=== PATIENT | male | born 1955 | race Caucasian/White ===

== ENCOUNTER 2016-08-06 17:20 | Inpatient (IN) ==
--- NOTE | 2016-08-06 18:24 | CT Report ---
CT head/brain wo con Indication: Mental status changes. CT BRAIN WITHOUT CONTRAST DLP: 1109 mGy*cm. One or more of the following dose reduction techniques was used: Automated exposure control, adjustment of the mA and/or kV according the patient size, or use of iterative reconstruction techniques. Comparison: None. Date of admission: 08/06/2016. Technique: Axial noncontrast CT images of the brain were obtained. Findings: Extensive chronic ischemic changes present throughout both hemispheres and throughout cerebellum. This consists of a broad band of infarct involving the left frontal, parietal and occipital lobe, scattered small cortical infarcts of the right frontoparietal lobe, large infarct of the right occipital lobe, too numerous to count bilateral lacunar infarcts basal ganglia, right temporal lobe infarct, and multiple bilateral cerebellar hemispheric infarcts. This appears superimposed on severe chronic small vessel ischemic change of the deep white matter, none of which appears normal. Delineating acute on chronic pathology is virtually impossible in this setting. Severe volume loss is present, accentuated by encephalomalacia and ex vacuo dilatation of the ventricles. No acute hemorrhage. I see no mass. Severe mucosal thickening of the left frontal, left maxillary and ethmoid air cells noted. Mild sphenoid sinus disease is present as well. Left mastoid air cells are completely opacified. The right are clear. Impression: 1. Extensive chronic ischemic changes as detailed above including too numerous to count cortical infarcts of both cerebellar and cerebral hemispheres, multiple lacunar infarcts of the basal ganglia and severe small vessel ischemic change of the deep white matter. It is virtually impossible to delineate acute ischemic pathology given the degree of underlying chronic disease present. 2. No acute hemorrhage. No evidence of mass. 3. Severe generalized atrophy accentuated by multiple infarcts. 4. Significant pansinusitis. Opacification of the left mastoid air cells. PROCEDURE INTERPRETED AT [facility] DEPARTMENT OF RADIOLOGY Final Report Signed by: Tino Solorzano M.D.
--- NOTE | 2016-08-06 18:27 | XRay Report ---
XR chest 1V portable Indication: Altered mental status. Chest one view: No comparison. Heart is minimally enlarged. Mediastinal contours unremarkable. Lungs are hypoinflated with bibasilar atelectasis. There is mild stranding of the infrahilar lungs, worse on the left, suspicious for aspiration pneumonitis. Impression: Pulmonary hypoinflation with atelectasis. Bilateral infrahilar interstitial scarring or pneumonitis. PROCEDURE INTERPRETED AT [facility] DEPARTMENT OF RADIOLOGY Final Report Signed by: Tino Solorzano M.D.
[2016-08-06 18:39] LABS: Apearance,Urine CLEAR (Clear); Bacteria,Urine Occasional /HPF (Few); Bilirubin,Urine Negative (Negative); Blood, Urine Negative (Negative); Glucose,Urine (UA) Negative (Negative); Ketones,Urine Negative (Negative); Nitrite,Urine Negative (Negative); Protein,Urine 100 MG/DL; Urine Color Straw (Yellow); Urine Specific Gravity 1.005 (1.001-1.035); Urine Urobilinogen < 2.0 EU/DL (0.2-1.0); WBC,Urine 1 /HPF (0-6)
[2016-08-06 18:43] LABS: Alanine Aminotransferase 11 U/L (16-61); Alkaline Phosphatase 82 U/L (45-117); Aspartate Amino Transferase 15 U/L (0-37); Blood Urea Nitrogen 83 MG/DL (7-18); Calcium 8.2 MG/DL (8.5-10.1); Glucose 111 MG/DL (74-106); Magnesium 2.3 MG/DL (1.8-2.4); Osmolality,Calculated 289.5 MOS/KG (273-304); Potassium 5.4 MMOL/L (3.5-5.1); Sodium 132 MMOL/L (136-145); Total Protein 6.5 G/DL (6.4-8.3); Troponin I Only < 0.015 NG/ML (0.00-0.045)
--- NOTE | 2016-08-06 18:53 | Emergency Department Note ---
Shukri Trinh Brittany, am scribing for, and in the presence of, Zohaib Newberry MD 17:48. Rohith Trinh Phillip K, MD, personally performed the services described in this documentation, ascribed by Layne Watt in my presence, and it is both accurate and complete [id number] . Arrival - Arrival Mode of Arrival: Stretcher Limitations: No Limitations Source: Family, EMS - History of Present Illness Onset (ago): day(s) (Started 2-3 days) Consistency: constant Severity: moderate, severe <Zohaib Newberry - Last Filed: 08/06/16 18:53> <Tsering Grullon - Last Filed: 08/06/16 20:03> - Arrival Chief Complaint: Altered Mental Status Stated Complaint: AMS - History of Present Illness HPI Narrative: This is a 61 y/o chronically ill appearing white male,who presents to the ED by EMS for further evaluation of a distended abdomen. 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 His family states pt gets a distended abdomen when he has a UTI and kidney infections, but these past 3-4 days the distention has progressed worse. He has had a cough with greenish/ yellowish sputum and fever as well. His family also reports a nose bleed on and off for the past week. His family reports pt does not have a cath. He normally sees Dr. Driscoll at the [facility] in [place]. Pt has no had vomiting. He has a feeding tube which was placed 7 years ago. Pt's family reports he takes a Baby Aspirin daily q.h.s. Pt has no other complaints/pain in the ED at this time. Pt has a PMHx CVA and paralysis. (Layne Watt) This is a 61 y/o chronically ill appearing white male,who presents to the ED by EMS for further evaluation of a distended abdomen. 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 His family states pt gets a distended abdomen when he has a UTI and kidney infections, but these past 3-4 days the distention has progressed worse. He has had a cough with greenish/ yellowish sputum and fever as well. His family also reports a nose bleed on and off for the past week. His family reports pt does not have a cath. He normally sees Dr. Driscoll at the [facility] in [place]. Pt has no had vomiting. He has a feeding tube which was placed 7 years ago. Pt's family reports he takes a Baby Aspirin daily q.h.s. Pt has no other complaints/pain in the ED at this time. Pt has a PMHx CVA and paralysis. (Zohaib Nebwerry) Allergies/Adverse Reactions: Allergies Allergy/AdvReac Type Severity Reaction Status Date / Time No Known Allergies Allergy Verified 08/06/16 17:29 Home Medications: Home Medications Medication Instructions Recorded Confirmed Type Aspirin EC Tab 81 mg PO QPM 08/06/16 08/06/16 History Ferrous Sulfate 325 mg PO BID 08/06/16 08/06/16 History Finasteride 5 mg PO DAILY 08/06/16 08/06/16 History Isosorbide Mononitrate [Imdur] 30 mg PO DAILY 08/06/16 08/06/16 History Methocarbamol 1,000 mg PO BID PRN 08/06/16 08/06/16 History Metoprolol Tartrate 50 mg PO 1000,1600,2200 08/06/16 08/06/16 History Omeprazole 40 mg PO DAILY 08/06/16 08/06/16 History Pregabalin [Lyrica] 225 mg PO 1000,2200 08/06/16 08/06/16 History Sertraline [Zoloft] 25 mg PO DAILY 08/06/16 08/06/16 History Simvastatin 20 mg PO BEDTIME 08/06/16 08/06/16 History Tamsulosin [Flomax] 0.4 mg PO DAILY 08/06/16 08/06/16 History Valsartan 80 mg PO 0600,1000,1600,2200 08/06/16 08/06/16 History cloNIDine TAB [Catapres Tab] 0.1 mg PO Q4H 08/06/16 08/06/16 History hydrALAZINE TAB [Apresoline Tab] 25 mg PO 1300 08/06/16 08/06/16 History hydrALAZINE TAB [Apresoline Tab] 50 mg PO 0600 08/06/16 08/06/16 History hydrALAZINE TAB [Apresoline Tab] 75 mg PO 1000,1600 08/06/16 08/06/16 History metFORMIN [Glucophage] 500 mg PO BID W/MEALS 08/06/16 08/06/16 History Review of System - Review of System 12 point system: reviewed and no additional remarkable complaints except as stated - Review of System Constitutional: Present: fever Respiratory: Present: cough (Productive of greenish/yellowish sputum) Gastrointestinal: Present: abdominal pain (Abdomen distended). Absent: vomiting <Candelario Newberryip Margarita - Last Filed: 08/06/16 18:53> Medical,Surgical,& Family Hx - Social History Functional capacity: bed bound <Zohaib Newberry Margarita - Last Filed: 08/06/16 18:53> Exam - General General appearance: alert, in no apparent distress, other (Chronically ill appearing) - Head Head exam: Present: atraumatic, normocephalic, normal inspection - Eye Eye exam: Present: normal appearance, PERRL, EOMI. Absent: nystagmus, miosis, mydriasis - ENT ENT exam: Present: mucous membranes moist, other (Dried blood to the left nares) - Neck Neck exam: Present: normal inspection, full ROM, trachea midline. Absent: tenderness, meningismus, lymphadenopathy, thyromegaly - Chest Chest inspection: Present: normal inspection, symmetric chest wall rise. Absent : tenderness, rash, abscess - Respiratory Respiratory exam: Present: normal lung sounds bilaterally. Absent: rales, respiratory distress, rhonchi, stridor, wheezes - Cardiovascular Cardiovascular exam: Present: regular rate, irregular rhythm, normal heart sounds. Absent: murmur, rubs, gallop, clicks, JVD - Abdominal Exam Abdominal exam: Present: distention, other (High pitched tinkling BS, Feeding tube in place). Absent: tenderness, guarding, rebound, rigidity - Rectal Exam Rectal exam: Present: deferred - Extremities Exam Extremities exam: Present: normal capillary refill, other (BIlateral swelling to the upper extremities). Absent: calf tenderness - Back Exam Back exam: Present: normal inspection, full ROM. Absent: tenderness, muscle spasm, rashes - Neurological Exam Neurological exam: Present: alert, oriented X3, CN II-XII intact, other ( Weakness to the right side of the body, paralysis to the right side of the body) . Absent: motor sensory deficit - Psychiatric Psychiatric exam: Present: normal affect, normal mood. Absent: agitated, anxious, flat affect, manic - Skin Skin exam: Present: warm, dry, intact, normal color. Absent: rash, cyanosis, diaphoresis, erythema, pallor, mottled <Zohaib Newberry - Last Filed: 08/06/16 18:53> Vital Signs: Vital Signs Temperature 97.9 F 08/06/16 17:30 Pulse Rate 87 08/06/16 18:30 Respiratory Rate 17 08/06/16 18:30 Blood Pressure 133/66 08/06/16 18:30 O2 Sat by Pulse Oximetry 98 08/06/16 18:30 Course <Zohaib Newberry - Last Filed: 08/06/16 18:53> <Tsering Grullon - Last Filed: 08/06/16 20:03> Course Narrative: spoke with Dr Estrada who will see pt and agrees to admission. (Tsering Grullon) Results - Labs CBC & BMP: 08/06/16 18:07 Lab Results: I have reviewed the patients labs (urinalysis is negative) - Diagnostic Findings Procedure: Chest x-ray: report reviewed by me (Pulmonary hypoinflation with atelectasis. Bilateral infrahilar interstitial scarring or pneumonitis. ), CT: report reviewed by me (Head CT: 1. Extensive chronic ischemic changes as detailed above including too numerous to count cortical infarcts of both cerebellar and cerebral hemispheres, multiple infarcts of the basal ganglia and severe small vessel ischemic change of the deep white matter. It is veriually impossible to delineate acute ischemic pathology [facility] degree of underlying chronic disease presetn. 2. No acute hemorrhage. No evidence of mass. 3. Severe generalized atrophy accentuated by mulitple infarcts. 4. Significant pansinusitis. Opacification of ino left mastoid air cells. ) <Zohaib Newberry - Last Filed: 08/06/16 18:53> - Labs CBC & BMP: 08/06/16 19:04 08/06/16 18:07 Lab Results: I have reviewed the patients labs <Tsering Grullon - Last Filed: 08/06/16 20:03> Disposition <Zohaib Newberry - Last Filed: 08/06/16 18:53> Case discussed with: patient, patient's family Time of Disposition: 20:03 <Tsering Grullon - Last Filed: 08/06/16 20:03> Clinical Impression: Anemia, Pneumonia Disposition: Still a Patient Condition: Stable
[2016-08-06] MEDS ORDERED: cefTRIAXone 1,000 MG in SODIUM CHLORIDE 0.9% 100 ML IV STA (19:13)
[2016-08-06] MEDS ORDERED: cefTRIAXone 1,000 MG VIAL ONE (19:16)
[2016-08-06] MEDS ORDERED: SODIUM CHLORIDE 0.9% 100 ML IV ONE (19:16)
[2016-08-06 19:40] LABS: Basophils % 0.2 % (0.0-0.8); Eosinophils # 1.1 10*3/uL (0.0-0.87); Hematocrit 21.3 VOL% (42.0-52.0); Hemoglobin 6.6 GM/DL (14.0-18.0); Immature Granulocytes % 0.5 %; Immature Granulocytes Absolute 0.05 #; Lymphocytes # 0.7 10*3/uL (1.4-4.0); Lymphocytes % 7.8 % (21.2-54.2); Mean Corpuscular Hemoglobin 27 PG (27-34); Mean Corpuscular Volume 87.3 FL (87-102); Mean Platelet Volume 12.3 FL (9.6-12.0); Monocytes # 0.9 10*3/uL (0.11-0.8); Monocytes % 9.7 % (1.7-12.7); Neutrophils # 6.4 10*3/uL (1.4-7.4); Neutrophils % 69.8 % (38.7-73.9); Platelet Count 141 T/CUMM (130-400); Red Blood Count 2.44 MC/CUMM (3.8-5.5); Red Cell Distribution Width 17.8 % (9.3-17.3); White Blood Count 9.2 T/CUMM (4-12)
[2016-08-06 20:00] LABS: Anisocytosis 1+; Eosinophils 14 % (0-10); Hypochromasia 1+; Lymphocytes 4 % (20-55); Platelet Estimate Adequate; Segmented Neutrophils 77 % (50-85); Total Cells Counted 100
[2016-08-06 20:01] LABS: Microcytosis Slight
[2016-08-06] MEDS ORDERED: ALBUTEROL 2.5 MG/3 ML NEB RESP TX PRN (21:32)
[2016-08-06] MEDS ORDERED: DEXTROSE 50% 25 GM/50 ML VIAL IV PRN (21:40)
[2016-08-06] MEDS ORDERED: GLUCAGON 1 MG VIAL IM PRN (21:40)
--- NOTE | 2016-08-06 21:53 | Hospitalist History & Physical ---
Assessment and Plan (1) Bedbound patient Status: Acute Current Visit: Yes (2) History of multiple strokes Status: Acute Current Visit: Yes (3) Hypertension Status: Acute Current Visit: Yes (4) Neuropathy Status: Acute Current Visit: Yes (5) Anemia Status: Acute Current Visit: Yes (6) Pneumonia Status: Acute Assessment and plan: Our plan for this patient will be admitting him to our service. We will check glucose before meals and at bedtime. We will start him on IV antibiotics. We will have him on schedule breathing treatments and as needed breathing treatments. We will continue his home meds as appropriate. The home holding back some of his home blood pressure medicines we might have to add additional ones later. Current Visit: Yes History of Present Illness Chief complaint: Cough and fever History of present illness: Mr. Kim is a 61 year old male with past medical history significant for multiple strokes, right-sided paralysis, bedbound patient since , hypertension , diabetes and neuropathy he was seen by his home health nurse today. Patient' s home health nurse felt that he was breathing funny and needed to be evaluated at the emergency room. Family also reports some blood clots coming out of his nose at times. His sister who is his caregiver thought his breathing was different. She did confirm that he had a cough and fever. They normally go to [facility] but decided to try our institution instead. I was consulted for admission to the emergency room Home Medications Medication Instructions Recorded Confirmed Type Aspirin EC Tab 81 mg PO QPM 08/06/16 08/06/16 History Ferrous Sulfate 325 mg PO BID 08/06/16 08/06/16 History Finasteride 5 mg PO DAILY 08/06/16 08/06/16 History Isosorbide Mononitrate [Imdur] 30 mg PO DAILY 08/06/16 08/06/16 History Methocarbamol 1,000 mg PO BID PRN 08/06/16 08/06/16 History Metoprolol Tartrate 50 mg PO 1000,1600,2200 08/06/16 08/06/16 History Omeprazole 40 mg PO DAILY 08/06/16 08/06/16 History Pregabalin [Lyrica] 225 mg PO 1000,2200 08/06/16 08/06/16 History Sertraline [Zoloft] 25 mg PO DAILY 08/06/16 08/06/16 History Simvastatin 20 mg PO BEDTIME 08/06/16 08/06/16 History Tamsulosin [Flomax] 0.4 mg PO DAILY 08/06/16 08/06/16 History Valsartan 80 mg PO 0600,1000,1600,2200 08/06/16 08/06/16 History cloNIDine TAB [Catapres Tab] 0.1 mg PO Q4H 08/06/16 08/06/16 History hydrALAZINE TAB [Apresoline Tab] 25 mg PO 1300 08/06/16 08/06/16 History hydrALAZINE TAB [Apresoline Tab] 50 mg PO 0600 08/06/16 08/06/16 History hydrALAZINE TAB [Apresoline Tab] 75 mg PO 1000,1600 08/06/16 08/06/16 History metFORMIN [Glucophage] 500 mg PO BID W/MEALS 08/06/16 08/06/16 History Allergies Allergy/AdvReac Type Severity Reaction Status Date / Time No Known Allergies Allergy Verified 08/06/16 17:29 Medical,Surgical,& Family Hx - Medical History Cardio: History of: Aneurysm, Hypertension Psychological: History of: Anxiety Disorders, Depression Neurology: History of: Cerebral Hemorrhage, Cerebrovascular Accident Endocrine: History of: Diabetes Mellitus (NIDDM) Rheumatology: History of;: Rheumatoid Arthritis Genitourinary: History of: Prostate Problems - Surgical History Neurologic Surgeries: Surgical HX of: Cerebral Hemorrhage - Family History Family History: Reports;: Family Diabetes, Family Heart Disease, Family Hypertension - Social History Smoking Status: Never smoker Frequency of Alcohol Use: None Type of Drug Use: None ROS unobtainable: due to mental status Exam - Constitutional Vitals: Period Temp Pulse Resp BP Sys/Crespo Pulse Ox Last 24 Hr 97.9 F-97.9 F 87-90 15-17 123-138/63-75 93-98 - General General appearance: Chronically ill-appearing alert, in no apparent distress, - Head Head exam: Present: atraumatic, normocephalic, normal inspection - Eye Eye exam: Present: normal appearance, PERRL, EOMI. Absent: nystagmus, miosis, mydriasis - ENT ENT exam: Present: mucous membranes moist, other (Dried blood to the left nares) - Neck Neck exam: Present: normal inspection, full ROM, trachea midline. - Chest Chest inspection: Present: normal inspection, symmetric chest wall rise. - Respiratory Respiratory exam: Present: normal lung sounds bilaterally. - Cardiovascular Cardiovascular exam: Present: regular rate, irregular rhythm, normal heart sounds. - Abdominal Exam Abdominal exam: Present: distention, other (High pitched tinkling BS, Feeding tube in place). - Rectal Exam Rectal exam: Present: deferred - Extremities Exam Extremities exam: Present: normal capillary refill, other (BIlateral swelling to the upper extremities). Absent: calf tenderness - Back Exam Back exam: Present: normal inspection, full ROM. Absent: tenderness, muscle spasm, rashes - Neurological Exam Neurological exam: Present: alert, oriented X3, CN II-XII intact, other ( Weakness to the right side of the body, paralysis to the right side of the body) . Absent: motor sensory deficit - Psychiatric Psychiatric exam: Present: normal affect, normal mood. Absent: agitated, anxious, flat affect, manic - Skin Skin exam: Present: warm, dry, intact, normal color. Absent: rash, cyanosis, diaphoresis, erythema, pallor, mottled Results - Labs CBC & BMP: 08/06/16 19:04 08/06/16 18:07 Quality Measures - Stroke Onset of Symptoms Date: 08/03/16
--- NOTE | 2016-08-06 22:34 | EKG Report ---
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
[2016-08-07] MEDS: ALBUTEROL/IPRATROPIUM 3 ML NEB RESP TX SCH ×5 (01:22→19:40)
[2016-08-07] MEDS: VALSARTAN 80 MG TABLET PO SCH ×3 (02:08→10:19)
[2016-08-07] MEDS: AZITHROMYCIN INJ 500 MG in SODIUM CHLORIDE 0.9% 250 ML IV SCH ×2 (02:08→22:59)
[2016-08-07] MEDS: SODIUM CHLORIDE 0.9% 1,000 ML IV SCH ×3 (02:08→17:44)
[2016-08-07] MEDS: PREGABALIN 75 MG CAPSULE PO SCH ×3 (02:09→22:57)
[2016-08-07] MEDS: METOPROLOL TARTRATE 50 MG TABLET PO SCH ×4 (02:09→23:00)
[2016-08-07 04:28] LABS: Basophils % 0.1 % (0.0-0.8); Eosinophils # 0.5 10*3/uL (0.0-0.87); Eosinophils % 7.5 % (0.00-10.9); Hematocrit 21.5 VOL% (42.0-52.0); Hemoglobin 6.7 GM/DL (14.0-18.0); Immature Granulocytes % 1.2 %; Immature Granulocytes Absolute 0.08 #; Lymphocytes # 0.5 10*3/uL (1.4-4.0); Lymphocytes % 7.5 % (21.2-54.2); Mean Corpuscular HGB Conc 31.2 GM/DL (32-36); Mean Corpuscular Hemoglobin 27 PG (27-34); Mean Corpuscular Volume 85.3 FL (87-102); Mean Platelet Volume 13.4 FL (9.6-12.0); Monocytes # 0.6 10*3/uL (0.11-0.8); NRBC # 0.02 10*3/uL; Neutrophils % 74.7 % (38.7-73.9); Platelet Count 144 T/CUMM (130-400); Red Blood Count 2.52 MC/CUMM (3.8-5.5); Red Cell Distribution Width 17.9 % (9.3-17.3); White Blood Count 6.8 T/CUMM (4-12)
[2016-08-07 04:55] LABS: Calcium 8.4 MG/DL (8.5-10.1); Osmolality,Calculated 292.1 MOS/KG (273-304); Potassium 5.3 MMOL/L (3.5-5.1)
--- NOTE | 2016-08-07 07:46 | XRay Report ---
Portable chest Date: 08/07/2016 Clinical history: Shortness of breath Comparison: 08/06/2016 Technique: Portable AP sitting chest Findings: The heart is minimally enlarged. Progressive shift of the mediastinum to the left with increased parenchymal findings in the left mid to lower lung zone and at the right lung base. Degenerative changes are noted. Impression: Stable cardiomegaly. Progressive probable pneumonia especially in the left mid to lower lung zone with small left pleural effusion. Additional increased atelectasis/infiltrate at the right lung base. Shift of the mediastinum to the left. Follow-up chest x-ray is recommended. PROCEDURE INTERPRETED AT [facility] DEPARTMENT OF RADIOLOGY Final Report Signed by: Dr. Danielle yDer
[2016-08-07] MEDS: SERTRALINE 25 MG TABLET PO SCH (10:20)
[2016-08-07] MEDS: FERROUS SULFATE 325 MG TABLET PO SCH ×2 (10:20→22:57)
[2016-08-07] MEDS: PANTOPRAZOLE 40 MG TABLET PO SCH (10:20)
[2016-08-07] MEDS: ISOSORBIDE MONONITRATE 30 MG TABLET PO SCH (10:21)
[2016-08-07] MEDS: INSULIN REGULAR 100 UNIT/ML SUBCUT SCH ×4 (10:21→22:59)
[2016-08-07] MEDS: TAMSULOSIN 0.4 MG CAPSULE PO SCH (10:21)
[2016-08-07] MEDS: FINASTERIDE 5 MG TABLET PO SCH (10:21)
[2016-08-07] MEDS: ACETAMINOPHEN 325 MG TABLET PO PRN ×2 (10:48→13:30)
--- NOTE | 2016-08-07 12:44 | EKG Report ---
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
--- NOTE | 2016-08-07 13:26 | Hospitalist Progress Note ---
Hospitalist: Subjective Interval history: reports pt has had a bloody nose for 1 week and it persists here. Low grade temp overnight and has been started tylenol. Pt is a Jehovah Witness and has declined blood transfusion. Awaiting tubefeeds. Exam - Constitutional Vitals: Period Temp Pulse Resp BP Sys/Crespo Pulse Ox Last 24 Hr 98.8 F-100.9 F 62-115 16-24 139-161/64-86 91-100 Exam: GEN: Awake, alert, nonverbal, chronically ill appearing HEENT: bloody nose, MMM, drooling NECK: Supple, no JVD, no LAD CV: RRR no M LUNGS: Coarse bilaterally, fair aeration, nonlabored breathing noted ABDOMEN: Soft, NT, ND, hypoactive bowel sounds. EXTREMITIES: Warm, trace bilateral upper extremity edema, +atrophy limbs NEURO: unable to fully complete as pt did not cooperate with the exam Results - Labs CBC & BMP: 08/07/16 02:57 08/07/16 02:57 Labs: Blood cultures reportedly pending - Impressions (1) Suspected acute aspiration pneumonia Status: Acute Current Visit: Yes - Change Rocephin to Merrem for more anaerobic and gram negative coverage. Cont Azithromycin for atypical organisms - Sputum culture if available. F/U Blood cultures. - Aspiration precautions - Bronchodilators, oxygen as needed, pulmonary toileting (2) Acute pansinusitis with epistaxis Status: Acute Current Visit: Yes - Noted on head CT. - IV antibiotics. Would likely to do decongestants (nasal saline) but I do not think pt would be able to cooperate to do it. - Hold ASA (3) History of multiple strokes with aphasia and dysphagia s/p PEG Status: Acute Current Visit: Yes - Hold ASA due to nose bleeds. Cont statin - Nutrition to resume tubefeeds and free water replacement (4) Essential Hypertension Status: Acute Current Visit: Yes - Controlled. Hold Diovan due to elevated K and Creatinine for now. Cont other meds and monitor vitals. 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 Pt has been started on iron supplementation. - Check anemia panel - Hold blood thinners. (7) History of DM2 - holding metformin due to elevated creatinine. Accuchecks q6h. I.S.S. (8) Bedbound patient Status: chronic (9) Elevated creatinine- I wonder if pt has CKD vs. Acute renal failure on CKD - Gentle hydration. Avoid nephrotoxic agents. Renally dose meds. Hold Diovan for now (10) Upper extremity edema - reports edema is new. Will check UE dopplers. SCDs for DVT prophylaxis D/W nurse and and all questions answered. Quality Measures - Stroke Onset of Symptoms Date: 08/03/16
[2016-08-07] MEDS: METHOCARBAMOL 500 MG TABLET PO PRN (13:30)
[2016-08-07] MEDS: MEROPENEM 1,000 MG in SODIUM CHLORIDE 0.9% 100 ML IV SCH (15:17)
--- NOTE | 2016-08-07 15:24 | Ultrasound Report ---
Exam: Bilateral upper extremity venous Doppler/duplex ultrasound Comparison: None Clinical history: Arm swelling Technique: Duplex scan of the both upper extremity veins using th B- mode/grayscale imaging and Dopplers spectral analysis and color flow. Findings: There is normal flow in the both internal jugular, subclavian, axillary, brachial, basilic, and cephalic veins. No filling defects are identified. Major venous structures of the both upper extremity demonstrating normal course and caliber with normal color-flow study and spectral analysis. Impression: No evidence to suggest venous thrombosis within both upper extremity. Ultrasound images were captured and stored. PROCEDURE INTERPRETED AT [facility] DEPARTMENT OF RADIOLOGY Final Report Signed by: Dr. Danielle Dyer
--- NOTE | 2016-08-07 16:15 | Nephrology Consult Note ---
History of Present Illness Chief complaint: Increased BUN and creatinine History of present illness: Mr. Kim is a 61 year old male who was admitted for persistent nosebleeds swelling in his upper extremities and abdominal distention. We were asked to see the patient for increased creatinine as well as associated anemia. Patient has a history of multiple strokes and has been bedbound for the past 6-8 years. The history is taken from the chart and healthcare personnel and from the patient's sister. The patient's sister states that she manually removes the patient's mucus buildup in his nasal cavity and did so a week or 2 ago and since that time the patient has been bleeding from his nose intermittently. The patient has also developed upper extremity swelling the past week or so. The patient is also developed some problems with abdominal distention and in the past the patient's sister states this is usually related to a urinary tract infection. The patient recently switched doctors a couple weeks ago and per the sister she was told that the patient had weak kidneys at that time. The patient has about a 20 year history of diabetes and hypertension. The patient' s creatinine on admission was around 2 mg/dL and this is unchanged today. Review of systems unable be obtained due to patient's medical condition PE: General: Chronically ill-appearing Eyes: Pupils are round and reactive, conjunctivae are clear ENT: Nose is clear, O/P is benign Neck: Supple, no thyromegaly Lymphatics: No cervical, supraclavicular or axillary adenopathy Heart: Regular rate and rhythm, no pitting edema Lungs: Clear to auscultation anteriorly, chest expansion symmetric Abdomen: Soft, normoactive bowel sounds, no hepatomegaly Musculoskeletal: No joint erythema or effusions or joint asymmetry Skin: Normal turgor, normal hydration, no rash Neuro/Psych: Patient opens his eyes and looks about he does not follow any commands, he has no insight into his illness that I can tell. Home Medications Medication Instructions Recorded Confirmed Type Aspirin EC Tab 81 mg PO QPM 08/06/16 08/06/16 History Ferrous Sulfate 325 mg PO BID 08/06/16 08/06/16 History Finasteride 5 mg PO DAILY 08/06/16 08/06/16 History Isosorbide Mononitrate [Imdur] 30 mg PO DAILY 08/06/16 08/06/16 History Methocarbamol 1,000 mg PO BID PRN 08/06/16 08/06/16 History Metoprolol Tartrate 50 mg PO 1000,1600,2200 08/06/16 08/06/16 History Omeprazole 40 mg PO DAILY 08/06/16 08/06/16 History Pregabalin [Lyrica] 225 mg PO 1000,2200 08/06/16 08/06/16 History Sertraline [Zoloft] 25 mg PO DAILY 08/06/16 08/06/16 History Simvastatin 20 mg PO BEDTIME 08/06/16 08/06/16 History Tamsulosin [Flomax] 0.4 mg PO DAILY 08/06/16 08/06/16 History Valsartan 80 mg PO 0600,1000,1600,2200 08/06/16 08/06/16 History cloNIDine TAB [Catapres Tab] 0.1 mg PO Q4H 08/06/16 08/06/16 History hydrALAZINE TAB [Apresoline Tab] 25 mg PO 1300 08/06/16 08/06/16 History hydrALAZINE TAB [Apresoline Tab] 50 mg PO 0600 08/06/16 08/06/16 History hydrALAZINE TAB [Apresoline Tab] 75 mg PO 1000,1600 08/06/16 08/06/16 History metFORMIN [Glucophage] 500 mg PO BID W/MEALS 08/06/16 08/06/16 History Allergies Allergy/AdvReac Type Severity Reaction Status Date / Time No Known Allergies Allergy Verified 08/06/16 17:29 Medical,Surgical,& Family Hx - Medical History Cardio: History of: Aneurysm, Hypertension Psychological: History of: Anxiety Disorders, Depression Neurology: History of: Cerebral Hemorrhage, Cerebrovascular Accident Endocrine: History of: Diabetes Mellitus (NIDDM) Rheumatology: History of;: Rheumatoid Arthritis Genitourinary: History of: Prostate Problems - Surgical History Neurologic Surgeries: Surgical HX of: Cerebral Hemorrhage - Family History Family History: Reports;: Family Diabetes, Family Heart Disease, Family Hypertension - Social History Smoking Status: Never smoker Frequency of Alcohol Use: None Type of Drug Use: None Exam - Vital Signs Vital signs: Period Temp Pulse Resp BP Sys/Crespo Pulse Ox Last 24 Hr 98.8 F-100.9 F 62-115 16-24 139-161/64-86 91-100 Results - Labs CBC & BMP: 08/07/16 02:57 08/07/16 02:57 Assessment and Plan (1) Chronic kidney disease, stage III (moderate) Status: Acute Assessment and plan: I suspect this patient has chronic kidney disease related to long-standing diabetes and hypertension. Will check a renal ultrasound. I will also check a spot urine microalbumin to creatinine ratio. Current Visit: Yes (2) Dementia Status: Acute Current Visit: Yes (3) Diabetes mellitus Status: Acute Current Visit: Yes (4) Anemia Status: Acute Assessment and plan: Patient has a hematocrit of 21%, he is a Baptism, he is having epistaxis. In light of his continued bleed we can give him Aranesp to try and stimulate his bowels to make red blood cells this will take about a week or 2 before to have any major effect. I will first check iron stores as if he is iron deficient Aranesp may not do much to increase his red blood cell count. Current Visit: Yes (5) Bedbound patient Status: Acute Current Visit: Yes (6) History of multiple strokes Status: Acute Current Visit: Yes (7) Hypertension Status: Acute Current Visit: Yes
[2016-08-07] MEDS ORDERED: cefTRIAXone 1,000 MG in SODIUM CHLORIDE 0.9% 100 ML IV SCH (20:00)
--- NOTE | 2016-08-07 20:14 | Ultrasound Report ---
US renal Bilateral Indication: Elevated creatinine. Ultrasound kidneys: Right kidney 103 x 41 x 46 mm. There is a solid 16 x 18 x 16 mm mass at the upper pole, exophytic. There is a hypoechoic collection within the upper pole cortex measuring 13 x 15 x 17 mm. There is a 3 x 5 x 4 mm cyst at the lower pole. No calcification or obstruction. Normal color Doppler flow. Left kidney is 111 x 53 x 56 mm. There is a 13 x 14 x 12 mm anechoic cyst at the lower pole. No solid mass, calcification or obstruction. Normal color Doppler flow. Impression: 1. No acute obstructive pathology shown. 2. Right renal mass, upper pole. Neoplasm is primary concern. Probable additional cysts as described. Consider dedicated CT of the kidneys. PROCEDURE INTERPRETED AT [facility] DEPARTMENT OF RADIOLOGY Final Report Signed by: Tino Solorzano M.D.
[2016-08-07] MEDS: ASPIRIN EC 81 MG TABLET PO SCH (22:57)
[2016-08-07] MEDS: SIMVASTATIN 20 MG TABLET PO SCH (22:58)
[2016-08-08] MEDS: MEROPENEM 1,000 MG in SODIUM CHLORIDE 0.9% 100 ML IV SCH ×2 (02:53→14:08)
[2016-08-08 05:09] LABS: Basophils % 0.2 % (0.0-0.8); Eosinophils # 0.9 10*3/uL (0.0-0.87); Eosinophils % 15.4 % (0.00-10.9); Hematocrit 23.2 VOL% (42.0-52.0); Hemoglobin 6.9 GM/DL (14.0-18.0); Immature Granulocytes % 0.5 %; Immature Granulocytes Absolute 0.03 #; Lymphocytes # 0.6 10*3/uL (1.4-4.0); Mean Corpuscular HGB Conc 29.7 GM/DL (32-36); Mean Corpuscular Hemoglobin 26 PG (27-34); Mean Corpuscular Volume 88.2 FL (87-102); Mean Platelet Volume 12.8 FL (9.6-12.0); Monocytes # 0.7 10*3/uL (0.11-0.8); Monocytes % 10.8 % (1.7-12.7); Neutrophils # 3.9 10*3/uL (1.4-7.4); Neutrophils % 64.1 % (38.7-73.9); Platelet Count 156 T/CUMM (130-400); Red Blood Count 2.63 MC/CUMM (3.8-5.5); Red Cell Distribution Width 17.9 % (9.3-17.3); White Blood Count 6.1 T/CUMM (4-12)
[2016-08-08] MEDS: LABETALOL 100 MG/20 ML VIAL IV PRN ×2 (05:21→07:23)
[2016-08-08 05:39] LABS: Calcium 8.1 MG/DL (8.5-10.1)
[2016-08-08 05:40] LABS: Osmolality,Calculated 311.7 MOS/KG (273-304); Potassium 4.6 MMOL/L (3.5-5.1)
[2016-08-08 05:41] LABS: Eosinophils 15 % (0-10); Ferritin 43.6 ng/ml (26-388); Hypochromasia 1+; Lymphocytes 8 % (20-55); Microcytosis 1+; Platelet Estimate Adequate; Polychromasia Slight; Segmented Neutrophils 67 % (50-85); Total Cells Counted 100
[2016-08-08 05:42] LABS: Magnesium 2.6 MG/DL (1.8-2.4); Prealbumin 20.1 MG/DL (20-40)
[2016-08-08] MEDS: ALBUTEROL/IPRATROPIUM 3 ML NEB RESP TX SCH ×4 (06:46→19:50)
[2016-08-08] MEDS: SODIUM CHLORIDE 0.9% 1,000 ML IV SCH ×2 (06:57→18:14)
[2016-08-08] MEDS: SERTRALINE 25 MG TABLET PO SCH (09:46)
[2016-08-08] MEDS: METOPROLOL TARTRATE 50 MG TABLET PO SCH ×3 (09:46→21:57)
[2016-08-08] MEDS: ISOSORBIDE MONONITRATE 30 MG TABLET PO SCH (09:46)
[2016-08-08] MEDS: TAMSULOSIN 0.4 MG CAPSULE PO SCH (09:46)
[2016-08-08] MEDS: PREGABALIN 75 MG CAPSULE PO SCH ×2 (09:46→21:56)
[2016-08-08] MEDS: FERROUS SULFATE 325 MG TABLET PO SCH ×2 (09:46→21:57)
[2016-08-08] MEDS: PANTOPRAZOLE 40 MG TABLET PO SCH (09:46)
[2016-08-08] MEDS: FINASTERIDE 5 MG TABLET PO SCH (09:46)
--- NOTE | 2016-08-08 11:32 | Hospitalist Progress Note ---
Hospitalist: Subjective Interval history: Patient is mobilizing secretions better now. Blood pressure was elevated overnight and received labetalol IV. He seems to be more awake today. Patient is nonverbal. Tolerating tube feeds. No fever. Exam - Constitutional Vitals: Period Temp Pulse Resp BP Sys/Crespo Pulse Ox Last 24 Hr 98.2 F-101.1 F 89-112 18-20 146-218/65-92 90-100 Exam: GEN: Awake, alert, nonverbal, chronically ill appearing HEENT: No epistaxis noted, MMM, NECK: Supple, no JVD, no LAD CV: RRR no M LUNGS: Coarse bilaterally, better aeration, nonlabored breathing noted ABDOMEN: Soft, NT, ND, hypoactive bowel sounds. EXTREMITIES: Warm, trace bilateral upper extremity edema, +atrophy limbs NEURO: unable to fully complete as pt did not cooperate with the exam Results - Labs CBC & BMP: 08/08/16 04:39 08/08/16 04:39 Labs: Blood cultures reveal no growth to date at this point. - Impressions (1) Suspected acute aspiration pneumonia Status: Acute Current Visit: Yes - Cont Merrem for more anaerobic and gram negative coverage. Cont Azithromycin for atypical organisms - Sputum culture if available. F/U Blood cultures. - Aspiration precautions -Continue bronchodilators, oxygen as needed, pulmonary toileting (2) Acute pansinusitis with epistaxis Status: Acute Current Visit: Yes - Noted on head CT. - IV antibiotics. Would likely to do decongestants (nasal saline) but I do not think pt would be able to cooperate to do it. - Hold ASA (3) History of multiple strokes with aphasia and dysphagia s/p PEG Status: Acute Current Visit: Yes - Hold ASA due to nose bleeds. Cont statin - Nutrition to resume tubefeeds and free water replacement (4) Essential Hypertension Status: Acute Current Visit: Yes - uncontrolled. Hold Diovan due to elevated K and Creatinine for now. Cont other meds and add clonidine and monitor vitals. 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 Pt has been started on iron supplementation. - Check anemia panel - Hold blood thinners. (7) History of DM2 - holding metformin due to elevated creatinine. Accuchecks q6h. I.S.S. (8) Bedbound patient Status: chronic (9) Elevated creatinine- improving. I wonder if pt has CKD vs. Acute renal failure on CKD - Gentle hydration. Avoid nephrotoxic agents. Renally dose meds. Hold Diovan for now (10) Upper extremity edema - UE dopplers are negative (11) AAA - BP control. Family has declined surgery for this in the past (12) renal mass suggestive of cancer - consult urology SCDs for DVT prophylaxis D/W nurse and family and all questions answered. Quality Measures - Stroke Onset of Symptoms Date: 08/03/16
[2016-08-08] MEDS ORDERED: cloNIDine 0.1 MG/24 HR PATCH TRANSDERM SCH (12:00)
[2016-08-08] MEDS: INSULIN REGULAR 100 UNIT/ML SUBCUT SCH ×4 (12:19→21:56)
[2016-08-08] MEDS: ACETAMINOPHEN 325 MG TABLET PO PRN ×2 (12:21→16:25)
--- NOTE | 2016-08-08 14:30 | Urology Consultation ---
History of Present Illness - Data of Consult Consult date: 08/08/16 - Consult Narrative History of present illness: Mr. Kim is a 61 year old male This 61-year-old white male is seen in consultation because of the finding of a upper pole with solid right renal mass on ultrasound. The patient has had a stroke is bed ridden and is unable to give a history. He has a history of chronic renal disease and dementia. There is no history of gross hematuria and there is no hematuria documented on his urinalysis. His initial creatinine was 2.1 this is decreased to 1.7. The renal mass is exophytic in the upper pole of the right kidney and measures 1-2 cm. On the recommended we continue to monitor the renal function and if it improves enough we will get a CT of the kidney with dye or CT without dye or an MRI CC: Judy Phipps MD - Home Medications and Allergies Home Medications: Home Medications Medication Instructions Recorded Confirmed Type Aspirin EC Tab 81 mg PO QPM 08/06/16 08/06/16 History Ferrous Sulfate 325 mg PO BID 08/06/16 08/06/16 History Finasteride 5 mg PO DAILY 08/06/16 08/06/16 History Isosorbide Mononitrate [Imdur] 30 mg PO DAILY 08/06/16 08/06/16 History Methocarbamol 1,000 mg PO BID PRN 08/06/16 08/06/16 History Metoprolol Tartrate 50 mg PO 1000,1600,2200 08/06/16 08/06/16 History Omeprazole 40 mg PO DAILY 08/06/16 08/06/16 History Pregabalin [Lyrica] 225 mg PO 1000,2200 08/06/16 08/06/16 History Sertraline [Zoloft] 25 mg PO DAILY 08/06/16 08/06/16 History Simvastatin 20 mg PO BEDTIME 08/06/16 08/06/16 History Tamsulosin [Flomax] 0.4 mg PO DAILY 08/06/16 08/06/16 History Valsartan 80 mg PO 0600,1000,1600,2200 08/06/16 08/06/16 History cloNIDine TAB [Catapres Tab] 0.1 mg PO Q4H 08/06/16 08/06/16 History hydrALAZINE TAB [Apresoline Tab] 25 mg PO 1300 08/06/16 08/06/16 History hydrALAZINE TAB [Apresoline Tab] 50 mg PO 0600 08/06/16 08/06/16 History hydrALAZINE TAB [Apresoline Tab] 75 mg PO 1000,1600 08/06/16 08/06/16 History metFORMIN [Glucophage] 500 mg PO BID W/MEALS 08/06/16 08/06/16 History Allergies/Adverse Reactions: Allergies Allergy/AdvReac Type Severity Reaction Status Date / Time No Known Allergies Allergy Verified 08/06/16 17:29 Exam - Constitutional Vitals: Period Temp Pulse Resp BP Sys/Crespo Pulse Ox Last 24 Hr 98.2 F-101.3 F 89-112 18-20 147-218/70-92 90-100 Results - Labs CBC & BMP: 08/08/16 04:39 08/08/16 04:39
--- NOTE | 2016-08-08 16:07 | Nephrology Progress Note ---
Nephrology - PN: Subj Interval history: Patient remains nonresponsive. Physical exam general patient is chronically ill-appearing, heart is regular rate and rhythm, he has no pitting edema, lungs are clear to auscultation anteriorly, abdomen is soft with positive bowel sounds Assessment/plan 1. Renal failure-I suspect this patient has long-standing diabetic nephropathy although I do not have any previous lab than this hospitalization to go by. He was told by his local physician a couple weeks ago that he had some chronic kidney disease. The patient's creatinine is improved today at 1.7 mg/dL down from around 2 mg/dL. the patient does leak about 5.7 g of protein leakage per day on spot urine microalbumin to creatinine analysis. 2. Renal mass-this patient was found to have a renal mass by ultrasound done yesterday, he has been seen by Dr. Tate will follow up his recommendations. 3. Anemia-patient's hematocrit is 23%, he appears to be iron deficient, I am going to Hemoccult his stools and start him on iron sulfate I am inclined to hold off on starting him on Aranesp at this time. 4. Cerebrovascular disease-this patient has had recurrent strokes in the past he has been bedbound for 8 years Exam (PN)-Nephrology - Vital Signs Vital signs: Period Temp Pulse Resp BP Sys/Crespo Pulse Ox Last 24 Hr 98.2 F-101.3 F 89-115 18-22 149-218/70-92 90-100 - Lab 08/08/16 04:39 08/08/16 04:39 Most recent lab results Calcium 8.1 MG/DL (8.5-10.1) L 08/08/16 04:39 Phosphorus 4.0 MG/DL (2.5-4.9) 08/08/16 04:39 Magnesium 2.6 MG/DL (1.8-2.4) H 08/08/16 04:39 Assessment and Plan (1) Chronic kidney disease, stage III (moderate) Status: Acute Assessment and plan: I suspect this patient has chronic kidney disease related to long-standing diabetes and hypertension. Will check a renal ultrasound. I will also check a spot urine microalbumin to creatinine ratio. Current Visit: Yes (2) Dementia Status: Acute Current Visit: Yes (3) Diabetes mellitus Status: Acute Current Visit: Yes (4) Anemia Status: Acute Assessment and plan: Patient has a hematocrit of 21%, he is a Spiritism, he is having epistaxis. In light of his continued bleed we can give him Aranesp to try and stimulate his bowels to make red blood cells this will take about a week or 2 before to have any major effect. I will first check iron stores as if he is iron deficient Aranesp may not do much to increase his red blood cell count. Current Visit: Yes (5) Bedbound patient Status: Acute Current Visit: Yes (6) History of multiple strokes Status: Acute Current Visit: Yes (7) Hypertension Status: Acute Current Visit: Yes
[2016-08-08] MEDS: ASPIRIN EC 81 MG TABLET PO SCH (21:56)
[2016-08-08] MEDS: SIMVASTATIN 20 MG TABLET PO SCH (21:57)
[2016-08-08] MEDS: AZITHROMYCIN 250 MG TABLET PO SCH (21:57)
[2016-08-09] MEDS: LABETALOL 100 MG/20 ML VIAL IV PRN (00:35)
[2016-08-09] MEDS: MEROPENEM 1,000 MG in SODIUM CHLORIDE 0.9% 100 ML IV SCH ×2 (02:21→14:16)
[2016-08-09] MEDS: SODIUM CHLORIDE 0.9% 1,000 ML IV SCH ×2 (05:19→18:38)
[2016-08-09] MEDS: ALBUTEROL/IPRATROPIUM 3 ML NEB RESP TX SCH ×4 (07:21→19:36)
--- NOTE | 2016-08-09 08:55 | Urology Progress Note ---
Urology - PN: Subj Interval history: Creatinine is slightly better today. Possible CT or MRI next week Exam - Constitutional Vitals: Period Temp Pulse Resp BP Sys/Crespo Pulse Ox Last 24 Hr 99 F-101.3 F 100-115 16-25 149-195/68-88 92-99 Results - Labs CBC & BMP: 08/08/16 04:39 08/09/16 04:01
[2016-08-09] MEDS: TAMSULOSIN 0.4 MG CAPSULE PO SCH (09:49)
[2016-08-09] MEDS: ACETAMINOPHEN 325 MG TABLET PO PRN ×2 (09:49→21:51)
[2016-08-09] MEDS: INSULIN REGULAR 100 UNIT/ML SUBCUT SCH ×4 (09:49→21:52)
[2016-08-09] MEDS: FERROUS SULFATE 325 MG TABLET PO SCH ×2 (09:50→21:51)
[2016-08-09] MEDS: SERTRALINE 25 MG TABLET PO SCH (09:50)
[2016-08-09] MEDS: PANTOPRAZOLE 40 MG TABLET PO SCH (09:50)
[2016-08-09] MEDS: PREGABALIN 75 MG CAPSULE PO SCH ×2 (09:50→21:51)
[2016-08-09] MEDS: METOPROLOL TARTRATE 50 MG TABLET PO SCH ×3 (09:50→21:51)
[2016-08-09] MEDS: FINASTERIDE 5 MG TABLET PO SCH (09:50)
[2016-08-09] MEDS: ISOSORBIDE MONONITRATE 30 MG TABLET PO SCH (09:50)
[2016-08-09] MEDS: DESITIN 4OZ/NYSTATIN 15 GRAM MIXTURE PASTE TOP SCH ×2 (10:15→21:52)
--- NOTE | 2016-08-09 14:28 | Nephrology Progress Note ---
Nephrology - PN: Subj Interval history: He is awake. He does not answer questions. Exam (PN)-Nephrology - Vital Signs Vital signs: Period Temp Pulse Resp BP Sys/Crespo Pulse Ox Last 24 Hr 98.6 F-100.6 F 80-115 16-25 116-195/53-88 92-99 Exam: Gen.: Awake but does not answer questions ENT: Pupils equal round reactive to light. Neck: Supple. No JVD or bruit. Cardiovascular: Regular rate and rhythm. No murmur rub or gallop Lungs: Clear Abdomen: Soft. Nontender. Positive bowel sounds. No organomegaly Extremities: No edema - Lab 08/08/16 04:39 08/09/16 04:01 Most recent lab results Calcium 8.1 MG/DL (8.5-10.1) L 08/08/16 04:39 Phosphorus 4.0 MG/DL (2.5-4.9) 08/08/16 04:39 Magnesium 2.6 MG/DL (1.8-2.4) H 08/08/16 04:39 Assessment and Plan (1) Chronic kidney disease, stage III (moderate) Status: Acute Assessment and plan: 61-year-old man with: * CRF stage III. Renal function slightly improved * Renal mass. Followed by urology * Anemia * Cerebrovascular disease * Diabetes mellitus Current Visit: Yes (2) Anemia Status: Acute Current Visit: Yes (3) Diabetes mellitus Status: Acute Current Visit: Yes (4) History of multiple strokes Status: Acute Current Visit: Yes (5) Hypertension Status: Acute Current Visit: Yes
--- NOTE | 2016-08-09 17:09 | Hospitalist Progress Note ---
Hospitalist: Subjective Interval history: No fever. Blood pressure is better controlled. Patient is talking more today. Tolerating tube feeds. No bowel movement since admission. Exam - Constitutional Vitals: Period Temp Pulse Resp BP Sys/Crespo Pulse Ox Last 24 Hr 98.6 F-100.6 F 80-114 16-25 116-195/53-88 91-99 Exam: GEN: Awake, alert, saying a few words, chronically ill appearing HEENT: No epistaxis noted, slightly dry mucous membranes NECK: Supple, no JVD, no LAD CV: RRR no M LUNGS: Mostly clear to auscultation bilaterally, better aeration, nonlabored breathing noted ABDOMEN: Soft, NT, ND, hypoactive bowel sounds. + PEG in place EXTREMITIES: Warm, trace bilateral upper extremity edema, +atrophy limbs NEURO: Atrophy of the left arm/contracture. Hemiplegia Results - Labs CBC & BMP: 08/08/16 04:39 08/09/16 04:01 - Impressions (1) Suspected acute aspiration pneumonia Status: Acute Current Visit: Yes - Cont Merrem for more anaerobic and gram negative coverage. Cont Azithromycin for atypical organisms, but may be able to dc this soon. - Sputum culture if available. F/U Blood cultures. - Aspiration precautions -Continue bronchodilators, oxygen as needed, pulmonary toileting (2) Acute pansinusitis with epistaxis Status: Acute Current Visit: Yes - Noted on head CT. - IV antibiotics. Would likely to do decongestants (nasal saline) but I do not think pt would be able to cooperate to do it. - Hold ASA (3) History of multiple strokes with aphasia and dysphagia s/p PEG Status: Acute Current Visit: Yes - Hold ASA due to nose bleeds. Cont statin - Nutrition to resume tubefeeds and free water replacement (4) Essential Hypertension Status: Acute Current Visit: Yes - controlled. Hold Diovan due to elevated K and Creatinine for now. Cont other meds and monitor vitals. 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 Pt has been started on iron supplementation. - Anemia panel reviewed - Hold blood thinners. (7) History of DM2 - holding metformin due to elevated creatinine. Accuchecks q6h. I.S.S. (8) Bedbound patient Status: chronic (9) Acute renal failure on chronic kidney disease suspect stage 3- improving. - Gentle hydration. Avoid nephrotoxic agents. Renally dose meds. Hold Diovan for now (10) Upper extremity edema - UE dopplers are negative (11) AAA - BP control. Family has declined surgery for this in the past (12) renal mass suggestive of cancer - Urology consulted and recs reviewed. SCDs for DVT prophylaxis D/W nurse and family and all questions answered. I will be away several days. One of my associates will follow in my absence. Quality Measures - Stroke Onset of Symptoms Date: 08/03/16
[2016-08-09] MEDS: ASPIRIN EC 81 MG TABLET PO SCH (21:51)
[2016-08-09] MEDS: SIMVASTATIN 20 MG TABLET PO SCH (21:51)
[2016-08-09] MEDS: AZITHROMYCIN 250 MG TABLET PO SCH (21:53)
[2016-08-10] MEDS: MEROPENEM 1,000 MG in SODIUM CHLORIDE 0.9% 100 ML IV SCH ×2 (02:47→14:03)
[2016-08-10] MEDS: ALBUTEROL/IPRATROPIUM 3 ML NEB RESP TX SCH ×4 (07:14→20:08)
[2016-08-10] MEDS: FINASTERIDE 5 MG TABLET PO SCH (09:56)
[2016-08-10] MEDS: PREGABALIN 75 MG CAPSULE PO SCH ×2 (09:56→21:26)
[2016-08-10] MEDS: FERROUS SULFATE 325 MG TABLET PO SCH ×2 (09:56→21:25)
[2016-08-10] MEDS: METOPROLOL TARTRATE 50 MG TABLET PO SCH ×3 (09:56→21:27)
[2016-08-10] MEDS: TAMSULOSIN 0.4 MG CAPSULE PO SCH (09:56)
[2016-08-10] MEDS: ISOSORBIDE MONONITRATE 30 MG TABLET PO SCH (09:56)
[2016-08-10] MEDS: PANTOPRAZOLE 40 MG TABLET PO SCH (09:56)
[2016-08-10] MEDS: SERTRALINE 25 MG TABLET PO SCH (09:56)
[2016-08-10] MEDS: INSULIN REGULAR 100 UNIT/ML SUBCUT SCH ×4 (09:57→21:25)
[2016-08-10] MEDS: DESITIN 4OZ/NYSTATIN 15 GRAM MIXTURE PASTE TOP SCH ×2 (09:57→21:27)
--- NOTE | 2016-08-10 10:39 | Urology Progress Note ---
Urology - PN: Subj Interval history: I had a long talk with the patient's sister who has healthcare power of contracts attorney. I told her the patient has an 80% chance that a solid mass in the kidney is malignant and we discussed treatment options including radical nephrectomy partial nephrectomy and cryoablation. She is adamant that because of his condition she does not want any therapy and I agree with that decision. I am going recommend that we do a CT scan of the abdomen and pelvis without contrast to get an idea of the size and location of the mass if there is any evidence of metastatic disease and this will be a baseline study in case the patient later has hematuria. Exam - Constitutional Vitals: Period Temp Pulse Resp BP Sys/Crespo Pulse Ox Last 24 Hr 97.7 F-101.1 F 80-116 15-20 116-191/53-90 91-100 Results - Labs CBC & BMP: 08/08/16 04:39 08/09/16 04:01
[2016-08-10] MEDS: POLYETHYLENE GLYCOL POWDER 17 GM PACK PO SCH (12:38)
--- NOTE | 2016-08-10 13:27 | Hospitalist Progress Note ---
Assessment and Plan - Time spent with patient Time spent with patient: Less than 30 minutes (1) Anemia Status: Acute Assessment and plan: (1) Suspected acute aspiration pneumonia Status: Acute Current Visit: Yes - Cont Merrem for more anaerobic and gram negative coverage. Cont Azithromycin for atypical organisms, but may be able to dc this soon. - Sputum culture if available. F/U Blood cultures. - Aspiration precautions -Continue bronchodilators, oxygen as needed, pulmonary toileting (2) Acute pansinusitis with epistaxis Status: Acute Current Visit: Yes - Noted on head CT. - IV antibiotics. Would likely to do decongestants (nasal saline) but I do not think pt would be able to cooperate to do it. - Hold ASA (3) History of multiple strokes with aphasia and dysphagia s/p PEG Status: Acute Current Visit: Yes - Hold ASA due to nose bleeds. Cont statin - Nutrition to resume tubefeeds and free water replacement (4) Essential Hypertension Status: Acute Current Visit: Yes - controlled. Hold Diovan due to elevated K and Creatinine for now. Cont other meds and monitor vitals. 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 Pt has been started on iron supplementation. - Anemia panel reviewed - Hold blood thinners. (7) History of DM2 - holding metformin due to elevated creatinine. Accuchecks q6h. I.S.S. (8) Bedbound patient Status: chronic (9) Acute renal failure on chronic kidney disease suspect stage 3- improving. - Gentle hydration. Avoid nephrotoxic agents. Renally dose meds. Hold Diovan for now (10) Upper extremity edema - UE dopplers are negative (11) AAA - BP control. Family has declined surgery for this in the past (12) renal mass suggestive of cancer - Urology consulted and recs reviewed. SCDs for DVT prophylaxis Current Visit: Yes (2) Pneumonia Status: Acute Current Visit: Yes (3) Bedbound patient Status: Acute Current Visit: Yes (4) Chronic kidney disease, stage III (moderate) Status: Acute Current Visit: Yes Hospitalist: Subjective Interval history: pt noted to have some temps again also BP creeping up higher mental status unchanged discussed with sister and she wishes for pt to remain full code Exam - Constitutional Vitals: Period Temp Pulse Resp BP Sys/Crespo Pulse Ox Last 24 Hr 97.7 F-101.1 F 94-116 15-20 129-191/62-90 91-100 General appearance: mild distress, over weight - Head Head exam: Present: normal inspection, normocephalic, atraumatic - Eye Eye exam: Absent: conjunctival injection, nystagmus Pupils: Present: JOVANY. Absent: normal accommodation, constricted - ENT ENT exam: Present: normal exam - Neck Neck exam: Present: normal inspection - Respiratory Respiratory exam: Present: decreased breath sounds, rhonchi - Cardiovascular Cardiovascular exam: Present: regular rate and rhythm, systolic murmur. Absent : bradycardia, carotid bruit, irregular rhythm, JVD - GI/Abdominal GI/Abdominal exam: Present: normal bowel sounds, soft. Absent: ascites, distended, firm, tenderness, rebound - Extremities Exam Extremities exam: Present: edema - Back Exam Back exam: Present: normal inspection - Neurological Exam Neurological exam: Present: altered - Psychiatric Psychiatric exam: Present: flat affect - Skin Skin exam: Present: normal color, dry Results - Labs CBC & BMP: 08/08/16 04:39 08/09/16 04:01 Lab Results: I have reviewed the past 24 hour labs Quality Measures - Stroke Onset of Symptoms Date: 08/03/16
[2016-08-10] MEDS: SODIUM CHLORIDE 0.9% 1,000 ML IV SCH (14:04)
[2016-08-10] MEDS: hydrALAZINE 25 MG TABLET PO SCH ×2 (14:04→21:27)
[2016-08-10] MEDS: ACETAMINOPHEN 325 MG TABLET PO PRN ×2 (14:04→21:26)
--- NOTE | 2016-08-10 14:18 | Nephrology Progress Note ---
Nephrology - PN: Subj Interval history: Mental status unchanged. He does not answer questions Exam (PN)-Nephrology - Vital Signs Vital signs: Period Temp Pulse Resp BP Sys/Crespo Pulse Ox Last 24 Hr 97.7 F-101.1 F 72-116 15-20 129-191/62-90 91-100 Exam: en.: Awake but does not answer questions ENT: Pupils equal round reactive to light. Neck: Supple. No JVD or bruit. Cardiovascular: Regular rate and rhythm. No murmur rub or gallop Lungs: Clear Abdomen: Soft. Nontender. Positive bowel sounds. No organomegaly Extremities: No edema - Lab 08/08/16 04:39 08/09/16 04:01 Most recent lab results Calcium 8.1 MG/DL (8.5-10.1) L 08/08/16 04:39 Phosphorus 4.0 MG/DL (2.5-4.9) 08/08/16 04:39 Magnesium 2.6 MG/DL (1.8-2.4) H 08/08/16 04:39 Assessment and Plan (1) Chronic kidney disease, stage III (moderate) Status: Acute Assessment and plan: 61-year-old man with: * CRF stage III. No lab today * Renal mass. Followed by urology * Anemia * Cerebrovascular disease * Diabetes mellitus Current Visit: Yes (2) Anemia Status: Acute Current Visit: Yes (3) Diabetes mellitus Status: Acute Current Visit: Yes (4) History of multiple strokes Status: Acute Current Visit: Yes (5) Hypertension Status: Acute Current Visit: Yes
--- NOTE | 2016-08-10 16:02 | XRay Report ---
Portable chest Date: 08/10/2016 Clinical history: Pneumonia Comparison: 08/07/2016 Technique: Portable AP sitting chest Findings: The heart is minimally enlarged. Reduced parenchymal findings in the left mid to lower lung zone and right lung base. Smaller left pleural effusion. Stable mediastinum with degenerative changes. Impression: Improved bilateral pneumonia with smaller left pleural effusion. PROCEDURE INTERPRETED AT [facility] DEPARTMENT OF RADIOLOGY Final Report Signed by: Dr. Danielle Dyer
[2016-08-10] MEDS: METHOCARBAMOL 500 MG TABLET PO PRN (16:35)
[2016-08-10] MEDS: ASPIRIN EC 81 MG TABLET PO SCH (21:25)
[2016-08-10] MEDS: SIMVASTATIN 20 MG TABLET PO SCH (21:25)
[2016-08-10] MEDS: AZITHROMYCIN 250 MG TABLET PO SCH (21:26)
[2016-08-11] MEDS: MEROPENEM 1,000 MG in SODIUM CHLORIDE 0.9% 100 ML IV SCH ×2 (02:18→14:15)
[2016-08-11] MEDS: LABETALOL 100 MG/20 ML VIAL IV PRN (04:18)
[2016-08-11 04:23] LABS: Eosinophils # 1.1 10*3/uL (0.0-0.87); Eosinophils % 16.5 % (0.00-10.9); Hematocrit 20.8 VOL% (42.0-52.0); Immature Granulocytes % 1.4 %; Immature Granulocytes Absolute 0.09 #; Lymphocytes # 0.5 10*3/uL (1.4-4.0); Lymphocytes % 7.5 % (21.2-54.2); Mean Corpuscular HGB Conc 29.8 GM/DL (32-36); Mean Corpuscular Hemoglobin 27 PG (27-34); Mean Corpuscular Volume 89.7 FL (87-102); Mean Platelet Volume 13.1 FL (9.6-12.0); Monocytes # 0.6 10*3/uL (0.11-0.8); Monocytes % 9.1 % (1.7-12.7); NRBC # 0.04 10*3/uL; Neutrophils # 4.2 10*3/uL (1.4-7.4); Neutrophils % 65.5 % (38.7-73.9); Platelet Count 169 T/CUMM (130-400); Red Blood Count 2.32 MC/CUMM (3.8-5.5); Red Cell Distribution Width 18.9 % (9.3-17.3); White Blood Count 6.4 T/CUMM (4-12)
[2016-08-11 04:26] LABS: Hemoglobin 6.2 GM/DL (14.0-18.0)
[2016-08-11 04:48] LABS: Calcium 7.9 MG/DL (8.5-10.1); Magnesium 2.8 MG/DL (1.8-2.4); Osmolality,Calculated 315.4 MOS/KG (273-304); Potassium 4.9 MMOL/L (3.5-5.1)
[2016-08-11 04:57] LABS: Giant Platelets Few; Hypochromasia Slight; Platelet Estimate Normal
[2016-08-11 04:58] LABS: Calcium 8.2 MG/DL (8.5-10.1); Microcytosis 1+; Osmolality,Calculated 315.4 MOS/KG (273-304); Phosphorous 2.8 MG/DL (2.5-4.9); Potassium 4.9 MMOL/L (3.5-5.1)
[2016-08-11 04:59] LABS: Prealbumin 16.4 MG/DL (20-40)
[2016-08-11] MEDS ORDERED: HYDROmorphone 2 MG/1 ML VIAL IV ONE (05:13)
--- NOTE | 2016-08-11 07:44 | Urology Progress Note ---
Urology - PN: Subj Interval history: CT of the abdomen and pelvis scheduled today to evaluate renal mass. This will be done without contrast since I do not anticipate any therapy of the renal tumor Exam - Constitutional Vitals: Period Temp Pulse Resp BP Sys/Crespo Pulse Ox Last 24 Hr 96.6 F-98.6 F 72-121 15-24 133-181/60-74 91-99 Results - Labs CBC & BMP: 08/11/16 03:48 08/11/16 03:48
--- NOTE | 2016-08-11 08:08 | CT Report ---
CT abdomen pelvis Indication: Renal mass Comparison: 07 August 2016 ultrasound Technique: Axial CT imaging of the abdomen and pelvis is performed without contrast. Findings: Small amount of left lower lung airspace disease is present. CT abdomen: The liver spleen pancreas and adrenal glands are normal in size and density. No evidence of focal lesion is demonstrated in these solid organs. Kidneys are normal in size. Poorly defined cystic area is seen on the left kidney upper pole estimated at 1.2 cm. No evidence of hydronephrosis or nephrolithiasis is seen. The bowel caliber is normal and no wall thickening or adjacent inflammatory change is seen. No evidence of free fluid or free air is present. Moderate amount of aorta calcification is present without evidence of aneurysm. CT pelvis: The bowel and bladder appear within normal limits. The pelvic organs show no evidence of abnormality Impression: No definite renal mass seen on noncontrasted CT. Cystic area left kidney 1 cm in size on superior pole. This CT exam was performed using one or more the following dose reduction techniques: Automated exposure control, adjustment of the MA and/or KV according to patient size, or use of iterative reconstruction technique. PROCEDURE INTERPRETED AT [facility] DEPARTMENT OF RADIOLOGY Final Report Signed by: Dr. Calixto Cedeno
[2016-08-11] MEDS: SODIUM CHLORIDE 0.9% 1,000 ML IV SCH ×2 (08:13→09:04)
[2016-08-11] MEDS: ACETAMINOPHEN 325 MG TABLET PO PRN (08:57)
[2016-08-11] MEDS: DESITIN 4OZ/NYSTATIN 15 GRAM MIXTURE PASTE TOP SCH ×2 (08:58→22:11)
[2016-08-11] MEDS: POLYETHYLENE GLYCOL POWDER 17 GM PACK PO SCH (08:58)
[2016-08-11] MEDS: PANTOPRAZOLE 40 MG TABLET PO SCH (08:58)
[2016-08-11] MEDS: SERTRALINE 25 MG TABLET PO SCH (08:58)
[2016-08-11] MEDS: FINASTERIDE 5 MG TABLET PO SCH (08:58)
[2016-08-11] MEDS: FERROUS SULFATE 325 MG TABLET PO SCH ×2 (08:58→22:10)
[2016-08-11] MEDS: TAMSULOSIN 0.4 MG CAPSULE PO SCH (08:58)
[2016-08-11] MEDS: hydrALAZINE 25 MG TABLET PO SCH ×3 (08:58→22:06)
[2016-08-11] MEDS: ALBUTEROL/IPRATROPIUM 3 ML NEB RESP TX SCH ×4 (09:02→21:46)
[2016-08-11] MEDS: INSULIN REGULAR 100 UNIT/ML SUBCUT SCH ×4 (09:04→22:05)
[2016-08-11] MEDS: PREGABALIN 75 MG CAPSULE PO SCH ×2 (09:04→22:06)
[2016-08-11] MEDS: METOPROLOL TARTRATE 50 MG TABLET PO SCH ×3 (09:04→22:07)
[2016-08-11] MEDS: ISOSORBIDE MONONITRATE 30 MG TABLET PO SCH (09:05)
--- NOTE | 2016-08-11 11:13 | Hospitalist Progress Note ---
Assessment and Plan (1) Pneumonia Status: Acute Assessment and plan: Impression: 1. Aspiration pneumonia 2. Multiple strokes 3. Possible mass, left kidney Plan: Await urology opinion regarding the renal mass. Continue current care otherwise. He may be about ready for discharge if no further urologic workup is necessary. This note was completed using [employer] voice recognition software. There may be miller head assistant wet process errors as a result. Current Visit: Yes Qualifiers: Pneumonia type: aspiration pneumonia Aspiration pneumonia type: due to gastric secretions Laterality: unspecified laterality Lung location: unspecified part of lung Qualified Code(s): J69.0 - Pneumonitis due to inhalation of food and vomit Hospitalist: Subjective Interval history: Follow-up aspiration pneumonia, multiple cerebral infarctions, and possible renal mass. The patient appears to be unchanged clinically. The is concerned about the mass in the left kidney. CT scan is more consistent with a cystic structure than a solid structure. She understands that he is not a surgical candidate. She reports no other complaints at this time, except for some pain. Exam - Constitutional Vitals: Period Temp Pulse Resp BP Sys/Crespo Pulse Ox Last 24 Hr 96.6 F-100.5 F 72-121 16-24 133-181/60-74 90-98 Heart is regular with distant tones and no murmur or gallop. Lungs are clear with no rales or wheezes. PEG site looks clean. Abdomen is protuberant. Results - Labs CBC & BMP: 08/11/16 03:48 08/11/16 03:48 Lab Results: I have reviewed the past 24 hour labs (Hemoglobin is stable. He is a [employer], and has declined transfusion.) Quality Measures - Stroke Onset of Symptoms Date: 08/03/16
--- NOTE | 2016-08-11 14:12 | Nephrology Progress Note ---
Nephrology - PN: Subj Interval history: The patient is resting. Had a CT of the abdomen and pelvis that did not show a definite renal mass did show a cystic area in the left kidney 1 cm in size. Patient's hematocrit has been 20.8 at this particular time. Low-grade temperature reported at 100.4 today. Family members at the bedside. Exam (PN)-Nephrology - Vital Signs Vital signs: Period Temp Pulse Resp BP Sys/Crespo Pulse Ox Last 24 Hr 96.6 F-100.5 F 78-121 16-24 130-181/58-74 90-98 - General Appearance General appearance: fatigue, frail EENT: ATNC Neck: supple Respiratory: clear Cardiology: no edema, regular rate, regular rhythm Gastrointestinal: normoactive bowel sounds, no tenderness Integumentary: no rash Musculoskeletal: no clubbing - Lab 08/11/16 03:48 08/11/16 03:48 Most recent lab results Calcium 8.2 MG/DL (8.5-10.1) L 08/11/16 03:48 Phosphorus 2.8 MG/DL (2.5-4.9) 08/11/16 03:48 Magnesium 3.0 MG/DL (1.8-2.4) H 08/11/16 03:48 Assessment and Plan (1) Renal cyst Status: Chronic Assessment and plan: CT scan done today which shows evidence of a renal cyst. More likely this situation is more chronic in nature. Current Visit: Yes (2) Anemia Status: Chronic Assessment and plan: Patient does not receive blood products due to jain beliefs. Will do Epogen products 10,000 units subcu Thursday. Current Visit: Yes (3) Pneumonia Status: Acute Current Visit: Yes Qualifiers: Pneumonia type: aspiration pneumonia Aspiration pneumonia type: due to gastric secretions Laterality: unspecified laterality Lung location: unspecified part of lung Qualified Code(s): J69.0 - Pneumonitis due to inhalation of food and vomit (4) Bedbound patient Status: Chronic Current Visit: Yes (5) History of multiple strokes Status: Chronic Current Visit: Yes (6) Hypertension Status: Chronic Current Visit: Yes Qualifiers: Hypertension type: essential hypertension Qualified Code(s): I10 - Essential (primary) hypertension (7) Neuropathy Status: Acute Current Visit: Yes (8) Dementia Status: Acute Current Visit: Yes (9) Diabetes mellitus Status: Chronic Current Visit: Yes Qualifiers: Diabetes mellitus type: type 2 Diabetes mellitus complication detail: with other kidney complication (10) Chronic kidney disease, stage III (moderate) Status: Chronic Current Visit: Yes
[2016-08-11] MEDS: METHOCARBAMOL 500 MG TABLET PO PRN (15:41)
[2016-08-11] MEDS ORDERED: LACTULOSE 20 GM/30 ML UDCUP PER TUBE PRN (17:48)
[2016-08-11] MEDS ORDERED: EPOETIN ALFA 10,000 UNIT/1 ML VIAL SUBCUT SCH (21:00)
[2016-08-11] MEDS: AZITHROMYCIN 250 MG TABLET PO SCH (22:07)
[2016-08-11] MEDS: SIMVASTATIN 20 MG TABLET PO SCH (22:07)
[2016-08-11] MEDS: ASPIRIN EC 81 MG TABLET PO SCH (22:07)
[2016-08-12] MEDS: MEROPENEM 1,000 MG in SODIUM CHLORIDE 0.9% 100 ML IV SCH ×2 (03:13→14:04)
[2016-08-12 05:17] LABS: Calcium 7.8 MG/DL (8.5-10.1); Osmolality,Calculated 312.4 MOS/KG (273-304)
[2016-08-12] MEDS: ALBUTEROL/IPRATROPIUM 3 ML NEB RESP TX SCH ×2 (07:11→10:46)
[2016-08-12] MEDS: SODIUM CHLORIDE 0.9% 1,000 ML IV SCH (07:37)
--- NOTE | 2016-08-12 07:44 | Urology Progress Note ---
Urology - PN: Subj Interval history: No renal mass seen on CT scan. I will see the patient again as needed Exam - Constitutional Vitals: Period Temp Pulse Resp BP Sys/Crespo Pulse Ox Last 24 Hr 96.6 F-100.5 F 84-118 17-22 127-167/57-77 90-100 Results - Labs CBC & BMP: 08/11/16 03:48 08/12/16 04:16
--- NOTE | 2016-08-12 08:12 | Discharge Summary ---
Hospital Course - Hospital Course Hospital Course: Discharge diagnosis Aspiration pneumonia Multiple cerebral infarctions with paraplegia Chronic kidney disease Chronic anemia Renal cyst The patient presented with fever and cough. He was felt to have aspirated. He is fed through a PEG tube, and has some difficulty handling oral secretions. He was treated appropriately with IV antibiotics. He was found to have a possible mass or cyst on the left kidney. CT scan was consistent with a renal cyst. He defervesced. He tolerated PEG feedings and medications. At this time , the is ready to take him back home. We will resume home health. She wondered about home oxygen. We will check oxygen saturation prior to discharge , and order if appropriate. This note was completed using [employer] voice recognition software. There may be hand collator errors as a result. - Time spent with patient Time with patient DS: Less than 30 minutes Diagnosis - Discharge Diagnosis (1) Pneumonia Status: Acute Discharge Plan - Discharge Data Disposition: Home Health Service Condition at Discharge: Stable Discharge Diet: other (resume tube feedings) Activity: resume usual activities as tolerated Hygiene: no restrictions Weight Bearing at Discharge: weight bear as tolerated - Discharge Medications New Hydrocodone/Acetaminophen [Hydrocodon-Acetamin 7.5-325/15] 0 ml PO Q8HR #120 mls Continue Sertraline [Zoloft] 25 mg PO DAILY Pregabalin [Lyrica] 225 mg PO 1000,2200 Metoprolol Tartrate 50 mg PO 1000,1600,2200 Methocarbamol 1,000 mg PO BID PRN PRN Reason: Pain Tamsulosin [Flomax] 0.4 mg PO DAILY Finasteride 5 mg PO DAILY cloNIDine TAB [Catapres Tab] 0.1 mg PO Q4H Aspirin EC Tab 81 mg PO QPM Valsartan 80 mg PO 0600,1000,1600,2200 Simvastatin 20 mg PO BEDTIME Omeprazole 40 mg PO DAILY Isosorbide Mononitrate [Imdur] 30 mg PO DAILY Ferrous Sulfate 325 mg PO BID Discontinued metFORMIN [Glucophage] 500 mg PO BID W/MEALS hydrALAZINE TAB [Apresoline Tab] 75 mg PO 1000,1600 hydrALAZINE TAB [Apresoline Tab] 25 mg PO 1300 hydrALAZINE TAB [Apresoline Tab] 50 mg PO 0600 - Follow Up or Referral - Forms/Instructions Exam - Constitutional Vitals: Period Temp Pulse Resp BP Sys/Crespo Pulse Ox Last 24 Hr 96.6 F-100.5 F 84-118 17-22 127-166/57-77 90-100 Heart is regular with no murmur. He has a few rhonchi in the chest, but the lungs are fairly clear. Discharge Results Procedures and tests throughout hospitalization: Pending Orders 08/10/16 14:00 Sputum Culture and Gram Stain Stat 08/10/16 14:39 Blood Culture Routine 08/14/16 04:00 Basic Metabolic Panel MOTH Magnesium MOTH Phosphorous MOTH Prealbumin MOTH Labs on day of discharge: Labs from last 24 hours 08/12/16 08/12/16 08/12/16 07:44 04:16 03:26 Sodium 147 H Potassium 5.0 Chloride 112 H Carbon Dioxide 28 Anion Gap 12.0 BUN 59 H Creatinine 1.50 H GFR Calculation 55 BUN/Creatinine Ratio 39.00 H Glucose 167 H POC Glucose 194 H 190 H Calculated Osmolality 312.4 H Calcium 7.8 L 08/11/16 08/11/16 08/11/16 19:49 15:38 11:39 Sodium Potassium Chloride Carbon Dioxide Anion Gap BUN Creatinine GFR Calculation BUN/Creatinine Ratio Glucose POC Glucose 236 H 134 H 168 H Calculated Osmolality Calcium Preliminary micro results at discharge 08/10/16 14:39 Blood Culture - Preliminary Blood No growth at 1 day 08/10/16 14:39 Blood Culture - Preliminary Blood No growth at 1 day DS: Provider Date of admission: 08/06/16 20:02 Primary care physician: . No PCP Attending physician on admission: Judy Phipps MD Consults: 08/06/16 21:39 Consult to Dietitian [CONS] Routine Reason for Dietitian: TF-Initiate/Manage 08/07/16 00:00 Consult to Pharmacy [CONS] Routine Reason for Pharmacy Consult: Adjust Meds Renal Funct 08/07/16 13:24 Consult to Pharmacy [CONS] Routine Reason for Pharmacy Consult: Adjust Meds Renal Funct 08/07/16 13:45 Consult to Dietitian [CONS] Routine Reason for Dietitian: TF-Initiate/Manage 08/07/16 14:59 Consult to Physician [CONS] Routine Comment: elevated creatinine and anemia. Please eval and tx Consulting Provider: Consult to Specialist Group: Nephrology When should Consulting Provider be notified: Now 04/14/17 11:37 Consult to Physician [CONS] Routine Comment: renal mass Consulting Provider: Mike Gamboa Consulting Provider Notified: No When should Consulting Provider be notified: Now Consult to Specialist Group: Urology Consult Notification Comment: CP SPOKE WITH DR. GAMBOA ABOUT CONSULT AT 1400 ON 08/08/16 Discharging clinician: Aric Sarah MD Expected date of discharge: 08/12/16
[2016-08-12 08:16] VITALS: BP 141/81
[2016-08-12] MEDS: INSULIN REGULAR 100 UNIT/ML SUBCUT SCH ×2 (09:27→12:28)
[2016-08-12] MEDS: ISOSORBIDE MONONITRATE 30 MG TABLET PO SCH (09:31)
[2016-08-12] MEDS: POLYETHYLENE GLYCOL POWDER 17 GM PACK PO SCH (09:31)
[2016-08-12] MEDS: hydrALAZINE 25 MG TABLET PO SCH (09:31)
[2016-08-12] MEDS: PANTOPRAZOLE 40 MG TABLET PO SCH (09:31)
[2016-08-12] MEDS: METOPROLOL TARTRATE 50 MG TABLET PO SCH (09:31)
[2016-08-12] MEDS: SERTRALINE 25 MG TABLET PO SCH (09:31)
[2016-08-12] MEDS: FERROUS SULFATE 325 MG TABLET PO SCH (09:31)
[2016-08-12] MEDS: TAMSULOSIN 0.4 MG CAPSULE PO SCH (09:31)
[2016-08-12] MEDS: PREGABALIN 75 MG CAPSULE PO SCH (09:31)
[2016-08-12] MEDS: FINASTERIDE 5 MG TABLET PO SCH (09:31)
[2016-08-12] MEDS: DESITIN 4OZ/NYSTATIN 15 GRAM MIXTURE PASTE TOP SCH (09:32)
[2016-08-12] MEDS: ACETAMINOPHEN 325 MG TABLET PO PRN (12:55)
== END 2016-08-12 15:35 | disposition home health service (06) | DRG 137 ==
LOC: N.ED 17:20 → N.EDINP 20:02 → SUATTDRO 20:02 → N.EDINP 22:41 → N.TELES 22:46
PROVIDERS: ADMIT Pediatrics; ATTEND Internal Medicine Geriatric Medicine

== ENCOUNTER 2016-09-05 15:24 | Inpatient (IN) ==
--- NOTE | 2016-09-05 17:10 | Emergency Department Note ---
IManan Brooke, am scribing for, and in the presence of, Tsering Grullon DO 16:56 . IMitchel Debra, DO, personally performed the services described in this documentation, ascribed by Becky Hinkle in my presence, and it is both accurate and complete . Arrival - Arrival ED Nursing Triage Note: pt sent in per home health for worsening lab values. BUN 89, CREAT 2.5, K+ 5.7, NA 134. Pt had low H&H on last visit but declined blood transfusions d/t [employer]. pt did receive epogen. pt is extremely lethargic at triage. Mode of Arrival: Wheelchair Limitations: Altered Mental Status Source: Patient, Family (Sister), RN Notes Reviewed <Tsering Grullon - Last Filed: 09/05/16 18:04> <Frank Keane - Last Filed: 09/05/16 19:44> - Arrival Chief Complaint: Weakness Stated Complaint: low blood count/low kidney function per h/health Time Seen by Provider: 09/05/16 16:27 - History of Present Illness HPI Narrative: Patient is a 61 year old male who was told to come to the ED, by the home health nurse, due to worsening lab values. Patient is a poor historian and his Sister is in the room giving history. The home health nurse obtained some blood samples, yesterday, and called Sister this morning with the Values; BUN- 89, Creatinine- 2.5, Potassium- 5.7, and Sodium 134. Sister says that Patient has had a low H&H but he refuses blood transfusion due to being a [employer]. Sister says Patient will accept blood expanders. Sister says Patient was running a low fever this morning. His temperature during triage was 98.0. Sister says she has not noticed any melena or blood in his stool. Patient was discharged from the hospital on August 12 and Sister says he was given Epogen. Patient has PMHx of aneurysm, HTN, anxiety, depression, cerebral hemorrhage, several CVAs, NIDDM, RA, and prostate problems. (Becky Hinkle) Patient is a 61 year old male who was told to come to the ED, by the home health nurse, due to worsening lab values. Patient is a poor historian and his Sister is in the room giving history. The home health nurse obtained some blood samples, yesterday, and called Sister this morning with the Values; BUN- 89, Creatinine- 2.5, Potassium- 5.7, and Sodium 134. Sister says that Patient has had a low H&H but he refuses blood transfusion due to being a [employer]. Sister says Patient will accept blood expanders. Sister says Patient was running a low fever this morning. His temperature during triage was 98.0. Sister says she has not noticed any melena or blood in his stool. Patient was discharged from the hospital on August 12 and Sister says he was given Epogen. Patient has PMHx of aneurysm, HTN, anxiety, depression, cerebral hemorrhage, several CVAs, NIDDM, RA, and prostate problems. (Tsering Grullon) Allergies/Adverse Reactions: Allergies Allergy/AdvReac Type Severity Reaction Status Date / Time No Known Allergies Allergy Verified 09/05/16 15:45 Home Medications: Home Medications Medication Instructions Recorded Confirmed Type Aspirin EC Tab 81 mg PO QPM 08/06/16 09/05/16 History Ferrous Sulfate 325 mg PO BID 08/06/16 09/05/16 History Finasteride 5 mg PO DAILY 08/06/16 09/05/16 History Isosorbide Mononitrate [Imdur] 30 mg PO DAILY 08/06/16 09/05/16 History Methocarbamol 500 mg PO BID PRN 08/06/16 09/05/16 History Metoprolol Tartrate 50 mg PO TID 08/06/16 09/05/16 History Pregabalin [Lyrica] 225 mg PO BID 08/06/16 09/05/16 History Sertraline [Zoloft] 25 mg PO DAILY 08/06/16 09/05/16 History Tamsulosin [Flomax] 0.4 mg PO DAILY 08/06/16 09/05/16 History Valsartan 80 mg PO QID 08/06/16 09/05/16 History cloNIDine TAB [Catapres Tab] 0.1 mg PO Q4H 08/06/16 09/05/16 History Hydralazine HCl 75 mg PO 5X DAILY 09/05/16 09/05/16 History Pantoprazole Tab [Protonix Tab] 40 mg PO DAILY 09/05/16 09/05/16 History metFORMIN [Glucophage] 500 mg PO TID W/MEALS 09/05/16 09/05/16 History Review of System - Review of System ROS unobtainable: due to mental status - Review of System Constitutional: Present: fever Respiratory: Absent: respiratory distress Skin: Absent: rash <Tsering Grullon - Last Filed: 09/05/16 18:04> <Frank Keane - Last Filed: 09/05/16 19:44> - Review of System Review of Systems: worsening lab values (Becky Hinkle) worsening lab values (Tsering Grullon) Medical,Surgical,& Family Hx - Medical History Cardio: History of: Aneurysm, Hypertension Psychological: History of: Anxiety Disorders, Depression Neurology: History of: Cerebral Hemorrhage, Cerebrovascular Accident Endocrine: History of: Diabetes Mellitus (NIDDM) Rheumatology: History of;: Rheumatoid Arthritis Genitourinary: History of: Prostate Problems - Surgical History Neurologic Surgeries: Surgical HX of: Cerebral Hemorrhage - Family History Family History: Reports;: Family Diabetes, Family Heart Disease, Family Hypertension - Social History Smoking Status: Never smoker Frequency of Alcohol Use: None Type of Drug Use: None <Tsering Grullon - Last Filed: 09/05/16 18:04> Exam - General General appearance: in no apparent distress, lethargic - Head Head exam: Present: atraumatic, normocephalic - Eye Eye exam: Present: PERRL, EOMI, other (scleral pale) - ENT ENT exam: Present: mucous membranes dry, other (Pale mucous membranes) - Neck Neck exam: Present: normal inspection - Chest Chest inspection: Present: normal inspection - Respiratory Respiratory exam: Present: normal lung sounds bilaterally, accessory muscle use - Cardiovascular Cardiovascular exam: Present: regular rate, normal rhythm, normal heart sounds - Abdominal Exam Abdominal exam: Present: distention, other (PEG Tube). Absent: soft, tenderness - Extremities Exam Extremities exam: Present: other (four toes missing on left foot and three toes missing on right foot. ) - Back Exam Back exam: Present: normal inspection - Skin Skin exam: Present: warm, dry, intact, pallor, other (Several lesions on right forearm and bilateral feet. Homemade bandages on the toes.) <Tsering Grullon - Last Filed: 09/05/16 18:04> Vital Signs: Vital Signs Temperature 98.0 F 09/05/16 15:36 Pulse Rate 76 09/05/16 15:36 Respiratory Rate 16 09/05/16 15:36 Blood Pressure 165/67 09/05/16 15:36 O2 Sat by Pulse Oximetry 100 09/05/16 15:36 Course <Tsering Grullon - Last Filed: 09/05/16 18:04> <Frank Keane - Last Filed: 09/05/16 19:44> Course Narrative: Pt signed out to me at shift change and with lab abnormalities consistent with Dr. Grullon's report. Admit to Hospitalist service. (Frank Keane) Results - Diagnostic Findings Procedure: Chest x-ray: report reviewed by me (Bilateral pulmonary densities, may represent pneumonia.) <Tsering Grullon - Last Filed: 09/05/16 18:04> - Labs CBC & BMP: 09/05/16 18:12 09/05/16 18:12 Lab Results: I have reviewed the patients labs <Frank Keane - Last Filed: 09/05/16 19:44> Disposition <Tsering Grullon - Last Filed: 09/05/16 18:04> Case discussed with: patient, patient's family <Frank Keane - Last Filed: 09/05/16 19:44> Clinical Impression: Anemia, Hyperkalemia Disposition: Still a Patient
--- NOTE | 2016-09-05 17:16 | XRay Report ---
XR chest 1V portable Indication: Shortness of breath Comparison: 10 August 2016 Findings: The heart and mediastinum are normal in size and configuration. The pulmonary vascularity is normal in caliber. There is patchy right lung and left lower lung increased density. No other pulmonary infiltrates, effusions, pneumothorax or other abnormality is demonstrated. Impression: Bilateral pulmonary densities, may represent pneumonia. PROCEDURE INTERPRETED AT [facility] DEPARTMENT OF RADIOLOGY Final Report Signed by: Dr. Calixto Cedeno
[2016-09-05 18:22] LABS: Basophils % 0.1 % (0.0-0.8); Eosinophils # 1.8 10*3/uL (0.0-0.87); Eosinophils % 19.4 % (0.00-10.9); Hematocrit 20.7 VOL% (42.0-52.0); Immature Granulocytes % 0.4 %; Immature Granulocytes Absolute 0.04 #; Lymphocytes # 0.7 10*3/uL (1.4-4.0); Lymphocytes % 7.6 % (21.2-54.2); Mean Corpuscular HGB Conc 30.9 GM/DL (32-36); Mean Corpuscular Hemoglobin 27 PG (27-34); Mean Corpuscular Volume 86.3 FL (87-102); Mean Platelet Volume 14.4 FL (9.6-12.0); Monocytes # 0.8 10*3/uL (0.11-0.8); Neutrophils % 64.5 % (38.7-73.9); Platelet Count 136 T/CUMM (130-400); Red Cell Distribution Width 19.1 % (9.3-17.3); White Blood Count 9.3 T/CUMM (4-12)
[2016-09-05 18:25] LABS: Hemoglobin 6.4 GM/DL (14.0-18.0)
[2016-09-05 18:32] LABS: PT Patient Result 10.3 SECS; Partial Thromboplastin Time 32.7 SECS (0-40)
[2016-09-05 18:40] LABS: Albumin 3.2 G/DL (3.4-5.0); Bilirubin,Total 0.7 MG/DL (0.2-1.0); Potassium 5.6 MMOL/L (3.5-5.1); Total Protein 7.2 G/DL (6.4-8.3)
[2016-09-05 18:42] LABS: Troponin I Only < 0.015 NG/ML (0.00-0.045)
--- NOTE | 2016-09-05 19:10 | Hospitalist History & Physical ---
Assessment and Plan (1) Acute on chronic renal failure Status: Acute Assessment and plan: Patient has a history of renal cyst. will start IVF, avoid nephrotoxics BMP in am renal USS Current Visit: Yes (2) Hyperkalemia Status: Acute Assessment and plan: of 5.6, most likely due to RF -will give kayexalate, repeat level Current Visit: Yes (3) Anemia Status: Chronic Assessment and plan: of chronic disease.Patient is a [employer]. Will not allow blood transfusion, open to expanders. Will get Fe studies start Fe replacement -will require Epogen -will consult Hem/Onc for assistance -will use SCDs for DVT prophylaxis Current Visit: No (4) Hypertension Status: Chronic Assessment and plan: will resume home meds Current Visit: No Qualifiers: Hypertension type: essential hypertension Qualified Code(s): I10 - Essential (primary) hypertension (5) Diabetes mellitus Status: Chronic Assessment and plan: will place on SSC insulin, hold metformin due to RF. Get HbA1c level Current Visit: No Qualifiers: Diabetes mellitus type: type 2 Diabetes mellitus complication detail: with other kidney complication (6) History of multiple strokes Status: Chronic Assessment and plan: resulting in right hemiplegia and dysarthria, bed bound -Good Nursing care Current Visit: No (7) Dementia Status: Acute Assessment and plan: most likely resulting from multiple strokes Current Visit: No (8) BPH (benign prostatic hyperplasia) Status: Acute Assessment and plan: resume meds Current Visit: Yes (9) Leg ulcer Status: Acute Assessment and plan: will consult wound care Current Visit: Yes (10) History of abdominal aortic aneurysm Status: Acute Assessment and plan: stable Current Visit: Yes History of Present Illness Chief complaint: abnormal labs History of present illness: Mr. Kim is a 61 year old male with a history of multiple strokes s/p right hemiplegia, dysarthria, anuerysm,chronic anemia, multiple leg ulcers, who is currently bed bound. He was admitted to hospital last month with Aspiration pneumonia, anemia and was dcd on Epogen for an Hb of 6.2 because patient refused blood transfusion being a Islam. Home health took some blood for lab work a couple of days ago.Today, his sister was asked to bring him to the hospital for abnormal labs. Upon arrival his BUN/Cr were 89/2.9 respectively from previous 59/1.5. H/H were 6.4/20.7. Potassium was 5.6. Patient was a poor historian, so his sister gave the history. There was no associated nausea, vomiting, hematemesis and melena stools. No bleeding from any orifices. Apart from patient having a low grade Fever this am and weakness, there was no rigor, chills.No dysuria, cough, chest pain or chest tightness. Patient still insist on no blood transfusion but will accept blood expanders. Home Medications Medication Instructions Recorded Confirmed Type Aspirin EC Tab 81 mg PO QPM 08/06/16 09/05/16 History Ferrous Sulfate 325 mg PO BID 08/06/16 09/05/16 History Finasteride 5 mg PO DAILY 08/06/16 09/05/16 History Isosorbide Mononitrate [Imdur] 30 mg PO DAILY 08/06/16 09/05/16 History Methocarbamol 500 mg PO BID PRN 08/06/16 09/05/16 History Metoprolol Tartrate 50 mg PO TID 08/06/16 09/05/16 History Pregabalin [Lyrica] 225 mg PO BID 08/06/16 09/05/16 History Sertraline [Zoloft] 25 mg PO DAILY 08/06/16 09/05/16 History Tamsulosin [Flomax] 0.4 mg PO DAILY 08/06/16 09/05/16 History Valsartan 80 mg PO QID 08/06/16 09/05/16 History cloNIDine TAB [Catapres Tab] 0.1 mg PO Q4H 08/06/16 09/05/16 History Hydralazine HCl 75 mg PO 5X DAILY 09/05/16 09/05/16 History Pantoprazole Tab [Protonix Tab] 40 mg PO DAILY 09/05/16 09/05/16 History metFORMIN [Glucophage] 500 mg PO TID W/MEALS 09/05/16 09/05/16 History Allergies Allergy/AdvReac Type Severity Reaction Status Date / Time No Known Allergies Allergy Verified 09/05/16 15:45 Medical,Surgical,& Family Hx - Medical History Cardio: History of: Aneurysm, Hypertension Psychological: History of: Anxiety Disorders, Depression Neurology: History of: Cerebral Hemorrhage, Cerebrovascular Accident Endocrine: History of: Diabetes Mellitus (NIDDM) Rheumatology: History of;: Rheumatoid Arthritis Genitourinary: History of: Prostate Problems - Surgical History Neurologic Surgeries: Surgical HX of: Cerebral Hemorrhage - Family History Family History: Reports;: Family Diabetes, Family Heart Disease, Family Hypertension - Social History Smoking Status: Never smoker Frequency of Alcohol Use: None Type of Drug Use: None Exam - Constitutional Vitals: Period Temp Pulse Resp BP Sys/Crespo Pulse Ox Last 24 Hr 98.0 F 76 16 165/67 100 General appearance: no acute distress, other (chronically ill-looking) - Respiratory Respiratory exam: Present: clear to auscultation bilaterally - Cardiovascular Cardiovascular exam: Present: regular rate and rhythm - GI/Abdominal GI/Abdominal exam: Present: normal bowel sounds - Extremities Exam Extremities exam: Present: other (multiple toe amputations and ulcers bandaged) - Neurological Exam Neurological exam: Present: alert Results - Labs CBC & BMP: 09/05/16 18:12 09/05/16 18:12 Lab Results: I have reviewed the past 24 hour labs
[2016-09-05 19:35] LABS: Band Neutrophils 2 % (0-10); Eosinophils 18 % (0-10); Lymphocytes 11 % (20-55); Segmented Neutrophils 64 % (50-85); Total Cells Counted 100
[2016-09-05 19:36] LABS: Anisocytosis 1+; Hypochromasia Slight; Platelet Estimate Normal; Poikilocytosis 1+; Tear Drop Cells Few
[2016-09-05] MEDS ORDERED: GLUCAGON 1 MG VIAL IM PRN ×2 (20:55)
[2016-09-05] MEDS ORDERED: DEXTROSE 50% 25 GM/50 ML VIAL IV PRN ×2 (20:55)
[2016-09-05] MEDS ORDERED: SODIUM POLYSTYRENE SULFATE 15 GM/60 ML BOTTLE PO STA (20:55)
[2016-09-05] MEDS ORDERED: METHOCARBAMOL 500 MG TABLET PO PRN (20:55)
[2016-09-05] MEDS: SODIUM CHLORIDE 0.45% 1,000 ML IV SCH (21:46)
[2016-09-05] MEDS: INSULIN REGULAR 100 UNIT/ML SUBCUT SCH (21:51)
[2016-09-05] MEDS: METOPROLOL TARTRATE 50 MG TABLET PO SCH (22:04)
[2016-09-05] MEDS: FERROUS SULFATE 325 MG TABLET PO SCH (22:04)
[2016-09-05] MEDS: PREGABALIN 75 MG CAPSULE PO SCH (22:04)
[2016-09-05] MEDS: cloNIDine 0.1 MG TABLET PO SCH (22:05)
[2016-09-06] MEDS: hydrALAZINE 20 MG/1 ML VIAL IV PRN ×2 (01:00→12:18)
[2016-09-06] MEDS ORDERED: LEVOFLOXACIN INJ 500 MG in PREMIX 1 EACH IV ONE (01:00)
[2016-09-06 01:45] LABS: Troponin I Only < 0.015 NG/ML (0.00-0.045)
--- NOTE | 2016-09-06 02:43 | Event Note ---
Patient complaint of chest pain overnight. Patient repeat cardiac enzyme that was unremarkable. Vital signs reviewed and patient elevated blood pressure so as needed antihypertensives started. Levaquin was also added due to patient having possible pneumonia on chest x-ray.
[2016-09-06] MEDS: cloNIDine 0.1 MG TABLET PO SCH ×5 (06:32→21:01)
[2016-09-06 07:43] LABS: Bilirubin,Total 0.9 MG/DL (0.2-1.0); Calcium 8.6 MG/DL (8.5-10.1); Osmolality,Calculated 298.7 MOS/KG (273-304); Potassium 4.9 MMOL/L (3.5-5.1)
[2016-09-06 07:45] LABS: Troponin I Only < 0.015 NG/ML (0.00-0.045)
[2016-09-06] MEDS: FERROUS SULFATE 325 MG TABLET PO SCH ×2 (08:36→21:01)
[2016-09-06] MEDS: METOPROLOL TARTRATE 50 MG TABLET PO SCH ×3 (08:36→21:01)
[2016-09-06] MEDS: FINASTERIDE 5 MG TABLET PO SCH (08:36)
[2016-09-06] MEDS: SERTRALINE 25 MG TABLET PO SCH (08:36)
[2016-09-06] MEDS: TAMSULOSIN 0.4 MG CAPSULE PO SCH ×2 (08:36→08:46)
[2016-09-06] MEDS: PREGABALIN 75 MG CAPSULE PO SCH (08:36)
[2016-09-06 08:37] LABS: Basophils % 0.1 % (0.0-0.8); Eosinophils # 0.7 10*3/uL (0.0-0.87); Eosinophils % 8.5 % (0.00-10.9); Hematocrit 20.2 VOL% (42.0-52.0); Immature Granulocytes % 0.6 %; Immature Granulocytes Absolute 0.05 #; Lymphocytes # 0.6 10*3/uL (1.4-4.0); Lymphocytes % 7.2 % (21.2-54.2); Mean Corpuscular HGB Conc 30.7 GM/DL (32-36); Mean Corpuscular Hemoglobin 27 PG (27-34); Mean Corpuscular Volume 86.3 FL (87-102); Mean Platelet Volume 13.8 FL (9.6-12.0); Monocytes # 0.6 10*3/uL (0.11-0.8); Neutrophils # 6.3 10*3/uL (1.4-7.4); Neutrophils % 76.6 % (38.7-73.9); Platelet Count 144 T/CUMM (130-400); Red Blood Count 2.34 MC/CUMM (3.8-5.5); Red Cell Distribution Width 19.1 % (9.3-17.3); White Blood Count 8.3 T/CUMM (4-12)
[2016-09-06] MEDS: PANTOPRAZOLE 40 MG TABLET PO SCH (08:37)
[2016-09-06 08:39] LABS: Hemoglobin 6.2 GM/DL (14.0-18.0)
[2016-09-06] MEDS: INSULIN REGULAR 100 UNIT/ML SUBCUT SCH ×4 (08:49→21:37)
[2016-09-06] MEDS ORDERED: ISOSORBIDE MONONITRATE 30 MG TABLET PO SCH (09:00)
--- NOTE | 2016-09-06 09:43 | Ultrasound Report ---
Renal ultrasound Indication: Renal failure Comparison: None available Findings: Kidneys are normal in size. There is a cyst in the lower pole left kidney 1.5 x 1.4 x 1.4 cm. Remaining echogenicity appears within normal limits. No hydronephrosis or nephrolithiasis is seen. The right renal length is 9.8 cm. The left renal length is 11.5 cm. No free fluid or other abnormality is seen. Impression: Simple appearing cyst lower pole left kidney. No other evidence of abnormality demonstrated. Ultrasound images stored and captured. PROCEDURE INTERPRETED AT [facility] DEPARTMENT OF RADIOLOGY Final Report Signed by: Dr. Calixto Cedeno
[2016-09-06] MEDS ORDERED: PIPERACILLIN/TAZOBACTAM 3,375 MG in SODIUM CHLORIDE 0.9% 100 ML IV SCH (11:00)
[2016-09-06 11:24] LABS: ABG Base Excess 0.9 MMOL/L (-2.5-2.5); ABG HCO3 25.1 MMOL/L (20-26); ABG Oxygen Saturation 86.3 % (95-100); ABG PH 7.365 (7.35-7.45); ABG PO2 55.2 MM HG (80-95); ABG TCO2 25.4 MMOL/L (23-27)
--- NOTE | 2016-09-06 11:40 | CT Report ---
CT brain Indication: Decreased level of consciousness Comparison: 06 August 2016 Technique: Axial CT imaging of the brain is performed without contrast with 3 mm increments. Findings: No evidence of hemorrhage, mass mass effect midline shift or acute infarct seen. There is severe diffuse cerebral and cerebellar atrophy. There are extensive areas of decreased density seen within the white and gracia matter similar to previous exam. Otherwise the brain parenchyma attenuation and differentiation appears within normal limits. The ventricles and cisterns are appropriate in caliber. No cranial or skull base abnormality is identified. Impression: No evidence of acute process or interval change. This CT exam was performed using one or more the following dose reduction techniques: Automated exposure control, adjustment of the MA and/or KV according to patient size, or use of iterative reconstruction technique. PROCEDURE INTERPRETED AT [facility] DEPARTMENT OF RADIOLOGY Final Report Signed by: Dr. Calixto Cedeno
--- NOTE | 2016-09-06 12:02 | Oncology Consult Note ---
Assessment and Plan (1) Anemia Status: Acute Assessment and plan: normocytic - prior documented levels in system Hbs of ~6-7 - likely multi-factorial from anemia of chronic disease, CKD, medications - no known bleeding and level stable over last month - patient is [employer] and strongly disagrees with transfusion per whom is primary critical care unit manager - advised on discharge epogen 10,000 u M/W/F but did not know to administer per her - will restart epogein at 10,000 u M/W/F - agree with iron supplementation given iron sat least month 9%. goal iron sat with epogen is > 30% - will further work up anemia with vitamin b12, folate, retic, LDH, hapto, repeat iron studies, SPEP, hep panel thank you for consult. please call with any questions Current Visit: Yes (2) Pneumonia Status: Acute Current Visit: No Qualifiers: Pneumonia type: aspiration pneumonia Aspiration pneumonia type: due to gastric secretions Laterality: unspecified laterality Lung location: unspecified part of lung Qualified Code(s): J69.0 - Pneumonitis due to inhalation of food and vomit (3) Bedbound patient Status: Chronic Current Visit: No (4) History of multiple strokes Status: Chronic Current Visit: No (5) Dementia Status: Acute Current Visit: No (6) Chronic kidney disease, stage III (moderate) Status: Chronic Current Visit: No History of Present Illness Chief complaint: anemia evaluation History of present illness: Mr. Kim is a 61 year old male with PMHx of HTN, DM, CVA, dementia, BPH, AAA , CKD stage 3, bedbound, poorly verbal, and PEG admitted for concerns of increased work of breathing, increased confusion, worsening renal function, and worsening anemia. Patient was admitted last month for aspiration pneumonia and found to have a significant anemia thought secondary to AOCD and CKD. Patient is Jehovahs witness and do not wish for a transfusion. Patient was initiated on epogen in the hospital and on discharge though per she did not give him the injections. Patient had significant degree of epistaxis last month since resolved and no other noted bleeding per whom is patients primary critical care unit manager. Patient takes nutrition and fluids through PEG. No fevers per . Home Medications Medication Instructions Recorded Confirmed Type Aspirin EC Tab 81 mg PO QPM 08/06/16 09/05/16 History Ferrous Sulfate 325 mg PO BID 08/06/16 09/05/16 History Finasteride 5 mg PO DAILY 08/06/16 09/05/16 History Isosorbide Mononitrate [Imdur] 30 mg PO DAILY 08/06/16 09/05/16 History Methocarbamol 500 mg PO BID PRN 08/06/16 09/05/16 History Metoprolol Tartrate 50 mg PO TID 08/06/16 09/05/16 History Pregabalin [Lyrica] 225 mg PO BID 08/06/16 09/05/16 History Sertraline [Zoloft] 25 mg PO DAILY 08/06/16 09/05/16 History Tamsulosin [Flomax] 0.4 mg PO DAILY 08/06/16 09/05/16 History Valsartan 80 mg PO QID 08/06/16 09/05/16 History cloNIDine TAB [Catapres Tab] 0.1 mg PO Q4H 08/06/16 09/05/16 History Pantoprazole Tab [Protonix Tab] 40 mg PO DAILY 09/05/16 09/05/16 History Simvastatin 20 mg PO BEDTIME 09/05/16 09/05/16 History Allergies Allergy/AdvReac Type Severity Reaction Status Date / Time No Known Allergies Allergy Verified 09/05/16 15:45 Medical,Surgical,& Family Hx - Medical History Cardio: History of: Aneurysm, Hypertension Psychological: History of: Anxiety Disorders, Depression Neurology: History of: Cerebral Hemorrhage, Cerebrovascular Accident Endocrine: History of: Diabetes Mellitus (NIDDM) Rheumatology: History of;: Rheumatoid Arthritis Genitourinary: History of: Prostate Problems Gastrointestinal: History of: GERD Hematology: History of: Anemia - Surgical History Neurologic Surgeries: Surgical HX of: Cerebral Hemorrhage - Family History Family History: Reports;: Family Diabetes, Family Heart Disease, Family Hypertension - Social History Smoking Status: Never smoker Frequency of Alcohol Use: None Type of Drug Use: None ROS unobtainable: due to mental status, due to dementia, other (history per patients primary critical care unit manager) - Constitutional Constitutional: Absent: fever(s), night sweats - Respiratory Respiratory: Present: dyspnea. Absent: cough, hemoptysis - Gastrointestinal Gastrointestinal: Present: constipation. Absent: diarrhea, hematochezia, melena , vomiting - Genitourinary Genitourinary ROS male: Absent: hematuria - Hematologic/Lymphatic Hematologic/Lymphatic: Absent: easy bleeding Exam - Constitutional Vitals: Period Temp Pulse Resp BP Sys/Crespo Pulse Ox Last 24 Hr 98.2 F-99.5 F 78-107 14-24 156-197/70-92 88-100 General appearance: mild distress (secondary to increased respiratory effort) - Eye Eye Exam: Present: EOMI, other (opens eyes to command ) - Respiratory Respiratory exam: Present: accessory muscle use, other (bilateral course rhonchi ) - Cardiovascular Cardiovascular exam: Present: tachycardia - GI/Abdominal GI/Abdominal exam: Present: distended, firm. Absent: ascites, guarding, mass - Extremities Exam Extremities exam: Present: other (bilateral atrophy LE). Absent: edema - Neurological Exam Neurological exam: Present: other (bedbound with atrophy, opens eyes to command and squeezes with LUE to command). Absent: alert, oriented X3 - Skin Skin exam: Present: warm Results - Labs CBC & BMP: 09/06/16 08:14 09/06/16 06:25 Quality Measures - VTE Contraindication to Pharmacological VTE Prophylaxis: High Risk of Bleeding
[2016-09-06] MEDS: SODIUM CHLORIDE 0.45% 1,000 ML IV SCH (12:09)
[2016-09-06 12:34] LABS: Troponin I Only 0.022 NG/ML (0.00-0.045)
[2016-09-06 13:28] LABS: ABG Base Excess 0.7 MMOL/L (-2.5-2.5); ABG HCO3 25.7 MMOL/L (20-26); ABG Oxygen Saturation 91.5 % (95-100); ABG PCO2 43.2 MM HG (35-48); ABG PH 7.392 (7.35-7.45); ABG PO2 64.7 MM HG (80-95)
--- NOTE | 2016-09-06 15:21 | Hospitalist Progress Note ---
Assessment and Plan (1) Acute on chronic renal failure Status: Acute Assessment and plan: Creatinine is slowly improving.USS-simple cyst on the left pole. continue IVF, avoid nephrotoxics BMP in am Current Visit: Yes (2) Hyperkalemia Status: Acute Assessment and plan: of 5.6, most likely due to RF Improved Current Visit: Yes (3) Anemia Status: Chronic Assessment and plan: of chronic disease.Patient is a [employer]. Will not allow blood transfusion, open to expanders.Hem/Onc has seen and they have recommended to continue with Epogen and Fe supplements. -will use SCDs for DVT prophylaxis Current Visit: No (4) Hypertension Status: Chronic Assessment and plan: will increase Isosorbide Mononitrate to 30mg bid, follow response Current Visit: No Qualifiers: Hypertension type: essential hypertension Qualified Code(s): I10 - Essential (primary) hypertension (5) Diabetes mellitus Status: Chronic Assessment and plan: continue with SSC insulin, hold metformin due to RF. Get HbA1c level Current Visit: No Qualifiers: Diabetes mellitus type: type 2 Diabetes mellitus complication detail: with other kidney complication (6) History of multiple strokes Status: Chronic Assessment and plan: resulting in right hemiplegia and dysarthria, bed bound -Good Nursing care Current Visit: No (7) Dementia Status: Acute Assessment and plan: most likely resulting from multiple strokes Current Visit: No (8) BPH (benign prostatic hyperplasia) Status: Acute Assessment and plan: continue with meds Current Visit: Yes (9) Leg ulcer Status: Acute Assessment and plan: continue wound care Current Visit: Yes (10) History of abdominal aortic aneurysm Status: Acute Assessment and plan: stable Current Visit: Yes (11) Acute respiratory failure Status: Acute Assessment and plan: most likely due to pneumonia, will treat as HAP. Plan -add Zosyn to Levaquin -nebs treatment -will get a VQ scan and doppler USS of LE -follow cultures Current Visit: Yes (12) Altered mental status Status: Acute Assessment and plan: CT head was negative.Ammonia is normal. Cardiac enzymes are negative. Plan -Hold all sedatives- Robaxin and lyrica Current Visit: Yes Hospitalist: Subjective Interval history: Patient had an episode of chest pain overnight, CXR was suggestive of pneumonia. He was placed on IV antibiotics.This am, he was drowsy, a little dyspneic. CT head was negative, ABG showed PO2-64.7, PCO2-43.2, sating 91.5% on 2L. Exam - Constitutional Vitals: Period Temp Pulse Resp BP Sys/Crespo Pulse Ox Last 24 Hr 98.2 F-99.5 F 78-107 14-24 156-197/70-92 84-100 General appearance: mild distress - Respiratory Respiratory exam: Present: decreased breath sounds - Cardiovascular Cardiovascular exam: Present: regular rate and rhythm - GI/Abdominal GI/Abdominal exam: Present: normal bowel sounds, other (peg tube placement) - Extremities Exam Extremities exam: Present: edema (multiple ulcers), other Results - Labs CBC & BMP: 09/06/16 08:14 09/06/16 06:25 Lab Results: I have reviewed the past 24 hour labs Quality Measures - VTE Contraindication to Pharmacological VTE Prophylaxis: High Risk of Bleeding
[2016-09-06] MEDS: ALBUTEROL/IPRATROPIUM 3 ML NEB RESP TX SCH ×2 (16:49→20:07)
[2016-09-06] MEDS: ASPIRIN EC 81 MG TABLET PO SCH (18:17)
--- NOTE | 2016-09-06 19:43 | Nuclear Medicine Report ---
Nuclear medicine ventilation/perfusion scan Indication: Shortness of breath Findings: Ventilation scan: The patient received 40.0 mCi of 90 9M technetium DTPA aerosolized. There is decreased activity in the left lower lung. Remaining ventilation appears within normal limits. Perfusion scan: Patient received 5.0 mCi of 90 9M technetium MAA intravenously. There is decreased activity in the left lower lung. Otherwise remaining perfusion appears within normal limits. Impression: Matched ventilation/perfusion defect in the left lower lung, intermediate probability for pulmonary embolism. PROCEDURE INTERPRETED AT [facility] DEPARTMENT OF RADIOLOGY Final Report Signed by: Dr. Calixto Cedeno
[2016-09-06] MEDS ORDERED: PIPERACILLIN IV SCH (20:00)
[2016-09-06] MEDS ORDERED: SODIUM CHLORIDE 0.9% IV SCH (20:00)
[2016-09-06] MEDS ORDERED: TAZOBACTAM IV SCH (20:00)
[2016-09-06] MEDS: ISOSORBIDE MONONITRATE 30 MG TABLET PO SCH (21:01)
[2016-09-06] MEDS: SIMVASTATIN 20 MG TABLET PO SCH (21:01)
[2016-09-06] MEDS: PIPERACILLIN/TAZOBACTAM 2,250 MG in SODIUM CHLORIDE 0.9% 100 ML IV SCH (21:42)
[2016-09-07] MEDS: LEVOFLOXACIN INJ 250 MG in PREMIX 1 EACH IV SCH (00:14)
[2016-09-07] MEDS: ALBUTEROL/IPRATROPIUM 3 ML NEB RESP TX SCH ×6 (00:54→19:12)
[2016-09-07] MEDS: cloNIDine 0.1 MG TABLET PO SCH ×5 (05:35→22:27)
[2016-09-07] MEDS: PIPERACILLIN/TAZOBACTAM 2,250 MG in SODIUM CHLORIDE 0.9% 100 ML IV SCH ×3 (05:35→22:27)
[2016-09-07 06:02] LABS: Basophils % 0.1 % (0.0-0.8); Eosinophils # 0.8 10*3/uL (0.0-0.87); Eosinophils % 11.4 % (0.00-10.9); Immature Granulocytes % 0.7 %; Immature Granulocytes Absolute 0.05 #; Lymphocytes # 0.6 10*3/uL (1.4-4.0); Lymphocytes % 8.8 % (21.2-54.2); Mean Corpuscular HGB Conc 31.1 GM/DL (32-36); Mean Corpuscular Hemoglobin 27 PG (27-34); Mean Corpuscular Volume 87.4 FL (87-102); Mean Platelet Volume 13.2 FL (9.6-12.0); Monocytes # 0.6 10*3/uL (0.11-0.8); Monocytes % 8.7 % (1.7-12.7); Neutrophils # 4.9 10*3/uL (1.4-7.4); Neutrophils % 70.3 % (38.7-73.9); Platelet Count 126 T/CUMM (130-400); Red Blood Count 2.06 MC/CUMM (3.8-5.5); Red Cell Distribution Width 19.4 % (9.3-17.3)
[2016-09-07 06:11] LABS: Hemoglobin 5.6 GM/DL (14.0-18.0)
[2016-09-07 06:30] LABS: Calcium 8.1 MG/DL (8.5-10.1); Osmolality,Calculated 303.4 MOS/KG (273-304); Potassium 4.4 MMOL/L (3.5-5.1)
[2016-09-07 06:35] LABS: % Iron Saturation 6.5 % (18-50); Ferritin 123.2 ng/ml (26-388); Total Protein 6.4 G/DL (6.4-8.3)
[2016-09-07 07:34] LABS: Band Neutrophils 11 % (0-10); Eosinophils 1 % (0-10); Hypochromasia 2+; Lymphocytes 6 % (20-55); Microcytosis 1+; Platelet Estimate Decreased; Segmented Neutrophils 74 % (50-85); Total Cells Counted 100
[2016-09-07] MEDS: INSULIN REGULAR 100 UNIT/ML SUBCUT SCH ×4 (08:02→20:30)
[2016-09-07] MEDS ORDERED: EPOETIN ALFA 10,000 UNIT/1 ML VIAL SUBCUT ONE (08:26)
--- NOTE | 2016-09-07 09:31 | Oncology Progress Note ---
Assessment and Plan (1) Anemia Status: Acute Assessment and plan: normocytic - baseline levels Hbs of ~6-7 - likely multi-factorial from anemia of chronic disease, CKD, medications - no known bleeding and level stable over last month - decrease today likely dilutional with a decrease in platelets as well - patient is [employer]ism and strongly disagrees with transfusion per whom is primary senior care manager - continue epogen 10,000 u //. agreeable to this therapy - additional dose today epogein at 10,000 u x 1 to jump start prior to starting /W/ - agree with iron supplementation given iron sat least month 9%. goal iron sat with epogen is > 30% - anemia work up thus far - vitamin b12 and folate normal - corrected retic low - LDH, hapto normal ruling out hemolysis - repeat iron studies consistent with AOCD - pending SPEP, hep panel - add erythropoietin level - agree with continued management of likely aspiration pneumonia and rule out PE thank you for consult. please call with any questions Current Visit: Yes (2) Pneumonia Status: Acute Current Visit: No Qualifiers: Pneumonia type: aspiration pneumonia Aspiration pneumonia type: due to gastric secretions Laterality: unspecified laterality Lung location: unspecified part of lung Qualified Code(s): J69.0 - Pneumonitis due to inhalation of food and vomit (3) Bedbound patient Status: Chronic Current Visit: No (4) History of multiple strokes Status: Chronic Current Visit: No (5) Dementia Status: Acute Current Visit: No (6) Chronic kidney disease, stage III (moderate) Status: Chronic Current Visit: No Oncology Subjective PN Interval history: 61 year old male with extensive PMHx of DM, HTN, CVA, dementia, CKD, bedbound, PEG admitted for worsening shortness of breath, renal function, and anemia. Clinically managed as recurrent aspiration pneumonia. Patient is Mormonism and refuses transfusions. Hb on admit 6.2 decreased to 5.6 today. Overnight patient requiring high oxygen need currently on 50% facemask. Patient is nonverbal. Per breathing more comfortably and more alert and mental status back to baseline today. No bleeding. No fevers. Exam - Constitutional Vitals: Period Temp Pulse Resp BP Sys/Crespo Pulse Ox Last 24 Hr 97.8 F-99.2 F 74-108 14-30 133-194/59-85 84-99 General appearance: mild distress (increased respiratory rate), other (chronic ill appearance) - Eye Eye Exam: Present: other (opens eyes to command and tracks well) - Respiratory Respiratory exam: Present: other (bilateral rhonchi improved today) - Cardiovascular Cardiovascular exam: Present: tachycardia - GI/Abdominal GI/Abdominal exam: Present: distended, soft, other (PEG tube). Absent: ascites , mass - Extremities Exam Extremities exam: Present: other (chronic atrophy with pressure ulcers) - Neurological Exam Neurological exam: Present: other (chronic CVAs at baseline opens eyes, tracks, and squeezes LUE) - Skin Skin exam: Present: warm Results - Labs CBC & BMP: 09/07/16 05:44 09/07/16 05:44 Quality Measures - VTE Contraindication to Pharmacological VTE Prophylaxis: High Risk of Bleeding
[2016-09-07] MEDS: FERROUS SULFATE 325 MG TABLET PO SCH ×2 (09:42→20:26)
[2016-09-07] MEDS: FINASTERIDE 5 MG TABLET PO SCH (09:43)
[2016-09-07] MEDS: PANTOPRAZOLE 40 MG TABLET PO SCH (09:43)
[2016-09-07] MEDS: ISOSORBIDE MONONITRATE 30 MG TABLET PO SCH ×2 (09:43→20:27)
[2016-09-07] MEDS: SERTRALINE 25 MG TABLET PO SCH (09:43)
[2016-09-07] MEDS: TAMSULOSIN 0.4 MG CAPSULE PO SCH (09:43)
[2016-09-07] MEDS: METOPROLOL TARTRATE 50 MG TABLET PO SCH ×3 (09:43→20:27)
--- NOTE | 2016-09-07 10:45 | Ultrasound Report ---
Venous Doppler ultrasound bilateral lower extremities Indication: Shortness of breath and pain Comparison: None available Findings: No evidence of echogenic, noncompressible thrombus seen in the visualized veins of the extremities. Color Doppler venous waveform pattern is within normal limits. Impression: No evidence of deep venous thrombosis. Ultrasound images stored and captured. PROCEDURE INTERPRETED AT [facility] DEPARTMENT OF RADIOLOGY Final Report Signed by: Dr. Calixto Cedeno
[2016-09-07] MEDS: ACETAMINOPHEN 325 MG TABLET PO PRN (13:37)
--- NOTE | 2016-09-07 14:31 | Hospitalist Progress Note ---
Assessment and Plan (1) Acute on chronic renal failure Status: Acute Assessment and plan: Creatinine is stable.USS-simple cyst on the left pole. continue IVF, avoid nephrotoxics BMP in am Current Visit: Yes (2) Hyperkalemia Status: Acute Assessment and plan: of 5.6, most likely due to RF Improved Current Visit: Yes (3) Anemia Status: Chronic Assessment and plan: of chronic disease.Patient is a [employer]. Will not allow blood transfusion, open to expanders.Hem/Onc has seen and they have recommended to continue with Epogen and Fe supplements. -will use SCDs for DVT prophylaxis Current Visit: No (4) Hypertension Status: Chronic Assessment and plan: stable. Current Visit: No Qualifiers: Hypertension type: essential hypertension Qualified Code(s): I10 - Essential (primary) hypertension (5) Diabetes mellitus Status: Chronic Assessment and plan: continue with SSC insulin, hold metformin due to RF. HbA1c level-4.2 Current Visit: No Qualifiers: Diabetes mellitus type: type 2 Diabetes mellitus complication detail: with other kidney complication (6) History of multiple strokes Status: Chronic Assessment and plan: resulting in right hemiplegia and dysarthria, bed bound -Good Nursing care Current Visit: No (7) Dementia Status: Acute Assessment and plan: most likely resulting from multiple strokes Current Visit: No (8) BPH (benign prostatic hyperplasia) Status: Acute Assessment and plan: continue with meds Current Visit: Yes (9) Leg ulcer Status: Acute Assessment and plan: continue wound care Current Visit: Yes (10) History of abdominal aortic aneurysm Status: Acute Assessment and plan: stable Current Visit: Yes (11) Acute respiratory failure Status: Acute Assessment and plan: most likely due to pneumonia, will treat as HAP. We suspect PE- high Ddimers, intermediate probability on VQ, patient has severe anemia and being a Jehovah's withness, transfusion is not an option, it is difficult to start anticoagulation. Dopplers were negative for DVT. Sputum grew gram negative rods. Plan -continue Zosyn and Levaquin -continue nebs treatment -Pulm consult Current Visit: Yes (12) Altered mental status Status: Acute Assessment and plan: CT head was negative.Ammonia is normal. Cardiac enzymes are negative. Plan -Continue to Hold all sedatives- Robaxin and lyrica Current Visit: Yes (13) Pneumonia Status: Acute Assessment and plan: HAP vs Aspiration pneumonia. Sputum grew gram negative Rods Plan continue with Levfrank and Dawit Pulm to see Current Visit: No Qualifiers: Pneumonia type: aspiration pneumonia Aspiration pneumonia type: due to gastric secretions Laterality: unspecified laterality Lung location: unspecified part of lung Qualified Code(s): J69.0 - Pneumonitis due to inhalation of food and vomit Hospitalist: Subjective Interval history: Patient had an unevetful night. VQ scan showed intermediate possibility for PE, doppler USS was negative for DVT but D-Dimer is elevated.His H/H are dropping- 5.6/18.0 today, Hem/Onc is following Exam - Constitutional Vitals: Period Temp Pulse Resp BP Sys/Crespo Pulse Ox Last 24 Hr 97.8 F-98.9 F 74-108 16-30 133-194/59-85 93-99 General appearance: no acute distress - Respiratory Respiratory exam: Present: rales - Cardiovascular Cardiovascular exam: Present: regular rate and rhythm - GI/Abdominal GI/Abdominal exam: Present: normal bowel sounds - Extremities Exam Extremities exam: Present: other (ulcers) Results - Labs CBC & BMP: 09/07/16 05:44 09/07/16 05:44 Lab Results: I have reviewed the past 24 hour labs Quality Measures - VTE Contraindication to Pharmacological VTE Prophylaxis: High Risk of Bleeding
[2016-09-07] MEDS: SODIUM CHLORIDE 0.45% 1,000 ML IV SCH ×2 (15:04→21:35)
--- NOTE | 2016-09-07 16:37 | Pulmonology Consult Note ---
Assessment and Plan (1) Pneumonia Status: Acute Assessment and plan: Chest x-ray is significantly abnormal for bilateral multifocal infiltrates that were not present on chest x-ray in July. This is concerning for development of multifocal pneumonia with aspiration being the most likely cause given his comorbidities and recent depressed mental status. Other considerations include DAH given his ongoing anemia. Recommend further evaluation with CT chest, noncontrast due to his renal function. Continue current antibiotics while awaiting results from sputum culture. Current Visit: No Qualifiers: Pneumonia type: aspiration pneumonia Aspiration pneumonia type: due to gastric secretions Laterality: unspecified laterality Lung location: unspecified part of lung Qualified Code(s): J69.0 - Pneumonitis due to inhalation of food and vomit (2) Anemia Status: Chronic Assessment and plan: Hematology following Current Visit: No History of Present Illness Chief complaint: Dyspnea History of present illness: Mr. 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 In his evaluation he has also been found to have a significant cough with purulent sputum production and a chest x-ray showed multifocal infiltrates, so pulmonary is now consulted for further evaluation. History is obtained from patient's sister who is his primary caregiver. Patient was minimally interactive during our exam. Patient' s sister states that he was recently admitted to [facility] for aspiration pneumonia in early July and was discharged around 12 August in stable condition. At the time of discharge she feels his breathing status had significantly improved. Since discharge, over the last few days, she has noted a decline in his mental status and an increased cough with sputum production. She also noted a slight increase in his temperature the day prior to admission. She thinks that his sputum is mostly clear but has had some evidence of dried blood. She does admit to him having epistaxis as well.. Home Medications Medication Instructions Recorded Confirmed Type Aspirin EC Tab 81 mg PO QPM 08/06/16 09/05/16 History Ferrous Sulfate 325 mg PO BID 08/06/16 09/05/16 History Finasteride 5 mg PO DAILY 08/06/16 09/05/16 History Isosorbide Mononitrate [Imdur] 30 mg PO DAILY 08/06/16 09/05/16 History Methocarbamol 500 mg PO BID PRN 08/06/16 09/05/16 History Metoprolol Tartrate 50 mg PO TID 08/06/16 09/05/16 History Pregabalin [Lyrica] 225 mg PO BID 08/06/16 09/05/16 History Sertraline [Zoloft] 25 mg PO DAILY 08/06/16 09/05/16 History Tamsulosin [Flomax] 0.4 mg PO DAILY 08/06/16 09/05/16 History Valsartan 80 mg PO QID 08/06/16 09/05/16 History cloNIDine TAB [Catapres Tab] 0.1 mg PO Q4H 08/06/16 09/05/16 History Pantoprazole Tab [Protonix Tab] 40 mg PO DAILY 09/05/16 09/05/16 History Simvastatin 20 mg PO BEDTIME 09/05/16 09/05/16 History Allergies Allergy/AdvReac Type Severity Reaction Status Date / Time No Known Allergies Allergy Verified 09/05/16 15:45 ROS unobtainable: due to mental status Exam (Pulmonay) H&P - Constitutional Vitals: Period Temp Pulse Resp BP Sys/Crespo Pulse Ox Last 24 Hr 97.8 F-98.7 F 74-108 16-30 133-194/59-85 95-99 General appearance: over weight - Head Head exam: Present: normal inspection - Neck Neck exam: Present: normal inspection - Respiratory Respiratory exam: Present: clear to auscultation bilaterally. Absent: accessory muscle use, wheezes - Cardiovascular Cardiovascular exam: Present: regular rate and rhythm - GI/Abdominal GI/Abdominal exam: Present: normal bowel sounds, soft. Absent: tenderness - Extremities Exam Extremities exam: Present: other (Multiple toe amputations) - Neurological Exam Neurological exam: Present: altered (Sister states he recently received narcotics for complaint of arthritic pain. At the time of my exam he is minimally interactive.) - Skin Skin exam: Present: warm, dry Medical,Surgical,& Family Hx - Medical History Cardio: History of: Aneurysm, Hypertension Psychological: History of: Anxiety Disorders, Depression Neurology: History of: Cerebral Hemorrhage, Cerebrovascular Accident Endocrine: History of: Diabetes Mellitus (NIDDM) Rheumatology: History of;: Rheumatoid Arthritis Genitourinary: History of: Prostate Problems Gastrointestinal: History of: GERD Hematology: History of: Anemia - Surgical History Neurologic Surgeries: Surgical HX of: Cerebral Hemorrhage - Family History Family History: Reports;: Family Diabetes, Family Heart Disease, Family Hypertension - Social History Smoking Status: Never smoker Frequency of Alcohol Use: None Type of Drug Use: None Results - Labs CBC & BMP: 09/07/16 05:44 09/07/16 05:44 - Diagnostic Findings Procedure: Chest x-ray: image reviewed by me, report reviewed by me (Multifocal bilateral patchy infiltrates), Ultrasound: report reviewed by me (No DVT) Quality Measures - VTE Contraindication to Pharmacological VTE Prophylaxis: High Risk of Bleeding
[2016-09-07] MEDS ORDERED: MAGNESIUM HYDROXIDE SUSP 30 ML UDCUP PO PRN (17:06)
[2016-09-07] MEDS: ASPIRIN EC 81 MG TABLET PO SCH (18:01)
[2016-09-07] MEDS: SIMVASTATIN 20 MG TABLET PO SCH (20:27)
[2016-09-08] MEDS: ALBUTEROL/IPRATROPIUM 3 ML NEB RESP TX SCH ×3 (00:11→07:24)
[2016-09-08] MEDS: LEVOFLOXACIN INJ 250 MG in PREMIX 1 EACH IV SCH (00:15)
[2016-09-08] MEDS: cloNIDine 0.1 MG TABLET PO SCH ×6 (05:14→22:03)
[2016-09-08] MEDS: PIPERACILLIN/TAZOBACTAM 2,250 MG in SODIUM CHLORIDE 0.9% 100 ML IV SCH ×3 (05:14→22:10)
[2016-09-08 06:30] LABS: Magnesium 2.9 MG/DL (1.8-2.4); Phosphorous 4.8 MG/DL (2.5-4.9)
[2016-09-08 07:18] LABS: Hepatitis A Ab IgM Quant < 0.02 Index; Hepatitis A Ab IgM Result Negative (Negative); Hepatitis B Core IgM Quant 0.18 Index; Hepatitis B Core IgM Result Negative (Negative); Hepatitis B Surface Ag Quant 0.11 Index; Hepatitis B Surface Ag Result Negative (Negative); Hepatitis C Virus Ab Quant 0.15 Index; Hepatitis C Virus Ab Result Negative (Negative)
[2016-09-08] MEDS: INSULIN REGULAR 100 UNIT/ML SUBCUT SCH ×4 (08:29→22:06)
[2016-09-08] MEDS: SERTRALINE 25 MG TABLET PO SCH (08:29)
[2016-09-08] MEDS: ISOSORBIDE MONONITRATE 30 MG TABLET PO SCH ×2 (08:29→22:03)
[2016-09-08] MEDS: FERROUS SULFATE 325 MG TABLET PO SCH ×2 (08:31→22:03)
[2016-09-08] MEDS: FINASTERIDE 5 MG TABLET PO SCH (08:31)
[2016-09-08] MEDS: METOPROLOL TARTRATE 50 MG TABLET PO SCH ×3 (08:31→22:03)
[2016-09-08] MEDS: TAMSULOSIN 0.4 MG CAPSULE PO SCH (08:31)
[2016-09-08] MEDS: PANTOPRAZOLE 40 MG TABLET PO SCH (08:31)
[2016-09-08] MEDS ORDERED: FUROSEMIDE 40 MG/4 ML VIAL IV ONE (10:04)
--- NOTE | 2016-09-08 10:11 | Pulmonology Progress Note ---
Pulmonary - PN: Subj Interval history: The patient is a 61-year-old white man that is a Oriental orthodox and is in very poor condition. He apparently has been bedridden since 2008 when he had CVAs. He came in with low-grade fever and significant weight and some congestion. He has felt to have some pneumonia. He does have bilateral infiltrates. He can give any history. He is requiring oxygen and gets hypoxemic at times. He has not been able to cough much. His hemoglobin is 4.7 family does not want him to get blood. He does have bilateral infiltrates on his chest x-ray. His VQ scan shows ventilation and perfusion matches and is intermediate and does not show definite emboli. His Dopplers of his legs are negative. Certainly would not treat him with anticoagulation. His chest x-ray actually looks a little wet. His beta natriuretic peptide is a little elevated. At present he is relatively comfortable on oxygen. Exam (Progress Note) - Constitutional Vitals: Period Temp Pulse Resp BP Sys/Crespo Pulse Ox Last 24 Hr 97.5 F-99.2 F 88-124 16-21 118-179/50-79 91-100 General appearance: mild distress (He looks comfortable on facemask O2.), over weight - Head Head exam: Present: normal inspection, normocephalic - Eye Eye exam: Present: EOMI. Absent: scleral icterus Pupils: Present: JOVANY - ENT ENT exam: Present: other (He has very pale) - Neck Neck exam: Present: normal inspection. Absent: lymphadenopathy, thyromegaly - Respiratory Respiratory exam: Present: rales, rhonchi, other (He has fairly good breath sounds bilaterally with some bilateral crackles.). Absent: accessory muscle use - Cardiovascular Cardiovascular exam: Present: regular rate and rhythm, systolic murmur (He does have a soft murmur). Absent: gallop - GI/Abdominal GI/Abdominal exam: Present: hypoactive bowel sounds, soft. Absent: organomegaly , tenderness - Extremities Exam Extremities exam: Present: other (Multiple toe amputations). Absent: calf tenderness, edema - Neurological Exam Neurological exam: Present: other (He does not really respond very well) - Psychiatric Psychiatric exam: Absent: anxious - Skin Skin exam: Present: warm, pallor Results - Labs CBC & BMP: 09/08/16 10:10 09/08/16 10:10 - Diagnostic Findings Procedure: Chest x-ray: image reviewed by me, report reviewed by me (Chest x- ray showed bilateral infiltrates and this could be mild CHF.), Ultrasound: report reviewed by me ( of the legs were negative for clots.) Assessment and Plan (1) Anemia Status: Chronic Assessment and plan: The patient has severe anemia and refuses transfusions. Hematology is following. Current Visit: No (2) Pneumonia Status: Acute Assessment and plan: Patient has been treated for aspiration pneumonia. He does have bilateral infiltrates. He does have E. coli on culture. Current Visit: No Qualifiers: Pneumonia type: aspiration pneumonia Aspiration pneumonia type: due to gastric secretions Laterality: unspecified laterality Lung location: unspecified part of lung Qualified Code(s): J69.0 - Pneumonitis due to inhalation of food and vomit (3) Bedbound patient Status: Chronic Assessment and plan: The patient has had previous CVAs and is bedbound. He is quite debilitated. Current Visit: No (4) History of multiple strokes Status: Chronic Assessment and plan: Patient has had multiple CVAs and is certainly chronically ill. Current Visit: No (5) Diabetes mellitus Status: Chronic Assessment and plan: Glucose is 207 earlier Current Visit: No Qualifiers: Diabetes mellitus type: type 2 Diabetes mellitus complication detail: with other kidney complication (6) Acute on chronic renal failure Status: Acute Assessment and plan: Creatinine is 2.6 today. Current Visit: Yes (7) Acute respiratory failure Status: Acute Assessment and plan: The patient does have hypoxemia but is responding to oxygen therapy. We will try to diurese a little. Current Visit: Yes (8) Altered mental status Status: Acute Assessment and plan: The patient has dementia and gets confused easily. He also has been sedated a little. His outlook is very poor and he should be a DNR. Current Visit: Yes
[2016-09-08 10:40] LABS: Total Protein (Chem) 6.4 G/DL (6.4-8.2)
[2016-09-08 10:48] LABS: Albumin (SPE) 3.3 G/DL (3.2-5.3); Albumin (SPE) Rel % 50.9 %; Alpha 1 (SPE) 0.3 G/DL (0.1-0.4); Alpha 1 (SPE) Rel % 5.5 %; Alpha 2 (SPE) 0.9 G/DL (0.4-1.0); Alpha 2 (SPE) Rel % 13.5 %; Beta (SPE) 0.7 G/DL (0.5-1.1); Beta (SPE) Rel % 11.3 %; Gamma (SPE) 1.2 G/DL (0.7-1.7); Gamma (SPE) Rel % 18.8 %
[2016-09-08 10:58] LABS: Eosinophils # 0.9 10*3/uL (0.0-0.87); Eosinophils % 13.2 % (0.00-10.9); Hematocrit 15.9 VOL% (42.0-52.0); Immature Granulocytes % 0.6 %; Immature Granulocytes Absolute 0.04 #; Lymphocytes # 0.4 10*3/uL (1.4-4.0); Lymphocytes % 5.5 % (21.2-54.2); Mean Corpuscular HGB Conc 29.6 GM/DL (32-36); Mean Corpuscular Hemoglobin 26 PG (27-34); Mean Corpuscular Volume 88.8 FL (87-102); Mean Platelet Volume 13.3 FL (9.6-12.0); Monocytes # 0.7 10*3/uL (0.11-0.8); Monocytes % 9.4 % (1.7-12.7); Neutrophils # 4.9 10*3/uL (1.4-7.4); Neutrophils % 71.3 % (38.7-73.9); Platelet Count 128 T/CUMM (130-400); Red Blood Count 1.79 MC/CUMM (3.8-5.5); Red Cell Distribution Width 19.6 % (9.3-17.3); White Blood Count 6.9 T/CUMM (4-12)
[2016-09-08 11:00] LABS: Hemoglobin 4.7 GM/DL (14.0-18.0)
[2016-09-08 11:15] LABS: Hypochromasia 1+; Microcytosis 1+; Polychromasia Slight; Tear Drop Cells Slight
[2016-09-08 11:16] LABS: Platelet Estimate Adequate
[2016-09-08] MEDS: EPOETIN ALFA 10,000 UNIT/1 ML VIAL SUBCUT SCH (11:19)
[2016-09-08 11:31] LABS: Alanine Aminotransferase < 9 U/L (16-61); Albumin 2.6 G/DL (3.4-5.0); Alkaline Phosphatase 73 U/L (45-117); Aspartate Amino Transferase 14 U/L (0-37); Blood Urea Nitrogen 72 MG/DL (7-18); Glucose 184 MG/DL (74-106); Osmolality,Calculated 308.1 MOS/KG (273-304); Potassium 4.4 MMOL/L (3.5-5.1); Sodium 142 MMOL/L (136-145); Total Protein 6.1 G/DL (6.4-8.3)
--- NOTE | 2016-09-08 12:04 | Hospitalist Progress Note ---
Assessment and Plan (1) Acute on chronic renal failure Status: Acute Assessment and plan: Creatinine is stable.USS-simple cyst on the left pole. continue IVF, avoid nephrotoxics BMP in am Current Visit: Yes (2) Hyperkalemia Status: Acute Assessment and plan: of 5.6, most likely due to RF Improved Current Visit: Yes (3) Anemia Status: Chronic Assessment and plan: of chronic disease.Patient is a Confucianism.H/H is dropping, no clinical evidence of bleed. Patient will not allow blood transfusion, open to expanders.Hem/Onc has seen and they have recommended to continue with Epogen and Fe supplements. -will use SCDs for DVT prophylaxis -will avoid freq blood drawns. Current Visit: No (4) Hypertension Status: Chronic Assessment and plan: will add Norvasc 5mg daily, follow response Current Visit: No Qualifiers: Hypertension type: essential hypertension Qualified Code(s): I10 - Essential (primary) hypertension (5) Diabetes mellitus Status: Chronic Assessment and plan: continue with SSC insulin,continue to hold metformin due to RF.Will start Lantus 10units qhs,follow response. HbA1c level-4.2 Current Visit: No Qualifiers: Diabetes mellitus type: type 2 Diabetes mellitus complication detail: with other kidney complication (6) History of multiple strokes Status: Chronic Assessment and plan: resulting in right hemiplegia and dysarthria, bed bound -Good Nursing care Current Visit: No (7) Dementia Status: Acute Assessment and plan: most likely resulting from multiple strokes Current Visit: No (8) BPH (benign prostatic hyperplasia) Status: Acute Assessment and plan: continue with meds Current Visit: Yes (9) Leg ulcer Status: Acute Assessment and plan: continue wound care Current Visit: Yes (10) History of abdominal aortic aneurysm Status: Acute Assessment and plan: stable Current Visit: Yes (11) Acute respiratory failure Status: Acute Assessment and plan: most likely due to pneumonia, will treat as HAP vs Aspiration.. We suspect PE- high Ddimers, intermediate probability on VQ, patient has severe anemia and being a Jehovah's withness, transfusion is not an option, it is difficult to start anticoagulation. Dopplers were negative for DVT. Sputum grew gram negative rods.Appreciates Pulm's consult. Plan -continue Zosyn and Levaquin -continue nebs treatment Current Visit: Yes (12) Altered mental status Status: Acute Assessment and plan: CT head was negative.Ammonia is normal. Cardiac enzymes are negative. Plan -Continue to Hold all sedatives- Robaxin and lyrica Current Visit: Yes (13) Pneumonia Status: Acute Assessment and plan: HAP vs Aspiration pneumonia. Sputum grew E.[id number] to Levaquin Plan continue with Zosyn, dc Levaquin Current Visit: No Qualifiers: Pneumonia type: aspiration pneumonia Aspiration pneumonia type: due to gastric secretions Laterality: unspecified laterality Lung location: unspecified part of lung Qualified Code(s): J69.0 - Pneumonitis due to inhalation of food and vomit Hospitalist: Subjective Interval history: Patient is tachycardic. His H/H dropped to 4.7/15.9. There is no clinical evidence of bleed. Exam - Constitutional Vitals: Period Temp Pulse Resp BP Sys/Crespo Pulse Ox Last 24 Hr 97.5 F-99.2 F 88-124 16-21 118-179/50-79 91-100 General appearance: no acute distress - Head Head exam: Present: normal inspection - Respiratory Respiratory exam: Present: clear to auscultation bilaterally - Cardiovascular Cardiovascular exam: Present: regular rate and rhythm - GI/Abdominal GI/Abdominal exam: Present: normal bowel sounds - Extremities Exam Extremities exam: Present: other (multiple ulcers) Results - Labs CBC & BMP: 09/08/16 10:10 09/08/16 10:10 Lab Results: I have reviewed the past 24 hour labs Quality Measures - VTE Contraindication to Pharmacological VTE Prophylaxis: High Risk of Bleeding
[2016-09-08] MEDS: amLODIPine 5 MG TABLET PO SCH ×2 (12:43→14:08)
[2016-09-08] MEDS: LEVALBUTEROL 1.25 MG/3 ML NEB RESP TX SCH (14:09)
[2016-09-08] MEDS: BACITRACIN OINT 0.9 GM PACK TOP SCH (15:47)
[2016-09-08] MEDS: ACETAMINOPHEN 325 MG TABLET PO PRN (16:03)
--- NOTE | 2016-09-08 17:19 | Hematology Progress Note ---
Hematology Subjective PN Interval history: This is a 61-year-old white male with a history of chronic kidney disease and severe anemia that is felt to be related to his kidney disease along with anemia of chronic disease. Hematology saw him over the weekend who recommended Epogen 3 times per week. The family is Jehovah witness and refuses any blood transfusion. His hemoglobin is just under 5 today. Upon admission his hemoglobin was just above 6. This is not really a significant change and could be easily accounted for by normal lab variation. The family is adamant that they do not want any type of transfusion but would like anything else available. Unfortunately at this time, beyond doing Epogen, there is nothing else to offer. I see no benefit in transferring patient to another hospital as they do not have artificial blood products either. He does not appear to have any overt GI bleeding. He does not show any evidence of hemolysis. He continues to have mild epistaxis so it may be worthwhile getting ENT involved to see if there is any bleeding vessels to cauterize. I do not think his epistaxis is enough to cause his severe anemia by any means. Exam - Constitutional Vitals: Period Temp Pulse Resp BP Sys/Crespo Pulse Ox Last 24 Hr 97.5 F-101.5 F 88-124 16-21 130-179/64-79 91-100 Results - Labs CBC & BMP: 09/08/16 10:10 09/08/16 10:10 Quality Measures - VTE Contraindication to Pharmacological VTE Prophylaxis: High Risk of Bleeding
[2016-09-08] MEDS: ASPIRIN EC 81 MG TABLET PO SCH (18:43)
[2016-09-08] MEDS ORDERED: INSULIN GLARGINE 100 UNIT/ML SUBCUT SCH ×2 (21:00)
[2016-09-08] MEDS: SIMVASTATIN 20 MG TABLET PO SCH (22:03)
[2016-09-08] MEDS: CYANOCOBALAMIN 500 MCG TABLET PO SCH (22:03)
[2016-09-08] MEDS: FOLIC ACID 0.4 MG TABLET PO SCH (22:03)
[2016-09-08] MEDS: DESITIN 4OZ/NYSTATIN 15 GRAM MIXTURE PASTE TOP SCH (22:16)
[2016-09-09] MEDS: LEVALBUTEROL 1.25 MG/3 ML NEB RESP TX SCH ×4 (01:09→23:58)
[2016-09-09] MEDS: PIPERACILLIN/TAZOBACTAM 2,250 MG in SODIUM CHLORIDE 0.9% 100 ML IV SCH ×3 (06:14→21:46)
[2016-09-09] MEDS: cloNIDine 0.1 MG TABLET PO SCH ×6 (06:17→22:16)
--- NOTE | 2016-09-09 07:04 | XRay Report ---
Exam: XR chest 1V portable Date: 09/09/2016 4:00 AM Indication: Pneumonia Comparison: 09/05/2016 Technical: AP portable Findings: Patchy alveolar infiltrates present in the right upper and lower lobe region and left base. Cardiomegaly is present. ASVD is present. No pneumothorax. Mediastinum is intact. Oxygen tubing is present. Impression: 1. Cardiomegaly 2. Persistent bilateral pneumonic infiltrates and low volume effusions PROCEDURE INTERPRETED AT [facility] DEPARTMENT OF RADIOLOGY Final Report Signed by: Dr. Cayetano Hayden
[2016-09-09 07:21] LABS: Calcium 7.9 MG/DL (8.5-10.1); Osmolality,Calculated 306.3 MOS/KG (273-304); Potassium 4.5 MMOL/L (3.5-5.1)
[2016-09-09] MEDS: METOPROLOL TARTRATE 50 MG TABLET PO SCH ×3 (09:18→20:12)
[2016-09-09] MEDS: FOLIC ACID 0.4 MG TABLET PO SCH ×2 (09:18→20:15)
[2016-09-09] MEDS: FERROUS SULFATE 325 MG TABLET PO SCH (09:18)
[2016-09-09] MEDS: SERTRALINE 25 MG TABLET PO SCH (09:18)
[2016-09-09] MEDS: FINASTERIDE 5 MG TABLET PO SCH (09:18)
[2016-09-09] MEDS: TAMSULOSIN 0.4 MG CAPSULE PO SCH (09:18)
[2016-09-09] MEDS: ISOSORBIDE MONONITRATE 30 MG TABLET PO SCH ×2 (09:18→20:12)
[2016-09-09] MEDS: BACITRACIN OINT 0.9 GM PACK TOP SCH (09:18)
[2016-09-09] MEDS: INSULIN REGULAR 100 UNIT/ML SUBCUT SCH ×4 (09:18→22:18)
[2016-09-09] MEDS: amLODIPine 5 MG TABLET PO SCH (09:18)
[2016-09-09] MEDS: CYANOCOBALAMIN 500 MCG TABLET PO SCH ×2 (09:19→22:16)
[2016-09-09] MEDS: PANTOPRAZOLE 40 MG TABLET PO SCH (09:19)
[2016-09-09] MEDS: DESITIN 4OZ/NYSTATIN 15 GRAM MIXTURE PASTE TOP SCH ×2 (09:20→20:24)
--- NOTE | 2016-09-09 09:22 | Pulmonology Progress Note ---
Pulmonary - PN: Subj Interval history: The patient is a 61-year-old white man that is a Sabianist and is in very poor condition. He apparently has been bedridden since 2008 when he had CVAs. He came in with low-grade fever and significant weight and some congestion. He has felt to have some pneumonia. He does have bilateral infiltrates. He can not give any history. He is requiring oxygen and gets hypoxemic at times. He has not been able to cough much. His hemoglobin is 4.7 family does not want him to get blood. He does have bilateral infiltrates on his chest x-ray. His VQ scan shows ventilation and perfusion matches and is intermediate and does not show definite emboli. His Dopplers of his legs are negative. Certainly would not treat him with anticoagulation. At present he seems to be breathing comfortably on facemask O2. He has quite lethargic. He does not appear to be having any respiratory distress. His blood pressure has been stable. He apparently is voiding okay. It is hard to know if he diuresed any yesterday. Overall he looks about the same. Exam (Progress Note) - Constitutional Vitals: Period Temp Pulse Resp BP Sys/Crespo Pulse Ox Last 24 Hr 98.6 F-101.5 F 87-111 16-20 102-163/50-79 94-100 Exam: General appearance: mild distress (He looks comfortable on facemask O2. He has chronically ill-appearing but is comfortable in bed.), over weight - Head Head exam: Present: normal inspection, normocephalic - Eye Eye exam: Present: EOMI. Absent: scleral icterus Pupils: Present: JOVANY - ENT ENT exam: Present: other (He has very pale) - Neck Neck exam: Present: normal inspection. Absent: lymphadenopathy, thyromegaly - Respiratory Respiratory exam: Present: He does have fair breath sounds bilaterally with some mild rhonchi present. He does seem to be breathing comfortably. - Cardiovascular Cardiovascular exam: Present: regular rate and rhythm, systolic murmur (He does have a soft murmur). Absent: gallop - GI/Abdominal GI/Abdominal exam: Present: hypoactive bowel sounds, soft. Absent: organomegaly , tenderness - Extremities Exam Extremities exam: Present: other (Multiple toe amputations). Absent: calf tenderness, edema - Neurological Exam Neurological exam: Present: other (He does not really respond very well) - Psychiatric Psychiatric exam: Absent: anxious - Skin Skin exam: Present: warm, pallor Results - Labs CBC & BMP: 09/08/16 10:10 09/09/16 05:29 Assessment and Plan (1) Anemia Status: Chronic Assessment and plan: The patient has severe anemia and refuses transfusions. Hematology is following. Current Visit: No (2) Pneumonia Status: Acute Assessment and plan: Patient has been treated for aspiration pneumonia. He does have bilateral infiltrates. He does have E. coli ESBL on culture. He is on Zosyn at the present time. He is breathing comfortably and has an adequate O2 saturation. Current Visit: No Qualifiers: Pneumonia type: aspiration pneumonia Aspiration pneumonia type: due to gastric secretions Laterality: unspecified laterality Lung location: unspecified part of lung Qualified Code(s): J69.0 - Pneumonitis due to inhalation of food and vomit (3) Bedbound patient Status: Chronic Assessment and plan: The patient has had previous CVAs and is bedbound. He is quite debilitated. Current Visit: No (4) History of multiple strokes Status: Chronic Assessment and plan: Patient has had multiple CVAs and is certainly chronically ill. He is bedridden and poorly responsive. Current Visit: No (5) Diabetes mellitus Status: Chronic Assessment and plan: Glucose is 163 this morning. Current Visit: No Qualifiers: Diabetes mellitus type: type 2 Diabetes mellitus complication detail: with other kidney complication (6) Acute on chronic renal failure Status: Acute Assessment and plan: Creatinine is 2.7 today. Current Visit: Yes (7) Acute respiratory failure Status: Acute Assessment and plan: The patient does have hypoxemia but is responding to oxygen therapy. He seems to be breathing comfortably with facemask O2. Current Visit: Yes (8) Altered mental status Status: Acute Assessment and plan: The patient has multi-infarct dementia and is severely debilitated. He has severe anemia along with some pneumonia. He has chronic renal failure. His overall outlook is very very poor. He should not be put on the ventilator. Current Visit: Yes
--- NOTE | 2016-09-09 12:23 | Hospitalist Progress Note ---
Assessment and Plan (1) Acute on chronic renal failure Status: Acute Assessment and plan: USS-simple cyst on the left pole.This is not really improving. continue IVF, avoid nephrotoxics Consult nephrology Current Visit: Yes (2) Hyperkalemia Status: Acute Assessment and plan: of 5.6, most likely due to RF Improved Current Visit: Yes (3) Anemia Status: Chronic Assessment and plan: of chronic disease.Patient is a Confucianism.H/H is dropping, no clinical evidence of an acute bleed. Patient will not allow blood transfusion, open to expanders.Hem/Onc has seen and they have recommended to continue with Epogen and Fe supplements.Sister states patient had an episode of epistaxis -will use SCDs for DVT prophylaxis -will avoid freq blood drawns. ENT to see Current Visit: No (4) Hypertension Status: Chronic Assessment and plan: stable Current Visit: No Qualifiers: Hypertension type: essential hypertension Qualified Code(s): I10 - Essential (primary) hypertension (5) Diabetes mellitus Status: Chronic Assessment and plan: continue with SSC insulin,continue to hold metformin due to RF.Increase Lantus to 20units qhs,follow response. HbA1c level-4.2 Current Visit: No Qualifiers: Diabetes mellitus type: type 2 Diabetes mellitus complication detail: with other kidney complication (6) History of multiple strokes Status: Chronic Assessment and plan: resulting in right hemiplegia and dysarthria, bed bound -Good Nursing care Current Visit: No (7) Dementia Status: Acute Assessment and plan: most likely resulting from multiple strokes Current Visit: No (8) BPH (benign prostatic hyperplasia) Status: Acute Assessment and plan: continue with meds Current Visit: Yes (9) Leg ulcer Status: Acute Assessment and plan: continue wound care Current Visit: Yes (10) History of abdominal aortic aneurysm Status: Acute Assessment and plan: stable Current Visit: Yes (11) Acute respiratory failure Status: Acute Assessment and plan: most likely due to pneumonia, will treat as HAP vs Aspiration.. We suspect PE- high Ddimers, intermediate probability on VQ, patient has severe anemia and being a Jehovah's withness, transfusion is not an option, it is difficult to start anticoagulation. Dopplers were negative for DVT. Sputum grew gram negative rods.Appreciates Pulm's consult. Plan -continue Zosyn and Levaquin -continue nebs treatment Current Visit: Yes (12) Altered mental status Status: Acute Assessment and plan: CT head was negative.Ammonia is normal. Cardiac enzymes are negative. Plan -Continue to Hold all sedatives- Robaxin and lyrica Current Visit: Yes (13) Pneumonia Status: Acute Assessment and plan: HAP vs Aspiration pneumonia. Sputum grew E.[id number] to Levaquin Plan continue with Zosyn, dc Levaquin Current Visit: No Qualifiers: Pneumonia type: aspiration pneumonia Aspiration pneumonia type: due to gastric secretions Laterality: unspecified laterality Lung location: unspecified part of lung Qualified Code(s): J69.0 - Pneumonitis due to inhalation of food and vomit Hospitalist: Subjective Interval history: Patient seen. He was sleepy and a bit difficult to arouse. Sister said her didnt sleep all night and was just catching up on his sleep. His H/H keeps dropping despite no clinical evidence of acut bleed although sister said he had an episode of epistaxis. Exam - Constitutional Vitals: Period Temp Pulse Resp BP Sys/Crespo Pulse Ox Last 24 Hr 98.2 F-101.5 F 87-111 16-20 102-163/50-79 94-100 General appearance: no acute distress - Head Head exam: Present: other (petechiae on the head) - Respiratory Respiratory exam: Present: clear to auscultation bilaterally - Cardiovascular Cardiovascular exam: Present: regular rate and rhythm - GI/Abdominal GI/Abdominal exam: Present: normal bowel sounds - Extremities Exam Extremities exam: Present: normal inspection Results - Labs CBC & BMP: 09/08/16 10:10 09/09/16 05:29 Lab Results: I have reviewed the past 24 hour labs Quality Measures - VTE Contraindication to Pharmacological VTE Prophylaxis: High Risk of Bleeding
--- NOTE | 2016-09-09 14:59 | Nephrology Consult Note ---
History of Present Illness Chief complaint: CKD, "renal cyst" History of present illness: Mr. Kim is a 61 year old male admitted with profound anemia, iron deficiency (FeSat 6.5%) and chronic kidney disease stage 3. Anemia out of proportion to degree of renal insufficiency. Hgb 4.7, WBC 6.9, plt 128. FeSAt 6, 5%m Renal u/s: R 9.8cm, L 11.5cm, 1.5cm simple renal cyst left lower pole. Pt does not awaken to verbal stimuli, s/p multiple strokes, bedbound x 9 yrs. at bedside gives the medical history. DM2 with neuropathy, CKD in past, HTN, AAA over 4cm at last check told he was not a surgical candidate, has feeding tube. Advent, no blood products. Home Medications Medication Instructions Recorded Confirmed Type Aspirin EC Tab 81 mg PO QPM 08/06/16 09/05/16 History Ferrous Sulfate 325 mg PO BID 08/06/16 09/05/16 History Finasteride 5 mg PO DAILY 08/06/16 09/05/16 History Isosorbide Mononitrate [Imdur] 30 mg PO DAILY 08/06/16 09/05/16 History Methocarbamol 500 mg PO BID PRN 08/06/16 09/05/16 History Metoprolol Tartrate 50 mg PO TID 08/06/16 09/05/16 History Pregabalin [Lyrica] 225 mg PO BID 08/06/16 09/05/16 History Sertraline [Zoloft] 25 mg PO DAILY 08/06/16 09/05/16 History Tamsulosin [Flomax] 0.4 mg PO DAILY 08/06/16 09/05/16 History Valsartan 80 mg PO QID 08/06/16 09/05/16 History cloNIDine TAB [Catapres Tab] 0.1 mg PO Q4H 08/06/16 09/05/16 History Pantoprazole Tab [Protonix Tab] 40 mg PO DAILY 09/05/16 09/05/16 History Simvastatin 20 mg PO BEDTIME 09/05/16 09/05/16 History Allergies Allergy/AdvReac Type Severity Reaction Status Date / Time No Known Allergies Allergy Verified 09/05/16 15:45 Medical,Surgical,& Family Hx - Medical History Cardio: History of: Aneurysm, Hypertension Psychological: History of: Anxiety Disorders, Depression Neurology: History of: Cerebral Hemorrhage, Cerebrovascular Accident Endocrine: History of: Diabetes Mellitus (NIDDM) Rheumatology: History of;: Rheumatoid Arthritis Genitourinary: History of: Prostate Problems Gastrointestinal: History of: GERD Hematology: History of: Anemia - Surgical History Neurologic Surgeries: Surgical HX of: Cerebral Hemorrhage - Family History Family History: Reports;: Family Diabetes, Family Heart Disease, Family Hypertension - Social History Smoking Status: Never smoker Frequency of Alcohol Use: None Type of Drug Use: None Exam - Vital Signs Vital signs: Period Temp Pulse Resp BP Sys/Crespo Pulse Ox Last 24 Hr 97.6 F-101.5 F 81-111 16-20 102-163/50-79 94-100 - General Appearance General appearance: chronically ill, frail EENT: ATNC, PERRL, mucous membranes dry Neck: no JVD, no thyromegaly Respiratory: no kyphosis, clear Cardiology: no murmurs, no rub Gastrointestinal: normoactive bowel sounds, no tenderness Integumentary: no rash, warm and dry Neurologic: no focal deficit, no asterixis Musculoskeletal: no deformities, no erythema Results - Labs CBC & BMP: 09/08/16 10:10 09/09/16 05:29 Assessment and Plan (1) Renal cyst Problem details: Benign appearing. No further workup indicated at this time. Status: Chronic Current Visit: No (2) Iron deficiency anemia Problem details: Epogen is not effective with FeSat <20%. Anemia is out of proportion to that simply due to eGFR 26cc/min, CKD stage 4. Status: Acute Assessment and plan: Stop oral iron. Poorly absorbed. Start iron sucrose 200mg slow IVP daily x 5 days. Continue Epogen. Current Visit: Yes (3) CKD stage 4 due to type 2 diabetes mellitus Status: Acute Current Visit: Yes (4) Bedbound patient Status: Chronic Current Visit: No (5) Dementia Status: Acute Current Visit: No (6) Diabetes mellitus Status: Chronic Current Visit: No Qualifiers: Diabetes mellitus type: type 2 Diabetes mellitus complication detail: with other kidney complication (7) BPH (benign prostatic hyperplasia) Status: Acute Current Visit: Yes
[2016-09-09] MEDS: IRON SUCROSE 200 MG in SODIUM CHLORIDE 0.9% 100 ML IV SCH (16:09)
--- NOTE | 2016-09-09 17:30 | Consultation ---
Assessment and Plan - Time spent with patient Time spent with patient: Less than 30 minutes (1) Epistaxis Status: Acute Assessment and plan: Bilateral sinus foam packing to promote continued nasal moisturization and prevent excoriation of mucosa and epistaxis in light of his marked anemia. Additionally I asked respiratory to change his oxygen per mask to anything that would allow for humidification to help keep his upper respiratory system moist. If his epistaxis returns or worsens please notify me immediately and I can be more aggressive with packing though in trying to create more nasal damage desired a more prophylactic pack which is what the sinus foam is if we need something more acute please notify me. Thank you very much for this consult I will sign off on this patient by remain available if there is any additional questions or concerns Current Visit: Yes (2) Chronic rhinitis Status: Acute Current Visit: Yes (3) Rhinitis sicca Status: Acute Current Visit: Yes (4) Anemia Status: Chronic Current Visit: No History of Present Illness - Data of Consult Patient: new to practice Consult date: 09/09/16 - Consult Narrative Reason for consult: Epistaxis, anemia History of present illness: Mr. Kim is a 61 year old male with UTI and sepsis and marked anemia with adventist believes precluding transfusion with epistaxis currently controlled and a history of chronic rhinitis Hector and epistaxis ENT is consulted for evaluation and treatment CC: Carrie Longoria MD - Home Medications and Allergies Home Medications: Home Medications Medication Instructions Recorded Confirmed Type Aspirin EC Tab 81 mg PO QPM 08/06/16 09/05/16 History Ferrous Sulfate 325 mg PO BID 08/06/16 09/05/16 History Finasteride 5 mg PO DAILY 08/06/16 09/05/16 History Isosorbide Mononitrate [Imdur] 30 mg PO DAILY 08/06/16 09/05/16 History Methocarbamol 500 mg PO BID PRN 08/06/16 09/05/16 History Metoprolol Tartrate 50 mg PO TID 08/06/16 09/05/16 History Pregabalin [Lyrica] 225 mg PO BID 08/06/16 09/05/16 History Sertraline [Zoloft] 25 mg PO DAILY 08/06/16 09/05/16 History Tamsulosin [Flomax] 0.4 mg PO DAILY 04/12/17 05/12/17 History Valsartan 80 mg PO QID 08/06/16 09/05/16 History cloNIDine TAB [Catapres Tab] 0.1 mg PO Q4H 08/06/16 09/05/16 History Pantoprazole Tab [Protonix Tab] 40 mg PO DAILY 09/05/16 09/05/16 History Simvastatin 20 mg PO BEDTIME 09/05/16 09/05/16 History Allergies/Adverse Reactions: Allergies Allergy/AdvReac Type Severity Reaction Status Date / Time No Known Allergies Allergy Verified 09/05/16 15:45 12 point system: reviewed and no additional remarkable complaints except as stated Medical,Surgical,& Family Hx - Medical History Cardio: History of: Aneurysm, Hypertension Psychological: History of: Anxiety Disorders, Depression Neurology: History of: Cerebral Hemorrhage, Cerebrovascular Accident Endocrine: History of: Diabetes Mellitus (NIDDM) Rheumatology: History of;: Rheumatoid Arthritis Genitourinary: History of: Prostate Problems Gastrointestinal: History of: GERD Hematology: History of: Anemia - Surgical History Neurologic Surgeries: Surgical HX of: Cerebral Hemorrhage - Family History Family History: Reports;: Family Diabetes, Family Heart Disease, Family Hypertension - Social History Smoking Status: Never smoker Frequency of Alcohol Use: None Type of Drug Use: None Exam - Constitutional Vitals: Period Temp Pulse Resp BP Sys/Crespo Pulse Ox Last 24 Hr 97.6 F-99.2 F 81-111 16-20 102-163/50-79 94-100 General appearance: mild distress, other (Very pale lethargic individual) - Head Head exam: Present: normal inspection, normocephalic - ENT ENT exam: Present: normal exam, normal external ear exam, other (Dry mucosa throughout the oral and nasal mucosa, consistent with rhinitis he could have exacerbated by dry oxygen per nasal mask additionally dried epistaxis left nares. And noted marked anemia.) - Neck Neck exam: Present: normal inspection - Respiratory Respiratory exam: Present: other (Very shallow respirations) - GI/Abdominal GI/Abdominal exam: Present: soft (No gross organomegaly or tenderness) - Extremities Exam Extremities exam: Present: normal inspection, other (Pale with slow capillary refill) - Neurological Exam Neurological exam: Present: altered, CN II-XII intact - Psychiatric Psychiatric exam: Present: other (Lethargic) - Skin Skin exam: Present: dry, pallor Results - Labs CBC & BMP: 09/08/16 10:10 09/09/16 05:29 Lab Results: I have reviewed the past 24 hour labs (Marked anemia secondary to chronic disease and to adventist beliefs refuses transfusion) Quality Measures - VTE Contraindication to Pharmacological VTE Prophylaxis: High Risk of Bleeding
[2016-09-09] MEDS: SIMVASTATIN 20 MG TABLET PO SCH (20:12)
[2016-09-09] MEDS: ACETAMINOPHEN 325 MG TABLET PO PRN (20:12)
[2016-09-09] MEDS: ASPIRIN EC 81 MG TABLET PO SCH (20:15)
[2016-09-09] MEDS: INSULIN GLARGINE 100 UNIT/ML SUBCUT SCH (22:17)
[2016-09-10] MEDS: cloNIDine 0.1 MG TABLET PO SCH ×5 (05:57→21:52)
[2016-09-10] MEDS: PIPERACILLIN/TAZOBACTAM 2,250 MG in SODIUM CHLORIDE 0.9% 100 ML IV SCH ×4 (05:57→21:52)
[2016-09-10] MEDS: LEVALBUTEROL 1.25 MG/3 ML NEB RESP TX SCH ×3 (07:25→23:34)
[2016-09-10] MEDS ORDERED: FUROSEMIDE 40 MG/4 ML VIAL IV ONE (08:29)
[2016-09-10] MEDS: ISOSORBIDE MONONITRATE 30 MG TABLET PO SCH ×2 (08:34→23:47)
[2016-09-10] MEDS: METOPROLOL TARTRATE 50 MG TABLET PO SCH ×3 (08:34→21:52)
[2016-09-10] MEDS: amLODIPine 5 MG TABLET PO SCH (08:35)
--- NOTE | 2016-09-10 08:43 | Pulmonology Progress Note ---
Pulmonary - PN: Subj Interval history: The patient is a 61-year-old white man that is a Confucianism and is in very poor condition. He apparently has been bedridden since 2008 when he had CVAs. He came in with low-grade fever and significant weight and some congestion. He has felt to have some pneumonia. He does have bilateral infiltrates. He can not give any history. He is requiring oxygen and gets hypoxemic at times. He has not been able to cough much. His hemoglobin is 4.7 family does not want him to get blood. He does have bilateral infiltrates on his chest x-ray. His VQ scan shows ventilation and perfusion matches and is intermediate and does not show definite emboli. His Dopplers of his legs are negative. Certainly would not treat him with anticoagulation. Today he is a little more awake and moaning some. He is having a little trouble coughing secretions. He has had a low-grade fever. His O2 saturations have been okay. His nasal bleeding has stopped. He continues to have very severe problems. Exam (Progress Note) - Constitutional Vitals: Period Temp Pulse Resp BP Sys/Crespo Pulse Ox Last 24 Hr 97.6 F-100.2 F 81-127 17-20 114-155/53-78 89-100 Exam: General appearance: mild distress (He is more awake today but does have some distress.) - Head Head exam: Present: normal inspection, normocephalic - Eye Eye exam: Present: EOMI. Absent: scleral icterus Pupils: Present: JOVANY - ENT ENT exam: Present: other (He has very pale) - Neck Neck exam: Present: normal inspection. Absent: lymphadenopathy, thyromegaly - Respiratory Respiratory exam: Present: He has coarse breath sounds bilaterally with bilateral rhonchi and rales. His O2 saturation is okay. - Cardiovascular Cardiovascular exam: Present: regular rate and rhythm, systolic murmur (He does have a soft murmur). Absent: gallop - GI/Abdominal GI/Abdominal exam: Present: hypoactive bowel sounds, soft. Absent: organomegaly , tenderness - Extremities Exam Extremities exam: Present: other (Multiple toe amputations). Absent: calf tenderness, edema - Neurological Exam Neurological exam: Present: other (He is more awake today but cannot communicate ) - Psychiatric Psychiatric exam: Absent: anxious - Skin Skin exam: Present: warm, pallor Results - Labs CBC & BMP: 09/08/16 10:10 09/09/16 05:29 Assessment and Plan (1) Anemia Status: Chronic Assessment and plan: The patient has severe anemia and refuses transfusions. Hematology is following. He is doing poorly. His prognosis is terrible. Current Visit: No (2) Pneumonia Status: Acute Assessment and plan: Patient has been treated for aspiration pneumonia. He does have bilateral infiltrates. He does have E. coli ESBL on culture. He is on Zosyn at the present time. He continues to have some chest congestion and respiratory distress and will continue to require oxygen. Current Visit: No Qualifiers: Pneumonia type: aspiration pneumonia Aspiration pneumonia type: due to gastric secretions Laterality: unspecified laterality Lung location: unspecified part of lung Qualified Code(s): J69.0 - Pneumonitis due to inhalation of food and vomit (3) Bedbound patient Status: Chronic Assessment and plan: The patient has had previous CVAs and is bedbound. He is quite debilitated. Current Visit: No (4) History of multiple strokes Status: Chronic Assessment and plan: Patient has had multiple CVAs and is certainly chronically ill. He is bedridden and poorly responsive. He needs to be a DNR. Current Visit: No (5) Diabetes mellitus Status: Chronic Assessment and plan: Glucose is 242 this morning. Current Visit: No Qualifiers: Diabetes mellitus type: type 2 Diabetes mellitus complication detail: with other kidney complication (6) Acute on chronic renal failure Status: Acute Assessment and plan: Creatinine is 2.7 today. Current Visit: Yes (7) Acute respiratory failure Status: Acute Assessment and plan: The patient does have hypoxemia but is responding to oxygen therapy. He does have some chest congestion and will continue with antibiotics and respiratory therapy. His overall prognosis is poor. Current Visit: Yes (8) Altered mental status Status: Acute Assessment and plan: The patient has multi-infarct dementia and is severely debilitated. He has severe anemia along with some pneumonia. He has chronic renal failure. His overall outlook is very very poor. He should not be put on the ventilator. Current Visit: Yes
[2016-09-10 08:59] LABS: ABG Base Excess 0.2 MMOL/L (-2.5-2.5); ABG HCO3 24.4 MMOL/L (20-26); ABG Oxygen Saturation 81.3 % (95-100); ABG PCO2 47.5 MM HG (35-48); ABG PH 7.344 (7.35-7.45); ABG PO2 50.3 MM HG (80-95); ABG TCO2 25.1 MMOL/L (23-27); Allen Test Positive
--- NOTE | 2016-09-10 09:06 | XRay Report ---
Portable chest Date: 09/10/2016 Clinical history: Shortness of breath, congestion Comparison: 09/09/2016 Technique: Portable AP supine chest Findings: Stable cardiomegaly with calcification in the aortic knob. Progressive diffuse parenchymal findings throughout the right lung and in the left lower lung zone with small pleural effusions. Increased hilar density with degenerative changes. Impression: Significant progressive bilateral pneumonia with small bilateral pleural effusions. Follow-up chest x-ray recommended. PROCEDURE INTERPRETED AT [facility] DEPARTMENT OF RADIOLOGY Final Report Signed by: Dr. Danielle Dyer
--- NOTE | 2016-09-10 09:19 | Nephrology Progress Note ---
Nephrology - PN: Subj Interval history: Pt obviously in resp distress on am rounds. Started on IV venofer for severe Fe deficiency first dose yesterday. paO2 50 on ABG. No renal labs ordered. No CBC. Exam (PN)-Nephrology - Vital Signs Vital signs: Period Temp Pulse Resp BP Sys/Crespo Pulse Ox Last 24 Hr 97.6 F-100.2 F 81-127 17-20 114-155/53-78 89-100 - General Appearance General appearance: moderate distress, chronically ill EENT: ATNC, PERRL, mucous membranes moist Neck: no JVD, no thyromegaly Respiratory: no kyphosis, rales Cardiology: no murmurs, no rub Gastrointestinal: normoactive bowel sounds, no tenderness Integumentary: no rash, warm and dry Neurologic: no focal deficit, no asterixis Musculoskeletal: no deformities, no erythema - Lab 09/08/16 10:10 09/09/16 05:29 Most recent lab results ABG pH 7.344 (7.35-7.45) L 09/10/16 08:50 ABG pCO2 47.5 MM HG (35-48) 09/10/16 08:50 ABG pO2 50.3 MM HG (80-95) L 09/10/16 08:50 ABG HCO3 24.4 MMOL/L (20-26) 09/10/16 08:50 ABG O2 Saturation 81.3 % (95-100) L 09/10/16 08:50 Calcium 7.9 MG/DL (8.5-10.1) L 09/09/16 05:29 Phosphorus 4.8 MG/DL (2.5-4.9) 09/08/16 05:41 Magnesium 2.9 MG/DL (1.8-2.4) H 09/08/16 05:41 Assessment and Plan (1) Renal cyst Problem details: Benign appearing. No further workup indicated at this time. Status: Chronic Current Visit: No (2) Iron deficiency anemia Problem details: Epogen is not effective with FeSat <20%. Anemia is out of proportion to that simply due to eGFR 26cc/min, CKD stage 4. Status: Acute Assessment and plan: Continue iron sucrose 200mg slow IVP daily x 5 days total. Continue Epogen. Current Visit: Yes (3) CKD stage 4 due to type 2 diabetes mellitus Problem details: No indication for renal replacement therapy. Pt is not a good chronic dialysis candidate due to comorbidities. Status: Acute Current Visit : Yes (4) Bedbound patient Status: Chronic Current Visit: No (5) Dementia Status: Acute Current Visit: No (6) Diabetes mellitus Status: Chronic Current Visit: No Qualifiers: Diabetes mellitus type: type 2 Diabetes mellitus complication detail: with other kidney complication (7) BPH (benign prostatic hyperplasia) Status: Acute Current Visit: Yes
[2016-09-10] MEDS: INSULIN REGULAR 100 UNIT/ML SUBCUT SCH ×4 (09:21→21:45)
[2016-09-10] MEDS: IRON SUCROSE 200 MG in SODIUM CHLORIDE 0.9% 100 ML IV SCH (09:38)
[2016-09-10] MEDS: EPOETIN ALFA 10,000 UNIT/1 ML VIAL SUBCUT SCH (09:39)
[2016-09-10] MEDS: FOLIC ACID 0.4 MG TABLET PO SCH ×2 (09:42→21:52)
[2016-09-10] MEDS: PANTOPRAZOLE 40 MG TABLET PO SCH (09:42)
[2016-09-10] MEDS: CYANOCOBALAMIN 500 MCG TABLET PO SCH ×2 (09:42→21:52)
[2016-09-10] MEDS: BACITRACIN OINT 0.9 GM PACK TOP SCH (09:42)
[2016-09-10] MEDS: SERTRALINE 25 MG TABLET PO SCH (09:42)
[2016-09-10] MEDS: FINASTERIDE 5 MG TABLET PO SCH (09:42)
[2016-09-10] MEDS: DESITIN 4OZ/NYSTATIN 15 GRAM MIXTURE PASTE TOP SCH ×2 (09:42→21:53)
[2016-09-10] MEDS: TAMSULOSIN 0.4 MG CAPSULE PO SCH (09:42)
--- NOTE | 2016-09-10 11:16 | Hospitalist Progress Note ---
Assessment and Plan (1) Acute on chronic renal failure Status: Acute Assessment and plan: USS-simple cyst on the left pole.This is not improving.We will transfer to the unit Follow nephrology consult Current Visit: Yes (2) Hyperkalemia Status: Acute Assessment and plan: of 5.6, most likely due to RF Improved Current Visit: Yes (3) Anemia Status: Chronic Assessment and plan: of chronic disease.Patient is a Restorationism.H/H is dropping, no clinical evidence of an acute bleed. Patient will not allow blood transfusion, open to expanders.Hem/Onc has seen and they have recommended to continue with Epogen and Fe supplements.His condition is getting worse. We have limited blood drawn in order to conserve what he has. He will be going to the unit for closer monitoring, his sister insist on full code. H/H today improved a lit bit to 5.5/18.4 prognosis is not good Current Visit: No (4) Hypertension Status: Chronic Assessment and plan: stable Current Visit: No Qualifiers: Hypertension type: essential hypertension Qualified Code(s): I10 - Essential (primary) hypertension (5) Diabetes mellitus Status: Chronic Assessment and plan: Continue current regime. HbA1c level-4.2 Current Visit: No Qualifiers: Diabetes mellitus type: type 2 Diabetes mellitus complication detail: with other kidney complication (6) History of multiple strokes Status: Chronic Assessment and plan: resulting in right hemiplegia and dysarthria, bed bound -Good Nursing care Current Visit: No (7) Dementia Status: Acute Assessment and plan: most likely resulting from multiple strokes Current Visit: No (8) BPH (benign prostatic hyperplasia) Status: Acute Assessment and plan: continue with meds Current Visit: Yes (9) Leg ulcer Status: Acute Assessment and plan: continue wound care Current Visit: Yes (10) History of abdominal aortic aneurysm Status: Acute Assessment and plan: clinically stable Current Visit: Yes (11) Acute respiratory failure Status: Acute Assessment and plan: most likely due to pneumonia, will treat as HAP vs Aspiration.. We suspect PE- high Ddimers, intermediate probability on VQ, patient has severe anemia and being a Jehovah's withness, transfusion is not an option, it is difficult to start anticoagulation. Dopplers were negative for DVT. Sputum grew gram negative rods.Appreciates Pulm's consult. Plan -continue Zosyn and Levaquin -continue nebs treatment -Intubate patient- Patient is tiring out -follow Pulm's recommendations Current Visit: Yes (12) Altered mental status Status: Acute Assessment and plan: CT head was negative.Ammonia is normal. Cardiac enzymes are negative. Plan -Continue to Hold all sedatives- Robaxin and lyrica Current Visit: Yes (13) Pneumonia Status: Acute Assessment and plan: HAP vs Aspiration pneumonia.Recent CXR showed significant progressive bilateral pneumonia with small bilateral pleural effusions. Sputum grew [id number] to Levaquin Plan continue with IV Zosyn Current Visit: No Qualifiers: Pneumonia type: aspiration pneumonia Aspiration pneumonia type: due to gastric secretions Laterality: unspecified laterality Lung location: unspecified part of lung Qualified Code(s): J69.0 - Pneumonitis due to inhalation of food and vomit Hospitalist: Subjective Interval history: Patient became dyspneic, less responsive this am.. His sister still insisted she wanted everything done but no blood transfusion.We explained that patient's condition was really serious, has a poor outcome, and that the prognosis was even worse without transfusion.She states full understanding. Patient will be going to the unit for closer monitoring and we will intubate patient because he is tiring out..CXR this am showed progressive bilateral pneumonia and bilateral effusion. Exam - Constitutional Vitals: Period Temp Pulse Resp BP Sys/Crespo Pulse Ox Last 24 Hr 97.6 F-100.2 F 81-127 17-20 114-155/53-78 89-100 General appearance: severe distress, other (paper white pale) - Respiratory Respiratory exam: Present: other (reduced breath sounds) - Cardiovascular Cardiovascular exam: Present: regular rate and rhythm - GI/Abdominal GI/Abdominal exam: Present: normal bowel sounds - Extremities Exam Extremities exam: Present: edema Results - Labs CBC & BMP: 09/10/16 15:36 09/09/16 05:29 Lab Results: I have reviewed the past 24 hour labs Quality Measures - VTE Contraindication to Pharmacological VTE Prophylaxis: High Risk of Bleeding
[2016-09-10 11:28] LABS: Apearance,Urine CLOUDY (Clear); Bilirubin,Urine Negative (Negative); Blood, Urine Small mg/dL (Negative); Glucose,Urine (UA) Negative (Negative); Ketones,Urine Negative (Negative); Nitrite,Urine Negative (Negative); Protein,Urine 100 MG/DL; RBC,Urine 34 /HPF (0-4); Squamous Epithelial Cell,Urine Occasional /HPF (0-10); Urine Color Yellow (Yellow); Urine Specific Gravity 1.006 (1.001-1.035); Urine Urobilinogen < 2.0 EU/DL (0.2-1.0); WBC,Urine 319 /HPF (0-6)
--- NOTE | 2016-09-10 14:33 | Physician Query Form ---
CLICK EDIT DOCUMENT TO SELECT QUERY ANSWER --> OK --> SIGN Ree Hendrickson RN Clinical System Support Administrator W) [phone] (f) [phone] [email or web address] PROVIDERS: Make your selection(s) from the choices in EACH section by typing an "x" and enter comments in the comment section. Please use your independent medical judgment in providing your response. This request does not imply that any particular answer is desired or expected. CLINICAL INDICATORS: (Providers should not edit this section) Based on documentation of "acute pneumonia" and "Sputum grew gram negative rods.Sputum grew E.Coli-ESBL". Pt. has also been treated for aspiration pneumonia. Pt. treated with IV Zosyn. Community Acquired and Healthcare Acquired are both unspecified terms and require further specificity. Based on the above, could you please clarify further specificity regarding the type of pneumonia you are treating (even if specific organism may not be known) ? (x ) Gram negative pneumonia ( ) Bacterial pneumonia due to, please specify organism (if known): ( ) Aspiration pneumonia ( ) Pneumonia due to, please specify: ( ) Clinically unable to determine ( ) Other, please specify: COMMENTS: PLEASE ALSO DOCUMENT RESPONSE IN PROGRESS NOTES AND/OR DISCHARGE SUMMARY Use of terms such as suspected, likely, or probable (associated with a specific diagnosis that is being evaluated, monitored, or treated as if it exists) are acceptable and can be restated in the discharge summary if not ruled out. MTDD
--- NOTE | 2016-09-10 14:36 | Physician Query Form ---
CLICK EDIT DOCUMENT TO SELECT QUERY ANSWER --> OK --> SIGN Ree Hendrickson RN Clinical Metalizing Supervisor W) [phone] (f) [phone] [email or web address] PROVIDERS: Make your selection(s) from the choices in EACH section by typing an "x" and enter comments in the comment section. Please use your independent medical judgment in providing your response. This request does not imply that any particular answer is desired or expected. CLINICAL INDICATORS: (Providers should not edit this section) Based on documentation of "The patient has had previous CVAs and is bedbound". Nurse notes state patient has urinary incontinence, limited range of motion, muscle weakness, and requires total care with feeding and hygiene. Which, if any, of the following is an etiology of the above abnormalities and treatment rendered: ( ) Functional quadriplegia (complete immobility due to severe physical disability or frailty due to non-neurologic cause) ( x) Quadriplegia due to a neurologic cause, please specify: ( ) Paraplegia due to a neurologic cause, please specify: ( ) Hemiplegia/hemiparesis due to a neurologic cause, please specify: ( ) Complete Immobility (due to frailty or severe physical disability) ( ) Persistent vegetative state ( ) Critical illness myopathy (difficulty weaning patients from mechanical ventilation or prolonged recovery after illness) ( ) General weakness ( ) Other cause, please specify: ( ) Clinically unable to determine COMMENTS: PLEASE ALSO DOCUMENT RESPONSE IN PROGRESS NOTES AND/OR DISCHARGE SUMMARY Use of terms such as suspected, likely, or probable (associated with a specific diagnosis that is being evaluated, monitored, or treated as if it exists) are acceptable and can be restated in the discharge summary if not ruled out. MTDD
[2016-09-10] MEDS ORDERED: ETOMIDATE 20 MG/10 ML VIAL IV ONE ×2 (15:28→15:51)
[2016-09-10] MEDS ORDERED: SUCCINYLCHOLINE 200 MG/10 ML VIAL ONE (15:28)
[2016-09-10 15:49] LABS: Hematocrit 18.4 VOL% (42.0-52.0)
--- NOTE | 2016-09-10 15:49 | Anesthesia Procedures ---
Anesthesia Procedures - Intubation Time out performed intubation: Yes Sedative: Etomidate (16mg) Mg given sedative: 16 Paralytic: Rocuronium Mg given paralytic: 100 Laryngoscope: Cervantes ET Tube Size: 8 ET Tube Uncuffed: No Tube Secured Depth (cm): 23 Tube Secured Location: lips Tube Placement Confirmation: visualized tube passing through cords, equal breath sounds bilaterally, no breath sounds over epigastrium, confirmation detector color change Patient tolerated procedure intubation: well Intubation Complications: none
[2016-09-10] MEDS ORDERED: PROPOFOL 200 MG/20 ML VIAL IV ONE (15:51)
[2016-09-10] MEDS ORDERED: ROCURONIUM 100 MG/10 ML VIAL IV ONE (15:51)
[2016-09-10 15:56] LABS: Hemoglobin 5.5 GM/DL (14.0-18.0)
[2016-09-10] MEDS: PROPOFOL 1,000 MG/100 ML BOTTLE IV SCH (16:00)
[2016-09-10] MEDS: FUROSEMIDE 40 MG/4 ML VIAL IV SCH (16:01)
--- NOTE | 2016-09-10 16:09 | XRay Report ---
XR chest 1V portable Indication: Mechanical ventilation Comparison: 10 Sep 2016 at 8:32 AM Findings: The heart and mediastinum are stable in size and configuration. Endotracheal tube tip is between the alfreda and clavicles. The pulmonary vascularity is shifted and now has increased on the right and improved on the left. There is increased right lung density. No other lung infiltrates, effusions, pneumothorax or other abnormality is demonstrated. Impression: Endotracheal tube position appears within normal limits. Shifting areas of pulmonary density may indicate positional edema. PROCEDURE INTERPRETED AT [facility] DEPARTMENT OF RADIOLOGY Final Report Signed by: Dr. Calixto Cedeno
[2016-09-10] MEDS: hydrALAZINE 20 MG/1 ML VIAL IV PRN (17:10)
[2016-09-10] MEDS: ASPIRIN EC 81 MG TABLET PO SCH (18:01)
[2016-09-10] MEDS: SIMVASTATIN 20 MG TABLET PO SCH (21:52)
[2016-09-10] MEDS: ISOSORBIDE DINITRATE 20 MG TABLET PEG SCH (21:52)
[2016-09-10] MEDS: INSULIN GLARGINE 100 UNIT/ML SUBCUT SCH (21:52)
[2016-09-11 04:00] LABS: ABG Base Excess 4.3 MMOL/L (-2.5-2.5); ABG HCO3 28.4 MMOL/L (20-26); ABG TCO2 25.7 MMOL/L (23-27); Allen Test Positive; Pt O2 Delivery Device Ventilator
[2016-09-11 04:11] LABS: ABG PH 7.626 (7.35-7.45)
[2016-09-11] MEDS: PROPOFOL 1,000 MG/100 ML BOTTLE IV SCH ×2 (04:40→15:07)
[2016-09-11 05:38] LABS: Eosinophils # 1.4 10*3/uL (0.0-0.87); Eosinophils % 17.8 % (0.00-10.9); Immature Granulocytes % 0.5 %; Immature Granulocytes Absolute 0.04 #; Lymphocytes # 0.9 10*3/uL (1.4-4.0); Lymphocytes % 10.8 % (21.2-54.2); Mean Corpuscular HGB Conc 30.4 GM/DL (32-36); Mean Corpuscular Hemoglobin 26 PG (27-34); Mean Corpuscular Volume 86.3 FL (87-102); Mean Platelet Volume 13.4 FL (9.6-12.0); Monocytes # 0.6 10*3/uL (0.11-0.8); Monocytes % 7.1 % (1.7-12.7); NRBC # 0.04 10*3/uL; Neutrophils % 63.8 % (38.7-73.9); Platelet Count 164 T/CUMM (130-400); Red Cell Distribution Width 19.6 % (9.3-17.3); White Blood Count 7.9 T/CUMM (4-12)
[2016-09-11 05:48] LABS: Hemoglobin 4.2 GM/DL (14.0-18.0)
[2016-09-11 05:49] LABS: Hematocrit 13.8 VOL% (42.0-52.0)
[2016-09-11 06:02] LABS: Calcium 8.2 MG/DL (8.5-10.1); Osmolality,Calculated 303.4 MOS/KG (273-304); Potassium 4.4 MMOL/L (3.5-5.1)
[2016-09-11 06:04] LABS: Band Neutrophils 5 % (0-10); Eosinophils 19 % (0-10); Hypochromasia 1+; Lymphocytes 12 % (20-55); Segmented Neutrophils 60 % (50-85); Total Cells Counted 100
[2016-09-11 06:05] LABS: Microcytosis 1+; Platelet Estimate Adequate
[2016-09-11 06:09] LABS: Magnesium 3.4 MG/DL (1.8-2.4); Phosphorous 3.5 MG/DL (2.5-4.9); Prealbumin 13.9 MG/DL (20-40)
[2016-09-11] MEDS: PIPERACILLIN/TAZOBACTAM 2,250 MG in SODIUM CHLORIDE 0.9% 100 ML IV SCH ×2 (06:10→14:54)
[2016-09-11] MEDS: cloNIDine 0.1 MG TABLET PO SCH ×5 (06:10→21:27)
[2016-09-11] MEDS: LEVALBUTEROL 1.25 MG/3 ML NEB RESP TX SCH ×3 (06:49→23:12)
--- NOTE | 2016-09-11 07:00 | XRay Report ---
Exam: XR chest 1V portable Date: 09/11/2016 4:00 AM Indication: Follow-up ventilator respiratory failure Comparison: 09/10/2016 Findings: Endotracheal tube is at the level aortic knob. Mild prominence the cardiac silhouette with tiny low volume left effusion and improving alveolar edema effusion and the right lung. No pneumothorax. ASVD is present. Impression: 1. Stable appearance the endotracheal tube 2. Improving aeration with decreasing alveolar edema and infiltrate and effusion right lung with small residual effusion in the left base and minimal atelectasis PROCEDURE INTERPRETED AT [facility] DEPARTMENT OF RADIOLOGY Final Report Signed by: Dr. Cayetano Hayden
--- NOTE | 2016-09-11 07:19 | Pulmonology Progress Note ---
Pulmonary - PN: Subj Interval history: The patient is a 61-year-old white man that is a [employer] and is in very poor condition. He apparently has been bedridden since 2008 when he had CVAs. He came in with low-grade fever and significant weight and some congestion. He has felt to have some pneumonia. He does have bilateral infiltrates. He can not give any history. He is requiring oxygen and gets hypoxemic at times. He has not been able to cough much. His hemoglobin is 4.7 family does not want him to get blood. He does have bilateral infiltrates on his chest x-ray. His VQ scan shows ventilation and perfusion matches and is intermediate and does not show definite emboli. His Dopplers of his legs are negative. Certainly would not treat him with anticoagulation. Yesterday the patient had more respiratory distress and had bilateral infiltrates. He was intubated and is on the ventilator. His oxygenation is better and is actually looks better today. His hemoglobin is down to 4.2 and his creatinine is up to 3. His urine output is on the low side. We will cautiously rehydrate. Exam (Progress Note) - Constitutional Vitals: Period Temp Pulse Resp BP Sys/Crespo Pulse Ox Last 24 Hr 96.9 F-98.9 F 86-109 12-22 71-200/36-94 93-100 Exam: General appearance: the patient is now sedated on the ventilator and is stable. - Head Head exam: Present: normal inspection, normocephalic - Eye Eye exam: Present: EOMI. Absent: scleral icterus Pupils: Present: JOVANY - ENT ENT exam: Present: other (He has very pale) he has an ET tube in place. - Neck Neck exam: Present: normal inspection. Absent: lymphadenopathy, thyromegaly - Respiratory Respiratory exam: Present: He has equal breath sounds bilaterally in the lungs sound a little clearer. - Cardiovascular Cardiovascular exam: Present: regular rate and rhythm, systolic murmur (He does have a soft murmur). Absent: gallop - GI/Abdominal GI/Abdominal exam: Present: hypoactive bowel sounds, soft. Absent: organomegaly , tenderness - Extremities Exam Extremities exam: Present: other (Multiple toe amputations). Absent: calf tenderness, edema - Neurological Exam Neurological exam: Present: other (He is sedated on the ventilator now.) - Psychiatric Psychiatric exam: Absent: anxious - Skin Skin exam: Present: warm, pallor Results - Labs CBC & BMP: 09/11/16 04:42 09/11/16 04:42 Labs: PO2 is 487 with a PCO2 of 25 and a pH of 7.6 - Diagnostic Findings Procedure: Chest x-ray: image reviewed by me, report reviewed by me (Chest x- ray shows improved infiltrates.) Assessment and Plan (1) Anemia Status: Chronic Assessment and plan: The patient has severe anemia and refuses transfusions. Hematology is following. He is doing poorly. His prognosis is terrible. Current Visit: No (2) Pneumonia Status: Acute Assessment and plan: Patient has been treated for aspiration pneumonia. He does have bilateral infiltrates. He does have E. coli ESBL on culture. He is on Zosyn at the present time. He had worsening respiratory distress yesterday and was intubated. His oxygenation is better on the ventilator. Current Visit: No Qualifiers: Pneumonia type: aspiration pneumonia Aspiration pneumonia type: due to gastric secretions Laterality: unspecified laterality Lung location: unspecified part of lung Qualified Code(s): J69.0 - Pneumonitis due to inhalation of food and vomit (3) Bedbound patient Status: Chronic Assessment and plan: The patient has had previous CVAs and is bedbound. He is quite debilitated. Current Visit: No (4) History of multiple strokes Status: Chronic Assessment and plan: Patient has had multiple CVAs and is certainly chronically ill. He is bedridden and poorly responsive. He needs to be a DNR. Current Visit: No (5) Diabetes mellitus Status: Chronic Assessment and plan: Glucose is 121 this morning. Current Visit: No Qualifiers: Diabetes mellitus type: type 2 Diabetes mellitus complication detail: with other kidney complication (6) Acute on chronic renal failure Status: Acute Assessment and plan: Creatinine is 3.0 today. Current Visit: Yes (7) Acute respiratory failure Status: Acute Assessment and plan: The patient is now sedated on the ventilator. His oxygenation is better. Will adjust his ventilator. His prognosis is very poor. Current Visit: Yes (8) Altered mental status Status: Acute Assessment and plan: The patient has multi-infarct dementia and is severely debilitated. He has severe anemia along with some pneumonia. He has chronic renal failure. His overall outlook is very very poor. Now is on the ventilator and has a very poor prognosis . Current Visit: Yes
[2016-09-11] MEDS: FUROSEMIDE 40 MG/4 ML VIAL IV SCH ×2 (08:39→15:16)
[2016-09-11] MEDS: FINASTERIDE 5 MG TABLET PO SCH (08:41)
[2016-09-11] MEDS: FOLIC ACID 0.4 MG TABLET PO SCH ×2 (08:41→21:59)
[2016-09-11] MEDS: DESITIN 4OZ/NYSTATIN 15 GRAM MIXTURE PASTE TOP SCH ×2 (08:41→22:00)
[2016-09-11] MEDS: CYANOCOBALAMIN 500 MCG TABLET PO SCH ×2 (08:41→21:59)
[2016-09-11] MEDS: BACITRACIN OINT 0.9 GM PACK TOP SCH (08:41)
[2016-09-11] MEDS: SERTRALINE 25 MG TABLET PO SCH (08:41)
[2016-09-11] MEDS: METOPROLOL TARTRATE 50 MG TABLET PO SCH ×3 (08:42→21:27)
[2016-09-11] MEDS: PANTOPRAZOLE 40 MG TABLET PO SCH (08:42)
[2016-09-11] MEDS: amLODIPine 5 MG TABLET PO SCH (08:42)
[2016-09-11] MEDS: INSULIN REGULAR 100 UNIT/ML SUBCUT SCH ×4 (08:43→22:02)
[2016-09-11] MEDS: TAMSULOSIN 0.4 MG CAPSULE PO SCH (08:43)
[2016-09-11] MEDS: ISOSORBIDE DINITRATE 20 MG TABLET PEG SCH ×3 (08:47→21:27)
--- NOTE | 2016-09-11 09:00 | Hospitalist Progress Note ---
Assessment and Plan (1) Pneumonia Status: Acute Assessment and plan: 1)acute respiratory failure- due to pneumonia and anemia. On vent, requiring less O2 today. 2)pneumonia- on Zosyn. CXR looks better after intubation with less edema/ infiltrate. some effusions. 3)anemia- iron deficiency. on epogen, iron. refuses transfusion and counts continue to drop. 4)neuro- coma now- due to anemia, pneumonia. may have anoxic brain injury from anemia. 5)ANT on CKD- creatinine up today with decreased UOP. gently rehydrating. 6)dispo- remains full code. Current Visit: No Qualifiers: Pneumonia type: aspiration pneumonia Aspiration pneumonia type: due to gastric secretions Laterality: unspecified laterality Lung location: unspecified part of lung Qualified Code(s): J69.0 - Pneumonitis due to inhalation of food and vomit (2) Bedbound patient Status: Chronic Current Visit: No (3) History of multiple strokes Status: Chronic Current Visit: No (4) Diabetes mellitus Status: Chronic Current Visit: No Qualifiers: Diabetes mellitus type: type 2 Diabetes mellitus complication detail: with other kidney complication (5) Hyperkalemia Status: Acute Current Visit: Yes (6) Acute respiratory failure Status: Acute Current Visit: Yes (7) Altered mental status Status: Acute Current Visit: Yes (8) CKD stage 4 due to type 2 diabetes mellitus Problem details: No indication for renal replacement therapy. Pt is not a good chronic dialysis candidate due to comorbidities. Status: Acute Current Visit : Yes (9) Iron deficiency anemia Problem details: Epogen is not effective with FeSat <20%. Anemia is out of proportion to that simply due to eGFR 26cc/min, CKD stage 4. Status: Acute Current Visit: Yes Hospitalist: Subjective Interval history: Mr Kim was intubated yesterday. His oxygenation has improved and he is now on 50% FIO2. He remains unresponsive for the most part though his eyes fluttered when I was examining him. His sister refuses blood transfusion but wants everything else done. His UOP has decreased with increase in creatinine and his hgb is 4. Exam - Constitutional Vitals: Period Temp Pulse Resp BP Sys/Crespo Pulse Ox Last 24 Hr 96.9 F-98.2 F 86-105 12-22 71-200/36-94 93-100 General appearance: normal weight, no acute distress (coma) - Head Head exam: Present: normocephalic, atraumatic - Eye Eye exam: Present: EOMI, other (conjunctivae pale) - Respiratory Respiratory exam: Present: clear to auscultation bilaterally - Cardiovascular Cardiovascular exam: Present: regular rate and rhythm - GI/Abdominal GI/Abdominal exam: Present: normal bowel sounds, soft. Absent: tenderness - Extremities Exam Extremities exam: Absent: edema - Neurological Exam Neurological exam: Present: altered (comatose since yesterday) - Skin Skin exam: Present: warm, dry Results - Labs CBC & BMP: 09/11/16 04:42 09/11/16 04:42 Lab Results: I have reviewed the past 24 hour labs Quality Measures - VTE Contraindication to Pharmacological VTE Prophylaxis: High Risk of Bleeding
--- NOTE | 2016-09-11 09:48 | Nephrology Progress Note ---
Nephrology - PN: Subj Interval history: Over night events noted. Transferred to CCU and intubated for hypoxic rest failure. UOP decreased. Hgb not improved yet. Pt examined, nursing staff interviewed. Creatinine 3. CKD 4. Exam (PN)-Nephrology - Vital Signs Vital signs: Period Temp Pulse Resp BP Sys/Crespo Pulse Ox Last 24 Hr 96.9 F-98.2 F 86-105 12-22 71-200/36-94 93-100 - General Appearance General appearance: sedated on ventilator, intubated EENT: ATNC, PERRL Neck: no JVD, no thyromegaly Respiratory: no kyphosis, rales Cardiology: no murmurs, no rub Gastrointestinal: normoactive bowel sounds, no tenderness Integumentary: no rash, warm and dry Neurologic: obtunded Musculoskeletal: no deformities, no erythema - Lab 09/11/16 04:42 09/11/16 04:42 Most recent lab results ABG pH 7.626 (7.35-7.45) H* 09/11/16 03:40 ABG pCO2 25.0 MM HG (35-48) L 09/11/16 03:40 ABG pO2 487.0 MM HG (80-95) H 09/11/16 03:40 ABG HCO3 28.4 MMOL/L (20-26) H 09/11/16 03:40 ABG O2 Saturation 100.0 % (95-100) 09/11/16 03:40 Calcium 8.2 MG/DL (8.5-10.1) L 09/11/16 04:42 Phosphorus 3.5 MG/DL (2.5-4.9) 09/11/16 04:42 Magnesium 3.4 MG/DL (1.8-2.4) H 09/11/16 04:42 Assessment and Plan (1) Renal cyst Problem details: Benign appearing. No further workup indicated at this time. Status: Chronic Current Visit: No (2) Iron deficiency anemia Problem details: Continue venofer 200mg slow IVP daily, continue epogen. Status: Acute Assessment and plan: Continue iron sucrose 200mg slow IVP daily x 5 days total. Continue Epogen. Current Visit: Yes (3) CKD stage 4 due to type 2 diabetes mellitus Problem details: No indication for renal replacement therapy. Pt is not a good chronic dialysis candidate due to comorbidities. Status: Acute Current Visit : Yes (4) Bedbound patient Status: Chronic Current Visit: No (5) Dementia Status: Acute Current Visit: No (6) Diabetes mellitus Status: Chronic Current Visit: No Qualifiers: Diabetes mellitus type: type 2 Diabetes mellitus complication detail: with other kidney complication (7) BPH (benign prostatic hyperplasia) Status: Acute Current Visit: Yes
[2016-09-11] MEDS ORDERED: SODIUM CHLORIDE 0.9% 250 ML IV PRN (10:51)
[2016-09-11] MEDS: IRON SUCROSE 200 MG in SODIUM CHLORIDE 0.9% 100 ML IV SCH (11:15)
[2016-09-11] MEDS: ASPIRIN EC 81 MG TABLET PO SCH (18:14)
[2016-09-11] MEDS: INSULIN GLARGINE 100 UNIT/ML SUBCUT SCH (21:59)
[2016-09-11] MEDS: SIMVASTATIN 20 MG TABLET PO SCH (22:00)
[2016-09-12] MEDS: PIPERACILLIN/TAZOBACTAM 2,250 MG in SODIUM CHLORIDE 0.9% 100 ML IV SCH ×4 (00:22→22:07)
[2016-09-12] MEDS: hydrALAZINE 20 MG/1 ML VIAL IV PRN (00:23)
[2016-09-12 02:57] LABS: ABG Base Excess 2.3 MMOL/L (-2.5-2.5); ABG HCO3 26.5 MMOL/L (20-26); ABG Oxygen Saturation 99.2 % (95-100); ABG PCO2 44.9 MM HG (35-48); ABG PH 7.392 (7.35-7.45); ABG TCO2 26.6 MMOL/L (23-27); Allen Test Positive; Pt O2 Delivery Device Ventilator
[2016-09-12] MEDS: cloNIDine 0.1 MG TABLET PO SCH ×5 (05:38→22:07)
[2016-09-12] MEDS: PROPOFOL 1,000 MG/100 ML BOTTLE IV SCH ×3 (06:47→20:00)
--- NOTE | 2016-09-12 07:00 | XRay Report ---
Portable chest Date: 09/12/2016 Clinical history: Ventilator Comparison: 09/11/2016 Technique: Portable AP sitting chest Findings: The heart is borderline in size with stable endotracheal tube. Progressive diffuse parenchymal findings in the right lung with minimal shift of the mediastinum to the right. Larger right pleural effusion. Similar decrease findings at the left lung base. Stable degenerative changes.. Impression: Progressive infiltration/edema/atelectasis in the right lung with associated shift of mediastinum to the right and enlarging small right pleural effusion. Similar decrease findings at the left lung base. The endotracheal tube remains in satisfactory position. PROCEDURE INTERPRETED AT [facility] DEPARTMENT OF RADIOLOGY Final Report Signed by: Dr. Danielle Dyer
[2016-09-12] MEDS: LEVALBUTEROL 1.25 MG/3 ML NEB RESP TX SCH ×2 (07:38→14:20)
--- NOTE | 2016-09-12 08:13 | Pulmonology Progress Note ---
Pulmonary - PN: Subj Interval history: The patient is a 61-year-old white man that is a [employer] and is in very poor condition. He apparently has been bedridden since 2008 when he had CVAs. He came in with low-grade fever and significant weight and some congestion. He has felt to have some pneumonia. He does have bilateral infiltrates. He can not give any history. He is requiring oxygen and gets hypoxemic at times. He has not been able to cough much. His hemoglobin is 4.7 family does not want him to get blood. He does have bilateral infiltrates on his chest x-ray. His VQ scan shows ventilation and perfusion matches and is intermediate and does not show definite emboli. His Dopplers of his legs are negative. Certainly would not treat him with anticoagulation. The patient developed worsening respiratory failure and was placed on the ventilator. He has been fairly stable on the ventilator. His oxygenation has improved and his chest x-ray does look better. He has a slight right lung infiltrate. His blood pressure has been reasonably stable. He arouses but does not follow commands very well. Exam (Progress Note) - Constitutional Vitals: Period Temp Pulse Resp BP Sys/Crespo Pulse Ox Last 24 Hr 97 F-98.7 F 82-114 12-14 91-184/46-102 91-100 Exam: General appearance: the patient is now sedated on the ventilator and is stable. - Head Head exam: Present: normal inspection, normocephalic - Eye Eye exam: Present: EOMI. Absent: scleral icterus Pupils: Present: JOVANY - ENT ENT exam: Present: other (He has very pale) he has an ET tube in place. - Neck Neck exam: Present: normal inspection. Absent: lymphadenopathy, thyromegaly - Respiratory Respiratory exam: Present: He has equal breath sounds bilaterally but he does have some rhonchi present. - Cardiovascular Cardiovascular exam: Present: regular rate and rhythm, systolic murmur (He does have a soft murmur). Absent: gallop - GI/Abdominal GI/Abdominal exam: Present: hypoactive bowel sounds, soft. Absent: organomegaly , tenderness - Extremities Exam Extremities exam: Present: other (Multiple toe amputations). Absent: calf tenderness, edema - Neurological Exam Neurological exam: Present: other (He is sedated on the ventilator now. He does arouse okay.) - Psychiatric Psychiatric exam: Absent: anxious - Skin Skin exam: Present: warm, pallor Results - Labs CBC & BMP: 09/11/16 04:42 09/11/16 04:42 Labs: His PO2 is 117 with a PCO2 of 44 and a pH of 7.39 - Diagnostic Findings Procedure: Chest x-ray: image reviewed by me, report reviewed by me (Chest x- ray has a mild right lower lobe infiltrate.) Assessment and Plan (1) Anemia Status: Chronic Assessment and plan: The patient has severe anemia and refuses transfusions. Hematology is following. His last hemoglobin was 4.2. Current Visit: No (2) Pneumonia Status: Acute Assessment and plan: Patient has been treated for aspiration pneumonia. He does have bilateral infiltrates. He does have E. coli ESBL on culture. He is on Zosyn at the present time. His oxygenation has improved on the ventilator and his chest x- ray is improving. Current Visit: No Qualifiers: Pneumonia type: aspiration pneumonia Aspiration pneumonia type: due to gastric secretions Laterality: unspecified laterality Lung location: unspecified part of lung Qualified Code(s): J69.0 - Pneumonitis due to inhalation of food and vomit (3) Bedbound patient Status: Chronic Assessment and plan: The patient has had previous CVAs and is bedbound. He is quite debilitated. He basically has multi-infarct dementia. Current Visit: No (4) History of multiple strokes Status: Chronic Assessment and plan: Patient has had multiple CVAs and is certainly chronically ill. He is bedridden and poorly responsive. He does arouse a little bit on the ventilator. Current Visit: No (5) Diabetes mellitus Status: Chronic Assessment and plan: Glucose is 114 this morning. Current Visit: No Qualifiers: Diabetes mellitus type: type 2 Diabetes mellitus complication detail: with other kidney complication (6) Acute on chronic renal failure Status: Acute Assessment and plan: Creatinine is 3.0 at last check. Current Visit: Yes (7) Acute respiratory failure Status: Acute Assessment and plan: The patient is now sedated on the ventilator. His oxygenation is better. He is fairly stable on the ventilator. Will adjust his ventilator start weaning trials. Current Visit: Yes (8) Altered mental status Status: Acute Assessment and plan: The patient has multi-infarct dementia and is severely debilitated. He has severe anemia along with some pneumonia. He has chronic renal failure. His overall outlook is very very poor. Now is on the ventilator and has a very poor prognosis . Current Visit: Yes
[2016-09-12] MEDS: INSULIN REGULAR 100 UNIT/ML SUBCUT SCH ×4 (08:36→21:17)
[2016-09-12] MEDS: FUROSEMIDE 40 MG/4 ML VIAL IV SCH ×2 (09:48→17:19)
[2016-09-12] MEDS: PANTOPRAZOLE 40 MG TABLET PO SCH (09:48)
[2016-09-12] MEDS: ISOSORBIDE DINITRATE 20 MG TABLET PEG SCH ×3 (09:49→21:17)
[2016-09-12] MEDS: FOLIC ACID 0.4 MG TABLET PO SCH ×2 (09:49→21:17)
[2016-09-12] MEDS: SERTRALINE 25 MG TABLET PO SCH (09:49)
[2016-09-12] MEDS: amLODIPine 5 MG TABLET PO SCH (09:49)
[2016-09-12] MEDS: CYANOCOBALAMIN 500 MCG TABLET PO SCH ×2 (09:49→21:18)
[2016-09-12] MEDS: TAMSULOSIN 0.4 MG CAPSULE PO SCH (09:49)
[2016-09-12] MEDS: METOPROLOL TARTRATE 50 MG TABLET PO SCH ×3 (09:49→21:18)
[2016-09-12] MEDS: IRON SUCROSE 200 MG in SODIUM CHLORIDE 0.9% 100 ML IV SCH (09:49)
[2016-09-12] MEDS: FINASTERIDE 5 MG TABLET PO SCH (09:49)
[2016-09-12] MEDS: DESITIN 4OZ/NYSTATIN 15 GRAM MIXTURE PASTE TOP SCH ×2 (09:50→21:18)
[2016-09-12] MEDS: BACITRACIN OINT 0.9 GM PACK TOP SCH (09:50)
[2016-09-12] MEDS: EPOETIN ALFA 10,000 UNIT/1 ML VIAL SUBCUT SCH (09:50)
--- NOTE | 2016-09-12 10:35 | Nephrology Progress Note ---
Nephrology - PN: Subj Interval history: UOP improved. No renal labs. Resp status improved on vent. Unresponsive to verbal stimuli or exam. Hgb 4.2 yesterday. Exam (PN)-Nephrology - Vital Signs Vital signs: Period Temp Pulse Resp BP Sys/Crespo Pulse Ox Last 24 Hr 97 F-98.7 F 82-114 12-14 91-184/46-102 91-100 - General Appearance General appearance: chronically ill, sedated on ventilator EENT: ATNC, PERRL Neck: no JVD, no thyromegaly Respiratory: no kyphosis, rales Cardiology: no murmurs, no rub Gastrointestinal: normoactive bowel sounds, no tenderness Integumentary: no rash, warm and dry Neurologic: obtunded Musculoskeletal: no deformities, no erythema - Lab 09/11/16 04:42 09/11/16 04:42 Most recent lab results ABG pH 7.392 (7.35-7.45) 09/12/16 02:45 ABG pCO2 44.9 MM HG (35-48) 09/12/16 02:45 ABG pO2 117.0 MM HG (80-95) H 09/12/16 02:45 ABG HCO3 26.5 MMOL/L (20-26) H 09/12/16 02:45 ABG O2 Saturation 99.2 % (95-100) 09/12/16 02:45 Calcium 8.2 MG/DL (8.5-10.1) L 09/11/16 04:42 Phosphorus 3.5 MG/DL (2.5-4.9) 09/11/16 04:42 Magnesium 3.4 MG/DL (1.8-2.4) H 09/11/16 04:42 Assessment and Plan (1) Iron deficiency anemia Problem details: Continue venofer 200mg slow IVP daily, continue epogen. Status: Acute Assessment and plan: Continue iron sucrose 200mg slow IVP daily x 5 days total. Continue Epogen. Current Visit: Yes (2) CKD stage 4 due to type 2 diabetes mellitus Problem details: No indication for renal replacement therapy. Pt is not a good chronic dialysis candidate due to comorbidities. Status: Acute Current Visit : Yes (3) Bedbound patient Status: Chronic Current Visit: No (4) Dementia Status: Acute Current Visit: No (5) Diabetes mellitus Status: Chronic Current Visit: No Qualifiers: Diabetes mellitus type: type 2 Diabetes mellitus complication detail: with other kidney complication (6) BPH (benign prostatic hyperplasia) Status: Acute Current Visit: Yes
--- NOTE | 2016-09-12 14:10 | Hospitalist Progress Note ---
Assessment and Plan (1) Pneumonia Status: Acute Assessment and plan: 1)acute respiratory failure- due to pneumonia and anemia. On vent, requiring less O2 today. 2)pneumonia- on Zosyn. CXR looks better after intubation with less edema/ infiltrate. some effusions. 3)anemia- iron deficiency. on epogen, iron. refuses transfusion and counts continue to drop. 4)neuro- coma now- due to anemia, pneumonia. may have anoxic brain injury from anemia. 5)ANT on CKD- creatinine up today with decreased UOP. gently rehydrating. recheck in am. 6)dispo- remains full code. 7)nutrition- tube feeds as at [place]. 8)at baseline he has been bedfast since 2008 after a series of strokes. Current Visit: No Qualifiers: Pneumonia type: aspiration pneumonia Aspiration pneumonia type: due to gastric secretions Laterality: unspecified laterality Lung location: unspecified part of lung Qualified Code(s): J69.0 - Pneumonitis due to inhalation of food and vomit (2) Bedbound patient Status: Chronic Current Visit: No (3) History of multiple strokes Status: Chronic Current Visit: No (4) Diabetes mellitus Status: Chronic Current Visit: No Qualifiers: Diabetes mellitus type: type 2 Diabetes mellitus complication detail: with other kidney complication (5) Hyperkalemia Status: Acute Current Visit: Yes (6) Acute respiratory failure Status: Acute Current Visit: Yes (7) Altered mental status Status: Acute Current Visit: Yes (8) CKD stage 4 due to type 2 diabetes mellitus Problem details: No indication for renal replacement therapy. Pt is not a good chronic dialysis candidate due to comorbidities. Status: Acute Current Visit : Yes (9) Iron deficiency anemia Problem details: Continue venofer 200mg slow IVP daily, continue epogen. Status: Acute Current Visit: Yes Hospitalist: Subjective Interval history: I saw Mr Kim this morning. He remains on vent, not responding. Did not draw labs because his hgb is so low. Exam - Constitutional Vitals: Period Temp Pulse Resp BP Sys/Crespo Pulse Ox Last 24 Hr 97.1 F-98.7 F 80-114 12-24 76-191/37-102 91-100 General appearance: normal weight, no acute distress - Eye Eye exam: Present: EOMI. Absent: scleral icterus Pupils: Present: JOVANY (resists eye opening, pupils respond to light) - Respiratory Respiratory exam: Present: rales, rhonchi - Cardiovascular Cardiovascular exam: Present: regular rate and rhythm - GI/Abdominal GI/Abdominal exam: Present: normal bowel sounds, soft. Absent: tenderness - Extremities Exam Extremities exam: Absent: edema - Neurological Exam Neurological exam: Present: altered - Skin Skin exam: Present: warm, dry Results - Labs CBC & BMP: 09/11/16 04:42 09/11/16 04:42 Lab Results: I have reviewed the past 24 hour labs Quality Measures - VTE Contraindication to Pharmacological VTE Prophylaxis: High Risk of Bleeding
[2016-09-12] MEDS ORDERED: ASPIRIN EC 81 MG TABLET PO SCH (21:00)
[2016-09-12] MEDS: ASPIRIN CHEW 81 MG TABLET PO SCH (21:17)
[2016-09-12] MEDS: INSULIN GLARGINE 100 UNIT/ML SUBCUT SCH (21:17)
[2016-09-12] MEDS: SIMVASTATIN 20 MG TABLET PO SCH (21:18)
[2016-09-13] MEDS: LEVALBUTEROL 1.25 MG/3 ML NEB RESP TX SCH ×4 (00:23→23:59)
[2016-09-13 04:16] LABS: ABG Base Excess 3.4 MMOL/L (-2.5-2.5); ABG HCO3 27.4 MMOL/L (20-26); ABG Oxygen Saturation 91.5 % (95-100); ABG PCO2 38.2 MM HG (35-48); ABG PH 7.473 (7.35-7.45); ABG PO2 64.3 MM HG (80-95); ABG TCO2 28.5 MMOL/L (23-27); Allen Test Positive; Pt O2 Delivery Device Ventilator
[2016-09-13] MEDS: PIPERACILLIN/TAZOBACTAM 2,250 MG in SODIUM CHLORIDE 0.9% 100 ML IV SCH ×3 (05:09→21:04)
[2016-09-13] MEDS: cloNIDine 0.1 MG TABLET PO SCH ×5 (05:09→21:04)
[2016-09-13 05:38] LABS: Basophils % 0.1 % (0.0-0.8); Eosinophils # 1.3 10*3/uL (0.0-0.87); Eosinophils % 15.2 % (0.00-10.9); Immature Granulocytes % 1.3 %; Immature Granulocytes Absolute 0.11 #; Lymphocytes # 0.6 10*3/uL (1.4-4.0); Lymphocytes % 7.1 % (21.2-54.2); Mean Corpuscular HGB Conc 29.9 GM/DL (32-36); Mean Corpuscular Hemoglobin 26 PG (27-34); Mean Corpuscular Volume 88.5 FL (87-102); Mean Platelet Volume 13.5 FL (9.6-12.0); Monocytes # 0.7 10*3/uL (0.11-0.8); NRBC # 0.04 10*3/uL; Neutrophils % 68.3 % (38.7-73.9); Platelet Count 247 T/CUMM (130-400); Red Blood Count 1.74 MC/CUMM (3.8-5.5); Red Cell Distribution Width 19.9 % (9.3-17.3); White Blood Count 8.8 T/CUMM (4-12)
[2016-09-13 05:50] LABS: Hematocrit 15.4 VOL% (42.0-52.0); Hemoglobin 4.6 GM/DL (14.0-18.0)
[2016-09-13 06:12] LABS: Calcium 8.3 MG/DL (8.5-10.1); Osmolality,Calculated 305.7 MOS/KG (273-304); Potassium 4.1 MMOL/L (3.5-5.1)
[2016-09-13 06:23] LABS: Band Neutrophils 2 % (0-10); Eosinophils 14 % (0-10); Lymphocytes 6 % (20-55); Segmented Neutrophils 70 % (50-85); Total Cells Counted 100
[2016-09-13 06:24] LABS: Hypochromasia Slight; Platelet Estimate Normal
--- NOTE | 2016-09-13 06:58 | Hospitalist Progress Note ---
Assessment and Plan - Time spent with patient Time spent with patient: Greater than 30 minutes (1) Anemia Status: Chronic Assessment and plan: Patient is receiving the iron replacement as well as Epogen. Because of congregation reasons refuses transfusion. We are minimizing blood draws and continuing to follow H&H. Current Visit: Yes Qualifiers: Anemia type: iron deficiency (2) Acute respiratory failure Status: Acute Assessment and plan: Patient has acute respiratory failure likely secondary to pneumonia and severe anemia. We are continuing ventilatory support with minimal sedation. He has had CPAP trials but easily fatigued. Pulmonary is assisting with vent management. Continuing IV antibiotics for his pneumonia as well as iron and Epogen therapy for his anemia. Current Visit: Yes (3) Pneumonia Status: Acute Assessment and plan: He continues on IV antibiotics as well as ventilatory support. Pulmonary is assisting. Current Visit: Yes Qualifiers: Pneumonia type: aspiration pneumonia Aspiration pneumonia type: due to gastric secretions Laterality: unspecified laterality Lung location: unspecified part of lung Qualified Code(s): J69.0 - Pneumonitis due to inhalation of food and vomit (4) Diabetes mellitus Status: Chronic Assessment and plan: Blood sugars relatively well controlled. Continue current medical regimen. Current Visit: No Qualifiers: Diabetes mellitus type: type 2 Diabetes mellitus complication detail: with other kidney complication (5) Acute on chronic renal failure Status: Acute Assessment and plan: Patient has acute on chronic renal failure. Creatinine is 3.1 today. He is receiving gentle hydration and nephrology is assisting with his care. Current Visit: Yes (6) Bedbound patient Status: Chronic Current Visit: No (7) History of multiple strokes Status: Chronic Current Visit: No Hospitalist: Subjective Interval history: Patient has been examined and chart is been reviewed. He is a Tenriism and has severe anemia. He has had acute respiratory failure secondary to severe anemia and pneumonia. Patient remains on the ventilator with mild sedation. Nurses report no new issues except blood pressure lability. He continues on ventilator and is fatigued with CPAP trials. Pulmonary and nephrology continue to follow. He continues on tube feedings for nutritional support.. Exam - Constitutional Vitals: Period Temp Pulse Resp BP Sys/Crespo Pulse Ox Last 24 Hr 97.1 F-98.7 F 80-103 11-26 76-193/37-80 93-100 General appearance: no acute distress - Head Head exam: Present: normocephalic, atraumatic - Eye Eye exam: Present: EOMI Pupils: Present: JOVANY - ENT ENT exam: Present: other (Intubated ET tube in place) - Neck Neck exam: Present: normal inspection - Respiratory Respiratory exam: Present: rhonchi - Cardiovascular Cardiovascular exam: Present: regular rate and rhythm - GI/Abdominal GI/Abdominal exam: Present: normal bowel sounds, soft, other (PEG tube in place) . Absent: tenderness - Extremities Exam Extremities exam: Present: normal capillary refill. Absent: calf tenderness, edema - Neurological Exam Neurological exam: Present: other (He does open his eyes to stimulation. He is moving his left upper extremity to tactile stimuli. Minimal movement of right upper extremity and no movement of his lower extremities.) - Skin Skin exam: Present: warm, dry. Absent: rash Results - Labs CBC & BMP: 09/13/16 04:51 09/13/16 04:51 Lab Results: I have reviewed the past 24 hour labs - Diagnostic Findings Procedure: Chest x-ray: image reviewed by me Quality Measures - VTE Contraindication to Pharmacological VTE Prophylaxis: High Risk of Bleeding
--- NOTE | 2016-09-13 07:21 | Pulmonology Progress Note ---
Pulmonary - PN: Subj Interval history: This 61-year-old white male has severe anemia. He is a Hoahaoism and declines any blood transfusions. He is getting bone marrow stimulants and iron. He is on the ventilator with pneumonia and respiratory failure. Oxygen saturation has been acceptable. Not able to wean at this point however. The fatigue during CPAP yesterday and it was stopped early. Exam (Progress Note) - Constitutional Vitals: Period Temp Pulse Resp BP Sys/Crespo Pulse Ox Last 24 Hr 97.1 F-98.7 F 80-103 11-26 76-193/37-80 93-100 Exam: Patient is sedated but somewhat responsive. Systolic blood pressures around 190. Pupils are reactive. Pale conjunctiva. Orotracheal tube in place. Neck supple no bruits. Chest reveals some rhonchi primarily in the right base. Heart rapid rate normal rhythm no murmurs. Abdomen soft nontender no masses. Extremities no clubbing cyanosis edema. Calves nontender. Results - Labs CBC & BMP: 09/13/16 04:51 09/13/16 04:51 Lab Results: I have reviewed the past 24 hour labs - Diagnostic Findings Procedure: Chest x-ray: image reviewed by me (Right lower lobe pneumonia. ET tube good position.) Assessment and Plan (1) Anemia Status: Chronic Assessment and plan: Severe anemia with hematocrit 15. Declines transfusions for mandaen reasons. Continuing with pulmonary stimulants and iron. Current Visit: Yes Qualifiers: Anemia type: iron deficiency (2) Pneumonia Status: Acute Assessment and plan: Right lower lobe pneumonia. On Zosyn for resistant E. coli.. Current Visit: Yes Qualifiers: Pneumonia type: aspiration pneumonia Aspiration pneumonia type: due to gastric secretions Laterality: unspecified laterality Lung location: unspecified part of lung Qualified Code(s): J69.0 - Pneumonitis due to inhalation of food and vomit (3) Acute respiratory failure Status: Acute Assessment and plan: ABGs acceptable. Not tolerating weaning trials yet. Current Visit: Yes (4) CKD stage 4 due to type 2 diabetes mellitus Problem details: No indication for renal replacement therapy. Pt is not a good chronic dialysis candidate due to comorbidities. Status: Acute Assessment and plan: Creatinine is 3.1. Patient is making urine. Nephrology following. Current Visit: Yes
--- NOTE | 2016-09-13 08:13 | XRay Report ---
XR chest 1V portable Indication: Ventilator. Comparison: Chest x-ray 09/12/2016 Technique: Portable AP chest was performed. Findings: Endotracheal tube terminates at the level of the aortic knob. Parenchymal opacities in the lung bases remain present with some improvement in inspiration demonstrated on the right. Upper lungs are clear. Impression: 1. Bibasilar parenchymal opacities remain present with little overall change suggested. 09/13/2016 8:09 AM PROCEDURE INTERPRETED AT [facility] DEPARTMENT OF RADIOLOGY Final Report Signed by: Dr. Jose Eduardo Evans
[2016-09-13] MEDS: FUROSEMIDE 40 MG/4 ML VIAL IV SCH ×2 (08:45→15:32)
[2016-09-13] MEDS: CYANOCOBALAMIN 500 MCG TABLET PO SCH ×2 (08:45→20:30)
[2016-09-13] MEDS: METOPROLOL TARTRATE 50 MG TABLET PO SCH ×3 (08:45→20:30)
[2016-09-13] MEDS: INSULIN REGULAR 100 UNIT/ML SUBCUT SCH ×4 (08:45→20:29)
[2016-09-13] MEDS: TAMSULOSIN 0.4 MG CAPSULE PO SCH (08:46)
[2016-09-13] MEDS: ISOSORBIDE DINITRATE 20 MG TABLET PEG SCH ×3 (08:46→20:29)
[2016-09-13] MEDS: BACITRACIN OINT 0.9 GM PACK TOP SCH (08:46)
[2016-09-13] MEDS: FINASTERIDE 5 MG TABLET PO SCH (08:46)
[2016-09-13] MEDS: SERTRALINE 25 MG TABLET PO SCH (08:46)
[2016-09-13] MEDS: FOLIC ACID 0.4 MG TABLET PO SCH ×2 (08:46→20:29)
[2016-09-13] MEDS: PANTOPRAZOLE 40 MG TABLET PO SCH (08:46)
[2016-09-13] MEDS: amLODIPine 5 MG TABLET PO SCH (08:46)
[2016-09-13] MEDS: IRON SUCROSE 200 MG in SODIUM CHLORIDE 0.9% 100 ML IV SCH (11:00)
[2016-09-13] MEDS: DESITIN 4OZ/NYSTATIN 15 GRAM MIXTURE PASTE TOP SCH ×2 (11:03→20:30)
--- NOTE | 2016-09-13 11:19 | Nephrology Progress Note ---
Nephrology - PN: Subj Interval history: He remains on the ventilator. Blood pressure stable. Exam (PN)-Nephrology - Vital Signs Vital signs: Period Temp Pulse Resp BP Sys/Crespo Pulse Ox Last 24 Hr 97.3 F-98.7 F 79-103 11-26 76-193/37-80 93-100 Exam: Gen.: Sedated on ventilator ENT: Pupils equal round reactive to light. Neck: Supple. No JVD or bruit. Cardiovascular: Regular rate and rhythm. No murmur rub or gallop Lungs: Clear Abdomen: Soft. Nontender. Positive bowel sounds. No organomegaly Extremities: No edema - Lab 09/13/16 04:51 09/13/16 04:51 Most recent lab results ABG pH 7.473 (7.35-7.45) H 09/13/16 Unknown ABG pCO2 38.2 MM HG (35-48) 09/13/16 Unknown ABG pO2 64.3 MM HG (80-95) L 09/13/16 Unknown ABG HCO3 27.4 MMOL/L (20-26) H 09/13/16 Unknown ABG O2 Saturation 91.5 % (95-100) L 09/13/16 Unknown Calcium 8.3 MG/DL (8.5-10.1) L 09/13/16 04:51 Phosphorus 3.5 MG/DL (2.5-4.9) 09/11/16 04:42 Magnesium 3.4 MG/DL (1.8-2.4) H 09/11/16 04:42 Assessment and Plan (1) Acute on chronic renal failure Status: Acute Assessment and plan: 61-year-old man with: * CRF stage IV. Renal function stable * Anemia. Slowly improving with Epogen and IV iron * Ventilatory failure * Pneumonia * Diabetes mellitus Current Visit: Yes (2) Acute respiratory failure Status: Acute Current Visit: Yes (3) Anemia Status: Acute Current Visit: Yes (4) Hyperkalemia Status: Acute Current Visit: Yes (5) Pneumonia Status: Acute Current Visit: Yes Qualifiers: Pneumonia type: aspiration pneumonia Aspiration pneumonia type: due to gastric secretions Laterality: unspecified laterality Lung location: unspecified part of lung Qualified Code(s): J69.0 - Pneumonitis due to inhalation of food and vomit (6) Diabetes mellitus Status: Chronic Current Visit: No Qualifiers: Diabetes mellitus type: type 2 Diabetes mellitus complication detail: with other kidney complication
[2016-09-13] MEDS: PROPOFOL 1,000 MG/100 ML BOTTLE IV SCH (15:32)
[2016-09-13] MEDS: ASPIRIN CHEW 81 MG TABLET PO SCH (20:29)
[2016-09-13] MEDS: INSULIN GLARGINE 100 UNIT/ML SUBCUT SCH (20:29)
[2016-09-13] MEDS: SIMVASTATIN 20 MG TABLET PO SCH (20:30)
[2016-09-14 03:50] LABS: ABG Base Excess 4.3 MMOL/L (-2.5-2.5); ABG HCO3 28.3 MMOL/L (20-26); ABG Oxygen Saturation 98.6 % (95-100); ABG PCO2 38.4 MM HG (35-48); ABG PH 7.474 (7.35-7.45); ABG PO2 95.3 MM HG (80-95); ABG TCO2 27.4 MMOL/L (23-27); Allen Test Positive; Pt O2 Delivery Device Ventilator
[2016-09-14] MEDS: PIPERACILLIN/TAZOBACTAM 2,250 MG in SODIUM CHLORIDE 0.9% 100 ML IV SCH ×3 (06:32→22:10)
[2016-09-14] MEDS: cloNIDine 0.1 MG TABLET PO SCH ×5 (06:32→22:10)
[2016-09-14] MEDS: LEVALBUTEROL 1.25 MG/3 ML NEB RESP TX SCH ×2 (06:52→14:13)
--- NOTE | 2016-09-14 08:08 | Pulmonology Progress Note ---
Pulmonary - PN: Subj Interval history: This 61-year-old white male has severe anemia. He is a Jewish and declines any blood transfusions. He is getting bone marrow stimulants and iron. He is on the ventilator with pneumonia and respiratory failure. Oxygen saturation has been acceptable. Not able to wean at this point however. The fatigue during CPAP yesterday and it was stopped early. 09/14/2016 patient with severe anemia that declines blood transfusions. Continues on ventilator for respiratory failure pneumonia. Chest x-ray showing some right basilar infiltrate but it is a little bit better. Continuing with CPAP trials. He did tolerate 8 hours of CPAP yesterday. Exam (Progress Note) - Constitutional Vitals: Period Temp Pulse Resp BP Sys/Crespo Pulse Ox Last 24 Hr 97.4 F-98.0 F 75-95 12-19 114-190/56-93 92-100 Exam: Patient is sedated but somewhat responsive. Systolic blood pressures around 170. Pupils are reactive. Pale conjunctiva. Orotracheal tube in place. Neck supple no bruits. Chest reveals some rhonchi primarily in the right base. Heart rapid rate normal rhythm no murmurs. Abdomen soft nontender no masses. Extremities no clubbing cyanosis edema. Calves nontender. Results - Labs CBC & BMP: 09/13/16 04:51 09/13/16 04:51 Lab Results: I have reviewed the past 24 hour labs - Diagnostic Findings Procedure: Chest x-ray: image reviewed by me (ET tube good position. Right lower lobe infiltrate slightly less than before.) Assessment and Plan (1) Anemia Status: Chronic Assessment and plan: Severe anemia with hematocrit 15. Declines transfusions for temple reasons. Continuing with bone marrow stimulants and iron. 09/14/2016 little we can do for the anemia at present. Current Visit: Yes Qualifiers: Anemia type: iron deficiency (2) Pneumonia Status: Acute Assessment and plan: Right lower lobe pneumonia. On Zosyn for resistant E. coli.. 09/14/2016 continuing Zosyn for E. coli pneumonia. Chest x-ray a little better. Patient tolerating CPAP better. Current Visit: Yes Qualifiers: Pneumonia type: aspiration pneumonia Aspiration pneumonia type: due to gastric secretions Laterality: unspecified laterality Lung location: unspecified part of lung Qualified Code(s): J69.0 - Pneumonitis due to inhalation of food and vomit (3) Acute respiratory failure Status: Acute Assessment and plan: ABGs acceptable. Not tolerating weaning trials yet. 09/14/2016 tolerated CPAP much better yesterday. Progressing per protocol. Current Visit: Yes (4) CKD stage 4 due to type 2 diabetes mellitus Problem details: No indication for renal replacement therapy. Pt is not a good chronic dialysis candidate due to comorbidities. Status: Acute Assessment and plan: Creatinine is 3.1. Patient is making urine. Nephrology following. Current Visit: Yes
--- NOTE | 2016-09-14 08:42 | XRay Report ---
XR chest 1V portable Indication: Ventilator Comparison: Chest x-ray 09/13/2016 Technique: Portable AP chest was performed. Findings: Improved visualization of the left hemidiaphragm is demonstrated within the central left lower chest. Otherwise his been little change in the chest when compared to previous study. Multiple tubes and medical support devices appear stable. Impression: 1. Minimal improvement in the left lung base is suggested. Otherwise little change. 09/14/2016 8:38 AM PROCEDURE INTERPRETED AT [facility] DEPARTMENT OF RADIOLOGY Final Report Signed by: Dr. Jose Eduardo Evans
[2016-09-14] MEDS: INSULIN REGULAR 100 UNIT/ML SUBCUT SCH ×4 (08:57→22:09)
--- NOTE | 2016-09-14 09:23 | Hospitalist Progress Note ---
Assessment and Plan - Time spent with patient Time spent with patient: Less than 30 minutes (1) Anemia Status: Chronic Assessment and plan: Patient is receiving the iron replacement as well as Epogen. Because of tenriism reasons refuses transfusion. We are minimizing blood draws and continuing to follow H&H. 09/14/16: Patient refuses transfusion because of tenriism reasons. We are minimizing blood draws continue to follow his H&H intermittently. He has been receiving iron replacement as well as Epogen therapy. Current Visit: Yes Qualifiers: Anemia type: iron deficiency (2) Acute respiratory failure Status: Acute Assessment and plan: Patient has acute respiratory failure likely secondary to pneumonia and severe anemia. We are continuing ventilatory support with minimal sedation. He has had CPAP trials but easily fatigued. Pulmonary is assisting with vent management. Continuing IV antibiotics for his pneumonia as well as iron and Epogen therapy for his anemia. 09/14/16: Continuing IV antibiotics for his pneumonia and treating his anemia as noted above. CPAP trials are continuing and he is improving slightly. Pulmonary is assisting with management. Current Visit: Yes (3) Pneumonia Status: Acute Assessment and plan: He continues on IV antibiotics as well as ventilatory support. Pulmonary is assisting. Current Visit: Yes Qualifiers: Pneumonia type: aspiration pneumonia Aspiration pneumonia type: due to gastric secretions Laterality: unspecified laterality Lung location: unspecified part of lung Qualified Code(s): J69.0 - Pneumonitis due to inhalation of food and vomit (4) Diabetes mellitus Status: Chronic Assessment and plan: Blood sugars relatively well controlled. Continue current medical regimen. Current Visit: No Qualifiers: Diabetes mellitus type: type 2 Diabetes mellitus complication detail: with other kidney complication (5) Acute on chronic renal failure Status: Acute Assessment and plan: 09/13/16: Patient has acute on chronic renal failure. Creatinine is 3.1 today. He is receiving gentle hydration and nephrology is assisting with his care. 09/14/16: Nephrology is following and assisting with his care. No labs have been drawn today. Current Visit: Yes (6) Bedbound patient Status: Chronic Current Visit: No (7) History of multiple strokes Status: Chronic Current Visit: No Hospitalist: Subjective Interval history: Patient remains on ventilator with mild sedation. No new issues. He is followed by pulmonary nephrology and continues to provide nutritional support via enteral feedings. CPAP trials continuing. Exam - Constitutional Vitals: Period Temp Pulse Resp BP Sys/Crespo Pulse Ox Last 24 Hr 97.1 F-98.0 F 75-96 12-19 114-190/56-93 92-100 General appearance: no acute distress - Head Head exam: Present: normocephalic, atraumatic - Eye Eye exam: Present: other (Pale conjunctiva) Pupils: Present: JOVANY - ENT ENT exam: Present: other (ET tube in place) - Neck Neck exam: Present: normal inspection - Respiratory Respiratory exam: Present: rhonchi (Primarily on the right) - Cardiovascular Cardiovascular exam: Present: regular rate and rhythm, tachycardia - GI/Abdominal GI/Abdominal exam: Present: normal bowel sounds, soft, other (PEG tube in place) . Absent: tenderness - Extremities Exam Extremities exam: Absent: calf tenderness, edema - Neurological Exam Neurological exam: Present: other (He opens his eyes to stimulation. No movement of lower extremities and minimal movement of upper extremities to tactile stimuli) - Skin Skin exam: Present: warm, dry. Absent: rash Results - Labs CBC & BMP: 09/13/16 04:51 09/13/16 04:51 Lab Results: I have reviewed the past 24 hour labs - Diagnostic Findings Procedure: Chest x-ray: report reviewed by me Quality Measures - VTE Contraindication to Pharmacological VTE Prophylaxis: High Risk of Bleeding
[2016-09-14] MEDS: BACITRACIN OINT 0.9 GM PACK TOP SCH (09:57)
[2016-09-14] MEDS: CYANOCOBALAMIN 500 MCG TABLET PO SCH ×2 (09:57→22:10)
[2016-09-14] MEDS: METOPROLOL TARTRATE 50 MG TABLET PO SCH ×3 (09:57→22:10)
[2016-09-14] MEDS: FOLIC ACID 0.4 MG TABLET PO SCH ×2 (09:57→22:09)
[2016-09-14] MEDS: FINASTERIDE 5 MG TABLET PO SCH (09:57)
[2016-09-14] MEDS: amLODIPine 5 MG TABLET PO SCH (09:57)
[2016-09-14] MEDS: ISOSORBIDE DINITRATE 20 MG TABLET PEG SCH ×3 (09:57→22:10)
[2016-09-14] MEDS: DESITIN 4OZ/NYSTATIN 15 GRAM MIXTURE PASTE TOP SCH ×2 (09:57→22:10)
[2016-09-14] MEDS: IRON SUCROSE 200 MG in SODIUM CHLORIDE 0.9% 100 ML IV SCH (09:57)
[2016-09-14] MEDS: TAMSULOSIN 0.4 MG CAPSULE PO SCH (09:57)
[2016-09-14] MEDS: PANTOPRAZOLE 40 MG TABLET PO SCH (09:57)
[2016-09-14] MEDS: SERTRALINE 25 MG TABLET PO SCH (09:57)
[2016-09-14] MEDS: FUROSEMIDE 40 MG/4 ML VIAL IV SCH ×2 (10:30→16:40)
--- NOTE | 2016-09-14 11:31 | Nephrology Progress Note ---
Nephrology - PN: Subj Interval history: He remains on the ventilator. He is awake. Blood pressure stable Exam (PN)-Nephrology - Vital Signs Vital signs: Period Temp Pulse Resp BP Sys/Crespo Pulse Ox Last 24 Hr 97.1 F-98.0 F 75-96 12-20 114-190/56-93 92-100 Exam: Gen.: Sedated on ventilator ENT: Pupils equal round reactive to light. Neck: Supple. No JVD or bruit. Cardiovascular: Regular rate and rhythm. No murmur rub or gallop Lungs: Clear Abdomen: Soft. Nontender. Positive bowel sounds. No organomegaly Extremities: No edema - Lab 09/13/16 04:51 09/13/16 04:51 Most recent lab results ABG pH 7.474 (7.35-7.45) H 09/14/16 03:30 ABG pCO2 38.4 MM HG (35-48) 09/14/16 03:30 ABG pO2 95.3 MM HG (80-95) H 09/14/16 03:30 ABG HCO3 28.3 MMOL/L (20-26) H 09/14/16 03:30 ABG O2 Saturation 98.6 % (95-100) 09/14/16 03:30 Calcium 8.3 MG/DL (8.5-10.1) L 09/13/16 04:51 Phosphorus 3.5 MG/DL (2.5-4.9) 09/11/16 04:42 Magnesium 3.4 MG/DL (1.8-2.4) H 09/11/16 04:42 Assessment and Plan (1) Acute on chronic renal failure Status: Acute Assessment and plan: 61-year-old man with: * CRF stage IV. Renal function was stable yesterday. No labs today * Anemia. Slowly improving with Epogen and IV iron * Ventilatory failure * Pneumonia * Diabetes mellitus Current Visit: Yes (2) Acute respiratory failure Status: Acute Current Visit: Yes (3) Anemia Status: Acute Current Visit: Yes (4) Hyperkalemia Status: Acute Current Visit: Yes (5) Pneumonia Status: Acute Current Visit: Yes Qualifiers: Pneumonia type: aspiration pneumonia Aspiration pneumonia type: due to gastric secretions Laterality: unspecified laterality Lung location: unspecified part of lung Qualified Code(s): J69.0 - Pneumonitis due to inhalation of food and vomit (6) Diabetes mellitus Status: Chronic Current Visit: No Qualifiers: Diabetes mellitus type: type 2 Diabetes mellitus complication detail: with other kidney complication
[2016-09-14] MEDS: PROPOFOL 1,000 MG/100 ML BOTTLE IV SCH ×2 (13:30→16:40)
[2016-09-14] MEDS: ASPIRIN CHEW 81 MG TABLET PO SCH (22:09)
[2016-09-14] MEDS: INSULIN GLARGINE 100 UNIT/ML SUBCUT SCH (22:10)
[2016-09-14] MEDS: SIMVASTATIN 20 MG TABLET PO SCH (22:10)
[2016-09-15] MEDS: LEVALBUTEROL 1.25 MG/3 ML NEB RESP TX SCH ×2 (00:07→06:45)
[2016-09-15 03:58] LABS: Allen Test Positive; Pt O2 Delivery Device Ventilator
[2016-09-15 04:01] LABS: ABG Base Excess 4.8 MMOL/L (-2.5-2.5); ABG Oxygen Saturation 99.1 % (95-100); ABG PCO2 34.3 MM HG (35-48); ABG TCO2 29.1 MMOL/L (23-27)
[2016-09-15] MEDS: cloNIDine 0.1 MG TABLET PO SCH ×5 (06:00→21:52)
[2016-09-15 06:11] LABS: Magnesium 3.5 MG/DL (1.8-2.4); Prealbumin 19.4 MG/DL (20-40)
[2016-09-15] MEDS: PIPERACILLIN/TAZOBACTAM 2,250 MG in SODIUM CHLORIDE 0.9% 100 ML IV SCH ×3 (06:57→23:27)
--- NOTE | 2016-09-15 07:28 | XRay Report ---
Referring Physician: Brett Lord MD Exam: XR chest 1V portable Date: September 15, 2016 at 3:05 AM Reason: Ventilation, pneumonia Comparison: Chest one view portable September 14, 2016 Findings: An endotracheal tube is again in place. The cardiac silhouette is again mildly enlarged. There are scattered opacities within both lower lung zones. This could represent pulmonary edema and/or pneumonia with atelectasis. No pneumothorax is identified, but there is mild left pleural fluid. The osseous structures appear stable. Impression: There is increased atelectasis/consolidation at the left lung base, and there may be slight increased left pleural fluid. PROCEDURE INTERPRETED AT [facility] DEPARTMENT OF RADIOLOGY Final Report Signed by: Dr. Dawit Preston
--- NOTE | 2016-09-15 08:35 | Pulmonology Progress Note ---
Pulmonary - PN: Subj Interval history: The patient is a 61-year-old white man that is a Catholic and is in very poor condition. He apparently has been bedridden since 2008 when he had CVAs. He came in with low-grade fever and significant weight and some congestion. He has felt to have some pneumonia. He does have bilateral infiltrates. He can not give any history. He is requiring oxygen and gets hypoxemic at times. He has not been able to cough much. His hemoglobin is 4.7 family does not want him to get blood. He does have bilateral infiltrates on his chest x-ray. His VQ scan shows ventilation and perfusion matches and is intermediate and does not show definite emboli. His Dopplers of his legs are negative. Certainly would not treat him with anticoagulation. The patient developed worsening respiratory failure and was placed on the ventilator. He has done fairly well over the weekend and is doing CPAP better. His oxygenation is improved. His x-ray still shows mild bibasilar infiltrates. We will proceed with a therapeutic bronchoscopy today. Exam (Progress Note) - Constitutional Vitals: Period Temp Pulse Resp BP Sys/Crespo Pulse Ox Last 24 Hr 96.9 F-97.4 F 71-93 11-23 94-196/43-88 97-100 Exam: General appearance: the patient is now sedated on the ventilator and is stable. He arouses when off sedation. - Head Head exam: Present: normal inspection, normocephalic - Eye Eye exam: Present: EOMI. Absent: scleral icterus Pupils: Present: JOVANY - ENT ENT exam: Present: other (He has very pale) he has an ET tube in place. - Neck Neck exam: Present: normal inspection. Absent: lymphadenopathy, thyromegaly - Respiratory Respiratory exam: Present: He has equal breath sounds bilaterally is moving air fairly well with just some minimal rhonchi. - Cardiovascular Cardiovascular exam: Present: regular rate and rhythm, systolic murmur (He does have a soft murmur). Absent: gallop - GI/Abdominal GI/Abdominal exam: Present: hypoactive bowel sounds, soft. Absent: organomegaly , tenderness - Extremities Exam Extremities exam: Present: other (Multiple toe amputations). Absent: calf tenderness, edema - Neurological Exam Neurological exam: Present: other (He is sedated on the ventilator now. He does arouse okay.) - Psychiatric Psychiatric exam: Absent: anxious - Skin Skin exam: Present: warm, pallor Results - Labs CBC & BMP: 09/13/16 04:51 09/13/16 04:51 Labs: His PO2 is 189 with a PCO2 of 34 and a pH of 7.53 - Diagnostic Findings Procedure: Chest x-ray: image reviewed by me, report reviewed by me (Chest x- ray showed bibasilar infiltrates.) Assessment and Plan (1) Anemia Status: Chronic Assessment and plan: The patient has severe anemia and refuses transfusions. Hematology is following. His last hemoglobin was 4.2. Current Visit: Yes Qualifiers: Anemia type: iron deficiency (2) Pneumonia Status: Acute Assessment and plan: Patient has been treated for aspiration pneumonia. He does have bilateral infiltrates. He does have E. coli ESBL on culture. He is on Zosyn at the present time. His oxygenation has improved on the ventilator and his chest x- ray is improving. He is almost ready to extubate but will go ahead with a therapeutic bronchoscopy and clear his airways. Hopefully can extubate him tomorrow. Current Visit: Yes Qualifiers: Pneumonia type: aspiration pneumonia Aspiration pneumonia type: due to gastric secretions Laterality: unspecified laterality Lung location: unspecified part of lung Qualified Code(s): J69.0 - Pneumonitis due to inhalation of food and vomit (3) Bedbound patient Status: Chronic Assessment and plan: The patient has had previous CVAs and is bedbound. He is quite debilitated. He basically has multi-infarct dementia. Current Visit: No (4) History of multiple strokes Status: Chronic Assessment and plan: Patient has had multiple CVAs and is certainly chronically ill. He is bedridden and poorly responsive. He does arouse a little bit on the ventilator. Current Visit: No (5) Diabetes mellitus Status: Chronic Assessment and plan: Glucose has been stable over the weekend. Current Visit: No Qualifiers: Diabetes mellitus type: type 2 Diabetes mellitus complication detail: with other kidney complication (6) Acute on chronic renal failure Status: Acute Assessment and plan: Creatinine is 3.1 at last check. Current Visit: Yes (7) Acute respiratory failure Status: Acute Assessment and plan: The patient is now sedated on the ventilator. His oxygenation is better. He is fairly stable on the ventilator. Will adjust his ventilator and continue weaning trials. Current Visit: Yes (8) Altered mental status Status: Acute Assessment and plan: The patient has multi-infarct dementia and is severely debilitated. He has severe anemia along with some pneumonia. He has chronic renal failure. His overall outlook is very very poor. Now is on the ventilator and has a very poor prognosis . Current Visit: Yes
[2016-09-15] MEDS: INSULIN REGULAR 100 UNIT/ML SUBCUT SCH ×4 (08:56→23:37)
[2016-09-15] MEDS: FINASTERIDE 5 MG TABLET PO SCH (09:07)
[2016-09-15] MEDS: METOPROLOL TARTRATE 50 MG TABLET PO SCH ×3 (09:07→21:52)
[2016-09-15] MEDS: SERTRALINE 25 MG TABLET PO SCH (09:07)
[2016-09-15] MEDS: amLODIPine 5 MG TABLET PO SCH (09:07)
[2016-09-15] MEDS: TAMSULOSIN 0.4 MG CAPSULE PO SCH (09:08)
[2016-09-15] MEDS: BACITRACIN OINT 0.9 GM PACK TOP SCH (09:08)
[2016-09-15] MEDS: ISOSORBIDE DINITRATE 20 MG TABLET PEG SCH ×3 (09:08→21:52)
[2016-09-15] MEDS: PANTOPRAZOLE 40 MG TABLET PO SCH (09:08)
[2016-09-15] MEDS: CYANOCOBALAMIN 500 MCG TABLET PO SCH ×2 (09:08→21:52)
[2016-09-15] MEDS: FUROSEMIDE 40 MG/4 ML VIAL IV SCH ×2 (09:08→16:37)
[2016-09-15] MEDS: FOLIC ACID 0.4 MG TABLET PO SCH ×2 (09:08→21:52)
[2016-09-15] MEDS: EPOETIN ALFA 10,000 UNIT/1 ML VIAL SUBCUT SCH (10:27)
[2016-09-15] MEDS: DESITIN 4OZ/NYSTATIN 15 GRAM MIXTURE PASTE TOP SCH ×2 (10:34→21:52)
--- NOTE | 2016-09-15 11:24 | Hospitalist Progress Note ---
Assessment and Plan (1) Pneumonia Status: Acute Assessment and plan: cont zosyn, attempt to wean off vent Current Visit: Yes Qualifiers: Pneumonia type: aspiration pneumonia Aspiration pneumonia type: due to gastric secretions Laterality: unspecified laterality Lung location: unspecified part of lung Qualified Code(s): J69.0 - Pneumonitis due to inhalation of food and vomit (2) Acute respiratory failure Status: Acute Assessment and plan: on the vent weaning off Current Visit: Yes (3) Acute on chronic renal failure Status: Acute Assessment and plan: cont lasix 40 mg IV twice a day Current Visit: Yes (4) Iron deficiency anemia Problem details: Continue venofer 200mg slow IVP daily, continue epogen. Status: Acute Assessment and plan: s/p iron infusion Current Visit: Yes (5) Diabetes mellitus Status: Chronic Assessment and plan: no evidence of diabetes, Hgb A1c less than 4.2 Current Visit: No Qualifiers: Diabetes mellitus type: type 2 Diabetes mellitus complication detail: with other kidney complication (6) History of multiple strokes Status: Chronic Assessment and plan: cont Current Visit: No (7) Hypertension Status: Chronic Assessment and plan: cont clonidine and norvasc Current Visit: No Qualifiers: Hypertension type: essential hypertension Qualified Code(s): I10 - Essential (primary) hypertension Hospitalist: Subjective Interval history: cpap for 12 hours, doing well, not really alert, discussed case with Dr. Graham and no dialysis needed, received transfusion of iron, refusing blood products due to jehovah witness, hgb improving. Exam - Constitutional Vitals: Period Temp Pulse Resp BP Sys/Crespo Pulse Ox Last 24 Hr 96.9 F-97.4 F 71-100 11-23 94-196/43-107 88-100 Exam: HR-RRR Lung clear GI +bs soft and nontender skin pale Neuro opens eyes to command but too lethargic psych normal mood and affect general no acute distress Results - Labs CBC & BMP: 09/13/16 04:51 09/13/16 04:51 Lab Results: I have reviewed the past 24 hour labs - Diagnostic Findings Procedure: Chest x-ray: report reviewed by me (LLL with pleural effusion ) Quality Measures - VTE Contraindication to Pharmacological VTE Prophylaxis: High Risk of Bleeding
--- NOTE | 2016-09-15 13:32 | Operative Note ---
Date of procedure: 09/15/16 Pre-op diagnosis: Respiratory failure with bilateral pneumonia Post-op diagnosis: other (Thick mucus and retained secretions) Procedure: Patient is a 61-year-old on the ventilator with respiratory failure. A therapeutic bronchoscopy will be done to clear airways and assess airways. Procedure: The fiberoptic bronchoscope was passed to the ET tube into the airways. The bronchopulmonary segments were identified and no specimens obtained. Findings: The ET tube is in good position in the trachea. The main bronchi are open. There is some thick secretions and plugs seen bilaterally that were washed and cleared. The right upper lobe, right middle lobe, and right lower lobe are all open. The left upper lobe, lingula, and left lower lobe are open. Once the airways were washed and cleared the procedure was stopped. He coughs some but tolerated it well. Impression: Bilateral pneumonia with retained secretions. Plan: We will continue weaning from the ventilator. Anesthesia: conscious sedation Surgeon / Physician: Brett Lord Estimated blood loss: none Specimens: none sent Condition: critical Disposition: ICU Results - Labs CBC & BMP: 09/13/16 04:51 09/13/16 04:51 Discharge Plan - Discharge Medications No Action Sertraline [Zoloft] 25 mg PO DAILY Pregabalin [Lyrica] 225 mg PO BID Metoprolol Tartrate 50 mg PO TID Methocarbamol 500 mg PO BID PRN PRN Reason: Pain Tamsulosin [Flomax] 0.4 mg PO DAILY Finasteride 5 mg PO DAILY cloNIDine TAB [Catapres Tab] 0.1 mg PO Q4H Aspirin EC Tab 81 mg PO QPM Valsartan 80 mg PO QID Pantoprazole Tab [Protonix Tab] 40 mg PO DAILY Simvastatin 20 mg PO BEDTIME Isosorbide Mononitrate [Imdur] 30 mg PO DAILY Ferrous Sulfate 325 mg PO BID - Follow Up or Referral - Forms/Instructions
[2016-09-15] MEDS: ALBUTEROL/IPRATROPIUM 3 ML NEB RESP TX SCH ×2 (14:59→19:15)
--- NOTE | 2016-09-15 15:09 | Nephrology Progress Note ---
Nephrology - PN: Subj Interval history: Pt has spontaneous eye opening for me today, an improvement. His color looks better, No CBC/renal labs. Exam (PN)-Nephrology - Vital Signs Vital signs: Period Temp Pulse Resp BP Sys/Crespo Pulse Ox Last 24 Hr 97 F-97.4 F 71-100 11- 117-196/45-107 88-100 - General Appearance General appearance: well-developed, chronically ill EENT: ATNC, PERRL, mucous membranes dry, hearing intact, vision intact Neck: no JVD, no thyromegaly Respiratory: no kyphosis, rales Cardiology: no murmurs, no rub Gastrointestinal: normoactive bowel sounds, no tenderness Integumentary: no rash, warm and dry Neurologic: no focal deficit, no asterixis Musculoskeletal: no deformities, no erythema Psychiatric: depressed - Lab 09/13/16 04:51 09/13/16 04:51 Most recent lab results ABG pH 7.530 (7.35-7.45) H 09/15/16 03:24 ABG pCO2 34.3 MM HG (35-48) L 09/15/16 03:24 ABG pO2 189.0 MM HG (80-95) H 09/15/16 03:24 ABG HCO3 28.0 MMOL/L (20-26) H 09/15/16 03:24 ABG O2 Saturation 99.1 % (95-100) 09/15/16 03:24 Calcium 8.3 MG/DL (8.5-10.1) L 09/13/16 04:51 Phosphorus 6.0 MG/DL (2.5-4.9) H 09/15/16 05:16 Magnesium 3.5 MG/DL (1.8-2.4) H 09/15/16 05:16 Assessment and Plan (1) Iron deficiency anemia Problem details: SLightly improved at last check. Status: Acute Assessment and plan: Continue Epogen. CBC in am, repeat iron studies to assess for adequacy of 1gm iron sucrose total. Current Visit: Yes (2) CKD stage 4 due to type 2 diabetes mellitus Problem details: No indication for renal replacement therapy. Pt is not a good chronic dialysis candidate due to comorbidities. Status: Acute Current Visit : Yes (3) Bedbound patient Status: Chronic Current Visit: No (4) Dementia Status: Acute Current Visit: No (5) Diabetes mellitus Status: Chronic Current Visit: No Qualifiers: Diabetes mellitus type: type 2 Diabetes mellitus complication detail: with other kidney complication (6) BPH (benign prostatic hyperplasia) Status: Acute Current Visit: Yes
[2016-09-15] MEDS: PROPOFOL 1,000 MG/100 ML BOTTLE IV SCH (16:40)
[2016-09-15] MEDS: ASPIRIN CHEW 81 MG TABLET PO SCH (21:52)
[2016-09-15] MEDS: INSULIN GLARGINE 100 UNIT/ML SUBCUT SCH (21:52)
[2016-09-15] MEDS: SIMVASTATIN 20 MG TABLET PO SCH (21:52)
[2016-09-16] MEDS: ALBUTEROL/IPRATROPIUM 3 ML NEB RESP TX SCH ×7 (00:37→23:15)
[2016-09-16] MEDS: PIPERACILLIN/TAZOBACTAM 2,250 MG in SODIUM CHLORIDE 0.9% 100 ML IV SCH ×3 (05:58→23:10)
[2016-09-16 05:59] LABS: Basophils % 0.1 % (0.0-0.8); Eosinophils # 0.7 10*3/uL (0.0-0.87); Eosinophils % 7.8 % (0.00-10.9); Hematocrit 16.3 VOL% (42.0-52.0); Immature Granulocytes % 2.9 %; Immature Granulocytes Absolute 0.25 #; Lymphocytes % 11.7 % (21.2-54.2); Mean Corpuscular HGB Conc 29.4 GM/DL (32-36); Mean Corpuscular Hemoglobin 28 PG (27-34); Mean Corpuscular Volume 93.7 FL (87-102); Mean Platelet Volume 12.3 FL (9.6-12.0); Monocytes # 0.7 10*3/uL (0.11-0.8); Monocytes % 7.9 % (1.7-12.7); NRBC # 0.08 10*3/uL; Neutrophils % 69.6 % (38.7-73.9); Platelet Count 398 T/CUMM (130-400); Red Blood Count 1.74 MC/CUMM (3.8-5.5); Red Cell Distribution Width 25.1 % (9.3-17.3); White Blood Count 8.6 T/CUMM (4-12)
[2016-09-16] MEDS: cloNIDine 0.1 MG TABLET PO SCH ×5 (05:59→21:33)
[2016-09-16 06:04] LABS: Hemoglobin 4.8 GM/DL (14.0-18.0)
[2016-09-16 06:22] LABS: Hypochromasia 1+; Microcytosis 1+; Platelet Estimate Adequate
[2016-09-16 06:34] LABS: % Iron Saturation 29.8 % (18-50); Albumin 2.6 G/DL (3.4-5.0); Calcium 9.1 MG/DL (8.5-10.1); Osmolality,Calculated 305.4 MOS/KG (273-304); Phosphorous 5.8 MG/DL (2.5-4.9); Potassium 4.2 MMOL/L (3.5-5.1)
--- NOTE | 2016-09-16 08:41 | Pulmonology Progress Note ---
Pulmonary - PN: Subj Interval history: The patient is a 61-year-old white man that is a Shinto and is in very poor condition. He apparently has been bedridden since 2008 when he had CVAs. He came in with low-grade fever and significant weight and some congestion. He has felt to have some pneumonia. He does have bilateral infiltrates. He can not give any history. He is requiring oxygen and gets hypoxemic at times. He has not been able to cough much. His hemoglobin is 4.7 family does not want him to get blood. He does have bilateral infiltrates on his chest x-ray. His VQ scan shows ventilation and perfusion matches and is intermediate and does not show definite emboli. His Dopplers of his legs are negative. Certainly would not treat him with anticoagulation. The patient has been on the ventilator and doing a little better. He did not do CPAP very well yesterday but he looks quite comfortable today. His oxygenation has improved and his hemoglobin is still 4.8. His creatinine is 3.3. He should be able to come off the ventilator soon Exam (Progress Note) - Constitutional Vitals: Period Temp Pulse Resp BP Sys/Crespo Pulse Ox Last 24 Hr 97.2 F-98.1 F 73-98 10-22 101-186/45-104 88-100 Exam: General appearance: the patient is now sedated on the ventilator and is stable. He arouses when off sedation. - Head Head exam: Present: normal inspection, normocephalic - Eye Eye exam: Present: EOMI. Absent: scleral icterus Pupils: Present: JOVANY - ENT ENT exam: Present: other (He has very pale) he has an ET tube in place. - Neck Neck exam: Present: normal inspection. Absent: lymphadenopathy, thyromegaly - Respiratory Respiratory exam: Present: He has equal breath sounds bilaterally is moving air fairly well with just some minimal rhonchi. Overall his lungs sound a little better. - Cardiovascular Cardiovascular exam: Present: regular rate and rhythm, systolic murmur (He does have a soft murmur). Absent: gallop - GI/Abdominal GI/Abdominal exam: Present: hypoactive bowel sounds, soft. Absent: organomegaly , tenderness - Extremities Exam Extremities exam: Present: other (Multiple toe amputations). Absent: calf tenderness, edema - Neurological Exam Neurological exam: Present: other (He is sedated on the ventilator now. He does arouse okay.) - Psychiatric Psychiatric exam: Absent: anxious - Skin Skin exam: Present: warm, pallor Results - Labs CBC & BMP: 09/16/16 05:18 09/16/16 05:18 Assessment and Plan (1) Anemia Status: Chronic Assessment and plan: The patient has severe anemia and refuses transfusions. Hematology is following. His last hemoglobin was 4.8. Current Visit: Yes Qualifiers: Anemia type: iron deficiency (2) Pneumonia Status: Acute Assessment and plan: Patient has been treated for aspiration pneumonia. He does have bilateral infiltrates. He does have E. coli ESBL on culture. He is on Zosyn at the present time. His oxygenation has improved on the ventilator and his chest x- ray is improving. He had a little trouble yesterday on CPAP but will see how he does today. Will repeat a chest x-ray and see if it has cleared. Hopefully he can be extubated soon. Current Visit: Yes Qualifiers: Pneumonia type: aspiration pneumonia Aspiration pneumonia type: due to gastric secretions Laterality: unspecified laterality Lung location: unspecified part of lung Qualified Code(s): J69.0 - Pneumonitis due to inhalation of food and vomit (3) Bedbound patient Status: Chronic Assessment and plan: The patient has had previous CVAs and is bedbound. He is quite debilitated. He basically has multi-infarct dementia. Current Visit: No (4) History of multiple strokes Status: Chronic Assessment and plan: Patient has had multiple CVAs and is certainly chronically ill. He is bedridden and poorly responsive. He does arouse a little bit on the ventilator. Current Visit: No (5) Diabetes mellitus Status: Chronic Assessment and plan: Glucose has been stable over the weekend. His glucose is 88 this morning. Current Visit: No Qualifiers: Diabetes mellitus type: type 2 Diabetes mellitus complication detail: with other kidney complication (6) Acute on chronic renal failure Status: Acute Assessment and plan: Creatinine is 3.3 at last check. Current Visit: Yes (7) Acute respiratory failure Status: Acute Assessment and plan: The patient is now sedated on the ventilator. His oxygenation is better. He is fairly stable on the ventilator. We will continue weaning and hopefully can extubate soon. Current Visit: Yes (8) Altered mental status Status: Acute Assessment and plan: The patient has multi-infarct dementia and is severely debilitated. He has severe anemia along with some pneumonia. He has chronic renal failure. His overall outlook is very very poor. Now is on the ventilator and has a very poor prognosis . Current Visit: Yes
--- NOTE | 2016-09-16 09:14 | Nephrology Progress Note ---
Nephrology - PN: Subj Interval history: PT resting comfortably on vent. No spontaneous eye opening. Creatinine 3.3. Hct slightly up. Ekta glabrata in urine. Exam (PN)-Nephrology - Vital Signs Vital signs: Period Temp Pulse Resp BP Sys/Crespo Pulse Ox Last 24 Hr 97.2 F-98.1 F 73-98 02-15 101-186/45-104 88-100 - General Appearance General appearance: well-developed, chronically ill, sedated on ventilator, intubated EENT: ATNC, PERRL Neck: no JVD, no thyromegaly Respiratory: no kyphosis, rales Cardiology: no murmurs, no rub Gastrointestinal: normoactive bowel sounds, no tenderness Integumentary: no rash, warm and dry Neurologic: obtunded Musculoskeletal: no deformities, no erythema - Lab 09/16/16 05:18 09/16/16 05:18 Most recent lab results ABG pH 7.530 (7.35-7.45) H 09/15/16 03:24 ABG pCO2 34.3 MM HG (35-48) L 09/15/16 03:24 ABG pO2 189.0 MM HG (80-95) H 09/15/16 03:24 ABG HCO3 28.0 MMOL/L (20-26) H 09/15/16 03:24 ABG O2 Saturation 99.1 % (95-100) 09/15/16 03:24 Calcium 9.1 MG/DL (8.5-10.1) 09/16/16 05:18 Phosphorus 5.8 MG/DL (2.5-4.9) H 09/16/16 05:18 Magnesium 3.5 MG/DL (1.8-2.4) H 09/15/16 05:16 Assessment and Plan (1) Iron deficiency anemia Problem details: Adequate iron saturations for erythropoiesis after replacement. Status: Acute Assessment and plan: Continue Epogen. otal. Current Visit: Yes (2) CKD stage 4 due to type 2 diabetes mellitus Problem details: No indication for renal replacement therapy. Pt is not a good chronic dialysis candidate due to comorbidities. Status: Acute Assessment and plan: Renally dose all meds for eGFR 20cc/min. Replace rehman catheter due to colonization with ekta glabrata. Current Visit: Yes (3) Bedbound patient Status: Chronic Current Visit: No (4) Dementia Status: Acute Current Visit: No (5) Diabetes mellitus Status: Chronic Current Visit: No Qualifiers: Diabetes mellitus type: type 2 Diabetes mellitus complication detail: with other kidney complication (6) BPH (benign prostatic hyperplasia) Status: Acute Current Visit: Yes
[2016-09-16] MEDS: TAMSULOSIN 0.4 MG CAPSULE PO SCH (09:35)
[2016-09-16] MEDS: FUROSEMIDE 40 MG/4 ML VIAL IV SCH ×2 (09:35→15:08)
[2016-09-16] MEDS: INSULIN REGULAR 100 UNIT/ML SUBCUT SCH ×4 (09:35→21:49)
[2016-09-16] MEDS: BACITRACIN OINT 0.9 GM PACK TOP SCH (09:35)
[2016-09-16] MEDS: FOLIC ACID 0.4 MG TABLET PO SCH ×2 (09:35→21:33)
[2016-09-16] MEDS: SERTRALINE 25 MG TABLET PO SCH (09:36)
[2016-09-16] MEDS: METOPROLOL TARTRATE 50 MG TABLET PO SCH ×3 (09:36→21:34)
[2016-09-16] MEDS: FINASTERIDE 5 MG TABLET PO SCH (09:36)
[2016-09-16] MEDS: CYANOCOBALAMIN 500 MCG TABLET PO SCH ×2 (09:36→21:33)
[2016-09-16] MEDS: ISOSORBIDE DINITRATE 20 MG TABLET PEG SCH ×3 (09:36→21:34)
[2016-09-16] MEDS: amLODIPine 5 MG TABLET PO SCH (09:36)
[2016-09-16] MEDS: LANSOPRAZOLE ODT 30 MG TABLET NG SCH (09:36)
[2016-09-16] MEDS: DESITIN 4OZ/NYSTATIN 15 GRAM MIXTURE PASTE TOP SCH ×2 (09:36→21:34)
--- NOTE | 2016-09-16 16:56 | Hospitalist Progress Note ---
Assessment and Plan (1) Pneumonia Status: Acute Assessment and plan: cont zosyn Current Visit: Yes Qualifiers: Pneumonia type: aspiration pneumonia Aspiration pneumonia type: due to gastric secretions Laterality: unspecified laterality Lung location: unspecified part of lung Qualified Code(s): J69.0 - Pneumonitis due to inhalation of food and vomit (2) Acute respiratory failure Status: Acute Assessment and plan: cont to wean off vent Current Visit: Yes (3) Acute on chronic renal failure Status: Acute Assessment and plan: Dr. Graham managing Current Visit: Yes (4) Iron deficiency anemia Problem details: Adequate iron saturations for erythropoiesis after replacement. Status: Acute Assessment and plan: s/p iron infusion, hgb slowing improving Current Visit: Yes (5) Diabetes mellitus Status: Chronic Assessment and plan: Hgb A1c less than 4.2, bs higher Current Visit: No Qualifiers: Diabetes mellitus type: type 2 Diabetes mellitus complication detail: with other kidney complication (6) History of multiple strokes Status: Chronic Assessment and plan: cont asa Current Visit: No (7) Hypertension Status: Chronic Assessment and plan: cont clonidine and norvasc Current Visit: No Qualifiers: Hypertension type: essential hypertension Qualified Code(s): I10 - Essential (primary) hypertension Hospitalist: Subjective Interval history: K patient's sister and update. Sister reports he has not walked in 9 years. She says usually is more alert and interactive. Still seems rather lethargic. He did better on his weaning trials today. Exam - Constitutional Vitals: Period Temp Pulse Resp BP Sys/Crespo Pulse Ox Last 24 Hr 97.2 F-98.3 F 73-96 10-23 101-169/49-75 92-100 Exam: HR-RRR Lung clear GI +bs soft and nontender skin pale Neuro opens eyes to command but too lethargic psych unable to evaluate due to lethargy general no acute distress Results - Labs CBC & BMP: 09/16/16 05:18 09/16/16 05:18 Lab Results: I have reviewed the past 24 hour labs Labs: Urine growing Ekta glabrata. Sputum culture growing ESBL. Blood cultures negative no growth - Diagnostic Findings Procedure: Chest x-ray: report reviewed by me (Left lower lobe infiltrate pleural effusion) Quality Measures - VTE Contraindication to Pharmacological VTE Prophylaxis: High Risk of Bleeding
[2016-09-16] MEDS: PROPOFOL 1,000 MG/100 ML BOTTLE IV SCH ×2 (17:48)
[2016-09-16 18:21] LABS: Apearance,Urine CLEAR (Clear); Bilirubin,Urine Negative (Negative); Blood, Urine Small mg/dL (Negative); Glucose,Urine (UA) Negative (Negative); Ketones,Urine Negative (Negative); Mucus,Urine Occasional /LPF (Occasional); Nitrite,Urine Negative (Negative); Protein,Urine 100 MG/DL; RBC,Urine 5 /HPF (0-4); Squamous Epithelial Cell,Urine Occasional /HPF (0-10); Urine Color Straw (Yellow); Urine Specific Gravity 1.005 (1.001-1.035); Urine Urobilinogen < 2.0 EU/DL (0.2-1.0); WBC,Urine 25 /HPF (0-6)
[2016-09-16] MEDS: ASPIRIN CHEW 81 MG TABLET PO SCH (21:33)
[2016-09-16] MEDS: SIMVASTATIN 20 MG TABLET PO SCH (21:34)
[2016-09-16] MEDS: INSULIN GLARGINE 100 UNIT/ML SUBCUT SCH (21:34)
[2016-09-17] MEDS: ALBUTEROL/IPRATROPIUM 3 ML NEB RESP TX SCH ×6 (02:57→23:39)
[2016-09-17 05:01] LABS: Basophils % 0.2 % (0.0-0.8); Eosinophils # 0.8 10*3/uL (0.0-0.87); Eosinophils % 8.8 % (0.00-10.9); Hematocrit 18.1 VOL% (42.0-52.0); Immature Granulocytes % 4.7 %; Immature Granulocytes Absolute 0.41 #; Lymphocytes # 0.8 10*3/uL (1.4-4.0); Lymphocytes % 8.9 % (21.2-54.2); Mean Corpuscular HGB Conc 28.7 GM/DL (32-36); Mean Corpuscular Hemoglobin 28 PG (27-34); Mean Corpuscular Volume 98.4 FL (87-102); Monocytes # 0.8 10*3/uL (0.11-0.8); NRBC # 0.14 10*3/uL; Neutrophils # 5.9 10*3/uL (1.4-7.4); Neutrophils % 68.4 % (38.7-73.9); Platelet Count 438 T/CUMM (130-400); Red Blood Count 1.84 MC/CUMM (3.8-5.5); Red Cell Distribution Width 26.6 % (9.3-17.3); White Blood Count 8.6 T/CUMM (4-12)
[2016-09-17 05:10] LABS: Hemoglobin 5.2 GM/DL (14.0-18.0)
[2016-09-17 05:28] LABS: Microcytosis 1+
[2016-09-17 05:29] LABS: Hypochromasia 1+; Platelet Estimate Increased; Polychromasia Slight
[2016-09-17] MEDS: cloNIDine 0.1 MG TABLET PO SCH ×5 (05:50→21:20)
[2016-09-17] MEDS: PIPERACILLIN/TAZOBACTAM 2,250 MG in SODIUM CHLORIDE 0.9% 100 ML IV SCH ×3 (05:50→21:20)
[2016-09-17] MEDS: PROPOFOL 1,000 MG/100 ML BOTTLE IV SCH (05:52)
[2016-09-17 06:00] LABS: Apearance,Urine CLOUDY (Clear); Bacteria,Urine Occasional /HPF (Few); Bilirubin,Urine Negative (Negative); Blood, Urine Small mg/dL (Negative); Glucose,Urine (UA) Negative (Negative); Ketones,Urine Negative (Negative); Mucus,Urine Occasional /LPF (Occasional); Nitrite,Urine Negative (Negative); Protein,Urine 100 MG/DL; RBC,Urine 22 /HPF (0-4); Squamous Epithelial Cell,Urine Occasional /HPF (0-10); Urine Color Yellow (Yellow); Urine Specific Gravity 1.011 (1.001-1.035); Urine Urobilinogen < 2.0 EU/DL (0.2-1.0); WBC,Urine 222 /HPF (0-6)
--- NOTE | 2016-09-17 06:55 | XRay Report ---
Referring Physician: Brett Lord MD Exam: XR chest 1V portable Date: September 17, 2016 at 3:09 AM Reason: Ventilation Comparison: Chest one view portable September 15, 2016 Findings: An endotracheal tube is again in place. The patient is rotated to the right, but the heart appears stable in size. There is a prominent skinfold artifact at the left upper lung zone, but no definite pneumothorax is identified. There are persistent hazy opacities within both lower lung zones. This could represent pulmonary edema and/or pneumonia with atelectasis. Minimal bilateral pleural fluid is suspected. The osseous structures appear stable. Impression: The patient is rotated today to the right, which makes comparison difficult. However, there appears to be improved aeration of the left lower lung zone. PROCEDURE INTERPRETED AT [facility] DEPARTMENT OF RADIOLOGY Final Report Signed by: Dr. Dawit Preston
--- NOTE | 2016-09-17 08:08 | Pulmonology Progress Note ---
Pulmonary - PN: Subj Interval history: The patient is a 61-year-old white man that is a Latter day and is in very poor condition. He has had pneumonias been on the ventilator. He has chronic renal insufficiency. His hemoglobin is up to 5.2 today. The patient has had multi-infarct dementia. At present he is reasonably stable on the ventilator. He did CPAP trials for hours yesterday. His chest x-ray is rotated but looks reasonably clear. Will try him off the ventilator today. Exam (Progress Note) - Constitutional Vitals: Period Temp Pulse Resp BP Sys/Crespo Pulse Ox Last 24 Hr 97.4 F-98.3 F 66-96 8-23 91-189/43-73 93-100 Exam: General appearance: the patient is more awake but does not do much activity. - Head Head exam: Present: normal inspection, normocephalic - Eye Eye exam: Present: EOMI. Absent: scleral icterus Pupils: Present: JOVANY - ENT ENT exam: Present: other (He has very pale) he has an ET tube in place. - Neck Neck exam: Present: normal inspection. Absent: lymphadenopathy, thyromegaly - Respiratory Respiratory exam: Present: He has equal breath sounds bilaterally and he is moving air well without any wheezing now. - Cardiovascular Cardiovascular exam: Present: regular rate and rhythm, systolic murmur (He does have a soft murmur). Absent: gallop - GI/Abdominal GI/Abdominal exam: Present: hypoactive bowel sounds, soft. Absent: organomegaly , tenderness - Extremities Exam Extremities exam: Present: other (Multiple toe amputations). Absent: calf tenderness, edema - Neurological Exam Neurological exam: Present: other (He is awake and more responsive.) - Psychiatric Psychiatric exam: Absent: anxious - Skin Skin exam: Present: warm, pallor Results - Labs CBC & BMP: 09/17/16 04:14 09/16/16 05:18 - Diagnostic Findings Procedure: Chest x-ray: image reviewed by me, report reviewed by me (Chest x- ray has less infiltrates.) Assessment and Plan (1) Anemia Status: Chronic Assessment and plan: The patient has severe anemia and refuses transfusions. His hemoglobin was 5.2 today. Current Visit: Yes Qualifiers: Anemia type: iron deficiency (2) Pneumonia Status: Acute Assessment and plan: Patient has been treated for aspiration pneumonia. He does have bilateral infiltrates. He does have E. coli ESBL on culture. He is on Zosyn at the present time. His oxygenation has improved on the ventilator and his chest x- ray is improving. He has been doing CPAP well and will try him off the ventilator now Current Visit: Yes Qualifiers: Pneumonia type: aspiration pneumonia Aspiration pneumonia type: due to gastric secretions Laterality: unspecified laterality Lung location: unspecified part of lung Qualified Code(s): J69.0 - Pneumonitis due to inhalation of food and vomit (3) Bedbound patient Status: Chronic Assessment and plan: The patient has had previous CVAs and is bedbound. He is quite debilitated. He basically has multi-infarct dementia. Current Visit: No (4) History of multiple strokes Status: Chronic Assessment and plan: Patient has had multiple CVAs and is certainly chronically ill. He is bedridden but he is a little more responsive today. Current Visit: No (5) Diabetes mellitus Status: Chronic Assessment and plan: Glucose has been stable over the weekend. His glucoses are being monitored. Current Visit: No Qualifiers: Diabetes mellitus type: type 2 Diabetes mellitus complication detail: with other kidney complication (6) Acute on chronic renal failure Status: Acute Assessment and plan: Creatinine is 3.3 at last check. Current Visit: Yes (7) Acute respiratory failure Status: Acute Assessment and plan: The patient has better oxygenation and his chest x-ray is improved. He has been doing CPAP well. We will will extubate today. Current Visit: Yes (8) Altered mental status Status: Acute Assessment and plan: The patient has multi-infarct dementia and is severely debilitated. He has severe anemia along with some pneumonia. He has chronic renal failure. His overall outlook is very very poor. Current Visit: Yes
--- NOTE | 2016-09-17 08:33 | Nephrology Progress Note ---
Nephrology - PN: Subj Interval history: Hgb increasing. Pt follows with eyes. Shakes head no to "pain?". Exam (PN)-Nephrology - Vital Signs Vital signs: Period Temp Pulse Resp BP Sys/Crespo Pulse Ox Last 24 Hr 97.4 F-98.3 F 66-96 8-23 91-189/43-73 93-100 - General Appearance General appearance: well-developed, chronically ill, intubated EENT: ATNC, PERRL Neck: no JVD, no thyromegaly Respiratory: no kyphosis, rales Cardiology: no murmurs, no rub Gastrointestinal: normoactive bowel sounds, no tenderness Integumentary: no rash, warm and dry Neurologic: no focal deficit, no asterixis Musculoskeletal: no deformities, no erythema Psychiatric: cooperative - Lab 09/17/16 04:14 09/16/16 05:18 Most recent lab results ABG pH 7.530 (7.35-7.45) H 09/15/16 03:24 ABG pCO2 34.3 MM HG (35-48) L 09/15/16 03:24 ABG pO2 189.0 MM HG (80-95) H 09/15/16 03:24 ABG HCO3 28.0 MMOL/L (20-26) H 09/15/16 03:24 ABG O2 Saturation 99.1 % (95-100) 09/15/16 03:24 Calcium 9.1 MG/DL (8.5-10.1) 09/16/16 05:18 Phosphorus 5.8 MG/DL (2.5-4.9) H 09/16/16 05:18 Magnesium 3.5 MG/DL (1.8-2.4) H 09/15/16 05:16 Assessment and Plan (1) Iron deficiency anemia Problem details: Adequate iron saturations for erythropoiesis after replacement. Status: Acute Assessment and plan: Continue Epogen. TIW. Current Visit: Yes (2) CKD stage 4 due to type 2 diabetes mellitus Problem details: No indication for renal replacement therapy. Pt is not a good chronic dialysis candidate due to comorbidities. Status: Acute Assessment and plan: Renally dose all meds for eGFR 20cc/min. Replaced rehman catheter due to colonization with kiran glabrata. Start diflucan, renally dosed, 200mg IV q24h x 3 doses, ordered. Current Visit: Yes (3) Bedbound patient Status: Chronic Current Visit: No (4) Dementia Status: Acute Current Visit: No (5) Diabetes mellitus Status: Chronic Current Visit: No Qualifiers: Diabetes mellitus type: type 2 Diabetes mellitus complication detail: with other kidney complication (6) BPH (benign prostatic hyperplasia) Status: Acute Current Visit: Yes
--- NOTE | 2016-09-17 08:36 | Nephrology Progress Note ---
Nephrology - PN: Subj Interval history: Opens eyes and follows. Denies pain by shaking head no. Hgb improved. Exam (PN)-Nephrology - Vital Signs Vital signs: Period Temp Pulse Resp BP Sys/Crespo Pulse Ox Last 24 Hr 97.4 F-98.3 F 66-96 8-23 91-189/43-73 93-100 - General Appearance General appearance: well-developed, chronically ill, intubated EENT: ATNC, PERRL Neck: no JVD, no thyromegaly Respiratory: no kyphosis, rales Cardiology: no murmurs, no rub Gastrointestinal: normoactive bowel sounds, no tenderness Integumentary: no rash, warm and dry Neurologic: no focal deficit, no asterixis Musculoskeletal: no deformities, no erythema Psychiatric: cooperative - Lab 09/17/16 04:14 09/16/16 05:18 Most recent lab results ABG pH 7.530 (7.35-7.45) H 09/15/16 03:24 ABG pCO2 34.3 MM HG (35-48) L 09/15/16 03:24 ABG pO2 189.0 MM HG (80-95) H 09/15/16 03:24 ABG HCO3 28.0 MMOL/L (20-26) H 09/15/16 03:24 ABG O2 Saturation 99.1 % (95-100) 09/15/16 03:24 Calcium 9.1 MG/DL (8.5-10.1) 09/16/16 05:18 Phosphorus 5.8 MG/DL (2.5-4.9) H 09/16/16 05:18 Magnesium 3.5 MG/DL (1.8-2.4) H 09/15/16 05:16 Assessment and Plan (1) Iron deficiency anemia Problem details: Adequate iron saturations for erythropoiesis after replacement. Status: Acute Assessment and plan: Continue Epogen. TIW. Current Visit: Yes (2) CKD stage 4 due to type 2 diabetes mellitus Problem details: No indication for renal replacement therapy. Pt is not a good chronic dialysis candidate due to comorbidities. Status: Acute Assessment and plan: Renally dose all meds for eGFR 20cc/min. Replaced rehman catheter due to colonization with kiran glabrata. Start diflucan, renally dosed, 200mg IV q24h x 3 doses, ordered. Current Visit: Yes (3) Bedbound patient Status: Chronic Current Visit: No (4) Dementia Status: Acute Current Visit: No (5) Diabetes mellitus Status: Chronic Current Visit: No Qualifiers: Diabetes mellitus type: type 2 Diabetes mellitus complication detail: with other kidney complication (6) BPH (benign prostatic hyperplasia) Status: Acute Current Visit: Yes
[2016-09-17] MEDS: INSULIN REGULAR 100 UNIT/ML SUBCUT SCH ×4 (09:41→21:20)
[2016-09-17] MEDS: FUROSEMIDE 40 MG/4 ML VIAL IV SCH (09:42)
[2016-09-17] MEDS: BACITRACIN OINT 0.9 GM PACK TOP SCH (09:43)
[2016-09-17] MEDS: EPOETIN ALFA 10,000 UNIT/1 ML VIAL SUBCUT SCH (09:43)
[2016-09-17] MEDS: LANSOPRAZOLE ODT 30 MG TABLET NG SCH (09:44)
[2016-09-17] MEDS: ISOSORBIDE DINITRATE 20 MG TABLET PEG SCH ×3 (09:44→21:20)
[2016-09-17] MEDS: amLODIPine 5 MG TABLET PO SCH ×2 (09:44→21:20)
[2016-09-17] MEDS: TAMSULOSIN 0.4 MG CAPSULE PO SCH (09:44)
[2016-09-17] MEDS: FINASTERIDE 5 MG TABLET PO SCH (09:44)
[2016-09-17] MEDS: METOPROLOL TARTRATE 50 MG TABLET PO SCH (09:44)
[2016-09-17] MEDS: SERTRALINE 25 MG TABLET PO SCH (09:45)
[2016-09-17] MEDS: DESITIN 4OZ/NYSTATIN 15 GRAM MIXTURE PASTE TOP SCH ×2 (09:45→21:20)
[2016-09-17] MEDS: CYANOCOBALAMIN 500 MCG TABLET PO SCH ×2 (09:45→21:20)
[2016-09-17] MEDS: FOLIC ACID 0.4 MG TABLET PO SCH ×2 (09:54→21:20)
[2016-09-17] MEDS: FLUCONAZOLE INJ 200 MG in PREMIX 1 EACH IV SCH (09:55)
--- NOTE | 2016-09-17 11:14 | Hospitalist Progress Note ---
Assessment and Plan (1) Pneumonia Status: Acute Assessment and plan: cont zosyn Current Visit: Yes Qualifiers: Pneumonia type: aspiration pneumonia Aspiration pneumonia type: due to gastric secretions Laterality: unspecified laterality Lung location: unspecified part of lung Qualified Code(s): J69.0 - Pneumonitis due to inhalation of food and vomit (2) Acute respiratory failure Status: Acute Assessment and plan: should be able to extubate today, cont lasix at 40 mg IV daily Current Visit: Yes (3) Acute on chronic renal failure Status: Acute Assessment and plan: stable, bmp in am, Dr Graham following Current Visit: Yes (4) Iron deficiency anemia Problem details: Adequate iron saturations for erythropoiesis after replacement. Status: Acute Assessment and plan: s/p iron infusion, hgb slowing improving Current Visit: Yes (5) Diabetes mellitus Status: Chronic Assessment and plan: Hgb A1c less than 4.2, bs better after restarting lantus Current Visit: No Qualifiers: Diabetes mellitus type: type 2 Diabetes mellitus complication detail: with other kidney complication (6) History of multiple strokes Status: Chronic Assessment and plan: cont asa Current Visit: No (7) Hypertension Status: Chronic Assessment and plan: not controlled, increase norvasc to 5 mg po bid, cont clonidine, stop metoprolol and start coreg Current Visit: No Qualifiers: Hypertension type: essential hypertension Qualified Code(s): I10 - Essential (primary) hypertension (8) Ekta glabrata infection Status: Acute Assessment and plan: cont diflucan, Dr Arguello recommends not treating, rehman replaced and still has yeast, I agree with treatment Current Visit: Yes Hospitalist: Subjective Interval history: Hopefully will extubate patient today. Spoke with Dr. Graham regarding his Lasix and wanted to keep it on board for now. Will recheck a BMP in the morning. Spoke with his sister and he would like her to go to [facility]. Exam - Constitutional Vitals: Period Temp Pulse Resp BP Sys/Crespo Pulse Ox Last 24 Hr 97.4 F-98.3 F 66-101 8-29 91-189/43-78 93-100 Exam: HR-RRR Lung clear GI +bs soft and nontender skin pale Neuro opens eyes to command but too lethargic psych unable to evaluate due to lethargy general no acute distress Results - Labs CBC & BMP: 09/17/16 04:14 09/16/16 05:18 Lab Results: I have reviewed the past 24 hour labs Quality Measures - VTE Contraindication to Pharmacological VTE Prophylaxis: High Risk of Bleeding
[2016-09-17] MEDS ORDERED: PHENOL 1.4% THROAT SPRAY 177 ML BOTTLE PO PRN (17:31)
--- NOTE | 2016-09-17 19:38 | ECHO Report ---
Derick Kim Exam Date: 09/17/2016 13:17 Referring Physician: Technologist: Evan Shah Age: 61 Ht (in): 67 Wt (lb): 176 Gender: M Exam Location: [facility] Echo Indications: SOB, pneumonia, acute resp. failure, anemia, diabetes BP: 189 / 78 HR: 101 Rhythm: Sinus Technical Quality: IMPRESSIONS Normal left ventricular size, with mild eccentric hypertrophy, more prominent on the septum. There is no outflow tract obstruction. Normal systolic function, estimated left ventricular ejection fraction 60%. Grade 2 diastolic dysfunction. Mild mitral valve sclerosis. Mild mitral valve regurgitation. Aortic valve sclerosis, without stenosis, with mild insufficiency. Mild pulmonary hypertension. Mild pulmonic valve insufficiency. MEASUREMENTS (Male / Female) Normal Values 2D ECHO LV Diastolic Diameter PLAX 4.1 cm 4.2 - 5.9 / 3.9 - 5.3 cm LV Systolic Diameter PLAX 2.9 cm LV Fractional Shortening PLAX 29.5 % IVS Diastolic Thickness 1.3 cm 0.6 - 1.0 / 0.6 - 0.9 cm LVPW Diastolic Thickness 1.5 cm 0.6 - 1.0 / 0.6 - 0.9 cm RV Internal Dim ED PLAX 2.7 cm Aortic Root Diameter 3.8 cm LA Systolic Diameter LX 4.0 cm 3.0 - 4.0 / 2.7 - 3.8 cm DOPPLER TR Peak Velocity 297.0 cm/s TR Peak Gradient 35.3 mmHg FINDINGS Left Ventricle Normal left ventricular size, with mild eccentric hypertrophy, more prominent on the septum. There is no outflow tract obstruction. Normal systolic function, estimated left ventricular ejection fraction 60%. Grade 2 diastolic dysfunction. Right Ventricle Normal right ventricular size. Right Atrium Normal right atrial size. Left Atrium Mild left atrial enlargement. Mitral Valve Mild mitral valve sclerosis. Mild mitral valve regurgitation. Aortic Valve Aortic valve sclerosis, without stenosis, with mild insufficiency. Tricuspid Valve Morphologically normal tricuspid valve. Mild tricuspid regurgitation velocities suggest a PAP of 45 mmHg. Pulmonic Valve Structurally normal pulmonic valve, with mild insufficiency. Pericardium No pericardial effusion. Aorta Normal size aortic root and proximal ascending aorta. Damon Holland (Electronically Signed) Final Date: 17 Sep 2016 19:37
[2016-09-17] MEDS: ASPIRIN CHEW 81 MG TABLET PO SCH (21:19)
[2016-09-17] MEDS: CARVEDILOL 6.25 MG TABLET PO SCH (21:19)
[2016-09-17] MEDS: INSULIN GLARGINE 100 UNIT/ML SUBCUT SCH (21:20)
[2016-09-17] MEDS: SIMVASTATIN 20 MG TABLET PO SCH (21:20)
[2016-09-18] MEDS: ALBUTEROL/IPRATROPIUM 3 ML NEB RESP TX SCH ×6 (03:52→23:52)
[2016-09-18] MEDS: cloNIDine 0.1 MG TABLET PO SCH ×5 (06:30→21:17)
[2016-09-18] MEDS: PIPERACILLIN/TAZOBACTAM 2,250 MG in SODIUM CHLORIDE 0.9% 100 ML IV SCH ×3 (06:30→21:17)
[2016-09-18 06:46] LABS: Basophils % 0.4 % (0.0-0.8); Eosinophils # 0.8 10*3/uL (0.0-0.87); Eosinophils % 6.9 % (0.00-10.9); Hematocrit 21.1 VOL% (42.0-52.0); Immature Granulocytes Absolute 0.79 #; Lymphocytes # 0.8 10*3/uL (1.4-4.0); Lymphocytes % 6.8 % (21.2-54.2); Mean Corpuscular HGB Conc 29.9 GM/DL (32-36); Mean Corpuscular Hemoglobin 29 PG (27-34); Mean Corpuscular Volume 98.1 FL (87-102); Mean Platelet Volume 11.7 FL (9.6-12.0); Monocytes # 0.8 10*3/uL (0.11-0.8); Monocytes % 7.5 % (1.7-12.7); NRBC # 0.08 10*3/uL; Neutrophils % 71.4 % (38.7-73.9); Platelet Count 555 T/CUMM (130-400); Red Blood Count 2.15 MC/CUMM (3.8-5.5); Red Cell Distribution Width 27.9 % (9.3-17.3); White Blood Count 11.2 T/CUMM (4-12)
[2016-09-18 07:45] LABS: Band Neutrophils 3 % (0-10); Hemoglobin 6.3 GM/DL (14.0-18.0); Lymphocytes 8 % (20-55); Segmented Neutrophils 84 % (50-85)
[2016-09-18 07:46] LABS: Macrocytosis 1+; Platelet Estimate Increased; Polychromasia 1+; Total Cells Counted 100
[2016-09-18 07:58] LABS: Calcium 9.1 MG/DL (8.5-10.1); Osmolality,Calculated 304.5 MOS/KG (273-304); Potassium 4.2 MMOL/L (3.5-5.1)
[2016-09-18] MEDS: INSULIN REGULAR 100 UNIT/ML SUBCUT SCH ×4 (08:07→21:16)
[2016-09-18] MEDS: CARVEDILOL 6.25 MG TABLET PO SCH (08:52)
[2016-09-18] MEDS: TAMSULOSIN 0.4 MG CAPSULE PO SCH (08:52)
[2016-09-18] MEDS: BACITRACIN OINT 0.9 GM PACK TOP SCH (08:52)
[2016-09-18] MEDS: FOLIC ACID 0.4 MG TABLET PO SCH ×2 (08:52→21:16)
[2016-09-18] MEDS: ISOSORBIDE DINITRATE 20 MG TABLET PEG SCH ×3 (08:52→21:17)
[2016-09-18] MEDS: FINASTERIDE 5 MG TABLET PO SCH (08:53)
[2016-09-18] MEDS: LANSOPRAZOLE ODT 30 MG TABLET NG SCH (08:53)
[2016-09-18] MEDS: CYANOCOBALAMIN 500 MCG TABLET PO SCH ×2 (08:53→21:17)
[2016-09-18] MEDS: FLUCONAZOLE INJ 200 MG in PREMIX 1 EACH IV SCH (08:53)
[2016-09-18] MEDS: SERTRALINE 25 MG TABLET PO SCH (08:53)
[2016-09-18] MEDS: amLODIPine 5 MG TABLET PO SCH ×2 (08:53→21:17)
[2016-09-18] MEDS: DESITIN 4OZ/NYSTATIN 15 GRAM MIXTURE PASTE TOP SCH ×2 (08:54→21:17)
[2016-09-18] MEDS ORDERED: FUROSEMIDE 40 MG/4 ML VIAL IV SCH (09:00)
[2016-09-18] MEDS: CARVEDILOL 12.5 MG TABLET PO SCH ×2 (11:37→21:16)
--- NOTE | 2016-09-18 12:16 | Pulmonology Progress Note ---
Pulmonary - PN: Subj Interval history: The patient is a 61-year-old white man that is a [employer]ism and is in very poor condition. He has had pneumonia and has been on the ventilator. He has chronic renal insufficiency. His hemoglobin is up to 6.3 today. The patient has had multi-infarct dementia. Yesterday he was extubated and has done fairly well. He still has some infiltrate in his right lung. He is requiring facemask O2 or he will drop his O2 saturation. He still has a very poor cough. He does not seem to be in any distress now. Exam (Progress Note) - Constitutional Vitals: Period Temp Pulse Resp BP Sys/Crespo Pulse Ox Last 24 Hr 97.0 F-98.4 F 21-116 8-29 102-198/49-83 90-100 Exam: General appearance: the patient is more awake and seems to be responding a little better. He looks comfortable on facemask O2. - Head Head exam: Present: normal inspection, normocephalic - Eye Eye exam: Present: EOMI. Absent: scleral icterus Pupils: Present: JOVANY - ENT ENT exam: Present: other (He has very pale) - Neck Neck exam: Present: normal inspection. Absent: lymphadenopathy, thyromegaly - Respiratory Respiratory exam: Present: He has equal breath sounds bilaterally but he does have some crackles in the right chest. - Cardiovascular Cardiovascular exam: Present: regular rate and rhythm, systolic murmur (He does have a soft murmur). Absent: gallop - GI/Abdominal GI/Abdominal exam: Present: hypoactive bowel sounds, soft. Absent: organomegaly , tenderness - Extremities Exam Extremities exam: Present: other (Multiple toe amputations). Absent: calf tenderness, edema - Neurological Exam Neurological exam: Present: other (He is awake and more responsive.) - Psychiatric Psychiatric exam: Absent: anxious - Skin Skin exam: Present: warm, pallor Results - Labs CBC & BMP: 09/18/16 04:00 09/18/16 07:00 - Diagnostic Findings Procedure: Chest x-ray: image reviewed by me, report reviewed by me (Chest x- ray still shows some right lung infiltrate.) Assessment and Plan (1) Anemia Status: Chronic Assessment and plan: The patient has severe anemia and refuses transfusions. His hemoglobin was 6.3 today. Current Visit: Yes Qualifiers: Anemia type: iron deficiency (2) Pneumonia Status: Acute Assessment and plan: Patient has been treated for aspiration pneumonia. He still has some right lung infiltrate but is breathing better. He will continue with antibiotics. Current Visit: Yes Qualifiers: Pneumonia type: aspiration pneumonia Aspiration pneumonia type: due to gastric secretions Laterality: unspecified laterality Lung location: unspecified part of lung Qualified Code(s): J69.0 - Pneumonitis due to inhalation of food and vomit (3) Bedbound patient Status: Chronic Assessment and plan: The patient has had previous CVAs and is bedbound. He is quite debilitated. He basically has multi-infarct dementia. Current Visit: No (4) History of multiple strokes Status: Chronic Assessment and plan: Patient has had multiple CVAs and is certainly chronically ill. He is bedridden but he is a little more responsive today. He is still very debilitated. Current Visit: No (5) Diabetes mellitus Status: Chronic Assessment and plan: Glucose has been stable over the weekend. His glucoses are being monitored. His glucose is 121 this morning. Current Visit: No Qualifiers: Diabetes mellitus type: type 2 Diabetes mellitus complication detail: with other kidney complication (6) Acute on chronic renal failure Status: Acute Assessment and plan: Creatinine is 3.2 today. Current Visit: Yes (7) Acute respiratory failure Status: Acute Assessment and plan: The patient has done okay off the ventilator but does require some oxygen. He has very poor pulmonary toilet. Current Visit: Yes (8) Altered mental status Status: Acute Assessment and plan: The patient has multi-infarct dementia and is severely debilitated. He has severe anemia along with some pneumonia. He has chronic renal failure. His overall outlook is very very poor. Current Visit: Yes
--- NOTE | 2016-09-18 12:18 | Nephrology Progress Note ---
Nephrology - PN: Subj Interval history: Pt extubated. SaO2 99%. UOP adequate. Net negative each day. Hgb up to 6.3, WBC 11k from 8.6k. Creatinine 3.2 from 3.3. eGFR 22cc/min. Does not respond to simple questions. Exam (PN)-Nephrology - Vital Signs Vital signs: Period Temp Pulse Resp BP Sys/Crespo Pulse Ox Last 24 Hr 97.0 F-98.4 F 21-116 11-29 102-198/49-83 90-100 - General Appearance General appearance: well-developed, chronically ill EENT: ATNC, PERRL, mucous membranes dry, hearing intact Neck: no JVD, no thyromegaly Respiratory: no kyphosis, clear Cardiology: no murmurs, no rub, edema (2+ pitting to knees bilat and dependent edema in thighs) Gastrointestinal: normoactive bowel sounds, no tenderness Integumentary: no rash Neurologic: no asterixis, hemiplegic Musculoskeletal: no deformities, no erythema - Lab 09/18/16 04:00 09/18/16 07:00 Most recent lab results ABG pH 7.530 (7.35-7.45) H 09/15/16 03:24 ABG pCO2 34.3 MM HG (35-48) L 09/15/16 03:24 ABG pO2 189.0 MM HG (80-95) H 09/15/16 03:24 ABG HCO3 28.0 MMOL/L (20-26) H 09/15/16 03:24 ABG O2 Saturation 99.1 % (95-100) 09/15/16 03:24 Calcium 9.1 MG/DL (8.5-10.1) 09/18/16 07:00 Phosphorus 5.8 MG/DL (2.5-4.9) H 09/16/16 05:18 Magnesium 3.5 MG/DL (1.8-2.4) H 09/15/16 05:16 Assessment and Plan (1) Iron deficiency anemia Problem details: Adequate iron saturations for erythropoiesis after replacement. Status: Acute Assessment and plan: Continue Epogen. TIW. Current Visit: Yes (2) CKD stage 4 due to type 2 diabetes mellitus Problem details: No indication for renal replacement therapy. Pt is not a good chronic dialysis candidate due to comorbidities. Status: Acute Assessment and plan: Renally dose all meds for eGFR 20cc/min. Repeat uCx pending. Continue diflucan, renally dosed, 200mg IV q24h x 3 doses, ordered. Current Visit: Yes (3) Bedbound patient Status: Chronic Current Visit: No (4) Dementia Status: Acute Current Visit: No (5) Diabetes mellitus Status: Chronic Current Visit: No Qualifiers: Diabetes mellitus type: type 2 Diabetes mellitus complication detail: with other kidney complication (6) BPH (benign prostatic hyperplasia) Status: Acute Current Visit: Yes
--- NOTE | 2016-09-18 12:25 | Hospitalist Progress Note ---
Assessment and Plan (1) Pneumonia Status: Acute Assessment and plan: cont zosyn Current Visit: Yes Qualifiers: Pneumonia type: aspiration pneumonia Aspiration pneumonia type: due to gastric secretions Laterality: unspecified laterality Lung location: unspecified part of lung Qualified Code(s): J69.0 - Pneumonitis due to inhalation of food and vomit (2) Acute respiratory failure Status: Acute Assessment and plan: BNP still over 700 cont lasix at 40 mg IV bid Current Visit: Yes (3) Acute on chronic renal failure Status: Acute Assessment and plan: stable, Current Visit: Yes (4) Iron deficiency anemia Problem details: Adequate iron saturations for erythropoiesis after replacement. Status: Acute Assessment and plan: s/p iron infusion, hgb slowing improving Current Visit: Yes (5) Diabetes mellitus Status: Chronic Assessment and plan: Hgb A1c less than 4.2, bs better after restarting lantus Current Visit: No Qualifiers: Diabetes mellitus type: type 2 Diabetes mellitus complication detail: with other kidney complication (6) History of multiple strokes Status: Chronic Assessment and plan: cont asa Current Visit: No (7) Hypertension Status: Chronic Assessment and plan: not controlled, increase coreg to 12.5 mg po bid, cont norvasc to 5 mg po bid and clonidine Current Visit: No Qualifiers: Hypertension type: essential hypertension Qualified Code(s): I10 - Essential (primary) hypertension (8) Ekta glabrata infection Status: Acute Assessment and plan: cont diflucan for 3 days, also growing gram negative rods despite zosyn Current Visit: Yes Hospitalist: Subjective Interval history: We will have speech see him today. His sister has for the third time changed where she wants him to go. His blood pressure is still too high and not increased his Coreg. He is currently tolerating a 50% Ventimask. We will see if he can go to [facility] today or tomorrow. Exam - Constitutional Vitals: Period Temp Pulse Resp BP Sys/Crespo Pulse Ox Last 24 Hr 97.0 F-98.3 F 65-99 14-29 102-198/49-90 90-100 Exam: HR-RRR Lung clear but very diminished GI +bs soft and nontender skin pale Neuro opens eyes to command but still lethargic psych depressed mood and affect general no acute distress Results - Labs CBC & BMP: 09/18/16 04:00 09/18/16 07:00 Lab Results: I have reviewed the past 24 hour labs Quality Measures - VTE Contraindication to Pharmacological VTE Prophylaxis: High Risk of Bleeding
--- NOTE | 2016-09-18 14:03 | XRay Report ---
Referring Physician: Brett Lord MD Exam: XR chest 1V portable Date: September 18, 2016 at 3:13 AM Reason: On ventilator Comparison: Chest one view portable September 17, 2016 Findings: The previously seen endotracheal tube is not identified. The cardiac silhouette is again mildly enlarged. There are patchy opacities throughout the right lung and within the left lower lung zone. This is concerning for pneumonia, atelectasis and possibly pulmonary edema. No pneumothorax is identified, but minimal bilateral pleural fluid is suspected. The osseous structures appear stable. Impression: The patient is less rotated today. The opacities within the right lung have increased since the previous study. PROCEDURE INTERPRETED AT [facility] DEPARTMENT OF RADIOLOGY Final Report Signed by: Dr. Dawit Preston
[2016-09-18] MEDS: ASPIRIN CHEW 81 MG TABLET PO SCH (21:16)
[2016-09-18] MEDS: INSULIN GLARGINE 100 UNIT/ML SUBCUT SCH (21:17)
[2016-09-18] MEDS: FUROSEMIDE 40 MG/4 ML VIAL IV SCH (21:17)
[2016-09-18] MEDS: SIMVASTATIN 20 MG TABLET PO SCH (21:17)
[2016-09-19] MEDS: ALBUTEROL/IPRATROPIUM 3 ML NEB RESP TX SCH ×6 (04:26→23:14)
[2016-09-19] MEDS: PIPERACILLIN/TAZOBACTAM 2,250 MG in SODIUM CHLORIDE 0.9% 100 ML IV SCH ×2 (05:48→15:44)
[2016-09-19] MEDS: cloNIDine 0.1 MG TABLET PO SCH ×4 (05:48→20:53)
--- NOTE | 2016-09-19 08:46 | Pulmonology Progress Note ---
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 He has had pneumonia and has been on the ventilator. He has chronic renal insufficiency. His hemoglobin is up to 6.3. The patient has had multi-infarct dementia. He came off the ventilator okay although he still requires some oxygen. He actually looks much better today. He is more responsive and looking around. He does not appear to be in any respiratory distress. He has very poor bronchopulmonary toilet. He does not seem to be in any distress however. His vital signs are stable. Overall he is stable and can move to a regular room. Exam (Progress Note) - Constitutional Vitals: Period Temp Pulse Resp BP Sys/Crespo Pulse Ox Last 24 Hr 97.2 F-97.8 F 73-99 13-26 123-196/59-91 95-100 Exam: General appearance: the patient is more awake and seems to be responding a little better. He looks comfortable on facemask O2. - Head Head exam: Present: normal inspection, normocephalic - Eye Eye exam: Present: EOMI. Absent: scleral icterus Pupils: Present: JOVANY - ENT ENT exam: Present: other (He has very pale) - Neck Neck exam: Present: normal inspection. Absent: lymphadenopathy, thyromegaly - Respiratory Respiratory exam: Present: He has equal breath sounds bilaterally but he does have some crackles in the right chest. His lungs sound better today. - Cardiovascular Cardiovascular exam: Present: regular rate and rhythm, systolic murmur (He does have a soft murmur). Absent: gallop - GI/Abdominal GI/Abdominal exam: Present: hypoactive bowel sounds, soft. Absent: organomegaly , tenderness - Extremities Exam Extremities exam: Present: other (Multiple toe amputations). Absent: calf tenderness, edema - Neurological Exam Neurological exam: Present: other (He is awake and more responsive. He looks more comfortable and moving around a little better.) - Psychiatric Psychiatric exam: Absent: anxious - Skin Skin exam: Present: warm, pallor Results - Labs CBC & BMP: 09/18/16 04:00 09/18/16 07:00 Assessment and Plan (1) Anemia Status: Chronic Assessment and plan: The patient has severe anemia and refuses transfusions. His hemoglobin was 6.3 today. His anemia has been a little more stable. Current Visit: Yes Qualifiers: Anemia type: iron deficiency (2) Pneumonia Status: Acute Assessment and plan: Patient has been treated for aspiration pneumonia. He still has some right lung infiltrate but is breathing better. He will continue with antibiotics. He looks like he is breathing better today. Will repeat a chest x-ray tomorrow. Current Visit: Yes Qualifiers: Pneumonia type: aspiration pneumonia Aspiration pneumonia type: due to gastric secretions Laterality: unspecified laterality Lung location: unspecified part of lung Qualified Code(s): J69.0 - Pneumonitis due to inhalation of food and vomit (3) Bedbound patient Status: Chronic Assessment and plan: The patient has had previous CVAs and is bedbound. He is quite debilitated. He basically has multi-infarct dementia. Current Visit: No (4) History of multiple strokes Status: Chronic Assessment and plan: Patient has had multiple CVAs and is certainly chronically ill. He is bedridden but he is a little more responsive today. He is still very debilitated. Current Visit: No (5) Diabetes mellitus Status: Chronic Assessment and plan: Glucose has been stable over the weekend. His glucoses are being monitored. His glucose is 114 this morning. Current Visit: No Qualifiers: Diabetes mellitus type: type 2 Diabetes mellitus complication detail: with other kidney complication (6) Acute on chronic renal failure Status: Acute Assessment and plan: Creatinine is 3.2 has been reasonably stable. Current Visit: Yes (7) Acute respiratory failure Status: Acute Assessment and plan: The patient has done okay off the ventilator but does require some oxygen. He has very poor pulmonary toilet. He does look like his breathing better today. Current Visit: Yes (8) Altered mental status Status: Acute Assessment and plan: The patient has multi-infarct dementia and is severely debilitated. He has severe anemia along with some pneumonia. He has chronic renal failure. His overall outlook is very very poor. Current Visit: Yes
--- NOTE | 2016-09-19 09:14 | Nephrology Progress Note ---
Nephrology - PN: Subj Interval history: More alert today. Calling out. Denies pain. No renal labs. Hgb up yesterday to 6.3. Creatinine 3.2. Exam (PN)-Nephrology - Vital Signs Vital signs: Period Temp Pulse Resp BP Sys/Crespo Pulse Ox Last 24 Hr 97.2 F-97.8 F 73-99 13-26 123-186/59-91 95-100 - General Appearance General appearance: well-developed, chronically ill EENT: ATNC, PERRL, mucous membranes moist, hearing intact Neck: no JVD, no thyromegaly Respiratory: no kyphosis, rales Cardiology: no murmurs, no rub, edema Gastrointestinal: normoactive bowel sounds, no tenderness Integumentary: no rash, warm and dry Neurologic: no asterixis, hemiplegic Musculoskeletal: no deformities, no erythema - Lab 09/18/16 04:00 09/18/16 07:00 Most recent lab results ABG pH 7.530 (7.35-7.45) H 09/15/16 03:24 ABG pCO2 34.3 MM HG (35-48) L 09/15/16 03:24 ABG pO2 189.0 MM HG (80-95) H 09/15/16 03:24 ABG HCO3 28.0 MMOL/L (20-26) H 09/15/16 03:24 ABG O2 Saturation 99.1 % (95-100) 09/15/16 03:24 Calcium 9.1 MG/DL (8.5-10.1) 09/18/16 07:00 Phosphorus 5.8 MG/DL (2.5-4.9) H 09/16/16 05:18 Magnesium 3.5 MG/DL (1.8-2.4) H 09/15/16 05:16 Assessment and Plan (1) Iron deficiency anemia Problem details: Adequate iron saturations for erythropoiesis after replacement. Status: Acute Assessment and plan: Continue Epogen. TIW. Redose one 200mg IV venofer, prior to transfer to [facility]. Current Visit: Yes (2) CKD stage 4 due to type 2 diabetes mellitus Problem details: No indication for renal replacement therapy. Pt is not a good chronic dialysis candidate due to comorbidities. Status: Acute Assessment and plan: Renally dose all meds for eGFR 20cc/min. Repeat uCx pending. Continue diflucan, renally dosed, 200mg IV q24h x 3 doses, ordered. Current Visit: Yes (3) Bedbound patient Status: Chronic Current Visit: No (4) Dementia Status: Acute Current Visit: No (5) Diabetes mellitus Status: Chronic Current Visit: No Qualifiers: Diabetes mellitus type: type 2 Diabetes mellitus complication detail: with other kidney complication (6) BPH (benign prostatic hyperplasia) Status: Acute Current Visit: Yes
[2016-09-19] MEDS: INSULIN REGULAR 100 UNIT/ML SUBCUT SCH ×4 (09:27→21:45)
[2016-09-19] MEDS ORDERED: IRON SUCROSE 200 MG in SODIUM CHLORIDE 0.9% 100 ML IV ONE (10:00)
[2016-09-19] MEDS: CYANOCOBALAMIN 500 MCG TABLET PO SCH ×2 (10:13→20:52)
[2016-09-19] MEDS: FOLIC ACID 0.4 MG TABLET PO SCH ×2 (10:13→20:52)
[2016-09-19] MEDS: amLODIPine 5 MG TABLET PO SCH ×2 (10:13→20:52)
[2016-09-19] MEDS: ISOSORBIDE DINITRATE 20 MG TABLET PEG SCH ×3 (10:13→20:52)
[2016-09-19] MEDS: FUROSEMIDE 40 MG/4 ML VIAL IV SCH ×2 (10:13→20:54)
[2016-09-19] MEDS: SERTRALINE 25 MG TABLET PO SCH (10:13)
[2016-09-19] MEDS: FINASTERIDE 5 MG TABLET PO SCH (10:14)
[2016-09-19] MEDS: BACITRACIN OINT 0.9 GM PACK TOP SCH (10:14)
[2016-09-19] MEDS: DESITIN 4OZ/NYSTATIN 15 GRAM MIXTURE PASTE TOP SCH ×2 (10:14→21:47)
[2016-09-19] MEDS: EPOETIN ALFA 10,000 UNIT/1 ML VIAL SUBCUT SCH (10:14)
[2016-09-19] MEDS: CARVEDILOL 12.5 MG TABLET PO SCH (10:14)
[2016-09-19] MEDS: TAMSULOSIN 0.4 MG CAPSULE PO SCH (10:14)
[2016-09-19] MEDS: LANSOPRAZOLE ODT 30 MG TABLET NG SCH (10:14)
[2016-09-19] MEDS: FLUCONAZOLE INJ 200 MG in PREMIX 1 EACH IV SCH (10:15)
--- NOTE | 2016-09-19 10:20 | Discharge Summary ---
Hospital Course - Hospital Course Hospital Course: Mr. Quiros is a 61-year-old male bed bound patient with history of multiple strokes, dysarthria, anuerysm,chronic anemia, multiple leg ulcers, pneumonia, depression, NIDDM, RA, cerebral hemorrhage, htn, depression, and anxiety that reported to the ED on 09/05 for further evaluation after being examined by home health nurse. BUN 89, creatinine 2.5, potassium 5.7 and sodium 134. The patient had just been hospitalized a month prior for aspiration pneumonia and anemia. Pt was discharged home that time on Epogen because of a Hbg of 6.2 and refusal of blood products because he's a Jehovah witness. Patient was noted to have worsening lab values. Sister brought patient in and provided history as patient is a poor historian. In the ED, labs were drawn and Bun/creatinine were 89/2.9 an increase from 59/1.5 on the previous admission. H&H was 6.4/ 20.7. Pt was admitted to the hospitalist service for further eval and treatment. The patient has had a lengthy hospitalist stay spanning 14 days. Hem/ Oncology, Pulmonology, , ENT, and Nephrology were consulted to assist in the care of patient. Oncology saw the patient for recommendations for the chronic worsening anemia beginning on 09/06. The patient did not have any noted known bleeding. During previous admission patient had been discharged home on Epogen 10,000 units Thursday but was unable to administer so it is unclear if patient received or not. Oncology restarted the Epogen 10,000 units on Thursday and Thursday. They also ordered a additional dose of Epogen to jump start patient prior to the Thursday regimen. They also agree with the iron supplementation given for the patient per hospital medicine. And a complete workup of anemia was completed with B12, folate, reticulocyte count, LDH, haptoglobin, iron studies, SPEP, and hepatitis panel. Patient's hemoglobin decreased from 6.2-5.6 on 09/07 and required high oxygen. Pt's h&h steadily decreased and was 4.7/15.9 on 09/08. Lowest noted was 4.2/13 on 09/11. Pt continued to refuse blood products but was open to expanders. Hem/Onc signed off on 09/08. Pulmonology was consulted to assist in treatment of pneumonia. Chest x-ray showed bilateral multifocal infiltrates that were not present on previous chest x-ray performed July. Patient was currently on antibiotics empirically awaiting results from sputum culture recommendation was made for CT of the chest no contrast at his renal function. Pt. experienced respiratory distress and was intubated on 09/10. A therapeutic bronchoscopy was performed on 09/15. Extubated on 09/17 and cpap trials were initated. Pt is requiring face masks (50 % Ventimask). ENT saw patient on for reports of epistaxis on 09/09. Bilateral sinus foam packing to promote continued nasal moisturization and prevent excoriation of mucosa and epistaxis in light of his marked anemia. Also recommendation was made for changes to anything that would allow for humidification. Nephrology saw patient for CKD management. Because of the patient's chronic anemia and other comorbidities and poor prognosis, dialysis was not recommended. Overall, the patient had a complicated hospital course and will be transferred to [facility] today for further monitoring. Today's hgb is 6.3. Discharge Plan - Discharge Medications No Action Sertraline [Zoloft] 25 mg PO DAILY Pregabalin [Lyrica] 225 mg PO BID Metoprolol Tartrate 50 mg PO TID Methocarbamol 500 mg PO BID PRN PRN Reason: Pain Tamsulosin [Flomax] 0.4 mg PO DAILY Finasteride 5 mg PO DAILY cloNIDine TAB [Catapres Tab] 0.1 mg PO Q4H Aspirin EC Tab 81 mg PO QPM Valsartan 80 mg PO QID Pantoprazole Tab [Protonix Tab] 40 mg PO DAILY Simvastatin 20 mg PO BEDTIME Isosorbide Mononitrate [Imdur] 30 mg PO DAILY Ferrous Sulfate 325 mg PO BID - Follow Up or Referral - Forms/Instructions Exam - Constitutional Vitals: Period Temp Pulse Resp BP Sys/Crespo Pulse Ox Last 24 Hr 97.2 F-97.8 F 73-99 13-26 123-186/59-91 95-100 Discharge Results Procedures and tests throughout hospitalization: Pending Orders 09/11/16 04:34 Red Blood Cells Leuko Red Stat Type and Screen Stat 09/17/16 Urine Culture Routine 09/20/16 04:00 XR chest 1V portable IN AM 09/22/16 04:00 Magnesium Routine Phosphorous Routine Prealbumin Routine Labs on day of discharge: Labs from last 24 hours 09/19/16 09/18/16 09/18/16 07:00 19:30 16:35 POC Glucose 114 H 127 H 104 09/18/16 11:19 POC Glucose 164 H Preliminary micro results at discharge 09/17/16 Unknown Urine Culture - Preliminary Urine,Catheterized Gram Negative Rods DS: Provider Date of admission: 09/05/16 18:11 Primary care physician: . No PCP Attending physician on admission: Aly Rutherford Consults: 09/05/16 20:55 Consult to Physician [CONS] Routine Comment: anemia in a Protestant Consulting Provider: David Abdi Consult to Specialist Group: Hematology When should Consulting Provider be notified: In am Person Notified: Kerrie Date Notified: 09/08/16 Time Notified: 08:34 Consult to Wound Care [facility] [CONS] Routine Reason for Wound Care: Wound Care Management 09/06/16 07:32 Consult to Dietitian [CONS] Routine Reason for Dietitian: TF-Initiate/Manage 09/07/16 14:42 Consult to Physician [CONS] Routine Comment: Consulting Provider: Brett Lord Consulting Provider Notified: Yes When should Consulting Provider be notified: In am Consult to Specialist Group: Pulmonology When should Consulting Provider be notified: In am Person Notified: Dr. Ángel Lord Date Notified: 09/08/16 Time Notified: 08:12 09/09/16 08:19 Consult to Physician [CONS] Routine Comment: Consulting Provider: Romie Graham Consult to Specialist Group: Nephrology When should Consulting Provider be notified: Now Person Notified: GI Date Notified: 09/09/16 Time Notified: 09:25 09/09/16 08:20 Consult to Physician [CONS] Routine Comment: Consulting Provider: Cb Pastrana Consult to Specialist Group: ENT When should Consulting Provider be notified: Now Person Notified: KAILYN Date Notified: 09/09/16 Time Notified: 09:28 09/10/16 08:16 Consult to Wound Care - [place] [CONS] Routine Reason for Wound Care: Wound Care Management 09/10/16 21:25 Consult to Pharmacy [CONS] Routine Reason for Pharmacy Consult: Inpatient Med Review Comment: change imdur extended release due to pt has peg tube 09/18/16 11:08 Consult to Case Mgmt/Social Srvs [CONS] Routine Reason for Case Mgmt/Social Srvs: LTAC Consult Comment: dilan 09/18/16 11:09 Consult to Speech Therapy [CONS] Routine Reason for Speech Therapy: Swallowing Impairment Discharging clinician: Lux Keene NP
--- NOTE | 2016-09-19 15:14 | Hospitalist Progress Note ---
Assessment and Plan (1) Pneumonia Status: Acute Assessment and plan: switch to meropenem Current Visit: Yes Qualifiers: Pneumonia type: aspiration pneumonia Aspiration pneumonia type: due to gastric secretions Laterality: unspecified laterality Lung location: unspecified part of lung Qualified Code(s): J69.0 - Pneumonitis due to inhalation of food and vomit (2) Acute respiratory failure Status: Acute Assessment and plan: cont lasix at 40 mg IV bid, switch to meropenem Current Visit: Yes (3) Acute on chronic renal failure Status: Acute Assessment and plan: stable, Current Visit: Yes (4) Iron deficiency anemia Problem details: Adequate iron saturations for erythropoiesis after replacement. Status: Acute Assessment and plan: s/p iron infusion, hgb slowing improving, will redose iron Current Visit: Yes (5) Diabetes mellitus Status: Chronic Assessment and plan: Blood sugars drop too low will decrease Lantus to 15 units at bedtime Current Visit: No Qualifiers: Diabetes mellitus type: type 2 Diabetes mellitus complication detail: with other kidney complication (6) History of multiple strokes Status: Chronic Assessment and plan: cont asa Current Visit: No (7) Hypertension Status: Chronic Assessment and plan: not controlled, increase coreg to 25 mg po bid, cont norvasc 5 mg po bid and clonidine scheduled for 0.1 mg po bid Current Visit: No Qualifiers: Hypertension type: essential hypertension Qualified Code(s): I10 - Essential (primary) hypertension (8) Ekta glabrata infection Status: Acute Assessment and plan: cont diflucan for 2/3 Current Visit: Yes (9) UTI due to extended-spectrum beta lactamase (ESBL) producing Escherichia coli Status: Acute Assessment and plan: change to meropenem due to resistence to zosyn Current Visit: Yes Hospitalist: Subjective Interval history: Patient only has Medicaid and will not qualify for LTAC's. He has been refused by [facility] and by [facility]. Sister does not want him to go to a correction therefore he will have to go home with her. We will transfer him to the floor. I have discussed this case with Dr. Graham and he would like him to give 1 more dose of venofer Exam - Constitutional Vitals: Period Temp Pulse Resp BP Sys/Crespo Pulse Ox Last 24 Hr 96.9 F-97.8 F 73-101 13-26 123-203/59-91 98-100 Exam: HR-RRR Lung clear but very diminished GI +bs soft and nontender skin pale Neuro opens eyes to command but still lethargic, I believe he is at his baseline psych depressed mood and affect general no acute distress Results - Labs CBC & BMP: 09/18/16 04:00 09/18/16 07:00 Lab Results: I have reviewed the past 24 hour labs Labs: ESBL in his urine is now partially resistant to Zosyn. It is still sensitive to meropenem. Quality Measures - VTE Contraindication to Pharmacological VTE Prophylaxis: High Risk of Bleeding
[2016-09-19] MEDS: hydrALAZINE 20 MG/1 ML VIAL IV PRN (16:35)
[2016-09-19] MEDS: MEROPENEM 500 MG in SODIUM CHLORIDE 0.9% 100 ML IV SCH (16:35)
[2016-09-19] MEDS: CARVEDILOL 25 MG TABLET PO SCH (20:52)
[2016-09-19] MEDS: ASPIRIN CHEW 81 MG TABLET PO SCH (20:52)
[2016-09-19] MEDS: SIMVASTATIN 20 MG TABLET PO SCH (20:53)
[2016-09-19] MEDS: INSULIN GLARGINE 100 UNIT/ML SUBCUT SCH (21:41)
[2016-09-20] MEDS: ALBUTEROL/IPRATROPIUM 3 ML NEB RESP TX SCH ×6 (02:55→22:56)
[2016-09-20] MEDS: MEROPENEM 500 MG in SODIUM CHLORIDE 0.9% 100 ML IV SCH ×2 (03:53→15:30)
[2016-09-20] MEDS: INSULIN REGULAR 100 UNIT/ML SUBCUT SCH ×4 (08:40→21:14)
[2016-09-20] MEDS: ISOSORBIDE DINITRATE 20 MG TABLET PEG SCH ×3 (09:48→20:27)
[2016-09-20] MEDS: TAMSULOSIN 0.4 MG CAPSULE PO SCH (09:48)
[2016-09-20] MEDS: CYANOCOBALAMIN 500 MCG TABLET PO SCH ×2 (09:48→20:27)
[2016-09-20] MEDS: SERTRALINE 25 MG TABLET PO SCH (09:48)
[2016-09-20] MEDS: FOLIC ACID 0.4 MG TABLET PO SCH ×2 (09:48→20:27)
[2016-09-20] MEDS: FINASTERIDE 5 MG TABLET PO SCH (09:48)
[2016-09-20] MEDS: LANSOPRAZOLE ODT 30 MG TABLET NG SCH (09:49)
[2016-09-20] MEDS: FUROSEMIDE 40 MG/4 ML VIAL IV SCH ×2 (09:49→20:26)
[2016-09-20] MEDS: amLODIPine 5 MG TABLET PO SCH ×2 (09:49→20:27)
[2016-09-20] MEDS: DESITIN 4OZ/NYSTATIN 15 GRAM MIXTURE PASTE TOP SCH ×2 (09:49→21:15)
[2016-09-20] MEDS: CARVEDILOL 25 MG TABLET PO SCH ×2 (09:49→20:27)
[2016-09-20] MEDS: BACITRACIN OINT 0.9 GM PACK TOP SCH (09:50)
[2016-09-20] MEDS: cloNIDine 0.1 MG TABLET PO SCH ×2 (09:51→20:27)
--- NOTE | 2016-09-20 10:23 | Nephrology Progress Note ---
Nephrology - PN: Subj Interval history: Mr. Kim is seen in follow-up of his chronic renal impairment. His creatinine 2 days ago was 3.2 which was stable. His hemoglobin was 6.3 slowly rising. He is on multiple supplements and including erythropoietin to improve his blood count. He refuses transfusion due to being a Ep[employer]opalian. His chest is clear he has no edema. He is awake but poorly responsive. He is wearing mask oxygen. His is in room with him and is supportive. [place] remains poor but he is improving his hemoglobin slowly. Exam (PN)-Nephrology - Vital Signs Vital signs: Period Temp Pulse Resp BP Sys/Crespo Pulse Ox Last 24 Hr 97.3 F-99.7 F 80-117 15-20 160-191/66-84 92-100 - Lab 09/18/16 04:00 09/18/16 07:00 Most recent lab results ABG pH 7.530 (7.35-7.45) H 09/15/16 03:24 ABG pCO2 34.3 MM HG (35-48) L 09/15/16 03:24 ABG pO2 189.0 MM HG (80-95) H 09/15/16 03:24 ABG HCO3 28.0 MMOL/L (20-26) H 09/15/16 03:24 ABG O2 Saturation 99.1 % (95-100) 09/15/16 03:24 Calcium 9.1 MG/DL (8.5-10.1) 09/18/16 07:00 Phosphorus 5.8 MG/DL (2.5-4.9) H 09/16/16 05:18 Magnesium 3.5 MG/DL (1.8-2.4) H 09/15/16 05:16
--- NOTE | 2016-09-20 14:08 | XRay Report ---
History: Pneumonia Date: 09/20/2016 Study: Chest x-ray AP portable Comparison exam: 09/19/2016 There is continued cardiomegaly. The mediastinal contour is unchanged. The pulmonary vasculature is slightly prominent. There is some patchy and hazy edema/infiltrate in the right mid to lower lung more so than the left lung base. This has improved to a mild degree since the previous exam. There is mild left-sided pleural effusion. Osseous structures are unchanged. Impression: Continued right greater than left bilateral pulmonary edema/infiltrate with some interval improvement PROCEDURE INTERPRETED AT [facility] DEPARTMENT OF RADIOLOGY Final Report Signed by: Dr. Nahomi Leo
--- NOTE | 2016-09-20 17:02 | Hospitalist Progress Note ---
Assessment and Plan - Time spent with patient Time spent with patient: Greater than 30 minutes (1) UTI (urinary tract infection) Status: Acute Assessment and plan: Most recent positive culture was on the . Switch patient's antibiotics are ertapenem which is once daily. He may require an additional 2 weeks of IV antibiotics. Current Visit: Yes (2) Pneumonia Status: Acute Assessment and plan: Switch antibiotics to ertapenem. Appears to be the same bacteria that is found in the urine. Current Visit: Yes Qualifiers: Pneumonia type: aspiration pneumonia Aspiration pneumonia type: due to gastric secretions Laterality: unspecified laterality Lung location: unspecified part of lung Qualified Code(s): J69.0 - Pneumonitis due to inhalation of food and vomit (3) Anemia Status: Acute Assessment and plan: Given that the patient is a Gnosticism, we will be unable to administer blood. We will continue current conservative treatment. Will obtain blood work tomorrow and keep his blood troubles as few as possible. Current Visit: Yes (4) CKD stage 4 due to type 2 diabetes mellitus Problem details: No indication for renal replacement therapy. Pt is not a good chronic dialysis candidate due to comorbidities. Status: Acute Assessment and plan: Recheck tomorrow. Current Visit: Yes (5) Diabetes mellitus Status: Chronic Assessment and plan: Continue current management. Current Visit: No Qualifiers: Diabetes mellitus type: type 2 Diabetes mellitus complication detail: with other kidney complication (6) BPH (benign prostatic hyperplasia) Status: Acute Assessment and plan: Continue medications. Current Visit: Yes (7) Hypertension Status: Chronic Assessment and plan: Stable. Continue medications. Current Visit: No Qualifiers: Hypertension type: essential hypertension Qualified Code(s): I10 - Essential (primary) hypertension Hospitalist: Subjective Interval history: Patient was transferred up from the ICU. He is stable. He is unable to provide any history and information obtained from the family. Exam - Constitutional Vitals: Period Temp Pulse Resp BP Sys/Crespo Pulse Ox Last 24 Hr 98.1 F-99.7 F 76-117 16-20 131-178/66-81 92-100 General appearance: no acute distress - Head Head exam: Present: normocephalic, atraumatic - Eye Eye exam: Present: EOMI Pupils: Present: JOVANY - ENT ENT exam: Present: normal exam - Neck Neck exam: Present: normal inspection - Respiratory Respiratory exam: Present: clear to auscultation bilaterally. Absent: rhonchi, wheezes - Cardiovascular Cardiovascular exam: Present: regular rate and rhythm. Absent: gallop, rubs, systolic murmur - GI/Abdominal GI/Abdominal exam: Present: normal bowel sounds, soft. Absent: distended, firm , guarding, tenderness, rebound - Extremities Exam Extremities exam: Present: normal inspection. Absent: calf tenderness, edema Results - Labs CBC & BMP: 09/18/16 04:00 09/18/16 07:00 Lab Results: I have reviewed the past 24 hour labs Quality Measures - VTE Contraindication to Pharmacological VTE Prophylaxis: High Risk of Bleeding
[2016-09-20] MEDS: hydrALAZINE 20 MG/1 ML VIAL IV PRN (17:53)
[2016-09-20] MEDS: ERTAPENEM 1,000 MG in SODIUM CHLORIDE 0.9% 100 ML IV SCH (18:18)
[2016-09-20] MEDS: ASPIRIN CHEW 81 MG TABLET PO SCH (20:27)
[2016-09-20] MEDS: SIMVASTATIN 20 MG TABLET PO SCH (20:27)
[2016-09-20] MEDS: INSULIN GLARGINE 100 UNIT/ML SUBCUT SCH (21:15)
[2016-09-21] MEDS: ALBUTEROL/IPRATROPIUM 3 ML NEB RESP TX SCH ×6 (03:46→23:42)
[2016-09-21 07:33] LABS: Basophils % 0.1 % (0.0-0.8); Eosinophils # 0.3 10*3/uL (0.0-0.87); Eosinophils % 3.4 % (0.00-10.9); Hematocrit 23.5 VOL% (42.0-52.0); Immature Granulocytes % 2.9 %; Immature Granulocytes Absolute 0.28 #; Lymphocytes # 0.5 10*3/uL (1.4-4.0); Lymphocytes % 4.9 % (21.2-54.2); Mean Corpuscular HGB Conc 29.8 GM/DL (32-36); Mean Corpuscular Hemoglobin 30 PG (27-34); Mean Platelet Volume 11.1 FL (9.6-12.0); Monocytes # 0.8 10*3/uL (0.11-0.8); Monocytes % 7.9 % (1.7-12.7); NRBC # 0.08 10*3/uL; Neutrophils # 7.9 10*3/uL (1.4-7.4); Neutrophils % 80.8 % (38.7-73.9); Platelet Count 574 T/CUMM (130-400); Red Blood Count 2.35 MC/CUMM (3.8-5.5); Red Cell Distribution Width 29.3 % (9.3-17.3); White Blood Count 9.8 T/CUMM (4-12)
[2016-09-21 07:46] LABS: Calcium 9.1 MG/DL (8.5-10.1); Osmolality,Calculated 305.3 MOS/KG (273-304); Potassium 4.2 MMOL/L (3.5-5.1)
[2016-09-21 07:54] LABS: Band Neutrophils 1 % (0-10); Eosinophils 5 % (0-10); Hypochromasia 1+; Lymphocytes 3 % (20-55); Myelocytes 1 %; Nucleated Red Blood Cells 1 (0-5); Segmented Neutrophils 85 % (50-85); Total Cells Counted 100
[2016-09-21 07:55] LABS: Macrocytosis 1+; Platelet Estimate Increased
[2016-09-21] MEDS: INSULIN REGULAR 100 UNIT/ML SUBCUT SCH ×4 (09:35→22:03)
[2016-09-21] MEDS: TAMSULOSIN 0.4 MG CAPSULE PO SCH (09:37)
[2016-09-21] MEDS: ISOSORBIDE DINITRATE 20 MG TABLET PEG SCH ×3 (09:37→21:52)
[2016-09-21] MEDS: SERTRALINE 25 MG TABLET PO SCH (09:37)
[2016-09-21] MEDS: CYANOCOBALAMIN 500 MCG TABLET PO SCH ×2 (09:37→21:52)
[2016-09-21] MEDS: FOLIC ACID 0.4 MG TABLET PO SCH ×2 (09:37→21:52)
[2016-09-21] MEDS: FINASTERIDE 5 MG TABLET PO SCH (09:38)
[2016-09-21] MEDS: cloNIDine 0.1 MG TABLET PO SCH ×2 (09:38→21:53)
[2016-09-21] MEDS: FUROSEMIDE 40 MG/4 ML VIAL IV SCH ×2 (09:38→21:53)
[2016-09-21] MEDS: LANSOPRAZOLE ODT 30 MG TABLET NG SCH (09:38)
[2016-09-21] MEDS: CARVEDILOL 25 MG TABLET PO SCH ×2 (09:38→21:52)
[2016-09-21] MEDS: BACITRACIN OINT 0.9 GM PACK TOP SCH (09:38)
[2016-09-21] MEDS: amLODIPine 5 MG TABLET PO SCH ×2 (09:38→21:52)
[2016-09-21] MEDS: DESITIN 4OZ/NYSTATIN 15 GRAM MIXTURE PASTE TOP SCH ×2 (09:39→21:55)
--- NOTE | 2016-09-21 10:11 | Nephrology Progress Note ---
Nephrology - PN: Subj Interval history: Mr. Kim seen in follow-up of his renal impairment. His serum creatinine is down to 2.9. He is alert and awake but not interactive with me today. He stable on facemask oxygen. His hemoglobin is up to 7. Chest is clear. His remains in the room and is supportive Exam (PN)-Nephrology - Vital Signs Vital signs: Period Temp Pulse Resp BP Sys/Crespo Pulse Ox Last 24 Hr 98.3 F-99.8 F 76-114 16-20 117-194/57-84 96-99 - Lab 09/21/16 06:29 09/21/16 06:29 Most recent lab results ABG pH 7.530 (7.35-7.45) H 09/15/16 03:24 ABG pCO2 34.3 MM HG (35-48) L 09/15/16 03:24 ABG pO2 189.0 MM HG (80-95) H 09/15/16 03:24 ABG HCO3 28.0 MMOL/L (20-26) H 09/15/16 03:24 ABG O2 Saturation 99.1 % (95-100) 09/15/16 03:24 Calcium 9.1 MG/DL (8.5-10.1) 09/21/16 06:29 Phosphorus 5.8 MG/DL (2.5-4.9) H 09/16/16 05:18 Magnesium 3.5 MG/DL (1.8-2.4) H 09/15/16 05:16
--- NOTE | 2016-09-21 13:09 | Hospitalist Progress Note ---
Assessment and Plan - Time spent with patient Time spent with patient: Greater than 30 minutes (1) UTI (urinary tract infection) Status: Acute Assessment and plan: Most recent positive culture was on the . He will require an additional 2 weeks of IV Ertapenem for treatment of complicated UTI. Consult SW for assistance. Current Visit: Yes (2) Pneumonia Status: Acute Assessment and plan: Switch antibiotics to ertapenem. Appears to be the same bacteria that is found in the urine. Current Visit: Yes Qualifiers: Pneumonia type: aspiration pneumonia Aspiration pneumonia type: due to gastric secretions Laterality: unspecified laterality Lung location: unspecified part of lung Qualified Code(s): J69.0 - Pneumonitis due to inhalation of food and vomit (3) Anemia Status: Acute Assessment and plan: Given that the patient is a Restoration, we will be unable to administer blood. We will continue current conservative treatment. Will obtain blood work tomorrow and keep his blood troubles as few as possible. Current Visit: Yes (4) CKD stage 4 due to type 2 diabetes mellitus Problem details: No indication for renal replacement therapy. Pt is not a good chronic dialysis candidate due to comorbidities. Status: Acute Assessment and plan: Recheck tomorrow. Current Visit: Yes (5) Diabetes mellitus Status: Chronic Assessment and plan: Continue current management. Current Visit: No Qualifiers: Diabetes mellitus type: type 2 Diabetes mellitus complication detail: with other kidney complication (6) BPH (benign prostatic hyperplasia) Status: Acute Assessment and plan: Continue medications. Current Visit: Yes (7) Hypertension Status: Chronic Assessment and plan: Stable. Continue medications. Current Visit: No Qualifiers: Hypertension type: essential hypertension Qualified Code(s): I10 - Essential (primary) hypertension Hospitalist: Subjective Interval history: Mild elevation of temperature overnight. Yesterday I switched the patient from Merrem to Ertapenem. Exam - Constitutional Vitals: Period Temp Pulse Resp BP Sys/Crespo Pulse Ox Last 24 Hr 98.1 F-99.8 F 76-114 18-20 117-194/57-88 96-100 General appearance: no acute distress - Head Head exam: Present: normocephalic, atraumatic - Eye Eye exam: Present: EOMI Pupils: Present: JOVANY - ENT ENT exam: Present: normal exam - Neck Neck exam: Present: normal inspection - Respiratory Respiratory exam: Present: clear to auscultation bilaterally. Absent: rhonchi, wheezes - Cardiovascular Cardiovascular exam: Present: regular rate and rhythm. Absent: gallop, rubs, systolic murmur - GI/Abdominal GI/Abdominal exam: Present: normal bowel sounds, soft. Absent: distended, firm , guarding, tenderness, rebound - Extremities Exam Extremities exam: Present: normal inspection. Absent: calf tenderness, edema Results - Labs CBC & BMP: 09/21/16 06:29 09/21/16 06:29 Lab Results: I have reviewed the past 24 hour labs Quality Measures - VTE Contraindication to Pharmacological VTE Prophylaxis: High Risk of Bleeding
[2016-09-21] MEDS ORDERED: DOCUSATE SODIUM 100 MG CAPSULE PO PRN (14:21)
[2016-09-21] MEDS ORDERED: DOCUSATE SODIUM 100 MG CAPSULE PER TUBE PRN (14:28)
[2016-09-21] MEDS: ASPIRIN CHEW 81 MG TABLET PO SCH (21:52)
[2016-09-21] MEDS: SIMVASTATIN 20 MG TABLET PO SCH (21:53)
[2016-09-21] MEDS: ERTAPENEM 1,000 MG in SODIUM CHLORIDE 0.9% 100 ML IV SCH (21:55)
[2016-09-21] MEDS: INSULIN GLARGINE 100 UNIT/ML SUBCUT SCH (22:04)
[2016-09-22] MEDS ORDERED: DOCUSATE SODIUM 100 MG/10 ML UDCUP PER TUBE PRN (02:00)
[2016-09-22] MEDS: ALBUTEROL/IPRATROPIUM 3 ML NEB RESP TX SCH ×6 (02:46→23:56)
[2016-09-22 05:59] LABS: Magnesium 3.4 MG/DL (1.8-2.4); Phosphorous 6.2 MG/DL (2.5-4.9); Prealbumin 27.6 MG/DL (20-40)
[2016-09-22] MEDS: INSULIN REGULAR 100 UNIT/ML SUBCUT SCH ×4 (09:12→21:49)
[2016-09-22] MEDS: FUROSEMIDE 40 MG/4 ML VIAL IV SCH ×2 (09:17→21:11)
[2016-09-22] MEDS: EPOETIN ALFA 10,000 UNIT/1 ML VIAL SUBCUT SCH (09:17)
[2016-09-22] MEDS: TAMSULOSIN 0.4 MG CAPSULE PO SCH (09:18)
[2016-09-22] MEDS: CARVEDILOL 25 MG TABLET PO SCH ×2 (09:18→21:10)
[2016-09-22] MEDS: FOLIC ACID 0.4 MG TABLET PO SCH ×2 (09:18→21:10)
[2016-09-22] MEDS: FINASTERIDE 5 MG TABLET PO SCH (09:18)
[2016-09-22] MEDS: LANSOPRAZOLE ODT 30 MG TABLET NG SCH (09:18)
[2016-09-22] MEDS: ISOSORBIDE DINITRATE 20 MG TABLET PEG SCH ×3 (09:18→21:10)
[2016-09-22] MEDS: CYANOCOBALAMIN 500 MCG TABLET PO SCH ×2 (09:18→21:10)
[2016-09-22] MEDS: cloNIDine 0.1 MG TABLET PO SCH ×2 (09:18→21:10)
[2016-09-22] MEDS: amLODIPine 5 MG TABLET PO SCH ×2 (09:19→21:11)
[2016-09-22] MEDS: SERTRALINE 25 MG TABLET PO SCH (09:19)
[2016-09-22] MEDS: DESITIN 4OZ/NYSTATIN 15 GRAM MIXTURE PASTE TOP SCH ×2 (09:19→21:10)
[2016-09-22] MEDS: BACITRACIN OINT 0.9 GM PACK TOP SCH (09:20)
--- NOTE | 2016-09-22 09:36 | Hospitalist Progress Note ---
Assessment and Plan (1) Pneumonia Status: Acute Assessment and plan: Impression: Pneumonia, sputum culture positive for ESBL E. coli ESBL UTI Chronic kidney disease Chronic encephalopathy Plan: Remove Welsh catheter. Begin sorbitol to help facilitate a bowel movement. Reconsult speech therapy. Continue current antibiotics. This note was completed using [employer] voice recognition software. There may be chemistry technologist errors as a result. Current Visit: Yes Qualifiers: Pneumonia type: aspiration pneumonia Aspiration pneumonia type: due to gastric secretions Laterality: unspecified laterality Lung location: unspecified part of lung Qualified Code(s): J69.0 - Pneumonitis due to inhalation of food and vomit Hospitalist: Subjective Interval history: Follow-up urinary tract infection, pneumonia, chronic encephalopathy, and chronic kidney disease. The patient is out of the ICU now. Sputum and urine cultures have both grown ESBL E. coli. He is being given IV antibiotics for this. Family wondered about getting speech therapy to see him. Not sure of the reason for this. He has a feeding tube already, and does not appear to interact with his external environment. He does not have a catheter at home, so we will get this out, in hopes of helping to clear the UTI. Family also reports that the patient has not had a bowel movement in several days. Exam - Constitutional Vitals: Period Temp Pulse Resp BP Sys/Crespo Pulse Ox Last 24 Hr 98.1 F-99 F 70-107 17-20 136-169/65-98 95-100 Vital signs are noted above. Heart is regular with distant tones. I do not hear murmur. He has a few rhonchi in the chest. Abdomen is protuberant or distended with positive bowel sounds. PEG tube is in place. He does not interact with the external environment. Results - Labs CBC & BMP: 09/21/16 06:29 09/21/16 06:29 Quality Measures - VTE Contraindication to Pharmacological VTE Prophylaxis: High Risk of Bleeding
[2016-09-22] MEDS: SORBITOL 30 ML BOTTLE PO SCH (12:07)
--- NOTE | 2016-09-22 13:03 | Nephrology Progress Note ---
Nephrology - PN: Subj Interval history: Mr. Kim is seen in follow-up of his renal impairment. His creatinine is stable today at 2.9. He opens his eyes but does not make an attempt to communicate with me. No changes are made for now he is stable with stable electrolytes. Family member remains at the bedside and is very faithful with her care. Exam (PN)-Nephrology - Vital Signs Vital signs: Period Temp Pulse Resp BP Sys/Crespo Pulse Ox Last 24 Hr 98.3 F-99 F 70-107 16-20 148-169/65-98 95-100 - Lab 09/21/16 06:29 09/21/16 06:29 Most recent lab results ABG pH 7.530 (7.35-7.45) H 09/15/16 03:24 ABG pCO2 34.3 MM HG (35-48) L 09/15/16 03:24 ABG pO2 189.0 MM HG (80-95) H 09/15/16 03:24 ABG HCO3 28.0 MMOL/L (20-26) H 09/15/16 03:24 ABG O2 Saturation 99.1 % (95-100) 09/15/16 03:24 Calcium 9.1 MG/DL (8.5-10.1) 09/21/16 06:29 Phosphorus 6.2 MG/DL (2.5-4.9) H 09/22/16 04:56 Magnesium 3.4 MG/DL (1.8-2.4) H 09/22/16 04:56
[2016-09-22] MEDS ORDERED: ERTAPENEM 500 MG in SODIUM CHLORIDE 0.9% 100 ML IV SCH (21:00)
[2016-09-22] MEDS: ASPIRIN CHEW 81 MG TABLET PO SCH (21:10)
[2016-09-22] MEDS: SIMVASTATIN 20 MG TABLET PO SCH (21:10)
[2016-09-22] MEDS: INSULIN GLARGINE 100 UNIT/ML SUBCUT SCH (21:49)
[2016-09-23] MEDS: ALBUTEROL/IPRATROPIUM 3 ML NEB RESP TX SCH ×4 (03:55→14:11)
[2016-09-23] MEDS: INSULIN REGULAR 100 UNIT/ML SUBCUT SCH ×2 (08:06→13:49)
--- NOTE | 2016-09-23 09:19 | Hospitalist Progress Note ---
Assessment and Plan (1) Pneumonia Status: Acute Assessment and plan: Impression: Pneumonia, sputum culture positive for ESBL E. coli ESBL UTI Chronic kidney disease Chronic encephalopathy Anemia, likely multifactorial Plan: Remove Welsh catheter again. Continue sorbitol to help facilitate a bowel movement. Check with pharmacy for duration of antibiotics during the hospitalization. May consider discharge today or tomorrow. This note was completed using [employer] voice recognition software. There may be heavy duty press operator errors as a result. Current Visit: Yes Qualifiers: Pneumonia type: aspiration pneumonia Aspiration pneumonia type: due to gastric secretions Laterality: unspecified laterality Lung location: unspecified part of lung Qualified Code(s): J69.0 - Pneumonitis due to inhalation of food and vomit Hospitalist: Subjective Interval history: Follow-up ESBL pneumonia and UTI, anemia, and chronic kidney disease. The patient appears to be at baseline. His hemoglobin has gone from 4.327 with bone marrow stimulating agents. He is a Religious, and the family does not want transfusion. Kidney function has improved slowly. I have attempted to review antibiotic regimens in the MAR, and they are unavailable for some reason. He may have had adequate treatment for his UTI and pneumonia, but I cannot tell from the chart. He did not have a bowel movement yesterday following the institution of sorbitol. Exam - Constitutional Vitals: Period Temp Pulse Resp BP Sys/Crespo Pulse Ox Last 24 Hr 97.8 F-98.6 F 72-99 16-22 118-161/64-82 93-100 Vital signs are noted above. Heart is regular with distant tones. I do not hear murmur. He has a few rhonchi in the chest, but the lungs are mostly clear. Abdomen is soft with positive bowel sounds. Welsh catheter remains intact despite my order to discontinue it yesterday. He does not interact with the external environment. Results - Labs CBC & BMP: 09/21/16 06:29 09/21/16 06:29 Quality Measures - VTE Contraindication to Pharmacological VTE Prophylaxis: High Risk of Bleeding
[2016-09-23 09:39] LABS: Basophils % 0.1 % (0.0-0.8); Eosinophils # 0.7 10*3/uL (0.0-0.87); Eosinophils % 9.2 % (0.00-10.9); Hematocrit 23.9 VOL% (42.0-52.0); Hemoglobin 7.2 GM/DL (14.0-18.0); Immature Granulocytes % 1.5 %; Immature Granulocytes Absolute 0.12 #; Lymphocytes # 0.7 10*3/uL (1.4-4.0); Lymphocytes % 9.2 % (21.2-54.2); Mean Corpuscular HGB Conc 30.1 GM/DL (32-36); Mean Corpuscular Hemoglobin 31 PG (27-34); Mean Corpuscular Volume 101.7 FL (87-102); Mean Platelet Volume 10.2 FL (9.6-12.0); Monocytes # 0.7 10*3/uL (0.11-0.8); Monocytes % 8.7 % (1.7-12.7); NRBC # 0.02 10*3/uL; Neutrophils # 5.6 10*3/uL (1.4-7.4); Neutrophils % 71.3 % (38.7-73.9); Platelet Count 439 T/CUMM (130-400); Red Blood Count 2.35 MC/CUMM (3.8-5.5); White Blood Count 7.9 T/CUMM (4-12)
[2016-09-23 10:05] LABS: Band Neutrophils 9 % (0-10); Basophilic Stippling Slight; Eosinophils 4 % (0-10); Lymphocytes 13 % (20-55); Nucleated Red Blood Cells 2 (0-5); Polychromasia Slight; Segmented Neutrophils 67 % (50-85); Total Cells Counted 100
[2016-09-23 10:06] LABS: Hypochromasia Slight; Platelet Estimate Adequate
[2016-09-23 10:09] LABS: Osmolality,Calculated 306.5 MOS/KG (273-304); Potassium 4.6 MMOL/L (3.5-5.1)
[2016-09-23] MEDS: LANSOPRAZOLE ODT 30 MG TABLET NG SCH (10:12)
[2016-09-23] MEDS: FUROSEMIDE 40 MG/4 ML VIAL IV SCH (10:12)
[2016-09-23] MEDS: FINASTERIDE 5 MG TABLET PO SCH (10:12)
[2016-09-23] MEDS: ISOSORBIDE DINITRATE 20 MG TABLET PEG SCH ×2 (10:12→15:09)
[2016-09-23] MEDS: SERTRALINE 25 MG TABLET PO SCH (10:12)
[2016-09-23] MEDS: TAMSULOSIN 0.4 MG CAPSULE PO SCH (10:12)
[2016-09-23] MEDS: amLODIPine 5 MG TABLET PO SCH (10:13)
[2016-09-23] MEDS: BACITRACIN OINT 0.9 GM PACK TOP SCH (10:13)
[2016-09-23] MEDS: CARVEDILOL 25 MG TABLET PO SCH (10:13)
[2016-09-23] MEDS: FOLIC ACID 0.4 MG TABLET PO SCH (10:13)
[2016-09-23] MEDS: DESITIN 4OZ/NYSTATIN 15 GRAM MIXTURE PASTE TOP SCH (10:13)
[2016-09-23] MEDS: SORBITOL 30 ML BOTTLE PO SCH (10:13)
[2016-09-23] MEDS: cloNIDine 0.1 MG TABLET PO SCH (10:13)
[2016-09-23] MEDS: CYANOCOBALAMIN 500 MCG TABLET PO SCH (10:14)
--- NOTE | 2016-09-23 10:28 | Nephrology Progress Note ---
Nephrology - PN: Subj Interval history: Pt resting comfortably. No acute weekend events per at bedside. Hct 23.9 this am. WBC 7.9, no renal labs. Last creatinine 2.9 for eGFR 21cc/min (CKD stge 4). BPs controlled on current regimen: clonidine 0.1mg bid, lasix 40mg IVP bid, norvasc 5mg daily, coreg 25mg bid, isordil 40mg tid, hydralazine 10mg IVP prn. Iron has been replaced adequately IV 1200mg total infused over 6 infusions. Ucx now with ESBL E.coli, previously was kiran glabrata. Rehman was changed when he was in CCU with the kiran. Sputum also with ESBL E.coli with different sensitivities, was sensitive to zosyn. Antibiotics since admission: levofloxacin/zosyn admission. Zosyn from 09/06-09/19. Meropenem 09/19. Ertapenem -today. Exam (PN)-Nephrology - Vital Signs Vital signs: Period Temp Pulse Resp BP Sys/Crespo Pulse Ox Last 24 Hr 97.8 F-98.6 F 72-99 16- 118-161/64-82 93-100 - General Appearance General appearance: well-developed, chronically ill EENT: ATNC, PERRL, mucous membranes dry Neck: no JVD, no carotid bruit Respiratory: no kyphosis, clear Cardiology: no murmurs, no edema Gastrointestinal: normoactive bowel sounds, no tenderness Integumentary: no rash, warm and dry Neurologic: no focal deficit, no asterixis, alert and oriented x3 Musculoskeletal: no deformities, no erythema - Lab 09/23/16 09:29 09/21/16 06:29 Most recent lab results ABG pH 7.530 (7.35-7.45) H 09/15/16 03:24 ABG pCO2 34.3 MM HG (35-48) L 09/15/16 03:24 ABG pO2 189.0 MM HG (80-95) H 09/15/16 03:24 ABG HCO3 28.0 MMOL/L (20-26) H 09/15/16 03:24 ABG O2 Saturation 99.1 % (95-100) 09/15/16 03:24 Calcium 9.1 MG/DL (8.5-10.1) 09/21/16 06:29 Phosphorus 6.2 MG/DL (2.5-4.9) H 09/22/16 04:56 Magnesium 3.4 MG/DL (1.8-2.4) H 09/22/16 04:56 Assessment and Plan (1) UTI due to extended-spectrum beta lactamase (ESBL) producing Escherichia coli Problem details: Differrent resistance pattern than the sputum ESBL E.coli. Status: Acute Assessment and plan: Agree with pulling rehman. Would treat for total 10-14 days total for complicated UTI, ertapenem. Current Visit: Yes (2) Hypertension Problem details: Increase clonidine to 0.1mg per tube TID. Continue coreg 25 bid , norvasc 5mg daily, change lasix to 80mg bid via tube, isordil 40mg tid. This should be his discharge antihypertensive regimen. Status: Chronic Current Visit: No Qualifiers: Hypertension type: essential hypertension Qualified Code(s): I10 - Essential (primary) hypertension (3) Iron deficiency anemia Problem details: Adequate iron saturations for erythropoiesis after replacement. Status: Acute Assessment and plan: Continue Epogen once weekly 10,000 units. Would change to liquid iron once or twice daily at discharge, and stop Epogen at discharge. Current Visit: Yes (4) CKD stage 4 due to type 2 diabetes mellitus Problem details: No indication for renal replacement therapy. Pt is not a good chronic dialysis candidate due to comorbidities. Status: Acute Assessment and plan: Renally dose all meds for eGFR 20cc/min. Current Visit: Yes (5) Bedbound patient Status: Chronic Current Visit: No (6) Dementia Status: Acute Current Visit: No (7) Diabetes mellitus Status: Chronic Current Visit: No Qualifiers: Diabetes mellitus type: type 2 Diabetes mellitus complication detail: with other kidney complication (8) BPH (benign prostatic hyperplasia) Status: Acute Assessment and plan: Continue proscar and flomax. Pull rehman. Assess with voiding trial prior to discharge. Current Visit: Yes
[2016-09-23 11:51] VITALS: BP 132/84
--- NOTE | 2016-09-23 13:49 | Discharge Summary ---
Hospital Course - Hospital Course Hospital Course: Mr. Quiros is a 61-year-old male bed bound patient with history of multiple strokes, dysarthria, anuerysm,chronic anemia, multiple leg ulcers, pneumonia, depression, NIDDM, RA, cerebral hemorrhage, htn, depression, and anxiety that reported to the ED on 09/05 for further evaluation after being examined by home health nurse. BUN 89, creatinine 2.5, potassium 5.7 and sodium 134. The patient had just been hospitalized a month prior for aspiration pneumonia and anemia. Pt was discharged home that time on Epogen because of a Hbg of 6.2 and refusal of blood products because he's a Jehovah witness. Patient was noted to have worsening lab values. Sister brought patient in and provided history as patient is a poor historian. In the ED, labs were drawn and Bun/creatinine were 89/2.9 an increase from 59/1.5 on the previous admission. H&H was 6.4/ 20.7. Pt was admitted to the hospitalist service for further eval and treatment. The patient has had a lengthy hospitalist stay spanning 14 days. Hem/ Oncology, Pulmonology, , ENT, and Nephrology were consulted to assist in the care of patient. Oncology saw the patient for recommendations for the chronic worsening anemia beginning on 09/06. The patient did not have any noted known bleeding. During previous admission patient had been discharged home on Epogen 10,000 units Thursday but was unable to administer so it is unclear if patient received or not. Oncology restarted the Epogen 10,000 units on Thursday and Thursday. They also ordered a additional dose of Epogen to jump start patient prior to the Thursday regimen. They also agree with the iron supplementation given for the patient per hospital medicine. And a complete workup of anemia was completed with B12, folate, reticulocyte count, LDH, haptoglobin, iron studies, SPEP, and hepatitis panel. Patient's hemoglobin decreased from 6.2-5.6 on 09/07 and required high oxygen. Pt's h&h steadily decreased and was 4.7/15.9 on 09/08. Lowest noted was 4.2/13 on 09/11. Pt continued to refuse blood products but was open to expanders. Hem/Onc signed off on 09/08. Pulmonology was consulted to assist in treatment of pneumonia. Chest x-ray showed bilateral multifocal infiltrates that were not present on previous chest x-ray performed July. Patient was currently on antibiotics empirically awaiting results from sputum culture recommendation was made for CT of the chest no contrast at his renal function. Pt. experienced respiratory distress and was intubated on 09/10. A therapeutic bronchoscopy was performed on 09/15. Extubated on 09/17 and cpap trials were initated. Pt is requiring face masks (50 % Ventimask). ENT saw patient on for reports of epistaxis on 09/09. Bilateral sinus foam packing to promote continued nasal moisturization and prevent excoriation of mucosa and epistaxis in light of his marked anemia. Also recommendation was made for changes to anything that would allow for humidification. Nephrology saw patient for CKD management. Because of the patient's chronic anemia and other comorbidities and poor prognosis, dialysis was not recommended. Overall, the patient had a complicated hospital course and will be transferred to [facility] today for further monitoring. Today's hgb is 6.3. Addendum: The patient ended up not going to the long-term acute care hospital. His hemoglobin improved with marrow stimulating agents, and was 7.2 on the day of discharge. It appears that his ESBL urinary colonization in sputum colonization were adequately treated with ampicillin/tazobactam. He remained afebrile. Kidney function stabilized with a creatinine of about 3.0. Once we had determined that he did not need further antibiotics, the patient has been cleared for discharge. Medication reconciliation has been performed. Tube feedings for nutrition. 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 Diagnosis - Discharge Diagnosis (1) Pneumonia Status: Acute Discharge Plan - Discharge Medications New Albuterol/Ipratropium Neb [Duoneb] 3 ml RESP TX RT Q4H #120 vial Folic Acid Tab 0.4 mg PO BID #60 tablet Acetaminophen Tab [Tylenol Tab] 325 mg PO Q4H PRN tablet PRN Reason: fever, headache/body aches Cyanocobalamin Tab [Vitamin B12 Tab] 500 mcg PO BID #60 tablet Insulin Glargine [Lantus] 15 unit SUBCUT BEDTIME #1 packet Continue Sertraline [Zoloft] 25 mg PO DAILY Pregabalin [Lyrica] 225 mg PO BID Metoprolol Tartrate 50 mg PO TID Methocarbamol 500 mg PO BID PRN PRN Reason: Pain Tamsulosin [Flomax] 0.4 mg PO DAILY Finasteride 5 mg PO DAILY cloNIDine TAB [Catapres Tab] 0.1 mg PO Q4H Aspirin EC Tab 81 mg PO QPM Valsartan 80 mg PO QID Pantoprazole Tab [Protonix Tab] 40 mg PO DAILY Simvastatin 20 mg PO BEDTIME Isosorbide Mononitrate [Imdur] 30 mg PO DAILY Ferrous Sulfate 325 mg PO BID - Follow Up or Referral - Forms/Instructions Additional Discharge Instructions: Resume Home Health. Obtain Nebulizer Exam - Constitutional Vitals: Period Temp Pulse Resp BP Sys/Crespo Pulse Ox Last 24 Hr 97.8 F-98.7 F 82-99 17-22 128-161/64-84 93-100 Discharge Results Procedures and tests throughout hospitalization: Pending Orders 09/11/16 04:34 Red Blood Cells Leuko Red Stat Type and Screen Stat 09/20/16 16:04 Occult Blood, Stool Stat 09/25/16 04:00 Basic Metabolic Panel MOTH Magnesium MOTH Phosphorous MOTH Prealbumin MOTH Labs on day of discharge: Labs from last 24 hours 09/23/16 09/23/16 09/23/16 10:59 09:29 09:29 WBC 7.9 RBC 2.35 L Hgb 7.2 L Hct 23.9 L MCV 101.7 MCH 31 MCHC 30.1 L Plt Count 439 H D MPV 10.2 Neut % (Auto) 71.3 Lymph % (Auto) 9.2 L Durham % (Auto) 8.7 Eos % (Auto) 9.2 Baso % (Auto) 0.1 Neut # (Auto) 5.6 Lymph # (Auto) 0.7 L [place] # (Auto) 0.7 Eos # (Auto) 0.7 Baso # (Auto) 0.0 Total Counted 100 Immature Gran % 1.5 Nucleated RBC % 0.3 Immature Gran # 0.12 Segmented Neutrophils 67 Band Neutrophils 9 Lymphocytes 13 L Monocytes 7 Eosinophils 4 Nucleated RBCs 2 Nucleated RBCs # 0.02 Platelet Estimate Adequate Polychromasia Slight Hypochromasia Slight Basophilic Stippling Slight Sodium 139 Potassium 4.6 Chloride 97 L Carbon Dioxide 34 H Anion Gap 12.6 BUN 92 H Creatinine 3.10 H GFR Calculation 22 BUN/Creatinine Ratio 29.00 H Glucose 129 H POC Glucose 163 H Calculated Osmolality 306.5 H Calcium 9.0 09/23/16 09/23/16 09/22/16 07:21 06:51 21:39 WBC RBC Hgb Hct MCV MCH MCHC Plt Count MPV Neut % (Auto) Lymph % (Auto) Durham % (Auto) Eos % (Auto) Baso % (Auto) Neut # (Auto) Lymph # (Auto) Durham # (Auto) Eos # (Auto) Baso # (Auto) Total Counted Immature Gran % Nucleated RBC % Immature Gran # Segmented Neutrophils Band Neutrophils Lymphocytes Monocytes Eosinophils Nucleated RBCs Nucleated RBCs # Platelet Estimate Polychromasia Hypochromasia Basophilic Stippling Sodium Potassium Chloride Carbon Dioxide Anion Gap BUN Creatinine GFR Calculation BUN/Creatinine Ratio Glucose POC Glucose 151 H 146 H 203 H Calculated Osmolality Calcium DS: Provider Date of admission: 09/05/16 18:11 Primary care physician: . No PCP Attending physician on admission: Aly Rutherford Consults: 09/05/16 20:55 Consult to Physician [CONS] Routine Comment: anemia in a Buddhist Consulting Provider: David Abdi Consult to Specialist Group: Hematology When should Consulting Provider be notified: In am Person Notified: Kerrie Date Notified: 09/08/16 Time Notified: 08:34 Consult to Wound Care - [facility] [CONS] Routine Reason for Wound Care: Wound Care Management 09/06/16 07:32 Consult to Dietitian [CONS] Routine Reason for Dietitian: TF-Initiate/Manage 09/07/16 14:42 Consult to Physician [CONS] Routine Comment: Consulting Provider: Brett Lord Consulting Provider Notified: Yes When should Consulting Provider be notified: In am Consult to Specialist Group: Pulmonology When should Consulting Provider be notified: In am Person Notified: Dr. Ángel Lord Date Notified: 09/08/16 Time Notified: 08:12 09/09/16 08:19 Consult to Physician [CONS] Routine Comment: Consulting Provider: Romie Graham Consult to Specialist Group: Nephrology When should Consulting Provider be notified: Now Person Notified: GI Date Notified: 09/09/16 Time Notified: 09:25 09/09/16 08:20 Consult to Physician [CONS] Routine Comment: Consulting Provider: Cb Pastrana Consult to Specialist Group: ENT When should Consulting Provider be notified: Now Person Notified: KAILYN Date Notified: 09/09/16 Time Notified: :09/10/16 08:16 Consult to Wound Care - [facility] [CONS] Routine Reason for Wound Care: Wound Care Management 09/10/16 21:25 Consult to Pharmacy [CONS] Routine Reason for Pharmacy Consult: Inpatient Med Review Comment: change imdur extended release due to pt has peg tube 09/18/16 11:08 Consult to Case Mgmt/Social Srvs [CONS] Routine Reason for Case Mgmt/Social Srvs: LTAC Consult Comment: [facility] 09/19/16 15:17 Consult to Pharmacy [CONS] Routine Reason for Pharmacy Consult: Other Comment: dose meropenem 09/21/16 13:17 Consult to Case Mgmt/Social Srvs [CONS] Routine Reason for Case Mgmt/Social Srvs: LTAC Consult Comment: Needs IV antibiotics for 2 weeks. Discharging clinician: Aric Sarah MD Expected date of discharge: 09/23/16
[2016-09-23] MEDS ORDERED: cloNIDine 0.1 MG TABLET PO SCH (15:00)
== END 2016-09-23 17:02 | disposition home health service (06) | DRG 130 ==
LOC: N.ED 15:24 → SUATTDRO 18:11 → N.5E 18:11 → N.CC 09-10 10:05 → N.2E 09-19 13:39
PROVIDERS: ADMIT Family Medicine; ATTEND Internal Medicine Geriatric Medicine

== ENCOUNTER 2016-09-30 18:34 | Inpatient (IN) ==
[2016-09-30] MEDS ORDERED: methylPREDNISolone SOD SUC 125 MG/2 ML VIAL IV STA (19:03)
[2016-09-30] MEDS ORDERED: ONDANSETRON 4 MG/2 ML VIAL IV STA (19:03)
[2016-09-30] MEDS ORDERED: CLINDAMYCIN INJ 600 MG in PREMIX 1 EACH IV STA (19:03)
[2016-09-30] MEDS ORDERED: FUROSEMIDE 100 MG/10 ML VIAL IV STA (19:03)
[2016-09-30 19:11] LABS: Basophils % 0.3 % (0.0-0.8); Eosinophils # 0.8 10*3/uL (0.0-0.87); Eosinophils % 6.7 % (0.00-10.9); Hematocrit 26.1 VOL% (35.7-47.0); Hemoglobin 8.3 GM/DL (12.0-16.0); Immature Granulocytes % 0.4 %; Immature Granulocytes Absolute 0.04 #; Lymphocytes # 0.6 10*3/uL (1.4-4.0); Lymphocytes % 5.6 % (21.3-54.2); Mean Corpuscular HGB Conc 31.8 GM/DL (32-36); Mean Corpuscular Hemoglobin 31 PG (27-34); Mean Corpuscular Volume 98.9 FL (87-102); Mean Platelet Volume 12.7 FL (9.6-12.0); Monocytes # 0.5 10*3/uL (0.11-0.8); Monocytes % 4.1 % (1.7-12.7); Neutrophils # 9.4 10*3/uL (1.4-7.4); Neutrophils % 82.9 % (38.7-73.9); Platelet Count 287 T/CUMM (130-400); Red Blood Count 2.64 MC/CUMM (3.8-5.5); Red Cell Distribution Width 24.1 % (9.3-17.3); White Blood Count 11.3 T/CUMM (4-12)
--- NOTE | 2016-09-30 19:14 | Emergency Department Note ---
IShukri Brittany, am scribing for, and in the presence of, Cecilio Reddy MD 19:11. Maureen Trinh Charles R, MD, personally performed the services described in this documentation, ascribed by Layne Watt in my presence, and it is both accurate and complete 913 . Arrival - Arrival Chief Complaint: Shortness of Breath Stated Complaint: LOW O2 SATS ED Nursing Triage Note: pt had low blood sugar this am. pt also has had low o2 sats during the night in the 70s. pt was set by the home health nurse to get abgs. Mode of Arrival: Stretcher Limitations: No Limitations Source: Family Time Seen by Provider: 09/30/16 18:55 - History of Present Illness HPI Narrative: This is a chronically ill appearing 61 y/o white male,who presents to the ED for further evaluation of Low 02 stats. Pt has neuro complications secondary to CVAs and his family is the primary historian. Per family, pt's BS was low during the night and then this morning pt's o2 sats became in the 70's during the night. Pt's home health care nurse told family to come to the ED for ABGs. Pt is currently on 2 Liters of Home O2. He denies a Hx of blood clots. He is not on blood thinners at this time. Pt's PCP is Dr. Driscoll. Pt has no toher complaints/pain in the ED at this time. Pt has a PMhx of CVA, HTN, NIDDM, renal problems, GI problems, and anemia. Pt denies a surgical Hx. Pt denies a family medical Hx. Pt denies a social hx. Allergies/Adverse Reactions: Allergies Allergy/AdvReac Type Severity Reaction Status Date / Time No Known Allergies Allergy Unverified 09/30/16 18:42 Home Medications: Home Medications Medication Instructions Recorded Confirmed Type Acetaminophen Tab [Tylenol Tab] 325 mg PO Q4H PRN 09/30/16 09/30/16 History Albuterol/Ipratropium Neb [Duoneb] 3 ml RESP TX RT Q4H 09/30/16 09/30/16 History Aspirin EC Tab 81 mg PO QPM 09/30/16 09/30/16 History Cyanocobalamin Tab [Vitamin B12 500 mcg PO BID 09/30/16 09/30/16 History Tab] Ferrous Sulfate Tab [Feosol 325 mg PO BID 09/30/16 09/30/16 History Original Tab] Finasteride [Proscar] 5 mg PO DAILY 09/30/16 09/30/16 History Folic Acid Tab 0.4 mg PO BID 09/30/16 09/30/16 History Insulin Glargine [Lantus] 15 unit SUBCUT BEDTIME 09/30/16 09/30/16 History Isosorbide Mononitrate [Imdur] 30 mg PO DAILY 09/30/16 09/30/16 History Methocarbamol Tab [Robaxin Tab] 500 mg PO BID PRN 09/30/16 09/30/16 History Metoprolol Tartrate Tab [Lopressor 50 mg PO TID 09/30/16 09/30/16 History Tab] Pantoprazole Tab [Protonix Tab] 40 mg PO DAILY 09/30/16 09/30/16 History Pregabalin [Lyrica] 225 mg PO BID 09/30/16 09/30/16 History Sertraline [Zoloft] 25 mg PO DAILY 09/30/16 09/30/16 History Simvastatin 20 mg PO QPM 09/30/16 09/30/16 History Tamsulosin [Flomax] 0.4 mg PO DAILY 09/30/16 09/30/16 History Valsartan 80 mg PO QID 09/30/16 09/30/16 History cloNIDine TAB [Catapres Tab] 0.1 mg PO Q4H 09/30/16 09/30/16 History Review of System - Review of System ROS unobtainable: due to mental status (Pt's family provided the Hx) 12 point system: reviewed and no additional remarkable complaints except as stated - Review of System Respiratory: Present: cough, other (Low O2 Stats) Endocrine: Present: other (Low BS last night) Medical,Surgical,& Family Hx - Medical History Cardio: History of: Hypertension Neurology: History of: Cerebrovascular Accident Endocrine: History of: Diabetes Mellitus (NIDDM) Renal: History of: Renal Problems (decreased kidney function) Gastrointestinal: History of: GI Problems (triple a) Hematology: History of: Anemia - Social History Smoking Status: Never smoker Frequency of Alcohol Use: None Type of Drug Use: None Exam Vital Signs: Vital Signs Temperature 98.2 F 09/30/16 18:56 Pulse Rate 83 09/30/16 19:19 Respiratory Rate 24 09/30/16 19:19 Blood Pressure 173/73 09/30/16 18:56 O2 Sat by Pulse Oximetry 92 L 09/30/16 19:19 - General General appearance: alert, other (Chronically ill appearing) - Head Head exam: Present: atraumatic, normocephalic, normal inspection - Eye Eye exam: Present: normal appearance, PERRL, EOMI. Absent: nystagmus, miosis, mydriasis - ENT ENT exam: Present: normal exam, normal oropharynx, mucous membranes moist, TM's normal bilaterally, normal external ear exam - Neck Neck exam: Present: normal inspection, full ROM, trachea midline. Absent: tenderness, meningismus - Chest Chest inspection: Present: normal inspection, symmetric chest wall rise. Absent : tenderness, rash, abscess - Respiratory Respiratory exam: Present: rales (Bibasilar rales), rhonchi (Harse Rhonchi). Absent: normal lung sounds bilaterally - Cardiovascular Cardiovascular exam: Present: regular rate, normal rhythm, normal heart sounds. Absent: murmur, rubs, gallop, clicks - Abdominal Exam Abdominal exam: Present: soft, distention, diminished bowel sounds, other ( Feeding tube in place which appears to be infected, is not cleaned ). 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 Absent: tenderness, muscle spasm, rashes - Neurological Exam Neurological exam: Present: alert, motor sensory deficit (Motor Sensory deficits secondary to multiple CVAs. ) - Psychiatric Psychiatric exam: Present: normal affect, normal mood. Absent: depressed, agitated, anxious, flat affect, manic - Skin Skin exam: Present: warm, dry, intact, normal color. Absent: cyanosis, diaphoresis, erythema, pallor, mottled Course - Consultations Consultation #1: Hospitalist will admit patient Time: 19:49 Results - Labs CBC & BMP: 09/30/16 19:04 09/30/16 19:04 Lab Results: I have reviewed the patients labs - Diagnostic Findings Procedure: Chest x-ray: report reviewed by me (Significant interval worsening.) Critical Care Time Critical Care Time: Yes Total Critical Care Time: 60 Disposition Clinical Impression: Community acquired pneumonia, Aspiration pneumonia, Chronic respiratory failure , Sequela of cerebrovascular accident, PEG tube feeder, Anemia, chronic disease , Expressive aphasia, Hypoxia, Acute renal failure, Hyperkalemia, Hyponatremia, History of abdominal aortic aneurysm (AAA), Congestive heart failure Case discussed with: patient, patient's family Disposition: Still a Patient Condition: Guarded Time of Disposition: 19:48
--- NOTE | 2016-09-30 19:19 | XRay Report ---
Portable chest. Indication: Shortness of breath. Comparison: September 20, 2016. The heart is enlarged. The pulmonary vasculature is prominent. There is worsening alveolar infiltrate throughout the right lung. There is development of volume loss and increasing pleural effusion on the left, with now almost total opacification of the left hemithorax, with infiltrated lung seen at the left apex. The osseous structures are stable. Impression: Significant interval worsening. PROCEDURE INTERPRETED AT [facility] DEPARTMENT OF RADIOLOGY Final Report Signed by: Dr. Arlen Dangelo
[2016-09-30 19:21] LABS: PT Patient Result 10.6 SECS
[2016-09-30] MEDS ORDERED: methylPREDNISolone SOD SUC 125 MG/2 ML VIAL ONE (19:28)
[2016-09-30] MEDS ORDERED: FUROSEMIDE 40 MG/4 ML VIAL ONE (19:28)
[2016-09-30] MEDS ORDERED: CLINDAMYCIN INJ 50 ML IV ONE (19:28)
[2016-09-30] MEDS ORDERED: ONDANSETRON 4 MG/2 ML VIAL ONE (19:28)
[2016-09-30 19:29] LABS: ABG HCO3 22.5 MMOL/L (20-26); ABG Oxygen Saturation 87.3 % (95-100); ABG PH 7.347 (7.35-7.45); ABG PO2 60.2 MM HG (80-95); ABG TCO2 23.8 MMOL/L (23-27); Allen Test Positive
[2016-09-30] MEDS ORDERED: ALBUTEROL 2.5 MG/3 ML NEB RESP TX SCH (19:30)
[2016-09-30 19:38] LABS: Bilirubin,Total 0.5 MG/DL (0.2-1.0); Calcium 8.4 MG/DL (8.5-10.1); Magnesium 3.6 MG/DL (1.8-2.4); Osmolality,Calculated 294.9 MOS/KG (273-304); Total Protein 7.3 G/DL (6.4-8.3); Troponin I Only 0.034 NG/ML (0.00-0.045)
[2016-09-30 19:44] LABS: Potassium 7.4 MMOL/L (3.5-5.1)
[2016-09-30] MEDS ORDERED: SODIUM CHLORIDE 0.9% 500 ML IV STA (19:44)
[2016-09-30] MEDS ORDERED: DEXTROSE 50% 25 GM/50 ML VIAL IV STA (19:45)
[2016-09-30] MEDS ORDERED: CALCIUM GLUCONATE 1,000 MG in SODIUM CHLORIDE 0.9% 100 ML IV ONE (19:45)
[2016-09-30] MEDS ORDERED: INSULIN REGULAR 100 UNIT/ML IV STA (19:45)
[2016-09-30] MEDS ORDERED: DEXTROSE 50% 25 GM/50 ML VIAL IV ONE (19:56)
[2016-09-30] MEDS ORDERED: INSULIN REGULAR 100 UNIT/ML ONE (19:57)
[2016-09-30 20:21] LABS: Apearance,Urine CLEAR (Clear); Bacteria,Urine Occasional /HPF (Few); Bilirubin,Urine Negative (Negative); Blood, Urine Negative (Negative); Glucose,Urine (UA) Negative (Negative); Ketones,Urine Negative (Negative); Mucus,Urine Occasional /LPF (Occasional); Nitrite,Urine Negative (Negative); Protein,Urine 100 MG/DL; RBC,Urine 1 /HPF (0-4); Urine Color Straw (Yellow); Urine Specific Gravity 1.005 (1.001-1.035); Urine Urobilinogen < 2.0 EU/DL (0.2-1.0); WBC,Urine 6 /HPF (0-6)
[2016-09-30] MEDS ORDERED: ONDANSETRON 4 MG/2 ML VIAL IV PRN (20:40)
[2016-09-30] MEDS ORDERED: ALBUTEROL 2.5 MG/3 ML NEB RESP TX PRN (20:40)
[2016-09-30] MEDS ORDERED: FUROSEMIDE 20 MG/2 ML VIAL IV STA (20:45)
[2016-09-30] MEDS ORDERED: HYDROmorphone 2 MG/1 ML VIAL IV STA (20:45)
[2016-09-30] MEDS ORDERED: HYDROmorphone 2 MG/1 ML VIAL ONE (20:48)
[2016-09-30] MEDS ORDERED: DEXTROSE 50% 25 GM/50 ML VIAL IV PRN (20:52)
[2016-09-30] MEDS ORDERED: GLUCAGON 1 MG VIAL IM PRN (20:52)
[2016-09-30] MEDS ORDERED: VALSARTAN 80 MG TABLET PO SCH (21:00)
--- NOTE | 2016-09-30 21:10 | Hospitalist History & Physical ---
Assessment and Plan (1) Acute renal failure Status: Acute Current Visit: Yes (2) Anemia, chronic disease Status: Acute Current Visit: Yes (3) Community acquired pneumonia Status: Acute Current Visit: Yes (4) Congestive heart failure Status: Acute Current Visit: Yes (5) Expressive aphasia Status: Acute Current Visit: Yes (6) History of abdominal aortic aneurysm (AAA) Status: Acute Current Visit: Yes (7) Hyperkalemia Status: Acute Current Visit: Yes (8) Hyponatremia Status: Acute Current Visit: Yes (9) Acute on chronic renal failure Status: Acute Current Visit: No (10) Diabetes mellitus Status: Chronic Current Visit: No Qualifiers: Diabetes mellitus type: type 2 Diabetes mellitus complication detail: with other kidney complication (11) History of multiple strokes Status: Chronic Current Visit: No (12) Hypertension Problem details: Increase clonidine to 0.1mg per tube TID. Continue coreg 25 bid , norvasc 5mg daily, change lasix to 80mg bid via tube, isordil 40mg tid. This should be his discharge antihypertensive regimen. Status: Chronic Assessment and plan: Patient again returned with an increasing pneumonia. Will have broad coverage with Zosyn and Levaquin. Going to consult pulmonary. He had been previously on the ventilator during the previous hospitalization. His kidney function appears to be deteriorating. Will consult renal for their input. Recheck potassium at 11 PM if it is still elevated after the ER medications will give some Kayexalate. Will hold his valsartan. This has a tendency to increased potassium. We will continue to monitor his blood pressure. Patient has a lot of chronic issues that will require future readmissions. Patient's sister wants him to be a full code. We are going to observe him in the ICU and reevaluate him in the morning. Current Visit: No Qualifiers: Hypertension type: essential hypertension Qualified Code(s): I10 - Essential (primary) hypertension History of Present Illness Chief complaint: Low O2 sats referred to our hospital from home health nurse History of present illness: Mr. Kim is a 61 year old male with multiple medical problems including history of multiple strokes aneurysm anemia leg ulcers several hospitalizations for pneumonia, chronic kidney disease who was just discharged from our hospital a week ago. He now presents back to the hospital with decreased O2 sats. His sister who cares for him at home reports he is was really doing well for the past week. He is really had no complaints of shortness of breath but when the home health nurse came to check on him his sats were low. He is on 2 L of home O2. His O2 sats were reported to be in the 70s. He was brought up to our hospital for further evaluation. Patient's family lives closer to [place] but desired to come up to our hospital. Patient is a Islam therefore no blood transfusions are allowed. I was consulted to admit the patient to the emergency room. Home Medications Medication Instructions Recorded Confirmed Type Aspirin EC Tab 81 mg PO QPM 08/06/16 09/05/16 History Ferrous Sulfate 325 mg PO BID 08/06/16 09/05/16 History Finasteride 5 mg PO DAILY 08/06/16 09/05/16 History Isosorbide Mononitrate [Imdur] 30 mg PO DAILY 08/06/16 09/05/16 History Methocarbamol 500 mg PO BID PRN 08/06/16 09/05/16 History Metoprolol Tartrate 50 mg PO TID 08/06/16 09/05/16 History Pregabalin [Lyrica] 225 mg PO BID 08/06/16 09/05/16 History Sertraline [Zoloft] 25 mg PO DAILY 08/06/16 09/05/16 History Tamsulosin [Flomax] 0.4 mg PO DAILY 08/06/16 09/05/16 History Valsartan 80 mg PO QID 08/06/16 09/05/16 History cloNIDine TAB [Catapres Tab] 0.1 mg PO Q4H 08/06/16 09/05/16 History Pantoprazole Tab [Protonix Tab] 40 mg PO DAILY 09/05/16 09/05/16 History Simvastatin 20 mg PO BEDTIME 09/05/16 09/05/16 History Acetaminophen Tab [Tylenol Tab] 325 mg PO Q4H PRN tablet 09/23/16 Rx Albuterol/Ipratropium Neb [Duoneb] 3 ml RESP TX RT Q4H #120 vial 09/23/16 Rx Cyanocobalamin Tab [Vitamin B12 500 mcg PO BID #60 tablet 09/23/16 Rx Tab] Folic Acid Tab 0.4 mg PO BID #60 tablet 09/23/16 Rx Insulin Glargine [Lantus] 15 unit SUBCUT BEDTIME #1 packet 09/23/16 Rx Acetaminophen Tab [Tylenol Tab] 325 mg PO Q4H PRN 09/30/16 09/30/16 History Albuterol/Ipratropium Neb [Duoneb] 3 ml RESP TX RT Q4H 09/30/16 09/30/16 History Aspirin EC Tab 81 mg PO QPM 09/30/16 09/30/16 History Cyanocobalamin Tab [Vitamin B12 500 mcg PO BID 09/30/16 09/30/16 History Tab] Ferrous Sulfate Tab [Feosol 325 mg PO BID 09/30/16 09/30/16 History Original Tab] Finasteride [Proscar] 5 mg PO DAILY 09/30/16 09/30/16 History Folic Acid Tab 0.4 mg PO BID 09/30/16 09/30/16 History Insulin Glargine [Lantus] 15 unit SUBCUT BEDTIME 09/30/16 09/30/16 History Isosorbide Mononitrate [Imdur] 30 mg PO DAILY 09/30/16 09/30/16 History Methocarbamol Tab [Robaxin Tab] 500 mg PO BID PRN 09/30/16 09/30/16 History Metoprolol Tartrate Tab [Lopressor 50 mg PO TID 09/30/16 09/30/16 History Tab] Pantoprazole Tab [Protonix Tab] 40 mg PO DAILY 09/30/16 09/30/16 History Pregabalin [Lyrica] 225 mg PO BID 09/30/16 09/30/16 History Sertraline [Zoloft] 25 mg PO DAILY 09/30/16 09/30/16 History Simvastatin 20 mg PO QPM 09/30/16 09/30/16 History Tamsulosin [Flomax] 0.4 mg PO DAILY 09/30/16 09/30/16 History Valsartan 80 mg PO QID 09/30/16 09/30/16 History cloNIDine TAB [Catapres Tab] 0.1 mg PO Q4H 09/30/16 09/30/16 History Allergies Allergy/AdvReac Type Severity Reaction Status Date / Time No Known Allergies Allergy Verified 09/05/16 15:45 Medical,Surgical,& Family Hx - Medical History Cardio: History of: Aneurysm, Hypertension Psychological: History of: Anxiety Disorders, Depression Neurology: History of: Cerebral Hemorrhage, Cerebrovascular Accident Endocrine: History of: Diabetes Mellitus (NIDDM) Rheumatology: History of;: Rheumatoid Arthritis Renal: History of: Renal Problems (decreased kidney function) Genitourinary: History of: Prostate Problems Gastrointestinal: History of: GERD, GI Problems (triple a) Hematology: History of: Anemia - Surgical History Neurologic Surgeries: Surgical HX of: Cerebral Hemorrhage - Family History Family History: Reports;: Family Diabetes, Family Heart Disease, Family Hypertension - Social History Smoking Status: Never smoker Frequency of Alcohol Use: None Type of Drug Use: None 12 point system: reviewed and no additional remarkable complaints except as stated Exam - Constitutional Vitals: Period Temp Pulse Resp BP Sys/Crespo Pulse Ox Last 24 Hr 98.2 F-98.2 F 83-101 18-24 173-173/67-73 85-96 - General General appearance: alert but appears chronically ill, - Head Head exam: Present: atraumatic, normocephalic, normal inspection - Eye Eye exam: Present: normal appearance, PERRL, EOMI. - ENT ENT exam: Present: normal exam, normal oropharynx, mucous membranes moist, - Neck Neck exam: Present: normal inspection, full ROM, trachea midline. - Chest Chest inspection: Present: normal inspection, symmetric chest wall rise. - Respiratory Respiratory exam: Present: rales (Bibasilar rales), rhonchi (Harse Rhonchi). Absent: normal lung sounds bilaterally - Cardiovascular Cardiovascular exam: Present: regular rate, normal rhythm, normal heart sounds. Absent: murmur, rubs, gallop, clicks - Abdominal Exam Abdominal exam: Present: soft, distention, diminished bowel sounds, other ( Feeding tube in place which appears to be infected, is not cleaned ). Absent: tenderness, guarding, rebound, rigidity - Rectal Exam Rectal exam: Present: deferred - Extremities Exam Extremities exam: Present: normal capillary refill, multiple toe amputations - Back Exam Back exam: Present: normal inspection, full ROM. Absent: tenderness, muscle spasm, rashes - Neurological Exam Neurological exam: Present: alert, motor sensory deficit (Motor Sensory deficits secondary to multiple CVAs. ) - Psychiatric Psychiatric exam: Present: normal affect, normal mood. Absent: depressed, agitated, anxious, flat affect, manic - Skin Skin exam: Present: warm, dry, intact, normal color. Absent: cyanosis, diaphoresis, erythema, pallor, mottled Results - Labs CBC & BMP: 09/30/16 19:04 09/30/16 19:04
[2016-09-30] MEDS: PIPERACILLIN/TAZOBACTAM 3,375 MG in SODIUM CHLORIDE 0.9% 100 ML IV SCH (23:24)
[2016-09-30] MEDS: INSULIN REGULAR 100 UNIT/ML SUBCUT SCH (23:25)
[2016-09-30] MEDS: LEVOFLOXACIN INJ 500 MG in PREMIX 1 EACH IV SCH (23:25)
[2016-09-30] MEDS: FERROUS SULFATE 325 MG TABLET PO SCH (23:25)
[2016-09-30] MEDS: CYANOCOBALAMIN 500 MCG TABLET PO SCH (23:26)
[2016-09-30] MEDS: FOLIC ACID 0.4 MG TABLET PO SCH (23:26)
[2016-09-30] MEDS: PREGABALIN 75 MG CAPSULE PO SCH (23:26)
[2016-09-30] MEDS: METOPROLOL TARTRATE 50 MG TABLET PO SCH (23:27)
[2016-09-30] MEDS: ENOXAPARIN 30 MG/0.3 ML SYRINGE SUBCUT SCH (23:28)
[2016-10-01] MEDS ORDERED: SODIUM POLYSTYRENE SULFATE 15 GM/60 ML BOTTLE PO ONE (00:54)
[2016-10-01] MEDS: HYDROmorphone 2 MG/1 ML VIAL IV PRN ×2 (01:13→04:39)
[2016-10-01] MEDS: LABETALOL 20 MG/4 ML SYRINGE IV PRN ×3 (01:14→10:07)
[2016-10-01] MEDS: ALBUTEROL/IPRATROPIUM 3 ML NEB RESP TX SCH ×4 (01:16→20:08)
[2016-10-01 06:43] LABS: Eosinophils % 0.1 % (0.00-10.9); Hematocrit 23.2 VOL% (42.0-52.0); Hemoglobin 7.3 GM/DL (14.0-18.0); Immature Granulocytes % 0.9 %; Immature Granulocytes Absolute 0.07 #; Lymphocytes # 0.1 10*3/uL (1.4-4.0); Lymphocytes % 0.9 % (21.2-54.2); Mean Corpuscular HGB Conc 31.5 GM/DL (32-36); Mean Corpuscular Hemoglobin 31 PG (27-34); Mean Corpuscular Volume 98.7 FL (87-102); Mean Platelet Volume 12.6 FL (9.6-12.0); Monocytes % 0.3 % (1.7-12.7); Neutrophils # 7.7 10*3/uL (1.4-7.4); Neutrophils % 97.8 % (38.7-73.9); Platelet Count 220 T/CUMM (130-400); Red Blood Count 2.35 MC/CUMM (3.8-5.5); Red Cell Distribution Width 23.2 % (9.3-17.3); White Blood Count 7.9 T/CUMM (4-12)
[2016-10-01 07:05] LABS: Calcium 8.5 MG/DL (8.5-10.1); Osmolality,Calculated 304.8 MOS/KG (273-304)
[2016-10-01 07:08] LABS: Potassium 7.6 MMOL/L (3.5-5.1)
[2016-10-01 07:10] LABS: Band Neutrophils 3 % (0-10); Eosinophils 1 % (0-10); Platelet Estimate Adequate; Segmented Neutrophils 96 % (50-85); Total Cells Counted 100
[2016-10-01 07:11] LABS: Basophilic Stippling Slight; Giant Platelets Few; Hypochromasia 1+
--- NOTE | 2016-10-01 08:25 | Hospitalist Progress Note ---
Hospitalist: Subjective Interval history: Pt opens eyes. Coughing but weak. No BM yet. No fever. Exam - Constitutional Vitals: Period Temp Pulse Resp BP Sys/Crespo Pulse Ox Last 24 Hr 97 F-98.2 F 82-101 9-24 144-182/67-85 83-100 Exam: Awake, nonverbal, chronically ill appearing RRR no M Coarse bilaterally, nonlabored, clear upper lobes, diminished at the bases Soft, distended, hypoactive bowel sounds, NTTP Warm no c/c/e. Abrasions on dorsal surface of left foot Results - Labs CBC & BMP: 10/01/16 06:29 10/01/16 06:29 - Impressions (1) Acute renal failure on suspected CKD 4 Status: Acute Current Visit: Yes - Start IVF - Holding Valsartan - Repeat Tian's cocktail and Kayexalate. I have asked nurse to check for bowel impaction - telemetry - serial labs - nephrology consult (2) Hyperkalemia Status: Acute Current Visit: Yes - Holding Valsartan - Repeat Tian's cocktail and Kayexalate. I have asked nurse to check for bowel impaction - has received calcium for myocardial stabilizat - telemetry (3) History of multiple strokes s/p dysphagia on tubefeeds and expressive aphasia Status: Chronic Current Visit: Yes - Tubefeeds per nutrition recs (4) Suspected aspiration pneumonia Status: Acute Current Visit: Yes - Cont IV antibiotics, bronchodilators, pulm toileting and add IPPB (5) Anemia, chronic disease due to chronic kidney disease and pt is a Jehovah Witness Status: Acute Current Visit: Yes - iron supplementation. no transfusion due to jain beliefs (6) Chronic diastolic congestive heart failure with preserved EF 60% by last ECHO Status: Acute Current Visit: Yes -Currently compensated. Monitor I's and O's (7) History of abdominal aortic aneurysm (AAA) Status: Acute Current Visit: Yes -Patient and family have declined surgical intervention in the past. monitor (8) Hyponatremia Status: Acute Current Visit: Yes -Likely due to renal failure. Monitor. (9) Diabetes mellitus Status: Chronic Current Visit: No Qualifiers: Diabetes mellitus type: type 2 Diabetes mellitus complication detail: with other kidney complication -Insulin sliding scale. Accu-Cheks every 6. (10) Essential Hypertension- uncontrolled - Cont clonidine to 0.1mg per tube TID. Continue coreg 25 bid, norvasc 5mg daily , isordil 40mg tid. Current Visit: yes Qualifiers: Hypertension type: essential hypertension Qualified Code(s): I10 - Essential (primary) hypertension DVT prophylaxis-Lovenox
[2016-10-01] MEDS ORDERED: SODIUM POLYSTYRENE SULFATE 15 GM/60 ML BOTTLE RECTAL ONE (08:27)
[2016-10-01] MEDS ORDERED: SODIUM ACETATE IV SCH ×2 (08:30→12:00)
[2016-10-01] MEDS ORDERED: [UNRECOGNIZED DRUG - OTHER] IV SCH (08:30)
[2016-10-01] MEDS ORDERED: INSULIN REGULAR IV SCH (08:30)
[2016-10-01] MEDS ORDERED: DEXTROSE IV SCH (08:30)
--- NOTE | 2016-10-01 08:45 | Pulmonology Consult Note ---
Assessment and Plan (1) History of multiple strokes Status: Chronic Assessment and plan: The patient has had multiple strokes and is bedridden. Current Visit: No (2) Dementia Status: Acute Assessment and plan: Patient will arouse but is not very alert. Current Visit: No (3) Diabetes mellitus Status: Chronic Assessment and plan: His glucoses will be monitored. Current Visit: No Qualifiers: Diabetes mellitus type: type 2 Diabetes mellitus complication detail: with other kidney complication (4) Hyperkalemia Status: Acute Assessment and plan: The patient will require treatment for hyperkalemia. His potassium was 7.6 Current Visit: No (5) Leg ulcer Status: Acute Assessment and plan: The patient has had bilateral leg ulcers. Current Visit: No (6) CKD stage 4 due to type 2 diabetes mellitus Problem details: No indication for renal replacement therapy. Pt is not a good chronic dialysis candidate due to comorbidities. Status: Acute Assessment and plan: The patient has chronic renal failure with a creatinine of 4.1 Current Visit: No (7) Chronic respiratory failure Status: Acute Assessment and plan: The patient likely has aspiration pneumonia and chronic respiratory problems. He has very poor pulmonary toilet. Current Visit: Yes (8) Anemia, chronic disease Status: Acute Assessment and plan: The patient has chronic anemia with a hemoglobin of 7.3 Current Visit: Yes (9) Congestive heart failure Status: Acute Assessment and plan: Patient's chest x-ray looks like pulmonary edema. Will try to diurese a little. Current Visit: Yes History of Present Illness Chief complaint: Shortness of breath History of present illness: Mr. Kim is a 61 year old white male that has numerous medical problems. He has multi-infarct dementia and is bedridden. 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 He recently had some mild GI bleeding that resolved. He does have some chronic leg wounds and is quite debilitated. Recently he was in with respiratory failure and aspiration pneumonia and was on the ventilator. His lungs did improve but now they are worse again. He does have chronic renal insufficiency and may be somewhat overloaded. He has had some respiratory distress but is comfortable now on oxygen. Home Medications Medication Instructions Recorded Confirmed Type Aspirin EC Tab 81 mg PO QPM 08/06/16 09/05/16 History Ferrous Sulfate 325 mg PO BID 08/06/16 09/05/16 History Finasteride 5 mg PO DAILY 08/06/16 09/05/16 History Isosorbide Mononitrate [Imdur] 30 mg PO DAILY 08/06/16 09/05/16 History Methocarbamol 500 mg PO BID PRN 08/06/16 09/05/16 History Metoprolol Tartrate 50 mg PO TID 08/06/16 09/05/16 History Pregabalin [Lyrica] 225 mg PO BID 08/06/16 09/05/16 History Sertraline [Zoloft] 25 mg PO DAILY 08/06/16 09/05/16 History Tamsulosin [Flomax] 0.4 mg PO DAILY 08/06/16 09/05/16 History Valsartan 80 mg PO QID 08/06/16 09/05/16 History cloNIDine TAB [Catapres Tab] 0.1 mg PO Q4H 08/06/16 09/05/16 History Pantoprazole Tab [Protonix Tab] 40 mg PO DAILY 09/05/16 09/05/16 History Simvastatin 20 mg PO BEDTIME 09/05/16 09/05/16 History Acetaminophen Tab [Tylenol Tab] 325 mg PO Q4H PRN tablet 09/23/16 Rx Albuterol/Ipratropium Neb [Duoneb] 3 ml RESP TX RT Q4H #120 vial 09/23/16 Rx Cyanocobalamin Tab [Vitamin B12 500 mcg PO BID #60 tablet 09/23/16 Rx Tab] Folic Acid Tab 0.4 mg PO BID #60 tablet 09/23/16 Rx Insulin Glargine [Lantus] 15 unit SUBCUT BEDTIME #1 packet 09/23/16 Rx Acetaminophen Tab [Tylenol Tab] 325 mg PO Q4H PRN 09/30/16 09/30/16 History Albuterol/Ipratropium Neb [Duoneb] 3 ml RESP TX RT Q4H 09/30/16 09/30/16 History Aspirin EC Tab 81 mg PO QPM 09/30/16 09/30/16 History Cyanocobalamin Tab [Vitamin B12 500 mcg PO BID 09/30/16 09/30/16 History Tab] Ferrous Sulfate Tab [Feosol 325 mg PO BID 09/30/16 09/30/16 History Original Tab] Finasteride [Proscar] 5 mg PO DAILY 09/30/16 09/30/16 History Folic Acid Tab 0.4 mg PO BID 09/30/16 09/30/16 History Insulin Glargine [Lantus] 15 unit SUBCUT BEDTIME 09/30/16 09/30/16 History Isosorbide Mononitrate [Imdur] 30 mg PO DAILY 09/30/16 09/30/16 History Methocarbamol Tab [Robaxin Tab] 500 mg PO BID PRN 09/30/16 09/30/16 History Metoprolol Tartrate Tab [Lopressor 50 mg PO TID 09/30/16 09/30/16 History Tab] Pantoprazole Tab [Protonix Tab] 40 mg PO DAILY 09/30/16 09/30/16 History Pregabalin [Lyrica] 225 mg PO BID 09/30/16 09/30/16 History Sertraline [Zoloft] 25 mg PO DAILY 09/30/16 09/30/16 History Simvastatin 20 mg PO QPM 09/30/16 09/30/16 History Tamsulosin [Flomax] 0.4 mg PO DAILY 09/30/16 09/30/16 History Valsartan 80 mg PO QID 09/30/16 09/30/16 History cloNIDine TAB [Catapres Tab] 0.1 mg PO Q4H 09/30/16 09/30/16 History Allergies Allergy/AdvReac Type Severity Reaction Status Date / Time No Known Allergies Allergy Verified 09/05/16 15:45 ROS unobtainable: due to mental status (He is unable to give any history.) Exam (Pulmonay) H&P - Constitutional Vitals: Period Temp Pulse Resp BP Sys/Crespo Pulse Ox Last 24 Hr 97 F-98.2 F 82-101 9-24 144-182/67-85 83-100 Exam: General appearance: the patient is responsive but is still quite lethargic. He is breathing comfortably on facemask O2. - Head Head exam: Present: normal inspection, normocephalic - Eye Eye exam: Present: EOMI. Absent: scleral icterus Pupils: Present: JOVANY - ENT ENT exam: Present: other (He has very pale) - Neck Neck exam: Present: normal inspection. Absent: lymphadenopathy, thyromegaly - Respiratory Respiratory exam: Present: He has equal breath sounds bilaterally but he does have bilateral rhonchi and rales. - Cardiovascular Cardiovascular exam: Present: regular rate and rhythm, systolic murmur (He does have a soft murmur). Absent: gallop - GI/Abdominal GI/Abdominal exam: Present: hypoactive bowel sounds, soft. Absent: organomegaly , tenderness - Extremities Exam Extremities exam: Present: other (Multiple toe amputations). Absent: calf tenderness, edema - Neurological Exam Neurological exam: Present: other (He is lethargic but does respond some.) - Psychiatric Psychiatric exam: Absent: anxious - Skin Skin exam: Present: warm, pallor Medical,Surgical,& Family Hx - Medical History Cardio: History of: Aneurysm, Hypertension Psychological: History of: Anxiety Disorders, Depression Neurology: History of: Cerebral Hemorrhage, Cerebrovascular Accident Endocrine: History of: Diabetes Mellitus (NIDDM) Rheumatology: History of;: Rheumatoid Arthritis Respiratory: History of: Pneumonia Renal: History of: Renal Problems (decreased kidney function) Genitourinary: History of: Prostate Problems Gastrointestinal: History of: GERD, GI Problems (triple a) Hematology: History of: Anemia - Surgical History Neurologic Surgeries: Surgical HX of: Cerebral Hemorrhage - Family History Family History: Reports;: Family Diabetes, Family Heart Disease, Family Hypertension - Social History Smoking Status: Never smoker Frequency of Alcohol Use: None Type of Drug Use: None Results - Labs CBC & BMP: 10/01/16 06:29 10/01/16 06:29 Labs: PO2 was 60 with a PCO2 of 42 and a pH of 7.34 - Diagnostic Findings Procedure: Chest x-ray: image reviewed by me, report reviewed by me (Chest x- ray shows extensive bilateral infiltrates and some of this may be pulmonary edema.)
[2016-10-01] MEDS ORDERED: FUROSEMIDE 40 MG/4 ML VIAL IV ONE (08:54)
[2016-10-01] MEDS: INSULIN REGULAR 100 UNIT/ML SUBCUT SCH ×3 (09:36→17:53)
[2016-10-01] MEDS: FERROUS SULFATE 325 MG TABLET PO SCH (09:39)
[2016-10-01] MEDS: FOLIC ACID 0.4 MG TABLET PO SCH ×2 (09:40→21:15)
[2016-10-01] MEDS: TAMSULOSIN 0.4 MG CAPSULE PO SCH (09:40)
[2016-10-01] MEDS: METOPROLOL TARTRATE 50 MG TABLET PO SCH ×3 (09:41→21:15)
[2016-10-01] MEDS: ISOSORBIDE MONONITRATE 30 MG TABLET PO SCH (09:41)
[2016-10-01] MEDS: PREGABALIN 75 MG CAPSULE PO SCH (09:42)
[2016-10-01] MEDS: FINASTERIDE 5 MG TABLET PO SCH (09:42)
[2016-10-01] MEDS: PANTOPRAZOLE 40 MG TABLET PO SCH (09:43)
[2016-10-01] MEDS: SERTRALINE 25 MG TABLET PO SCH (09:43)
[2016-10-01] MEDS: CYANOCOBALAMIN 500 MCG TABLET PO SCH ×2 (09:43→21:15)
[2016-10-01] MEDS ORDERED: BISACODYL 10 MG SUPP RECTAL PRN (11:13)
[2016-10-01] MEDS: PIPERACILLIN/TAZOBACTAM 3,375 MG in SODIUM CHLORIDE 0.9% 100 ML IV SCH ×2 (11:14→22:00)
[2016-10-01] MEDS ORDERED: SODIUM CHLORIDE 0.45% IV SCH (12:00)
[2016-10-01] MEDS: SODIUM ACETATE 100 MEQ in DEXTROSE 5% 1,000 ML IV SCH (13:20)
[2016-10-01] MEDS: BACITRACIN OINT 0.9 GM PACK TOP SCH (13:21)
[2016-10-01] MEDS: DESITIN 4OZ/NYSTATIN 15 GRAM MIXTURE PASTE TOP SCH ×2 (13:21→23:42)
--- NOTE | 2016-10-01 14:11 | Nephrology Consult Note ---
History of Present Illness Chief complaint: Pt referred for hyperkalemia, ANT on CKD. History of present illness: Mr. Kim is a 61 year old male recently discharged on 09/23/2016. His antihypertensive regimen was supposed to be: clonidine 0.1mg per tube tid, coreg 25mg per tube bid, norvasc 5mg daily, lasix 80mg bid, isordil 40mg tid. He was discharged on valsartan 80mg po qid and lasix 40mg. This is the most likely cause of his ANT and hyperkalemia to >7.4 up to 7.6 this am. Was given calcium, albuterol, insulin/glucose and kayexalate 30gms po x 1. He was given another 30gms kayexalate this am rectally. Pt recently admitted for suspected aspiration pneumonia, severe iron deficiency anemia with Hgb in 5 range. Given IV iron x 6 doses of 200mg each daily and epogen. He has multiinfarct dementia, feeding tube. He has spontaneous eye opening but does not respond verbally to simple questions. Sister at bedside has been the primary animal care worker for Mr Kim for approx 35yrs. Home Medications Medication Instructions Recorded Confirmed Type Aspirin EC Tab 81 mg PO QPM 08/06/16 09/05/16 History Ferrous Sulfate 325 mg PO BID 08/06/16 09/05/16 History Finasteride 5 mg PO DAILY 08/06/16 09/05/16 History Isosorbide Mononitrate [Imdur] 30 mg PO DAILY 08/06/16 09/05/16 History Methocarbamol 500 mg PO BID PRN 08/06/16 09/05/16 History Metoprolol Tartrate 50 mg PO TID 08/06/16 09/05/16 History Pregabalin [Lyrica] 225 mg PO BID 08/06/16 09/05/16 History Sertraline [Zoloft] 25 mg PO DAILY 08/06/16 09/05/16 History Tamsulosin [Flomax] 0.4 mg PO DAILY 08/06/16 09/05/16 History Valsartan 80 mg PO QID 08/06/16 09/05/16 History cloNIDine TAB [Catapres Tab] 0.1 mg PO Q4H 08/06/16 09/05/16 History Pantoprazole Tab [Protonix Tab] 40 mg PO DAILY 09/05/16 09/05/16 History Simvastatin 20 mg PO BEDTIME 09/05/16 09/05/16 History Acetaminophen Tab [Tylenol Tab] 325 mg PO Q4H PRN tablet 09/23/16 Rx Albuterol/Ipratropium Neb [Duoneb] 3 ml RESP TX RT Q4H #120 vial 09/23/16 Rx Cyanocobalamin Tab [Vitamin B12 500 mcg PO BID #60 tablet 09/23/16 Rx Tab] Folic Acid Tab 0.4 mg PO BID #60 tablet 09/23/16 Rx Insulin Glargine [Lantus] 15 unit SUBCUT BEDTIME #1 packet 09/23/16 Rx Acetaminophen Tab [Tylenol Tab] 325 mg PO Q4H PRN 09/30/16 09/30/16 History Albuterol/Ipratropium Neb [Duoneb] 3 ml RESP TX RT Q4H 09/30/16 09/30/16 History Aspirin EC Tab 81 mg PO QPM 09/30/16 09/30/16 History Cyanocobalamin Tab [Vitamin B12 500 mcg PO BID 09/30/16 09/30/16 History Tab] Ferrous Sulfate Tab [Feosol 325 mg PO BID 09/30/16 09/30/16 History Original Tab] Finasteride [Proscar] 5 mg PO DAILY 09/30/16 09/30/16 History Folic Acid Tab 0.4 mg PO BID 09/30/16 09/30/16 History Insulin Glargine [Lantus] 15 unit SUBCUT BEDTIME 09/30/16 09/30/16 History Isosorbide Mononitrate [Imdur] 30 mg PO DAILY 09/30/16 09/30/16 History Methocarbamol Tab [Robaxin Tab] 500 mg PO BID PRN 09/30/16 09/30/16 History Metoprolol Tartrate Tab [Lopressor 50 mg PO TID 09/30/16 09/30/16 History Tab] Pantoprazole Tab [Protonix Tab] 40 mg PO DAILY 09/30/16 09/30/16 History Pregabalin [Lyrica] 225 mg PO BID 09/30/16 09/30/16 History Sertraline [Zoloft] 25 mg PO DAILY 09/30/16 09/30/16 History Simvastatin 20 mg PO QPM 09/30/16 09/30/16 History Tamsulosin [Flomax] 0.4 mg PO DAILY 09/30/16 09/30/16 History Valsartan 80 mg PO QID 09/30/16 09/30/16 History cloNIDine TAB [Catapres Tab] 0.1 mg PO Q4H 09/30/16 09/30/16 History Allergies Allergy/AdvReac Type Severity Reaction Status Date / Time No Known Allergies Allergy Verified 09/05/16 15:45 Medical,Surgical,& Family Hx - Medical History Cardio: History of: Aneurysm, Hypertension Psychological: History of: Anxiety Disorders, Depression Neurology: History of: Cerebral Hemorrhage, Cerebrovascular Accident Endocrine: History of: Diabetes Mellitus (NIDDM) Rheumatology: History of;: Rheumatoid Arthritis Respiratory: History of: Pneumonia Renal: History of: Renal Problems (decreased kidney function) Genitourinary: History of: Prostate Problems Gastrointestinal: History of: GERD, GI Problems (triple a) Hematology: History of: Anemia - Surgical History Neurologic Surgeries: Surgical HX of: Cerebral Hemorrhage - Family History Family History: Reports;: Family Diabetes, Family Heart Disease, Family Hypertension - Social History Smoking Status: Never smoker Frequency of Alcohol Use: None Type of Drug Use: None Exam - Vital Signs Vital signs: Period Temp Pulse Resp BP Sys/Crespo Pulse Ox Last 24 Hr 97 F-98.2 F 82-101 9-24 144-182/67-85 83-100 - General Appearance General appearance: well-developed, chronically ill EENT: ATNC, PERRL, mucous membranes dry Neck: no JVD, no thyromegaly Respiratory: no kyphosis, clear Cardiology: no murmurs, no rub Gastrointestinal: normoactive bowel sounds, no tenderness Integumentary: no rash, warm and dry Neurologic: no asterixis, aphasic Musculoskeletal: no deformities, no erythema Results - Labs CBC & BMP: 10/01/16 06:29 10/01/16 06:29 Assessment and Plan (1) Hyperkalemia Problem details: No EKG changes, but has had two doses of kayexalate, 30gms po and 30gms as retention enema. Repeat check potassium. IVFs changed. No indication for dialysis. Not a chronic dialysis candidate due to comorbidities/ dementia. Status: Acute Assessment and plan: Avoid ACEI/ARB therapy in the future. See recommended antihypertensive regimen. Current Visit: Yes (2) Hyponatremia Status: Acute Current Visit: Yes (3) Sequela of cerebrovascular accident Status: Acute Current Visit: Yes (4) BPH (benign prostatic hyperplasia) Status: Acute Current Visit: No (5) CKD stage 4 due to type 2 diabetes mellitus Problem details: No indication for renal replacement therapy. Pt is not a good chronic dialysis candidate due to comorbidities. Status: Acute Current Visit : No (6) Dementia Status: Acute Current Visit: No
[2016-10-01] MEDS ORDERED: ASPIRIN EC 81 MG TABLET PO SCH (21:00)
[2016-10-01] MEDS ORDERED: SIMVASTATIN 20 MG TABLET PO SCH (21:00)
[2016-10-01] MEDS: ASPIRIN CHEW 81 MG TABLET PO SCH (21:15)
[2016-10-01] MEDS: INSULIN GLARGINE 100 UNIT/ML SUBCUT SCH (21:15)
[2016-10-01] MEDS: ENOXAPARIN 30 MG/0.3 ML SYRINGE SUBCUT SCH (21:15)
[2016-10-02] MEDS: ALBUTEROL/IPRATROPIUM 3 ML NEB RESP TX SCH ×3 (00:20→14:06)
[2016-10-02] MEDS: INSULIN REGULAR 100 UNIT/ML SUBCUT SCH ×4 (01:21→19:30)
[2016-10-02] MEDS: SODIUM ACETATE 100 MEQ in DEXTROSE 5% 1,000 ML IV SCH ×4 (01:49→23:22)
--- NOTE | 2016-10-02 04:45 | EKG Report ---
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
[2016-10-02 06:30] LABS: Calcium 7.9 MG/DL (8.5-10.1); Magnesium 3.3 MG/DL (1.8-2.4); Osmolality,Calculated 315.7 MOS/KG (273-304); Phosphorous 6.9 MG/DL (2.5-4.9); Potassium 4.2 MMOL/L (3.5-5.1); Prealbumin 23.5 MG/DL (20-40)
--- NOTE | 2016-10-02 08:24 | Hospitalist Progress Note ---
Hospitalist: Subjective Interval history: Tolerating tubefeeds. Sputum culture ordered. Thick secretions. No fever. BM x 1 yesterday. Exam - Constitutional Vitals: Period Temp Pulse Resp BP Sys/Crespo Pulse Ox Last 24 Hr 98.1 F-98.7 F 78-109 12-28 108-189/48-89 86-100 Exam: Awake, nonverbal, chronically ill appearing RRR no M Coarse bilaterally, nonlabored, iminished at the bases Soft, distended, hypoactive bowel sounds, NTTP Warm no c/c/e. Abrasions on dorsal surface of left foot Results - Labs CBC & BMP: 10/01/16 06:29 10/02/16 05:04 Labs: Blood culture- /2 GPC not MRSA or Staph Aureus- suspected contamination - Impressions (1) Acute renal failure on suspected CKD 4- improving Status: Acute Current Visit: Yes - Cont IVF - Holding Valsartan - s/p Tian's cocktail and Kayexalate x 2 - telemetry - serial labs - nephrology following (2) Hyperkalemia- resolved Status: Acute Current Visit: Yes - Holding Valsartan - s/p Tian's cocktail and Kayexalate x 2. - s/p calcium for myocardial stabilization - telemetry (3) History of multiple strokes s/p dysphagia on tubefeeds and expressive aphasia Status: Chronic Current Visit: Yes - Tubefeeds per nutrition recs (4) Suspected aspiration pneumonia Status: Acute Current Visit: Yes - Cont IV antibiotics, bronchodilators, pulm toileting with IPPB. Recheck CXR. Pulm following. Add mucomyst. - F/U Blood cultures and sputum cultures. - Add mucinex (5) Anemia, chronic disease due to chronic kidney disease and pt is a Jehovah Witness Status: Acute Current Visit: Yes - iron supplementation. no transfusion due to adventist beliefs - has received Epo and Iron in the past. Will defer to nephrology for any additional treatment (6) Chronic diastolic congestive heart failure with preserved EF 60% by last ECHO Status: Acute Current Visit: Yes -Currently compensated. Monitor I's and O's (7) History of abdominal aortic aneurysm (AAA) Status: Acute Current Visit: Yes -Patient and family have declined surgical intervention in the past. monitor (8) Hyponatremia due to renal failure- resolved Status: Acute Current Visit: Yes -Likely due to renal failure. Monitor. (9) Diabetes mellitus- uncontrolled Status: Chronic Current Visit: No Qualifiers: Diabetes mellitus type: type 2 Diabetes mellitus complication detail: with other kidney complication -Insulin sliding scale. Accu-Cheks every 6. Schedule Long acting insulin (10) Essential Hypertension- controlled - Cont clonidine to 0.1mg per tube TID. Continue coreg 25 bid, norvasc 5mg daily , isordil 40mg tid. Current Visit: yes Qualifiers: Hypertension type: essential hypertension Qualified Code(s): I10 - Essential (primary) hypertension (11) Hypocalcemia - replace DVT prophylaxis-Lovenox Attempted to update sister at [phone] (Danielle King) and I was only able to leave a message.
--- NOTE | 2016-10-02 08:31 | Pulmonology Progress Note ---
Pulmonary - PN: Subj Interval history: Patient is a 61-year-old white man that is very debilitated. 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 He has chronic renal failure with anemia chronic disease and does not want blood because the family is Zoroastrian. He now has congestive heart failure and possible pneumonia. He cannot clear secretions very well at all. He did diurese a little yesterday. He is comfortable on oxygen. He seems to be breathing fairly well at present. Exam (Progress Note) - Constitutional Vitals: Period Temp Pulse Resp BP Sys/Crespo Pulse Ox Last 24 Hr 98.1 F-98.7 F 78-109 12-28 108-189/48-89 86-100 Exam: General appearance: the patient is comfortable on facemask oxygen and does respond a little. - Head Head exam: Present: normal inspection, normocephalic - Eye Eye exam: Present: EOMI. Absent: scleral icterus Pupils: Present: JOVANY - ENT ENT exam: Present: other (He has very pale) - Neck Neck exam: Present: normal inspection. Absent: lymphadenopathy, thyromegaly - Respiratory Respiratory exam: Present: He has equal breath sounds bilaterally but he does have bilateral rhonchi and rales. He still has a very poor cough. - Cardiovascular Cardiovascular exam: Present: regular rate and rhythm, systolic murmur (He does have a soft murmur). Absent: gallop - GI/Abdominal GI/Abdominal exam: Present: hypoactive bowel sounds, soft. Absent: organomegaly , tenderness - Extremities Exam Extremities exam: Present: other (Multiple toe amputations). Absent: calf tenderness, edema - Neurological Exam Neurological exam: Present: other (He is lethargic but does respond some.) - Psychiatric Psychiatric exam: Absent: anxious - Skin Skin exam: Present: warm, pallor Results - Labs CBC & BMP: 10/01/16 06:29 10/02/16 05:04 Assessment and Plan (1) History of multiple strokes Status: Chronic Assessment and plan: The patient has had multiple strokes and is bedridden. He is extremely debilitated. Current Visit: No (2) Dementia Status: Acute Assessment and plan: Patient will arouse but is not very alert. He is not really following commands. Current Visit: No (3) Diabetes mellitus Status: Chronic Assessment and plan: His glucoses will be monitored. His glucose was 276 this morning. Current Visit: No Qualifiers: Diabetes mellitus type: type 2 Diabetes mellitus complication detail: with other kidney complication (4) Hyperkalemia Status: Acute Assessment and plan: The patient has gotten some treatment for his high potassium and it is down to 4.2 now. Current Visit: No (5) Leg ulcer Status: Acute Assessment and plan: The patient has had bilateral leg ulcers. Current Visit: No (6) CKD stage 4 due to type 2 diabetes mellitus Problem details: No indication for renal replacement therapy. Pt is not a good chronic dialysis candidate due to comorbidities. Status: Acute Assessment and plan: The patient has chronic renal failure and his creatinine is down to 3.7 today. Current Visit: No (7) Chronic respiratory failure Status: Acute Assessment and plan: The patient likely has aspiration pneumonia and chronic respiratory problems. He has very poor pulmonary toilet. He is getting antibiotics for pneumonia. Some of this is probably volume overload. Will check a chest x-ray tomorrow. Current Visit: Yes (8) Anemia, chronic disease Status: Acute Assessment and plan: The patient has chronic anemia with a hemoglobin of 7.3 Current Visit: Yes (9) Congestive heart failure Status: Acute Assessment and plan: Patient's chest x-ray looks like pulmonary edema. He did diurese him yesterday. He is reasonably comfortable but still requires oxygen. Current Visit: Yes
--- NOTE | 2016-10-02 09:45 | Nephrology Progress Note ---
Nephrology - PN: Subj Interval history: Pt has spontaneous eye opening. Does not respond to verbal commands. K normal, Creatinine improved. Exam (PN)-Nephrology - Vital Signs Vital signs: Period Temp Pulse Resp BP Sys/Crespo Pulse Ox Last 24 Hr 98.1 F-98.7 F 78-114 12-28 108-189/48-89 88-100 - General Appearance General appearance: chronically ill, frail EENT: ATNC, PERRL, mucous membranes dry, vision intact Neck: no JVD, no thyromegaly Respiratory: no kyphosis, rales Cardiology: no murmurs, no rub, no edema Gastrointestinal: normoactive bowel sounds, no tenderness Integumentary: no rash, warm and dry Neurologic: no asterixis, aphasia Musculoskeletal: no deformities, no erythema - Lab 10/01/16 06:29 10/02/16 05:04 Most recent lab results ABG pH 7.347 (7.35-7.45) L 09/30/16 19:14 ABG pCO2 42.0 MM HG (35-48) 09/30/16 19:14 ABG pO2 60.2 MM HG (80-95) L 09/30/16 19:14 ABG HCO3 22.5 MMOL/L (20-26) 09/30/16 19:14 ABG O2 Saturation 87.3 % (95-100) L 09/30/16 19:14 Calcium 7.9 MG/DL (8.5-10.1) L 10/02/16 05:04 Phosphorus 6.9 MG/DL (2.5-4.9) H 10/02/16 05:04 Magnesium 3.3 MG/DL (1.8-2.4) H 10/02/16 05:04 Assessment and Plan (1) Hyperkalemia Problem details: No indication for dialysis. Not a chronic dialysis candidate due to comorbidities/dementia. Status: Acute Assessment and plan: Avoid ACEI/ARB therapy in the future. See recommended antihypertensive regimen. Current Visit: Yes (2) Hyponatremia Status: Acute Current Visit: Yes (3) Sequela of cerebrovascular accident Status: Acute Current Visit: Yes (4) BPH (benign prostatic hyperplasia) Status: Acute Current Visit: No (5) CKD stage 4 due to type 2 diabetes mellitus Problem details: No indication for renal replacement therapy. Pt is not a good chronic dialysis candidate due to comorbidities. Status: Acute Current Visit : No (6) Dementia Status: Acute Current Visit: No
[2016-10-02] MEDS: BACITRACIN OINT 0.9 GM PACK TOP SCH (09:47)
[2016-10-02] MEDS: TAMSULOSIN 0.4 MG CAPSULE PO SCH (09:49)
[2016-10-02] MEDS: CYANOCOBALAMIN 500 MCG TABLET PO SCH ×2 (09:49→20:30)
[2016-10-02] MEDS: FOLIC ACID 0.4 MG TABLET PO SCH ×2 (09:49→20:30)
[2016-10-02] MEDS: SERTRALINE 25 MG TABLET PO SCH (09:49)
[2016-10-02] MEDS: PANTOPRAZOLE 40 MG TABLET PO SCH (09:50)
[2016-10-02] MEDS: FINASTERIDE 5 MG TABLET PO SCH (09:51)
[2016-10-02] MEDS: ISOSORBIDE MONONITRATE 30 MG TABLET PO SCH (09:52)
[2016-10-02] MEDS: DESITIN 4OZ/NYSTATIN 15 GRAM MIXTURE PASTE TOP SCH ×2 (09:53→20:30)
[2016-10-02] MEDS: METOPROLOL TARTRATE 50 MG TABLET PO SCH ×3 (09:53→20:30)
[2016-10-02] MEDS: PIPERACILLIN/TAZOBACTAM 3,375 MG in SODIUM CHLORIDE 0.9% 100 ML IV SCH ×2 (11:52→21:43)
[2016-10-02] MEDS: ACETYLCYSTEINE 20% 800 MG/4 ML VIAL RESP TX SCH ×2 (14:12→19:43)
[2016-10-02] MEDS ORDERED: DIGOXIN 0.5 MG/2 ML AMP IV ONE (17:03)
[2016-10-02] MEDS ORDERED: DILTIAZEM 50 MG/10 ML VIAL IV ONE (17:05)
[2016-10-02] MEDS ORDERED: AMIODARONE INJ 150 MG in DEXTROSE 5% 100 ML IV ONE (17:05)
[2016-10-02] MEDS ORDERED: ALBUTEROL 2.5 MG/3 ML NEB RESP TX PRN (17:07)
[2016-10-02] MEDS ORDERED: AMIODARONE INJ 450 MG in DEXTROSE 5% 241 ML IV SCH ×2 (17:30→23:30)
[2016-10-02] MEDS: CALCIUM ACETATE 667 MG CAPSULE PO SCH (17:35)
[2016-10-02 18:40] LABS: Albumin 2.7 G/DL (3.4-5.0); Magnesium 2.9 MG/DL (1.8-2.4); Osmolality,Calculated 320.5 MOS/KG (273-304); Phosphorous 5.5 MG/DL (2.5-4.9); Potassium 3.6 MMOL/L (3.5-5.1)
[2016-10-02 18:42] LABS: Troponin I Only 0.088 NG/ML (0.00-0.045)
[2016-10-02] MEDS ORDERED: ACETYLCYSTEINE 20% 800 MG/4 ML VIAL RESP TX SCH (19:00)
[2016-10-02 19:02] LABS: Free T4 (Free Thyroxine) 1.1 NG/DL (0.76-1.46); Thyroid Stimulating Hormone 1.13 uIU/ml (0.358-3.74)
[2016-10-02] MEDS: ALBUTEROL 2.5 MG/3 ML NEB RESP TX SCH (19:40)
[2016-10-02] MEDS: LEVOFLOXACIN INJ 500 MG in PREMIX 1 EACH IV SCH (20:30)
[2016-10-02] MEDS: ENOXAPARIN 30 MG/0.3 ML SYRINGE SUBCUT SCH (20:30)
[2016-10-02] MEDS: ASPIRIN CHEW 81 MG TABLET PO SCH (20:30)
[2016-10-02] MEDS: INSULIN GLARGINE 100 UNIT/ML SUBCUT SCH (20:30)
[2016-10-02] MEDS: LABETALOL 20 MG/4 ML SYRINGE IV PRN (21:52)
[2016-10-03] MEDS: INSULIN REGULAR 100 UNIT/ML SUBCUT SCH ×5 (00:03→23:39)
[2016-10-03] MEDS: ACETYLCYSTEINE 20% 800 MG/4 ML VIAL RESP TX SCH ×4 (00:24→19:14)
[2016-10-03] MEDS: ALBUTEROL 2.5 MG/3 ML NEB RESP TX SCH ×4 (00:24→19:14)
[2016-10-03] MEDS: LABETALOL 20 MG/4 ML SYRINGE IV PRN (02:01)
[2016-10-03] MEDS: hydrALAZINE 20 MG/1 ML VIAL IV PRN ×2 (03:30→13:23)
[2016-10-03] MEDS: cloNIDine 0.1 MG TABLET PO SCH ×2 (03:51→08:42)
[2016-10-03 05:48] LABS: Calcium 7.7 MG/DL (8.5-10.1); Osmolality,Calculated 318.5 MOS/KG (273-304); Potassium 2.9 MMOL/L (3.5-5.1)
[2016-10-03] MEDS: POTASSIUM CHLORIDE RIDER 10 MEQ in PREMIX 1 EACH IV PRN ×5 (06:06→15:16)
--- NOTE | 2016-10-03 06:07 | EKG Report ---
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
--- NOTE | 2016-10-03 07:57 | Hospitalist Progress Note ---
Hospitalist: Subjective Interval history: Patient went into A. fib with RVR overnight and was placed on amiodarone drip. He is converted back to sinus rhythm at this time. He is more awake and alert today and is trying to communicate. 2 bowel movements recorded yesterday per nursing. Exam - Constitutional Vitals: Period Temp Pulse Resp BP Sys/Crespo Pulse Ox Last 24 Hr 97.9 F-98.8 F 86-201 10-96 85-202/62-88 92-100 Exam: Awake, alert and trying to communicate and follow commands, chronically ill appearing RRR no M Diminished lung sounds on the right with much diminished lung sounds on the left , nonlabored, diminished at the bases Soft, distended, hypoactive bowel sounds, NTTP Warm no c/c/e. Abrasions on dorsal surface of left foot Results - Labs CBC & BMP: 10/01/16 06:29 10/03/16 05:03 - Impressions (1) Acute renal failure on suspected CKD 4- improving Status: Acute Current Visit: Yes - Adjust IVF - Holding Valsartan - s/p Tian's cocktail and Kayexalate x 2 - telemetry - serial labs - nephrology following (2) Hyperkalemia- resolved now with hypokalemia Status: Acute Current Visit: Yes - Holding Valsartan - s/p Tian's cocktail and Kayexalate x 2. - s/p calcium for myocardial stabilization - telemetry -Replace potassium per protocol (3) Afib with RVR with elevated troponin - rate controlled on amiodarone. Continue drip for now. correct lytes. Cards to see. TSH normal (4) History of multiple strokes s/p dysphagia on tubefeeds and expressive aphasia Status: Chronic Current Visit: Yes - Tubefeeds per nutrition recs (4) Suspected aspiration pneumonia Status: Acute Current Visit: Yes - Cont IV antibiotics, bronchodilators (changed to Xopenex), pulm toileting with IPPB. CXR done and per report showed improvement in the left upper lobe but I cannot auscultate any lung sounds there. Images not available to review. Pulm following. Cont mucomyst. - F/U Blood cultures and sputum cultures. - Cont mucinex (5) Anemia, chronic disease due to chronic kidney disease and pt is a Jehovah Witness Status: Acute Current Visit: Yes - iron supplementation. no transfusion due to jewish beliefs - has received Epo and Iron in the past. Will defer to nephrology for any additional treatment (6) Chronic diastolic congestive heart failure with preserved EF 60% by last ECHO Status: Acute Current Visit: Yes -Currently compensated. Monitor I's and O's (7) History of abdominal aortic aneurysm (AAA) Status: Acute Current Visit: Yes -Patient and family have declined surgical intervention in the past. monitor (8) Hyponatremia due to renal failure- resolved Status: Acute Current Visit: Yes -Likely due to renal failure. Monitor. (9) Diabetes mellitus- uncontrolled Status: Chronic Current Visit: No Qualifiers: Diabetes mellitus type: type 2 Diabetes mellitus complication detail: with other kidney complication -Insulin sliding scale. Accu-Cheks every 6. Schedule Long acting insulin (10) Essential Hypertension- controlled - Cont clonidine to 0.1mg per tube TID. Continue coreg 25 bid, norvasc 5mg daily , isordil 40mg tid. Current Visit: yes Qualifiers: Hypertension type: essential hypertension Qualified Code(s): I10 - Essential (primary) hypertension (11) Hypocalcemia - replace DVT prophylaxis-Lovenox Attempted to update sister again at [phone] (Rosalia).
--- NOTE | 2016-10-03 08:10 | XRay Report ---
XR chest 1V portable Indication: Shortness of breath Comparison: Chest x-ray dated September 30, 2016 Technique: Single frontal view of the chest. Findings: Heart remains obscured. Interval improved left upper lung consolidation. Worsened diffuse right lung consolidation. Continued left lower lung consolidation. Visualized osseous and surrounding soft tissue structures appear grossly unchanged. IMPRESSION: No significant interval change. PROCEDURE INTERPRETED AT [facility] DEPARTMENT OF RADIOLOGY Final Report Signed by: Dr Nabor Montano
--- NOTE | 2016-10-03 08:22 | Pulmonology Progress Note ---
Pulmonary - PN: Subj Interval history: Patient is a 61-year-old white man that is very debilitated. 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 He has chronic renal failure with anemia chronic disease and does not want blood because the family is Mandaen. He now has congestive heart failure and possible pneumonia. He cannot clear secretions very well at all. He did diurese a little yesterday. The patient had a fairly good night and is breathing comfortably. He will respond a little. He has fairly good urine output and his renal function has improved. His chest x-ray looks much better today. The left lung looks much clear. He is comfortable on facemask oxygen. Exam (Progress Note) - Constitutional Vitals: Period Temp Pulse Resp BP Sys/Crespo Pulse Ox Last 24 Hr 97.9 F-98.8 F 86-201 10-96 85-202/62-88 92-100 Exam: General appearance: the patient is comfortable on facemask oxygen and does respond a little. He does not appear to be in any distress now. - Head Head exam: Present: normal inspection, normocephalic - Eye Eye exam: Present: EOMI. Absent: scleral icterus Pupils: Present: JOVANY - ENT ENT exam: Present: other (He has better coloring.) - Neck Neck exam: Present: normal inspection. Absent: lymphadenopathy, thyromegaly - Respiratory Respiratory exam: Present: He has equal breath sounds bilaterally but he does have bilateral rhonchi and rales. He still has a very poor cough. He does seem to be moving air a little better. - Cardiovascular Cardiovascular exam: Present: regular rate and rhythm, systolic murmur (He does have a soft murmur). Absent: gallop - GI/Abdominal GI/Abdominal exam: Present: hypoactive bowel sounds, soft. Absent: organomegaly , tenderness - Extremities Exam Extremities exam: Present: other (Multiple toe amputations). Absent: calf tenderness, edema - Neurological Exam Neurological exam: Present: other (He is responding some but cannot communicate. He looks like he is close to baseline.) - Psychiatric Psychiatric exam: Absent: anxious - Skin Skin exam: Present: warm, pallor Results - Labs CBC & BMP: 10/01/16 06:29 10/03/16 05:03 - Diagnostic Findings Procedure: Chest x-ray: image reviewed by me, report reviewed by me (Chest x- ray is better with improvement in the left lung infiltrate. There is still considerable changes in the right lung.) Assessment and Plan (1) History of multiple strokes Status: Chronic Assessment and plan: The patient has had multiple strokes and is bedridden. He is extremely debilitated. His neurological status is about at baseline. Current Visit: No (2) Dementia Status: Acute Assessment and plan: Patient will arouse but is not very alert. He does not communicate very well. He may be close to baseline. Current Visit: No (3) Diabetes mellitus Status: Chronic Assessment and plan: His glucoses will be monitored. His glucose was 323 this morning. Current Visit: No Qualifiers: Diabetes mellitus type: type 2 Diabetes mellitus complication detail: with other kidney complication (4) Hyperkalemia Status: Acute Assessment and plan: The patient has gotten some treatment for his high potassium and now his potassium is down to 2.9. Current Visit: No (5) Leg ulcer Status: Acute Assessment and plan: The patient has had bilateral leg ulcers. Current Visit: No (6) CKD stage 4 due to type 2 diabetes mellitus Problem details: No indication for renal replacement therapy. Pt is not a good chronic dialysis candidate due to comorbidities. Status: Acute Assessment and plan: The patient has chronic renal failure and his creatinine is down to 3.4 today. Current Visit: No (7) Chronic respiratory failure Status: Acute Assessment and plan: The patient likely has aspiration pneumonia and chronic respiratory problems. He has very poor pulmonary toilet. He is getting antibiotics for pneumonia. Some of this is probably volume overload. He looks like he is breathing better and his chest x-ray has improved. Current Visit: Yes (8) Anemia, chronic disease Status: Acute Assessment and plan: The patient has chronic anemia with a hemoglobin of 7.3 Current Visit: Yes (9) Congestive heart failure Status: Acute Assessment and plan: Patient's chest x-ray looks like pulmonary edema. He did diurese him yesterday. His chest x-ray is better and his oxygenation is stable. He probably does have a component of heart failure that is better. Current Visit: Yes
[2016-10-03] MEDS: CALCIUM ACETATE 667 MG CAPSULE PO SCH (08:41)
[2016-10-03] MEDS: FOLIC ACID 0.4 MG TABLET PO SCH ×2 (08:42→21:19)
[2016-10-03] MEDS: CYANOCOBALAMIN 500 MCG TABLET PO SCH ×2 (08:42→21:19)
[2016-10-03] MEDS: PANTOPRAZOLE 40 MG TABLET PO SCH (08:42)
[2016-10-03] MEDS: ISOSORBIDE MONONITRATE 30 MG TABLET PO SCH (08:42)
[2016-10-03] MEDS: TAMSULOSIN 0.4 MG CAPSULE PO SCH (08:42)
[2016-10-03] MEDS: FINASTERIDE 5 MG TABLET PO SCH (08:42)
[2016-10-03] MEDS: METOPROLOL TARTRATE 50 MG TABLET PO SCH (08:42)
[2016-10-03] MEDS: SERTRALINE 25 MG TABLET PO SCH (08:42)
[2016-10-03] MEDS: DESITIN 4OZ/NYSTATIN 15 GRAM MIXTURE PASTE TOP SCH ×2 (08:43→21:20)
[2016-10-03] MEDS: SODIUM CHLORIDE 0.45% 1,000 ML IV SCH ×2 (08:47→21:50)
[2016-10-03] MEDS: BACITRACIN OINT 0.9 GM PACK TOP SCH (08:48)
--- NOTE | 2016-10-03 09:54 | Nephrology Progress Note ---
Nephrology - PN: Subj Interval history: Creatinine improved to 3.0. K low at 2.9, being replaced with 50meq IV. Will add 40mg x 1 after NGT placed. Feeding tube pulled out. Exam (PN)-Nephrology - Vital Signs Vital signs: Period Temp Pulse Resp BP Sys/Crespo Pulse Ox Last 24 Hr 97.9 F-98.8 F 86-201 10-96 85-202/62-88 92-100 - General Appearance General appearance: obese, chronically ill EENT: ATNC, PERRL, mucous membranes moist, hearing intact Neck: no JVD, no thyromegaly Respiratory: no kyphosis, clear Cardiology: no murmurs, no rub Gastrointestinal: normoactive bowel sounds, no tenderness Integumentary: no rash, warm and dry Neurologic: no asterixis, aphasic Musculoskeletal: no deformities, no erythema - Lab 10/01/16 06:29 10/03/16 05:03 Most recent lab results ABG pH 7.347 (7.35-7.45) L 09/30/16 19:14 ABG pCO2 42.0 MM HG (35-48) 09/30/16 19:14 ABG pO2 60.2 MM HG (80-95) L 09/30/16 19:14 ABG HCO3 22.5 MMOL/L (20-26) 09/30/16 19:14 ABG O2 Saturation 87.3 % (95-100) L 09/30/16 19:14 Calcium 7.7 MG/DL (8.5-10.1) L 10/03/16 05:03 Phosphorus 5.5 MG/DL (2.5-4.9) H 10/02/16 17:43 Magnesium 2.9 MG/DL (1.8-2.4) H 10/02/16 17:43 Assessment and Plan (1) Hyperkalemia Problem details: No indication for dialysis. Not a chronic dialysis candidate due to comorbidities/dementia. Status: Acute Assessment and plan: Avoid ACEI/ARB therapy in the future. See recommended antihypertensive regimen. Current Visit: Yes (2) Hyponatremia Status: Acute Current Visit: Yes (3) Sequela of cerebrovascular accident Status: Acute Current Visit: Yes (4) BPH (benign prostatic hyperplasia) Status: Acute Current Visit: No (5) CKD stage 4 due to type 2 diabetes mellitus Problem details: No indication for renal replacement therapy. Pt is not a good chronic dialysis candidate due to comorbidities. Status: Acute Current Visit : No (6) Dementia Status: Acute Current Visit: No
[2016-10-03] MEDS ORDERED: NITROGLYCERIN 0.1 MG/HR PATCH TRANSDERM SCH (10:30)
[2016-10-03] MEDS: cloNIDine 0.2 MG/24 HR PATCH TRANSDERM SCH (10:59)
[2016-10-03] MEDS: PIPERACILLIN/TAZOBACTAM 3,375 MG in SODIUM CHLORIDE 0.9% 100 ML IV SCH ×2 (10:59→21:21)
--- NOTE | 2016-10-03 12:25 | Cardiology Consult Note ---
Assessment and Plan - Time spent with patient Time spent with patient: Greater than 30 minutes (1) Patient is Muslim Status: Chronic Assessment and plan: SEE PLAN OF CARE LISTED BELOW Current Visit: Yes (2) Atrial fibrillation with RVR Status: Resolved Assessment and plan: SEE PLAN OF CARE LISTED BELOW Current Visit: Yes (3) Anemia Status: Chronic Assessment and plan: SEE PLAN OF CARE LISTED BELOW Current Visit: No Qualifiers: Anemia type: iron deficiency (4) Pneumonia Status: Acute Assessment and plan: SEE PLAN OF CARE LISTED BELOW Current Visit: No Qualifiers: Pneumonia type: aspiration pneumonia Aspiration pneumonia type: due to gastric secretions Laterality: unspecified laterality Lung location: unspecified part of lung Qualified Code(s): J69.0 - Pneumonitis due to inhalation of food and vomit (5) Bedbound patient Status: Chronic Assessment and plan: SEE PLAN OF CARE LISTED BELOW Current Visit: No (6) History of multiple strokes Status: Chronic Assessment and plan: SEE PLAN OF CARE LISTED BELOW Current Visit: No (7) Hypertension Problem details: Increase clonidine to 0.1mg per tube TID. Continue coreg 25 bid , norvasc 5mg daily, change lasix to 80mg bid via tube, isordil 40mg tid. This should be his discharge antihypertensive regimen. Status: Chronic Current Visit: No Qualifiers: Hypertension type: essential hypertension Qualified Code(s): I10 - Essential (primary) hypertension (8) Neuropathy Status: Chronic Assessment and plan: SEE PLAN OF CARE LISTED BELOW Current Visit: No (9) Dementia Status: Chronic Assessment and plan: SEE PLAN OF CARE LISTED BELOW Current Visit: No (10) Diabetes mellitus Status: Chronic Assessment and plan: SEE PLAN OF CARE LISTED BELOW Current Visit: No Qualifiers: Diabetes mellitus type: type 2 Diabetes mellitus complication detail: with other kidney complication (11) Chronic kidney disease, stage III (moderate) Status: Chronic Assessment and plan: SEE PLAN OF CARE LISTED BELOW Current Visit: No (12) History of abdominal aortic aneurysm Status: Chronic Assessment and plan: SEE PLAN OF CARE LISTED BELOW Current Visit: No (13) Anemia Status: Acute Current Visit: No (14) Community acquired pneumonia Status: Acute Assessment and plan: SEE PLAN OF CARE LISTED BELOW Current Visit: Yes History of Present Illness - Data of Consult Patient: new to practice Consult date: 10/03/16 Requesting Physician: Judy Phipps - Consult Narrative Reason for consult: Atrial fibrillation with RVR 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 He is demented and does not respond to my questions. Therefore, the majority of this information is taken from medical records and staff. Mr. Kim, 61WM, looks older than his stated age. To my knowledge, he has never been followed by cardiology. Risk factors include: hypertension, diabetes , CVA, sedentary lifestyle. History of severe dementia, chronic kidney disease with anemia, leg ulcers and numerous hospitalizations recently for pneumonia. He is a Muslim. Presented to the emergency department at [facility] September 30, 2016 with decreased oxygen saturations , reportedly in the 70s. He was diagnosed with recurrent pneumonia and placed in our CCU. He has been treated with appropriate antibiotics. Pulmonology has been consulted as well. He is a full code. Yesterday, patient began to experience atrial fibrillation with rapid ventricular response with sustained heart rates as high as 170bpm. To my knowledge, this is new onset. IV Amiodarone was initiated and at this time he is in normal sinus rhythm. Troponin peaked at 2.16. EKG revealed ST depression during the atrial fibrillation with RVR. I do not have an EKG one form this morning when he is in normal sinus rhythm. Of note, creatinine is elevated at 3.4. Chest x-ray revealed pneumonia versus possible pulmonary edema. Overnight, however, this is markedly improved. Echocardiogram September 17, 2016 reveals EF 60%, grade 2 diastolic dysfunction, no significant valvular abnormality. PAP 45 mmHg. At this time, he remains on IV Amiodarone and will complete the protocol then transition to oral Amiodarone. Blood pressure is uncontrolled and I will increase his beta-luis daniel for better control. Fasting lipid profile in the morning. Add lipid-lowering agent this evening. Continue with oral aspirin daily. Because his rhythm has returned to NSR, and because he will not take blood products, we will avoid anticoagulation and continue ASA only. Also, will avoid invasive workup such as cardiac catheterization given the patient's multiple comorbidities including bedridden state with severe dementia. Will further discuss with Dr. Velazquez and await additional recommendations. ASSESSMENT/PLAN: 1. ATRIAL FIBRILLATION WITH RVR - currently normal sinus rhythm. See plan listed above. Will transition to oral amiodarone 2. ELEVATED TROPONIN - may be related to the rapid ventricular response. Continue aspirin. Not a candidate for invasive workup. 3. HYPERTENSION - suboptimally controlled. Increasing beta-luis daniel. 4. HISTORY CVA - continue current plan of care. Adding lipid-lowering agent. 5. DEBILITATED STATE - chronically debilitated with right hand contracture, PEG tube, multiple amputations, dementia. Continue current plan of care 6. SEVERE DEMENTIA - continue current plan of care 7. CHRONIC RENAL FAILURE, STAGE III -avoiding CARLOS inhibitors for fear of worsening renal insufficiency. 8. HYPOKALEMIA - will add potassium replacement protocol and monitor accordingly. 9. DIABETES - continue current plan of care 10. PNEUMONIA - on appropriate antibiotic therapy. 11. ANEMIA - we will check a CBC today. Muslim and therefore not a candidate for blood products. 12. JEHOVA'S WITNESS - NO BLOOD PRODUCTS CC: Judy Phipps MD - Home Medications and Allergies Home Medications: Home Medications Medication Instructions Recorded Confirmed Type Aspirin EC Tab 81 mg PO QPM 08/06/16 09/05/16 History Ferrous Sulfate 325 mg PO BID 08/06/16 09/05/16 History Finasteride 5 mg PO DAILY 08/06/16 09/05/16 History Isosorbide Mononitrate [Imdur] 30 mg PO DAILY 08/06/16 09/05/16 History Methocarbamol 500 mg PO BID PRN 08/06/16 09/05/16 History Metoprolol Tartrate 50 mg PO TID 08/06/16 09/05/16 History Pregabalin [Lyrica] 225 mg PO BID 08/06/16 09/05/16 History Sertraline [Zoloft] 25 mg PO DAILY 08/06/16 09/05/16 History Tamsulosin [Flomax] 0.4 mg PO DAILY 08/06/16 09/05/16 History Valsartan 80 mg PO QID 08/06/16 09/05/16 History cloNIDine TAB [Catapres Tab] 0.1 mg PO Q4H 08/06/16 09/05/16 History Pantoprazole Tab [Protonix Tab] 40 mg PO DAILY 09/05/16 09/05/16 History Simvastatin 20 mg PO BEDTIME 09/05/16 09/05/16 History Acetaminophen Tab [Tylenol Tab] 325 mg PO Q4H PRN tablet 09/23/16 Rx Albuterol/Ipratropium Neb [Duoneb] 3 ml RESP TX RT Q4H #120 vial 09/23/16 Rx Cyanocobalamin Tab [Vitamin B12 500 mcg PO BID #60 tablet 09/23/16 Rx Tab] Folic Acid Tab 0.4 mg PO BID #60 tablet 09/23/16 Rx Insulin Glargine [Lantus] 15 unit SUBCUT BEDTIME #1 packet 09/23/16 Rx Acetaminophen Tab [Tylenol Tab] 325 mg PO Q4H PRN 09/30/16 09/30/16 History Albuterol/Ipratropium Neb [Duoneb] 3 ml RESP TX RT Q4H 09/30/16 09/30/16 History Aspirin EC Tab 81 mg PO QPM 09/30/16 09/30/16 History Cyanocobalamin Tab [Vitamin B12 500 mcg PO BID 09/30/16 09/30/16 History Tab] Ferrous Sulfate Tab [Feosol 325 mg PO BID 09/30/16 09/30/16 History Original Tab] Finasteride [Proscar] 5 mg PO DAILY 09/30/16 09/30/16 History Folic Acid Tab 0.4 mg PO BID 09/30/16 09/30/16 History Insulin Glargine [Lantus] 15 unit SUBCUT BEDTIME 09/30/16 09/30/16 History Isosorbide Mononitrate [Imdur] 30 mg PO DAILY 09/30/16 09/30/16 History Methocarbamol Tab [Robaxin Tab] 500 mg PO BID PRN 09/30/16 09/30/16 History Metoprolol Tartrate Tab [Lopressor 50 mg PO TID 09/30/16 09/30/16 History Tab] Pantoprazole Tab [Protonix Tab] 40 mg PO DAILY 09/30/16 09/30/16 History Pregabalin [Lyrica] 225 mg PO BID 09/30/16 09/30/16 History Sertraline [Zoloft] 25 mg PO DAILY 09/30/16 09/30/16 History Simvastatin 20 mg PO QPM 09/30/16 09/30/16 History Tamsulosin [Flomax] 0.4 mg PO DAILY 09/30/16 09/30/16 History Valsartan 80 mg PO QID 09/30/16 09/30/16 History cloNIDine TAB [Catapres Tab] 0.1 mg PO Q4H 09/30/16 09/30/16 History Allergies/Adverse Reactions: Allergies Allergy/AdvReac Type Severity Reaction Status Date / Time No Known Allergies Allergy Verified 09/05/16 15:45 ROS unobtainable: due to mental status Medical,Surgical,& Family Hx - Medical History Cardio: History of: Aneurysm, Hypertension No history of: CAD, [place] Psychological: History of: Anxiety Disorders, Depression Neurology: History of: Cerebral Hemorrhage, Cerebrovascular Accident Endocrine: History of: Diabetes Mellitus (NIDDM) Rheumatology: History of;: Rheumatoid Arthritis Respiratory: History of: Pneumonia Renal: History of: Renal Problems (decreased kidney function) Genitourinary: History of: Prostate Problems Gastrointestinal: History of: GERD, GI Problems (triple a) Hematology: History of: Anemia - Surgical History Neurologic Surgeries: Surgical HX of: Cerebral Hemorrhage - Family History Family History: Reports;: Family Diabetes, Family Heart Disease, Family Hypertension - Social History Smoking Status: Never smoker Frequency of Alcohol Use: None Type of Drug Use: None Physical Examination Vital Signs Temp Pulse Resp BP Pulse Ox 98.2 F 83 18 173/67 85 L 09/30/16 18:36 09/30/16 18:36 09/30/16 18:36 09/30/16 18:36 09/30/16 18:36 General: [61-year-old male who looks older than his stated age. He does not obey commands, wake or respond to my voice. Does respond to aggressive tactile stimuli and return to sleep immediately. Wearing facemask at this point. HEENT: [normocephalic, atraumatic. Mucous membranes moist. No jaundice noted. Conjunctiva moist and clear, sclerae anicteric] Neck: No obvious JVD/HJR, no thyromegaly or lymphadenopathy noted. No carotid bruit appreciated Cardiac: [Regular rate and rhythm.] [No murmur rub or gallop.] Lungs: [Rhonchi noted throughout. No Accessory muscle use to assist the respiratory pattern.] Wearing facemask appear Abdomen: Soft, bowel sounds normoactive. Nontender and nondistended. PEG intact no abdominal bruit or thrill noted. No masses noted. Musculoskeletal: No fluid collection. Decreased range of motion is noted. Extremities: No clubbing, cyanosis noted. [Trace bilateral lower extremity edema. TEDs and boots to lower extremities.] Upper extremity pulses 2+. Difficult to palpate lower extremity pulses but warm to touch multiple amputation of toes Neuro: Sleeping and difficult to arouse. Right hand contracture noted. No essential tremor is appreciated. Result/EKG - Labs CBC & BMP: 10/01/16 06:29 10/03/16 05:03 Lab Results: I have reviewed the past 24 hour labs Labs: Laboratory Results - last 24 hr 10/02/16 10/02/16 10/02/16 15:59 17:43 17:43 Sodium Potassium Chloride Carbon Dioxide Anion Gap BUN Creatinine GFR Calculation BUN/Creatinine Ratio Glucose POC Glucose 285 H Calculated Osmolality Calcium Phosphorus Magnesium Total Creatine Kinase 33 L CK-MB (CK-2) 1.0 Troponin I 0.088 H D Albumin Free T4 1.10 TSH 3rd Generation 1.130 10/02/16 10/02/16 10/02/16 17:43 22:53 23:30 Sodium 139 Potassium 3.6 Chloride 93 L Carbon Dioxide 33 H Anion Gap 16.6 H BUN 107 H Creatinine 3.80 H GFR Calculation 18 BUN/Creatinine Ratio 28.00 H Glucose 276 H POC Glucose 387 H Calculated Osmolality 320.5 H Calcium 8.0 L Phosphorus 5.5 H Magnesium 2.9 H Total Creatine Kinase 63 D CK-MB (CK-2) 3.9 H Troponin I 1.810 H D Albumin 2.7 L Free T4 TSH 3rd Generation 10/03/16 10/03/16 10/03/16 05:03 05:03 06:10 Sodium 139 Potassium 2.9 L Chloride 91 L Carbon Dioxide 36 H Anion Gap 14.9 BUN 104 H Creatinine 3.40 H GFR Calculation 21 BUN/Creatinine Ratio 30.00 H Glucose 264 H POC Glucose 323 H Calculated Osmolality 318.5 H Calcium 7.7 L Phosphorus Magnesium Total Creatine Kinase 49 D CK-MB (CK-2) 3.0 Troponin I 2.160 H Albumin Free T4 TSH 3rd Generation - Diagnostic Findings Procedure: Chest x-ray: report reviewed by me - EKG EKG results: interpreted by me EKG shows: sinus rhythm, atrial fibrillation
--- NOTE | 2016-10-03 12:59 | Gastrointestinal Consult Note ---
Assessment and Plan (1) PEG tube malfunction Status: Acute Assessment and plan: 10/03-history of PEG placement at outside facility now noted to be leaking and upon further assessment found to be dislodged. Welsh catheter currently in place. Patient for PEG replacement today. Plan an addendum to follow Dr. Leo. Current Visit: Yes History of Present Illness Chief complaint: Dislodged PEG History of present illness: Mr. Kmi is a 61 year old male who was admitted to the hospital on 09/30 with decreased oxygen saturation from outside facility. Patient is unable provide any information obtained from chart review. Patient reportedly has a history of multiple strokes, aneurysm, chronic anemia, chronic kidney disease, and multiple hospitalizations for pneumonia. He is cared for at home by his sister and states he was doing well until the last week when he began to have increasing shortness of breath. He was found to have saturations in the 70s and was brought to our facility after being evaluated at [place]. Patient is a [employer] and no blood transfusions are allowed. He was found on admission to have atrial fib with RVR, elevated troponins, and pneumonia which is currently being treated for. He also has hypokalemia which repletion is in progress. Patient is also a known diabetic. patient was reportedly inpatient in [place] recently and during this time had a PEG tube placed. No documentation available at this time regarding date of placement however is noted it was done before July of this year. Today while nurse was caring for the patient. She noted the PEG tube seemed to be leaking. Upon further evaluation she found that the PEG tube had been dislodged completely from the abdomen. She has placed a Welsh catheter at this time to maintain the site. He is also currently on Lovenox injections at this time Home Medications Medication Instructions Recorded Confirmed Type Aspirin EC Tab 81 mg PO QPM 08/06/16 09/05/16 History Ferrous Sulfate 325 mg PO BID 08/06/16 09/05/16 History Finasteride 5 mg PO DAILY 08/06/16 09/05/16 History Isosorbide Mononitrate [Imdur] 30 mg PO DAILY 08/06/16 09/05/16 History Methocarbamol 500 mg PO BID PRN 08/06/16 09/05/16 History Metoprolol Tartrate 50 mg PO TID 08/06/16 09/05/16 History Pregabalin [Lyrica] 225 mg PO BID 08/06/16 09/05/16 History Sertraline [Zoloft] 25 mg PO DAILY 08/06/16 09/05/16 History Tamsulosin [Flomax] 0.4 mg PO DAILY 08/06/16 09/05/16 History Valsartan 80 mg PO QID 08/06/16 09/05/16 History cloNIDine TAB [Catapres Tab] 0.1 mg PO Q4H 08/06/16 09/05/16 History Pantoprazole Tab [Protonix Tab] 40 mg PO DAILY 09/05/16 09/05/16 History Simvastatin 20 mg PO BEDTIME 09/05/16 09/05/16 History Acetaminophen Tab [Tylenol Tab] 325 mg PO Q4H PRN tablet 09/23/16 Rx Albuterol/Ipratropium Neb [Duoneb] 3 ml RESP TX RT Q4H #120 vial 09/23/16 Rx Cyanocobalamin Tab [Vitamin B12 500 mcg PO BID #60 tablet 09/23/16 Rx Tab] Folic Acid Tab 0.4 mg PO BID #60 tablet 09/23/16 Rx Insulin Glargine [Lantus] 15 unit SUBCUT BEDTIME #1 packet 09/23/16 Rx Acetaminophen Tab [Tylenol Tab] 325 mg PO Q4H PRN 09/30/16 09/30/16 History Albuterol/Ipratropium Neb [Duoneb] 3 ml RESP TX RT Q4H 09/30/16 09/30/16 History Aspirin EC Tab 81 mg PO QPM 09/30/16 09/30/16 History Cyanocobalamin Tab [Vitamin B12 500 mcg PO BID 09/30/16 09/30/16 History Tab] Ferrous Sulfate Tab [Feosol 325 mg PO BID 09/30/16 09/30/16 History Original Tab] Finasteride [Proscar] 5 mg PO DAILY 09/30/16 09/30/16 History Folic Acid Tab 0.4 mg PO BID 09/30/16 09/30/16 History Insulin Glargine [Lantus] 15 unit SUBCUT BEDTIME 09/30/16 09/30/16 History Isosorbide Mononitrate [Imdur] 30 mg PO DAILY 09/30/16 09/30/16 History Methocarbamol Tab [Robaxin Tab] 500 mg PO BID PRN 09/30/16 09/30/16 History Metoprolol Tartrate Tab [Lopressor 50 mg PO TID 09/30/16 09/30/16 History Tab] Pantoprazole Tab [Protonix Tab] 40 mg PO DAILY 09/30/16 09/30/16 History Pregabalin [Lyrica] 225 mg PO BID 09/30/16 09/30/16 History Sertraline [Zoloft] 25 mg PO DAILY 09/30/16 09/30/16 History Simvastatin 20 mg PO QPM 09/30/16 09/30/16 History Tamsulosin [Flomax] 0.4 mg PO DAILY 09/30/16 09/30/16 History Valsartan 80 mg PO QID 09/30/16 09/30/16 History cloNIDine TAB [Catapres Tab] 0.1 mg PO Q4H 09/30/16 09/30/16 History Allergies Allergy/AdvReac Type Severity Reaction Status Date / Time No Known Allergies Allergy Verified 09/05/16 15:45 Medical,Surgical,& Family Hx - Medical History Cardio: History of: Aneurysm, Hypertension No history of: CAD, [place] Psychological: History of: Anxiety Disorders, Depression Neurology: History of: Cerebral Hemorrhage, Cerebrovascular Accident Endocrine: History of: Diabetes Mellitus (NIDDM) Rheumatology: History of;: Rheumatoid Arthritis Respiratory: History of: Pneumonia Renal: History of: Renal Problems (decreased kidney function) Genitourinary: History of: Prostate Problems Gastrointestinal: History of: GERD, GI Problems (triple a) Hematology: History of: Anemia - Surgical History Neurologic Surgeries: Surgical HX of: Cerebral Hemorrhage - Family History Family History: Reports;: Family Diabetes, Family Heart Disease, Family Hypertension - Social History Smoking Status: Never smoker Frequency of Alcohol Use: None Type of Drug Use: None ROS unobtainable: due to mental status Exam - Constitutional Vitals: Period Temp Pulse Resp BP Sys/Crespo Pulse Ox Last 24 Hr 97.9 F-98.8 F 86-201 10-96 85-202/62-82 92-100 General appearance: normal weight, no acute distress - Head Head exam: Present: normal inspection, normocephalic - Eye Eye exam: Present: other (Lids and conjunctive unremarkable). Absent: scleral icterus - ENT ENT exam: Present: normal exam, normal oropharynx - Neck Neck exam: Present: normal inspection - Respiratory Respiratory exam: Present: clear to auscultation bilaterally. Absent: rales, rhonchi, wheezes - Cardiovascular Cardiovascular exam: Present: regular rate and rhythm. Absent: diastolic murmur , JVD, systolic murmur - GI/Abdominal GI/Abdominal exam: Present: normal bowel sounds, soft. Absent: ascites, distended, mass, organomegaly, tenderness - Extremities Exam Extremities exam: Present: normal inspection, full ROM - Back Exam Back exam: Present: normal inspection - Neurological Exam Neurological exam: Present: alert, altered - Psychiatric Psychiatric exam: Present: other - Skin Skin exam: Present: normal color, warm, dry Results - Labs CBC & BMP: 10/01/16 06:29 10/03/16 05:03 Lab Results: I have reviewed the past 24 hour labs
[2016-10-03] MEDS: METOPROLOL TARTRATE 5 MG/5 ML VIAL IV SCH ×3 (13:22→23:38)
[2016-10-03] MEDS: DILTIAZEM 30 MG TABLET PO SCH ×3 (13:22→21:20)
[2016-10-03] MEDS: AMIODARONE 200 MG TABLET PO SCH ×2 (13:23→21:20)
[2016-10-03] MEDS: POTASSIUM CHLORIDE 20 MEQ/15 ML UDCUP PER TUBE PRN ×2 (16:24→16:25)
--- NOTE | 2016-10-03 16:33 | History and Physical Update ---
History and Physical Update - Physical Exam Mental Status: other (Awake and alert) Heart: regular rate and rhythm Lung: other (Rhonchi) Abdomen: other (Abdomen soft and nondistended, PEG site clear without discharge) Vitals: within normal limits
--- NOTE | 2016-10-03 16:36 | Operative Note ---
Date of procedure: 10/03/16 Pre-op diagnosis: PEG tube dislodged Procedure: Procedure: Non-endoscopic PEG tube replacement Brief clinical abstract: Patient is a 61-year-old male with multiple previous CVAs who is admitted with pneumonia and hypoxia. His PEG tube inadvertently was pulled out this admission and replaced with a Welsh catheter through the gastrostomy site. We are asked to evaluate him for replacement of his feeding tube. Procedure findings: After informed consent was obtained, patient was placed in supine position. Welsh catheter internal balloon was deflated and was removed from the stomach. Then, Cook 20 Armenian replacement gastrostomy tube was inserted through the gastrostomy tract into the stomach. 20 cc of sterile saline was inflated into the internal balloon. Gastric juice was aspirated with syringe from the tube. A dressing was applied to the site afterwards. External bumper was then applied at the skin surface at the 3 cm jonny and secured there. He appeared to tolerate the procedure well. Recommendations: May resume tube feeding as previous. Call if needed. Anesthesia: none Surgeon / Physician: Cayetano Leo Estimated blood loss: none Specimens: none sent Condition: stable Disposition: no change Results - Labs CBC & BMP: 10/01/16 06:29 10/03/16 05:03 Discharge Plan - Discharge Medications No Action Sertraline [Zoloft] 25 mg PO DAILY Pregabalin [Lyrica] 225 mg PO BID Metoprolol Tartrate 50 mg PO TID Methocarbamol 500 mg PO BID PRN PRN Reason: Pain Tamsulosin [Flomax] 0.4 mg PO DAILY Finasteride 5 mg PO DAILY cloNIDine TAB [Catapres Tab] 0.1 mg PO Q4H Aspirin EC Tab 81 mg PO QPM Valsartan 80 mg PO QID Pantoprazole Tab [Protonix Tab] 40 mg PO DAILY Simvastatin 20 mg PO BEDTIME Albuterol/Ipratropium Neb [Duoneb] 3 ml RESP TX RT Q4H #120 vial Folic Acid Tab 0.4 mg PO BID #60 tablet Albuterol/Ipratropium Neb [Duoneb] 3 ml RESP TX RT Q4H cloNIDine TAB [Catapres Tab] 0.1 mg PO Q4H Cyanocobalamin Tab [Vitamin B12 Tab] 500 mcg PO BID Ferrous Sulfate Tab [Feosol Original Tab] 325 mg PO BID Finasteride [Proscar] 5 mg PO DAILY Folic Acid Tab 0.4 mg PO BID Isosorbide Mononitrate [Imdur] 30 mg PO DAILY Methocarbamol Tab [Robaxin Tab] 500 mg PO BID PRN PRN Reason: Pain Pantoprazole Tab [Protonix Tab] 40 mg PO DAILY Pregabalin [Lyrica] 225 mg PO BID Sertraline [Zoloft] 25 mg PO DAILY Simvastatin 20 mg PO QPM Valsartan 80 mg PO QID Isosorbide Mononitrate [Imdur] 30 mg PO DAILY Ferrous Sulfate 325 mg PO BID Acetaminophen Tab [Tylenol Tab] 325 mg PO Q4H PRN tablet PRN Reason: fever, headache/body aches Cyanocobalamin Tab [Vitamin B12 Tab] 500 mcg PO BID #60 tablet Insulin Glargine [Lantus] 15 unit SUBCUT BEDTIME #1 packet Acetaminophen Tab [Tylenol Tab] 325 mg PO Q4H PRN PRN Reason: Pain Aspirin EC Tab 81 mg PO QPM Insulin Glargine [Lantus] 15 unit SUBCUT BEDTIME Metoprolol Tartrate Tab [Lopressor Tab] 50 mg PO TID Tamsulosin [Flomax] 0.4 mg PO DAILY - Follow Up or Referral - Forms/Instructions
[2016-10-03] MEDS: ASPIRIN CHEW 81 MG TABLET PO SCH (21:19)
[2016-10-03] MEDS: INSULIN GLARGINE 100 UNIT/ML SUBCUT SCH (21:20)
[2016-10-03] MEDS: ENOXAPARIN 30 MG/0.3 ML SYRINGE SUBCUT SCH (21:21)
[2016-10-04] MEDS: ACETYLCYSTEINE 20% 800 MG/4 ML VIAL RESP TX SCH ×4 (00:21→20:34)
[2016-10-04] MEDS: ALBUTEROL 2.5 MG/3 ML NEB RESP TX SCH ×4 (00:21→20:34)
[2016-10-04 03:05] LABS: Basophils % 0.1 % (0.0-0.8); Eosinophils # 1.2 10*3/uL (0.0-0.87); Eosinophils % 13.7 % (0.00-10.9); Immature Granulocytes % 0.6 %; Immature Granulocytes Absolute 0.05 #; Lymphocytes # 0.5 10*3/uL (1.4-4.0); Mean Corpuscular HGB Conc 31.2 GM/DL (32-36); Mean Corpuscular Hemoglobin 31 PG (27-34); Mean Corpuscular Volume 98.3 FL (87-102); Mean Platelet Volume 12.9 FL (9.6-12.0); Monocytes # 0.2 10*3/uL (0.11-0.8); Monocytes % 2.1 % (1.7-12.7); Neutrophils % 78.5 % (38.7-73.9); Platelet Count 118 T/CUMM (130-400); Red Blood Count 1.73 MC/CUMM (3.8-5.5)
[2016-10-04 03:16] LABS: Hemoglobin 5.3 GM/DL (14.0-18.0)
[2016-10-04 03:32] LABS: Calcium 7.9 MG/DL (8.5-10.1); Magnesium 2.6 MG/DL (1.8-2.4); Osmolality,Calculated 306.8 MOS/KG (273-304); Potassium 4.3 MMOL/L (3.5-5.1)
[2016-10-04 03:34] LABS: Risk Ratio 4.48; VLDL CHOLESTEROL 66.8 MG/DL
[2016-10-04] MEDS: SODIUM CHLORIDE 0.45% 1,000 ML IV SCH ×2 (03:34→11:37)
[2016-10-04] MEDS: METOPROLOL TARTRATE 5 MG/5 ML VIAL IV SCH (05:13)
[2016-10-04] MEDS: INSULIN REGULAR 100 UNIT/ML SUBCUT SCH ×4 (05:19→23:31)
[2016-10-04 05:43] LABS: Band Neutrophils 1 % (0-10); Eosinophils 4 % (0-10); Lymphocytes 5 % (20-55); Segmented Neutrophils 90 % (50-85); Total Cells Counted 100
[2016-10-04 05:44] LABS: Anisocytosis 1+; Hypochromasia 1+; Platelet Estimate Adequate
[2016-10-04] MEDS: hydrALAZINE 20 MG/1 ML VIAL IV PRN (07:17)
--- NOTE | 2016-10-04 07:45 | Hospitalist Progress Note ---
Hospitalist: Subjective Interval history: PEG replaced yesterday. No fever. No nausea or vomiting. Tolerating tubefeeds. Speaking more today and more interactive. +BM yesterday Exam - Constitutional Vitals: Period Temp Pulse Resp BP Sys/Crespo Pulse Ox Last 24 Hr 97.4 F-98.3 F 83-104 13-20 142-186/58-85 95-100 Exam: Awake, alert and speaking and follow commands, chronically ill appearing RRR no M CTAB anteriorly, nonlabored, diminished at the bases Soft, distended, + bowel sounds, NTTP Warm no c/c/e. Abrasions on dorsal surface of left foot Results - Labs CBC & BMP: 10/04/16 02:46 10/04/16 02:46 - Impressions (1) Acute renal failure on suspected CKD 4- improving Status: Acute Current Visit: Yes - Cont IVF - Holding Valsartan - s/p Tian's cocktail and Kayexalate x 2 - telemetry - serial labs - nephrology following (2) Hyperkalemia- resolved now with hypokalemia Status: Acute Current Visit: Yes - Holding Valsartan - s/p Tian's cocktail and Kayexalate x 2. - s/p calcium for myocardial stabilization - telemetry -Replace potassium per protocol (3) Afib with RVR with elevated troponin - rate controlled on oral amiodarone, cardizem and metoprolol. Correct lytes. Cards following. TSH normal (4) History of multiple strokes s/p dysphagia on tubefeeds and expressive aphasia Status: Chronic Current Visit: Yes - Tubefeeds per nutrition recs (4) Suspected aspiration pneumonia Status: Acute Current Visit: Yes - Cont IV antibiotics, bronchodilators (changed to Xopenex), pulm toileting with IPPB. - CXR reviewed 10/03 and showed improvement. Pulm following. Cont mucomyst. - F/U Blood cultures. Sputum culture ordered - Cont mucinex (5) Anemia, chronic disease due to chronic kidney disease and pt is a Jehovah Witness Status: Acute Current Visit: Yes - iron supplementation. no transfusion due to catholic beliefs - has received Epo and Iron in the past. Will defer to nephrology for any additional treatment (6) Chronic diastolic congestive heart failure with preserved EF 60% by last ECHO Status: Acute Current Visit: Yes -Currently compensated. Monitor I's and O's (7) History of abdominal aortic aneurysm (AAA) Status: Acute Current Visit: Yes -Patient and family have declined surgical intervention in the past. monitor (8) Hyponatremia due to renal failure- resolved Status: Acute Current Visit: Yes -Likely due to renal failure. Monitor. (9) Diabetes mellitus- uncontrolled Status: Chronic Current Visit: No Qualifiers: Diabetes mellitus type: type 2 Diabetes mellitus complication detail: with other kidney complication -Insulin sliding scale. Accu-Cheks every 6. Schedule Long acting insulin (10) Essential Hypertension- controlled - Current BP meds. Current Visit: yes Qualifiers: Hypertension type: essential hypertension Qualified Code(s): I10 - Essential (primary) hypertension (11) Hypocalcemia - replaced (12) PEG tube dislodgement - replaced 10/03 per GI (appreciated) (13) Thrombocytopenia - Hold Lovenox for now. Monitor labs. If worsens or develops signs of bleeding check DIC panel, haptoglobin and LDH. DVT prophylaxis-DEAMRCUS caro D/W Sister with nurse present (Danielle King) and all questions answered. Probably could transfer to floor tomorrow if oxygen requirements decrease.
--- NOTE | 2016-10-04 08:45 | Pulmonology Progress Note ---
Pulmonary - PN: Subj Interval history: This 61-year-old man has severe anemia. He has had respiratory distress and bilateral infiltrates. Some of it is likely due to heart failure and has improved with diuresis. Some of it is due to his severe anemia. He will not allow blood transfusions due to his nondenominational. He is wearing a nonrebreathing mask and his oxygen saturation is running in the 98-100% range. Probably can reduce to a nebulized oxygen at 10 L 80%. Exam (Progress Note) - Constitutional Vitals: Period Temp Pulse Resp BP Sys/Crespo Pulse Ox Last 24 Hr 97.4 F-98.3 F 83-104 13-20 142-186/58-85 95-100 Exam: Patient is arousable and responsive. He is pale. He is tachypneic. Vital signs otherwise normal. Pupils react to light. Throat clear. Neck supple no bruits. Chest reveals some bibasilar crackles. Heart rapid rate normal rhythm no murmurs. Abdomen soft nontender no masses. Extremities no clubbing or cyanosis. He has 2+ peripheral edema. Results - Labs CBC & BMP: 10/04/16 02:46 10/04/16 02:46 Lab Results: I have reviewed the past 24 hour labs Assessment and Plan (1) Chronic respiratory failure Status: Acute Assessment and plan: We will try to reduce oxygen a little. Current Visit: Yes (2) Anemia, chronic disease Status: Acute Assessment and plan: Hematocrit 17. Patient does not allow transfusions. Current Visit: Yes (3) Congestive heart failure Status: Acute Assessment and plan: Continuing with diuretics. Part of his failure due to his severe anemia. Current Visit: Yes (4) Pneumonia Status: Acute Assessment and plan: Patient is on empiric antibiotics for pneumonia. Current Visit: No Qualifiers: Pneumonia type: aspiration pneumonia Aspiration pneumonia type: due to gastric secretions Laterality: unspecified laterality Lung location: unspecified part of lung Qualified Code(s): J69.0 - Pneumonitis due to inhalation of food and vomit
--- NOTE | 2016-10-04 09:25 | Cardiology Progress Note ---
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 Assessment and plan: SEE PLAN OF CARE LISTED BELOW Current Visit: Yes (2) Atrial fibrillation with RVR Status: Resolved Assessment and plan: SEE PLAN OF CARE LISTED BELOW Current Visit: Yes (3) Anemia Status: Chronic Assessment and plan: SEE PLAN OF CARE LISTED BELOW Current Visit: No Qualifiers: Anemia type: iron deficiency (4) Pneumonia Status: Acute Assessment and plan: SEE PLAN OF CARE LISTED BELOW Current Visit: No Qualifiers: Pneumonia type: aspiration pneumonia Aspiration pneumonia type: due to gastric secretions Laterality: unspecified laterality Lung location: unspecified part of lung Qualified Code(s): J69.0 - Pneumonitis due to inhalation of food and vomit (5) Bedbound patient Status: Chronic Assessment and plan: SEE PLAN OF CARE LISTED BELOW Current Visit: No (6) History of multiple strokes Status: Chronic Assessment and plan: SEE PLAN OF CARE LISTED BELOW Current Visit: No (7) Hypertension Problem details: Increase clonidine to 0.1mg per tube TID. Continue coreg 25 bid , norvasc 5mg daily, change lasix to 80mg bid via tube, isordil 40mg tid. This should be his discharge antihypertensive regimen. Status: Chronic Current Visit: No Qualifiers: Hypertension type: essential hypertension Qualified Code(s): I10 - Essential (primary) hypertension (8) Neuropathy Status: Chronic Assessment and plan: SEE PLAN OF CARE LISTED BELOW Current Visit: No (9) Dementia Status: Chronic Assessment and plan: SEE PLAN OF CARE LISTED BELOW Current Visit: No (10) Diabetes mellitus Status: Chronic Assessment and plan: SEE PLAN OF CARE LISTED BELOW Current Visit: No Qualifiers: Diabetes mellitus type: type 2 Diabetes mellitus complication detail: with other kidney complication (11) Chronic kidney disease, stage III (moderate) Status: Chronic Assessment and plan: SEE PLAN OF CARE LISTED BELOW Current Visit: No (12) History of abdominal aortic aneurysm Status: Chronic Assessment and plan: SEE PLAN OF CARE LISTED BELOW Current Visit: No (13) Anemia Status: Acute Current Visit: No (14) Community acquired pneumonia Status: Acute Assessment and plan: SEE PLAN OF CARE LISTED BELOW Current Visit: Yes Cardiology - PN: Subj Interval history: [employer] 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 VELAZQUEZ Patient is being seen in the CCU. He is demented and does not respond to my questions. Therefore, the majority of this information is taken from medical records and staff. SUMMARY: Mr. Kim, 61WM, Was admitted with decreased hypoxemic state by report. He was diagnosed with recurrent CAP, housed in CCU. He has been treated with appropriate antibiotics. Pulmonology has been consulted as well. He is a full code. GNOSTICISM. Cardiology was consulted for atrial fib with RVR. IV Amiodarone was initiated and he returned to normal sinus rhythm. Troponin was elevated and peaked at 2.16. EKG was abnormal but it is felt he is not a candidate for invasive work-up given his severely debilitated state, dementia and multiple comorbidities. OCTOBER 04, 2016: Patient remains in normal sinus rhythm. IV amiodarone was discontinued and he is taking Amiodarone 400 per PEG twice daily. Underwent PEG placement yesterday as his per previous PEG was thought to possibly be infected. He remains confused but more responsive today. Continues to require nonrebreather facemask. He is severely anemic with a hemoglobin of 5.3 this morning. Again, he is Scientologist and will not take blood products. LDL 59. Triglycerides 334. Echocardiogram September 17, 2016 reveals EF 60%, grade 2 diastolic dysfunction, no significant valvular abnormality. PAP 45 mmHg. At this time, he remains on IV Amiodarone and will complete the protocol then transition to oral Amiodarone. Blood pressure is uncontrolled and I will increase his beta-luis daniel for better control. Fasting lipid profile in the morning. Add lipid-lowering agent this evening. Continue with oral aspirin daily. Because his rhythm has returned to NSR, and because he will not take blood products, we will avoid anticoagulation and continue ASA only. Also, will avoid invasive workup such as cardiac catheterization given the patient's multiple comorbidities including bedridden state with severe dementia. Will further discuss with Dr. Velazquez and await additional recommendations. Blood pressure remains significantly elevated. I will increase his Diltiazem today for better blood pressure control. ASSESSMENT/PLAN: 1. ATRIAL FIBRILLATION WITH RVR - currently normal sinus rhythm. See plan listed above. Continue oral amiodarone 2. ELEVATED TROPONIN - may be related to the rapid ventricular response. Continue aspirin. Not a candidate for invasive workup. 3. HYPERTENSION - suboptimally controlled. Increasing CCB. 4. HISTORY CVA - continue current plan of care. Adding lipid-lowering agent. 5. DEBILITATED STATE - chronically debilitated with right hand contracture, PEG tube, multiple amputations, dementia. Continue current plan of care 6. SEVERE DEMENTIA - continue current plan of care 7. CHRONIC RENAL FAILURE, STAGE III -avoiding CARLOS inhibitors for fear of worsening renal insufficiency. 8. HYPOKALEMIA - will add potassium replacement protocol and monitor accordingly. 9. DIABETES - continue current plan of care 10. PNEUMONIA - on appropriate antibiotic therapy. 11. ANEMIA - Scientologist and therefore not a candidate for blood products. 12. JEHOVA'S WITNESS - NO BLOOD PRODUCTS Exam (Progress Note) - Constitutional Vitals: Period Temp Pulse Resp BP Sys/Crespo Pulse Ox Last 24 Hr 97.4 F-98.3 F 83-104 13-20 142-186/58-85 95-100 Exam: General: [61-year-old male who looks older than his stated age. Awake but confused. Wearing facemask at this point. HEENT: [normocephalic, atraumatic. Mucous membranes moist. No jaundice noted. Conjunctiva moist and clear, sclerae anicteric] Neck: No obvious JVD/HJR, no thyromegaly or lymphadenopathy noted. No carotid bruit appreciated Cardiac: [Regular rate and rhythm.] [No murmur rub or gallop.] Lungs: [Rhonchi noted throughout. No Accessory muscle use to assist the respiratory pattern.] Wearing facemask appear Abdomen: Soft, bowel sounds normoactive. Nontender and nondistended. PEG intact no abdominal bruit or thrill noted. No masses noted. Musculoskeletal: No fluid collection. Decreased range of motion is noted. Extremities: No clubbing, cyanosis noted. [Trace bilateral lower extremity edema. TEDs and boots to lower extremities.] Upper extremity pulses 2+. Difficult to palpate lower extremity pulses but warm to touch multiple amputation of toes Neuro: Sleeping and difficult to arouse. Right hand contracture noted. No essential tremor is appreciated. Result/EKG - Labs CBC & BMP: 10/04/16 02:46 10/04/16 02:46 Lab Results: I have reviewed the past 24 hour labs Labs: Laboratory Results - last 24 hr 10/03/16 10/03/16 10/03/16 17:49 18:30 23:29 WBC RBC Hgb Hct MCV MCH MCHC RDW Plt Count MPV Neut % (Auto) Lymph % (Auto) [place] % (Auto) Eos % (Auto) Baso % (Auto) Neut # (Auto) Lymph # (Auto) [place] # (Auto) Eos # (Auto) Baso # (Auto) Total Counted Immature Gran % Nucleated RBC % Immature Gran # Segmented Neutrophils Band Neutrophils Lymphocytes Eosinophils Nucleated RBCs # Platelet Estimate Hypochromasia Anisocytosis Sodium Potassium 4.8 Chloride Carbon Dioxide Anion Gap BUN Creatinine GFR Calculation BUN/Creatinine Ratio Glucose POC Glucose 234 H 212 H Calculated Osmolality Calcium Magnesium Triglycerides Cholesterol LDL Cholesterol VLDL Cholesterol HDL Cholesterol Heart Disease Risk Ratio 10/04/16 10/04/16 10/04/16 02:46 02:46 02:46 WBC 9.0 RBC 1.73 L D Hgb 5.3 L* D Hct 17.0 L* D MCV 98.3 MCH 31 MCHC 31.2 L RDW 23.0 H Plt Count 118 L D MPV 12.9 H Neut % (Auto) 78.5 H Lymph % (Auto) 5.0 L [place] % (Auto) 2.1 Eos % (Auto) 13.7 H Baso % (Auto) 0.1 Neut # (Auto) 7.0 Lymph # (Auto) 0.5 L [place] # (Auto) 0.2 Eos # (Auto) 1.2 H Baso # (Auto) 0.0 Total Counted 100 Immature Gran % 0.6 Nucleated RBC % 0.0 Immature Gran # 0.05 Segmented Neutrophils 90 H Band Neutrophils 1 Lymphocytes 5 L Eosinophils 4 Nucleated RBCs # 0.00 Platelet Estimate Adequate Hypochromasia 1+ Anisocytosis 1+ Sodium 137 Potassium 4.3 Chloride 92 L Carbon Dioxide 34 H Anion Gap 15.3 H BUN 95 H Creatinine 3.20 H GFR Calculation 22 BUN/Creatinine Ratio 29.00 H Glucose 191 H POC Glucose Calculated Osmolality 306.8 H Calcium 7.9 L Magnesium 2.6 H Triglycerides 334 H Cholesterol 121 LDL Cholesterol 59.0 VLDL Cholesterol 66.8 HDL Cholesterol 27 L Heart Disease Risk Ratio 4.48 10/04/16 05:03 WBC RBC Hgb Hct MCV MCH MCHC RDW Plt Count MPV Neut % (Auto) Lymph % (Auto) [place] % (Auto) Eos % (Auto) Baso % (Auto) Neut # (Auto) Lymph # (Auto) [place] # (Auto) Eos # (Auto) Baso # (Auto) Total Counted Immature Gran % Nucleated RBC % Immature Gran # Segmented Neutrophils Band Neutrophils Lymphocytes Eosinophils Nucleated RBCs # Platelet Estimate Hypochromasia Anisocytosis Sodium Potassium Chloride Carbon Dioxide Anion Gap BUN Creatinine GFR Calculation BUN/Creatinine Ratio Glucose POC Glucose 232 H Calculated Osmolality Calcium Magnesium Triglycerides Cholesterol LDL Cholesterol VLDL Cholesterol HDL Cholesterol Heart Disease Risk Ratio - Diagnostic Findings Procedure: Chest x-ray: report reviewed by me - EKG EKG results: interpreted by me EKG shows: sinus rhythm
[2016-10-04] MEDS: TAMSULOSIN 0.4 MG CAPSULE PO SCH (10:09)
[2016-10-04] MEDS: AMIODARONE 200 MG TABLET PO SCH ×2 (10:09→20:30)
[2016-10-04] MEDS: FOLIC ACID 0.4 MG TABLET PO SCH ×2 (10:10→20:30)
[2016-10-04] MEDS: METOPROLOL TARTRATE 50 MG TABLET PO SCH ×3 (10:10→20:30)
[2016-10-04] MEDS: DILTIAZEM 30 MG TABLET PO SCH ×4 (10:10→14:28)
[2016-10-04] MEDS: PIPERACILLIN/TAZOBACTAM 3,375 MG in SODIUM CHLORIDE 0.9% 100 ML IV SCH ×2 (10:11→21:34)
[2016-10-04] MEDS: PANTOPRAZOLE 40 MG TABLET PO SCH (10:11)
[2016-10-04] MEDS: ISOSORBIDE MONONITRATE 30 MG TABLET PO SCH (10:11)
[2016-10-04] MEDS: FINASTERIDE 5 MG TABLET PO SCH (10:16)
--- NOTE | 2016-10-04 10:28 | EKG Report ---
Stationary ECG Study [facility] Test Date: 10/04/2016 10:18:27 AM Pat Name: YULIANA ROSE Department: Room: 129 Gender: M Mason Liner: : 1955 Requested by: Judy Phipps Order Number: [id number] Reading MD: EDER BELLA Intervals [place] Rate: 103 P: 57 UT: 147 QRS: -11 QRSD: 108 T: 41 QT: 361 QTc: 421 Interpretive Statements SINUS TACHYCARDIA LEFT VENTRICULAR HYPERTROPHY AND ST-T CHANGE vs IVCD POSSIBLE SEPTAL MYOCARDIAL INFARCTION, Electronically Signed On 10-06-16 08:09:58 CDT by EDER BELLA [email or web address]
[2016-10-04] MEDS: DESITIN 4OZ/NYSTATIN 15 GRAM MIXTURE PASTE TOP SCH ×2 (10:49→20:31)
[2016-10-04] MEDS: CYANOCOBALAMIN 500 MCG TABLET PO SCH ×2 (10:57→20:30)
[2016-10-04] MEDS: SERTRALINE 25 MG TABLET PO SCH (10:57)
[2016-10-04] MEDS: BACITRACIN OINT 0.9 GM PACK TOP SCH (10:59)
--- NOTE | 2016-10-04 12:44 | Nephrology Progress Note ---
Nephrology - PN: Subj Interval history: Patient has his eyes open he seems look in my direction but had no interaction with me. Physical exam general the patient is chronically ill-appearing, heart is regular rate and rhythm, he has trace pretibial edema, lungs are clear to auscultation anteriorly, abdomen is soft with positive bowel sounds Assessment/plan 1. Dementia 2. Chronic kidney disease-patient's creatinine is actually improved a little from yesterday his urine output is okay 3. Hyperkalemia this is resolved 4. Anemia-patient's hematocrit is down to 17% apparently he does not allow blood transfusions. Exam (PN)-Nephrology - Vital Signs Vital signs: Period Temp Pulse Resp BP Sys/Crespo Pulse Ox Last 24 Hr 97.4 F-98.3 F 79-104 13-20 142-186/58-85 95-100 - Lab 10/04/16 02:46 10/04/16 02:46 Most recent lab results ABG pH 7.347 (7.35-7.45) L 09/30/16 19:14 ABG pCO2 42.0 MM HG (35-48) 09/30/16 19:14 ABG pO2 60.2 MM HG (80-95) L 09/30/16 19:14 ABG HCO3 22.5 MMOL/L (20-26) 09/30/16 19:14 ABG O2 Saturation 87.3 % (95-100) L 09/30/16 19:14 Calcium 7.9 MG/DL (8.5-10.1) L 10/04/16 02:46 Phosphorus 5.5 MG/DL (2.5-4.9) H 10/02/16 17:43 Magnesium 2.6 MG/DL (1.8-2.4) H 10/04/16 02:46
[2016-10-04] MEDS: DILTIAZEM 60 MG TABLET PO SCH ×3 (14:54→20:29)
[2016-10-04] MEDS: INSULIN GLARGINE 100 UNIT/ML SUBCUT SCH (20:30)
[2016-10-04] MEDS: METHOCARBAMOL 500 MG TABLET PO PRN (20:30)
[2016-10-04] MEDS: LEVOFLOXACIN INJ 500 MG in PREMIX 1 EACH IV SCH (20:30)
[2016-10-04] MEDS: ASPIRIN CHEW 81 MG TABLET PO SCH (20:30)
[2016-10-05] MEDS: SODIUM CHLORIDE 0.45% 1,000 ML IV SCH ×2 (01:01→01:26)
[2016-10-05] MEDS: ALBUTEROL 2.5 MG/3 ML NEB RESP TX SCH ×4 (01:47→20:21)
[2016-10-05] MEDS: ACETYLCYSTEINE 20% 800 MG/4 ML VIAL RESP TX SCH ×4 (01:47→20:21)
[2016-10-05] MEDS: HYDROmorphone 2 MG/1 ML VIAL IV PRN (03:12)
[2016-10-05 03:38] LABS: Calcium 7.8 MG/DL (8.5-10.1); Magnesium 2.8 MG/DL (1.8-2.4); Osmolality,Calculated 308.7 MOS/KG (273-304); Potassium 4.8 MMOL/L (3.5-5.1)
[2016-10-05 03:44] LABS: Troponin I Only 0.377 NG/ML (0.00-0.045)
[2016-10-05] MEDS: INSULIN REGULAR 100 UNIT/ML SUBCUT SCH ×3 (06:04→21:08)
--- NOTE | 2016-10-05 07:55 | Hospitalist Progress Note ---
Hospitalist: Subjective Interval history: Pt unable to wean to face mask as sats drop. On NRB and doing well. Tolerating tube feeds and no fever. No cp. Pt denies pain. Exam - Constitutional Vitals: Period Temp Pulse Resp BP Sys/Crespo Pulse Ox Last 24 Hr 97.4 F-98.5 F 65-105 12-33 124-176/51-82 93-100 Exam: Awake, alert and speaking and follow commands, chronically ill appearing RRR no M CTAB anteriorly, nonlabored, diminished at the bases Soft, distended, + bowel sounds, NTTP Warm no c/c/e. Abrasions on dorsal surface of left foot Results - Labs CBC & BMP: 10/04/16 02:46 10/05/16 02:11 - Impressions (1) Acute renal failure on suspected CKD 4- improving Status: Acute Current Visit: Yes - Hold IVF per renal - Holding Valsartan - s/p Tian's cocktail and Kayexalate x 2 - telemetry - serial labs - nephrology following (2) Hyperkalemia- resolved now with hypokalemia- corrected Status: Acute Current Visit: Yes - Holding Valsartan - s/p Tian's cocktail and Kayexalate x 2. - s/p calcium for myocardial stabilization - telemetry (3) Afib with RVR with elevated troponin - rate controlled on oral amiodarone, cardizem and metoprolol. Correct lytes. Cards following. TSH normal (4) History of multiple strokes s/p dysphagia on tubefeeds and expressive aphasia Status: Chronic Current Visit: Yes - Tubefeeds per nutrition recs (4) Suspected aspiration pneumonia Status: Acute Current Visit: Yes - Cont IV antibiotics, bronchodilators (changed to Xopenex), pulm toileting with IPPB. - CXR reviewed 10/03 and showed improvement. Pulm following. Cont mucomyst. - F/U Blood cultures. Sputum culture ordered - Cont mucinex (5) Anemia, chronic disease due to chronic kidney disease and pt is a Jehovah Witness Status: Acute Current Visit: Yes - iron supplementation. no transfusion due to roman catholic beliefs - has received Epo and Iron in the past. Will defer to nephrology for any additional treatment (6) Chronic diastolic congestive heart failure with preserved EF 60% by last ECHO Status: Acute Current Visit: Yes -Currently compensated. Monitor I's and O's (7) History of abdominal aortic aneurysm (AAA) Status: Acute Current Visit: Yes -Patient and family have declined surgical intervention in the past. monitor (8) Hyponatremia due to renal failure- resolved Status: Acute Current Visit: Yes -Likely due to renal failure. Monitor. (9) Diabetes mellitus- uncontrolled Status: Chronic Current Visit: No Qualifiers: Diabetes mellitus type: type 2 Diabetes mellitus complication detail: with other kidney complication -Insulin sliding scale. Accu-Cheks every 6. Schedule Long acting insulin (10) Essential Hypertension- controlled - Current BP meds. Current Visit: yes Qualifiers: Hypertension type: essential hypertension Qualified Code(s): I10 - Essential (primary) hypertension (11) Hypocalcemia - replaced (12) PEG tube dislodgement - replaced 10/03 per GI (appreciated) (13) Thrombocytopenia - Hold Lovenox for now. Monitor labs. If worsens or develops signs of bleeding check DIC panel, haptoglobin and LDH. DVT prophylaxis-DEMARCUS caro D/W nurse today. D/W Sister with nurse present (Rosalia) 10/04 and all questions answered. She requests transfer to [facility] for substitute blood product transfusion but due to patient not actively bleeding and HD stable, has been declined. May consider retrying in AM. Transfer to floor. D/W Pulm and Renal and agree. I will be away for several days. One of my associates will follow in my absence.
--- NOTE | 2016-10-05 08:04 | Pulmonology Progress Note ---
Pulmonary - PN: Subj Interval history: This 61-year-old man has severe anemia. He has had respiratory distress and bilateral infiltrates. Some of it is likely due to heart failure and has improved with diuresis. Some of it is due to his severe anemia. He will not allow blood transfusions due to his mosque. He is wearing a nonrebreathing mask and his oxygen saturation is running in the 98-100% range. 10/05/2016 patient did not tolerate 80% facemask. Back on nonrebreathing mask. Given his low hemoglobin, we will stay on nonrebreathing mask. Exam (Progress Note) - Constitutional Vitals: Period Temp Pulse Resp BP Sys/Crespo Pulse Ox Last 24 Hr 97.4 F-98.5 F 65-105 12-33 124-176/51-82 93-100 Exam: Patient is arousable and responsive. He is pale. He is tachypneic. Vital signs otherwise normal. Pupils react to light. Throat clear. Neck supple no bruits. Chest reveals some bibasilar crackles. Heart rapid rate normal rhythm no murmurs. Abdomen soft nontender no masses. Extremities no clubbing or cyanosis. He has 2+ peripheral edema. Little change from yesterday. Results - Labs CBC & BMP: 10/04/16 02:46 10/05/16 02:11 Lab Results: I have reviewed the past 24 hour labs Assessment and Plan (1) Chronic respiratory failure Status: Acute Assessment and plan: We will try to reduce oxygen a little. 10/05/2016 still requiring nonrebreathing mask. Current Visit: Yes (2) Anemia, chronic disease Status: Acute Assessment and plan: Hematocrit 17. Patient does not allow transfusions. Current Visit: Yes (3) Congestive heart failure Status: Acute Assessment and plan: Continuing with diuretics. Part of his failure due to his severe anemia. 10/05/2016 diuresing as required Current Visit: Yes (4) Pneumonia Status: Acute Assessment and plan: Patient is on empiric antibiotics for pneumonia. 10/05/2016 continuing antibiotic Current Visit: No Qualifiers: Pneumonia type: aspiration pneumonia Aspiration pneumonia type: due to gastric secretions Laterality: unspecified laterality Lung location: unspecified part of lung Qualified Code(s): J69.0 - Pneumonitis due to inhalation of food and vomit
[2016-10-05] MEDS: DESITIN 4OZ/NYSTATIN 15 GRAM MIXTURE PASTE TOP SCH ×2 (08:23→21:07)
[2016-10-05] MEDS: FOLIC ACID 0.4 MG TABLET PO SCH ×2 (08:23→21:06)
[2016-10-05] MEDS: CYANOCOBALAMIN 500 MCG TABLET PO SCH ×2 (08:23→21:06)
[2016-10-05] MEDS: DILTIAZEM 60 MG TABLET PO SCH ×4 (08:23→21:08)
[2016-10-05] MEDS: SERTRALINE 25 MG TABLET PO SCH (08:23)
[2016-10-05] MEDS: AMIODARONE 200 MG TABLET PO SCH ×2 (08:25→21:05)
[2016-10-05] MEDS: TAMSULOSIN 0.4 MG CAPSULE PO SCH (08:25)
[2016-10-05] MEDS: METOPROLOL TARTRATE 50 MG TABLET PO SCH ×3 (08:25→21:07)
[2016-10-05] MEDS: BACITRACIN OINT 0.9 GM PACK TOP SCH (08:25)
[2016-10-05] MEDS: PANTOPRAZOLE 40 MG TABLET PO SCH (08:25)
[2016-10-05] MEDS: ISOSORBIDE MONONITRATE 30 MG TABLET PO SCH (08:25)
[2016-10-05] MEDS: FINASTERIDE 5 MG TABLET PO SCH (08:25)
[2016-10-05] MEDS: METHOCARBAMOL 500 MG TABLET PO PRN (08:41)
--- NOTE | 2016-10-05 08:45 | Nephrology Progress Note ---
Nephrology - PN: Subj Interval history: Patient was a little more interactive today he weakly said hello. Physical exam general the patient is chronically ill-appearing, heart is regular rate and rhythm, he has 1-2+ thigh edema, lungs are clear to auscultation anteriorly, abdomen is soft with positive bowel sounds Urine output is about a liter behind his input yesterday, his weight is stable from yesterday but up a little bit from the past few days, the patient's FiO2 requirement is increasing. Assessment/plan 1. Chronic kidney disease-this patient creatinine is a little improved from yesterday, this may be more of a delusional effect and an improvement in his GFR 2. Hypoxia-patient's FiO2 is up to 80%, I am going to stop his IV fluids that he is getting at 75 cc an hour, he is getting tube feeds as well as tube feed flushes at 45 cc an hour of water, this should be enough to keep him hydrated 3. Dementia 4. Anemia-patient's hematocrits decreased to 17% Exam (PN)-Nephrology - Vital Signs Vital signs: Period Temp Pulse Resp BP Sys/Crespo Pulse Ox Last 24 Hr 97.0 F-98.5 F 65-105 12-33 124-176/51-82 91-100 - Lab 10/04/16 02:46 10/05/16 02:11 Most recent lab results ABG pH 7.347 (7.35-7.45) L 09/30/16 19:14 ABG pCO2 42.0 MM HG (35-48) 09/30/16 19:14 ABG pO2 60.2 MM HG (80-95) L 09/30/16 19:14 ABG HCO3 22.5 MMOL/L (20-26) 09/30/16 19:14 ABG O2 Saturation 87.3 % (95-100) L 09/30/16 19:14 Calcium 7.8 MG/DL (8.5-10.1) L 10/05/16 02:11 Phosphorus 5.5 MG/DL (2.5-4.9) H 10/02/16 17:43 Magnesium 2.8 MG/DL (1.8-2.4) H 10/05/16 02:11
[2016-10-05] MEDS: PIPERACILLIN/TAZOBACTAM 3,375 MG in SODIUM CHLORIDE 0.9% 100 ML IV SCH ×2 (09:19→21:05)
--- NOTE | 2016-10-05 16:47 | Cardiology Progress Note ---
Assessment and Plan (1) CKD stage 4 due to type 2 diabetes mellitus Problem details: No indication for renal replacement therapy. Pt is not a good chronic dialysis candidate due to comorbidities. Status: Acute Assessment and plan: 10/05/16 no more chest pain Cardiac isoenzymes are negative, against the recent chest pain being ACS. It probably was emotional related His own anxiety medications Hematocrit 17 yesterday. Received some blood. Okay with me to move out of CCU when you say so Current Visit: No (2) Acute renal failure Status: Acute Current Visit: Yes (3) Anemia, chronic disease Status: Acute Current Visit: Yes (4) Aspiration pneumonia Status: Acute Current Visit: Yes (5) Chronic respiratory failure Status: Acute Current Visit: Yes (6) Community acquired pneumonia Status: Acute Current Visit: Yes (7) Congestive heart failure Status: Acute Current Visit: Yes (8) Expressive aphasia Status: Acute Current Visit: Yes (9) History of abdominal aortic aneurysm (AAA) Status: Acute Current Visit: Yes (10) Hyperkalemia Problem details: No indication for dialysis. Not a chronic dialysis candidate due to comorbidities/dementia. Status: Acute Current Visit: Yes (11) Hyponatremia Status: Acute Current Visit: Yes (12) Hypoxia Status: Acute Current Visit: Yes (13) Sequela of cerebrovascular accident Status: Acute Current Visit: Yes (14) Patient is Bahai Status: Chronic Current Visit: Yes (15) Atrial fibrillation with RVR Status: Resolved Current Visit: Yes (16) Altered mental status Status: Acute Current Visit: No (17) BPH (benign prostatic hyperplasia) Status: Acute Current Visit: No Cardiology - PN: Subj Interval history: No more chest pain overnight. Some shortness of breath. Exam (Progress Note) - Constitutional Vitals: Period Temp Pulse Resp BP Sys/Crespo Pulse Ox Last 24 Hr 97.0 F-98.2 F 65-96 12-33 124-176/51-82 91-100 Exam: HEENT: Pupils equal, reactive to light and accommodation Neck: NoJVD or bruit Lungs clear to auscultation Heart: Regular rhythm rate with normal S1 and S2. Apical S4 Abdomen: No hepatosplenomegaly Spine/extremities: No clubbing, cyanosis, or edema Neuro: Nonfocal Psych: No depression or anxiety Result/EKG - Labs CBC & BMP: 10/04/16 02:46 10/05/16 02:11 Lab Results: I have reviewed the past 24 hour labs Labs: Laboratory Results - last 24 hr 10/04/16 10/04/16 10/05/16 16:58 23:10 02:11 Sodium 138 Potassium 4.8 Chloride 96 L Carbon Dioxide 32 Anion Gap 14.8 BUN 98 H Creatinine 3.10 H GFR Calculation 23 BUN/Creatinine Ratio 31.00 H Glucose 156 H POC Glucose 214 H 198 H Calculated Osmolality 308.7 H Calcium 7.8 L Magnesium 2.8 H Total Creatine Kinase CK-MB (CK-2) Troponin I 10/05/16 10/05/16 10/05/16 02:11 05:04 11:24 Sodium Potassium Chloride Carbon Dioxide Anion Gap BUN Creatinine GFR Calculation BUN/Creatinine Ratio Glucose POC Glucose 206 H 210 H Calculated Osmolality Calcium Magnesium Total Creatine Kinase 21 L D CK-MB (CK-2) < 1.0 Troponin I 0.377 H D
[2016-10-05] MEDS: ASPIRIN CHEW 81 MG TABLET PO SCH (21:06)
[2016-10-05] MEDS: INSULIN GLARGINE 100 UNIT/ML SUBCUT SCH (21:07)
[2016-10-06] MEDS: ACETAMINOPHEN 325 MG TABLET PO PRN ×2 (01:20→12:27)
[2016-10-06] MEDS: INSULIN REGULAR 100 UNIT/ML SUBCUT SCH ×5 (01:20→18:00)
[2016-10-06] MEDS: ALBUTEROL 2.5 MG/3 ML NEB RESP TX SCH ×4 (02:02→19:42)
[2016-10-06] MEDS: ACETYLCYSTEINE 20% 800 MG/4 ML VIAL RESP TX SCH ×4 (02:03→19:42)
[2016-10-06 05:34] LABS: Calcium 8.5 MG/DL (8.5-10.1); Magnesium 2.9 MG/DL (1.8-2.4); Osmolality,Calculated 308.7 MOS/KG (273-304); Phosphorous 5.8 MG/DL (2.5-4.9); Potassium 5.1 MMOL/L (3.5-5.1); Prealbumin 17.6 MG/DL (20-40)
--- NOTE | 2016-10-06 08:59 | Pulmonology Progress Note ---
Pulmonary - PN: Subj Interval history: Patient is a 61-year-old white man that is very debilitated. 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 He has chronic renal failure with anemia chronic disease and does not want blood because the family is [employer]. He now has congestive heart failure and possible pneumonia. Over the weekend he has done okay but still requires oxygen. He still cannot cough secretions very well. His hemoglobin did drop to 5.3. His renal function is a little better. Otherwise he looks about the same Exam (Progress Note) - Constitutional Vitals: Period Temp Pulse Resp BP Sys/Crespo Pulse Ox Last 24 Hr 97.0 F-98.5 F 76-106 18-25 148-211/68-93 94-100 Exam: General appearance: the patient is comfortable on facemask oxygen and does respond a little. He has some abdominal breathing and certainly cannot cough very well. His O2 saturation is adequate on oxygen. - Head Head exam: Present: normal inspection, normocephalic - Eye Eye exam: Present: EOMI. Absent: scleral icterus Pupils: Present: JOVANY - ENT ENT exam: Present: other (He has better coloring.) - Neck Neck exam: Present: normal inspection. Absent: lymphadenopathy, thyromegaly - Respiratory Respiratory exam: Present: He has equal breath sounds bilaterally but he does have bilateral rhonchi and rales. He still has a very poor cough. He has some abdominal breathing but looks about the same. - Cardiovascular Cardiovascular exam: Present: regular rate and rhythm, systolic murmur (He does have a soft murmur). Absent: gallop - GI/Abdominal GI/Abdominal exam: Present: hypoactive bowel sounds, soft. Absent: organomegaly , tenderness - Extremities Exam Extremities exam: Present: other (Multiple toe amputations). Absent: calf tenderness, edema - Neurological Exam Neurological exam: Present: other (He will look around but really cannot communicate much.) - Psychiatric Psychiatric exam: Absent: anxious - Skin Skin exam: Present: warm, pallor Results - Labs CBC & BMP: 10/04/16 02:46 10/06/16 03:11 Assessment and Plan (1) History of multiple strokes Status: Chronic Assessment and plan: The patient has had multiple strokes and is bedridden. He is extremely debilitated. His neurological status is about at baseline. He looks about the same today. Current Visit: No (2) Dementia Status: Chronic Assessment and plan: Patient will arouse but is not very alert. He does not communicate very well. He may be close to baseline. Current Visit: No (3) Diabetes mellitus Status: Chronic Assessment and plan: His glucoses will be monitored. His glucose was 200 this morning. Current Visit: No Qualifiers: Diabetes mellitus type: type 2 Diabetes mellitus complication detail: with other kidney complication (4) Hyperkalemia Status: Acute Assessment and plan: The patient has a potassium of 5.1 today. Current Visit: No (5) Leg ulcer Status: Acute Assessment and plan: The patient has had bilateral leg ulcers. Current Visit: No (6) CKD stage 4 due to type 2 diabetes mellitus Problem details: No indication for renal replacement therapy. Pt is not a good chronic dialysis candidate due to comorbidities. Status: Acute Assessment and plan: The patient has chronic renal failure and his creatinine is down to 3.0 today. Current Visit: No (7) Chronic respiratory failure Status: Acute Assessment and plan: The patient likely has aspiration pneumonia and chronic respiratory problems. He has very poor pulmonary toilet. He is getting antibiotics for pneumonia. Some of this is probably volume overload. He has labored breathing at times and drops his O2 saturation easily. Will repeat his chest x-ray in the morning. Current Visit: Yes (8) Anemia, chronic disease Status: Acute Assessment and plan: The patient has chronic anemia and now his hemoglobin is down to 5.3. Current Visit: Yes (9) Congestive heart failure Status: Acute Assessment and plan: Patient's chest x-ray looks like pulmonary edema. He did diurese him yesterday. His chest x-ray is better and his oxygenation is stable. He probably does have a component of heart failure that is better. He did get considerable fluid over the weekend and his breathing is a little worse. Will check a chest x-ray tomorrow. Current Visit: Yes
[2016-10-06 09:04] LABS: % Iron Saturation 21.9 % (18-50)
[2016-10-06] MEDS: PIPERACILLIN/TAZOBACTAM 3,375 MG in SODIUM CHLORIDE 0.9% 100 ML IV SCH ×2 (10:09→22:40)
[2016-10-06] MEDS: TAMSULOSIN 0.4 MG CAPSULE PO SCH (10:10)
[2016-10-06] MEDS: DILTIAZEM 60 MG TABLET PO SCH ×4 (10:10→20:48)
[2016-10-06] MEDS: METOPROLOL TARTRATE 50 MG TABLET PO SCH ×3 (10:10→20:47)
[2016-10-06] MEDS: FOLIC ACID 0.4 MG TABLET PO SCH ×2 (10:10→20:48)
[2016-10-06] MEDS: CYANOCOBALAMIN 500 MCG TABLET PO SCH ×2 (10:10→20:48)
[2016-10-06] MEDS: METHOCARBAMOL 500 MG TABLET PO PRN ×2 (10:10→20:47)
[2016-10-06] MEDS: BACITRACIN OINT 0.9 GM PACK TOP SCH (10:10)
[2016-10-06] MEDS: SERTRALINE 25 MG TABLET PO SCH (10:10)
[2016-10-06] MEDS: FINASTERIDE 5 MG TABLET PO SCH (10:10)
[2016-10-06] MEDS: ISOSORBIDE MONONITRATE 30 MG TABLET PO SCH (10:11)
[2016-10-06] MEDS: AMIODARONE 200 MG TABLET PO SCH ×2 (10:11→20:47)
[2016-10-06] MEDS: PANTOPRAZOLE 40 MG TABLET PO SCH (10:11)
[2016-10-06] MEDS: DESITIN 4OZ/NYSTATIN 15 GRAM MIXTURE PASTE TOP SCH ×2 (10:12→20:49)
--- NOTE | 2016-10-06 10:27 | Cardiology Progress Note ---
Everett Trinh Vanessa, RN, am scribing for, and in the presence of, Tino Gallegos MD 10:22. Assessment and Plan - Time spent with patient Time spent with patient: Greater than 30 minutes (1) Congestive heart failure Status: Acute Assessment and plan: This may well be secondary to his atrial flutter rapid ventricular response. This too may have been associated with his multiple underlying medical issues. His ejection fraction is been normal previously and this was a recent history. Current Visit: Yes (2) Anemia Status: Acute Assessment and plan: History of severe iron deficiency anemia. He has received IV iron in the previous, and he is receiving Epogen. Last cell count on October 04 with H&H 5.3/ 17.0. Iron level this morning 41 with TIBC 187. 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 Current Visit: No (3) Atrial fibrillation with RVR Status: Resolved Assessment and plan: Patient did experience atrial fibrillation with RVR earlier in the course of his admission. Since he converted, and was transitioned from IV amiodarone to oral amiodarone, he has remained in a sinus rhythm. Cardiac monitoring and EKG with sinus rhythm and sinus tach, pulse rate 90-100. He is anticoagulated with aspirin only as he has remained in a sinus rhythm, he will be unable to take blood products if needed, and he has multiple comorbidities. Current Visit: Yes (4) Aspiration pneumonia Status: Acute Assessment and plan: Being treated by pulmonary medicine. Current Visit: Yes (5) Patient is Scientologist Status: Chronic Assessment and plan: He has had significant anemia during the course of this admission. Due to his jew, however, he cannot take blood products. Current Visit: Yes (6) History of abdominal aortic aneurysm (AAA) Status: Chronic Assessment and plan: He has been followed in the past by an endovascular surgeon in [place]. Current Visit: Yes (7) CKD stage 4 due to type 2 diabetes mellitus Problem details: No indication for renal replacement therapy. Pt is not a good chronic dialysis candidate due to comorbidities. Status: Acute Assessment and plan: Current creatinine is 3.0 with GFR of 24. Dr. Graham is following also. Current Visit: No (8) Bedbound patient Status: Chronic Current Visit: No (9) Dementia Status: Chronic Assessment and plan: Chronic pain. 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 Current Visit: No (10) Diabetes mellitus Status: Chronic Assessment and plan: Continue current plan of care. Defer primary management to hospital medicine. Current Visit: No Qualifiers: Diabetes mellitus type: type 2 Diabetes mellitus complication detail: with other kidney complication (11) History of multiple strokes Status: Chronic Assessment and plan: Chronic. He has a dementia, and he is bedridden as a result of multiple previous strokes. Current Visit: No (12) Hypertension Problem details: Increase clonidine to 0.1mg per tube TID. Continue coreg 25 bid , norvasc 5mg daily, change lasix to 80mg bid via tube, isordil 40mg tid. This should be his discharge antihypertensive regimen. Status: Chronic Assessment and plan: Suboptimally controlled. Current Visit: No Qualifiers: Hypertension type: essential hypertension Qualified Code(s): I10 - Essential (primary) hypertension (13) Community acquired pneumonia Status: Acute Assessment and plan: IV antibiotics and nebulizer treatments. Current Visit: Yes Cardiology - PN: Subj Interval history: PRIMARY MANAGER KNOWLEDGE: DR. BELLA ([facility]) SUMMARY: Mr. Kim is a 61-year-old white male with risk factors significant for: Hypertension, diabetes, sedentary lifestyle, previous CVA, and he has never been a smoker. Past medical history includes severe dementia, chronic kidney disease with a chronic anemia. He has also had some recent mild GI bleeding prior to this hospital admission which resolved. He has also had multiple hospitalizations recently for recurrent pneumonia including aspiration pneumonia with subsequent respiratory failure requiring mechanical ventilation. 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 Patient presented to [facility] ED on September 30 per his family at recommendation of home health nurse due to hypoxia with O2 saturations reportedly in the 70s. Chest x-ray showed worsening alveolar infiltrate throughout the right lung, and patient was admitted to the [facility] CCU for treatment of aspiration pneumonia. After admission the CCU, patient noted to have developed atrial fibrillation with RVR, had an abnormal troponin level up to 2.16. Cardiology was asked to see due to atrial fibrillation and abnormal troponin level. Patient did receive IV amiodarone bolus and infusion, and he did convert to sinus rhythm. He was transitioned to oral amiodarone. Echocardiogram on September 17 of LV ejection fraction 60%, grade 2 diastolic dysfunction and no significant valvular disease, mild TR with PA pressure 45 mmHg. During admission, patient is also being followed by pulmonology, nephrology, and gastroenterology did see patient for placement of a dislodged PEG tube. Also noted he presented initially with hyperkalemia with K+ up to 7.6, improved after Kayexalate, most recent potassium 5.1. Patient was transferred from CCU to [facility] room on October 05. September: Mr. Kim is seen and examined this morning in room on [facility] floor. He has been relatively stable overnight, but he is still requiring 100% nonrebreather mask which has been difficult to wean. Patient's sister is present at bedside. Mr. Kim is minimally responsive. He has a history of dementia. He does make some brief eye contact, but he does not follow commands. Patient's sister reports that patient is having a hard time coughing and clearing secretions. He does not appear to be in acute respiratory distress, and he appears to be overall comfortable. Bilateral upper extremities with some mild peripheral edema. Systolic BP 165-180 mmHg. Pulse rate 90s and regular by exam. Labs reviewed. K+ 5.1 creatinine 3.0 with GFR of 24. MG +2.9. Prealbumin is 17.6. His last vice chairman was sinus rhythm. His rhythm is regular but was tachycardic today. Blood pressures look elevated he may need change his blood pressure medications. Sinus tachycardia may related to his low hematocrit. Secondary to his dementia he is unable to give us any symptomatic history. Exam (Progress Note) - Constitutional Vitals: Period Temp Pulse Resp BP Sys/Crespo Pulse Ox Last 24 Hr 97.0 F-98.5 F 76-106 18-25 148-211/68-93 94-100 Exam: General: 61-year-old male who looks older than his stated age. He does not obey commands. Does make brief eye contact. HEENT: normocephalic, atraumatic. Mucous membranes moist. No jaundice noted. Conjunctiva moist and clear, sclerae anicteric Neck: No obvious JVD/HJR, no thyromegaly or lymphadenopathy noted. No carotid bruit appreciated Cardiac: Regular rhythm with slight tachycardia. No murmur, rub, or gallop. Lungs: Rhonchi scattered throughout, bibasilar rales. Some accessory muscle use for air movement. Supplemental oxygen via 100% nonrebreather mask. Abdomen: Soft, bowel sounds hypoactive. Nontender and nondistended. PEG intact. No abdominal bruit or thrill noted. No masses noted. Musculoskeletal: No fluid collection. Decreased range of motion is noted. Extremities: No clubbing, cyanosis noted. [Trace bilateral lower extremity edema. Soft boots to lower extremities.] Upper extremity pulses 2+. Difficult to palpate lower extremity pulses but warm to touch multiple amputation of toes. Mild petechiae bilateral upper extremities. Neuro: Does not appear to be anxious at this time. Right hand contracture noted. No essential tremor is appreciated. He does not communicate or interact. Psychiatric: The patient really does not respond to stimuli other than the noted eye contact. This may relate to his dementia as well as his severe underlying medical issues. Result/EKG - Labs CBC & BMP: 10/04/16 02:46 10/06/16 03:11 Lab Results: I have reviewed the past 24 hour labs Labs: Laboratory Results - last 24 hr 10/05/16 10/05/16 10/05/16 11:24 15:40 20:02 Sodium Potassium Chloride Carbon Dioxide Anion Gap BUN Creatinine GFR Calculation BUN/Creatinine Ratio Glucose POC Glucose 210 H 196 H 179 H Calculated Osmolality Calcium Phosphorus Magnesium Prealbumin 10/06/16 10/06/16 10/06/16 01:28 03:11 06:21 Sodium 138 Potassium 5.1 Chloride 97 L Carbon Dioxide 29 Anion Gap 17.1 H BUN 98 H Creatinine 3.00 H GFR Calculation 24 BUN/Creatinine Ratio 32.00 H Glucose 156 H POC Glucose 205 H 203 H Calculated Osmolality 308.7 H Calcium 8.5 Phosphorus 5.8 H Magnesium 2.9 H Prealbumin 17.6 L 10/06/16 07:18 Sodium Potassium Chloride Carbon Dioxide Anion Gap BUN Creatinine GFR Calculation BUN/Creatinine Ratio Glucose POC Glucose 200 H Calculated Osmolality Calcium Phosphorus Magnesium Prealbumin - Diagnostic Findings Procedure: Chest x-ray: image reviewed by me - EKG EKG results: interpreted by me, no acute changes EKG shows: sinus rhythm El Trinh John Timothy, MD, personally performed the services described in this documentation, ascribed by Lauryn Floyd RN in my presence, and it is both accurate and complete .
[2016-10-06] MEDS: EPOETIN ALFA 10,000 UNIT/1 ML VIAL SUBCUT SCH (12:26)
--- NOTE | 2016-10-06 14:16 | Hospitalist Progress Note ---
Assessment and Plan (1) Anemia due to chronic kidney disease Status: Acute Assessment and plan: H/H trended down yesterday Recheck in am Pt is a Orthodoxy and does not accept blood products Current Visit: Yes (2) Patient is Christian Status: Chronic Current Visit: Yes (3) Aspiration pneumonia Status: Acute Assessment and plan: Vancomycin and zosyn Current Visit: Yes (4) Sequela of cerebrovascular accident Status: Acute Current Visit: Yes (5) History of abdominal aortic aneurysm (AAA) Status: Chronic Assessment and plan: Family declines intervention Current Visit: Yes Hospitalist: Subjective Interval history: No acute events overnight. Patient's sister reports that he is doing better. Still requiring non-rebreather. His sister would like for ID to see him for recurrence of pneumonia. He is currently being treated for aspiration pneumonia. I wonder if he could be a candidate for LTAC. Exam - Constitutional Vitals: Period Temp Pulse Resp BP Sys/Crespo Pulse Ox Last 24 Hr 97.3 F-98.5 F 76-106 18-25 165-211/74-93 93-100 General appearance: over weight - Head Head exam: Present: normocephalic, atraumatic - Eye Eye exam: Present: EOMI Pupils: Present: JOVANY - ENT ENT exam: Present: normal exam - Neck Neck exam: Present: normal inspection - Respiratory Respiratory exam: Present: clear to auscultation bilaterally. Absent: wheezes - Cardiovascular Cardiovascular exam: Present: regular rate and rhythm - GI/Abdominal GI/Abdominal exam: Present: normal bowel sounds, soft. Absent: tenderness, rebound - Extremities Exam Extremities exam: Present: normal inspection - Back Exam Back exam: Present: normal inspection - Neurological Exam Neurological exam: Present: other (opens his eyes, does not follow commands) - Psychiatric Psychiatric exam: Present: normal affect - Skin Skin exam: Present: warm, intact Results - Labs CBC & BMP: 10/04/16 02:46 10/06/16 03:11
--- NOTE | 2016-10-06 15:19 | Nephrology Progress Note ---
Nephrology - PN: Subj Interval history: Sister c/o increased abdominal distention. Hct acutely dropped over last 3 days ~ one unit pRBCs. Iron studies ordered this am. Epogen restarted. Creatinine stable at 3.0, eGFR 24cc/min. Exam (PN)-Nephrology - Vital Signs Vital signs: Period Temp Pulse Resp BP Sys/Crespo Pulse Ox Last 24 Hr 97.3 F-98.5 F 76-106 18-25 165-211/74-93 93-100 - General Appearance General appearance: well-developed, chronically ill EENT: ATNC, PERRL, mucous membranes moist Neck: no JVD, no thyromegaly Respiratory: no kyphosis, clear Cardiology: no murmurs, no rub Gastrointestinal: normoactive bowel sounds, no tenderness, obese Integumentary: no rash, warm and dry Neurologic: no focal deficit, no asterixis, alert and oriented x3 Musculoskeletal: no deformities, no erythema - Lab 10/04/16 02:46 10/06/16 03:11 Most recent lab results ABG pH 7.347 (7.35-7.45) L 09/30/16 19:14 ABG pCO2 42.0 MM HG (35-48) 09/30/16 19:14 ABG pO2 60.2 MM HG (80-95) L 09/30/16 19:14 ABG HCO3 22.5 MMOL/L (20-26) 09/30/16 19:14 ABG O2 Saturation 87.3 % (95-100) L 09/30/16 19:14 Calcium 8.5 MG/DL (8.5-10.1) 10/06/16 03:11 Phosphorus 5.8 MG/DL (2.5-4.9) H 10/06/16 03:11 Magnesium 2.9 MG/DL (1.8-2.4) H 10/06/16 03:11 Assessment and Plan (1) Hyponatremia Status: Acute Current Visit: Yes (2) Sequela of cerebrovascular accident Status: Acute Current Visit: Yes (3) BPH (benign prostatic hyperplasia) Status: Acute Current Visit: No (4) CKD stage 4 due to type 2 diabetes mellitus Problem details: No indication for renal replacement therapy. Pt is not a good chronic dialysis candidate due to comorbidities. Status: Acute Current Visit : No (5) Dementia Status: Chronic Current Visit: No (6) Anemia Status: Chronic Assessment and plan: Check iron saturation, goal FeSat >20%. Restart Epogen TIW. Stool for OB x 3. Current Visit: No Qualifiers: Anemia type: iron deficiency
[2016-10-06] MEDS: INSULIN GLARGINE 100 UNIT/ML SUBCUT SCH (20:44)
[2016-10-06] MEDS: ASPIRIN CHEW 81 MG TABLET PO SCH (20:47)
[2016-10-06] MEDS: LEVOFLOXACIN INJ 500 MG in PREMIX 1 EACH IV SCH (20:49)
[2016-10-07] MEDS: ACETYLCYSTEINE 20% 800 MG/4 ML VIAL RESP TX SCH ×3 (00:52→19:37)
[2016-10-07] MEDS: ALBUTEROL 2.5 MG/3 ML NEB RESP TX SCH ×3 (00:52→19:37)
[2016-10-07] MEDS: INSULIN REGULAR 100 UNIT/ML SUBCUT SCH ×4 (01:24→18:05)
[2016-10-07] MEDS: ACETAMINOPHEN 325 MG TABLET PO PRN ×2 (03:39→17:41)
[2016-10-07 04:47] LABS: Immature Granulocytes % 0.5 %; Immature Granulocytes Absolute 0.06 #; Lymphocytes # 0.4 10*3/uL (1.4-4.0); Lymphocytes % 3.2 % (21.2-54.2); Mean Corpuscular HGB Conc 30.7 GM/DL (32-36); Mean Corpuscular Hemoglobin 31 PG (27-34); Mean Corpuscular Volume 99.4 FL (87-102); Mean Platelet Volume 13.5 FL (9.6-12.0); Monocytes # 0.5 10*3/uL (0.11-0.8); Monocytes % 4.6 % (1.7-12.7); Neutrophils # 9.5 10*3/uL (1.4-7.4); Neutrophils % 82.7 % (38.7-73.9); Platelet Count 141 T/CUMM (130-400); Red Blood Count 1.77 MC/CUMM (3.8-5.5); Red Cell Distribution Width 20.8 % (9.3-17.3); White Blood Count 11.5 T/CUMM (4-12)
[2016-10-07 04:49] LABS: Hematocrit 17.6 VOL% (42.0-52.0); Hemoglobin 5.4 GM/DL (14.0-18.0)
[2016-10-07 05:18] LABS: Calcium 8.5 MG/DL (8.5-10.1); Magnesium 3.1 MG/DL (1.8-2.4); Osmolality,Calculated 313.7 MOS/KG (273-304); Potassium 5.9 MMOL/L (3.5-5.1)
[2016-10-07 05:23] LABS: % Iron Saturation 24.9 % (18-50)
[2016-10-07 05:33] LABS: Eosinophils 7 % (0-10); Hypochromasia 2+; Lymphocytes 3 % (20-55); Microcytosis 2+; Platelet Estimate Adequate; Segmented Neutrophils 89 % (50-85); Total Cells Counted 100
[2016-10-07] MEDS: hydrALAZINE 20 MG/1 ML VIAL IV PRN (05:57)
--- NOTE | 2016-10-07 07:03 | XRay Report ---
Portable chest Date: 10/07/2016 Clinical history: Pneumonia Comparison: 10/03/2016 Technique: Portable AP sitting chest Findings: Stable cardiomegaly. Minimal reduction in the diffuse parenchymal findings in the lungs with minimal decrease in the size of the pleural effusions. Findings remain more prominent on the right. Stable mediastinum and osseous structures. Impression: Minimally improved bilateral pneumonia with minimally smaller pleural effusions. Continued follow-up chest x-ray is recommended to document clearing and exclude additional underlying pathology. PROCEDURE INTERPRETED AT [facility] DEPARTMENT OF RADIOLOGY Final Report Signed by: Dr. Danielle Dyer
--- NOTE | 2016-10-07 07:21 | Cardiology Progress Note ---
Assessment and Plan (1) Congestive heart failure Status: Acute Assessment and plan: Clinically this is fairly stable. Previously has had a normal ejection fraction with some mild to moderate diastolic dysfunction. Much of his respiratory issues are secondary to what is felt to be pneumonia. Current Visit: Yes (2) Anemia Status: Acute Assessment and plan: This remains severe but he is Jehovah witness and will not take blood. Current Visit: No (3) Atrial fibrillation with RVR Status: Resolved Assessment and plan: Patient did experience atrial fibrillation with RVR earlier in the course of his admission. This is probably secondary to his other comorbidities. At this time is in sinus rhythm with managed rates. Current Visit: Yes (4) Aspiration pneumonia Status: Acute Assessment and plan: Being treated by pulmonary medicine. Current Visit: Yes (5) Patient is Jainism Status: Chronic Assessment and plan: Due to his catholic he cannot take or will not take blood. Current Visit: Yes (6) History of abdominal aortic aneurysm (AAA) Status: Chronic Assessment and plan: He has been followed in the past by an endovascular surgeon in [place]. Current Visit: Yes (7) CKD stage 4 due to type 2 diabetes mellitus Problem details: No indication for renal replacement therapy. Pt is not a good chronic dialysis candidate due to comorbidities. Status: Acute Assessment and plan: Current creatinine is 3.0 with GFR of 24. Dr. Graham is following also. Current Visit: No (8) Bedbound patient Status: Chronic Current Visit: No (9) Dementia Status: Chronic Assessment and plan: Chronic pain. 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 Current Visit: No (10) Diabetes mellitus Status: Chronic Assessment and plan: Continue current plan of care. Defer primary management to hospital medicine. Current Visit: No Qualifiers: Diabetes mellitus type: type 2 Diabetes mellitus complication detail: with other kidney complication (11) History of multiple strokes Status: Chronic Assessment and plan: Chronic. He has a dementia, and he is bedridden as a result of multiple previous strokes. Current Visit: No (12) Hypertension Problem details: Increase clonidine to 0.1mg per tube TID. Continue coreg 25 bid , norvasc 5mg daily, change lasix to 80mg bid via tube, isordil 40mg tid. This should be his discharge antihypertensive regimen. Status: Chronic Assessment and plan: Suboptimally controlled. Hopefully may be a to titrate some of his medications. Current Visit: No Qualifiers: Hypertension type: essential hypertension Qualified Code(s): I10 - Essential (primary) hypertension (13) Community acquired pneumonia Status: Acute Assessment and plan: This is being treated by pulmonary medicine. Current Visit: Yes (14) Hyperkalemia Status: Acute Assessment and plan: Potassium is back up. He may benefit from some Kayexalate. Current Visit: No Cardiology - PN: Subj Interval history: Patient this morning is minimally responsive. He is somewhat agonal in terms of his respirations. CHEMICAL COMPOUNDER HELPER was called because he was not that responsive. A chest x-ray report from this morning indicates that he has minimally improved bilateral pneumonia with small pleural effusions. His rhythm remains sinus with a normal rate. His CBC today continues to have hematocrit of 17.6 and hemoglobin of 5.4. His chemistries are noted with potassium of 5.9 which of course is slowly increasing again. His creatinine is 3.2 which is stable, his BUN is 112 which is increasing again. Iron is low. His blood pressures running a little on the high side. Again be a Jehovah witness we are limited in terms of giving blood. Primary service is caring for most of his issues. Exam (Progress Note) - Constitutional Vitals: Period Temp Pulse Resp BP Sys/Crespo Pulse Ox Last 24 Hr 97.2 F-97.9 F 72-99 16-22 144-193/67-85 93-100 Exam: General: Patient is chronically ill-appearing as well as having some agonal respirations this morning. He does not obey commands. Does make brief eye contact. HEENT: normocephalic, atraumatic. Mucous membranes moist. No jaundice noted. Conjunctiva moist and clear, sclerae anicteric Neck: No obvious JVD/HJR, no thyromegaly or lymphadenopathy noted. No carotid bruit appreciated Cardiac: Regular rhythm and rate. Slight 1/6 systolic murmur at the precordium and apex. No rub, or gallop. Lungs: He is having some shallow almost agonal type respirations. Some accessory muscle use for air movement. Has slight crackles and rhonchi but no gross wheezing. Supplemental oxygen via 100% nonrebreather mask. Abdomen: Protuberant and soft, bowel sounds hypoactive. Nontender and nondistended. PEG intact. No abdominal bruit or thrill noted. No masses noted. Musculoskeletal: No fluid collection. Decreased range of motion is noted. Extremities: No clubbing, cyanosis noted. [Trace bilateral lower extremity edema. Soft boots to lower extremities.] Upper extremity pulses 2+. Difficult to palpate lower extremity pulses but warm to touch multiple amputation of toes. Mild petechiae bilateral upper extremities. Neuro: Right hand contracture noted. He makes eye contact when spoken to. No essential tremor is appreciated. He does not communicate or interact. Psychiatric: The patient really does not respond to stimuli other than the noted eye contact. This may relate to his dementia as well as his severe underlying medical issues. Result/EKG - Labs CBC & BMP: 10/07/16 04:19 10/07/16 04:20 Lab Results: I have reviewed the past 24 hour labs Labs: Laboratory Results - last 24 hr 10/06/16 10/06/16 10/06/16 03:04 07:18 12:01 WBC RBC Hgb Hct MCV MCH MCHC RDW Plt Count MPV Neut % (Auto) Lymph % (Auto) [place] % (Auto) Eos % (Auto) Baso % (Auto) Neut # (Auto) Lymph # (Auto) [place] # (Auto) Eos # (Auto) Baso # (Auto) Total Counted Immature Gran % Nucleated RBC % Immature Gran # Segmented Neutrophils Lymphocytes Monocytes Eosinophils Nucleated RBCs # Platelet Estimate Hypochromasia Microcytosis Morphology Comment Haptoglobin Sodium Potassium Chloride Carbon Dioxide Anion Gap BUN Creatinine GFR Calculation BUN/Creatinine Ratio Glucose POC Glucose 200 H 201 H Calculated Osmolality Calcium Magnesium Iron 41 L TIBC 187 L % Saturation 21.9 Lactate Dehydrogenase Total Creatine Kinase LOKI (IgG-AHG) LOKI, Polyspecific 10/06/16 10/06/16 10/07/16 15:26 18:22 00:04 WBC RBC Hgb Hct MCV MCH MCHC RDW Plt Count MPV Neut % (Auto) Lymph % (Auto) [place] % (Auto) Eos % (Auto) Baso % (Auto) Neut # (Auto) Lymph # (Auto) [place] # (Auto) Eos # (Auto) Baso # (Auto) Total Counted Immature Gran % Nucleated RBC % Immature Gran # Segmented Neutrophils Lymphocytes Monocytes Eosinophils Nucleated RBCs # Platelet Estimate Hypochromasia Microcytosis Morphology Comment Haptoglobin Sodium Potassium Chloride Carbon Dioxide Anion Gap BUN Creatinine GFR Calculation BUN/Creatinine Ratio Glucose POC Glucose 196 H 141 H 185 H Calculated Osmolality Calcium Magnesium Iron TIBC % Saturation Lactate Dehydrogenase Total Creatine Kinase LOKI (IgG-AHG) LOKI, Polyspecific 10/07/16 10/07/16 10/07/16 04:19 04:19 04:19 WBC 11.5 RBC 1.77 L Hgb 5.4 L* Hct 17.6 L* MCV 99.4 MCH 31 MCHC 30.7 L RDW 20.8 H Plt Count 141 MPV 13.5 H Neut % (Auto) 82.7 H Lymph % (Auto) 3.2 L [place] % (Auto) 4.6 Eos % (Auto) 9.0 Baso % (Auto) 0.0 Neut # (Auto) 9.5 H Lymph # (Auto) 0.4 L [place] # (Auto) 0.5 Eos # (Auto) 1.0 H Baso # (Auto) 0.0 Total Counted 100 Immature Gran % 0.5 Nucleated RBC % 0.0 Immature Gran # 0.06 Segmented Neutrophils 89 H Lymphocytes 3 L Monocytes 1 L Eosinophils 7 Nucleated RBCs # 0.00 Platelet Estimate Adequate Hypochromasia 2+ Microcytosis 2+ Morphology Comment Haptoglobin 243.0 H Sodium Potassium Chloride Carbon Dioxide Anion Gap BUN Creatinine GFR Calculation BUN/Creatinine Ratio Glucose POC Glucose Calculated Osmolality Calcium Magnesium Iron 58 L TIBC 233 L % Saturation 24.9 Lactate Dehydrogenase 259 H Total Creatine Kinase 26 L D LOKI (IgG-AHG) Negative LOKI, Polyspecific Negative 10/07/16 10/07/16 04:20 06:25 WBC RBC Hgb Hct MCV MCH MCHC RDW Plt Count MPV Neut % (Auto) Lymph % (Auto) [place] % (Auto) Eos % (Auto) Baso % (Auto) Neut # (Auto) Lymph # (Auto) [place] # (Auto) Eos # (Auto) Baso # (Auto) Total Counted Immature Gran % Nucleated RBC % Immature Gran # Segmented Neutrophils Lymphocytes Monocytes Eosinophils Nucleated RBCs # Platelet Estimate Hypochromasia Microcytosis Morphology Comment Haptoglobin Sodium 138 Potassium 5.9 H Chloride 96 L Carbon Dioxide 31 Anion Gap 16.9 H BUN 112 H Creatinine 3.20 H GFR Calculation 22 BUN/Creatinine Ratio 35.00 H Glucose 148 H POC Glucose 210 H Calculated Osmolality 313.7 H Calcium 8.5 Magnesium 3.1 H Iron TIBC % Saturation Lactate Dehydrogenase Total Creatine Kinase LOKI (IgG-AHG) LOKI, Polyspecific - Impressions Impressions: Telemetry with sinus rhythm and normal rates.
[2016-10-07] MEDS ORDERED: SODIUM POLYSTYRENE SULFATE 15 GM/60 ML BOTTLE PO ONE (07:30)
[2016-10-07 07:52] LABS: ABG Oxygen Saturation 98.9 % (95-100); ABG PCO2 51.1 MM HG (35-48); ABG PH 7.385 (7.35-7.45); ABG TCO2 29.4 MMOL/L (23-27)
--- NOTE | 2016-10-07 09:06 | Pulmonology Progress Note ---
Pulmonary - PN: Subj Interval history: Patient is a 61-year-old white man that is very debilitated. 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 He has chronic renal failure with anemia chronic disease and does not want blood because the family is Scientologist. He now has congestive heart failure and possible pneumonia. Over the weekend he has done okay but still requires oxygen. He still cannot cough secretions very well. He still has a lot of chest congestion through the night. He is still requiring a lot of oxygen and is short of breath at times. His chest x-ray still shows considerable right lung infiltrate. Will plan a therapeutic bronchoscopy today. Exam (Progress Note) - Constitutional Vitals: Period Temp Pulse Resp BP Sys/Crespo Pulse Ox Last 24 Hr 97.2 F-97.9 F 72-99 18-24 144-184/67-85 87-100 Exam: General appearance: the patient is awake and mildly tachypneic on oxygen. - Head Head exam: Present: normal inspection, normocephalic - Eye Eye exam: Present: EOMI. Absent: scleral icterus Pupils: Present: JOVANY - ENT ENT exam: Present: other (He has better coloring.) - Neck Neck exam: Present: normal inspection. Absent: lymphadenopathy, thyromegaly - Respiratory Respiratory exam: Present: He has equal breath sounds bilaterally but he does have bilateral rhonchi and rales. He still cannot move air very well and is quite congested. - Cardiovascular Cardiovascular exam: Present: regular rate and rhythm, systolic murmur (He does have a soft murmur). Absent: gallop - GI/Abdominal GI/Abdominal exam: Present: hypoactive bowel sounds, soft. Absent: organomegaly , tenderness - Extremities Exam Extremities exam: Present: other (Multiple toe amputations). Absent: calf tenderness, edema - Neurological Exam Neurological exam: Present: other (He will look around but really cannot communicate much.) - Psychiatric Psychiatric exam: Absent: anxious - Skin Skin exam: Present: warm, pallor Results - Labs CBC & BMP: 10/07/16 04:19 10/07/16 04:20 - Diagnostic Findings Procedure: Chest x-ray: image reviewed by me, report reviewed by me (Chest x- ray shows considerable infiltrate in the right lung.) Assessment and Plan (1) History of multiple strokes Status: Chronic Assessment and plan: The patient has had multiple strokes and is bedridden. He is extremely debilitated. His neurological status is about at baseline. He looks about the same today. Current Visit: No (2) Dementia Status: Chronic Assessment and plan: Patient will arouse but is not very alert. He does not communicate very well. He may be close to baseline. Current Visit: No (3) Diabetes mellitus Status: Chronic Assessment and plan: His glucoses will be monitored. His glucose was 210 this morning. Current Visit: No Qualifiers: Diabetes mellitus type: type 2 Diabetes mellitus complication detail: with other kidney complication (4) Hyperkalemia Status: Acute Assessment and plan: The patient has a potassium of 5.9 today. Current Visit: No (5) Leg ulcer Status: Acute Assessment and plan: The patient has had bilateral leg ulcers. Current Visit: No (6) CKD stage 4 due to type 2 diabetes mellitus Problem details: No indication for renal replacement therapy. Pt is not a good chronic dialysis candidate due to comorbidities. Status: Acute Assessment and plan: The patient has chronic renal failure and his creatinine is 3.2 today. Current Visit: No (7) Chronic respiratory failure Status: Acute Assessment and plan: The patient likely has aspiration pneumonia and chronic respiratory problems. He has very poor pulmonary toilet. He is getting antibiotics for pneumonia. Some of this is probably volume overload. He has labored breathing at times and drops his O2 saturation easily. His chest x-ray still shows considerable infiltrate in the right lung more than the left. Will try therapeutic bronchoscopy today. Current Visit: Yes (8) Anemia, chronic disease Status: Acute Assessment and plan: The patient has chronic anemia and now his hemoglobin is down to 5.4. Current Visit: Yes (9) Congestive heart failure Status: Acute Assessment and plan: Patient's chest x-ray looks like pulmonary edema. He did diurese him yesterday. His chest x-ray is better and his oxygenation is stable. He probably does have a component of heart failure that is better. His fluids have been stopped but his chest x-ray is about the same. Current Visit: Yes
[2016-10-07] MEDS: amLODIPine 5 MG TABLET PO SCH ×2 (09:15→21:27)
[2016-10-07] MEDS: ISOSORBIDE MONONITRATE 30 MG TABLET PO SCH (09:15)
[2016-10-07] MEDS: DILTIAZEM 60 MG TABLET PO SCH ×4 (09:15→21:25)
[2016-10-07] MEDS: FOLIC ACID 0.4 MG TABLET PO SCH ×2 (09:16→21:26)
[2016-10-07] MEDS: SERTRALINE 25 MG TABLET PO SCH (09:16)
[2016-10-07] MEDS: METOPROLOL TARTRATE 50 MG TABLET PO SCH ×3 (09:16→21:26)
[2016-10-07] MEDS: TAMSULOSIN 0.4 MG CAPSULE PO SCH (09:16)
[2016-10-07] MEDS: FINASTERIDE 5 MG TABLET PO SCH (09:17)
[2016-10-07] MEDS: PIPERACILLIN/TAZOBACTAM 3,375 MG in SODIUM CHLORIDE 0.9% 100 ML IV SCH (09:17)
[2016-10-07] MEDS: BACITRACIN OINT 0.9 GM PACK TOP SCH (09:17)
[2016-10-07] MEDS: CYANOCOBALAMIN 500 MCG TABLET PO SCH ×2 (09:17→21:26)
[2016-10-07] MEDS: DESITIN 4OZ/NYSTATIN 15 GRAM MIXTURE PASTE TOP SCH ×2 (09:17→21:28)
[2016-10-07] MEDS: PANTOPRAZOLE 40 MG TABLET PO SCH ×2 (09:17→12:52)
[2016-10-07] MEDS: AMIODARONE 200 MG TABLET PO SCH ×2 (09:17→16:10)
--- NOTE | 2016-10-07 09:34 | Nephrology Progress Note ---
Nephrology - PN: Subj Interval history: Pt more alert today. Denies SOB/pain vocally. Exam (PN)-Nephrology - Vital Signs Vital signs: Period Temp Pulse Resp BP Sys/Crespo Pulse Ox Last 24 Hr 97.2 F-97.9 F 72-99 18-24 144-184/67-85 87-100 - General Appearance General appearance: well-developed, chronically ill EENT: ATNC, PERRL, mucous membranes moist, hearing intact, vision intact Neck: no JVD, no thyromegaly Respiratory: no kyphosis, clear Cardiology: no murmurs, no rub, no edema Gastrointestinal: normoactive bowel sounds, no tenderness Integumentary: no rash, warm and dry Neurologic: no asterixis, hemiplegic Musculoskeletal: no deformities, no erythema, no cyanosis - Lab 10/07/16 04:19 10/07/16 04:20 Most recent lab results ABG pH 7.385 (7.35-7.45) 10/07/16 07:45 ABG pCO2 51.1 MM HG (35-48) H 10/07/16 07:45 ABG pO2 104.0 MM HG (80-95) H 10/07/16 07:45 ABG HCO3 29.0 MMOL/L (20-26) H 10/07/16 07:45 ABG O2 Saturation 98.9 % (95-100) 10/07/16 07:45 Calcium 8.5 MG/DL (8.5-10.1) 10/07/16 04:20 Phosphorus 5.8 MG/DL (2.5-4.9) H 10/06/16 03:11 Magnesium 3.1 MG/DL (1.8-2.4) H 10/07/16 04:20 Assessment and Plan (1) Hyperkalemia Problem details: No identified source of potassium increase. LDH slightly elevated, ? hemolysis. Status: Acute Assessment and plan: Agree with kayexalate x 1. Consult dietary to change feeds to reduce K+ and PO4. Current Visit: No (2) CKD stage 4 due to type 2 diabetes mellitus Problem details: No indication for renal replacement therapy. Pt is not a good chronic dialysis candidate due to comorbidities. Status: Acute Current Visit : No (3) Dementia Status: Chronic Current Visit: No (4) Anemia Status: Chronic Assessment and plan: Iron studies c/w anemia of chronic disease. Adequate stores for erythropoiesis. Continue Epogen TIW. Stool for OB x 3 not resulted. Suspect occult blood loss. Current Visit: No Qualifiers: Anemia type: iron deficiency (5) Sequela of cerebrovascular accident Status: Acute Current Visit: Yes
--- NOTE | 2016-10-07 12:53 | Hospitalist Progress Note ---
Assessment and Plan (1) Anemia due to chronic kidney disease Status: Acute Assessment and plan: Hemoglobin stable at 5 Given dose of epogen yesterday Pt is a Sabianist and does not accept blood products Current Visit: Yes (2) Patient is Episcopal Status: Chronic Current Visit: Yes (3) Aspiration pneumonia Status: Acute Assessment and plan: On levaquin and zosyn Current Visit: Yes (4) Sequela of cerebrovascular accident Status: Acute Current Visit: Yes (5) History of abdominal aortic aneurysm (AAA) Status: Chronic Assessment and plan: Family declines intervention Current Visit: Yes (6) Acute on chronic renal failure Status: Acute Current Visit: No (7) Hyperkalemia Problem details: No identified source of potassium increase. LDH slightly elevated, ? hemolysis. Status: Acute Assessment and plan: Given kayex Current Visit: No Hospitalist: Subjective Interval history: Early this morning a rapid response was called due to patient with difficulty breathing. On my arrival, patient appeared to be at his current baseline, on non -rebreather. He denies difficulty breathing and chest pain to me. Exam - Constitutional Vitals: Period Temp Pulse Resp BP Sys/Crespo Pulse Ox Last 24 Hr 97.2 F-97.9 F 72-87 18-25 145-182/67-85 87-100 General appearance: over weight - Head Head exam: Present: normocephalic, atraumatic - Eye Eye exam: Present: EOMI Pupils: Present: JOVANY - ENT ENT exam: Present: normal exam - Neck Neck exam: Present: normal inspection - Respiratory Respiratory exam: Present: decreased breath sounds. Absent: wheezes - Cardiovascular Cardiovascular exam: Present: regular rate and rhythm - GI/Abdominal GI/Abdominal exam: Present: normal bowel sounds, soft. Absent: tenderness - Extremities Exam Extremities exam: Present: normal inspection - Back Exam Back exam: Present: normal inspection - Neurological Exam Neurological exam: Present: alert - Psychiatric Psychiatric exam: Present: normal affect, normal mood - Skin Skin exam: Present: warm, intact Results - Labs CBC & BMP: 10/07/16 04:19 10/07/16 04:20
[2016-10-07] MEDS ORDERED: MEPERIDINE 50 MG/1 ML VIAL IM ONE (13:00)
[2016-10-07] MEDS ORDERED: PROMETHAZINE 25 MG/1 ML VIAL IM ONE (13:00)
--- NOTE | 2016-10-07 13:51 | Operative Note ---
Date of procedure: 10/07/16 Pre-op diagnosis: Bilateral infiltrates Post-op diagnosis: same Procedure: The patient is a 61-year-old multi-infarct dementia. He has had bilateral infiltrates and a difficult time clearing secretions. Therapeutic bronchoscopy will be done to clear airways. Patient was prepped in his room and was given Demerol 35 mg and Phenergan 25 mg IM for preop. Procedure: The fiberoptic bronchoscope was passed transnasally through the vocal cords into the lungs. The bronchopulmonary segments were identified and specimens obtained. Findings: There is a small amount of secretions in the hypopharynx. The vocal cords close normally. The trachea is open. The main bronchi are open. There is some thick white secretions and mucous plugs seen bilaterally that were washed and cleared. The right upper lobe and right lower lobe were irrigated and washings were sent for culture. He coughed fairly well and actually tolerated the procedure well. Impression: Bilateral infiltrates with some retained secretions in a patient with very poor pulmonary toilet. Plan: We will continue antibiotics and respiratory therapy. Anesthesia: local Surgeon / Physician: Brett Lord Estimated blood loss: none Specimens: other (Washings were sent for culture) Condition: stable Disposition: floor Results - Labs CBC & BMP: 10/07/16 04:19 10/07/16 04:20 Discharge Plan - Discharge Medications No Action Sertraline [Zoloft] 25 mg PO DAILY Pregabalin [Lyrica] 225 mg PO BID Metoprolol Tartrate 50 mg PO TID Methocarbamol 500 mg PO BID PRN PRN Reason: Pain Tamsulosin [Flomax] 0.4 mg PO DAILY Finasteride 5 mg PO DAILY cloNIDine TAB [Catapres Tab] 0.1 mg PO Q4H Aspirin EC Tab 81 mg PO QPM Valsartan 80 mg PO QID Pantoprazole Tab [Protonix Tab] 40 mg PO DAILY Simvastatin 20 mg PO BEDTIME Albuterol/Ipratropium Neb [Duoneb] 3 ml RESP TX RT Q4H #120 vial Folic Acid Tab 0.4 mg PO BID #60 tablet Albuterol/Ipratropium Neb [Duoneb] 3 ml RESP TX RT Q4H cloNIDine TAB [Catapres Tab] 0.1 mg PO Q4H Cyanocobalamin Tab [Vitamin B12 Tab] 500 mcg PO BID Ferrous Sulfate Tab [Feosol Original Tab] 325 mg PO BID Finasteride [Proscar] 5 mg PO DAILY Folic Acid Tab 0.4 mg PO BID Isosorbide Mononitrate [Imdur] 30 mg PO DAILY Methocarbamol Tab [Robaxin Tab] 500 mg PO BID PRN PRN Reason: Pain Pantoprazole Tab [Protonix Tab] 40 mg PO DAILY Pregabalin [Lyrica] 225 mg PO BID Sertraline [Zoloft] 25 mg PO DAILY Simvastatin 20 mg PO QPM Valsartan 80 mg PO QID Isosorbide Mononitrate [Imdur] 30 mg PO DAILY Ferrous Sulfate 325 mg PO BID Acetaminophen Tab [Tylenol Tab] 325 mg PO Q4H PRN tablet PRN Reason: fever, headache/body aches Cyanocobalamin Tab [Vitamin B12 Tab] 500 mcg PO BID #60 tablet Insulin Glargine [Lantus] 15 unit SUBCUT BEDTIME #1 packet Acetaminophen Tab [Tylenol Tab] 325 mg PO Q4H PRN PRN Reason: Pain Aspirin EC Tab 81 mg PO QPM Insulin Glargine [Lantus] 15 unit SUBCUT BEDTIME Metoprolol Tartrate Tab [Lopressor Tab] 50 mg PO TID Tamsulosin [Flomax] 0.4 mg PO DAILY - Follow Up or Referral - Forms/Instructions
--- NOTE | 2016-10-07 16:03 | Infectious Disease Consult ---
Assessment and Plan (1) Aspiration pneumonia Status: Acute Assessment and plan: ESBL E. coli isolated on 2 different occasions in the past from the sputum. Recommendations: 1. Discontinue levofloxacin and Zosyn 2. Stop meropenem, renally dosed at 500 mg every 12 hours 3. Follow-up sputum culture results and adjust antibiotics accordingly Case discussed in detail with patient's sister at bedside. Explained to her that the patient will probably continue to have recurring pneumonia due to aspiration. He has had strokes in the past and is unable to control his airway. Further he has been on acid lowering medication for a very long time and I informed her that patients on such medications are at higher risk for pneumonia and why this was so. Thank you very much for the consult. Will follow. Current Visit: Yes (2) Sequela of cerebrovascular accident Status: Acute Current Visit: Yes (3) Acute on chronic renal failure Status: Acute Current Visit: No (4) Dementia Status: Chronic Current Visit: No (5) Diabetes mellitus Status: Chronic Current Visit: No Qualifiers: Diabetes mellitus type: type 2 Diabetes mellitus complication detail: with other kidney complication (6) Hypertension Problem details: Increase clonidine to 0.1mg per tube TID. Continue coreg 25 bid , norvasc 5mg daily, change lasix to 80mg bid via tube, isordil 40mg tid. This should be his discharge antihypertensive regimen. Status: Chronic Current Visit: No Qualifiers: Hypertension type: essential hypertension Qualified Code(s): I10 - Essential (primary) hypertension (7) Positive blood culture Status: Acute Assessment and plan: BILL hominis in 1 of 2 sets of blood cultures likely contamination. Patient is a hard stick. Current Visit: Yes History of Present Illness Chief complaint: Recurrent pneumonia History of present illness: Mr. Kim is a 61 year old male who is bedbound following several strokes almost 10 years ago. He is cared for at home by his sister. He has been having recurring episodes of pneumonia so far this year and was actually discharged from hospital week before this current admission. He was sent in because of low oxygen saturation when home health came to check on him. He really was not having significant shortness of breath. Since admission has been noted to have significant infiltrates bilaterally on chest x-ray worse than when he was last here. No report of fever at home and he has not had leukocytosis. He has been on antibiotics for pneumonia. In the past in reviewing his records he has had ESBL isolated from the sputum on 2 different occasions. With these recurring pneumonias his sister wants an explanation as to why. Home Medications Medication Instructions Recorded Confirmed Type Aspirin EC Tab 81 mg PO QPM 08/06/16 09/05/16 History Ferrous Sulfate 325 mg PO BID 08/06/16 09/05/16 History Finasteride 5 mg PO DAILY 08/06/16 09/05/16 History Isosorbide Mononitrate [Imdur] 30 mg PO DAILY 08/06/16 09/05/16 History Methocarbamol 500 mg PO BID PRN 08/06/16 09/05/16 History Metoprolol Tartrate 50 mg PO TID 08/06/16 09/05/16 History Pregabalin [Lyrica] 225 mg PO BID 08/06/16 09/05/16 History Sertraline [Zoloft] 25 mg PO DAILY 08/06/16 09/05/16 History Tamsulosin [Flomax] 0.4 mg PO DAILY 08/06/16 09/05/16 History Valsartan 80 mg PO QID 08/06/16 09/05/16 History cloNIDine TAB [Catapres Tab] 0.1 mg PO Q4H 08/06/16 09/05/16 History Pantoprazole Tab [Protonix Tab] 40 mg PO DAILY 09/05/16 09/05/16 History Simvastatin 20 mg PO BEDTIME 09/05/16 09/05/16 History Acetaminophen Tab [Tylenol Tab] 325 mg PO Q4H PRN tablet 09/23/16 Rx Albuterol/Ipratropium Neb [Duoneb] 3 ml RESP TX RT Q4H #120 vial 09/23/16 Rx Cyanocobalamin Tab [Vitamin B12 500 mcg PO BID #60 tablet 09/23/16 Rx Tab] Folic Acid Tab 0.4 mg PO BID #60 tablet 09/23/16 Rx Insulin Glargine [Lantus] 15 unit SUBCUT BEDTIME #1 packet 09/23/16 Rx Acetaminophen Tab [Tylenol Tab] 325 mg PO Q4H PRN 09/30/16 09/30/16 History Albuterol/Ipratropium Neb [Duoneb] 3 ml RESP TX RT Q4H 09/30/16 09/30/16 History Aspirin EC Tab 81 mg PO QPM 09/30/16 09/30/16 History Cyanocobalamin Tab [Vitamin B12 500 mcg PO BID 09/30/16 09/30/16 History Tab] Ferrous Sulfate Tab [Feosol 325 mg PO BID 09/30/16 09/30/16 History Original Tab] Finasteride [Proscar] 5 mg PO DAILY 09/30/16 09/30/16 History Folic Acid Tab 0.4 mg PO BID 09/30/16 09/30/16 History Insulin Glargine [Lantus] 15 unit SUBCUT BEDTIME 09/30/16 09/30/16 History Isosorbide Mononitrate [Imdur] 30 mg PO DAILY 09/30/16 09/30/16 History Methocarbamol Tab [Robaxin Tab] 500 mg PO BID PRN 09/30/16 09/30/16 History Metoprolol Tartrate Tab [Lopressor 50 mg PO TID 09/30/16 09/30/16 History Tab] Pantoprazole Tab [Protonix Tab] 40 mg PO DAILY 09/30/16 09/30/16 History Pregabalin [Lyrica] 225 mg PO BID 09/30/16 09/30/16 History Sertraline [Zoloft] 25 mg PO DAILY 09/30/16 09/30/16 History Simvastatin 20 mg PO QPM 09/30/16 09/30/16 History Tamsulosin [Flomax] 0.4 mg PO DAILY 09/30/16 09/30/16 History Valsartan 80 mg PO QID 09/30/16 09/30/16 History cloNIDine TAB [Catapres Tab] 0.1 mg PO Q4H 09/30/16 09/30/16 History Allergies Allergy/AdvReac Type Severity Reaction Status Date / Time No Known Allergies Allergy Verified 09/05/16 15:45 ROS unobtainable: due to mental status Medical,Surgical,& Family Hx - Medical History Cardio: History of: Aneurysm, Hypertension No history of: CAD, NV Psychological: History of: Anxiety Disorders, Depression Neurology: History of: Cerebral Hemorrhage, Cerebrovascular Accident Endocrine: History of: Diabetes Mellitus (NIDDM) Rheumatology: History of;: Rheumatoid Arthritis Respiratory: History of: Pneumonia Renal: History of: Renal Problems (decreased kidney function) Genitourinary: History of: Prostate Problems Gastrointestinal: History of: GERD, GI Problems (triple a) Hematology: History of: Anemia - Surgical History Neurologic Surgeries: Surgical HX of: Cerebral Hemorrhage - Family History Family History: Reports;: Family Diabetes, Family Heart Disease, Family Hypertension - Social History Smoking Status: Never smoker Frequency of Alcohol Use: None Type of Drug Use: None Infectious Disease Exam H&P - Constitutional Vitals: Vital Signs Temp Pulse Resp BP Pulse Ox 97.1 F L 98 H 18 176/80 97 10/07/16 12:00 10/07/16 13:45 10/07/16 12:00 10/07/16 13:45 10/07/16 13:45 Intake and Output 10/07/16 10/07/16 10/07/16 07:59 15:59 23:59 Intake Total 460 / 460 45 / 45 Balance 460 / 460 45 / 45 Intake: IV 100 / 100 Zosyn 3,375 mg In Ns 100 100 / 100 ml @ 25 mls/hr IV Q12H JOSE LUIS Rx#:[id number] Tube Feeding Flush 360 / 360 45 / 45 Other: Tube Feeding 360 45 Voiding Method Brief # Voids 1 1 Exam: General: Patient chronically ill looking, poorly responsive, apparently was just sedated for bronchoscopy HEENT: Mucous membranes extremely pale but moist, anicteric acyanotic, JOVANY Neck: Supple, no thyroid gland enlargement, no lymphadenopathy Respiratory system: Breath sounds vesicular, no crepitations or wheezes heard Cardiovascular: Normal S1 and S2, no murmurs appreciated Abdomen: PEG tube present, normal bowel sounds, soft nontender throughout, no organomegaly or mass Genitourinary: No suprapubic pain or bladder distention Extremities: Generalized edema present, he is missing several toes on both feet Skin: Healing excoriations to dorsum of feet Reports - Labs CBC & BMP: 10/07/16 04:19 10/07/16 04:20 Labs: Laboratory Results - last 24 hr 10/06/16 10/07/16 10/07/16 18:22 00:04 04:19 WBC 11.5 RBC 1.77 L Hgb 5.4 L* Hct 17.6 L* MCV 99.4 MCH 31 MCHC 30.7 L RDW 20.8 H Plt Count 141 MPV 13.5 H Neut % (Auto) 82.7 H Lymph % (Auto) 3.2 L Bland % (Auto) 4.6 Eos % (Auto) 9.0 Baso % (Auto) 0.0 Neut # (Auto) 9.5 H Lymph # (Auto) 0.4 L Bland # (Auto) 0.5 Eos # (Auto) 1.0 H Baso # (Auto) 0.0 Total Counted 100 Immature Gran % 0.5 Nucleated RBC % 0.0 Immature Gran # 0.06 Segmented Neutrophils 89 H Lymphocytes 3 L Monocytes 1 L Eosinophils 7 Nucleated RBCs # 0.00 Platelet Estimate Adequate Hypochromasia 2+ Microcytosis 2+ Morphology Comment Haptoglobin ABG pH ABG pCO2 ABG pO2 ABG HCO3 ABG Total CO2 ABG O2 Saturation ABG Base Excess Sodium Potassium Chloride Carbon Dioxide Anion Gap BUN Creatinine GFR Calculation BUN/Creatinine Ratio Glucose POC Glucose 141 H 185 H Calculated Osmolality Calcium Magnesium Iron TIBC % Saturation Lactate Dehydrogenase Total Creatine Kinase LOKI (IgG-AHG) LOKI, Polyspecific 10/07/16 10/07/16 10/07/16 04:19 04:19 04:20 WBC RBC Hgb Hct MCV MCH MCHC RDW Plt Count MPV Neut % (Auto) Lymph % (Auto) Bland % (Auto) Eos % (Auto) Baso % (Auto) Neut # (Auto) Lymph # (Auto) Bland # (Auto) Eos # (Auto) Baso # (Auto) Total Counted Immature Gran % Nucleated RBC % Immature Gran # Segmented Neutrophils Lymphocytes Monocytes Eosinophils Nucleated RBCs # Platelet Estimate Hypochromasia Microcytosis Morphology Comment Haptoglobin 243.0 H ABG pH ABG pCO2 ABG pO2 ABG HCO3 ABG Total CO2 ABG O2 Saturation ABG Base Excess Sodium 138 Potassium 5.9 H Chloride 96 L Carbon Dioxide 31 Anion Gap 16.9 H BUN 112 H Creatinine 3.20 H GFR Calculation 22 BUN/Creatinine Ratio 35.00 H Glucose 148 H POC Glucose Calculated Osmolality 313.7 H Calcium 8.5 Magnesium 3.1 H Iron 58 L TIBC 233 L % Saturation 24.9 Lactate Dehydrogenase 259 H Total Creatine Kinase 26 L D LOKI (IgG-AHG) Negative LOKI, Polyspecific Negative 10/07/16 10/07/16 10/07/16 06:25 07:45 11:36 WBC RBC Hgb Hct MCV MCH MCHC RDW Plt Count MPV Neut % (Auto) Lymph % (Auto) Bland % (Auto) Eos % (Auto) Baso % (Auto) Neut # (Auto) Lymph # (Auto) Bland # (Auto) Eos # (Auto) Baso # (Auto) Total Counted Immature Gran % Nucleated RBC % Immature Gran # Segmented Neutrophils Lymphocytes Monocytes Eosinophils Nucleated RBCs # Platelet Estimate Hypochromasia Microcytosis Morphology Comment Haptoglobin ABG pH 7.385 ABG pCO2 51.1 H ABG pO2 104.0 H ABG HCO3 29.0 H ABG Total CO2 29.4 H ABG O2 Saturation 98.9 ABG Base Excess 5.0 H Sodium Potassium Chloride Carbon Dioxide Anion Gap BUN Creatinine GFR Calculation BUN/Creatinine Ratio Glucose POC Glucose 210 H 237 H Calculated Osmolality Calcium Magnesium Iron TIBC % Saturation Lactate Dehydrogenase Total Creatine Kinase LOKI (IgG-AHG) LOKI, Polyspecific 10/07/16 15:58 WBC RBC Hgb Hct MCV MCH MCHC RDW Plt Count MPV Neut % (Auto) Lymph % (Auto) Bland % (Auto) Eos % (Auto) Baso % (Auto) Neut # (Auto) Lymph # (Auto) Bland # (Auto) Eos # (Auto) Baso # (Auto) Total Counted Immature Gran % Nucleated RBC % Immature Gran # Segmented Neutrophils Lymphocytes Monocytes Eosinophils Nucleated RBCs # Platelet Estimate Hypochromasia Microcytosis Morphology Comment Haptoglobin ABG pH ABG pCO2 ABG pO2 ABG HCO3 ABG Total CO2 ABG O2 Saturation ABG Base Excess Sodium Potassium Chloride Carbon Dioxide Anion Gap BUN Creatinine GFR Calculation BUN/Creatinine Ratio Glucose POC Glucose 167 H Calculated Osmolality Calcium Magnesium Iron TIBC % Saturation Lactate Dehydrogenase Total Creatine Kinase LOKI (IgG-AHG) LOKI, Polyspecific - Reports Microbiology: Microbiology 10/07/16 Unknown Gram Stain - Final Bronchial Washings - Diagnostic Findings Procedure: Chest x-ray: image reviewed by me, report reviewed by me (Severe opacifications bilaterally left more than right, almost complete whiteout of left lung)
[2016-10-07] MEDS: LANSOPRAZOLE ODT 30 MG TABLET PO SCH ×2 (16:09→21:26)
[2016-10-07] MEDS: MEROPENEM 500 MG in SODIUM CHLORIDE 0.9% 100 ML IV SCH (17:41)
[2016-10-07] MEDS: INSULIN GLARGINE 100 UNIT/ML SUBCUT SCH (21:22)
[2016-10-07] MEDS: ASPIRIN CHEW 81 MG TABLET PO SCH (21:26)
[2016-10-08] MEDS: ALBUTEROL 2.5 MG/3 ML NEB RESP TX SCH ×5 (00:05→19:00)
[2016-10-08] MEDS: ACETYLCYSTEINE 20% 800 MG/4 ML VIAL RESP TX SCH ×5 (00:09→19:00)
[2016-10-08] MEDS: INSULIN REGULAR 100 UNIT/ML SUBCUT SCH ×5 (01:23→23:41)
[2016-10-08 04:37] LABS: Calcium 9.2 MG/DL (8.5-10.1); Osmolality,Calculated 319.4 MOS/KG (273-304); Potassium 4.8 MMOL/L (3.5-5.1)
[2016-10-08] MEDS: MEROPENEM 500 MG in SODIUM CHLORIDE 0.9% 100 ML IV SCH ×2 (05:14→17:12)
--- NOTE | 2016-10-08 07:48 | EKG Report ---
Stationary ECG Study [facility] Test Date: 10/07/2016 6:56:09 AM Pat Name: YULIANA ROSE Department: Room: 220 Gender: M [employer]: [place] : 1955 Requested by: Jaylon Pete Order Number: [id number] Reading MD: FRED SHIELDS Intervals [place] Rate: 85 P: 55 ID: [id number] QRS: -2 QRSD: 130 T: 69 QT: 393 QTc: 436 Interpretive Statements SINUS RHYTHM ANTEROSEPTAL MYOCARDIAL INFARCTION, OLD LEFT BUNDLE BRANCH BLOCK Electronically Signed On 10-08-16 07:49:09 CDT by FRED SHIELDS [email or web address]
--- NOTE | 2016-10-08 08:36 | Pulmonology Progress Note ---
Pulmonary - PN: Subj Interval history: Patient is a 61-year-old white man that is very debilitated. 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 He has chronic renal failure with anemia chronic disease and does not want blood because the family is Tenriism. He now has congestive heart failure and possible pneumonia. He has continued to have some trouble clearing his secretions and with shortness of breath. He is still requiring fairly high FiO2. Yesterday we did a therapeutic bronchoscopy and he does seem to be breathing a little better. Otherwise he is about the same. He will open his eyes and look around but does not communicate. He is extremely debilitated. Exam (Progress Note) - Constitutional Vitals: Period Temp Pulse Resp BP Sys/Crespo Pulse Ox Last 24 Hr 97.1 F-98.2 F 75-98 16-28 157-199/72-84 87-99 Exam: General appearance: the patient is awake and mildly tachypneic on oxygen. He looks reasonably comfortable this morning. - Head Head exam: Present: normal inspection, normocephalic - Eye Eye exam: Present: EOMI. Absent: scleral icterus Pupils: Present: JOVANY - ENT ENT exam: Present: other (He has better coloring.) - Neck Neck exam: Present: normal inspection. Absent: lymphadenopathy, thyromegaly - Respiratory Respiratory exam: Present: He has equal breath sounds bilaterally but he does have bilateral rhonchi and rales. He is breathing a little better this morning. - Cardiovascular Cardiovascular exam: Present: regular rate and rhythm, systolic murmur (He does have a soft murmur). Absent: gallop - GI/Abdominal GI/Abdominal exam: Present: hypoactive bowel sounds, soft. Absent: organomegaly , tenderness - Extremities Exam Extremities exam: Present: other (Multiple toe amputations). Absent: calf tenderness, edema - Neurological Exam Neurological exam: Present: other (He will look around but really cannot communicate much.) - Psychiatric Psychiatric exam: Absent: anxious - Skin Skin exam: Present: warm, pallor Results - Labs CBC & BMP: 10/07/16 04:19 10/08/16 02:55 Assessment and Plan (1) History of multiple strokes Status: Chronic Assessment and plan: The patient has had multiple strokes and is bedridden. He is extremely debilitated. His neurological status is about at baseline. Current Visit: No (2) Dementia Status: Chronic Assessment and plan: Patient will arouse but is not very alert. He does not communicate very well. He may be close to baseline. Current Visit: No (3) Diabetes mellitus Status: Chronic Assessment and plan: His glucoses will be monitored. His glucose was 277 this morning. Current Visit: No Qualifiers: Diabetes mellitus type: type 2 Diabetes mellitus complication detail: with other kidney complication (4) Hyperkalemia Problem details: No identified source of potassium increase. LDH slightly elevated, ? hemolysis. Status: Acute Assessment and plan: The patient has a potassium of 4.8 today. Current Visit: No (5) Leg ulcer Status: Acute Assessment and plan: The patient has had bilateral leg ulcers. Current Visit: No (6) CKD stage 4 due to type 2 diabetes mellitus Problem details: No indication for renal replacement therapy. Pt is not a good chronic dialysis candidate due to comorbidities. Status: Acute Assessment and plan: The patient has chronic renal failure and his creatinine is 3.2 today. His renal function has been relatively stable. Current Visit: No (7) Chronic respiratory failure Status: Acute Assessment and plan: The patient likely has aspiration pneumonia and chronic respiratory problems. He has very poor pulmonary toilet. He did fairly well with a therapeutic bronchoscopy yesterday. His breathing is comfortable today. His antibiotics have been adjusted. Current Visit: Yes (8) Anemia, chronic disease Status: Acute Assessment and plan: The patient has chronic anemia and now his hemoglobin is down to 5.4. Current Visit: Yes (9) Congestive heart failure Status: Acute Assessment and plan: Patient's chest x-ray looks like pulmonary edema. He did diurese him yesterday. His chest x-ray is better and his oxygenation is stable. He probably does have a component of heart failure that is better. His fluids have been stopped but his chest x-ray is about the same. At present his volume status is fairly stable. Current Visit: Yes
--- NOTE | 2016-10-08 09:51 | Nephrology Progress Note ---
Nephrology - PN: Subj Interval history: Pt unresponsive. Creatinine unchanged. eGFR 22cc/min. Discussed case with sister at bedside. Exam (PN)-Nephrology - Vital Signs Vital signs: Period Temp Pulse Resp BP Sys/Crespo Pulse Ox Last 24 Hr 97.1 F-98.2 F 75-98 16-28 157-199/72-84 87-99 - General Appearance General appearance: well-developed, chronically ill EENT: ATNC, PERRL Neck: no JVD, no thyromegaly Respiratory: no kyphosis, clear Cardiology: no murmurs, no rub Gastrointestinal: normoactive bowel sounds, no tenderness Integumentary: no rash, warm and dry Neurologic: no asterixis Musculoskeletal: no deformities, no erythema - Lab 10/07/16 04:19 10/08/16 02:55 Most recent lab results ABG pH 7.385 (7.35-7.45) 10/07/16 07:45 ABG pCO2 51.1 MM HG (35-48) H 10/07/16 07:45 ABG pO2 104.0 MM HG (80-95) H 10/07/16 07:45 ABG HCO3 29.0 MMOL/L (20-26) H 10/07/16 07:45 ABG O2 Saturation 98.9 % (95-100) 10/07/16 07:45 Calcium 9.2 MG/DL (8.5-10.1) 10/08/16 02:55 Phosphorus 5.8 MG/DL (2.5-4.9) H 10/06/16 03:11 Magnesium 3.1 MG/DL (1.8-2.4) H 10/07/16 04:20 Assessment and Plan (1) CKD stage 4 due to type 2 diabetes mellitus Problem details: No indication for renal replacement therapy. Pt is not a good chronic dialysis candidate due to comorbidities. Status: Acute Current Visit : No (2) Dementia Status: Chronic Current Visit: No (3) Anemia Status: Chronic Assessment and plan: Iron studies c/w anemia of chronic disease. Adequate stores for erythropoiesis. Continue Epogen TIW. Stool for OB x 3 not resulted. Suspect occult blood loss. Current Visit: No (4) Sequela of cerebrovascular accident Status: Acute Current Visit: Yes
--- NOTE | 2016-10-08 10:57 | Hospitalist Progress Note ---
Assessment and Plan (1) Anemia due to chronic kidney disease Status: Acute Assessment and plan: Hemoglobin stable at 5 Given dose of epogen Pt is a Restorationist and does not accept blood products Current Visit: Yes (2) Patient is Uatsdin Status: Chronic Current Visit: Yes (3) Aspiration pneumonia Status: Acute Assessment and plan: ID consulted. Started on merrem Sputum cultures collected yesterday Current Visit: Yes (4) Sequela of cerebrovascular accident Status: Acute Current Visit: Yes (5) History of abdominal aortic aneurysm (AAA) Status: Chronic Assessment and plan: Family declines intervention Current Visit: Yes (6) Acute on chronic renal failure Status: Acute Current Visit: No (7) Hyperkalemia Problem details: No identified source of potassium increase. LDH slightly elevated, ? hemolysis. Status: Acute Assessment and plan: Given kayex Current Visit: No Hospitalist: Subjective Interval history: No acute events overnight. Respiratory status appears pretty much unchanged. Patient's sister is concerned because he has not been receiving his lyrica. She also reports that he has not had a bowel movement in 4 days. Exam - Constitutional Vitals: Period Temp Pulse Resp BP Sys/Crespo Pulse Ox Last 24 Hr 97.1 F-98.2 F 75-98 16-28 157-199/72-84 87-99 General appearance: over weight - Head Head exam: Present: normocephalic, atraumatic - Eye Eye exam: Present: EOMI Pupils: Present: JOVANY - ENT ENT exam: Present: normal exam - Neck Neck exam: Present: normal inspection - Respiratory Respiratory exam: Present: decreased breath sounds. Absent: wheezes - Cardiovascular Cardiovascular exam: Present: regular rate and rhythm - GI/Abdominal GI/Abdominal exam: Present: normal bowel sounds, soft. Absent: tenderness - Back Exam Back exam: Present: normal inspection - Neurological Exam Neurological exam: Present: alert - Psychiatric Psychiatric exam: Present: normal affect, normal mood - Skin Skin exam: Present: warm, intact Results - Labs CBC & BMP: 10/07/16 04:19 10/08/16 02:55
[2016-10-08] MEDS: TAMSULOSIN 0.4 MG CAPSULE PO SCH (11:00)
[2016-10-08] MEDS: BACITRACIN OINT 0.9 GM PACK TOP SCH (11:00)
[2016-10-08] MEDS: DILTIAZEM 60 MG TABLET PO SCH ×4 (11:01→21:48)
[2016-10-08] MEDS: CYANOCOBALAMIN 500 MCG TABLET PO SCH ×2 (11:01→21:49)
[2016-10-08] MEDS: amLODIPine 5 MG TABLET PO SCH ×2 (11:01→21:49)
[2016-10-08] MEDS: AMIODARONE 200 MG TABLET PO SCH (11:02)
[2016-10-08] MEDS: FOLIC ACID 0.4 MG TABLET PO SCH ×2 (11:02→21:48)
[2016-10-08] MEDS: FINASTERIDE 5 MG TABLET PO SCH (11:02)
[2016-10-08] MEDS: LANSOPRAZOLE ODT 30 MG TABLET PO SCH ×2 (11:03→21:49)
[2016-10-08] MEDS: SERTRALINE 25 MG TABLET PO SCH (11:03)
[2016-10-08] MEDS: DESITIN 4OZ/NYSTATIN 15 GRAM MIXTURE PASTE TOP SCH ×2 (11:05→21:53)
[2016-10-08] MEDS: ISOSORBIDE MONONITRATE 30 MG TABLET PO SCH (11:11)
[2016-10-08] MEDS: METOPROLOL TARTRATE 50 MG TABLET PO SCH ×3 (11:11→21:53)
[2016-10-08] MEDS: EPOETIN ALFA 10,000 UNIT/1 ML VIAL SUBCUT SCH (11:22)
--- NOTE | 2016-10-08 13:30 | Infectious Disease Progress ---
Assessment and Plan (1) Aspiration pneumonia Status: Acute Assessment and plan: ESBL E. coli isolated on 2 different occasions in the past from the sputum, And gram-negative rods growing once again currently. Recommendations: Continue meropenem, and will follow-up sputum culture results and adjust antibiotics accordingly Current Visit: Yes (2) Sequela of cerebrovascular accident Status: Acute Current Visit: Yes (3) Acute on chronic renal failure Status: Acute Current Visit: No (4) Dementia Status: Chronic Current Visit: No (5) Diabetes mellitus Status: Chronic Current Visit: No Qualifiers: Diabetes mellitus type: type 2 Diabetes mellitus complication detail: with other kidney complication (6) Hypertension Problem details: Increase clonidine to 0.1mg per tube TID. Continue coreg 25 bid , norvasc 5mg daily, change lasix to 80mg bid via tube, isordil 40mg tid. This should be his discharge antihypertensive regimen. Status: Chronic Current Visit: No Qualifiers: Hypertension type: essential hypertension Qualified Code(s): I10 - Essential (primary) hypertension (7) Positive blood culture Status: Acute Assessment and plan: BILL hominis in 1 of 2 sets of blood cultures likely contamination. Current Visit: Yes Infectious Disease - PN: Subj Interval history: Doing fair, more labored breathing when I saw him this morning. He has not had any fever. Infectious Disease Exam (PN) - Constitutional Vitals: Temp Pulse Resp BP Pulse Ox 98.1 F 108 H 28 H 170/83 91 L 10/08/16 12:28 10/08/16 12:28 10/08/16 12:28 10/08/16 12:28 10/08/16 12:28 General appearance: over weight Exam: General appearance: In moderate respiratory distress, awake but nonverbal - Eye Eye exam: Present: EOMI. no icterus Pupils: Present: JOVANY - Respiratory Respiratory exam: Breath sounds are distant, no added sounds appreciated - Cardiovascular Cardiovascular exam: regular rate and rhythm, no murmurs - GI/Abdominal GI/Abdominal exam: normal bowel sounds, soft, non-tender, no organomegaly or mass - Extremities Exam Extremities exam: Generalized edema - Skin Skin exam: excoriated rash to dorsum of feet Results - Labs CBC & BMP: 10/07/16 04:19 10/08/16 02:55 Lab Results: I have reviewed the past 24 hour labs (Gram-negative rods growing from BAL specimen)
--- NOTE | 2016-10-08 13:36 | XRay Report ---
KUB. Indication: Constipation. Comparison: None. A gastrostomy tube projects over the left upper quadrant. Splenic artery calcification is visible. There is moderate fecal material throughout the right colon. Gaseous distention of the left colon and sigmoid. No evidence of obstruction. No organomegaly. No abnormal calcifications. Degenerative changes of the spinal column and hips. Impression: Gaseous distention of bowel, increased right colonic fecal material. PROCEDURE INTERPRETED AT [facility] DEPARTMENT OF RADIOLOGY Final Report Signed by: Dr. Arlen Dangelo
--- NOTE | 2016-10-08 15:01 | Cardiology Progress Note ---
Everett Trinh Vanessa, RN, am scribing for, and in the presence of, Tino Gallegos MD 15:00. Assessment and Plan - Time spent with patient Time spent with patient: Greater than 30 minutes (1) Congestive heart failure Status: Acute Assessment and plan: At this time, this is fairly stable. Previously known preserved ejection fraction with some mild to moderate diastolic dysfunction. His current respiratory issues are secondary to what is felt to be due to a recurrent aspiration pneumonia. Certainly his low blood counts are contributing to all of this as well. This cannot be corrected secondary to his being a Jehovah witness. Current Visit: Yes (2) Anemia Status: Acute Assessment and plan: Significant anemia present. As he is a Jehovah witness, his holiness prevents him from receiving blood products. Current Visit: No (3) Atrial fibrillation with RVR Status: Resolved Assessment and plan: Patient did experience atrial fibrillation with RVR earlier in the course of his admission. He is presently in sinus rhythm. Episode of atrial fibrillation probably secondary to multiple other comorbidities. Current Visit: Yes (4) Aspiration pneumonia Status: Acute Assessment and plan: This is being treated by pulmonary medicine. Current Visit: Yes (5) Patient is Mandaen Status: Chronic Assessment and plan: Due to his holiness, however, he cannot take blood products. Current Visit: Yes (6) History of abdominal aortic aneurysm (AAA) Status: Chronic Assessment and plan: He has been followed in the past by an endovascular surgeon in [place]. Current Visit: Yes (7) CKD stage 4 due to type 2 diabetes mellitus Problem details: No indication for renal replacement therapy. Pt is not a good chronic dialysis candidate due to comorbidities. Status: Acute Assessment and plan: Current creatinine is 3.9 with a GFR of 22. BUN 110. Dr. Graham is also following. Current Visit: No (8) Bedbound patient Status: Chronic Current Visit: No (9) Dementia Status: Chronic Assessment and plan: Chronic issue. 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 Current Visit: No (10) Diabetes mellitus Status: Chronic Assessment and plan: Continue current plan of care. Defer primary management to hospital medicine. Current Visit: No Qualifiers: Diabetes mellitus type: type 2 Diabetes mellitus complication detail: with other kidney complication (11) History of multiple strokes Status: Chronic Assessment and plan: Chronic. He has a dementia, and he is bedridden as a result of multiple previous strokes. Current Visit: No (12) Hypertension Problem details: Increase clonidine to 0.1mg per tube TID. Continue coreg 25 bid , norvasc 5mg daily, change lasix to 80mg bid via tube, isordil 40mg tid. This should be his discharge antihypertensive regimen. Status: Chronic Assessment and plan: This continues to be suboptimally controlled. Started on amlodipine yesterday. Current Visit: No Qualifiers: Hypertension type: essential hypertension Qualified Code(s): I10 - Essential (primary) hypertension (13) Community acquired pneumonia Status: Acute Assessment and plan: Treatment per pulmonary medicine. Current Visit: Yes Cardiology - PN: Subj Interval history: Mr. Kim remains minimally responsive this morning, and he does not open his eyes in response to report tactile stimuli. He does grunt once in response to verbal with tactile stimuli. Prolonged expiratory phase, and he is still requiring 100% nonrebreather mask. Slightly tachypneic this morning with a respiratory rate 28 rpm with oxygen saturation upper 80s-90%. He is status post fiberoptic bronchoscopy to clear airways yesterday morning per Dr. Lord. Patient's sister is present at bedside with him. Patient sister reports the patient rested well as possible overnight. Systolic BP ranging 160- 199 mmHg. Labs reviewed. K+ 4.8. Creatinine is unchanged and is 3.2 today. BUN 110. Cell count yesterday morning with H&H 5.4/17.6. As noted previously, patient is a Mandaen, and ability to administer blood products is limited. Overall, from a cardiac standpoint he is stable. Really not much left for us to do. We will check back on him tomorrow if about the same then we will probably sign off tomorrow. Exam (Progress Note) - Constitutional Vitals: Period Temp Pulse Resp BP Sys/Crespo Pulse Ox Last 24 Hr 97.1 F-98.2 F 75-98 16-28 157-199/72-84 87-99 Exam: General: Patient is chronically ill-appearing as well as having some agonal respirations this morning. He does not obey commands. Does not open his eyes this morning. Grunts in verbal response to verbal and tactile stimuli. HEENT: normocephalic, atraumatic. Mucous membranes moist. No jaundice noted. Conjunctiva moist and clear, sclerae anicteric Neck: No obvious JVD/HJR, no thyromegaly or lymphadenopathy noted. No carotid bruit appreciated Cardiac: Regular rhythm and rate. Slight 1/6 systolic murmur at the precordium and apex. No rub, or gallop. Lungs: He is having some shallow almost agonal type respirations. Some accessory muscle use for air movement. Has slight crackles and rhonchi but no gross wheezing. Supplemental oxygen via 100% nonrebreather mask. Abdomen: Protuberant and soft, bowel sounds hypoactive. Nontender and nondistended. PEG intact. No abdominal bruit or thrill noted. No masses noted. Musculoskeletal: No fluid collection. Decreased range of motion is noted. Extremities: No clubbing, cyanosis noted. [Trace bilateral lower extremity edema. Soft boots to lower extremities.] Upper extremity pulses 2+. Difficult to palpate lower extremity pulses but warm to touch multiple amputation of toes. Mild petechiae bilateral upper extremities. Neuro: Right hand contracture noted. He makes eye contact when spoken to. No essential tremor is appreciated. He does not communicate or interact. Psychiatric: The patient will not open his eyes this morning to make eye contact. This may relate to his dementia as well as his severe underlying medical issues. Result/EKG - Labs CBC & BMP: 10/07/16 04:19 10/08/16 02:55 Lab Results: I have reviewed the past 24 hour labs Labs: Laboratory Results - last 24 hr 10/07/16 10/07/16 10/08/16 11:36 15:58 00:29 Sodium Potassium Chloride Carbon Dioxide Anion Gap BUN Creatinine GFR Calculation BUN/Creatinine Ratio Glucose POC Glucose 237 H 167 H 241 H Calculated Osmolality Calcium 10/08/16 10/08/16 10/08/16 02:55 06:02 07:53 Sodium 140 Potassium 4.8 Chloride 98 Carbon Dioxide 31 Anion Gap 15.8 H BUN 110 H Creatinine 3.20 H GFR Calculation 22 BUN/Creatinine Ratio 34.00 H Glucose 210 H POC Glucose 300 H 277 H Calculated Osmolality 319.4 H Calcium 9.2 - EKG EKG results: interpreted by me, no acute changes I, Tino Gallegos MD, personally performed the services described in this documentation, ascribed by Lauryn Floyd RN in my presence, and it is both accurate and complete 501 .
[2016-10-08] MEDS: PROPOFOL 1,000 MG/100 ML BOTTLE IV SCH (20:12)
--- NOTE | 2016-10-08 20:16 | XRay Report ---
Exam: XR chest 1V portable Date: 10/08/2016 7:47 PM Indication: Postintubation Comparison: 10/07/2016 Technical: AP portable Findings: Endotracheal tube is present. Alveolar infiltrate or edema present throughout the right lung and less prominent in the left upper chest with tiny low volume effusions bilaterally. Cardiomegaly is present. Bony structures are intact. ASVD present. Impression: 1. Interval placement of the endotracheal tube at the level aortic knob. 2. Pneumonic infiltrates and/or possibly a component of slightly asymmetric pulmonary edema with low-volume effusions present. PROCEDURE INTERPRETED AT [facility] DEPARTMENT OF RADIOLOGY Final Report Signed by: Dr. Cayetano Hayden
[2016-10-08 20:43] LABS: Amorphous Crystals,Urine Occasional /HPF (Few); Apearance,Urine Slightly Hazy (Clear); Bacteria,Urine Moderate /HPF (Few); Bilirubin,Urine Negative (Negative); Blood, Urine Negative (Negative); Glucose,Urine (UA) 50 mg/dL (Negative); Hyaline Casts,Urine 1 /LPF (0-3); Ketones,Urine Negative (Negative); Nitrite,Urine Negative (Negative); Protein,Urine 100 MG/DL; RBC,Urine 6 /HPF (0-4); Urine Color Yellow (Yellow); Urine Specific Gravity 1.013 (1.001-1.035); Urine Urobilinogen < 2.0 EU/DL (0.2-1.0); WBC,Urine 3 /HPF (0-6)
[2016-10-08 21:08] LABS: ABG Base Excess 4.7 MMOL/L (-2.5-2.5); ABG HCO3 28.7 MMOL/L (20-26); ABG PCO2 46.8 MM HG (35-48); ABG TCO2 29.1 MMOL/L (23-27); Allen Test Positive; Pt O2 Delivery Device Ventilator
[2016-10-08] MEDS: PREGABALIN 75 MG CAPSULE PO SCH (21:24)
[2016-10-08] MEDS: INSULIN GLARGINE 100 UNIT/ML SUBCUT SCH (21:49)
[2016-10-08] MEDS: ASPIRIN CHEW 81 MG TABLET PO SCH (21:49)
[2016-10-08 22:01] LABS: Eosinophils % 0.1 % (0.00-10.9); Immature Granulocytes % 1.8 %; Immature Granulocytes Absolute 0.16 #; Lymphocytes # 0.2 10*3/uL (1.4-4.0); Lymphocytes % 2.1 % (21.2-54.2); Mean Corpuscular HGB Conc 30.1 GM/DL (32-36); Mean Corpuscular Hemoglobin 30 PG (27-34); Mean Corpuscular Volume 100.7 FL (87-102); Mean Platelet Volume 13.4 FL (9.6-12.0); Monocytes # 0.4 10*3/uL (0.11-0.8); Monocytes % 4.1 % (1.7-12.7); Neutrophils # 8.3 10*3/uL (1.4-7.4); Neutrophils % 91.9 % (38.7-73.9); Platelet Count 176 T/CUMM (130-400); Red Blood Count 1.42 MC/CUMM (3.8-5.5); Red Cell Distribution Width 21.2 % (9.3-17.3)
[2016-10-08 22:05] LABS: Hematocrit 14.3 VOL% (42.0-52.0); Hemoglobin 4.3 GM/DL (14.0-18.0)
[2016-10-08 22:15] LABS: PT Patient Result 10.7 SECS; Partial Thromboplastin Time 26.2 SECS (0-40)
[2016-10-08 22:22] LABS: Albumin 2.5 G/DL (3.4-5.0); Bilirubin,Total 0.5 MG/DL (0.2-1.0); Calcium 9.4 MG/DL (8.5-10.1); Total Protein 5.8 G/DL (6.4-8.3)
[2016-10-08 22:32] LABS: Magnesium 3.2 MG/DL (1.8-2.4)
[2016-10-08 22:36] LABS: Troponin I Only 0.097 NG/ML (0.00-0.045)
[2016-10-09] MEDS: ALBUTEROL 2.5 MG/3 ML NEB RESP TX SCH ×5 (00:24→19:20)
[2016-10-09 00:53] LABS: Anisocytosis 1+; Band Neutrophils 1 % (0-10); Eosinophils 1 % (0-10); Lymphocytes 6 % (20-55); Microcytosis 1+; Platelet Estimate Normal; Segmented Neutrophils 89 % (50-85); Total Cells Counted 100
[2016-10-09] MEDS: PROPOFOL 1,000 MG/100 ML BOTTLE IV SCH ×4 (01:49→21:05)
[2016-10-09 03:31] LABS: ABG HCO3 31.5 MMOL/L (20-26); ABG Oxygen Saturation 98.5 % (95-100); ABG PCO2 38.1 MM HG (35-48); ABG PH 7.535 (7.35-7.45); ABG PO2 133.4 MM HG (80-95); ABG TCO2 32.7 MMOL/L (23-27); Allen Test Positive; Pt O2 Delivery Device Ventilator
[2016-10-09 04:42] LABS: Eosinophils # 0.3 10*3/uL (0.0-0.87); Immature Granulocytes % 1.6 %; Immature Granulocytes Absolute 0.14 #; Lymphocytes # 0.3 10*3/uL (1.4-4.0); Lymphocytes % 3.8 % (21.2-54.2); Mean Corpuscular HGB Conc 29.8 GM/DL (32-36); Mean Corpuscular Hemoglobin 29 PG (27-34); Mean Corpuscular Volume 98.6 FL (87-102); Mean Platelet Volume 13.8 FL (9.6-12.0); Monocytes # 0.6 10*3/uL (0.11-0.8); Monocytes % 6.6 % (1.7-12.7); NRBC # 0.03 10*3/uL; Neutrophils # 7.2 10*3/uL (1.4-7.4); Platelet Count 184 T/CUMM (130-400); Red Blood Count 1.43 MC/CUMM (3.8-5.5); White Blood Count 8.5 T/CUMM (4-12)
[2016-10-09 04:47] LABS: Hematocrit 14.1 VOL% (42.0-52.0); Hemoglobin 4.2 GM/DL (14.0-18.0)
[2016-10-09 05:08] LABS: Calcium 9.1 MG/DL (8.5-10.1); Magnesium 3.2 MG/DL (1.8-2.4); Osmolality,Calculated 326.1 MOS/KG (273-304); Potassium 3.6 MMOL/L (3.5-5.1)
[2016-10-09 05:16] LABS: Giant Platelets Few; Hypochromasia 1+; Microcytosis 1+; Platelet Estimate Adequate
[2016-10-09] MEDS: INSULIN REGULAR 100 UNIT/ML SUBCUT SCH ×3 (06:08→19:46)
[2016-10-09] MEDS: MEROPENEM 500 MG in SODIUM CHLORIDE 0.9% 100 ML IV SCH ×2 (06:24→17:05)
--- NOTE | 2016-10-09 07:09 | XRay Report ---
Portable chest Date: 10/09/2016 Clinical history: Ventilator Comparison: 10/08/2016 Technique: Portable AP sitting chest Findings: The heart is minimally enlarged with the endotracheal tube remaining in satisfactory position. Persistent diffuse parenchymal findings which remain more prominent in the right lung. Stable pleural effusions, mediastinum, and osseous structures. Impression: Very minimal reduction in the pulmonary edema/bilateral infiltration with at least small bilateral pleural effusions. The endotracheal tube remains in satisfactory position. PROCEDURE INTERPRETED AT [facility] DEPARTMENT OF RADIOLOGY Final Report Signed by: Dr. Danielle Dyer
--- NOTE | 2016-10-09 07:35 | Pulmonology Progress Note ---
Pulmonary - PN: Subj Interval history: Patient is a 61-year-old white man that is very debilitated. 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 He has chronic renal failure with anemia chronic disease and does not want blood because the family is Taoism. He now has congestive heart failure and possible pneumonia. He has continued to have some trouble clearing his secretions and with shortness of breath. He is still requiring fairly high FiO2. We did a therapeutic bronchoscopy and it was a little better for short time. However last night he arrested and required CPR. He is now on the ventilator in ICU. His hemoglobin is only 4.2. His oxygenation is okay and his chest x-ray is a little better. His creatinine is 3.2. The patient has multiorgan system dysfunction with multi-infarct dementia and his prognosis is terrible. If his family wants to continue with prolonged support, that he would need a tracheostomy tube Exam (Progress Note) - Constitutional Vitals: Period Temp Pulse Resp BP Sys/Crespo Pulse Ox Last 24 Hr 97.4 F-98.4 F 61-108 11-29 91-187/48-92 91-100 Exam: General appearance: the patient is basically obtunded on the ventilator now. - Head Head exam: Present: normal inspection, normocephalic - Eye Eye exam: Present: EOMI. Absent: scleral icterus Pupils: Present: JOVANY - ENT ENT exam: Present: The ET tube is in good position. - Neck Neck exam: Present: normal inspection. Absent: lymphadenopathy, thyromegaly - Respiratory Respiratory exam: Present: He has equal breath sounds bilaterally and his lungs sound a little better on the ventilator. He does not have any wheezing. - Cardiovascular Cardiovascular exam: Present: regular rate and rhythm, systolic murmur (He does have a soft murmur). Absent: gallop - GI/Abdominal GI/Abdominal exam: Present: hypoactive bowel sounds, soft. Absent: organomegaly , tenderness - Extremities Exam Extremities exam: Present: other (Multiple toe amputations). Absent: calf tenderness, edema - Neurological Exam Neurological exam: Present: He is not responding as much this morning. - Psychiatric Psychiatric exam: Absent: anxious - Skin Skin exam: Present: warm, pallor Results - Labs CBC & BMP: 10/09/16 04:05 10/09/16 04:05 Labs: The PO2 is 133 with a PCO2 of 38 and a pH of 7.5 on 60% oxygen. - Diagnostic Findings Procedure: Chest x-ray: image reviewed by me, report reviewed by me, pending ( Chest x-ray shows infiltrates on the right but better. Left lung is clearer.) Assessment and Plan (1) History of multiple strokes Status: Chronic Assessment and plan: The patient has had multiple strokes and is bedridden. He is extremely debilitated. Now he has required CPR again. His prognosis is very very poor. Current Visit: No (2) Dementia Status: Chronic Assessment and plan: Patient now is status post arrest and his prognosis is poor. Current Visit: No (3) Diabetes mellitus Status: Chronic Assessment and plan: His glucoses will be monitored. His glucose is 135 this morning. Current Visit: No Qualifiers: Diabetes mellitus type: type 2 Diabetes mellitus complication detail: with other kidney complication (4) Hyperkalemia Problem details: No identified source of potassium increase. LDH slightly elevated, ? hemolysis. Status: Acute Assessment and plan: The patient has a potassium of 3.6 today. Current Visit: No (5) Leg ulcer Status: Acute Assessment and plan: The patient has had bilateral leg ulcers. Current Visit: No (6) CKD stage 4 due to type 2 diabetes mellitus Problem details: No indication for renal replacement therapy. Pt is not a good chronic dialysis candidate due to comorbidities. Status: Acute Assessment and plan: The patient has chronic renal failure and his creatinine is 3.2 today. His renal function has been relatively stable. Current Visit: No (7) Chronic respiratory failure Status: Acute Assessment and plan: The patient likely has aspiration pneumonia and chronic respiratory problems. He has very poor pulmonary toilet. He also has a component of heart failure. He is now status post arrest is back on the ventilator. He does have multiorgan system failure. He will likely need a tracheostomy tube at this point if the family wants to continue. Current Visit: Yes (8) Anemia, chronic disease Status: Acute Assessment and plan: The patient has chronic anemia and now his hemoglobin is down to 4.2. Current Visit: Yes (9) Congestive heart failure Status: Acute Assessment and plan: Patient's chest x-ray looks like pulmonary edema. His lung is better expanded on the ventilator. He has chronic renal failure and will have trouble getting rid of fluid. Current Visit: Yes
--- NOTE | 2016-10-09 08:54 | Cardiology Progress Note ---
Assessment and Plan (1) Congestive heart failure Status: Acute Assessment and plan: Any heart failure present would be related to diastolic dysfunction or volume overload. He does not have any significant valvular abnormalities to account for this his LV function is normal. Current Visit: Yes (2) Anemia Status: Acute Assessment and plan: This is progressive and because he is a Taoism and will not take blood. Current Visit: No (3) Atrial fibrillation with RVR Status: Resolved Assessment and plan: Remains in sinus rhythm and is on amiodarone. Current Visit: Yes (4) Aspiration pneumonia Status: Acute Assessment and plan: This is being treated by pulmonary medicine. This certainly may be exacerbating his pulmonary status. Current Visit: Yes (5) Patient is Taoism Status: Chronic Assessment and plan: Due to his druze, however, he cannot take blood products. Current Visit: Yes (6) History of abdominal aortic aneurysm (AAA) Status: Chronic Assessment and plan: He has been followed in the past by an endovascular surgeon in [place]. This certainly complicates his risk in regard to his present situation. Current Visit: Yes (7) CKD stage 4 due to type 2 diabetes mellitus Problem details: No indication for renal replacement therapy. Pt is not a good chronic dialysis candidate due to comorbidities. Status: Acute Assessment and plan: Significant renal dysfunction but is not a good candidate for dialysis. Current Visit: No (8) Bedbound patient Status: Chronic Current Visit: No (9) Dementia Status: Chronic Assessment and plan: Chronic and severe issue. 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 Current Visit: No (10) Diabetes mellitus Status: Chronic Assessment and plan: Continue current plan of care. Defer primary management to hospital medicine. Current Visit: No Qualifiers: Diabetes mellitus type: type 2 Diabetes mellitus complication detail: with other kidney complication (11) History of multiple strokes Status: Chronic Assessment and plan: Chronic. He has a dementia, and he is bedridden as a result of multiple previous strokes. Current Visit: No (12) Hypertension Problem details: Increase clonidine to 0.1mg per tube TID. Continue coreg 25 bid , norvasc 5mg daily, change lasix to 80mg bid via tube, isordil 40mg tid. This should be his discharge antihypertensive regimen. Status: Chronic Assessment and plan: BP okay at this time. Current Visit: No Qualifiers: Hypertension type: essential hypertension Qualified Code(s): I10 - Essential (primary) hypertension (13) Community acquired pneumonia Status: Acute Assessment and plan: Treatment per pulmonary medicine. Current Visit: Yes Cardiology - PN: Subj Interval history: Patient apparently had respiratory failure was intubated last night is now ventilator. The patient had progressive respiratory deterioration. The patient 's chest x-ray is not available for me to visualize. Based on report the patient has pulmonary infiltrate versus heart failure. The patient also has Crohn's insufficiency as well as chronic anemia that has progressively worsened. Because they are Jehovah witnesses he will not take blood. He is not a good candidate because of his multi-infarct dementia for aggressive therapy and other comorbidities including a aortic aneurysm. His hematocrit is decreased even to 14.1 with hemoglobin of 4.2. His albumin is now 2.5. We really do not have much to offer this patient at this time. His rhythm fortunately has remained sinus. His echocardiogram revealed normal ejection fraction recently with mild to moderate diastolic dysfunction. He did not have any significant valvular abnormalities. There is not really much we have to offer from a cardiac standpoint. At this time there is not much to do from a cardiac standpoint. May need diuretic on a as needed basis. Certainly this may exacerbate his renal dysfunction. Exam (Progress Note) - Constitutional Vitals: Period Temp Pulse Resp BP Sys/Crespo Pulse Ox Last 24 Hr 97.8 F-98.4 F 61-108 11-28 91-187/48-92 91-100 Exam: General: Patient is on propofol and intubated. He is completely unresponsive. HEENT: Atraumatic with oral intubation Neck: Trachea midline without carotid bruits. Cardiac: Regular rhythm and rate. Slight 1-2/6 systolic murmur at the precordium and apex. No rub, or gallop. Lungs: Patient intubated on ventilator. Lung king anteriorly are fairly clear. Abdomen: Protuberant and soft, bowel sounds hypoactive. Musculoskeletal: No fluid collection. Decreased range of motion is noted. Extremities: Patient has trace to 1+ upper extremity edema and trace lower extremity edema. He has toes that been amputated bilaterally. Neuro: Patient on propofol. He is sedated. Psychiatric: Patient intubated on propofol. Result/EKG - Labs CBC & BMP: 10/09/16 04:05 10/09/16 04:05 Labs: Laboratory Results - last 24 hr 10/08/16 10/08/16 10/08/16 11:24 15:45 18:18 WBC RBC Hgb Hct MCV MCH MCHC RDW Plt Count MPV Neut % (Auto) Lymph % (Auto) [place] % (Auto) Eos % (Auto) Baso % (Auto) Neut # (Auto) Lymph # (Auto) [place] # (Auto) Eos # (Auto) Baso # (Auto) Total Counted Immature Gran % Nucleated RBC % Immature Gran # Segmented Neutrophils Band Neutrophils Lymphocytes Monocytes Eosinophils Nucleated RBCs # Platelet Estimate Giant Platelets Hypochromasia Anisocytosis Microcytosis INR PT Patient/Control Mix D-Dimer, Quantitative Circ Anticoag PTT ABG pH ABG pCO2 ABG pO2 ABG HCO3 ABG Total CO2 ABG O2 Saturation ABG Base Excess FiO2 Sodium Potassium Chloride Carbon Dioxide Anion Gap BUN Creatinine GFR Calculation BUN/Creatinine Ratio Glucose POC Glucose 249 H 238 H 232 H Calculated Osmolality Lactic Acid Calcium Magnesium Total Bilirubin AST ALT Alkaline Phosphatase Total Creatine Kinase CK-MB (CK-2) Troponin I Total Protein Albumin Globulin Albumin/Globulin Ratio Urine Color Urine Appearance Urine pH Ur Specific [place] Urine Protein Urine Glucose (UA) Urine Ketones Urine Blood Urine Nitrate Urine Bilirubin Urine Urobilinogen Urine Leukocytes Urine RBC Urine WBC Amorphous Crystals Urine Bacteria Hyaline Casts Ur Culture Indicated? 10/08/16 10/08/16 10/08/16 19:19 19:47 21:38 WBC 9.0 RBC 1.42 L Hgb 4.3 L* D Hct 14.3 L* D MCV 100.7 MCH 30 MCHC 30.1 L RDW 21.2 H Plt Count 176 D MPV 13.4 H Neut % (Auto) 91.9 H Lymph % (Auto) 2.1 L [place] % (Auto) 4.1 Eos % (Auto) 0.1 Baso % (Auto) 0.0 Neut # (Auto) 8.3 H Lymph # (Auto) 0.2 L [place] # (Auto) 0.4 Eos # (Auto) 0.0 Baso # (Auto) 0.0 Total Counted 100 Immature Gran % 1.8 Nucleated RBC % 0.0 Immature Gran # 0.16 Segmented Neutrophils 89 H Band Neutrophils 1 Lymphocytes 6 L Monocytes 3 Eosinophils 1 Nucleated RBCs # 0.00 Platelet Estimate Normal Giant Platelets Hypochromasia Anisocytosis 1+ Microcytosis 1+ INR PT Patient/Control Mix D-Dimer, Quantitative Circ Anticoag PTT ABG pH 7.410 ABG pCO2 46.8 ABG pO2 393.0 H ABG HCO3 28.7 H ABG Total CO2 29.1 H ABG O2 Saturation 100.0 ABG Base Excess 4.7 H FiO2 100.00 Sodium Potassium Chloride Carbon Dioxide Anion Gap BUN Creatinine GFR Calculation BUN/Creatinine Ratio Glucose POC Glucose 341 H Calculated Osmolality Lactic Acid Calcium Magnesium Total Bilirubin AST ALT Alkaline Phosphatase Total Creatine Kinase CK-MB (CK-2) Troponin I Total Protein Albumin Globulin Albumin/Globulin Ratio Urine Color Urine Appearance Urine pH Ur Specific [place] Urine Protein Urine Glucose (UA) Urine Ketones Urine Blood Urine Nitrate Urine Bilirubin Urine Urobilinogen Urine Leukocytes Urine RBC Urine WBC Amorphous Crystals Urine Bacteria Hyaline Casts Ur Culture Indicated? 10/08/16 10/08/16 10/08/16 21:38 21:38 21:38 WBC RBC Hgb Hct MCV MCH MCHC RDW Plt Count MPV Neut % (Auto) Lymph % (Auto) [place] % (Auto) Eos % (Auto) Baso % (Auto) Neut # (Auto) Lymph # (Auto) [place] # (Auto) Eos # (Auto) Baso # (Auto) Total Counted Immature Gran % Nucleated RBC % Immature Gran # Segmented Neutrophils Band Neutrophils Lymphocytes Monocytes Eosinophils Nucleated RBCs # Platelet Estimate Giant Platelets Hypochromasia Anisocytosis Microcytosis INR 1.0 PT Patient/Control Mix 10.7 D-Dimer, Quantitative 4.1 Circ Anticoag PTT 26.2 ABG pH ABG pCO2 ABG pO2 ABG HCO3 ABG Total CO2 ABG O2 Saturation ABG Base Excess FiO2 Sodium 143 Potassium 4.0 Chloride 98 Carbon Dioxide 31 Anion Gap 18.0 H BUN 120 H D Creatinine 3.40 H GFR Calculation 21 BUN/Creatinine Ratio 35.00 H Glucose 199 H POC Glucose Calculated Osmolality 328.0 H Lactic Acid Calcium 9.4 Magnesium Total Bilirubin 0.50 AST 29 ALT 22 Alkaline Phosphatase 91 Total Creatine Kinase CK-MB (CK-2) Troponin I Total Protein 5.8 L Albumin 2.5 L Globulin 3.3 Albumin/Globulin Ratio 0.7 L Urine Color Urine Appearance Urine pH Ur Specific [place] Urine Protein Urine Glucose (UA) Urine Ketones Urine Blood Urine Nitrate Urine Bilirubin Urine Urobilinogen Urine Leukocytes Urine RBC Urine WBC Amorphous Crystals Urine Bacteria Hyaline Casts Ur Culture Indicated? 10/08/16 10/08/16 10/08/16 21:38 21:38 23:32 WBC RBC Hgb Hct MCV MCH MCHC RDW Plt Count MPV Neut % (Auto) Lymph % (Auto) [place] % (Auto) Eos % (Auto) Baso % (Auto) Neut # (Auto) Lymph # (Auto) [place] # (Auto) Eos # (Auto) Baso # (Auto) Total Counted Immature Gran % Nucleated RBC % Immature Gran # Segmented Neutrophils Band Neutrophils Lymphocytes Monocytes Eosinophils Nucleated RBCs # Platelet Estimate Giant Platelets Hypochromasia Anisocytosis Microcytosis INR PT Patient/Control Mix D-Dimer, Quantitative Circ Anticoag PTT ABG pH ABG pCO2 ABG pO2 ABG HCO3 ABG Total CO2 ABG O2 Saturation ABG Base Excess FiO2 Sodium Potassium Chloride Carbon Dioxide Anion Gap BUN Creatinine GFR Calculation BUN/Creatinine Ratio Glucose POC Glucose 211 H Calculated Osmolality Lactic Acid 4.1 H Calcium Magnesium 3.2 H Total Bilirubin AST ALT Alkaline Phosphatase Total Creatine Kinase 30 L CK-MB (CK-2) 2.5 Troponin I 0.097 H D Total Protein Albumin Globulin Albumin/Globulin Ratio Urine Color Urine Appearance Urine pH Ur Specific [place] Urine Protein Urine Glucose (UA) Urine Ketones Urine Blood Urine Nitrate Urine Bilirubin Urine Urobilinogen Urine Leukocytes Urine RBC Urine WBC Amorphous Crystals Urine Bacteria Hyaline Casts Ur Culture Indicated? 10/08/16 10/09/16 10/09/16 Unknown 03:07 04:05 WBC 8.5 RBC 1.43 L Hgb 4.2 L* Hct 14.1 L* MCV 98.6 MCH 29 MCHC 29.8 L RDW 22.0 H Plt Count 184 MPV 13.8 H Neut % (Auto) 84.0 H Lymph % (Auto) 3.8 L [place] % (Auto) 6.6 Eos % (Auto) 4.0 Baso % (Auto) 0.0 Neut # (Auto) 7.2 Lymph # (Auto) 0.3 L [place] # (Auto) 0.6 Eos # (Auto) 0.3 Baso # (Auto) 0.0 Total Counted Immature Gran % 1.6 Nucleated RBC % 0.4 Immature Gran # 0.14 Segmented Neutrophils Band Neutrophils Lymphocytes Monocytes Eosinophils Nucleated RBCs # 0.03 Platelet Estimate Adequate Giant Platelets Few Hypochromasia 1+ Anisocytosis Microcytosis 1+ INR PT Patient/Control Mix D-Dimer, Quantitative Circ Anticoag PTT ABG pH 7.535 H ABG pCO2 38.1 ABG pO2 133.4 H ABG HCO3 31.5 H ABG Total CO2 32.7 H ABG O2 Saturation 98.5 ABG Base Excess 8.0 H FiO2 60.00 Sodium Potassium Chloride Carbon Dioxide Anion Gap BUN Creatinine GFR Calculation BUN/Creatinine Ratio Glucose POC Glucose Calculated Osmolality Lactic Acid Calcium Magnesium Total Bilirubin AST ALT Alkaline Phosphatase Total Creatine Kinase CK-MB (CK-2) Troponin I Total Protein Albumin Globulin Albumin/Globulin Ratio Urine Color Yellow Urine Appearance Slightly hazy Urine pH 5.0 Ur Specific [place] 1.013 Urine Protein 100 Urine Glucose (UA) 50 Urine Ketones Negative Urine Blood Negative Urine Nitrate Negative Urine Bilirubin Negative Urine Urobilinogen < 2.0 H Urine Leukocytes Negative Urine RBC 6 Urine WBC 3 Amorphous Crystals Occasional Urine Bacteria Moderate Hyaline Casts 1 Ur Culture Indicated? Not indicated 10/09/16 10/09/16 04:05 06:03 WBC RBC Hgb Hct MCV MCH MCHC RDW Plt Count MPV Neut % (Auto) Lymph % (Auto) [place] % (Auto) Eos % (Auto) Baso % (Auto) Neut # (Auto) Lymph # (Auto) [place] # (Auto) Eos # (Auto) Baso # (Auto) Total Counted Immature Gran % Nucleated RBC % Immature Gran # Segmented Neutrophils Band Neutrophils Lymphocytes Monocytes Eosinophils Nucleated RBCs # Platelet Estimate Giant Platelets Hypochromasia Anisocytosis Microcytosis INR PT Patient/Control Mix D-Dimer, Quantitative Circ Anticoag PTT ABG pH ABG pCO2 ABG pO2 ABG HCO3 ABG Total CO2 ABG O2 Saturation ABG Base Excess FiO2 Sodium 142 Potassium 3.6 Chloride 98 Carbon Dioxide 30 Anion Gap 17.6 H BUN 134 H D Creatinine 3.20 H GFR Calculation 23 BUN/Creatinine Ratio 41.00 H Glucose 113 H POC Glucose 135 H Calculated Osmolality 326.1 H Lactic Acid Calcium 9.1 Magnesium 3.2 H Total Bilirubin AST ALT Alkaline Phosphatase Total Creatine Kinase CK-MB (CK-2) Troponin I Total Protein Albumin Globulin Albumin/Globulin Ratio Urine Color Urine Appearance Urine pH Ur Specific [place] Urine Protein Urine Glucose (UA) Urine Ketones Urine Blood Urine Nitrate Urine Bilirubin Urine Urobilinogen Urine Leukocytes Urine RBC Urine WBC Amorphous Crystals Urine Bacteria Hyaline Casts Ur Culture Indicated? - Impressions Impressions: Telemetry was sinus rhythm. No dysrhythmias noted.
--- NOTE | 2016-10-09 08:54 | Cardiology Progress Note ---
Assessment and Plan (1) Patient is Protestant Status: Chronic Assessment and plan: SEE PLAN OF CARE LISTED BELOW Current Visit: Yes (2) Atrial fibrillation with RVR Status: Resolved Assessment and plan: SEE PLAN OF CARE LISTED BELOW Current Visit: Yes (3) Anemia Status: Chronic Assessment and plan: SEE PLAN OF CARE LISTED BELOW Current Visit: No (4) Pneumonia Status: Acute Assessment and plan: SEE PLAN OF CARE LISTED BELOW Current Visit: No Qualifiers: Qualified Code(s): J69.0 - Pneumonitis due to inhalation of food and vomit (5) Bedbound patient Status: Chronic Assessment and plan: SEE PLAN OF CARE LISTED BELOW Current Visit: No (6) History of multiple strokes Status: Chronic Assessment and plan: SEE PLAN OF CARE LISTED BELOW Current Visit: No (7) Hypertension Problem details: Increase clonidine to 0.1mg per tube TID. Continue coreg 25 bid , norvasc 5mg daily, change lasix to 80mg bid via tube, isordil 40mg tid. This should be his discharge antihypertensive regimen. Status: Chronic Current Visit: No Qualifiers: Qualified Code(s): I10 - Essential (primary) hypertension (8) Neuropathy Status: Chronic Assessment and plan: SEE PLAN OF CARE LISTED BELOW Current Visit: No (9) Dementia Status: Chronic Assessment and plan: SEE PLAN OF CARE LISTED BELOW Current Visit: No (10) Diabetes mellitus Status: Chronic Assessment and plan: SEE PLAN OF CARE LISTED BELOW Current Visit: No (11) Chronic kidney disease, stage III (moderate) Status: Chronic Assessment and plan: SEE PLAN OF CARE LISTED BELOW Current Visit: No (12) History of abdominal aortic aneurysm Status: Chronic Assessment and plan: SEE PLAN OF CARE LISTED BELOW Current Visit: No (13) Anemia Status: Acute Current Visit: No (14) Community acquired pneumonia Status: Acute Assessment and plan: SEE PLAN OF CARE LISTED BELOW Current Visit: Yes Exam (Progress Note) - Constitutional Vitals: Period Temp Pulse Resp BP Sys/Crespo Pulse Ox Last 24 Hr 97.8 F-98.4 F 61-108 11-28 91-187/48-92 91-100 Result/EKG - Labs CBC & BMP: 10/09/16 04:05 10/09/16 04:05 Labs: Laboratory Results - last 24 hr 10/08/16 10/08/16 10/08/16 11:24 15:45 18:18 WBC RBC Hgb Hct MCV MCH MCHC RDW Plt Count MPV Neut % (Auto) Lymph % (Auto) [place] % (Auto) Eos % (Auto) Baso % (Auto) Neut # (Auto) Lymph # (Auto) [place] # (Auto) Eos # (Auto) Baso # (Auto) Total Counted Immature Gran % Nucleated RBC % Immature Gran # Segmented Neutrophils Band Neutrophils Lymphocytes Monocytes Eosinophils Nucleated RBCs # Platelet Estimate Giant Platelets Hypochromasia Anisocytosis Microcytosis INR PT Patient/Control Mix D-Dimer, Quantitative Circ Anticoag PTT ABG pH ABG pCO2 ABG pO2 ABG HCO3 ABG Total CO2 ABG O2 Saturation ABG Base Excess FiO2 Sodium Potassium Chloride Carbon Dioxide Anion Gap BUN Creatinine GFR Calculation BUN/Creatinine Ratio Glucose POC Glucose 249 H 238 H 232 H Calculated Osmolality Lactic Acid Calcium Magnesium Total Bilirubin AST ALT Alkaline Phosphatase Total Creatine Kinase CK-MB (CK-2) Troponin I Total Protein Albumin Globulin Albumin/Globulin Ratio Urine Color Urine Appearance Urine pH Ur Specific [place] Urine Protein Urine Glucose (UA) Urine Ketones Urine Blood Urine Nitrate Urine Bilirubin Urine Urobilinogen Urine Leukocytes Urine RBC Urine WBC Amorphous Crystals Urine Bacteria Hyaline Casts Ur Culture Indicated? 10/08/16 10/08/16 10/08/16 19:19 19:47 21:38 WBC 9.0 RBC 1.42 L Hgb 4.3 L* D Hct 14.3 L* D MCV 100.7 MCH 30 MCHC 30.1 L RDW 21.2 H Plt Count 176 D MPV 13.4 H Neut % (Auto) 91.9 H Lymph % (Auto) 2.1 L [place] % (Auto) 4.1 Eos % (Auto) 0.1 Baso % (Auto) 0.0 Neut # (Auto) 8.3 H Lymph # (Auto) 0.2 L [place] # (Auto) 0.4 Eos # (Auto) 0.0 Baso # (Auto) 0.0 Total Counted 100 Immature Gran % 1.8 Nucleated RBC % 0.0 Immature Gran # 0.16 Segmented Neutrophils 89 H Band Neutrophils 1 Lymphocytes 6 L Monocytes 3 Eosinophils 1 Nucleated RBCs # 0.00 Platelet Estimate Normal Giant Platelets Hypochromasia Anisocytosis 1+ Microcytosis 1+ INR PT Patient/Control Mix D-Dimer, Quantitative Circ Anticoag PTT ABG pH 7.410 ABG pCO2 46.8 ABG pO2 393.0 H ABG HCO3 28.7 H ABG Total CO2 29.1 H ABG O2 Saturation 100.0 ABG Base Excess 4.7 H FiO2 100.00 Sodium Potassium Chloride Carbon Dioxide Anion Gap BUN Creatinine GFR Calculation BUN/Creatinine Ratio Glucose POC Glucose 341 H Calculated Osmolality Lactic Acid Calcium Magnesium Total Bilirubin AST ALT Alkaline Phosphatase Total Creatine Kinase CK-MB (CK-2) Troponin I Total Protein Albumin Globulin Albumin/Globulin Ratio Urine Color Urine Appearance Urine pH Ur Specific [place] Urine Protein Urine Glucose (UA) Urine Ketones Urine Blood Urine Nitrate Urine Bilirubin Urine Urobilinogen Urine Leukocytes Urine RBC Urine WBC Amorphous Crystals Urine Bacteria Hyaline Casts Ur Culture Indicated? 10/08/16 10/08/16 10/08/16 21:38 21:38 21:38 WBC RBC Hgb Hct MCV MCH MCHC RDW Plt Count MPV Neut % (Auto) Lymph % (Auto) [place] % (Auto) Eos % (Auto) Baso % (Auto) Neut # (Auto) Lymph # (Auto) [place] # (Auto) Eos # (Auto) Baso # (Auto) Total Counted Immature Gran % Nucleated RBC % Immature Gran # Segmented Neutrophils Band Neutrophils Lymphocytes Monocytes Eosinophils Nucleated RBCs # Platelet Estimate Giant Platelets Hypochromasia Anisocytosis Microcytosis INR 1.0 PT Patient/Control Mix 10.7 D-Dimer, Quantitative 4.1 Circ Anticoag PTT 26.2 ABG pH ABG pCO2 ABG pO2 ABG HCO3 ABG Total CO2 ABG O2 Saturation ABG Base Excess FiO2 Sodium 143 Potassium 4.0 Chloride 98 Carbon Dioxide 31 Anion Gap 18.0 H BUN 120 H D Creatinine 3.40 H GFR Calculation 21 BUN/Creatinine Ratio 35.00 H Glucose 199 H POC Glucose Calculated Osmolality 328.0 H Lactic Acid Calcium 9.4 Magnesium Total Bilirubin 0.50 AST 29 ALT 22 Alkaline Phosphatase 91 Total Creatine Kinase CK-MB (CK-2) Troponin I Total Protein 5.8 L Albumin 2.5 L Globulin 3.3 Albumin/Globulin Ratio 0.7 L Urine Color Urine Appearance Urine pH Ur Specific [place] Urine Protein Urine Glucose (UA) Urine Ketones Urine Blood Urine Nitrate Urine Bilirubin Urine Urobilinogen Urine Leukocytes Urine RBC Urine WBC Amorphous Crystals Urine Bacteria Hyaline Casts Ur Culture Indicated? 10/08/16 10/08/16 10/08/16 21:38 21:38 23:32 WBC RBC Hgb Hct MCV MCH MCHC RDW Plt Count MPV Neut % (Auto) Lymph % (Auto) [place] % (Auto) Eos % (Auto) Baso % (Auto) Neut # (Auto) Lymph # (Auto) [place] # (Auto) Eos # (Auto) Baso # (Auto) Total Counted Immature Gran % Nucleated RBC % Immature Gran # Segmented Neutrophils Band Neutrophils Lymphocytes Monocytes Eosinophils Nucleated RBCs # Platelet Estimate Giant Platelets Hypochromasia Anisocytosis Microcytosis INR PT Patient/Control Mix D-Dimer, Quantitative Circ Anticoag PTT ABG pH ABG pCO2 ABG pO2 ABG HCO3 ABG Total CO2 ABG O2 Saturation ABG Base Excess FiO2 Sodium Potassium Chloride Carbon Dioxide Anion Gap BUN Creatinine GFR Calculation BUN/Creatinine Ratio Glucose POC Glucose 211 H Calculated Osmolality Lactic Acid 4.1 H Calcium Magnesium 3.2 H Total Bilirubin AST ALT Alkaline Phosphatase Total Creatine Kinase 30 L CK-MB (CK-2) 2.5 Troponin I 0.097 H D Total Protein Albumin Globulin Albumin/Globulin Ratio Urine Color Urine Appearance Urine pH Ur Specific [place] Urine Protein Urine Glucose (UA) Urine Ketones Urine Blood Urine Nitrate Urine Bilirubin Urine Urobilinogen Urine Leukocytes Urine RBC Urine WBC Amorphous Crystals Urine Bacteria Hyaline Casts Ur Culture Indicated? 10/08/16 10/09/16 10/09/16 Unknown 03:07 04:05 WBC 8.5 RBC 1.43 L Hgb 4.2 L* Hct 14.1 L* MCV 98.6 MCH 29 MCHC 29.8 L RDW 22.0 H Plt Count 184 MPV 13.8 H Neut % (Auto) 84.0 H Lymph % (Auto) 3.8 L [place] % (Auto) 6.6 Eos % (Auto) 4.0 Baso % (Auto) 0.0 Neut # (Auto) 7.2 Lymph # (Auto) 0.3 L [place] # (Auto) 0.6 Eos # (Auto) 0.3 Baso # (Auto) 0.0 Total Counted Immature Gran % 1.6 Nucleated RBC % 0.4 Immature Gran # 0.14 Segmented Neutrophils Band Neutrophils Lymphocytes Monocytes Eosinophils Nucleated RBCs # 0.03 Platelet Estimate Adequate Giant Platelets Few Hypochromasia 1+ Anisocytosis Microcytosis 1+ INR PT Patient/Control Mix D-Dimer, Quantitative Circ Anticoag PTT ABG pH 7.535 H ABG pCO2 38.1 ABG pO2 133.4 H ABG HCO3 31.5 H ABG Total CO2 32.7 H ABG O2 Saturation 98.5 ABG Base Excess 8.0 H FiO2 60.00 Sodium Potassium Chloride Carbon Dioxide Anion Gap BUN Creatinine GFR Calculation BUN/Creatinine Ratio Glucose POC Glucose Calculated Osmolality Lactic Acid Calcium Magnesium Total Bilirubin AST ALT Alkaline Phosphatase Total Creatine Kinase CK-MB (CK-2) Troponin I Total Protein Albumin Globulin Albumin/Globulin Ratio Urine Color Yellow Urine Appearance Slightly hazy Urine pH 5.0 Ur Specific [place] 1.013 Urine Protein 100 Urine Glucose (UA) 50 Urine Ketones Negative Urine Blood Negative Urine Nitrate Negative Urine Bilirubin Negative Urine Urobilinogen < 2.0 H Urine Leukocytes Negative Urine RBC 6 Urine WBC 3 Amorphous Crystals Occasional Urine Bacteria Moderate Hyaline Casts 1 Ur Culture Indicated? Not indicated 10/09/16 10/09/16 04:05 06:03 WBC RBC Hgb Hct MCV MCH MCHC RDW Plt Count MPV Neut % (Auto) Lymph % (Auto) [place] % (Auto) Eos % (Auto) Baso % (Auto) Neut # (Auto) Lymph # (Auto) [place] # (Auto) Eos # (Auto) Baso # (Auto) Total Counted Immature Gran % Nucleated RBC % Immature Gran # Segmented Neutrophils Band Neutrophils Lymphocytes Monocytes Eosinophils Nucleated RBCs # Platelet Estimate Giant Platelets Hypochromasia Anisocytosis Microcytosis INR PT Patient/Control Mix D-Dimer, Quantitative Circ Anticoag PTT ABG pH ABG pCO2 ABG pO2 ABG HCO3 ABG Total CO2 ABG O2 Saturation ABG Base Excess FiO2 Sodium 142 Potassium 3.6 Chloride 98 Carbon Dioxide 30 Anion Gap 17.6 H BUN 134 H D Creatinine 3.20 H GFR Calculation 23 BUN/Creatinine Ratio 41.00 H Glucose 113 H POC Glucose 135 H Calculated Osmolality 326.1 H Lactic Acid Calcium 9.1 Magnesium 3.2 H Total Bilirubin AST ALT Alkaline Phosphatase Total Creatine Kinase CK-MB (CK-2) Troponin I Total Protein Albumin Globulin Albumin/Globulin Ratio Urine Color Urine Appearance Urine pH Ur Specific [place] Urine Protein Urine Glucose (UA) Urine Ketones Urine Blood Urine Nitrate Urine Bilirubin Urine Urobilinogen Urine Leukocytes Urine RBC Urine WBC Amorphous Crystals Urine Bacteria Hyaline Casts Ur Culture Indicated?
[2016-10-09] MEDS: PREGABALIN 75 MG CAPSULE PO SCH ×3 (09:00→21:31)
[2016-10-09] MEDS: AMIODARONE 200 MG TABLET PO SCH (09:09)
[2016-10-09] MEDS: FOLIC ACID 0.4 MG TABLET PO SCH ×2 (09:09→21:32)
[2016-10-09] MEDS: TAMSULOSIN 0.4 MG CAPSULE PO SCH (09:09)
[2016-10-09] MEDS: DILTIAZEM 60 MG TABLET PO SCH ×4 (09:09→22:20)
[2016-10-09] MEDS: METOPROLOL TARTRATE 50 MG TABLET PO SCH ×3 (09:09→21:30)
[2016-10-09] MEDS: BACITRACIN OINT 0.9 GM PACK TOP SCH (09:09)
[2016-10-09] MEDS: ISOSORBIDE MONONITRATE 30 MG TABLET PO SCH (09:09)
[2016-10-09] MEDS: amLODIPine 5 MG TABLET PO SCH ×2 (09:10→21:32)
[2016-10-09] MEDS: FINASTERIDE 5 MG TABLET PO SCH (09:10)
[2016-10-09] MEDS: CYANOCOBALAMIN 500 MCG TABLET PO SCH ×2 (09:10→21:31)
[2016-10-09] MEDS: SERTRALINE 25 MG TABLET PO SCH (09:10)
[2016-10-09] MEDS: LANSOPRAZOLE ODT 30 MG TABLET PO SCH ×2 (09:10→21:32)
--- NOTE | 2016-10-09 09:41 | Nephrology Progress Note ---
Nephrology - PN: Subj Interval history: S/P cardiac arrest overnight. In ICU on vent. Unresponsive. Hgb 4. Exam (PN)-Nephrology - Vital Signs Vital signs: Period Temp Pulse Resp BP Sys/Crespo Pulse Ox Last 24 Hr 97.8 F-98.4 F 61-108 11-28 91-187/48-92 91-100 - General Appearance General appearance: obese, chronically ill, sedated on ventilator, intubated EENT: ATNC, PERRL Neck: no JVD, no thyromegaly Respiratory: no kyphosis, rales Cardiology: no murmurs, no rub Gastrointestinal: hypoactive bowel sounds, no tenderness Integumentary: no rash, warm and dry Neurologic: obtunded Musculoskeletal: no deformities, no erythema - Lab 10/09/16 04:05 10/09/16 04:05 Most recent lab results ABG pH 7.535 (7.35-7.45) H 10/09/16 03:07 ABG pCO2 38.1 MM HG (35-48) 10/09/16 03:07 ABG pO2 133.4 MM HG (80-95) H 10/09/16 03:07 ABG HCO3 31.5 MMOL/L (20-26) H 10/09/16 03:07 ABG O2 Saturation 98.5 % (95-100) 10/09/16 03:07 Calcium 9.1 MG/DL (8.5-10.1) 10/09/16 04:05 Phosphorus 5.8 MG/DL (2.5-4.9) H 10/06/16 03:11 Magnesium 3.2 MG/DL (1.8-2.4) H 10/09/16 04:05 Assessment and Plan (1) CKD stage 4 due to type 2 diabetes mellitus Problem details: No indication for renal replacement therapy. Pt is not a good chronic dialysis candidate due to comorbidities. Status: Acute Assessment and plan: Grave prognosis. Current Visit: No (2) Dementia Status: Chronic Current Visit: No (3) Anemia Status: Chronic Assessment and plan: Iron studies c/w anemia of chronic disease. Adequate stores for erythropoiesis. Continue Epogen TIW. Stool for OB x 3 not resulted. Suspect occult blood loss. Current Visit: No Qualifiers: Anemia type: iron deficiency (4) Sequela of cerebrovascular accident Status: Acute Current Visit: Yes
--- NOTE | 2016-10-09 10:59 | Infectious Disease Progress ---
Assessment and Plan (1) Aspiration pneumonia Status: Acute Assessment and plan: ESBL E. coli isolated from sputum once again. Patient with respiratory failure. He has recurrent aspiration likely, due to debilitated state from past stroke. Recommendations: Continue meropenem Overall prognosis dismal Current Visit: Yes (2) Sequela of cerebrovascular accident Status: Acute Current Visit: Yes (3) Acute on chronic renal failure Status: Acute Current Visit: No (4) Dementia Status: Chronic Current Visit: No (5) Diabetes mellitus Status: Chronic Current Visit: No Qualifiers: Diabetes mellitus type: type 2 Diabetes mellitus complication detail: with other kidney complication (6) Hypertension Problem details: Increase clonidine to 0.1mg per tube TID. Continue coreg 25 bid , norvasc 5mg daily, change lasix to 80mg bid via tube, isordil 40mg tid. This should be his discharge antihypertensive regimen. Status: Chronic Current Visit: No Qualifiers: Hypertension type: essential hypertension Qualified Code(s): I10 - Essential (primary) hypertension (7) Positive blood culture Status: Acute Assessment and plan: BILL hominis in 1 of 2 sets of blood cultures indicative of contamination. Current Visit: Yes Infectious Disease - PN: Subj Interval history: Now in ICU on vent following cardiopulmonary arrest yesterday. Poorly responsive. No significant secretions from ETT per nurse, however. Infectious Disease Exam (PN) - Constitutional Vitals: Temp Pulse Resp BP Pulse Ox 97.8 F 77 12 154/65 100 10/09/16 08:00 10/09/16 10:00 10/09/16 10:50 10/09/16 10:00 10/09/16 10:00 General appearance: over weight Exam: General appearance: unresponsive on vent, ill looking - Eye Eye exam: Present: EOMI. no icterus Pupils: Present: JOVANY - Respiratory Respiratory exam: no added sounds heard - Cardiovascular Cardiovascular exam: regular rate and rhythm, no murmurs - GI/Abdominal GI/Abdominal exam: normal bowel sounds, soft, non-tender, no organomegaly or mass - Extremities Exam Extremities exam: Generalized edema - Skin Skin exam: excoriated rash to dorsum of feet Results - Labs CBC & BMP: 10/09/16 04:05 10/09/16 04:05 Lab Results: I have reviewed the past 24 hour labs (ESBL E. coli from sputum culture)
[2016-10-09] MEDS: DESITIN 4OZ/NYSTATIN 15 GRAM MIXTURE PASTE TOP SCH ×2 (12:58→21:32)
--- NOTE | 2016-10-09 17:36 | Hospitalist Progress Note ---
Assessment and Plan - Time spent with patient Time spent with patient: Greater than 30 minutes (32 minutes) (1) Anemia Status: Chronic Current Visit: No Qualifiers: Anemia type: iron deficiency (2) Bedbound patient Status: Chronic Current Visit: No (3) Hypertension Status: Chronic Current Visit: No Qualifiers: Hypertension type: essential hypertension Qualified Code(s): I10 - Essential (primary) hypertension (4) Diabetes mellitus Status: Chronic Current Visit: No Qualifiers: Diabetes mellitus type: type 2 Diabetes mellitus complication detail: with other kidney complication (5) CKD stage 4 due to type 2 diabetes mellitus Problem details: No indication for renal replacement therapy. Pt is not a good chronic dialysis candidate due to comorbidities. Status: Chronic Current Visit: No (6) Patient is Orthodoxy Status: Chronic Current Visit: Yes Hospitalist: Subjective Interval history: The patient moved to ICU on last night status post cardiac arrest. Hemoglobin noted to be extremely low at 4. Patient is a Orthodoxy. Exam - Constitutional Vitals: Period Temp Pulse Resp BP Sys/Crespo Pulse Ox Last 24 Hr 97.6 F-98.4 F 60-83 11-18 91-165/43-92 100-100 General appearance: other (Ventilated) - ENT ENT exam: Present: normal exam - Respiratory Respiratory exam: Present: clear to auscultation bilaterally - Cardiovascular Cardiovascular exam: Present: regular rate and rhythm - GI/Abdominal GI/Abdominal exam: Present: normal bowel sounds Results - Labs CBC & BMP: 10/09/16 04:05 10/09/16 04:05
[2016-10-09] MEDS: INSULIN GLARGINE 100 UNIT/ML SUBCUT SCH (21:06)
[2016-10-09] MEDS: ASPIRIN CHEW 81 MG TABLET PO SCH (21:07)
[2016-10-10] MEDS: ALBUTEROL 2.5 MG/3 ML NEB RESP TX SCH ×4 (01:07→19:58)
[2016-10-10] MEDS: INSULIN REGULAR 100 UNIT/ML SUBCUT SCH ×4 (01:16→19:21)
[2016-10-10] MEDS: PROPOFOL 1,000 MG/100 ML BOTTLE IV SCH ×4 (03:10→21:47)
[2016-10-10] MEDS: MEROPENEM 500 MG in SODIUM CHLORIDE 0.9% 100 ML IV SCH ×2 (04:48→17:37)
[2016-10-10] MEDS: hydrALAZINE 20 MG/1 ML VIAL IV PRN (05:27)
[2016-10-10 06:34] LABS: Basophils % 0.1 % (0.0-0.8); Eosinophils # 1.6 10*3/uL (0.0-0.87); Eosinophils % 22.6 % (0.00-10.9); Hematocrit 13.6 VOL% (42.0-52.0); Immature Granulocytes Absolute 0.07 #; Lymphocytes # 0.3 10*3/uL (1.4-4.0); Lymphocytes % 4.7 % (21.2-54.2); Mean Corpuscular HGB Conc 30.9 GM/DL (32-36); Mean Corpuscular Hemoglobin 30 PG (27-34); Mean Corpuscular Volume 98.6 FL (87-102); Mean Platelet Volume 13.7 FL (9.6-12.0); Monocytes # 0.4 10*3/uL (0.11-0.8); Monocytes % 5.5 % (1.7-12.7); NRBC # 0.04 10*3/uL; Neutrophils # 4.7 10*3/uL (1.4-7.4); Neutrophils % 66.1 % (38.7-73.9); Platelet Count 202 T/CUMM (130-400); Red Blood Count 1.38 MC/CUMM (3.8-5.5); Red Cell Distribution Width 22.6 % (9.3-17.3); White Blood Count 7.1 T/CUMM (4-12)
[2016-10-10 06:38] LABS: Hemoglobin 4.2 GM/DL (14.0-18.0)
--- NOTE | 2016-10-10 06:57 | Cardiology Progress Note ---
Assessment and Plan (1) Congestive heart failure Status: Acute Assessment and plan: Any heart failure present would be related to diastolic dysfunction or volume overload. He does not have any significant valvular abnormalities to account for this his and his LV function is normal. His hypoalbuminemia also will exacerbate any third spacing of fluid. Current Visit: Yes (2) Anemia Status: Acute Assessment and plan: This is progressive and because he is a [employer] and will not take blood. This certainly contributes to his issues and make it unlikely he will survive this.. Current Visit: No (3) Atrial fibrillation with RVR Status: Resolved Assessment and plan: Remains in sinus rhythm and is on amiodarone. We will continue to monitor this on amiodarone. Current Visit: Yes (4) Aspiration pneumonia Status: Acute Assessment and plan: This is being treated by pulmonary medicine. This certainly may be exacerbating his pulmonary status. Current Visit: Yes (5) Patient is Baptism Status: Chronic Assessment and plan: Due to his latter day, however, he cannot take blood products. Current Visit: Yes (6) History of abdominal aortic aneurysm (AAA) Status: Chronic Assessment and plan: He has been followed in the past by an endovascular surgeon in [place]. This certainly complicates his risk in regard to his present situation. Current Visit: Yes (7) CKD stage 4 due to type 2 diabetes mellitus Problem details: No indication for renal replacement therapy. Pt is not a good chronic dialysis candidate due to comorbidities. Status: Chronic Assessment and plan: Significant renal dysfunction but is not a good candidate for dialysis. Current Visit: No (8) Bedbound patient Status: Chronic Current Visit: No (9) Dementia Status: Chronic Assessment and plan: Chronic and severe issue. 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 Current Visit: No (10) Diabetes mellitus Status: Chronic Assessment and plan: Continue current plan of care. Defer primary management to hospital medicine. Current Visit: No Qualifiers: Diabetes mellitus type: type 2 Diabetes mellitus complication detail: with other kidney complication (11) History of multiple strokes Status: Chronic Assessment and plan: Chronic. He has a dementia, and he is bedridden as a result of multiple previous strokes. Current Visit: No (12) Hypertension Status: Chronic Assessment and plan: BP okay at this time. Current Visit: No Qualifiers: Hypertension type: essential hypertension Qualified Code(s): I10 - Essential (primary) hypertension (13) Community acquired pneumonia Status: Acute Assessment and plan: Treatment per pulmonary medicine. Current Visit: Yes Cardiology - PN: Subj Interval history: This patient remains intubated and sedated with propofol. He has had no change from cardiac standpoint without any dysrhythmias and his blood pressures been stable. In fact his pressures have been more normal in place may be secondary to his sedation of propofol. His hemoglobin is 4.2 and hematocrit of 13.6. Certainly no improvement. We will not follow-up over the weekend. Let us know we can be any further service over the weekend. Exam (Progress Note) - Constitutional Vitals: Period Temp Pulse Resp BP Sys/Crespo Pulse Ox Last 24 Hr 97.4 F-97.8 F 60-83 11-14 107-172/43-67 96-100 Exam: General: Patient is on propofol and intubated. He is unresponsive at this time is some this may be propofol. Even before this though he was minimally responsive and usually only with eye contact. HEENT: Atraumatic with oral intubation Neck: Trachea midline without carotid bruits. Cardiac: Regular rhythm and rate. Slight 2/6 systolic murmur at the precordium and apex. No rub, or gallop. Lungs: Patient intubated on ventilator. Lung king anteriorly are fairly clear. Abdomen: Protuberant and soft, bowel sounds hypoactive. Musculoskeletal: No change. Extremities: Patient has trace to 1+ upper extremity edema and trace lower extremity edema. He has toes that been amputated bilaterally. Neuro: Patient on propofol. He is sedated. Psychiatric: Patient intubated on propofol. Result/EKG - Labs CBC & BMP: 10/10/16 05:59 10/09/16 04:05 Lab Results: I have reviewed the past 24 hour labs (Creatinine is stable her BUN is increasing.) Labs: Laboratory Results - last 24 hr 10/08/16 10/09/16 10/09/16 15:45 12:12 18:10 WBC RBC Hgb Hct MCV MCH MCHC RDW Plt Count MPV Neut % (Auto) Lymph % (Auto) Forrest % (Auto) Eos % (Auto) Baso % (Auto) Neut # (Auto) Lymph # (Auto) Forrest # (Auto) Eos # (Auto) Baso # (Auto) Immature Gran % Nucleated RBC % Immature Gran # Nucleated RBCs # POC Glucose 238 H 130 H 140 H 10/10/16 10/10/16 10/10/16 00:05 05:36 05:59 WBC 7.1 RBC 1.38 L Hgb 4.2 L* Hct 13.6 L* MCV 98.6 MCH 30 MCHC 30.9 L RDW 22.6 H Plt Count 202 MPV 13.7 H Neut % (Auto) 66.1 Lymph % (Auto) 4.7 L Forrest % (Auto) 5.5 Eos % (Auto) 22.6 H Baso % (Auto) 0.1 Neut # (Auto) 4.7 Lymph # (Auto) 0.3 L Forrest # (Auto) 0.4 Eos # (Auto) 1.6 H Baso # (Auto) 0.0 Immature Gran % 1.0 Nucleated RBC % 0.6 Immature Gran # 0.07 Nucleated RBCs # 0.04 POC Glucose 141 H 149 H
[2016-10-10 07:06] LABS: Band Neutrophils 1 % (0-10); Eosinophils 6 % (0-10); Hypochromasia 2+; Lymphocytes 4 % (20-55); Microcytosis 1+; Platelet Estimate Adequate; Segmented Neutrophils 82 % (50-85); Total Cells Counted 100
--- NOTE | 2016-10-10 07:27 | Nephrology Progress Note ---
Nephrology - PN: Subj Interval history: PT appears comfortable. Intubated, mechanically ventilatd. Exam (PN)-Nephrology - Vital Signs Vital signs: Period Temp Pulse Resp BP Sys/Crespo Pulse Ox Last 24 Hr 97.4 F-97.8 F 60-83 11-14 107-172/43-67 96-100 - General Appearance General appearance: chronically ill, sedated on ventilator, intubated EENT: ATNC, PERRL Neck: no JVD, no thyromegaly Respiratory: no kyphosis, rales Cardiology: no murmurs, no rub Gastrointestinal: normoactive bowel sounds, no tenderness Integumentary: no rash, warm and dry Neurologic: obtunded Musculoskeletal: no deformities, no erythema - Lab 10/10/16 05:59 10/09/16 04:05 Most recent lab results ABG pH 7.535 (7.35-7.45) H 10/09/16 03:07 ABG pCO2 38.1 MM HG (35-48) 10/09/16 03:07 ABG pO2 133.4 MM HG (80-95) H 10/09/16 03:07 ABG HCO3 31.5 MMOL/L (20-26) H 10/09/16 03:07 ABG O2 Saturation 98.5 % (95-100) 10/09/16 03:07 Calcium 9.1 MG/DL (8.5-10.1) 10/09/16 04:05 Phosphorus 5.8 MG/DL (2.5-4.9) H 10/06/16 03:11 Magnesium 3.2 MG/DL (1.8-2.4) H 10/09/16 04:05 Assessment and Plan (1) CKD stage 4 due to type 2 diabetes mellitus Problem details: No indication for renal replacement therapy. Pt is not a good chronic dialysis candidate due to comorbidities. Status: Chronic Assessment and plan: Grave prognosis. Current Visit: No (2) Dementia Status: Chronic Current Visit: No (3) Anemia Status: Chronic Assessment and plan: Iron studies c/w anemia of chronic disease. Adequate stores for erythropoiesis. Continue Epogen TIW. Stool for OB x 3 not resulted. Suspect occult blood loss. Current Visit: No Qualifiers: Anemia type: iron deficiency (4) Sequela of cerebrovascular accident Status: Acute Current Visit: Yes
--- NOTE | 2016-10-10 08:23 | Pulmonology Progress Note ---
Pulmonary - PN: Subj Interval history: Patient is a 61-year-old white man that is very debilitated. 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 He has chronic renal failure with anemia chronic disease and does not want blood because the family is Baptism. He now has congestive heart failure and possible pneumonia. He developed worsening respiratory distress and basically had an arrest. Now he is on the ventilator again. He is responding and waking up a little. He looks reasonably stable on the ventilator. His O2 saturations are okay and his blood pressure is stable. His hemoglobin is still 4.2. Exam (Progress Note) - Constitutional Vitals: Period Temp Pulse Resp BP Sys/Crespo Pulse Ox Last 24 Hr 97.4 F-98.2 F 60-83 11-14 107-172/43-67 96-100 Exam: General appearance: the patient is grimacing and responding a little but still does not do much activity. He is stable on the ventilator at present. - Head Head exam: Present: normal inspection, normocephalic - Eye Eye exam: Present: EOMI. Absent: scleral icterus Pupils: Present: JOVANY - ENT ENT exam: Present: The ET tube is in good position. - Neck Neck exam: Present: normal inspection. Absent: lymphadenopathy, thyromegaly - Respiratory Respiratory exam: Present: He has equal breath sounds bilaterally and his lungs sound a little better on the ventilator. He does not have any wheezing. He has good breath sounds bilaterally. - Cardiovascular Cardiovascular exam: Present: regular rate and rhythm, systolic murmur (He does have a soft murmur). Absent: gallop - GI/Abdominal GI/Abdominal exam: Present: hypoactive bowel sounds, soft. Absent: organomegaly , tenderness - Extremities Exam Extremities exam: Present: other (Multiple toe amputations). Absent: calf tenderness, edema - Neurological Exam Neurological exam: Present: He is grimacing and responding a little. - Psychiatric Psychiatric exam: Absent: anxious - Skin Skin exam: Present: warm, pallor Results - Labs CBC & BMP: 10/10/16 05:59 10/09/16 04:05 Assessment and Plan (1) History of multiple strokes Status: Chronic Assessment and plan: The patient has had multiple strokes and is bedridden. He is extremely debilitated. He does have extremely poor pulmonary toilet. He is back on the ventilator again. Current Visit: No (2) Dementia Status: Chronic Assessment and plan: Patient now is status post arrest and his prognosis is poor. Current Visit: No (3) Diabetes mellitus Status: Chronic Assessment and plan: His glucoses will be monitored. His glucose is 149 this morning. Current Visit: No Qualifiers: Diabetes mellitus type: type 2 Diabetes mellitus complication detail: with other kidney complication (4) Hyperkalemia Problem details: No identified source of potassium increase. LDH slightly elevated, ? hemolysis. Status: Acute Assessment and plan: The patient has a potassium of 3.6 today. Current Visit: No (5) Leg ulcer Status: Acute Assessment and plan: The patient has had bilateral leg ulcers. Current Visit: No (6) CKD stage 4 due to type 2 diabetes mellitus Problem details: No indication for renal replacement therapy. Pt is not a good chronic dialysis candidate due to comorbidities. Status: Chronic Assessment and plan: The patient has chronic renal failure and his creatinine is 3.2. His renal function has been relatively stable. Current Visit: No (7) Chronic respiratory failure Status: Acute Assessment and plan: The patient likely has aspiration pneumonia and chronic respiratory problems. He has very poor pulmonary toilet. He also has a component of heart failure. He is now status post arrest is back on the ventilator. He does have multiorgan system failure. His oxygenation is better. He is stable on the ventilator at present. He will probably need a tracheostomy tube. Current Visit: Yes (8) Anemia, chronic disease Status: Acute Assessment and plan: The patient has chronic anemia and now his hemoglobin is down to 4.2. Current Visit: Yes (9) Congestive heart failure Status: Acute Assessment and plan: Patient's chest x-ray looks like pulmonary edema. His lung is better expanded on the ventilator. He has chronic renal failure and will have trouble getting rid of fluid. He does have fairly good urine output. Current Visit: Yes
[2016-10-10] MEDS: cloNIDine 0.2 MG/24 HR PATCH TRANSDERM SCH (08:41)
[2016-10-10] MEDS: FOLIC ACID 0.4 MG TABLET PO SCH ×2 (08:43→21:25)
[2016-10-10] MEDS: DESITIN 4OZ/NYSTATIN 15 GRAM MIXTURE PASTE TOP SCH ×2 (08:43→21:31)
[2016-10-10] MEDS: EPOETIN ALFA 10,000 UNIT/1 ML VIAL SUBCUT SCH (08:44)
[2016-10-10] MEDS: ISOSORBIDE MONONITRATE 30 MG TABLET PO SCH (08:45)
[2016-10-10] MEDS: AMIODARONE 200 MG TABLET PO SCH (08:45)
[2016-10-10] MEDS: LANSOPRAZOLE ODT 30 MG TABLET PO SCH ×2 (08:45→21:24)
[2016-10-10] MEDS: SERTRALINE 25 MG TABLET PO SCH (08:45)
[2016-10-10] MEDS: METOPROLOL TARTRATE 50 MG TABLET PO SCH ×3 (08:45→21:27)
[2016-10-10] MEDS: TAMSULOSIN 0.4 MG CAPSULE PO SCH (08:46)
[2016-10-10] MEDS: BACITRACIN OINT 0.9 GM PACK TOP SCH (08:46)
[2016-10-10] MEDS: CYANOCOBALAMIN 500 MCG TABLET PO SCH ×2 (09:02→21:26)
[2016-10-10] MEDS: DILTIAZEM 60 MG TABLET PO SCH ×4 (09:02→21:26)
[2016-10-10] MEDS: FINASTERIDE 5 MG TABLET PO SCH (09:03)
[2016-10-10] MEDS: amLODIPine 5 MG TABLET PO SCH ×2 (09:06→21:27)
[2016-10-10] MEDS: PREGABALIN 75 MG CAPSULE PO SCH ×2 (09:31→21:31)
--- NOTE | 2016-10-10 10:45 | Infectious Disease Progress ---
Assessment and Plan (1) Aspiration pneumonia Status: Acute Assessment and plan: ESBL E. coli isolated from sputum once again. Patient with respiratory failure. He has recurrent aspiration likely, due to debilitated state from past stroke. Recommendations: Continue meropenem; follow-up blood cultures. Overall prognosis remains dismal Current Visit: Yes (2) Sequela of cerebrovascular accident Status: Acute Current Visit: Yes (3) Acute on chronic renal failure Status: Acute Current Visit: No (4) Dementia Status: Chronic Current Visit: No (5) Diabetes mellitus Status: Chronic Current Visit: No Qualifiers: Diabetes mellitus type: type 2 Diabetes mellitus complication detail: with other kidney complication (6) Hypertension Status: Chronic Current Visit: No Qualifiers: Hypertension type: essential hypertension Qualified Code(s): I10 - Essential (primary) hypertension (7) Positive blood culture Status: Acute Assessment and plan: MSShominis in 1 of 2 sets of blood cultures indicative of contamination. Current Visit: Yes Infectious Disease - PN: Subj Interval history: Patient remains on vent, poorly responsive. He has not had fever. Infectious Disease Exam (PN) - Constitutional Vitals: Temp Pulse Resp BP Pulse Ox 98.2 F 67 12 110/49 98 10/10/16 07:51 10/10/16 10:00 10/10/16 10:00 10/10/16 10:00 10/10/16 10:00 General appearance: other (Ventilated) Exam: - Gen Poorly responsive on vent - Eye Eye exam: Present: EOMI. no icterus Pupils: Present: JOVANY - Respiratory Respiratory exam: no added sounds heard - Cardiovascular Cardiovascular exam: regular rate and rhythm, no murmurs - GI/Abdominal GI/Abdominal exam: Sluggish bowel sounds, soft, non-tender, no organomegaly or mass - Extremities Exam Extremities exam: Generalized edema - Skin Skin exam: excoriated rash to dorsum of feet Results - Labs CBC & BMP: 10/10/16 05:59 10/09/16 04:05 Lab Results: I have reviewed the past 24 hour labs
--- NOTE | 2016-10-10 11:34 | XRay Report ---
Exam: XR chest post procedure Date: 10/10/2016 10:25 AM Indication: IV access end-stage renal disease Comparison: 10/09/2016 3:16 AM Technical: AP portable Findings: Endotracheal tube is located just below the clavicle and superior to the aortic knob. Cardiomegaly is present. A right IJ catheter is present at the superior vena cava right atrial junction. Low volume right effusion present. Mild cardiomegaly. No pneumothorax. Impression: 1. Stable position of endotracheal tube 2. Interval placement right IJ catheter 3. Cardiomegaly with interstitial alveolar edema and low volume effusion right lung PROCEDURE INTERPRETED AT [facility] DEPARTMENT OF RADIOLOGY Final Report Signed by: Dr. Cayetano Hayden
--- NOTE | 2016-10-10 11:38 | Post Interventional Procedure ---
Pre-op diagnosis: iv access Post-op diagnosis: same Procedure: us guided central vein cath Radiologist: Cayetano Hayden Specimens: none sent Estimated blood loss: none Complications: none Condition: critical Description/Findings: Exam: IR cvc insert nt >5, US guide vascular access Date: 10/10/2016 3:46 PM Indication: IV access end-stage renal disease ventilator Comparison: None VIR Cayetano Hayden D.O. Loader Engineer Sydney Galvez, RT Findings: The risk and benefits were explained family and informed consent was obtained. Maximal sterile barrier was utilized with the road roller operator hot mix and assistance wearing, caps, gown ,gloves ,facemask and hand washing was utilized. The patient arm was cleansed with ChloraPrep. 1% local lidocaine was administered. Ultrasound guidance was utilized with image stored and captured. Right internal jugular vein catheter was placed after initial puncture with sheath placed and 035 wire. A 7 Greek dilator was passed and a small stab wound was made. A 7 Greek 20 cm triple lumen catheter was placed. The catheter was placed at the superior vena cava right atrial junction. The catheter was flushed with heparinized saline solution and secured to skin with silk suture. A Tegaderm dressing was applied. Estimated blood loss none Complications none Condition stable Specimen none Impression: Satisfactory ultrasound-guided central venous access catheter placement with the procedure performed at the patient's bedside. Images were stored and captured
--- NOTE | 2016-10-10 13:43 | Hospitalist Progress Note ---
Assessment and Plan (1) Anemia Status: Chronic Current Visit: No Qualifiers: Anemia type: iron deficiency (2) Bedbound patient Status: Chronic Current Visit: No (3) Hypertension Status: Chronic Current Visit: No Qualifiers: Hypertension type: essential hypertension Qualified Code(s): I10 - Essential (primary) hypertension (4) Diabetes mellitus Status: Chronic Current Visit: No Qualifiers: Diabetes mellitus type: type 2 Diabetes mellitus complication detail: with other kidney complication (5) CKD stage 4 due to type 2 diabetes mellitus Problem details: No indication for renal replacement therapy. Pt is not a good chronic dialysis candidate due to comorbidities. Status: Chronic Current Visit: No (6) Patient is [employer]ism Status: Chronic Current Visit: Yes Hospitalist: Subjective Interval history: The patient remains ventilated family members are at the bedside. Hematocrit is still 13. Continue with Neupogen. Exam - Constitutional Vitals: Period Temp Pulse Resp BP Sys/Crespo Pulse Ox Last 24 Hr 97.4 F-98.2 F 60-83 11-14 110-172/44-67 96-100 General appearance: other (Intubated) - Head Head exam: Present: normal inspection - Neck Neck exam: Present: normal inspection - Respiratory Respiratory exam: Present: rales (Bilaterally, patient is ventilated) - Cardiovascular Cardiovascular exam: Present: regular rate and rhythm - GI/Abdominal GI/Abdominal exam: Present: normal bowel sounds - Extremities Exam Extremities exam: Present: normal inspection Results - Labs CBC & BMP: 10/10/16 05:59 10/09/16 04:05
[2016-10-10] MEDS: ASPIRIN CHEW 81 MG TABLET PO SCH (21:26)
[2016-10-10] MEDS: INSULIN GLARGINE 100 UNIT/ML SUBCUT SCH (21:27)
[2016-10-11] MEDS: ALBUTEROL 2.5 MG/3 ML NEB RESP TX SCH ×4 (00:28→19:44)
[2016-10-11] MEDS: INSULIN REGULAR 100 UNIT/ML SUBCUT SCH ×4 (01:14→17:10)
[2016-10-11 03:38] LABS: ABG Base Excess 3.1 MMOL/L (-2.5-2.5); ABG HCO3 27.3 MMOL/L (20-26); ABG PCO2 39.1 MM HG (35-48); ABG PH 7.452 (7.35-7.45); ABG TCO2 26.8 MMOL/L (23-27); Pt O2 Delivery Device Ventilator
[2016-10-11 04:28] LABS: Eosinophils # 1.4 10*3/uL (0.0-0.87); Eosinophils % 17.5 % (0.00-10.9); Immature Granulocytes % 0.8 %; Immature Granulocytes Absolute 0.06 #; Lymphocytes # 0.3 10*3/uL (1.4-4.0); Mean Corpuscular HGB Conc 34.6 GM/DL (32-36); Mean Corpuscular Hemoglobin 35 PG (27-34); Mean Corpuscular Volume 102.4 FL (87-102); Mean Platelet Volume 13.2 FL (9.6-12.0); Monocytes # 0.3 10*3/uL (0.11-0.8); Monocytes % 4.1 % (1.7-12.7); NRBC # 0.09 10*3/uL; Neutrophils # 5.7 10*3/uL (1.4-7.4); Neutrophils % 73.6 % (38.7-73.9); Platelet Count 236 T/CUMM (130-400); Red Blood Count 1.27 MC/CUMM (3.8-5.5); Red Cell Distribution Width 22.6 % (9.3-17.3); White Blood Count 7.8 T/CUMM (4-12)
[2016-10-11] MEDS: MEROPENEM 500 MG in SODIUM CHLORIDE 0.9% 100 ML IV SCH ×2 (04:30→16:59)
[2016-10-11 04:42] LABS: Hemoglobin 4.5 GM/DL (14.0-18.0)
[2016-10-11 04:54] LABS: Osmolality,Calculated 321.7 MOS/KG (273-304); Potassium 3.6 MMOL/L (3.5-5.1)
[2016-10-11 05:24] LABS: Band Neutrophils 1 % (0-10); Eosinophils 15 % (0-10); Lymphocytes 4 % (20-55); Segmented Neutrophils 76 % (50-85); Total Cells Counted 100
[2016-10-11 05:29] LABS: Anisocytosis 1+; Microcytosis 1+; Platelet Estimate Adequate; Tear Drop Cells Few
--- NOTE | 2016-10-11 07:08 | XRay Report ---
XR chest 1V portable Indication: Intubated. Chest one view: Since yesterday, endotracheal tube, central line, cardiomegaly, and obscuration of both lung bases persists unchanged. No new infiltrates are shown. Impression: No change. PROCEDURE INTERPRETED AT [facility] DEPARTMENT OF RADIOLOGY Final Report Signed by: Tino Solorzano M.D.
--- NOTE | 2016-10-11 07:46 | Nephrology Progress Note ---
Nephrology - PN: Subj Interval history: The patient remains ventilated. No other acute changes. Hemodynamics have been stable. Hematocrit noted to be 13. Patient is on broad-spectrum antibiotics. Metabolic's are acceptable. Exam (PN)-Nephrology - Vital Signs Vital signs: Period Temp Pulse Resp BP Sys/Crespo Pulse Ox Last 24 Hr 97.9 F-98.8 F 62-82 10-16 110-143/39-75 92-100 - General Appearance General appearance: well-developed, intubated Neck: supple Respiratory: clear Cardiology: no edema, regular rate, regular rhythm Gastrointestinal: normoactive bowel sounds - Lab 10/11/16 04:05 10/11/16 04:05 Most recent lab results ABG pH 7.452 (7.35-7.45) H 10/11/16 03:31 ABG pCO2 39.1 MM HG (35-48) 10/11/16 03:31 ABG pO2 175.0 MM HG (80-95) H 10/11/16 03:31 ABG HCO3 27.3 MMOL/L (20-26) H 10/11/16 03:31 ABG O2 Saturation 100.0 % (95-100) 10/11/16 03:31 Calcium 8.0 MG/DL (8.5-10.1) L 10/11/16 04:05 Phosphorus 5.8 MG/DL (2.5-4.9) H 10/06/16 03:11 Magnesium 3.2 MG/DL (1.8-2.4) H 10/09/16 04:05 Assessment and Plan (1) Anemia Status: Chronic Current Visit: No Qualifiers: Anemia type: iron deficiency (2) Bedbound patient Status: Chronic Current Visit: No (3) Hypertension Status: Chronic Current Visit: No Qualifiers: Hypertension type: essential hypertension Qualified Code(s): I10 - Essential (primary) hypertension (4) Diabetes mellitus Status: Chronic Current Visit: No Qualifiers: Diabetes mellitus type: type 2 Diabetes mellitus complication detail: with other kidney complication (5) CKD stage 4 due to type 2 diabetes mellitus Problem details: No indication for renal replacement therapy. Pt is not a good chronic dialysis candidate due to comorbidities. Status: Chronic Current Visit: No (6) Patient is Catholic Status: Chronic Current Visit: Yes
[2016-10-11] MEDS: BACITRACIN OINT 0.9 GM PACK TOP SCH (08:47)
[2016-10-11] MEDS: FOLIC ACID 0.4 MG TABLET PO SCH ×2 (08:47→21:39)
[2016-10-11] MEDS: DESITIN 4OZ/NYSTATIN 15 GRAM MIXTURE PASTE TOP SCH ×2 (08:47→21:40)
[2016-10-11] MEDS: CYANOCOBALAMIN 500 MCG TABLET PO SCH ×2 (08:47→21:39)
[2016-10-11] MEDS: PREGABALIN 75 MG CAPSULE PO SCH ×2 (08:47→21:56)
[2016-10-11] MEDS: LANSOPRAZOLE ODT 30 MG TABLET PO SCH ×2 (08:48→21:40)
[2016-10-11] MEDS: TAMSULOSIN 0.4 MG CAPSULE PO SCH (08:48)
[2016-10-11] MEDS: AMIODARONE 200 MG TABLET PO SCH (08:48)
[2016-10-11] MEDS: amLODIPine 5 MG TABLET PO SCH ×2 (08:48→21:40)
[2016-10-11] MEDS: SERTRALINE 25 MG TABLET PO SCH (08:49)
[2016-10-11] MEDS: ISOSORBIDE MONONITRATE 30 MG TABLET PO SCH (08:49)
[2016-10-11] MEDS: METOPROLOL TARTRATE 50 MG TABLET PO SCH ×4 (08:49→21:39)
[2016-10-11] MEDS: DILTIAZEM 60 MG TABLET PO SCH ×4 (08:50→21:40)
[2016-10-11] MEDS: FINASTERIDE 5 MG TABLET PO SCH (08:53)
--- NOTE | 2016-10-11 10:08 | Hospitalist Progress Note ---
Assessment and Plan (1) Pneumonia Status: Acute Assessment and plan: ESBL E.coli in bronch washing. on Merrem Current Visit: No Qualifiers: Pneumonia type: aspiration pneumonia Aspiration pneumonia type: due to gastric secretions Laterality: unspecified laterality Lung location: unspecified part of lung Qualified Code(s): J69.0 - Pneumonitis due to inhalation of food and vomit (2) Anemia Status: Chronic Assessment and plan: Patient receives Epogen related to his chronic anemia secondary to chronic kidney disease. His iron level is 58 and he does have a component of iron deficiency anemia. Current Visit: No Qualifiers: Anemia type: due to chronic kidney disease Chronic kidney disease stage: stage 4 (severe) Qualified Code(s): N18.4 - Chronic kidney disease, stage 4 ( severe); D63.1 - Anemia in chronic kidney disease (3) Bedbound patient Status: Chronic Current Visit: No (4) Hypertension Status: Chronic Current Visit: No Qualifiers: Hypertension type: essential hypertension Qualified Code(s): I10 - Essential (primary) hypertension (5) Diabetes mellitus Status: Chronic Current Visit: No Qualifiers: Diabetes mellitus type: type 2 Diabetes mellitus complication detail: with other kidney complication 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 Pt is not a good chronic dialysis candidate due to comorbidities. Status: Chronic Current Visit: No (8) Iron deficiency anemia Problem details: Adequate iron saturations for erythropoiesis after replacement. Status: Chronic Current Visit: No (9) Patient is Gnosticism Status: Chronic Current Visit: Yes Hospitalist: Subjective Interval history: Patient seen and examined. No acute events overnight. Case discussed with nursing staff. Labs reviewed. Remains very anemic Exam - Constitutional Vitals: Period Temp Pulse Resp BP Sys/Crespo Pulse Ox Last 24 Hr 97.9 F-99.0 F 62-73 10-16 112-142/39-75 92-100 Exam: Constitutional System: Mild distress. No tremulousness. Pale and ill-appearing Head: Normocephalic, atraumatic. Ears, Nose and Throat System: No pain or tenderness. No epistaxis or discharge. ET tube in place Eyes System: Pupils equal, round, and reactive. Extraocular muscles intact. Neck: Supple, without adenopathy, No jugular venous distention. No thyromegaly, neck mass, or prior surgery apparent. Respiratory System: Chest clear to auscultation. Cardiovascular System: Heart with regular rate and rhythm. No murmur. GI System: Abdomen soft, nontender. Normo active bowel sounds present. Musculoskeletal System: limbs with no pedal edema. Full distal pulses. Multiple amputations involving numerous toes. Skin ulcerations and abrasions noted on bilateral feet-these were present on admission. Neurological System: Intubated and sedated Psychiatric System: Unobtainable secondary to patient's condition Results - Labs CBC & BMP: 10/11/16 04:05 10/11/16 04:05 Lab Results: I have reviewed the past 24 hour labs
[2016-10-11] MEDS: PROPOFOL 1,000 MG/100 ML BOTTLE IV SCH (12:07)
--- NOTE | 2016-10-11 13:04 | Pulmonology Progress Note ---
Pulmonary - PN: Subj Interval history: 61y/o M with dementia & bedridden admitted for heart failure & pneumonia requiring mechanical ventilation. pt also with significant anemia with Hgb 4, but pt & family decline transfusion (Synagogue). Pt had no acute events overnight & no new concerns this AM. Exam (Progress Note) - Constitutional Vitals: Period Temp Pulse Resp BP Sys/Crespo Pulse Ox Last 24 Hr 97.9 F-99.0 F 64-73 10-16 98-142/39-75 92-100 General appearance: over weight - Head Head exam: Present: normal inspection, normocephalic - ENT ENT exam: Present: normal exam - Neck Neck exam: Present: normal inspection - Respiratory Respiratory exam: Present: clear to auscultation bilaterally. Absent: rales, rhonchi, wheezes - Cardiovascular Cardiovascular exam: Present: regular rate and rhythm. Absent: JVD, systolic murmur - GI/Abdominal GI/Abdominal exam: Present: normal bowel sounds, soft. Absent: tenderness - Extremities Exam Extremities exam: Present: normal inspection - Neurological Exam Neurological exam: Present: other (Sedated on vent) - Skin Skin exam: Present: normal color Results - Labs CBC & BMP: 10/11/16 04:05 10/11/16 04:05 - Diagnostic Findings Procedure: Chest x-ray: report reviewed by me (Images not available to view; report says no change.) Assessment and Plan (1) Chronic respiratory failure Status: Acute Assessment and plan: Multifactorial but slowly improving. He will likely need a tracheostomy. Continue current management & wean as allowed. Current Visit: Yes (2) Aspiration pneumonia Status: Acute Assessment and plan: ESBL E. coli, on Merrem. Continue current management. CXR in AM. Current Visit: Yes Qualifiers: Aspiration pneumonia type: due to gastric secretions Lung location: unspecified part of lung (3) Anemia, chronic disease Status: Acute Assessment and plan: Hgb remains 4; Epogen being given. [facility]. Current Visit: Yes (4) Patient is Evangelical Status: Chronic Current Visit: Yes
[2016-10-11] MEDS: ASPIRIN CHEW 81 MG TABLET PO SCH (21:39)
[2016-10-11] MEDS: INSULIN GLARGINE 100 UNIT/ML SUBCUT SCH (21:44)
[2016-10-12] MEDS: ALBUTEROL 2.5 MG/3 ML NEB RESP TX SCH ×4 (00:37→19:29)
[2016-10-12] MEDS: INSULIN REGULAR 100 UNIT/ML SUBCUT SCH ×4 (01:42→18:13)
[2016-10-12] MEDS: PROPOFOL 1,000 MG/100 ML BOTTLE IV SCH (02:50)
[2016-10-12] MEDS: MEROPENEM 500 MG in SODIUM CHLORIDE 0.9% 100 ML IV SCH ×2 (06:00→16:49)
--- NOTE | 2016-10-12 07:30 | XRay Report ---
XR chest 1V portable Indication: Intubated. Chest one view: Comparison yesterday. Endotracheal tube, central line, cardiomegaly, and hazy obscuration of both lung bases appears stable. No new infiltrates are seen. Impression: No change. PROCEDURE INTERPRETED AT [facility] DEPARTMENT OF RADIOLOGY Final Report Signed by: Tino Solorzano M.D.
--- NOTE | 2016-10-12 07:42 | Pulmonology Progress Note ---
Pulmonary - PN: Subj Interval history: 61y/o M with dementia & bedridden admitted for heart failure & pneumonia requiring mechanical ventilation. pt also with significant anemia with Hgb 4, but pt & family declines transfusion (Denominational). Pt had no acute events overnight & no new concerns this AM. Exam (Progress Note) - Constitutional Vitals: Period Temp Pulse Resp BP Sys/Crespo Pulse Ox Last 24 Hr 98.6 F-99.0 F 63-82 12-15 98-131/34-63 92-100 General appearance: over weight - Head Head exam: Present: normal inspection - Eye Eye exam: Present: EOMI Pupils: Present: JOVANY - ENT ENT exam: Present: normal exam - Neck Neck exam: Present: normal inspection - Respiratory Respiratory exam: Present: clear to auscultation bilaterally. Absent: rales, rhonchi, wheezes - Cardiovascular Cardiovascular exam: Present: regular rate and rhythm - GI/Abdominal GI/Abdominal exam: Present: normal bowel sounds, soft - Extremities Exam Extremities exam: Present: normal inspection - Neurological Exam Neurological exam: Present: other (Sedated on the ventilator but arousable with physical stimulation) - Skin Skin exam: Present: warm, dry, pallor Results - Labs CBC & BMP: 10/11/16 04:05 10/11/16 04:05 - Diagnostic Findings Procedure: Chest x-ray: report reviewed by me (Images unable to be viewed. Report with no interval changes per) Assessment and Plan (1) Chronic respiratory failure Status: Acute Assessment and plan: Multifactorial but slowly improving. We will start CPAP trials today. Current Visit: Yes (2) Aspiration pneumonia Status: Acute Assessment and plan: ESBL E. coli, on Merrem. Continue current management. CXR in AM. Current Visit: Yes Qualifiers: Aspiration pneumonia type: due to gastric secretions Lung location: unspecified part of lung (3) Anemia, chronic disease Status: Acute Assessment and plan: Hgb remains 4; Epogen being given. [facility]. Current Visit: Yes (4) Patient is Sikh Status: Chronic Current Visit: Yes
--- NOTE | 2016-10-12 08:47 | Nephrology Progress Note ---
Nephrology - PN: Subj Interval history: Patient's condition is about the same. Blood pressures been stable at 120s over 80s. Patient's sister had concerns about blood pressure been low at times. Mr. Dickens's sedation has been decrease his blood pressure has been stable continuing current management for this patient. Exam (PN)-Nephrology - Vital Signs Vital signs: Period Temp Pulse Resp BP Sys/Crespo Pulse Ox Last 24 Hr 98.6 F-99 F 63-82 12-15 98-131/34-63 92-100 - General Appearance General appearance: well-developed, intubated EENT: ATNC Neck: supple Respiratory: clear Cardiology: no edema, regular rate, regular rhythm Gastrointestinal: normoactive bowel sounds, no tenderness Musculoskeletal: no clubbing - Lab 10/11/16 04:05 10/11/16 04:05 Most recent lab results ABG pH 7.452 (7.35-7.45) H 10/11/16 03:31 ABG pCO2 39.1 MM HG (35-48) 10/11/16 03:31 ABG pO2 175.0 MM HG (80-95) H 10/11/16 03:31 ABG HCO3 27.3 MMOL/L (20-26) H 10/11/16 03:31 ABG O2 Saturation 100.0 % (95-100) 10/11/16 03:31 Calcium 8.0 MG/DL (8.5-10.1) L 10/11/16 04:05 Phosphorus 5.8 MG/DL (2.5-4.9) H 10/06/16 03:11 Magnesium 3.2 MG/DL (1.8-2.4) H 10/09/16 04:05 Assessment and Plan (1) Anemia Status: Chronic Current Visit: No Qualifiers: Anemia type: due to chronic kidney disease Chronic kidney disease stage: stage 4 (severe) Qualified Code(s): N18.4 - Chronic kidney disease, stage 4 ( severe); D63.1 - Anemia in chronic kidney disease (2) Bedbound patient Status: Chronic Current Visit: No (3) Hypertension Status: Chronic Current Visit: No Qualifiers: Hypertension type: essential hypertension Qualified Code(s): I10 - Essential (primary) hypertension (4) Diabetes mellitus Status: Chronic Current Visit: No Qualifiers: Diabetes mellitus type: type 2 Diabetes mellitus complication detail: with other kidney complication Diabetes mellitus 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 Pt is not a good chronic dialysis candidate due to comorbidities. Status: Chronic Current Visit: No (6) Patient is Temple Status: Chronic Current Visit: Yes
[2016-10-12] MEDS: PREGABALIN 75 MG CAPSULE PO SCH ×2 (09:43→21:53)
[2016-10-12] MEDS: AMIODARONE 200 MG TABLET PO SCH (09:43)
[2016-10-12] MEDS: SERTRALINE 25 MG TABLET PO SCH (09:44)
[2016-10-12] MEDS: FINASTERIDE 5 MG TABLET PO SCH (09:44)
[2016-10-12] MEDS: FOLIC ACID 0.4 MG TABLET PO SCH ×2 (09:44→21:53)
[2016-10-12] MEDS: CYANOCOBALAMIN 500 MCG TABLET PO SCH ×2 (09:44→21:54)
[2016-10-12] MEDS: amLODIPine 5 MG TABLET PO SCH ×2 (09:44→21:42)
[2016-10-12] MEDS: BACITRACIN OINT 0.9 GM PACK TOP SCH (09:44)
[2016-10-12] MEDS: TAMSULOSIN 0.4 MG CAPSULE PO SCH (09:44)
[2016-10-12] MEDS: ISOSORBIDE MONONITRATE 30 MG TABLET PO SCH (09:45)
[2016-10-12] MEDS: LANSOPRAZOLE ODT 30 MG TABLET PO SCH ×2 (09:45→21:54)
[2016-10-12] MEDS: DILTIAZEM 60 MG TABLET PO SCH ×4 (09:45→21:53)
[2016-10-12] MEDS: METOPROLOL TARTRATE 50 MG TABLET PO SCH ×3 (09:46→21:54)
[2016-10-12] MEDS: DESITIN 4OZ/NYSTATIN 15 GRAM MIXTURE PASTE TOP SCH ×2 (09:47→21:54)
--- NOTE | 2016-10-12 10:17 | Hospitalist Progress Note ---
Assessment and Plan (1) Pneumonia Status: Acute Assessment and plan: ESBL E.coli in bronch washing. on Merrem. CXR without significant change Current Visit: No Qualifiers: Pneumonia type: aspiration pneumonia Aspiration pneumonia type: due to gastric secretions Laterality: unspecified laterality Lung location: unspecified part of lung Qualified Code(s): J69.0 - Pneumonitis due to inhalation of food and vomit (2) Anemia Status: Chronic Assessment and plan: Patient receives Epogen 3 times per week, related to his chronic anemia secondary to chronic kidney disease. His iron level is 58 and he does have a component of iron deficiency anemia. Current Visit: No Qualifiers: Anemia type: due to chronic kidney disease Chronic kidney disease stage: stage 4 (severe) Qualified Code(s): N18.4 - Chronic kidney disease, stage 4 ( severe); D63.1 - Anemia in chronic kidney disease (3) Bedbound patient Status: Chronic Current Visit: No (4) Hypertension Status: Chronic Current Visit: No Qualifiers: Hypertension type: essential hypertension Qualified Code(s): I10 - Essential (primary) hypertension (5) Diabetes mellitus Status: Chronic Current Visit: No Qualifiers: Diabetes mellitus type: type 2 Diabetes mellitus complication detail: with other kidney complication Diabetes mellitus long term care phlebotomist insulin use: with snf use (6) Acute on chronic renal failure Status: Acute Current Visit: No Qualifiers: Chronic kidney disease stage: stage 4 (severe) (7) CKD stage 4 due to type 2 diabetes mellitus Problem details: No indication for renal replacement therapy. Pt is not a good chronic dialysis candidate due to comorbidities. Status: Chronic Current Visit: No (8) Iron deficiency anemia Problem details: Adequate iron saturations for erythropoiesis after replacement. Status: Chronic Current Visit: No (9) Patient is Caodaism Status: Chronic Current Visit: Yes (10) Congestive heart failure Status: Acute Assessment and plan: preserved EF of 60%. Has diastolic syfxn- grade 2 by echo from August 2016 Normal left ventricular size, with mild eccentric hypertrophy, more prominent on the septum. There is no outflow tract obstruction. Normal systolic function, estimated left ventricular ejection fraction 60%. Grade 2 diastolic dysfunction. Mild mitral valve sclerosis. Mild mitral valve regurgitation. Aortic valve sclerosis, without stenosis, with mild insufficiency. Mild pulmonary hypertension. Mild pulmonic valve insufficiency. Current Visit: Yes Qualifiers: Congestive heart failure type: diastolic Congestive heart failure chronicity: acute on chronic Qualified Code(s): I50.33 - Acute on chronic diastolic (congestive) heart failure Hospitalist: Subjective Interval history: Patient seen and examined. No acute events overnight. Case discussed with nursing staff. Labs reviewed. Case discussed with sister at the bedside. FiO2 reduced to 40%. Exam - Constitutional Vitals: Period Temp Pulse Resp BP Sys/Crespo Pulse Ox Last 24 Hr 98.6 F-99 F 63-82 12-13 98-136/34-63 92-100 Exam: Constitutional System: No distress. No tremulousness. Pale and ill-appearing Head: Normocephalic, atraumatic. Ears, Nose and Throat System: No pain or tenderness. No epistaxis or discharge. ET tube in place Eyes System: Pupils equal, round, and reactive. Extraocular muscles intact. Neck: Supple, without adenopathy, No jugular venous distention. Respiratory System: Chest clear to auscultation. Cardiovascular System: Heart with regular rate and rhythm. No murmur. GI System: Abdomen soft, nontender. Normo active bowel sounds present. Musculoskeletal System: limbs with no pedal edema. Full distal pulses. Multiple amputations involving numerous toes. Skin ulcerations and abrasions noted on bilateral feet-these were present on admission. Neurological System: Intubated and sedated Psychiatric System: Unobtainable secondary to patient's condition Results - Labs CBC & BMP: 10/11/16 04:05 10/11/16 04:05 Lab Results: I have reviewed the past 24 hour labs - Diagnostic Findings Procedure: Chest x-ray: report reviewed by me
[2016-10-12] MEDS: ASPIRIN CHEW 81 MG TABLET PO SCH (21:53)
[2016-10-12] MEDS: INSULIN GLARGINE 100 UNIT/ML SUBCUT SCH (21:54)
[2016-10-13] MEDS: INSULIN REGULAR 100 UNIT/ML SUBCUT SCH ×4 (01:03→18:48)
[2016-10-13] MEDS: ALBUTEROL 2.5 MG/3 ML NEB RESP TX SCH ×4 (01:25→19:06)
[2016-10-13] MEDS: MEROPENEM 500 MG in SODIUM CHLORIDE 0.9% 100 ML IV SCH ×2 (05:15→17:33)
[2016-10-13 05:29] LABS: Calcium 6.5 MG/DL (8.5-10.1); Osmolality,Calculated 314.7 MOS/KG (273-304); Phosphorous 7.4 MG/DL (2.5-4.9); Potassium 3.3 MMOL/L (3.5-5.1)
[2016-10-13] MEDS: PROPOFOL 1,000 MG/100 ML BOTTLE IV SCH (06:29)
[2016-10-13 06:32] LABS: Prealbumin 78.2 MG/DL (20-40)
--- NOTE | 2016-10-13 07:33 | Pulmonology Progress Note ---
Pulmonary - PN: Subj Interval history: Patient is a 61-year-old white man that is very debilitated. 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 He has chronic renal failure with anemia chronic disease and does not want blood because the family is Orthodox. He now has congestive heart failure and possible pneumonia. He developed worsening respiratory distress and basically had an arrest. Now he is on the ventilator again. He is responding and waking up a little. He looks reasonably stable on the ventilator. Over the weekend he was relatively stable. He is only able to do short CPAP trials but his oxygenation is stable. His chest x-ray does look better with only right lower lobe consolidation now. Exam (Progress Note) - Constitutional Vitals: Period Temp Pulse Resp BP Sys/Crespo Pulse Ox Last 24 Hr 98.5 F-99 F 63-82 12-114 101-137/36-61 89-100 Exam: General appearance: the patient is grimacing and responding a little but still does not do much activity. He is stable on the ventilator at present. - Head Head exam: Present: normal inspection, normocephalic - Eye Eye exam: Present: EOMI. Absent: scleral icterus Pupils: Present: JOVANY - ENT ENT exam: Present: The ET tube is in good position. - Neck Neck exam: Present: normal inspection. Absent: lymphadenopathy, thyromegaly - Respiratory Respiratory exam: Present: He has equal breath sounds bilaterally is moving air reasonably well without any significant wheezing. - Cardiovascular Cardiovascular exam: Present: regular rate and rhythm, systolic murmur (He does have a soft murmur). Absent: gallop - GI/Abdominal GI/Abdominal exam: Present: hypoactive bowel sounds, soft. Absent: organomegaly , tenderness - Extremities Exam Extremities exam: Present: other (Multiple toe amputations). Absent: calf tenderness, edema - Neurological Exam Neurological exam: Present: He is grimacing and responding a little. - Psychiatric Psychiatric exam: Absent: anxious - Skin Skin exam: Present: warm, pallor Results - Labs CBC & BMP: 10/11/16 04:05 10/13/16 04:15 - Diagnostic Findings Procedure: Chest x-ray: image reviewed by me, report reviewed by me (Chest x- ray shows right lower lobe consolidation. The left lung is fairly clear.) Assessment and Plan (1) History of multiple strokes Status: Chronic Assessment and plan: The patient has had multiple strokes and is bedridden. He is extremely debilitated. He does have extremely poor pulmonary toilet. He is back on the ventilator again. He is reasonably stable on the ventilator. Current Visit: No (2) Dementia Status: Chronic Assessment and plan: Patient now is status post arrest and his prognosis is poor. Current Visit: No (3) Diabetes mellitus Status: Chronic Assessment and plan: His glucoses will be monitored. His glucose is 214 this morning. Current Visit: No Qualifiers: Diabetes mellitus type: type 2 Diabetes mellitus complication detail: with other kidney complication Diabetes mellitus intermediate accountant insulin use: with intermediate accountant use (4) Hyperkalemia Problem details: No identified source of potassium increase. LDH slightly elevated, ? hemolysis. Status: Resolved Assessment and plan: The patient has a potassium of 3.3 today. Current Visit: No (5) Leg ulcer Status: Acute Assessment and plan: The patient has had bilateral leg ulcers. Current Visit: No (6) CKD stage 4 due to type 2 diabetes mellitus Problem details: No indication for renal replacement therapy. Pt is not a good chronic dialysis candidate due to comorbidities. Status: Chronic Assessment and plan: The patient has chronic renal failure and his creatinine is 4.1 today. Current Visit: No (7) Chronic respiratory failure Status: Acute Assessment and plan: The patient likely has aspiration pneumonia and chronic respiratory problems. He has very poor pulmonary toilet. He also has a component of heart failure. He is now status post arrest is back on the ventilator. He does have multiorgan system failure. His oxygenation is better. He is stable on the ventilator at present. Will adjust his ventilator and try CPAP trials. He needs a tracheostomy tube but he is such a poor candidate for this. Current Visit: Yes (8) Anemia, chronic disease Status: Acute Assessment and plan: The patient has chronic anemia and now his hemoglobin was 4.5 yesterday. Current Visit: Yes (9) Congestive heart failure Status: Acute Assessment and plan: Patient's chest x-ray is better and does not look like heart failure now. Current Visit: Yes Qualifiers: Congestive heart failure type: diastolic Congestive heart failure chronicity: acute on chronic Qualified Code(s): I50.33 - Acute on chronic diastolic (congestive) heart failure
--- NOTE | 2016-10-13 08:45 | Nephrology Progress Note ---
Nephrology - PN: Subj Interval history: Unresponsive. Appears comfortable. Intubated, ventilated. Exam (PN)-Nephrology - Vital Signs Vital signs: Period Temp Pulse Resp BP Sys/Crespo Pulse Ox Last 24 Hr 98.5 F-99 F 63-82 12-114 101-137/36-61 89-100 - General Appearance General appearance: chronically ill, sedated on ventilator, intubated EENT: ATNC, PERRL, mucous membranes dry Neck: no JVD, no thyromegaly Respiratory: no kyphosis, rales Cardiology: no murmurs, no rub Gastrointestinal: normoactive bowel sounds, no tenderness Integumentary: no rash, warm and dry Neurologic: no asterixis, aphasic Musculoskeletal: no deformities, no erythema - Lab 10/11/16 04:05 10/13/16 04:15 Most recent lab results ABG pH 7.452 (7.35-7.45) H 10/11/16 03:31 ABG pCO2 39.1 MM HG (35-48) 10/11/16 03:31 ABG pO2 175.0 MM HG (80-95) H 10/11/16 03:31 ABG HCO3 27.3 MMOL/L (20-26) H 10/11/16 03:31 ABG O2 Saturation 100.0 % (95-100) 10/11/16 03:31 Calcium 6.5 MG/DL (8.5-10.1) L 10/13/16 04:15 Phosphorus 7.4 MG/DL (2.5-4.9) H 10/13/16 04:15 Magnesium 3.2 MG/DL (1.8-2.4) H 10/09/16 04:05 Assessment and Plan (1) CKD stage 4 due to type 2 diabetes mellitus Problem details: No indication for renal replacement therapy. Pt is not a good chronic dialysis candidate due to comorbidities. Status: Chronic Assessment and plan: Poor prognosis. Current Visit: No (2) Dementia Status: Chronic Current Visit: No (3) Anemia Status: Chronic Assessment and plan: Iron studies c/w anemia of chronic disease. Adequate stores for erythropoiesis. Continue Epogen TIW. Stool for OB x 3 not resulted. Suspect occult blood loss. Current Visit: No Qualifiers: Anemia type: due to chronic kidney disease Chronic kidney disease stage: stage 4 (severe) Qualified Code(s): N18.4 - Chronic kidney disease, stage 4 ( severe); D63.1 - Anemia in chronic kidney disease (4) Sequela of cerebrovascular accident Status: Acute Current Visit: Yes
[2016-10-13] MEDS: FOLIC ACID 0.4 MG TABLET PO SCH ×2 (09:15→21:44)
[2016-10-13] MEDS: BACITRACIN OINT 0.9 GM PACK TOP SCH (09:15)
[2016-10-13] MEDS: SERTRALINE 25 MG TABLET PO SCH (09:15)
[2016-10-13] MEDS: TAMSULOSIN 0.4 MG CAPSULE PO SCH (09:15)
[2016-10-13] MEDS: CYANOCOBALAMIN 500 MCG TABLET PO SCH ×2 (09:15→21:44)
[2016-10-13] MEDS: FINASTERIDE 5 MG TABLET PO SCH (09:16)
[2016-10-13] MEDS: LANSOPRAZOLE ODT 30 MG TABLET PO SCH ×2 (09:16→21:45)
[2016-10-13] MEDS: AMIODARONE 200 MG TABLET PO SCH (09:18)
[2016-10-13] MEDS: EPOETIN ALFA 10,000 UNIT/1 ML VIAL SUBCUT SCH (09:20)
[2016-10-13] MEDS: PREGABALIN 75 MG CAPSULE PO SCH ×2 (09:20→21:51)
[2016-10-13] MEDS: DILTIAZEM 60 MG TABLET PO SCH ×4 (09:49→21:51)
[2016-10-13] MEDS: ISOSORBIDE MONONITRATE 30 MG TABLET PO SCH (09:50)
[2016-10-13] MEDS: amLODIPine 5 MG TABLET PO SCH ×2 (09:51→21:44)
[2016-10-13] MEDS: METOPROLOL TARTRATE 50 MG TABLET PO SCH ×3 (09:51→21:45)
--- NOTE | 2016-10-13 10:10 | Hospitalist Progress Note ---
Assessment and Plan (1) Pneumonia Status: Acute Assessment and plan: ESBL E.coli in bronch washing. on Merrem. CXR without significant change Current Visit: No Qualifiers: Pneumonia type: aspiration pneumonia Aspiration pneumonia type: due to gastric secretions Laterality: unspecified laterality Lung location: unspecified part of lung Qualified Code(s): J69.0 - Pneumonitis due to inhalation of food and vomit (2) Anemia Status: Chronic Assessment and plan: Patient receives Epogen 3 times per week, related to his chronic anemia secondary to chronic kidney disease. Occult blood is positive suggesting GI blood losses. This is an acute on chronic process that is multifactorial related to his chronic kidney disease and acute GI blood loss. Current Visit: No Qualifiers: Anemia type: due to chronic kidney disease Chronic kidney disease stage: stage 4 (severe) Qualified Code(s): N18.4 - Chronic kidney disease, stage 4 ( severe); D63.1 - Anemia in chronic kidney disease (3) Bedbound patient Status: Chronic Current Visit: No (4) Hypertension Status: Chronic Current Visit: No Qualifiers: Hypertension type: essential hypertension Qualified Code(s): I10 - Essential (primary) hypertension (5) Diabetes mellitus Status: Chronic Current Visit: No Qualifiers: Diabetes mellitus type: type 2 Diabetes mellitus complication detail: with other kidney complication Diabetes mellitus residential insulin use: with terminal carman use (6) Acute on chronic renal failure Status: Acute Current Visit: No Qualifiers: Chronic kidney disease stage: stage 4 (severe) (7) CKD stage 4 due to type 2 diabetes mellitus Problem details: No indication for renal replacement therapy. Pt is not a good chronic dialysis candidate due to comorbidities. Status: Chronic Current Visit: No (8) Iron deficiency anemia Problem details: Adequate iron saturations for erythropoiesis after replacement. Status: Chronic Current Visit: No (9) Patient is Latter-day Status: Chronic Current Visit: Yes (10) Congestive heart failure Status: Acute Assessment and plan: preserved EF of 60%. Has diastolic syfxn- grade 2 by echo from August 2016 Normal left ventricular size, with mild eccentric hypertrophy, more prominent on the septum. There is no outflow tract obstruction. Normal systolic function, estimated left ventricular ejection fraction 60%. Grade 2 diastolic dysfunction. Mild mitral valve sclerosis. Mild mitral valve regurgitation. Aortic valve sclerosis, without stenosis, with mild insufficiency. Mild pulmonary hypertension. Mild pulmonic valve insufficiency. Current Visit: Yes Qualifiers: Congestive heart failure type: diastolic Congestive heart failure chronicity: acute on chronic Qualified Code(s): I50.33 - Acute on chronic diastolic (congestive) heart failure Hospitalist: Subjective Interval history: Patient seen and examined. No acute events overnight. Case discussed with nursing staff. Labs reviewed. Labs show hypokalemia, hypo-nature uremia. Will reduce free water flush with tube feeds. He is very edematous. Overall very poor prognosis. Occult blood is positive. Exam - Constitutional Vitals: Period Temp Pulse Resp BP Sys/Crespo Pulse Ox Last 24 Hr 98.5 F-99 F 63-77 12-114 101-137/36-61 89-100 Exam: Constitutional System: No distress. No tremulousness. Pale and ill-appearing Head: Normocephalic, atraumatic. Ears, Nose and Throat System: No pain or tenderness. No epistaxis or discharge. ET tube in place Eyes System: Pupils equal, round, and reactive. Extraocular muscles intact. Neck: Supple, without adenopathy, No jugular venous distention. Respiratory System: Chest clear to auscultation. Cardiovascular System: Heart with regular rate and rhythm. No murmur. GI System: Abdomen soft, nontender. Normo active bowel sounds present. Musculoskeletal System: limbs with edema. Full distal pulses. Multiple amputations involving numerous toes. Skin ulcerations and abrasions noted on bilateral feet-these were present on admission. Neurological System: Intubated and sedated Psychiatric System: Unobtainable secondary to patient's condition Results - Labs CBC & BMP: 10/11/16 04:05 10/13/16 04:15 Lab Results: I have reviewed the past 24 hour labs
--- NOTE | 2016-10-13 10:39 | Infectious Disease Progress ---
Assessment and Plan (1) Aspiration pneumonia Status: Acute Assessment and plan: ESBL E. coli isolated from sputum once again. Patient with respiratory failure. He has recurrent aspiration likely, due to debilitated state from past stroke. Chest x-ray much improved in appearance he does not have any significant endotracheal secretions. White blood cell count has been normal. Recommendations: Continue meropenem for another day to complete 8 days of therapy. Current Visit: Yes Qualifiers: Aspiration pneumonia type: due to gastric secretions Lung location: unspecified part of lung (2) Sequela of cerebrovascular accident Status: Acute Current Visit: Yes (3) Acute on chronic renal failure Status: Acute Current Visit: No Qualifiers: Chronic kidney disease stage: stage 4 (severe) (4) Dementia Status: Chronic Current Visit: No (5) Diabetes mellitus Status: Chronic Current Visit: No Qualifiers: Diabetes mellitus type: type 2 Diabetes mellitus complication detail: with other kidney complication Diabetes mellitus half-way insulin use: with civil cad tech use (6) Hypertension Status: Chronic Current Visit: No Qualifiers: Hypertension type: essential hypertension Qualified Code(s): I10 - Essential (primary) hypertension (7) Positive blood culture Status: Acute Assessment and plan: MSShominis in 1 of 2 sets of blood cultures indicative of contamination. Current Visit: Yes Infectious Disease - PN: Subj Interval history: Patient has not had any fever, he has been arousable and follows simple commands. He remains severely anemic with evidence of GI bleed. Infectious Disease Exam (PN) - Constitutional Vitals: Temp Pulse Resp BP Pulse Ox 98.8 F 65 12 115/44 100 10/13/16 04:00 10/13/16 09:49 10/13/16 08:53 10/13/16 09:49 10/13/16 07:07 General appearance: over weight Exam: - Gen Arousable - Eye Eye exam: Present: EOMI. no icterus Pupils: Present: JOVANY - Respiratory Respiratory exam: no added sounds heard - Cardiovascular Cardiovascular exam: regular rate and rhythm, no murmurs - GI/Abdominal GI/Abdominal exam: Sluggish bowel sounds, soft, non-tender, no organomegaly or mass - Extremities Exam Extremities exam: Generalized edema - Skin Skin exam: excoriated rash to dorsum of feet Results - Labs CBC & BMP: 10/11/16 04:05 10/13/16 04:15 Lab Results: I have reviewed the past 24 hour labs - Diagnostic Findings Procedure: Chest x-ray: image reviewed by me, report reviewed by me (Chest x- ray looks much better, left lung now clear, now mild haziness in right base)
[2016-10-13] MEDS: DESITIN 4OZ/NYSTATIN 15 GRAM MIXTURE PASTE TOP SCH ×2 (13:07→21:45)
[2016-10-13] MEDS: POTASSIUM CHLORIDE RIDER 10 MEQ in PREMIX 1 EACH IV PRN ×4 (14:03→17:06)
[2016-10-13] MEDS: ASPIRIN CHEW 81 MG TABLET PO SCH (21:44)
[2016-10-13] MEDS: INSULIN GLARGINE 100 UNIT/ML SUBCUT SCH (21:44)
[2016-10-14] MEDS: ALBUTEROL 2.5 MG/3 ML NEB RESP TX SCH ×5 (00:11→23:53)
[2016-10-14] MEDS: INSULIN REGULAR 100 UNIT/ML SUBCUT SCH ×4 (00:43→17:58)
[2016-10-14] MEDS: PROPOFOL 1,000 MG/100 ML BOTTLE IV SCH (01:12)
[2016-10-14] MEDS: hydrALAZINE 20 MG/1 ML VIAL IV PRN (02:31)
[2016-10-14] MEDS: MEROPENEM 500 MG in SODIUM CHLORIDE 0.9% 100 ML IV SCH (06:11)
--- NOTE | 2016-10-14 08:12 | Pulmonology Progress Note ---
Pulmonary - PN: Subj Interval history: Patient is a 61-year-old white man that is very debilitated. 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 He has chronic renal failure with anemia chronic disease and does not want blood because the family is Confucianist. He now has congestive heart failure and possible pneumonia. He developed worsening respiratory distress and basically had an arrest. Now he is on the ventilator again. The patient has been having positive stool for blood. He does have some right lower lobe pneumonia with ESBL E. coli growing out of bronchial washings. The patient looks comfortable on IMV. He has done CPAP for about an hour. He is still severely anemic. Exam (Progress Note) - Constitutional Vitals: Period Temp Pulse Resp BP Sys/Crespo Pulse Ox Last 24 Hr 97.0 F-98.0 F 62-80 8-20 102-160/42-85 92-100 Exam: General appearance: the patient is grimacing and responding a little but still does not do much activity. He is stable on the ventilator at present. - Head Head exam: Present: normal inspection, normocephalic - Eye Eye exam: Present: EOMI. Absent: scleral icterus Pupils: Present: JOVANY - ENT ENT exam: Present: The ET tube is in good position. - Neck Neck exam: Present: normal inspection. Absent: lymphadenopathy, thyromegaly - Respiratory Respiratory exam: Present: He has equal breath sounds bilaterally is moving air reasonably well without any significant wheezing. He has some mild crackles in the bases. - Cardiovascular Cardiovascular exam: Present: regular rate and rhythm, systolic murmur (He does have a soft murmur). Absent: gallop - GI/Abdominal GI/Abdominal exam: Present: hypoactive bowel sounds, soft. Absent: organomegaly , tenderness - Extremities Exam Extremities exam: Present: other (Multiple toe amputations). Absent: calf tenderness, edema - Neurological Exam Neurological exam: Present: He is grimacing and responding a little. He does not move much. - Psychiatric Psychiatric exam: Absent: anxious - Skin Skin exam: Present: warm, pallor Results - Labs CBC & BMP: 10/11/16 04:05 10/13/16 04:15 Assessment and Plan (1) History of multiple strokes Status: Chronic Assessment and plan: The patient has had multiple strokes and is bedridden. He is extremely debilitated. He does have extremely poor pulmonary toilet. He is back on the ventilator again. He is reasonably stable on the ventilator. Current Visit: No (2) Dementia Status: Chronic Assessment and plan: Patient now is status post arrest and his prognosis is poor. He is extremely debilitated. Current Visit: No (3) Diabetes mellitus Status: Chronic Assessment and plan: His glucoses will be monitored. His glucose is 243 this morning. Current Visit: No Qualifiers: Diabetes mellitus type: type 2 Diabetes mellitus complication detail: with other kidney complication Diabetes mellitus roasterman insulin use: with roasterman use (4) Leg ulcer Status: Acute Assessment and plan: The patient has had bilateral leg ulcers. Current Visit: No (5) CKD stage 4 due to type 2 diabetes mellitus Problem details: No indication for renal replacement therapy. Pt is not a good chronic dialysis candidate due to comorbidities. Status: Chronic Assessment and plan: The patient has chronic renal failure and his creatinine is 4.1 . Current Visit: No (6) Chronic respiratory failure Status: Acute Assessment and plan: The patient likely has aspiration pneumonia and chronic respiratory problems. He has very poor pulmonary toilet. He also has a component of heart failure. He is now status post arrest is back on the ventilator. He does have multiorgan system failure. His oxygenation is better. He is stable on the ventilator at present. He does seem to be relatively comfortable on IMV. He did do CPAP reasonably well. We will continue weaning trials for now. Current Visit: Yes (7) Anemia, chronic disease Status: Acute Assessment and plan: The patient has chronic anemia and now his hemoglobin was 4.5 yesterday. He does have positive stool for blood. Current Visit: Yes (8) Congestive heart failure Status: Acute Assessment and plan: Patient's chest x-ray is better and does not look like heart failure now. His volume status looks okay at present. Current Visit: Yes Qualifiers: Congestive heart failure type: diastolic Congestive heart failure chronicity: acute on chronic Qualified Code(s): I50.33 - Acute on chronic diastolic (congestive) heart failure
[2016-10-14] MEDS: METOPROLOL TARTRATE 50 MG TABLET PO SCH ×3 (08:30→20:25)
[2016-10-14] MEDS: TAMSULOSIN 0.4 MG CAPSULE PO SCH (08:30)
[2016-10-14] MEDS: BACITRACIN OINT 0.9 GM PACK TOP SCH (08:30)
[2016-10-14] MEDS: ISOSORBIDE MONONITRATE 30 MG TABLET PO SCH (08:30)
[2016-10-14] MEDS: DILTIAZEM 60 MG TABLET PO SCH ×4 (08:30→20:25)
[2016-10-14] MEDS: AMIODARONE 200 MG TABLET PO SCH (08:30)
[2016-10-14] MEDS: FERROUS SULFATE 300 MG/5 ML UDCUP NG SCH ×2 (08:30→20:20)
[2016-10-14] MEDS: FOLIC ACID 0.4 MG TABLET PO SCH ×2 (08:30→20:21)
[2016-10-14] MEDS: LANSOPRAZOLE ODT 30 MG TABLET PO SCH ×2 (08:31→20:20)
[2016-10-14] MEDS: amLODIPine 5 MG TABLET PO SCH ×2 (08:31→20:21)
[2016-10-14] MEDS: FINASTERIDE 5 MG TABLET PO SCH (08:31)
[2016-10-14] MEDS: CYANOCOBALAMIN 500 MCG TABLET PO SCH ×2 (08:31→20:20)
[2016-10-14] MEDS: SERTRALINE 25 MG TABLET PO SCH (08:32)
[2016-10-14] MEDS: DESITIN 4OZ/NYSTATIN 15 GRAM MIXTURE PASTE TOP SCH ×2 (08:32→20:25)
[2016-10-14] MEDS: PREGABALIN 75 MG CAPSULE PO SCH ×2 (08:50→20:37)
--- NOTE | 2016-10-14 09:40 | Infectious Disease Progress ---
Assessment and Plan (1) Aspiration pneumonia Status: Acute Assessment and plan: ESBL E. coli isolated from sputum once again. Patient with respiratory failure. He has recurrent aspiration likely, due to debilitated state from past stroke. Chest x-ray much improved in appearance he does not have any significant endotracheal secretions. White blood cell count has been normal. Recommendations: Stop meropenem patient has completed 8 days of therapy with good effect. Continue supportive care. I will sign off. Call again as needed. 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 Treatment not indicated. Current Visit: Yes Infectious Disease - PN: Subj Interval history: Patient doing the same no clinical change still with occult blood positive stools. Afebrile. Not requiring vasopressor support. No significant secretions from endotracheal tubes. Infectious Disease Exam (PN) - Constitutional Vitals: Temp Pulse Resp BP Pulse Ox 97.0 F L 82 12 162/55 100 10/14/16 06:00 10/14/16 08:30 10/14/16 08:56 10/14/16 08:30 10/14/16 07:25 General appearance: over weight Exam: - Gen Arousable - Eye Eye exam: Present: EOMI. no icterus Pupils: Present: JOVANY - Respiratory Respiratory exam: Clear - Cardiovascular Cardiovascular exam: regular rate and rhythm, no murmurs - GI/Abdominal GI/Abdominal exam: Sluggish bowel sounds, soft, non-tender, no organomegaly or mass - Extremities Exam Extremities exam: Generalized edema - Skin Skin exam: excoriated rash to dorsum of feet Results - Labs CBC & BMP: 10/11/16 04:05 10/13/16 04:15 Lab Results: I have reviewed the past 24 hour labs
--- NOTE | 2016-10-14 09:57 | Nephrology Progress Note ---
Nephrology - PN: Subj Interval history: Intubated, ventilated. Unresponsive. No labs today. Stool 4+ heme positive. Exam (PN)-Nephrology - Vital Signs Vital signs: Period Temp Pulse Resp BP Sys/Crespo Pulse Ox Last 24 Hr 97.0 F-98.0 F 62-95 8-19 102-162/42-85 92-100 - General Appearance General appearance: obese, chronically ill, sedated on ventilator, intubated EENT: ATNC, PERRL Neck: no JVD, no thyromegaly Respiratory: no kyphosis, rales Cardiology: no murmurs, no rub Gastrointestinal: normoactive bowel sounds, no tenderness Integumentary: no rash, warm and dry Neurologic: no asterixis, obtunded Musculoskeletal: no deformities, no erythema - Lab 10/11/16 04:05 10/13/16 04:15 Most recent lab results ABG pH 7.452 (7.35-7.45) H 10/11/16 03:31 ABG pCO2 39.1 MM HG (35-48) 10/11/16 03:31 ABG pO2 175.0 MM HG (80-95) H 10/11/16 03:31 ABG HCO3 27.3 MMOL/L (20-26) H 10/11/16 03:31 ABG O2 Saturation 100.0 % (95-100) 10/11/16 03:31 Calcium 6.5 MG/DL (8.5-10.1) L 10/13/16 04:15 Phosphorus 7.4 MG/DL (2.5-4.9) H 10/13/16 04:15 Magnesium 3.2 MG/DL (1.8-2.4) H 10/09/16 04:05 Assessment and Plan (1) CKD stage 4 due to type 2 diabetes mellitus Problem details: No indication for renal replacement therapy. Pt is not a good chronic dialysis candidate due to comorbidities. Status: Chronic Assessment and plan: Poor prognosis. Continue conservative/expectant care. Current Visit: No (2) Dementia Status: Chronic Current Visit: No (3) Anemia Status: Chronic Assessment and plan: Iron studies c/w anemia of chronic disease. Adequate stores for erythropoiesis. Continue Epogen TIW. Stool for OB x 3 not resulted. Suspect occult blood loss. Current Visit: No Qualifiers: Anemia type: due to chronic kidney disease Chronic kidney disease stage: stage 4 (severe) Qualified Code(s): N18.4 - Chronic kidney disease, stage 4 ( severe); D63.1 - Anemia in chronic kidney disease (4) Sequela of cerebrovascular accident Status: Acute Current Visit: Yes
--- NOTE | 2016-10-14 10:27 | Gastrointestinal Progress Note ---
Assessment and Plan (1) PEG tube malfunction Status: Acute Assessment and plan: 10/14-findings 4+ heme positive stools and hemoglobin continued to trend downward now at 4.5 as of last check. Patient is Jehovah witness. No overt bleeding witnessed. Recheck hemoglobin today. Plan an addendum to follow Dr. Leo. 10/03-history of PEG placement at outside facility now noted to be leaking and upon further assessment found to be dislodged. Welsh catheter currently in place. Patient for PEG replacement today. Plan an addendum to follow Dr. Leo. Current Visit: Yes Gastroenterology - PN: Subj Interval history: CC: Heme positive stools Patient is seen, intubated and unresponsive. He was seen earlier in this hospitalization by Dr. Leo for non-endoscopic PEG tube replacement. He was initially admitted with pneumonia and hypoxia with a history of multiple CVAs in the past. He is noted to be a Islam as well. Since admission on 09/30, his hemoglobin at that time was 8.3 and has trended downward with most recent hemoglobin on 10/11 noted to be 4.5. He has received Epogen injections 3 times weekly related to his chronic anemia which is secondary due to his history of CKD. He has had stools for occult blood checked and noticed of a 4+ positive. Nursing staff states they are not seeing any overt bleeding at this time. There is uncertainty as to his endoscopy history due to nothing in our facility database and no family present during visit. Abdomen is soft, nontender. He is currently receiving tube feedings and tolerating these. ROS: No acute distress noted at present. Exam (Progress Note) - Constitutional Vitals: Period Temp Pulse Resp BP Sys/Crespo Pulse Ox Last 24 Hr 97.0 F-98.0 F 62-95 8-19 102-162/42-85 92-100 General appearance: normal weight, no acute distress - Head Head exam: Present: normal inspection, normocephalic - Eye Eye exam: Present: other (Lids and conjunctive are unremarkable). Absent: scleral icterus - ENT ENT exam: Present: normal exam, normal oropharynx - Neck Neck exam: Present: normal inspection - Respiratory Respiratory exam: Present: clear to auscultation bilaterally. Absent: rales, rhonchi, wheezes - Cardiovascular Cardiovascular exam: Present: regular rate and rhythm. Absent: diastolic murmur , JVD, systolic murmur - GI/Abdominal GI/Abdominal exam: Present: normal bowel sounds, soft. Absent: ascites, distended, mass, organomegaly, tenderness - Extremities Exam Extremities exam: Present: normal inspection, full ROM - Back Exam Back exam: Present: normal inspection - Neurological Exam Neurological exam: Present: other - Psychiatric Psychiatric exam: Present: other - Skin Skin exam: Present: warm, dry, pallor Results - Labs CBC & BMP: 10/11/16 04:05 10/13/16 04:15 Lab Results: I have reviewed the past 24 hour labs
[2016-10-14 11:03] LABS: Hemoglobin 4.3 GM/DL (14.0-18.0)
[2016-10-14 11:04] LABS: Hematocrit 11.6 VOL% (42.0-52.0)
--- NOTE | 2016-10-14 14:57 | Hospitalist Progress Note ---
Assessment and Plan (1) Pneumonia Status: Acute Assessment and plan: ESBL E.coli in bronch washing. on Merrem. CXR without significant change Current Visit: No Qualifiers: Pneumonia type: aspiration pneumonia Aspiration pneumonia type: due to gastric secretions Laterality: unspecified laterality Lung location: unspecified part of lung Qualified Code(s): J69.0 - Pneumonitis due to inhalation of food and vomit (2) Anemia Status: Chronic Assessment and plan: Patient receives Epogen 3 times per week, related to his chronic anemia secondary to chronic kidney disease. Occult blood is positive suggesting GI blood losses. This is an acute on chronic process that is multifactorial related to his chronic kidney disease and acute GI blood loss. Current Visit: No Qualifiers: Anemia type: due to chronic kidney disease Chronic kidney disease stage: stage 4 (severe) Qualified Code(s): N18.4 - Chronic kidney disease, stage 4 ( severe); D63.1 - Anemia in chronic kidney disease (3) Bedbound patient Status: Chronic Current Visit: No (4) Hypertension Status: Chronic Current Visit: No Qualifiers: Hypertension type: essential hypertension Qualified Code(s): I10 - Essential (primary) hypertension (5) Diabetes mellitus Status: Chronic Current Visit: No Qualifiers: Diabetes mellitus type: type 2 Diabetes mellitus complication detail: with other kidney complication Diabetes mellitus halfway insulin use: with terminal operations manager use (6) Acute on chronic renal failure Status: Acute Current Visit: No Qualifiers: Chronic kidney disease stage: stage 4 (severe) (7) CKD stage 4 due to type 2 diabetes mellitus Problem details: No indication for renal replacement therapy. Pt is not a good chronic dialysis candidate due to comorbidities. Status: Chronic Current Visit: No (8) Iron deficiency anemia Problem details: Adequate iron saturations for erythropoiesis after replacement. Status: Chronic Current Visit: No (9) Patient is Hoahaoism Status: Chronic Current Visit: Yes (10) Congestive heart failure Status: Acute Assessment and plan: preserved EF of 60%. Has diastolic syfxn- grade 2 by echo from August 2016 Normal left ventricular size, with mild eccentric hypertrophy, more prominent on the septum. There is no outflow tract obstruction. Normal systolic function, estimated left ventricular ejection fraction 60%. Grade 2 diastolic dysfunction. Mild mitral valve sclerosis. Mild mitral valve regurgitation. Aortic valve sclerosis, without stenosis, with mild insufficiency. Mild pulmonary hypertension. Mild pulmonic valve insufficiency. Current Visit: Yes Qualifiers: Congestive heart failure type: diastolic Congestive heart failure chronicity: acute on chronic Qualified Code(s): I50.33 - Acute on chronic diastolic (congestive) heart failure (11) GI bleed Status: Acute Assessment and plan: Consult Dr. Leo Current Visit: Yes Hospitalist: Subjective Interval history: Patient seen and examined. No acute events overnight. Case discussed with nursing staff. Labs reviewed. GI consult placed for heme positive stools with severe anemia Exam - Constitutional Vitals: Period Temp Pulse Resp BP Sys/Crespo Pulse Ox Last 24 Hr 97.0 F-98.0 F 60-95 12-18 102-164/38-85 92-100 Exam: Constitutional System: No distress. No tremulousness. Pale and ill-appearing Head: Normocephalic, atraumatic. Ears, Nose and Throat System: No pain or tenderness. No epistaxis or discharge. ET tube in place Eyes System: Pupils equal, round, and reactive. Extraocular muscles intact. Neck: Supple, without adenopathy, No jugular venous distention. Respiratory System: Chest clear to auscultation. Cardiovascular System: Heart with regular rate and rhythm. No murmur. GI System: Abdomen soft, nontender. Normo active bowel sounds present. Musculoskeletal System: limbs with edema. Full distal pulses. Multiple amputations involving numerous toes. Skin ulcerations and abrasions noted on bilateral feet-these were present on admission. Neurological System: Intubated and sedated Psychiatric System: Unobtainable secondary to patient's condition Results - Labs CBC & BMP: 10/14/16 10:49 10/13/16 04:15 Lab Results: I have reviewed the past 24 hour labs
[2016-10-14] MEDS: INSULIN GLARGINE 100 UNIT/ML SUBCUT SCH (20:20)
[2016-10-15] MEDS: INSULIN REGULAR 100 UNIT/ML SUBCUT SCH ×4 (00:19→17:38)
[2016-10-15 04:05] LABS: ABG Base Excess -1.8 MMOL/L (-2.5-2.5); ABG HCO3 22.8 MMOL/L (20-26); ABG Oxygen Saturation 95.6 % (95-100); ABG PCO2 38.8 MM HG (35-48); ABG PH 7.382 (7.35-7.45); ABG PO2 78.2 MM HG (80-95); ABG TCO2 22.7 MMOL/L (23-27); Allen Test Positive; Pt O2 Delivery Device Ventilator
[2016-10-15 05:19] LABS: Calcium 8.1 MG/DL (8.5-10.1); Osmolality,Calculated 316.9 MOS/KG (273-304); Potassium 3.5 MMOL/L (3.5-5.1)
--- NOTE | 2016-10-15 07:15 | XRay Report ---
History: Patient on ventilator Date: 10/15/2016 Study: Chest x-ray AP portable Comparison exam: October 12, 2016 The endotracheal tube and right IJ central line remain in satisfactory position. There is continued cardiomegaly. The mediastinal contours are stable. The pulmonary vasculature is slightly prominent. There is some patchy and hazy edema/infiltrate in either mid to lower lung zone, increased on the left compared to the previous study. There is right greater than left pleural effusion, the same or minimally increased on the right. The osseous structures are unchanged. Impression: Continued bibasilar pulmonary edema/infiltrate and right greater than left pleural effusion. The edema/infiltrate in the left lower lung is slightly increased compared to the previous study. At least an element of CHF is suspected PROCEDURE INTERPRETED AT [facility] DEPARTMENT OF RADIOLOGY Final Report Signed by: Dr. Nahomi Leo
[2016-10-15] MEDS: ALBUTEROL 2.5 MG/3 ML NEB RESP TX SCH ×3 (07:26→19:41)
--- NOTE | 2016-10-15 08:52 | Pulmonology Progress Note ---
Pulmonary - PN: Subj Interval history: Patient is a 61-year-old white man that is very debilitated. 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 He has chronic renal failure with anemia chronic disease and does not want blood because the family is Alevism. He now has congestive heart failure and possible pneumonia. He developed worsening respiratory distress and basically had an arrest. Now he is on the ventilator again. The patient has been having positive stool for blood. He does have some right lower lobe pneumonia with ESBL E. coli growing out of bronchial washings. The patient looks comfortable on IMV. Patient has been responding a little better and is comfortable on the ventilator. His blood pressure has been stable but he still very anemic. He still has bibasilar infiltrates. He is doing CPAP at times. Overall he is about the same. Exam (Progress Note) - Constitutional Vitals: Period Temp Pulse Resp BP Sys/Crespo Pulse Ox Last 24 Hr 80 F-98.2 F 60-92 11-19 113-145/38-60 91-100 Exam: General appearance: the patient is grimacing and responding a little but still does not do much activity. He is stable on the ventilator at present. He appears to be hemodynamically stable. - Head Head exam: Present: normal inspection, normocephalic - Eye Eye exam: Present: EOMI. Absent: scleral icterus Pupils: Present: JOVANY - ENT ENT exam: Present: The ET tube is in good position. - Neck Neck exam: Present: normal inspection. Absent: lymphadenopathy, thyromegaly - Respiratory Respiratory exam: Present: He has equal breath sounds bilaterally is moving air reasonably well without any significant wheezing. He has some mild crackles in the bases. His lungs sound about the same. - Cardiovascular Cardiovascular exam: Present: regular rate and rhythm, systolic murmur (He does have a soft murmur). Absent: gallop - GI/Abdominal GI/Abdominal exam: Present: hypoactive bowel sounds, soft. Absent: organomegaly , tenderness - Extremities Exam Extremities exam: Present: other (Multiple toe amputations). Absent: calf tenderness, edema - Neurological Exam Neurological exam: Present: He is grimacing and responding a little. He does not move much. - Psychiatric Psychiatric exam: Absent: anxious - Skin Skin exam: Present: warm, pallor Results - Labs CBC & BMP: 10/14/16 10:49 10/15/16 Unknown Labs: PO2 78 with a PCO2 of 38 and a pH of 7.38 - Diagnostic Findings Procedure: Chest x-ray: image reviewed by me, report reviewed by me (Chest x- ray still shows right lower lobe consolidation with some mild infiltrate on the left.) Assessment and Plan (1) History of multiple strokes Status: Chronic Assessment and plan: The patient has had multiple strokes and is bedridden. He is extremely debilitated. He does have extremely poor pulmonary toilet. He is back on the ventilator again. He is reasonably stable on the ventilator. He does respond a little better now. Current Visit: No (2) Dementia Status: Chronic Assessment and plan: Patient now is status post arrest and his prognosis is poor. He is extremely debilitated. Current Visit: No (3) Diabetes mellitus Status: Chronic Assessment and plan: His glucoses will be monitored. His glucose is 174 this morning. Current Visit: No Qualifiers: Diabetes mellitus type: type 2 Diabetes mellitus complication detail: with other kidney complication Diabetes mellitus intermediate frame tender insulin use: with intermediate frame tender use (4) Leg ulcer Status: Acute Assessment and plan: The patient has had bilateral leg ulcers. He has been followed by wound care. Current Visit: No (5) CKD stage 4 due to type 2 diabetes mellitus Problem details: No indication for renal replacement therapy. Pt is not a good chronic dialysis candidate due to comorbidities. Status: Chronic Assessment and plan: The patient has chronic renal failure and his creatinine is 4.5 . Current Visit: No (6) Chronic respiratory failure Status: Acute Assessment and plan: The patient likely has aspiration pneumonia and chronic respiratory problems. He has very poor pulmonary toilet. He also has a component of heart failure. He is now status post arrest is back on the ventilator. He does have multiorgan system failure. His oxygenation is better. He is stable on the ventilator at present. He does seem to be responding a little better. We will continue weaning trials. Current Visit: Yes (7) Anemia, chronic disease Status: Acute Assessment and plan: The patient has chronic anemia and now his hemoglobin was 4.3 yesterday. He does have positive stool for blood. GI is evaluating. Current Visit: Yes (8) Congestive heart failure Status: Acute Assessment and plan: Patient's chest x-ray is better and does not look like heart failure now. His volume status looks okay at present. Current Visit: Yes Qualifiers: Congestive heart failure type: diastolic Congestive heart failure chronicity: acute on chronic Qualified Code(s): I50.33 - Acute on chronic diastolic (congestive) heart failure
[2016-10-15] MEDS: PROPOFOL 1,000 MG/100 ML BOTTLE IV SCH ×3 (09:29→19:01)
[2016-10-15] MEDS ORDERED: FUROSEMIDE 100 MG/10 ML VIAL ONE (09:33)
[2016-10-15] MEDS: BACITRACIN OINT 0.9 GM PACK TOP SCH (09:35)
[2016-10-15] MEDS: FUROSEMIDE 40 MG/4 ML VIAL IV SCH ×2 (09:35→15:15)
[2016-10-15] MEDS: AMIODARONE 200 MG TABLET PO SCH (09:36)
[2016-10-15] MEDS: DILTIAZEM 60 MG TABLET PO SCH ×4 (09:36→20:03)
[2016-10-15] MEDS: EPOETIN ALFA 10,000 UNIT/1 ML VIAL SUBCUT SCH (09:37)
[2016-10-15] MEDS: TAMSULOSIN 0.4 MG CAPSULE PO SCH (09:37)
[2016-10-15] MEDS: FOLIC ACID 0.4 MG TABLET PO SCH ×2 (09:37→20:03)
[2016-10-15] MEDS: FERROUS SULFATE 300 MG/5 ML UDCUP NG SCH ×2 (09:37→20:02)
[2016-10-15] MEDS: ISOSORBIDE DINITRATE 10 MG TABLET PO SCH ×2 (09:38→20:04)
[2016-10-15] MEDS: METOPROLOL TARTRATE 50 MG TABLET PO SCH ×3 (09:38→20:04)
[2016-10-15] MEDS: amLODIPine 5 MG TABLET PO SCH ×2 (09:39→20:04)
[2016-10-15] MEDS: FINASTERIDE 5 MG TABLET PO SCH (09:39)
[2016-10-15] MEDS: LANSOPRAZOLE ODT 30 MG TABLET PO SCH ×2 (09:39→20:03)
[2016-10-15] MEDS: SERTRALINE 25 MG TABLET PO SCH (09:39)
[2016-10-15] MEDS: CYANOCOBALAMIN 500 MCG TABLET PO SCH ×2 (09:39→20:03)
[2016-10-15] MEDS: DESITIN 4OZ/NYSTATIN 15 GRAM MIXTURE PASTE TOP SCH ×2 (09:39→20:05)
[2016-10-15] MEDS: PREGABALIN 75 MG CAPSULE PO SCH ×2 (10:00→20:03)
--- NOTE | 2016-10-15 10:14 | Gastrointestinal Progress Note ---
Assessment and Plan (1) PEG tube malfunction Status: Acute Assessment and plan: 10/14-findings 4+ heme positive stools and hemoglobin continued to trend downward now at 4.5 as of last check. Patient is Jehovah witness. No overt bleeding witnessed. Recheck hemoglobin today. Plan an addendum to follow Dr. Leo. 10/03-history of PEG placement at outside facility now noted to be leaking and upon further assessment found to be dislodged. Welsh catheter currently in place. Patient for PEG replacement today. Plan an addendum to follow Dr. Leo. Current Visit: Yes (2) Anemia Status: Chronic Assessment and plan: 10/15-no changes at present time. No overt bleeding reported. Discussed with Dr. Leo and at this time will plan to proceed with EGD tomorrow to further evaluate source of anemia and heme positive stools. Father plan an addendum to followed by Dr. Leo peer Current Visit: No Qualifiers: Anemia type: due to chronic kidney disease Chronic kidney disease stage: stage 4 (severe) Qualified Code(s): N18.4 - Chronic kidney disease, stage 4 ( severe); D63.1 - Anemia in chronic kidney disease Gastroenterology - PN: Subj Interval history: CC: Anemia, heme positive stool Patient is seen, remains intubated, unresponsive. No overt bleeding has been reported by nursing staff at this time. Hemoglobin rechecked on yesterday is holding at 4.3. Abdomen is soft. He is continuing CPAP trials at this time. However no changes noted as far as progression from being extubated. Discussed with Dr. Leo and at this time will plan to proceed with EGD tomorrow morning to further evaluate his source of anemia and heme positive stools. ROS: No acute distress noted Exam (Progress Note) - Constitutional Vitals: Period Temp Pulse Resp BP Sys/Crespo Pulse Ox Last 24 Hr 80 F-98.2 F 61-92 11-19 113-145/38-60 91-100 - Other Additional findings: General appearance: normal weight, no acute distress - Head Head exam: Present: normal inspection, normocephalic - Eye Eye exam: Present: other (Lids and conjunctive are unremarkable). Absent: scleral icterus - ENT ENT exam: Present: normal exam, normal oropharynx - Neck Neck exam: Present: normal inspection - Respiratory Respiratory exam: Present: clear to auscultation bilaterally. Absent: rales, rhonchi, wheezes - Cardiovascular Cardiovascular exam: Present: regular rate and rhythm. Absent: diastolic murmur , JVD, systolic murmur - GI/Abdominal GI/Abdominal exam: Present: normal bowel sounds, soft. Absent: ascites, distended, mass, organomegaly, tenderness - Extremities Exam Extremities exam: Present: normal inspection, full ROM - Back Exam Back exam: Present: normal inspection - Neurological Exam Neurological exam: Present: other - Psychiatric Psychiatric exam: Present: other - Skin Skin exam: Present: warm, dry, pallor Results - Labs CBC & BMP: 10/14/16 10:49 10/15/16 Unknown Lab Results: I have reviewed the past 24 hour labs
--- NOTE | 2016-10-15 11:20 | Nephrology Progress Note ---
Nephrology - PN: Subj Interval history: Pt unresponsive, intubated, mechanically ventilated.. Serum Na 129. No edema. FiO2 decreased to .40 with adequate SaO2. Anemia worse with epogen TIW and adequate iron stores. No transfusion due to rastafari beliefs. Exam (PN)-Nephrology - Vital Signs Vital signs: Period Temp Pulse Resp BP Sys/Crespo Pulse Ox Last 24 Hr 80 F-98.2 F 63-92 11-19 105-145/38-66 91-100 - General Appearance General appearance: obese, chronically ill, sedated on ventilator, intubated EENT: ATNC, PERRL, mucous membranes dry Neck: no JVD, no thyromegaly Respiratory: no kyphosis, clear Cardiology: no murmurs, no rub, no edema Gastrointestinal: normoactive bowel sounds, no tenderness Integumentary: no rash, warm and dry Neurologic: obtunded Musculoskeletal: no deformities, no erythema - Lab 10/14/16 10:49 10/15/16 Unknown Most recent lab results ABG pH 7.382 (7.35-7.45) 10/15/16 03:35 ABG pCO2 38.8 MM HG (35-48) 10/15/16 03:35 ABG pO2 78.2 MM HG (80-95) L 10/15/16 03:35 ABG HCO3 22.8 MMOL/L (20-26) 10/15/16 03:35 ABG O2 Saturation 95.6 % (95-100) 10/15/16 03:35 Calcium 8.1 MG/DL (8.5-10.1) L D 10/15/16 Unknown Phosphorus 7.4 MG/DL (2.5-4.9) H 10/13/16 04:15 Magnesium 3.2 MG/DL (1.8-2.4) H 10/09/16 04:05 Assessment and Plan (1) CKD stage 4 due to type 2 diabetes mellitus Problem details: No indication for renal replacement therapy. Pt is not a good chronic dialysis candidate due to comorbidities. Status: Chronic Assessment and plan: Poor prognosis. Continue conservative/expectant care. Current Visit: No (2) Dementia Status: Chronic Current Visit: No (3) Anemia Status: Chronic Assessment and plan: Iron studies c/w anemia of chronic disease. Adequate stores for erythropoiesis. Continue Epogen TIW. Heme pos stools. GI on case. Current Visit: No Qualifiers: Anemia type: due to chronic kidney disease Chronic kidney disease stage: stage 4 (severe) Qualified Code(s): N18.4 - Chronic kidney disease, stage 4 ( severe); D63.1 - Anemia in chronic kidney disease (4) Sequela of cerebrovascular accident Status: Chronic Current Visit: Yes (5) Hyponatremia Problem details: Volume up 3kg by weight. Labs appear prerenal intravascularly with hypochloremic metabolic alkalosis. Low oncotic pressure with albumin in 2 range. Status: Acute Assessment and plan: Lasix IV bid to eliminate excess free water. Urinary indices to assess prerenal vs intrinsic state. Current Visit: Yes
--- NOTE | 2016-10-15 12:58 | Hospitalist Progress Note ---
Assessment and Plan (1) Pneumonia Status: Acute Assessment and plan: ESBL E.coli in bronch washing. on Merrem. CXR with evidence of congestive heart failure Current Visit: No Qualifiers: Pneumonia type: aspiration pneumonia Aspiration pneumonia type: due to gastric secretions Laterality: unspecified laterality Lung location: unspecified part of lung Qualified Code(s): J69.0 - Pneumonitis due to inhalation of food and vomit (2) Anemia Status: Chronic Assessment and plan: Patient receives Epogen 3 times per week, related to his chronic anemia secondary to chronic kidney disease. Occult blood is positive suggesting GI blood losses. This is an acute on chronic process that is multifactorial related to his chronic kidney disease and acute GI blood loss. GI consult reviewed and discussed with ANNAMARIE Marquis Current Visit: No Qualifiers: Anemia type: due to chronic kidney disease Chronic kidney disease stage: stage 4 (severe) Qualified Code(s): N18.4 - Chronic kidney disease, stage 4 ( severe); D63.1 - Anemia in chronic kidney disease (3) Bedbound patient Status: Chronic Current Visit: No (4) Hypertension Status: Chronic Current Visit: No Qualifiers: Hypertension type: essential hypertension Qualified Code(s): I10 - Essential (primary) hypertension (5) Diabetes mellitus Status: Chronic Current Visit: No Qualifiers: Diabetes mellitus type: type 2 Diabetes mellitus complication detail: with other kidney complication Diabetes mellitus termite helper insulin use: with termite helper use (6) Acute on chronic renal failure Status: Acute Current Visit: No Qualifiers: Chronic kidney disease stage: stage 4 (severe) (7) CKD stage 4 due to type 2 diabetes mellitus Problem details: No indication for renal replacement therapy. Pt is not a good chronic dialysis candidate due to comorbidities. Status: Chronic Current Visit: No (8) Iron deficiency anemia Problem details: Adequate iron saturations for erythropoiesis after replacement. Status: Chronic Current Visit: No (9) Patient is Congregation Status: Chronic Current Visit: Yes (10) Congestive heart failure Status: Acute Assessment and plan: preserved EF of 60%. Has diastolic syfxn- grade 2 by echo from August 2016 Normal left ventricular size, with mild eccentric hypertrophy, more prominent on the septum. There is no outflow tract obstruction. Normal systolic function, estimated left ventricular ejection fraction 60%. Grade 2 diastolic dysfunction. Mild mitral valve sclerosis. Mild mitral valve regurgitation. Aortic valve sclerosis, without stenosis, with mild insufficiency. Mild pulmonary hypertension. Mild pulmonic valve insufficiency. Current Visit: Yes Qualifiers: Congestive heart failure type: diastolic Congestive heart failure chronicity: acute on chronic Qualified Code(s): I50.33 - Acute on chronic diastolic (congestive) heart failure (11) GI bleed Status: Acute Assessment and plan: Consult Dr. Leo. Plan for EGD tomorrow. Current Visit: Yes (12) Hyponatremia Problem details: Volume up 3kg by weight. Labs appear prerenal intravascularly with hypochloremic metabolic alkalosis. Low oncotic pressure with albumin in 2 range. Status: Acute Assessment and plan: I agree with Lasix. I have stopped his free water flushes with his tube feeds. Current Visit: Yes Hospitalist: Subjective Interval history: Patient seen and examined. Sodium has been dropping. Case discussed with Dr. Graham. GI consult reviewed. Plan for EGD per Dr. Leo's [employer]NER. Exam - Constitutional Vitals: Period Temp Pulse Resp BP Sys/Crespo Pulse Ox Last 24 Hr 80 F-98.2 F 64-92 11-19 105-145/41-66 91-100 Exam: Constitutional System: No distress. No tremulousness. Pale and ill-appearing. Not receiving sedation and minimally responsive. Head: Normocephalic, atraumatic. Ears, Nose and Throat System: No pain or tenderness. No epistaxis or discharge. ET tube in place Eyes System: Pupils equal, round, and reactive. Extraocular muscles intact. Neck: Supple, without adenopathy, No jugular venous distention. Respiratory System: Chest clear to auscultation. Cardiovascular System: Heart with regular rate and rhythm. No murmur. GI System: Abdomen soft, nontender. Normo active bowel sounds present. Musculoskeletal System: limbs with edema. Full distal pulses. Multiple amputations involving numerous toes. Skin ulcerations and abrasions noted on bilateral feet-these were present on admission. Neurological System: Intubated minimally responsive Psychiatric System: Unobtainable secondary to patient's condition Results - Labs CBC & BMP: 10/14/16 10:49 10/15/16 Unknown Lab Results: I have reviewed the past 24 hour labs
[2016-10-15] MEDS: INSULIN GLARGINE 100 UNIT/ML SUBCUT SCH (20:02)
[2016-10-16] MEDS: ALBUTEROL 2.5 MG/3 ML NEB RESP TX SCH ×5 (00:14→23:55)
[2016-10-16] MEDS: INSULIN REGULAR 100 UNIT/ML SUBCUT SCH ×4 (00:22→17:57)
--- NOTE | 2016-10-16 08:01 | Pulmonology Progress Note ---
Pulmonary - PN: Subj Interval history: Patient is a 61-year-old white man that is very debilitated. 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 He has chronic renal failure with anemia chronic disease and does not want blood because the family is Jain. He now has congestive heart failure and possible pneumonia. He developed worsening respiratory distress and basically had an arrest. Now he is on the ventilator again. The patient has been having positive stool for blood. He does have some right lower lobe pneumonia with ESBL E. coli growing out of bronchial washings. The patient looks comfortable on IMV. Through the night he has had problems maintaining adequate O2 saturation. He continues to have some black melanotic stools. Now he has opacification of his left chest and likely is plugged up. We will proceed with a therapeutic bronchoscopy today. Exam (Progress Note) - Constitutional Vitals: Period Temp Pulse Resp BP Sys/Crespo Pulse Ox Last 24 Hr 97.7 F-98.5 F 58-92 4-16 97-140/33-65 90-100 Exam: General appearance: the patient is grimacing and responding a little but still does not do much activity. He is reasonably comfortable on the ventilator. - Head Head exam: Present: normal inspection, normocephalic - Eye Eye exam: Present: EOMI. Absent: scleral icterus Pupils: Present: JOVANY - ENT ENT exam: Present: The ET tube is in good position. - Neck Neck exam: Present: normal inspection. Absent: lymphadenopathy, thyromegaly - Respiratory Respiratory exam: Present: He has diminished breath sounds on the left compared to the right. - Cardiovascular Cardiovascular exam: Present: regular rate and rhythm, systolic murmur (He does have a soft murmur). Absent: gallop - GI/Abdominal GI/Abdominal exam: Present: hypoactive bowel sounds, soft. Absent: organomegaly , tenderness - Extremities Exam Extremities exam: Present: other (Multiple toe amputations). Absent: calf tenderness, edema - Neurological Exam Neurological exam: Present: He is grimacing and responding a little. He does not move much. - Psychiatric Psychiatric exam: Absent: anxious - Skin Skin exam: Present: warm, pallor Results - Labs CBC & BMP: 10/14/16 10:49 10/15/16 Unknown - Diagnostic Findings Procedure: Chest x-ray: image reviewed by me, report reviewed by me (Chest x- ray shows opacified left chest now.) Assessment and Plan (1) History of multiple strokes Status: Chronic Assessment and plan: The patient has had multiple strokes and is bedridden. He is extremely debilitated. He does have extremely poor pulmonary toilet. He arouses okay but cannot do much. Current Visit: No (2) Dementia Status: Chronic Assessment and plan: Patient now is status post arrest and his prognosis is poor. He is extremely debilitated. Current Visit: No (3) Diabetes mellitus Status: Chronic Assessment and plan: His glucoses will be monitored. His glucose is 160 this morning. Current Visit: No Qualifiers: Diabetes mellitus type: type 2 Diabetes mellitus complication detail: with other kidney complication Diabetes mellitus rn long term care insulin use: with rn long term care use (4) Leg ulcer Status: Acute Assessment and plan: The patient has had bilateral leg ulcers. He has been followed by wound care. Current Visit: No (5) CKD stage 4 due to type 2 diabetes mellitus Problem details: No indication for renal replacement therapy. Pt is not a good chronic dialysis candidate due to comorbidities. Status: Chronic Assessment and plan: The patient has chronic renal failure and his creatinine is 4.5 . His urine output has been on the low side. Current Visit: No (6) Chronic respiratory failure Status: Acute Assessment and plan: The patient likely has aspiration pneumonia and chronic respiratory problems. He has very poor pulmonary toilet. He also has a component of heart failure. He is now status post arrest is back on the ventilator. He does have multiorgan system failure. During the night he dropped his O2 saturations easily. Now he has opacified left chest and is probably plugged up. We will proceed with a therapeutic bronchoscopy this morning. Current Visit: Yes (7) Anemia, chronic disease Status: Acute Assessment and plan: The patient has chronic anemia and now his hemoglobin was 4.3 yesterday. He continues to have some melanotic stools. He will have an EGD this morning. Current Visit: Yes (8) Congestive heart failure Status: Acute Assessment and plan: Patient's chest x-ray is better and does not look like heart failure now. His volume status looks okay at present. Current Visit: Yes Qualifiers: Congestive heart failure type: diastolic Congestive heart failure chronicity: acute on chronic Qualified Code(s): I50.33 - Acute on chronic diastolic (congestive) heart failure
--- NOTE | 2016-10-16 08:16 | XRay Report ---
History: Patient on ventilator Date: 10/16/2016 Study: Chest x-ray AP portable Comparison exam: 10/15/2016 The endotracheal tube and right IJ central line remain in satisfactory position. There is complete opacification of the left hemithorax related to interval development of some prominent left lung atelectasis. There is patchy and hazy edema/infiltrate in the right lung base as before, slightly improved. There is continued mild right pleural effusion. There is no pneumothorax. Osseous structures are unchanged. Impression: Complete opacification of the left hemithorax related to interval development of left lung atelectasis. Consider underlying mucous plugging. PROCEDURE INTERPRETED AT [facility] DEPARTMENT OF RADIOLOGY Final Report Signed by: Dr. Nahomi Leo
[2016-10-16] MEDS: BACITRACIN OINT 0.9 GM PACK TOP SCH (08:40)
[2016-10-16] MEDS: FUROSEMIDE 40 MG/4 ML VIAL IV SCH (08:40)
[2016-10-16] MEDS: AMIODARONE 200 MG TABLET PO SCH (08:41)
[2016-10-16] MEDS: FERROUS SULFATE 300 MG/5 ML UDCUP NG SCH ×2 (08:41→20:18)
[2016-10-16] MEDS: TAMSULOSIN 0.4 MG CAPSULE PO SCH (08:41)
[2016-10-16] MEDS: FOLIC ACID 0.4 MG TABLET PO SCH ×2 (08:41→20:18)
[2016-10-16] MEDS: FINASTERIDE 5 MG TABLET PO SCH (08:42)
[2016-10-16] MEDS: SERTRALINE 25 MG TABLET PO SCH (08:42)
[2016-10-16] MEDS: LANSOPRAZOLE ODT 30 MG TABLET PO SCH ×2 (08:42→20:19)
[2016-10-16] MEDS: CYANOCOBALAMIN 500 MCG TABLET PO SCH ×2 (08:42→20:19)
[2016-10-16] MEDS: DESITIN 4OZ/NYSTATIN 15 GRAM MIXTURE PASTE TOP SCH ×2 (08:42→20:20)
[2016-10-16] MEDS: PREGABALIN 75 MG CAPSULE PO SCH ×2 (08:42→20:18)
--- NOTE | 2016-10-16 08:51 | Operative Note ---
Date of procedure: 10/16/16 Pre-op diagnosis: Left lung atelectasis Post-op diagnosis: other (Mucous plugging and retained secretions) Procedure: The patient is a 61-year-old man is very debilitated on the ventilator. He now has left lung atelectasis. A therapeutic bronchoscopy will be done to clear airways. Procedure: The fiberoptic bronchoscope was passed to the ET tube into the airways. The bronchopulmonary segments were identified but no specimens obtained. Findings: The ET tube is in good position in the trachea. There are some thick secretions in the ET tube and in the trachea. The left lower lobe, lingula, and left upper lobe has some mucosal swelling are narrowed. There are some thick secretions that were washed and cleared in the left lung. The right upper lobe right middle lobe and right lower lobe are all open. Once the left lung was irrigated and cleared of secretions the procedure was stopped. He tolerated the procedure well without problems. Impression: Left lung atelectasis due to retained secretions and mucous plugging. Plan: We will continue ventilatory support. Anesthesia: conscious sedation Surgeon / Physician: Brett Lord Estimated blood loss: none Specimens: none sent Condition: critical Disposition: ICU Results - Labs CBC & BMP: 10/14/16 10:49 10/15/16 Unknown Discharge Plan - Discharge Medications No Action Sertraline [Zoloft] 25 mg PO DAILY Pregabalin [Lyrica] 225 mg PO BID Metoprolol Tartrate 50 mg PO TID Methocarbamol 500 mg PO BID PRN PRN Reason: Pain Tamsulosin [Flomax] 0.4 mg PO DAILY Finasteride 5 mg PO DAILY cloNIDine TAB [Catapres Tab] 0.1 mg PO Q4H Aspirin EC Tab 81 mg PO QPM Valsartan 80 mg PO QID Pantoprazole Tab [Protonix Tab] 40 mg PO DAILY Simvastatin 20 mg PO BEDTIME Albuterol/Ipratropium Neb [Duoneb] 3 ml RESP TX RT Q4H #120 vial Folic Acid Tab 0.4 mg PO BID #60 tablet Albuterol/Ipratropium Neb [Duoneb] 3 ml RESP TX RT Q4H cloNIDine TAB [Catapres Tab] 0.1 mg PO Q4H Cyanocobalamin Tab [Vitamin B12 Tab] 500 mcg PO BID Ferrous Sulfate Tab [Feosol Original Tab] 325 mg PO BID Finasteride [Proscar] 5 mg PO DAILY Folic Acid Tab 0.4 mg PO BID Isosorbide Mononitrate [Imdur] 30 mg PO DAILY Methocarbamol Tab [Robaxin Tab] 500 mg PO BID PRN PRN Reason: Pain Pantoprazole Tab [Protonix Tab] 40 mg PO DAILY Pregabalin [Lyrica] 225 mg PO BID Sertraline [Zoloft] 25 mg PO DAILY Simvastatin 20 mg PO QPM Valsartan 80 mg PO QID Isosorbide Mononitrate [Imdur] 30 mg PO DAILY Ferrous Sulfate 325 mg PO BID Acetaminophen Tab [Tylenol Tab] 325 mg PO Q4H PRN tablet PRN Reason: fever, headache/body aches Cyanocobalamin Tab [Vitamin B12 Tab] 500 mcg PO BID #60 tablet Insulin Glargine [Lantus] 15 unit SUBCUT BEDTIME #1 packet Acetaminophen Tab [Tylenol Tab] 325 mg PO Q4H PRN PRN Reason: Pain Aspirin EC Tab 81 mg PO QPM Insulin Glargine [Lantus] 15 unit SUBCUT BEDTIME Metoprolol Tartrate Tab [Lopressor Tab] 50 mg PO TID Tamsulosin [Flomax] 0.4 mg PO DAILY - Follow Up or Referral - Forms/Instructions
[2016-10-16] MEDS: DILTIAZEM 60 MG TABLET PO SCH ×4 (09:03→20:18)
[2016-10-16] MEDS: amLODIPine 5 MG TABLET PO SCH (09:04)
[2016-10-16] MEDS: ISOSORBIDE DINITRATE 10 MG TABLET PO SCH ×2 (09:04→20:20)
[2016-10-16] MEDS: METOPROLOL TARTRATE 50 MG TABLET PO SCH ×3 (09:04→20:20)
--- NOTE | 2016-10-16 10:48 | Nephrology Progress Note ---
Nephrology - PN: Subj Interval history: No labs. Sister concerned about scrotal edema. Little to no response from lasix 80mg IVP x 3 doses so far since yesterday. FOB to clear atelectasis this am. EGD for heme + stool planned for this afternoon. Exam (PN)-Nephrology - Vital Signs Vital signs: Period Temp Pulse Resp BP Sys/Crespo Pulse Ox Last 24 Hr 97.5 F-98.5 F 58-80 4-22 97-144/33-88 90-100 - General Appearance General appearance: obese, chronically ill, sedated on ventilator, intubated EENT: ATNC, PERRL, mucous membranes moist Neck: no JVD, no thyromegaly Respiratory: no kyphosis, clear Cardiology: no murmurs, no rub Gastrointestinal: normoactive bowel sounds, no tenderness Integumentary: no rash, warm and dry Neurologic: obtunded Musculoskeletal: no deformities, no erythema - Lab 10/14/16 10:49 10/15/16 Unknown Most recent lab results ABG pH 7.382 (7.35-7.45) 10/15/16 03:35 ABG pCO2 38.8 MM HG (35-48) 10/15/16 03:35 ABG pO2 78.2 MM HG (80-95) L 10/15/16 03:35 ABG HCO3 22.8 MMOL/L (20-26) 10/15/16 03:35 ABG O2 Saturation 95.6 % (95-100) 10/15/16 03:35 Calcium 8.1 MG/DL (8.5-10.1) L D 10/15/16 Unknown Phosphorus 7.4 MG/DL (2.5-4.9) H 10/13/16 04:15 Magnesium 3.2 MG/DL (1.8-2.4) H 10/09/16 04:05 Assessment and Plan (1) Hyponatremia Problem details: no labs Status: Acute Assessment and plan: FeUrea 31% c/w prerenal azotemia. Stop lasix start maintenance IVFs. Current Visit: Yes (2) CKD stage 4 due to type 2 diabetes mellitus Problem details: No indication for renal replacement therapy. Pt is not a good chronic dialysis candidate due to comorbidities. Status: Chronic Assessment and plan: Poor prognosis. Continue conservative/expectant care. Start maintenance IVFs @ 75cc/hr. Renal function labs in am with CBC. Current Visit: No (3) Dementia Status: Chronic Current Visit: No (4) Anemia Status: Chronic Assessment and plan: Iron studies c/w anemia of chronic disease. Adequate stores for erythropoiesis. Continue Epogen TIW. Heme pos stools. GI on case. Current Visit: No Qualifiers: Anemia type: due to chronic kidney disease Chronic kidney disease stage: stage 4 (severe) Qualified Code(s): N18.4 - Chronic kidney disease, stage 4 ( severe); D63.1 - Anemia in chronic kidney disease (5) Sequela of cerebrovascular accident Status: Chronic Current Visit: Yes
--- NOTE | 2016-10-16 11:14 | Hospitalist Progress Note ---
Assessment and Plan (1) Pneumonia Status: Acute Assessment and plan: ESBL E.coli in bronch washing. on Merrem. CXR with evidence of congestive heart failure Lasix started by nephrology. Bronchoscopy for retained secretions and mucous plugging with left lung atelectasis. Current Visit: No Qualifiers: Pneumonia type: aspiration pneumonia Aspiration pneumonia type: due to gastric secretions Laterality: unspecified laterality Lung location: unspecified part of lung Qualified Code(s): J69.0 - Pneumonitis due to inhalation of food and vomit (2) Anemia Status: Chronic Assessment and plan: Patient receives Epogen 3 times per week, related to his chronic anemia secondary to chronic kidney disease. Occult blood is positive suggesting GI blood losses. This is an acute on chronic process that is multifactorial related to his chronic kidney disease and acute GI blood loss. GI consult reviewed and discussed with ANNAMARIE Marquis Follow-up EGD Current Visit: No Qualifiers: Anemia type: due to chronic kidney disease Chronic kidney disease stage: stage 4 (severe) Qualified Code(s): N18.4 - Chronic kidney disease, stage 4 ( severe); D63.1 - Anemia in chronic kidney disease (3) Bedbound patient Status: Chronic Current Visit: No (4) Hypertension Status: Chronic Current Visit: No Qualifiers: Hypertension type: essential hypertension Qualified Code(s): I10 - Essential (primary) hypertension (5) Diabetes mellitus Status: Chronic Current Visit: No Qualifiers: Diabetes mellitus type: type 2 Diabetes mellitus complication detail: with other kidney complication Diabetes mellitus data entry manager insulin use: with data entry manager use (6) Acute on chronic renal failure Status: Acute Current Visit: No Qualifiers: Chronic kidney disease stage: stage 4 (severe) (7) CKD stage 4 due to type 2 diabetes mellitus Problem details: No indication for renal replacement therapy. Pt is not a good chronic dialysis candidate due to comorbidities. Status: Chronic Current Visit: No (8) Iron deficiency anemia Problem details: Adequate iron saturations for erythropoiesis after replacement. Status: Chronic Current Visit: No (9) Patient is Jain Status: Chronic Current Visit: Yes (10) Congestive heart failure Status: Acute Assessment and plan: preserved EF of 60%. Has diastolic syfxn- grade 2 by echo from August 2016 Normal left ventricular size, with mild eccentric hypertrophy, more prominent on the septum. There is no outflow tract obstruction. Normal systolic function, estimated left ventricular ejection fraction 60%. Grade 2 diastolic dysfunction. Mild mitral valve sclerosis. Mild mitral valve regurgitation. Aortic valve sclerosis, without stenosis, with mild insufficiency. Mild pulmonary hypertension. Mild pulmonic valve insufficiency. Current Visit: Yes Qualifiers: Congestive heart failure type: diastolic Congestive heart failure chronicity: acute on chronic Qualified Code(s): I50.33 - Acute on chronic diastolic (congestive) heart failure (11) GI bleed Status: Acute Assessment and plan: Consult Dr. Leo. Plan for EGD tomorrow. Current Visit: Yes (12) Hyponatremia Problem details: no labs Status: Acute Assessment and plan: I agree with Lasix. I have stopped his free water flushes with his tube feeds. Current Visit: Yes Hospitalist: Subjective Interval history: Patient seen and examined. No acute events overnight. Case discussed with nursing staff. Labs reviewed. Bronchoscopy performed this morning for whiteout of the left lung secondary to mucous plugging and atelectasis. EGD pending Exam - Constitutional Vitals: Period Temp Pulse Resp BP Sys/Crespo Pulse Ox Last 24 Hr 97.5 F-98.5 F 58-80 4-22 97-144/33-88 90-100 Exam: Constitutional System: No distress. No tremulousness. Pale and ill-appearing. Not receiving sedation and minimally responsive. Head: Normocephalic, atraumatic. Ears, Nose and Throat System: No pain or tenderness. No epistaxis or discharge. ET tube in place Eyes System: Pupils equal, round, and reactive. Extraocular muscles intact. Neck: Supple, without adenopathy, No jugular venous distention. Respiratory System: Chest clear to auscultation. Cardiovascular System: Heart with regular rate and rhythm. No murmur. GI System: Abdomen soft, nontender. Normo active bowel sounds present. Musculoskeletal System: limbs with edema. Full distal pulses. Multiple amputations involving numerous toes. Skin ulcerations and abrasions noted on bilateral feet-these were present on admission. Neurological System: Intubated minimally responsive Psychiatric System: Unobtainable secondary to patient's condition Results - Labs CBC & BMP: 10/14/16 10:49 10/15/16 Unknown Lab Results: I have reviewed the past 24 hour labs
[2016-10-16] MEDS: POTASSIUM CHLORIDE INJ 10 MEQ in SODIUM CHLORIDE 0.45% 1,000 ML IV SCH (11:52)
[2016-10-16] MEDS: PROPOFOL 1,000 MG/100 ML BOTTLE IV SCH (13:01)
--- NOTE | 2016-10-16 14:02 | History and Physical Update ---
History and Physical Update - History and Physical H&P was reviewed, the patient examined and there: are no changes in the patients condition since last H&P was completed. - Physical Exam Mental Status: other (Sedated on ventilator) Heart: regular rate and rhythm Lung: clear to auscultation Abdomen: within normal limits Vitals: within normal limits
--- NOTE | 2016-10-16 14:07 | Operative Note ---
Date of procedure: 10/16/16 Pre-op diagnosis: Recent GI bleed with anemia Procedure: Procedure: Esophagogastroduodenoscopy with BiCAP coagulation of duodenal vascular malformations, biopsy of duodenal ulcers Brief clinical abstract: 61-year-old male [employer] with respiratory failure on ventilator has had recent GI bleeding with dark stools and documented occult blood in stool. His hemoglobin is down to 4. Indication for procedure: GI bleed with melena Endoscopic findings:[After informed consent was obtained, the patient was placed in the left lateral decubitus position. The gastroscope was inserted in the upper esophagus under direct vision with no resistance encountered. Esophageal mucosa appeared normal with squamocolumnar junction sharply demarcated above a small hiatal hernia. The endoscope was advanced in the stomach which was carefully examined including retroflexed view of the cardia and fundus with no abnormality seen. The pyloric channel and duodenal bulb were normal. In the second and third portion of the duodenum there were multiple small ulcers 3-5 mm in diameter. A couple of these had de la paz-red spots overlying them and appear to be vascular malformations. I coagulated both of these with BiCAP probe on a setting of 15 W. No significant blood was noted from these and they appeared to be ablated endoscopically. Given the location of the ulcers, I obtained several biopsies of these for pathologic examination. The endoscope was removed and patient appeared to tolerate the procedure well. 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 Recommendations: Twice daily PPI therapy. Follow-up pathology. Anesthesia: MAC Surgeon / Physician: Cayetano Leo Estimated blood loss: minimal Specimens: none sent Condition: stable Disposition: no change Results - Labs CBC & BMP: 10/14/16 10:49 10/15/16 Unknown Discharge Plan - Discharge Medications No Action Sertraline [Zoloft] 25 mg PO DAILY Pregabalin [Lyrica] 225 mg PO BID Metoprolol Tartrate 50 mg PO TID Methocarbamol 500 mg PO BID PRN PRN Reason: Pain Tamsulosin [Flomax] 0.4 mg PO DAILY Finasteride 5 mg PO DAILY cloNIDine TAB [Catapres Tab] 0.1 mg PO Q4H Aspirin EC Tab 81 mg PO QPM Valsartan 80 mg PO QID Pantoprazole Tab [Protonix Tab] 40 mg PO DAILY Simvastatin 20 mg PO BEDTIME Albuterol/Ipratropium Neb [Duoneb] 3 ml RESP TX RT Q4H #120 vial Folic Acid Tab 0.4 mg PO BID #60 tablet Albuterol/Ipratropium Neb [Duoneb] 3 ml RESP TX RT Q4H cloNIDine TAB [Catapres Tab] 0.1 mg PO Q4H Cyanocobalamin Tab [Vitamin B12 Tab] 500 mcg PO BID Ferrous Sulfate Tab [Feosol Original Tab] 325 mg PO BID Finasteride [Proscar] 5 mg PO DAILY Folic Acid Tab 0.4 mg PO BID Isosorbide Mononitrate [Imdur] 30 mg PO DAILY Methocarbamol Tab [Robaxin Tab] 500 mg PO BID PRN PRN Reason: Pain Pantoprazole Tab [Protonix Tab] 40 mg PO DAILY Pregabalin [Lyrica] 225 mg PO BID Sertraline [Zoloft] 25 mg PO DAILY Simvastatin 20 mg PO QPM Valsartan 80 mg PO QID Isosorbide Mononitrate [Imdur] 30 mg PO DAILY Ferrous Sulfate 325 mg PO BID Acetaminophen Tab [Tylenol Tab] 325 mg PO Q4H PRN tablet PRN Reason: fever, headache/body aches Cyanocobalamin Tab [Vitamin B12 Tab] 500 mcg PO BID #60 tablet Insulin Glargine [Lantus] 15 unit SUBCUT BEDTIME #1 packet Acetaminophen Tab [Tylenol Tab] 325 mg PO Q4H PRN PRN Reason: Pain Aspirin EC Tab 81 mg PO QPM Insulin Glargine [Lantus] 15 unit SUBCUT BEDTIME Metoprolol Tartrate Tab [Lopressor Tab] 50 mg PO TID Tamsulosin [Flomax] 0.4 mg PO DAILY - Follow Up or Referral - Forms/Instructions
[2016-10-16] MEDS: INSULIN GLARGINE 100 UNIT/ML SUBCUT SCH (20:20)
[2016-10-17] MEDS: INSULIN REGULAR 100 UNIT/ML SUBCUT SCH ×5 (00:29→23:52)
[2016-10-17] MEDS: POTASSIUM CHLORIDE INJ 10 MEQ in SODIUM CHLORIDE 0.45% 1,000 ML IV SCH ×2 (00:30→15:48)
--- NOTE | 2016-10-17 07:03 | XRay Report ---
XR chest 1V portable Indication: Shortness of breath Comparison: 16 October 2016 Findings: The heart and mediastinum are stable in size and configuration. Lines and tubes are unchanged in position. The pulmonary vascularity is increased but similar to previous. There is improved aeration of the left lung with some residual left lower lung density. No other lung infiltrates, effusions, pneumothorax or other abnormality is demonstrated. Impression: Improved aeration of the left lung when compared to previous exam. No other interval changes. PROCEDURE INTERPRETED AT [facility] DEPARTMENT OF RADIOLOGY Final Report Signed by: Dr. Calixto Cedeno
[2016-10-17] MEDS: ALBUTEROL 2.5 MG/3 ML NEB RESP TX SCH ×3 (07:15→18:51)
--- NOTE | 2016-10-17 08:12 | Pulmonology Progress Note ---
Pulmonary - PN: Subj Interval history: Patient is a 61-year-old white man that is very debilitated. 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 He has chronic renal failure with anemia chronic disease and does not want blood because the family is [facility]. He now has congestive heart failure and possible pneumonia. He developed worsening respiratory distress and basically had an arrest. Now he is on the ventilator again. The patient has been having positive stool for blood. He does have some right lower lobe pneumonia with ESBL E. coli growing out of bronchial washings. The patient looks comfortable on IMV. The patient looks better today and is breathing comfortably. His FiO2 is down to 40%. He had a therapeutic bronchoscopy yesterday and his left lung is opened up nicely. He had an EGD and had some areas cauterized. He is more awake this morning and seems to be comfortable on the ventilator. Exam (Progress Note) - Constitutional Vitals: Period Temp Pulse Resp BP Sys/Crespo Pulse Ox Last 24 Hr 97.7 F-98.0 F 66-77 12-22 116-144/39-88 90-100 Exam: General appearance: the patient is more awake and looking around and looks comfortable. - Head Head exam: Present: normal inspection, normocephalic - Eye Eye exam: Present: EOMI. Absent: scleral icterus Pupils: Present: JOVANY - ENT ENT exam: Present: The ET tube is in good position. - Neck Neck exam: Present: normal inspection. Absent: lymphadenopathy, thyromegaly - Respiratory Respiratory exam: Present: He has good breath sounds bilaterally now and his left lung sounds better. - Cardiovascular Cardiovascular exam: Present: regular rate and rhythm, systolic murmur (He does have a soft murmur). Absent: gallop - GI/Abdominal GI/Abdominal exam: Present: hypoactive bowel sounds, soft. Absent: organomegaly , tenderness - Extremities Exam Extremities exam: Present: other (Multiple toe amputations). Absent: calf tenderness, edema - Neurological Exam Neurological exam: Present: He is grimacing and responding a little. He does not move much. - Psychiatric Psychiatric exam: Absent: anxious - Skin Skin exam: Present: warm, pallor Results - Labs CBC & BMP: 10/14/16 10:49 10/15/16 Unknown - Diagnostic Findings Procedure: Chest x-ray: image reviewed by me, report reviewed by me (Chest x- ray does show bilateral infiltrates but the left lung is open now.) Assessment and Plan (1) History of multiple strokes Status: Chronic Assessment and plan: The patient has had multiple strokes and is bedridden. He is extremely debilitated. He does have extremely poor pulmonary toilet. He arouses okay but cannot do much. He should probably have a tracheostomy tube but with his severe anemia, I doubt anyone will do this. Current Visit: No (2) Dementia Status: Chronic Assessment and plan: Patient now is status post arrest and his prognosis is poor. He is extremely debilitated. Current Visit: No (3) Diabetes mellitus Status: Chronic Assessment and plan: His glucoses will be monitored. His glucose is 194 this morning. Current Visit: No Qualifiers: Diabetes mellitus type: type 2 Diabetes mellitus complication detail: with other kidney complication Diabetes mellitus retirement insulin use: with retirement use (4) Leg ulcer Status: Acute Assessment and plan: The patient has had bilateral leg ulcers. He has been followed by wound care. Current Visit: No (5) CKD stage 4 due to type 2 diabetes mellitus Problem details: No indication for renal replacement therapy. Pt is not a good chronic dialysis candidate due to comorbidities. Status: Chronic Assessment and plan: The patient has chronic renal failure and his creatinine is 4.5 . His urine output has been on the low side. He had 295 cc out yesterday. Current Visit: No (6) Chronic respiratory failure Status: Acute Assessment and plan: The patient likely has aspiration pneumonia and chronic respiratory problems. He has very poor pulmonary toilet. He also has a component of heart failure. He is now status post arrest is back on the ventilator. He does have multiorgan system failure. His oxygenation is better today and his x-ray is better. We will continue weaning trials. His overall prognosis is poor Current Visit: Yes (7) Anemia, chronic disease Status: Acute Assessment and plan: The patient has chronic anemia and now his hemoglobin was 4.3 yesterday. He had an EGD yesterday and had some areas cauterized. Current Visit: Yes (8) Congestive heart failure Status: Acute Assessment and plan: Patient has a tendency for heart failure but seems to be stable at present. Current Visit: Yes Qualifiers: Congestive heart failure type: diastolic Congestive heart failure chronicity: acute on chronic Qualified Code(s): I50.33 - Acute on chronic diastolic (congestive) heart failure
--- NOTE | 2016-10-17 09:04 | Nephrology Progress Note ---
Nephrology - PN: Subj Interval history: Pt unresponsive. Intubated, sedated, mechanically ventilated. UOP increased with maintenance IVFs overnight at 75cc/hr. No increased FiO2 requirement. No labs. Exam (PN)-Nephrology - Vital Signs Vital signs: Period Temp Pulse Resp BP Sys/Crespo Pulse Ox Last 24 Hr 97.7 F-98.0 F 66-77 12-18 116-142/39-67 92-100 - General Appearance General appearance: severe distress, sedated on ventilator, intubated EENT: ATNC, PERRL, mucous membranes moist Neck: no JVD, no thyromegaly Respiratory: no kyphosis, clear Cardiology: no murmurs, no rub, edema Gastrointestinal: normoactive bowel sounds, no tenderness Integumentary: no rash, warm and dry Neurologic: obtunded Musculoskeletal: no deformities, no erythema - Lab 10/14/16 10:49 10/15/16 Unknown Most recent lab results ABG pH 7.382 (7.35-7.45) 10/15/16 03:35 ABG pCO2 38.8 MM HG (35-48) 10/15/16 03:35 ABG pO2 78.2 MM HG (80-95) L 10/15/16 03:35 ABG HCO3 22.8 MMOL/L (20-26) 10/15/16 03:35 ABG O2 Saturation 95.6 % (95-100) 10/15/16 03:35 Calcium 8.1 MG/DL (8.5-10.1) L D 10/15/16 Unknown Phosphorus 7.4 MG/DL (2.5-4.9) H 10/13/16 04:15 Magnesium 3.2 MG/DL (1.8-2.4) H 10/09/16 04:05 Assessment and Plan (1) Hyponatremia Problem details: no labs Status: Acute Assessment and plan: FeUrea 31% c/w prerenal azotemia. Stop lasix start maintenance IVFs. Check renal panel and CBC in am. Current Visit: Yes (2) CKD stage 4 due to type 2 diabetes mellitus Problem details: No indication for renal replacement therapy. Pt is not a good chronic dialysis candidate due to comorbidities. Status: Chronic Assessment and plan: Poor prognosis. Continue conservative/expectant care. Continue maintenance IVFs @ 75cc/hr. Renal function labs in am with CBC. Current Visit: No (3) Dementia Status: Chronic Current Visit: No (4) Anemia Problem details: Multiple ulcerations found on EGD. PPI increased to BID. Bx pathology pending. Status: Chronic Assessment and plan: CBC in am. Current Visit: No Qualifiers: Anemia type: due to chronic kidney disease Chronic kidney disease stage: stage 4 (severe) Qualified Code(s): N18.4 - Chronic kidney disease, stage 4 ( severe); D63.1 - Anemia in chronic kidney disease (5) Sequela of cerebrovascular accident Status: Chronic Current Visit: Yes
--- NOTE | 2016-10-17 09:10 | Gastrointestinal Progress Note ---
Assessment and Plan (1) Anemia Problem details: Multiple ulcerations found on EGD. PPI increased to BID. Bx pathology pending. Status: Chronic Assessment and plan: 10/17-no reports of overt bleeding. EGD findings on yesterday noted. Continue to monitor at this time. Plan an addendum to follow by Dr. Leo. 10/15-no changes at present time. No overt bleeding reported. Discussed with Dr. Leo and at this time will plan to proceed with EGD tomorrow to further evaluate source of anemia and heme positive stools. Father plan an addendum to followed by Dr. Leo peer Current Visit: No Qualifiers: Anemia type: due to chronic kidney disease Chronic kidney disease stage: stage 4 (severe) Qualified Code(s): N18.4 - Chronic kidney disease, stage 4 ( severe); D63.1 - Anemia in chronic kidney disease Gastroenterology - PN: Subj Interval history: CC: Anemia, GI bleed Patient is seen, sedated on ventilator, unresponsive. EGD on yesterday revealed duodenal vascular malformations with endoscopic coagulation as well as multiple post bulbar duodenal ulcerations. Pathology report is pending on this at present time. Abdomen soft, nontender. No labs repeated at this time. ROS: No acute distress at present time. Exam (Progress Note) - Constitutional Vitals: Period Temp Pulse Resp BP Sys/Crespo Pulse Ox Last 24 Hr 97.7 F-98.0 F 66-77 12-18 117-142/39-67 92-100 General appearance: no acute distress, over weight - Head Head exam: Present: normal inspection, normocephalic - Eye Eye exam: Present: other (Lids and conjunctive are unremarkable). Absent: scleral icterus - ENT ENT exam: Present: normal exam, normal oropharynx - Neck Neck exam: Present: normal inspection - Respiratory Respiratory exam: Present: clear to auscultation bilaterally. Absent: rales, rhonchi, wheezes - Cardiovascular Cardiovascular exam: Present: regular rate and rhythm. Absent: diastolic murmur , JVD, systolic murmur - GI/Abdominal GI/Abdominal exam: Present: normal bowel sounds, soft. Absent: ascites, distended, mass, organomegaly, tenderness - Extremities Exam Extremities exam: Present: normal inspection - Back Exam Back exam: Present: normal inspection - Neurological Exam Neurological exam: Present: altered - Psychiatric Psychiatric exam: Present: other - Skin Skin exam: Present: warm, dry, pallor Results - Labs CBC & BMP: 10/14/16 10:49 10/15/16 Unknown Lab Results: I have reviewed the past 24 hour labs
[2016-10-17] MEDS: BACITRACIN OINT 0.9 GM PACK TOP SCH (09:23)
[2016-10-17] MEDS: TAMSULOSIN 0.4 MG CAPSULE PO SCH (09:23)
[2016-10-17] MEDS: FERROUS SULFATE 300 MG/5 ML UDCUP NG SCH ×2 (09:23→20:42)
[2016-10-17] MEDS: amLODIPine 5 MG TABLET PO SCH (09:24)
[2016-10-17] MEDS: METOPROLOL TARTRATE 50 MG TABLET PO SCH ×3 (09:24→20:45)
[2016-10-17] MEDS: LANSOPRAZOLE ODT 30 MG TABLET PO SCH ×2 (09:24→20:43)
[2016-10-17] MEDS: ISOSORBIDE DINITRATE 10 MG TABLET PO SCH ×2 (09:24→20:44)
[2016-10-17] MEDS: CYANOCOBALAMIN 500 MCG TABLET PO SCH (09:24)
[2016-10-17] MEDS: SERTRALINE 25 MG TABLET PO SCH (09:24)
[2016-10-17] MEDS: AMIODARONE 200 MG TABLET PO SCH (09:25)
[2016-10-17] MEDS: DILTIAZEM 60 MG TABLET PO SCH ×4 (09:25→20:44)
[2016-10-17] MEDS: FINASTERIDE 5 MG TABLET PO SCH (09:26)
[2016-10-17] MEDS: cloNIDine 0.2 MG/24 HR PATCH TRANSDERM SCH (09:26)
[2016-10-17] MEDS: FOLIC ACID 0.4 MG TABLET PO SCH ×2 (09:26→20:42)
[2016-10-17] MEDS: EPOETIN ALFA 10,000 UNIT/1 ML VIAL SUBCUT SCH (09:26)
--- NOTE | 2016-10-17 09:33 | Hospitalist Progress Note ---
Assessment and Plan (1) History of multiple strokes Status: Chronic Assessment and plan: Profound cortical atrophy associated with severe residual ischemic neurologic deficits. Current Visit: No (2) Diabetes mellitus Status: Chronic Current Visit: No Qualifiers: Diabetes mellitus type: type 2 Diabetes mellitus complication detail: with other kidney complication Diabetes mellitus ad terminal makeup operator insulin use: with ad terminal makeup operator use (3) CKD stage 4 due to type 2 diabetes mellitus Problem details: No indication for renal replacement therapy. Pt is not a good chronic dialysis candidate due to comorbidities. Status: Chronic Assessment and plan: Probable chronic simple anemia with superimposed blood loss. Blood transfusion declined by patient. Patient was unable to maintain himself on home Epogen regimen following his August hospitalization. Current Visit: No (4) Pneumonia Status: Acute Assessment and plan: Recurrent mucoid with bronchial washing positive for extended spectrum beta- lactamase E. coli. Current Visit: No Qualifiers: Pneumonia type: aspiration pneumonia Aspiration pneumonia type: due to gastric secretions Laterality: unspecified laterality Lung location: unspecified part of lung Qualified Code(s): J69.0 - Pneumonitis due to inhalation of food and vomit Hospitalist: Subjective Interval history: 61-year-old male with chronic multi-infarct dementia, PEG tube with chronic renal insufficiency who has developed volume overload in the setting of a relatively normal echocardiographic appearance. He has declined blood transfusions with a critical anemia which has progressed over the hospital stay. He has had an upper endoscopy performed with local cauterization and has had bronchoscopy performed for retained secretions and lung collapse. He continues mechanically ventilated with stable vital signs. He is in sinus rhythm. He formerly was followed in [place] but recently has had monthly admission here for respiratory complaints possibly reflective of recurrent oropharngeal aspiration. He had been seen in August by hematology who recommended Epogen administration. This was performed in hospital but apparently could not be completed as an outpatient he is continued to show a stable but very low hemoglobin level compared to discharge in August (note he was prerenal at this admission initially and with rehydration has approached the discharge value present in August) Exam - Constitutional Vitals: Period Temp Pulse Resp BP Sys/Crespo Pulse Ox Last 24 Hr 97.7 F-98.0 F 66-77 12-18 117-142/39-67 92-100 General appearance: over weight - Respiratory Respiratory exam: Absent: rales, rhonchi, wheezes - Cardiovascular Cardiovascular exam: Present: regular rate and rhythm, systolic murmur (Aortic sclerosis/mitral annular calcification.) - GI/Abdominal GI/Abdominal exam: Present: normal bowel sounds, other (PEG tube in place). Absent: distended - Extremities Exam Extremities exam: Present: edema (Diffuse interstitial edema.) - Neurological Exam Neurological exam: Absent: alert Results - Labs CBC & BMP: 10/14/16 10:49 10/15/16 Unknown - Diagnostic Findings Procedure: Chest x-ray: image reviewed by me (Lower lobe atelectasis with multifocal nodularity within the left lung.)
[2016-10-17] MEDS: DESITIN 4OZ/NYSTATIN 15 GRAM MIXTURE PASTE TOP SCH ×2 (09:39→20:43)
[2016-10-17] MEDS: CYANOCOBALAMIN 1000 MCG/1 ML VIAL IM SCH (11:59)
--- NOTE | 2016-10-17 12:27 | Pathology Report from [facility] ---
[facility] ACCESSION # : [id number] PATIENT NAME : Beau Kim ORDERING DR : LASHAWN VELOZ MD CLINICAL HX: Anemia POST-OP DX: Same SPECIMEN INFO: Small bowel biopsy GROSS DESCRIPTION: The specimen is received in formalin labeled with the patients name and consists of two tissue fragments collectively measuring 0.5 x 0.4 cm. Submitted in one cassette. DIAGNOSIS FOR BEAU KIM: SMALL BOWEL BIOPSY: Benign small bowel mucosa with normal villous architecture and mild chronic inflammation. No evidence of sprue. COLLECTED DATE: 10/16/2016 [facility] REPORT DATE: 10/17/2016 ELECTRONICALLY SIGNED BY: Ángel Reddy III, M.D. 10/17/2016 - 10:39:37 [facility]ENTERId[facility]
[2016-10-17] MEDS: INSULIN GLARGINE 100 UNIT/ML SUBCUT SCH (20:42)
[2016-10-17] MEDS: PROPOFOL 1,000 MG/100 ML BOTTLE IV SCH (22:31)
[2016-10-18] MEDS: ALBUTEROL 2.5 MG/3 ML NEB RESP TX SCH ×4 (00:16→19:05)
[2016-10-18 03:54] LABS: Allen Test Positive; Pt O2 Delivery Device Ventilator
[2016-10-18 03:55] LABS: ABG Base Excess -4.9 MMOL/L (-2.5-2.5); ABG HCO3 20.3 MMOL/L (20-26); ABG Oxygen Saturation 96.7 % (95-100); ABG PCO2 33.2 MM HG (35-48); ABG PH 7.384 (7.35-7.45); ABG PO2 81.9 MM HG (80-95); ABG TCO2 19.5 MMOL/L (23-27)
[2016-10-18 04:42] LABS: Eosinophils # 2.2 10*3/uL (0.0-0.87); Eosinophils % 18.9 % (0.00-10.9); Immature Granulocytes Absolute 0.82 #; Lymphocytes # 0.7 10*3/uL (1.4-4.0); Lymphocytes % 5.6 % (21.2-54.2); Mean Corpuscular HGB Conc 30.7 GM/DL (32-36); Mean Corpuscular Hemoglobin 30 PG (27-34); Mean Corpuscular Volume 97.7 FL (87-102); Mean Platelet Volume 13.3 FL (9.6-12.0); Monocytes # 0.7 10*3/uL (0.11-0.8); Monocytes % 5.8 % (1.7-12.7); NRBC # 0.07 10*3/uL; Neutrophils # 7.3 10*3/uL (1.4-7.4); Neutrophils % 62.7 % (38.7-73.9); Platelet Count 228 T/CUMM (130-400); Red Cell Distribution Width 22.9 % (9.3-17.3); White Blood Count 11.7 T/CUMM (4-12)
[2016-10-18 05:06] LABS: Hemoglobin 3.9 GM/DL (14.0-18.0)
[2016-10-18 05:07] LABS: Hematocrit 12.7 VOL% (42.0-52.0)
[2016-10-18 05:27] LABS: Albumin 1.8 G/DL (3.4-5.0); Calcium 8.1 MG/DL (8.5-10.1); Osmolality,Calculated 308.4 MOS/KG (273-304); Phosphorous 9.7 MG/DL (2.5-4.9); Potassium 4.1 MMOL/L (3.5-5.1)
[2016-10-18 05:45] LABS: Band Neutrophils 2 % (0-10); Eosinophils 19 % (0-10); Hypochromasia 2+; Lymphocytes 8 % (20-55); Microcytosis 3+; Platelet Estimate Normal; Polychromasia 2+; Segmented Neutrophils 65 % (50-85); Total Cells Counted 100
[2016-10-18] MEDS: INSULIN REGULAR 100 UNIT/ML SUBCUT SCH ×3 (06:08→17:56)
[2016-10-18] MEDS: POTASSIUM CHLORIDE INJ 10 MEQ in SODIUM CHLORIDE 0.45% 1,000 ML IV SCH ×2 (06:08→10:15)
--- NOTE | 2016-10-18 07:19 | Pulmonology Progress Note ---
Pulmonary - PN: Subj Interval history: Patient is a 61-year-old white man that is very debilitated. 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 He has chronic renal failure with anemia chronic disease and does not want blood because the family is Jainism. He now has congestive heart failure and possible pneumonia. He developed worsening respiratory distress and basically had an arrest. Now he is on the ventilator again. The patient has been having positive stool for blood. He does have some right lower lobe pneumonia with ESBL E. coli growing out of bronchial washings. The patient looks comfortable on IMV. The patient has become less responsive through the night. He is not able to do much CPAP. His hemoglobin is down to 3.9. His outlook is very poor without blood. His chest x-ray still shows mild bibasilar changes. Exam (Progress Note) - Constitutional Vitals: Period Temp Pulse Resp BP Sys/Crespo Pulse Ox Last 24 Hr 96.9 F-98.4 F 64-78 12-21 116-141/42-74 80-100 Exam: General appearance: the patient is not really responding very well but is comfortable on the ventilator. - Head Head exam: Present: normal inspection, normocephalic - Eye Eye exam: Present: EOMI. Absent: scleral icterus Pupils: Present: JOVANY - ENT ENT exam: Present: The ET tube is in good position. - Neck Neck exam: Present: normal inspection. Absent: lymphadenopathy, thyromegaly - Respiratory Respiratory exam: Present: He has good breath sounds bilaterally now and his left lung sounds better. He still has some rhonchi in the bases. - Cardiovascular Cardiovascular exam: Present: regular rate and rhythm, systolic murmur (He does have a soft murmur). Absent: gallop - GI/Abdominal GI/Abdominal exam: Present: hypoactive bowel sounds, soft. Absent: organomegaly , tenderness - Extremities Exam Extremities exam: Present: other (Multiple toe amputations). Absent: calf tenderness, edema - Neurological Exam Neurological exam: Present: He is less responsive this morning. - Psychiatric Psychiatric exam: Absent: anxious - Skin Skin exam: Present: warm, pallor Results - Labs CBC & BMP: 10/18/16 04:30 10/18/16 04:30 Labs: PO2 is 81 with a PCO2 of 33 and a pH of 7.38 - Diagnostic Findings Procedure: Chest x-ray: image reviewed by me, report reviewed by me (Chest x- ray shows bibasilar changes.) Assessment and Plan (1) History of multiple strokes Status: Chronic Assessment and plan: The patient has had multiple strokes and is bedridden. He is not as responsive this morning Current Visit: No (2) Dementia Status: Chronic Assessment and plan: Patient now is status post arrest and his prognosis is poor. He is extremely debilitated. Current Visit: No (3) Diabetes mellitus Status: Chronic Assessment and plan: His glucoses will be monitored. His glucose is 155 this morning. Current Visit: No Qualifiers: Diabetes mellitus type: type 2 Diabetes mellitus complication detail: with other kidney complication Diabetes mellitus mcc insulin use: with termite control servicer use (4) Leg ulcer Status: Acute Assessment and plan: The patient has had bilateral leg ulcers. He has been followed by wound care. Current Visit: No (5) CKD stage 4 due to type 2 diabetes mellitus Problem details: No indication for renal replacement therapy. Pt is not a good chronic dialysis candidate due to comorbidities. Status: Chronic Assessment and plan: The patient has chronic renal failure and his creatinine is 4.8 . His urine output has still been on the low side. Current Visit: No (6) Chronic respiratory failure Status: Acute Assessment and plan: The patient likely has aspiration pneumonia and chronic respiratory problems. He has very poor pulmonary toilet. He also has a component of heart failure. He is now status post arrest is back on the ventilator. He does have multiorgan system failure. He has not been doing CPAP quite as well lately. He is so anemic that his outlook is very poor. Current Visit: Yes (7) Anemia, chronic disease Status: Acute Assessment and plan: The patient has chronic anemia and now his hemoglobin was 3.9 yesterday. He continues to do poorly with his severe anemia. Current Visit: Yes (8) Congestive heart failure Status: Acute Assessment and plan: Patient has a tendency for heart failure but seems to be stable at present. Current Visit: Yes Qualifiers: Congestive heart failure type: diastolic Congestive heart failure chronicity: acute on chronic Qualified Code(s): I50.33 - Acute on chronic diastolic (congestive) heart failure
--- NOTE | 2016-10-18 08:00 | Hospitalist Progress Note ---
Assessment and Plan - Time spent with patient Time spent with patient: Less than 30 minutes (1) Chronic respiratory failure Status: Acute Assessment and plan: Patient has acute on chronic respiratory failure likely secondary to recurrent aspiration. Continuing ventilatory support. Pulmonary is following along with us and assisting. Current Visit: Yes (2) Anemia Problem details: Multiple ulcerations found on EGD. PPI increased to BID. Bx pathology pending. Status: Chronic Assessment and plan: Patient has severe anemia and declines transfusion secondary to mormonism preferences. This is likely component of chronic disease as well as possible upper GI bleeding is noted to EGD. Will continue to follow and provide current care. Current Visit: No Qualifiers: Anemia type: due to chronic kidney disease Chronic kidney disease stage: stage 4 (severe) Qualified Code(s): N18.4 - Chronic kidney disease, stage 4 ( severe); D63.1 - Anemia in chronic kidney disease (3) Hypertension Status: Chronic Assessment and plan: Blood pressures well controlled. Continue current regimen. Current Visit: No Qualifiers: Hypertension type: essential hypertension Qualified Code(s): I10 - Essential (primary) hypertension (4) Diabetes mellitus Status: Chronic Assessment and plan: Blood sugars fairly well controlled. Continue his current medical regimen. Current Visit: No Qualifiers: Diabetes mellitus type: type 2 Diabetes mellitus complication detail: with other kidney complication Diabetes mellitus intermediate insulin use: with terminal operator use (5) Leg ulcer Status: Acute Assessment and plan: Patient has lower extremity ulcerations and is being followed by wound care. Current Visit: No (6) CKD stage 4 due to type 2 diabetes mellitus Problem details: No indication for renal replacement therapy. Pt is not a good chronic dialysis candidate due to comorbidities. Status: Chronic Assessment and plan: Patient has chronic kidney disease and creatinine is 4.8 today. He is not felt to be a good candidate for chronic hemodialysis because of his multiple comorbidities. Nephrology is following. Current Visit: No (7) Dementia Status: Chronic Current Visit: No (8) History of multiple strokes Status: Chronic Current Visit: No Hospitalist: Subjective Interval history: Chart reviewed and patient examined. This is a 61-year-old white male very debilitated with multi-infarct dementia, PEG tube placement, chronic kidney disease who developed some volume overload. He is also noted to be severely anemic however his decline blood transfusions due to mormonism preference. He did have upper endoscopy with local cauterization of some vascular malformations and also noted multiple post bulbar duodenal ulcers with negative pathology. He continues to be ventilated and does open his eyes but otherwise has no response. Exam - Constitutional Vitals: Period Temp Pulse Resp BP Sys/Crespo Pulse Ox Last 24 Hr 96.9 F-98.4 F 64-78 12-21 116-141/42-74 80-100 General appearance: no acute distress - Head Head exam: Present: normocephalic, atraumatic - Eye Eye exam: Present: EOMI Pupils: Present: JOVANY - ENT ENT exam: Present: normal oropharynx, other (ET tube in place) - Neck Neck exam: Present: normal inspection - Respiratory Respiratory exam: Present: rhonchi (Scattered rhonchi) - Cardiovascular Cardiovascular exam: Present: regular rate and rhythm, systolic murmur - GI/Abdominal GI/Abdominal exam: Present: normal bowel sounds, soft, other (PEG tube in place) . Absent: tenderness, rebound - Extremities Exam Extremities exam: Present: edema (Diffuse edema) - Neurological Exam Neurological exam: Present: other (He will open his eyes spontaneously but does not obey simple commands nor withdraw all extremities) - Skin Skin exam: Present: warm, dry. Absent: rash Results - Labs CBC & BMP: 10/18/16 04:30 10/18/16 04:30 Lab Results: I have reviewed the past 24 hour labs - Diagnostic Findings Procedure: Chest x-ray: image reviewed by me
[2016-10-18] MEDS: FERROUS SULFATE 300 MG/5 ML UDCUP NG SCH ×2 (09:07→21:38)
[2016-10-18] MEDS: SERTRALINE 25 MG TABLET PO SCH (09:08)
[2016-10-18] MEDS: FOLIC ACID 0.4 MG TABLET PO SCH ×2 (09:08→21:39)
[2016-10-18] MEDS: DILTIAZEM 60 MG TABLET PO SCH ×4 (09:08→21:40)
[2016-10-18] MEDS: TAMSULOSIN 0.4 MG CAPSULE PO SCH (09:08)
[2016-10-18] MEDS: BACITRACIN OINT 0.9 GM PACK TOP SCH ×2 (09:08→11:41)
[2016-10-18] MEDS: METOPROLOL TARTRATE 50 MG TABLET PO SCH ×3 (09:08→21:40)
[2016-10-18] MEDS: FINASTERIDE 5 MG TABLET PO SCH (09:09)
[2016-10-18] MEDS: amLODIPine 5 MG TABLET PO SCH (09:09)
[2016-10-18] MEDS: LANSOPRAZOLE ODT 30 MG TABLET PO SCH ×2 (09:09→21:39)
[2016-10-18] MEDS: AMIODARONE 200 MG TABLET PO SCH (09:09)
[2016-10-18] MEDS: ISOSORBIDE DINITRATE 10 MG TABLET PO SCH ×2 (09:09→21:40)
[2016-10-18] MEDS: CYANOCOBALAMIN 1000 MCG/1 ML VIAL IM SCH (09:10)
--- NOTE | 2016-10-18 10:10 | XRay Report ---
Portable chest Date: 10/18/2016 Clinical history: Shortness of breath Comparison: 10/17/2016 Technique: Portable AP sitting chest Findings: Stable cardiomegaly and supportive devices. Progressive parenchymal findings with larger pleural effusions. Stable mediastinum and osseous structures. Impression: Supportive devices remain in satisfactory position. Progressive pulmonary edema/bilateral pneumonia with enlarging moderate right and [id number] left pleural effusions. PROCEDURE INTERPRETED AT [facility] DEPARTMENT OF RADIOLOGY Final Report Signed by: Dr. Danielle Dyer
--- NOTE | 2016-10-18 11:15 | Nephrology Progress Note ---
Nephrology - PN: Subj Interval history: He remains on the ventilator. Blood pressure stable. Exam (PN)-Nephrology - Vital Signs Vital signs: Period Temp Pulse Resp BP Sys/Crespo Pulse Ox Last 24 Hr 96.9 F-98.1 F 64-80 12-21 116-142/42-75 80-100 Exam: Gen.: Sedated on ventilator ENT: Pupils equal round reactive to light. Neck: Supple. No JVD or bruit. Cardiovascular: Regular rate and rhythm. No murmur rub or gallop Lungs: Clear Abdomen: Soft. Nontender. Positive bowel sounds. No organomegaly Extremities: 2+ edema - Lab 10/18/16 04:30 10/18/16 04:30 Most recent lab results ABG pH 7.384 (7.35-7.45) 10/18/16 03:45 ABG pCO2 33.2 MM HG (35-48) L 10/18/16 03:45 ABG pO2 81.9 MM HG (80-95) 10/18/16 03:45 ABG HCO3 20.3 MMOL/L (20-26) 10/18/16 03:45 ABG O2 Saturation 96.7 % (95-100) 10/18/16 03:45 Calcium 8.1 MG/DL (8.5-10.1) L 10/18/16 04:30 Phosphorus 9.7 MG/DL (2.5-4.9) H 10/18/16 04:30 Magnesium 3.2 MG/DL (1.8-2.4) H 10/09/16 04:05 Assessment and Plan (1) CKD stage 4 due to type 2 diabetes mellitus Status: Chronic Assessment and plan: 61-year-old man with: * CRF 4. Creatinine slightly higher. Urine output better last p.m. * Hyponatremia. IV fluid changed to normal saline * Ventilatory failure * Anemia * Diabetes mellitus * Cerebrovascular disease Current Visit: No (2) Acute respiratory failure Status: Acute Current Visit: No (3) Anemia Problem details: Multiple ulcerations found on EGD. PPI increased to BID. Bx pathology pending. Status: Chronic Current Visit: No Qualifiers: Anemia type: due to chronic kidney disease Chronic kidney disease stage: stage 4 (severe) Qualified Code(s): N18.4 - Chronic kidney disease, stage 4 ( severe); D63.1 - Anemia in chronic kidney disease (4) Diabetes mellitus Status: Chronic Current Visit: No Qualifiers: Diabetes mellitus type: type 2 Diabetes mellitus complication detail: with other kidney complication Diabetes mellitus half-way insulin use: with exterminator use (5) Hypertension Status: Chronic Current Visit: No Qualifiers: Hypertension type: essential hypertension Qualified Code(s): I10 - Essential (primary) hypertension
[2016-10-18] MEDS: SODIUM CHLORIDE 0.9% 1,000 ML IV SCH (11:40)
[2016-10-18] MEDS: DESITIN 4OZ/NYSTATIN 15 GRAM MIXTURE PASTE TOP SCH ×2 (11:41→21:40)
[2016-10-18] MEDS: INSULIN GLARGINE 100 UNIT/ML SUBCUT SCH (21:39)
[2016-10-19] MEDS: ALBUTEROL 2.5 MG/3 ML NEB RESP TX SCH ×4 (00:15→19:48)
[2016-10-19] MEDS: INSULIN REGULAR 100 UNIT/ML SUBCUT SCH ×4 (00:29→18:34)
[2016-10-19 02:24] LABS: ABG HCO3 19.3 MMOL/L (20-26); ABG Oxygen Saturation 97.3 % (95-100); ABG PCO2 33.7 MM HG (35-48); ABG PH 7.358 (7.35-7.45); ABG PO2 87.3 MM HG (80-95); ABG TCO2 18.6 MMOL/L (23-27); Allen Test Positive; Pt O2 Delivery Device Ventilator
--- NOTE | 2016-10-19 07:05 | Pulmonology Progress Note ---
Pulmonary - PN: Subj Interval history: Patient is a 61-year-old white man that is very debilitated. 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 He has chronic renal failure with anemia chronic disease and does not want blood because the family is Yarsanism. He now has congestive heart failure and possible pneumonia. He developed worsening respiratory distress and basically had an arrest. Now he is on the ventilator again. The patient has been having positive stool for blood. He does have some right lower lobe pneumonia with ESBL E. coli growing out of bronchial washings. The patient looks comfortable on IMV. The patient has been relatively stable on the ventilator. He will respond a little but is mainly sedated. His urine output was almost 600 cc the last 24 hours. The patient has done poorly on any CPAP attempts. He is extremely anemic. Exam (Progress Note) - Constitutional Vitals: Period Temp Pulse Resp BP Sys/Crespo Pulse Ox Last 24 Hr 96.5 F-98.3 F 63-80 10-19 114-142/41-75 81-100 Exam: General appearance: the patient will grimace but does not do much activity. He is still comfortable on the ventilator. - Head Head exam: Present: normal inspection, normocephalic - Eye Eye exam: Present: EOMI. Absent: scleral icterus Pupils: Present: JOVANY - ENT ENT exam: Present: The ET tube is in good position. - Neck Neck exam: Present: normal inspection. Absent: lymphadenopathy, thyromegaly - Respiratory Respiratory exam: Present: He has good breath sounds bilaterally now and is moving air fairly well with some mild rhonchi bilaterally. - Cardiovascular Cardiovascular exam: Present: regular rate and rhythm, systolic murmur (He does have a soft murmur). Absent: gallop - GI/Abdominal GI/Abdominal exam: Present: hypoactive bowel sounds, soft. Absent: organomegaly , tenderness - Extremities Exam Extremities exam: Present: other (Multiple toe amputations). Absent: calf tenderness, edema - Neurological Exam Neurological exam: Present: He is grimacing some but less responsive. - Psychiatric Psychiatric exam: Absent: anxious - Skin Skin exam: Present: warm, pallor Results - Labs CBC & BMP: 10/18/16 04:30 10/18/16 04:30 Labs: His PO2 is 87 with a PCO2 of 33 and a pH of 7.35 - Diagnostic Findings Procedure: Chest x-ray: image reviewed by me, report reviewed by me (Chest x- ray still shows bilateral infiltrates.) Assessment and Plan (1) History of multiple strokes Status: Chronic Assessment and plan: The patient has had multiple strokes and is bedridden. He is not as responsive this morning. He is extremely debilitated. Current Visit: No (2) Dementia Status: Chronic Assessment and plan: Patient now is status post arrest and his prognosis is poor. He is extremely debilitated. Current Visit: No (3) Diabetes mellitus Status: Chronic Assessment and plan: His glucoses will be monitored. His glucose is 151 this morning. Current Visit: No Qualifiers: Diabetes mellitus type: type 2 Diabetes mellitus complication detail: with other kidney complication Diabetes mellitus care home insulin use: with terminologist use (4) Leg ulcer Status: Acute Assessment and plan: The patient has had bilateral leg ulcers. He has been followed by wound care. Current Visit: No (5) CKD stage 4 due to type 2 diabetes mellitus Problem details: No indication for renal replacement therapy. Pt is not a good chronic dialysis candidate due to comorbidities. Status: Chronic Assessment and plan: The patient has chronic renal failure and his creatinine is 4.8 . His urine output has been fair for the last 24 hours. Current Visit: No (6) Chronic respiratory failure Status: Acute Assessment and plan: The patient likely has aspiration pneumonia and chronic respiratory problems. He has very poor pulmonary toilet. He also has a component of heart failure. He is now status post arrest is back on the ventilator. He does have multiorgan system failure. He still has extensive bilateral infiltrates. He is doing CPAP poorly. His overall outlook is very poor. Current Visit: Yes (7) Anemia, chronic disease Status: Acute Assessment and plan: The patient has chronic anemia and now his hemoglobin was 3.9 yesterday. He continues to do poorly with his severe anemia. Current Visit: Yes (8) Congestive heart failure Status: Acute Assessment and plan: Patient has a tendency for heart failure but seems to be stable at present. Current Visit: Yes Qualifiers: Congestive heart failure type: diastolic Congestive heart failure chronicity: acute on chronic Qualified Code(s): I50.33 - Acute on chronic diastolic (congestive) heart failure
[2016-10-19] MEDS: SODIUM CHLORIDE 0.9% 1,000 ML IV SCH (07:22)
--- NOTE | 2016-10-19 08:49 | Hospitalist Progress Note ---
Assessment and Plan - Time spent with patient Time spent with patient: Less than 30 minutes (1) Chronic respiratory failure Status: Acute Assessment and plan: Patient has acute on chronic respiratory failure likely secondary to recurrent aspiration. Continuing ventilatory support. Pulmonary is following along with us and assisting. 10/19/16: Continuing ventilatory support as well as antibiotic therapy for possible aspiration pneumonia. He did grow out ESBL E. coli from his bronchial washings. Pulmonary is following. Current Visit: Yes (2) Anemia Problem details: Multiple ulcerations found on EGD. PPI increased to BID. Bx pathology pending. Status: Chronic Assessment and plan: symptom: Patient has severe anemia and declines transfusion secondary to worship preferences. This is likely component of chronic disease as well as possible upper GI bleeding is noted to EGD. Will continue to follow and provide current care. Repeat H&H in the a.m. Current Visit: No Qualifiers: Anemia type: due to chronic kidney disease Chronic kidney disease stage: stage 4 (severe) Qualified Code(s): N18.4 - Chronic kidney disease, stage 4 ( severe); D63.1 - Anemia in chronic kidney disease (3) Hypertension Status: Chronic Assessment and plan: Blood pressures well controlled. Continue current regimen. Current Visit: No Qualifiers: Hypertension type: essential hypertension Qualified Code(s): I10 - Essential (primary) hypertension (4) Diabetes mellitus Status: Chronic Assessment and plan: Blood sugars fairly well controlled. Continue his current medical regimen. Current Visit: No Qualifiers: Diabetes mellitus type: type 2 Diabetes mellitus complication detail: with other kidney complication Diabetes mellitus chcf insulin use: with terminal worker use (5) Leg ulcer Status: Acute Assessment and plan: Patient has lower extremity ulcerations and is being followed by wound care. Current Visit: No (6) CKD stage 4 due to type 2 diabetes mellitus Problem details: No indication for renal replacement therapy. Pt is not a good chronic dialysis candidate due to comorbidities. Status: Chronic Assessment and plan: Patient has chronic kidney disease and creatinine is 4.8 today. He is not felt to be a good candidate for chronic hemodialysis because of his multiple comorbidities. Nephrology is following. Current Visit: No (7) Dementia Status: Chronic Current Visit: No (8) History of multiple strokes Status: Chronic Current Visit: No Hospitalist: Subjective Interval history: Mr. Kim continues to be ventilated. He is minimally responsive and opens his eyes but does not obey simple commands. Exam - Constitutional Vitals: Period Temp Pulse Resp BP Sys/Crespo Pulse Ox Last 24 Hr 96.5 F-98.3 F 63-80 10-14 114-142/41-59 91-100 General appearance: no acute distress - Head Head exam: Present: normocephalic, atraumatic - Eye Eye exam: Present: EOMI Pupils: Present: JOVAYN - ENT ENT exam: Present: other (ET tube in place) - Respiratory Respiratory exam: Present: rhonchi - Cardiovascular Cardiovascular exam: Present: regular rate and rhythm, systolic murmur - GI/Abdominal GI/Abdominal exam: Present: normal bowel sounds, soft, other (PEG tube in place) . Absent: mass, tenderness, rebound - Extremities Exam Extremities exam: Absent: calf tenderness, edema - Neurological Exam Neurological exam: Present: other (Sedated on the ventilator he will open his eyes spontaneously but does not obey simple commands nor withdraw all extremities) - Skin Skin exam: Present: warm, dry. Absent: erythema Results - Labs CBC & BMP: 10/18/16 04:30 10/18/16 04:30 Lab Results: I have reviewed the past 24 hour labs
[2016-10-19] MEDS: FERROUS SULFATE 300 MG/5 ML UDCUP NG SCH ×2 (09:16→21:11)
[2016-10-19] MEDS: DILTIAZEM 60 MG TABLET PO SCH ×4 (09:16→21:03)
[2016-10-19] MEDS: AMIODARONE 200 MG TABLET PO SCH (09:17)
[2016-10-19] MEDS: FINASTERIDE 5 MG TABLET PO SCH (09:17)
[2016-10-19] MEDS: ISOSORBIDE DINITRATE 10 MG TABLET PO SCH ×2 (09:17→21:04)
[2016-10-19] MEDS: FOLIC ACID 0.4 MG TABLET PO SCH ×2 (09:17→21:12)
[2016-10-19] MEDS: METOPROLOL TARTRATE 50 MG TABLET PO SCH ×3 (09:18→21:04)
[2016-10-19] MEDS: TAMSULOSIN 0.4 MG CAPSULE PO SCH (09:18)
[2016-10-19] MEDS: amLODIPine 5 MG TABLET PO SCH (09:18)
[2016-10-19] MEDS: SERTRALINE 25 MG TABLET PO SCH (09:18)
[2016-10-19] MEDS: CYANOCOBALAMIN 1000 MCG/1 ML VIAL IM SCH (09:18)
[2016-10-19] MEDS: LANSOPRAZOLE ODT 30 MG TABLET PO SCH ×2 (09:19→21:11)
--- NOTE | 2016-10-19 09:27 | XRay Report ---
Portable chest Date: 10/19/2016 Clinical history: Shortness of breath Comparison: 10/18/2016 Technique: Portable AP sitting chest Findings: Stable cardiomegaly and supportive devices. Persistent diffuse parenchymal findings with small to moderate right and small left pleural effusions. Stable mediastinum and osseous structures. Impression: No significant change in the appearance on the chest when compared to the previous exam. PROCEDURE INTERPRETED AT [facility] DEPARTMENT OF RADIOLOGY Final Report Signed by: Dr. Danielle Dyer
[2016-10-19] MEDS: BACITRACIN OINT 0.9 GM PACK TOP SCH (10:35)
[2016-10-19] MEDS: DESITIN 4OZ/NYSTATIN 15 GRAM MIXTURE PASTE TOP SCH ×2 (10:35→21:12)
--- NOTE | 2016-10-19 13:25 | Nephrology Progress Note ---
Nephrology - PN: Subj Interval history: He remains on the ventilator. Blood pressure is stable Exam (PN)-Nephrology - Vital Signs Vital signs: Period Temp Pulse Resp BP Sys/Crespo Pulse Ox Last 24 Hr 96.5 F-98.3 F 62-81 10-14 114-146/41-55 91-100 Exam: Gen.: Sedated on ventilator ENT: Pupils equal round reactive to light. Neck: Supple. No JVD or bruit. Cardiovascular: Regular rate and rhythm. No murmur rub or gallop Lungs: Clear Abdomen: Soft. Nontender. Positive bowel sounds. No organomegaly Extremities: 2+ edema - Lab 10/18/16 04:30 10/18/16 04:30 Most recent lab results ABG pH 7.358 (7.35-7.45) 10/19/16 02:10 ABG pCO2 33.7 MM HG (35-48) L 10/19/16 02:10 ABG pO2 87.3 MM HG (80-95) 10/19/16 02:10 ABG HCO3 19.3 MMOL/L (20-26) L 10/19/16 02:10 ABG O2 Saturation 97.3 % (95-100) 10/19/16 02:10 Calcium 8.1 MG/DL (8.5-10.1) L 10/18/16 04:30 Phosphorus 9.7 MG/DL (2.5-4.9) H 10/18/16 04:30 Magnesium 3.2 MG/DL (1.8-2.4) H 10/09/16 04:05 Assessment and Plan (1) CKD stage 4 due to type 2 diabetes mellitus Status: Chronic Assessment and plan: 61-year-old man with: * CRF 4. No lab today * Hyponatremia. IV fluid changed to normal saline * Ventilatory failure * Anemia * Diabetes mellitus * Cerebrovascular disease Current Visit: No (2) Acute respiratory failure Status: Acute Current Visit: No (3) Anemia Problem details: Multiple ulcerations found on EGD. PPI increased to BID. Bx pathology pending. Status: Chronic Current Visit: No Qualifiers: Anemia type: due to chronic kidney disease Chronic kidney disease stage: stage 4 (severe) Qualified Code(s): N18.4 - Chronic kidney disease, stage 4 ( severe); D63.1 - Anemia in chronic kidney disease (4) Diabetes mellitus Status: Chronic Current Visit: No Qualifiers: Diabetes mellitus type: type 2 Diabetes mellitus complication detail: with other kidney complication Diabetes mellitus long-term insulin use: with long term care phlebotomist use (5) Hypertension Status: Chronic Current Visit: No Qualifiers: Hypertension type: essential hypertension Qualified Code(s): I10 - Essential (primary) hypertension
[2016-10-19] MEDS: INSULIN GLARGINE 100 UNIT/ML SUBCUT SCH (21:12)
[2016-10-20] MEDS: INSULIN REGULAR 100 UNIT/ML SUBCUT SCH ×4 (00:06→17:41)
[2016-10-20] MEDS: ALBUTEROL 2.5 MG/3 ML NEB RESP TX SCH ×4 (03:50→20:03)
[2016-10-20] MEDS: SODIUM CHLORIDE 0.9% 1,000 ML IV SCH (04:26)
[2016-10-20 04:49] LABS: Hemoglobin 4.3 GM/DL (14.0-18.0)
[2016-10-20 08:10] LABS: Calcium 8.8 MG/DL (8.5-10.1); Magnesium 3.6 MG/DL (1.8-2.4); Osmolality,Calculated 312.9 MOS/KG (273-304)
[2016-10-20 08:12] LABS: Phosphorous 9.6 MG/DL (2.5-4.9)
--- NOTE | 2016-10-20 08:18 | Pulmonology Progress Note ---
Pulmonary - PN: Subj Interval history: Patient is a 61-year-old white man that is very debilitated. 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 He has chronic renal failure with anemia chronic disease and does not want blood because the family is [place]. He now has congestive heart failure and possible pneumonia. He developed worsening respiratory distress and basically had an arrest. Now he is on the ventilator again. The patient has been having positive stool for blood. He does have some right lower lobe pneumonia with ESBL E. coli growing out of bronchial washings. The patient looks comfortable on IMV. The patient has been relatively stable on the ventilator. He still does not respond well now. He is not able to do CPAP very well at all. His renal function is no better and his urine output is low. His hemoglobin is 4.3. Overall his outlook is very poor Exam (Progress Note) - Constitutional Vitals: Period Temp Pulse Resp BP Sys/Crespo Pulse Ox Last 24 Hr 97.3 F-98.7 F 62-81 11-15 118-154/40-64 91-100 Exam: General appearance: the patient will grimace but does not do much activity. He is still comfortable on the ventilator. - Head Head exam: Present: normal inspection, normocephalic - Eye Eye exam: Present: EOMI. Absent: scleral icterus Pupils: Present: JOVANY - ENT ENT exam: Present: The ET tube is in good position. - Neck Neck exam: Present: normal inspection. Absent: lymphadenopathy, thyromegaly - Respiratory Respiratory exam: Present: He has good breath sounds bilaterally now but he does have coarse breath sounds with bilateral crackles. - Cardiovascular Cardiovascular exam: Present: regular rate and rhythm, systolic murmur (He does have a soft murmur). Absent: gallop - GI/Abdominal GI/Abdominal exam: Present: hypoactive bowel sounds, soft. Absent: organomegaly , tenderness - Extremities Exam Extremities exam: Present: other (Multiple toe amputations). Absent: calf tenderness, edema - Neurological Exam Neurological exam: Present: He is grimacing some but less responsive. - Psychiatric Psychiatric exam: Absent: anxious - Skin Skin exam: Present: warm, pallor Results - Labs CBC & BMP: 10/20/16 04:25 10/20/16 04:25 Assessment and Plan (1) History of multiple strokes Status: Chronic Assessment and plan: The patient has had multiple strokes and is bedridden. He is not as responsive this morning. He is extremely debilitated. Current Visit: No (2) Dementia Status: Chronic Assessment and plan: Patient now is status post arrest and his prognosis is poor. He is not as alert and responsive as he once was. Current Visit: No (3) Diabetes mellitus Status: Chronic Assessment and plan: His glucoses will be monitored. His glucose is 160 this morning. Current Visit: No Qualifiers: Diabetes mellitus type: type 2 Diabetes mellitus complication detail: with other kidney complication Diabetes mellitus custodial insulin use: with custodial use (4) Leg ulcer Status: Acute Assessment and plan: The patient has had bilateral leg ulcers. He has been followed by wound care. Current Visit: No (5) CKD stage 4 due to type 2 diabetes mellitus Problem details: No indication for renal replacement therapy. Pt is not a good chronic dialysis candidate due to comorbidities. Status: Chronic Assessment and plan: The patient has chronic renal failure and his creatinine is 5.0 . His urine output has been on the low side. Current Visit: No (6) Chronic respiratory failure Status: Acute Assessment and plan: The patient likely has aspiration pneumonia and chronic respiratory problems. He has very poor pulmonary toilet. He also has a component of heart failure. He is now status post arrest is back on the ventilator. He does have multiorgan system failure. He still has extensive bilateral infiltrates. He is doing CPAP poorly. Ordinarily he would need a tracheostomy tube but his hematocrit is so low, no one will do surgery. Will continue attempts at CPAP. Current Visit: Yes (7) Anemia, chronic disease Status: Acute Assessment and plan: The patient has chronic anemia and now his hemoglobin was 4.3 yesterday. He continues to do poorly with his severe anemia. Current Visit: Yes (8) Congestive heart failure Status: Acute Assessment and plan: Patient has a tendency for heart failure but seems to be stable at present. Current Visit: Yes Qualifiers: Congestive heart failure type: diastolic Congestive heart failure chronicity: acute on chronic Qualified Code(s): I50.33 - Acute on chronic diastolic (congestive) heart failure
[2016-10-20] MEDS: amLODIPine 5 MG TABLET PO SCH (08:58)
[2016-10-20] MEDS: AMIODARONE 200 MG TABLET PO SCH (08:58)
[2016-10-20] MEDS: FERROUS SULFATE 300 MG/5 ML UDCUP NG SCH ×2 (08:58→20:16)
[2016-10-20] MEDS: BACITRACIN OINT 0.9 GM PACK TOP SCH (08:58)
[2016-10-20] MEDS: LANSOPRAZOLE ODT 30 MG TABLET PO SCH ×2 (08:59→20:18)
[2016-10-20] MEDS: SERTRALINE 25 MG TABLET PO SCH (08:59)
[2016-10-20] MEDS: METOPROLOL TARTRATE 50 MG TABLET PO SCH ×3 (08:59→20:17)
[2016-10-20] MEDS: FOLIC ACID 0.4 MG TABLET PO SCH ×2 (08:59→20:18)
[2016-10-20] MEDS: ISOSORBIDE DINITRATE 10 MG TABLET PO SCH ×2 (08:59→20:17)
[2016-10-20] MEDS: FINASTERIDE 5 MG TABLET PO SCH (08:59)
[2016-10-20] MEDS: DILTIAZEM 60 MG TABLET PO SCH ×4 (09:00→20:17)
[2016-10-20] MEDS: TAMSULOSIN 0.4 MG CAPSULE PO SCH (09:00)
[2016-10-20] MEDS: CYANOCOBALAMIN 1000 MCG/1 ML VIAL IM SCH (09:00)
[2016-10-20] MEDS: EPOETIN ALFA 10,000 UNIT/1 ML VIAL SUBCUT SCH (09:00)
[2016-10-20] MEDS: DESITIN 4OZ/NYSTATIN 15 GRAM MIXTURE PASTE TOP SCH ×2 (09:01→20:20)
--- NOTE | 2016-10-20 09:30 | Nephrology Progress Note ---
Nephrology - PN: Subj Interval history: Pt unresponsive. Intubated/mechanically ventilated. Creatinine 5.0. Hyponatremia improved with IVFs. Hgb 4. Exam (PN)-Nephrology - Vital Signs Vital signs: Period Temp Pulse Resp BP Sys/Crespo Pulse Ox Last 24 Hr 97.3 F-98.7 F 62-81 11-15 118-154/40-64 91-100 - General Appearance General appearance: chronically ill, sedated on ventilator, intubated EENT: ATNC, PERRL, mucous membranes dry Neck: no JVD, no thyromegaly Respiratory: no kyphosis, rales Cardiology: no murmurs, no rub Gastrointestinal: normoactive bowel sounds, no tenderness Integumentary: no rash, warm and dry Neurologic: no asterixis, obtunded Musculoskeletal: no deformities, no erythema - Lab 10/20/16 04:25 10/20/16 04:25 Most recent lab results ABG pH 7.358 (7.35-7.45) 10/19/16 02:10 ABG pCO2 33.7 MM HG (35-48) L 10/19/16 02:10 ABG pO2 87.3 MM HG (80-95) 10/19/16 02:10 ABG HCO3 19.3 MMOL/L (20-26) L 10/19/16 02:10 ABG O2 Saturation 97.3 % (95-100) 10/19/16 02:10 Calcium 8.8 MG/DL (8.5-10.1) 10/20/16 04:25 Phosphorus 9.6 MG/DL (2.5-4.9) H 10/20/16 04:25 Magnesium 3.6 MG/DL (1.8-2.4) H 10/20/16 04:25 Assessment and Plan (1) Hyponatremia Problem details: no labs today. Improved from 126 to 129 last check with IVFs. Status: Acute Assessment and plan: FeUrea 31% c/w prerenal azotemia. Stop lasix start maintenance IVFs. Check renal panel and CBC in am. Current Visit: Yes (2) CKD stage 4 due to type 2 diabetes mellitus Problem details: No indication for renal replacement therapy. Pt is not a good chronic dialysis candidate due to comorbidities. Status: Chronic Assessment and plan: Continue conservative/expectant care. Current Visit: No (3) Dementia Status: Chronic Current Visit: No (4) Anemia Problem details: Multiple ulcerations found on EGD. PPI increased to BID. Bx pathology pending. Status: Chronic Assessment and plan: CBC in am. Current Visit: No Qualifiers: Anemia type: due to chronic kidney disease Chronic kidney disease stage: stage 4 (severe) Qualified Code(s): N18.4 - Chronic kidney disease, stage 4 ( severe); D63.1 - Anemia in chronic kidney disease (5) Sequela of cerebrovascular accident Status: Chronic Current Visit: Yes
--- NOTE | 2016-10-20 09:48 | Gastrointestinal Progress Note ---
Assessment and Plan (1) Anemia Problem details: Multiple ulcerations found on EGD. PPI increased to BID. Bx pathology pending. Status: Chronic Assessment and plan: 10/18-No overt bleeding over the weekend. Hgb holds at this time at 4.3. Plan and addendum to follow by Dr Leo. 10/17-no reports of overt bleeding. EGD findings on yesterday noted. Continue to monitor at this time. Plan an addendum to follow by Dr. Leo. 10/15-no changes at present time. No overt bleeding reported. Discussed with Dr. Leo and at this time will plan to proceed with EGD tomorrow to further evaluate source of anemia and heme positive stools. Father plan an addendum to followed by Dr. Leo peer Current Visit: No Qualifiers: Anemia type: due to chronic kidney disease Chronic kidney disease stage: stage 4 (severe) Qualified Code(s): N18.4 - Chronic kidney disease, stage 4 ( severe); D63.1 - Anemia in chronic kidney disease Gastroenterology - PN: Subj Interval history: CC: Anemia, GI bleed Pt is seen, on vent. No reports of overt bleeding over the weekend. Hemoglobin is holding at 4.3. He is not responding to commands at this time. Also noted he is not tolerating CPAP very well. Abdomen is soft, nontender. Creatnine is up at 5 today. ROS: No acute distress noted Exam (Progress Note) - Constitutional Vitals: Period Temp Pulse Resp BP Sys/Crespo Pulse Ox Last 24 Hr 97.3 F-98.7 F 62-81 11-15 118-154/40-64 91-100 - Other Additional findings: General appearance: no acute distress, over weight - Head Head exam: Present: normal inspection, normocephalic - Eye Eye exam: Present: other (Lids and conjunctive are unremarkable). Absent: scleral icterus - ENT ENT exam: Present: normal exam, normal oropharynx - Neck Neck exam: Present: normal inspection - Respiratory Respiratory exam: Present: clear to auscultation bilaterally. Absent: rales, rhonchi, wheezes - Cardiovascular Cardiovascular exam: Present: regular rate and rhythm. Absent: diastolic murmur , JVD, systolic murmur - GI/Abdominal GI/Abdominal exam: Present: normal bowel sounds, soft. Absent: ascites, distended, mass, organomegaly, tenderness - Extremities Exam Extremities exam: Present: normal inspection - Back Exam Back exam: Present: normal inspection - Neurological Exam Neurological exam: Present: altered - Psychiatric Psychiatric exam: Present: other - Skin Skin exam: Present: warm, dry, pallor Results - Labs CBC & BMP: 10/20/16 04:25 10/20/16 04:25 Lab Results: I have reviewed the past 24 hour labs
--- NOTE | 2016-10-20 10:08 | Hospitalist Progress Note ---
Assessment and Plan (1) Aspiration pneumonia Status: Acute Assessment and plan: The patient is presently stable on the ventilator but not making progress toward extubation. Prognosis is poor considering the patient's multiple comorbidities. I coordinated care with Dr. Lord and with Dr. Graham. Current Visit: Yes Qualifiers: Aspiration pneumonia type: due to gastric secretions Lung location: unspecified part of lung (2) History of multiple strokes Status: Chronic Current Visit: No (3) Acute on chronic renal failure Status: Acute Current Visit: No Qualifiers: Chronic kidney disease stage: stage 4 (severe) (4) Patient is [place] Status: Chronic Current Visit: Yes (5) Chronic respiratory failure Status: Acute Current Visit: Yes Hospitalist: Subjective Interval history: Mr. Kim is a 61-year-old [place] who had cardiac arrest and was resuscitated to the ventilator. The patient appears to have acute on chronic aspiration and has developed aspiration pneumonia as well. The patient continues to have declining renal function but is not a candidate for dialysis at this time. The patient has had anemia and some GI blood loss. Exam - Constitutional Vitals: Period Temp Pulse Resp BP Sys/Crespo Pulse Ox Last 24 Hr 97.3 F-98.7 F 62-81 11-15 118-154/40-64 91-100 Exam: Constitutional System: No distress. No tremulousness. The patient is resting on the ventilator but not tolerating spontaneous ventilation trials. Head: Normocephalic, atraumatic. Ears, Nose and Throat System: No evidence of Otitis or Mastoiditis. No epistaxis or discharge Eyes System: Pupils equal, round, and reactive. Extraocular muscles intact. Neck: Supple, without adenopathy, No jugular venous distention. No thyromegaly , neck mass, or prior surgery apparent. Respiratory System: Chest moderate right-sided rhonchi to auscultation. Cardiovascular System: Heart with regular rate and rhythm. No murmur. GI System: Abdomen soft, nontender. Normo active bowel sounds present. Musculoskeletal System: limbs with no pedal edema. Full distal pulses. Neurological System: No discernable sensory deficit. No aphasia Psychiatric System: Conversation is rational Results - Labs CBC & BMP: 10/20/16 04:25 10/20/16 04:25 Lab Results: I have reviewed the past 24 hour labs
[2016-10-20] MEDS: INSULIN GLARGINE 100 UNIT/ML SUBCUT SCH (20:19)
[2016-10-21] MEDS: ALBUTEROL 2.5 MG/3 ML NEB RESP TX SCH ×4 (00:29→19:21)
[2016-10-21] MEDS: SODIUM CHLORIDE 0.9% 1,000 ML IV SCH ×2 (00:39→19:54)
[2016-10-21] MEDS: INSULIN REGULAR 100 UNIT/ML SUBCUT SCH ×5 (00:40→23:33)
[2016-10-21 03:47] LABS: Basophils % 0.1 % (0.0-0.8); Eosinophils # 1.1 10*3/uL (0.0-0.87); Eosinophils % 9.3 % (0.00-10.9); Immature Granulocytes % 2.1 %; Immature Granulocytes Absolute 0.26 #; Lymphocytes # 0.5 10*3/uL (1.4-4.0); Mean Corpuscular HGB Conc 30.4 GM/DL (32-36); Mean Corpuscular Hemoglobin 30 PG (27-34); Mean Corpuscular Volume 97.9 FL (87-102); Monocytes # 0.6 10*3/uL (0.11-0.8); Monocytes % 4.6 % (1.7-12.7); NRBC # 0.02 10*3/uL; Neutrophils # 9.7 10*3/uL (1.4-7.4); Neutrophils % 79.9 % (38.7-73.9); Platelet Count 224 T/CUMM (130-400); Red Blood Count 1.41 MC/CUMM (3.8-5.5); Red Cell Distribution Width 22.4 % (9.3-17.3); White Blood Count 12.1 T/CUMM (4-12)
[2016-10-21 03:48] LABS: Hemoglobin 4.2 GM/DL (14.0-18.0)
[2016-10-21 03:49] LABS: Hematocrit 13.8 VOL% (42.0-52.0)
[2016-10-21 04:06] LABS: ABG Base Excess -6.3 MMOL/L (-2.5-2.5); ABG HCO3 18.6 MMOL/L (20-26); ABG Oxygen Saturation 98.4 % (95-100); ABG PCO2 33.1 MM HG (35-48); ABG PH 7.367 (7.35-7.45); ABG PO2 127.2 MM HG (80-95); ABG TCO2 19.6 MMOL/L (23-27); Allen Test Positive; Pt O2 Delivery Device Ventilator
[2016-10-21 04:25] LABS: Band Neutrophils 2 % (0-10); Eosinophils 5 % (0-10); Lymphocytes 5 % (20-55); Nucleated Red Blood Cells 2 (0-5); Segmented Neutrophils 88 % (50-85); Total Cells Counted 100
[2016-10-21 04:27] LABS: Anisocytosis 1+; Hypochromasia 2+; Schistocytes Few
[2016-10-21 04:28] LABS: Macrocytosis 1+; Platelet Estimate Normal
[2016-10-21 04:38] LABS: Calcium 9.1 MG/DL (8.5-10.1); Magnesium 3.7 MG/DL (1.8-2.4); Osmolality,Calculated 311.9 MOS/KG (273-304)
--- NOTE | 2016-10-21 06:56 | XRay Report ---
Exam: XR chest 1V portable Date: 10/21/2016 4:00 AM Indication: Follow-up ventilator respiratory failure Comparison: 10/19/2016 Technical: AP Findings: Right IJ catheter is present. Endotracheal tube is at the level of mid clavicle. External cardiac leads are present. Cardiomegaly is present. Low volume effusions and alveolar edema present bilaterally. ASVD present. No pneumothorax. Old left lower rib fracture suspected Impression: 1. Stable appearance of life support tubing 2. Persistent low-volume effusions and alveolar edema similar to prior exam. PROCEDURE INTERPRETED AT [facility] DEPARTMENT OF RADIOLOGY Final Report Signed by: Dr. Cayetano Hayden
--- NOTE | 2016-10-21 07:42 | Pulmonology Progress Note ---
Pulmonary - PN: Subj Interval history: Patient is a 61-year-old white man that is very debilitated. 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 He has chronic renal failure with anemia chronic disease and does not want blood because the family is Jewish. He now has congestive heart failure and possible pneumonia. He developed worsening respiratory distress and basically had an arrest. Now he is on the ventilator again. The patient has been having positive stool for blood. He does have some right lower lobe pneumonia with ESBL E. coli growing out of bronchial washings. The patient looks comfortable on IMV. The patient has been reasonably stable on the ventilator. He cannot do CPAP however. He has not been showing any respiratory effort at all. He will grimace but does not respond that well now. His chest x-ray still shows bilateral infiltrates. His creatinine is 4.9 and his hemoglobin is 4.2. Exam (Progress Note) - Constitutional Vitals: Period Temp Pulse Resp BP Sys/Crespo Pulse Ox Last 24 Hr 97.6 F-98.9 F 61-80 12-21 115-167/47-62 90-100 Exam: General appearance: the patient will grimace but does not do much activity. He is still comfortable on the ventilator. - Head Head exam: Present: normal inspection, normocephalic - Eye Eye exam: Present: EOMI. Absent: scleral icterus Pupils: Present: JOVANY - ENT ENT exam: Present: The ET tube is in good position. - Neck Neck exam: Present: normal inspection. Absent: lymphadenopathy, thyromegaly - Respiratory Respiratory exam: Present: He has good breath sounds bilaterally now but he does have coarse breath sounds with bilateral crackles. He does not have any wheezing. - Cardiovascular Cardiovascular exam: Present: regular rate and rhythm, systolic murmur (He does have a soft murmur). Absent: gallop - GI/Abdominal GI/Abdominal exam: Present: hypoactive bowel sounds, soft. Absent: organomegaly , tenderness - Extremities Exam Extremities exam: Present: other (Multiple toe amputations). Absent: calf tenderness, edema - Neurological Exam Neurological exam: Present: He is grimacing some but less responsive. - Psychiatric Psychiatric exam: Absent: anxious - Skin Skin exam: Present: warm, pallor Results - Labs CBC & BMP: 10/21/16 03:40 10/21/16 03:40 Labs: His PO2 is 127 with a PCO2 of 33 and a pH of 7.36 - Diagnostic Findings Procedure: Chest x-ray: image reviewed by me, report reviewed by me (Chest x- ray still shows bilateral infiltrates worse on the right.) Assessment and Plan (1) History of multiple strokes Status: Chronic Assessment and plan: The patient has had multiple strokes and is bedridden. He is not as responsive this morning. He is extremely debilitated. Current Visit: No (2) Dementia Status: Chronic Assessment and plan: Patient now is status post arrest and his prognosis is poor. He has no change in his mental status. Current Visit: No (3) Diabetes mellitus Status: Chronic Assessment and plan: His glucoses will be monitored. His glucose is 164 this morning. Current Visit: No Qualifiers: Diabetes mellitus type: type 2 Diabetes mellitus complication detail: with other kidney complication Diabetes mellitus watermaster insulin use: with watermaster use (4) Leg ulcer Status: Acute Assessment and plan: The patient has had bilateral leg ulcers. He has been followed by wound care. Current Visit: No (5) CKD stage 4 due to type 2 diabetes mellitus Problem details: No indication for renal replacement therapy. Pt is not a good chronic dialysis candidate due to comorbidities. Status: Chronic Assessment and plan: The patient has chronic renal failure and his creatinine is 4.9 . His urine output has been a little better over 24 hours. Current Visit: No (6) Chronic respiratory failure Status: Acute Assessment and plan: The patient likely has aspiration pneumonia and chronic respiratory problems. He has very poor pulmonary toilet. He also has a component of heart failure. He is now status post arrest is back on the ventilator. He does have multiorgan system failure. He still has extensive bilateral infiltrates. He is doing CPAP poorly. Ordinarily he would need a tracheostomy tube but his hematocrit is so low, no one will do surgery. His oxygenation is still reasonably stable. He does have multiorgan system dysfunction. Current Visit: Yes (7) Anemia, chronic disease Status: Acute Assessment and plan: The patient has chronic anemia and his hemoglobin is still 4.2. Current Visit: Yes (8) Congestive heart failure Status: Acute Assessment and plan: Patient has a tendency for heart failure but seems to be stable at present. He still has bilateral infiltrates and some of this is fluid. Current Visit: Yes Qualifiers: Congestive heart failure type: diastolic Congestive heart failure chronicity: acute on chronic Qualified Code(s): I50.33 - Acute on chronic diastolic (congestive) heart failure
--- NOTE | 2016-10-21 08:30 | Nephrology Progress Note ---
Nephrology - PN: Subj Interval history: No acute overnight events. Unresponsive. Intubated, sedated, mechanically ventilated. Creatinine stable. eGFR 14cc/min. Exam (PN)-Nephrology - Vital Signs Vital signs: Period Temp Pulse Resp BP Sys/Crespo Pulse Ox Last 24 Hr 97.6 F-98.9 F 61-80 12-21 115-167/47-62 90-100 - General Appearance General appearance: well-developed, chronically ill, sedated on ventilator, intubated EENT: ATNC, PERRL Neck: no JVD, no thyromegaly Respiratory: no kyphosis, rales Cardiology: no murmurs, no rub Gastrointestinal: normoactive bowel sounds, no tenderness Integumentary: no rash, warm and dry Neurologic: obtunded Musculoskeletal: no deformities, no erythema - Lab 10/21/16 03:40 10/21/16 03:40 Most recent lab results ABG pH 7.367 (7.35-7.45) 10/21/16 03:58 ABG pCO2 33.1 MM HG (35-48) L 10/21/16 03:58 ABG pO2 127.2 MM HG (80-95) H 10/21/16 03:58 ABG HCO3 18.6 MMOL/L (20-26) L 10/21/16 03:58 ABG O2 Saturation 98.4 % (95-100) 10/21/16 03:58 Calcium 9.1 MG/DL (8.5-10.1) 10/21/16 03:40 Phosphorus 9.6 MG/DL (2.5-4.9) H 10/20/16 04:25 Magnesium 3.7 MG/DL (1.8-2.4) H 10/21/16 03:40 Assessment and Plan (1) CKD stage 4 due to type 2 diabetes mellitus Problem details: No indication for renal replacement therapy. Pt is not a good chronic dialysis candidate due to comorbidities. Status: Chronic Assessment and plan: Continue conservative/expectant care. Current Visit: No (2) Hyponatremia Problem details: Improved from 126 to 129. Status: Acute Current Visit: Yes (3) Dementia Status: Chronic Current Visit: No (4) Anemia Problem details: Multiple ulcerations found on EGD. PPI increased to BID. Bx pathology pending. Status: Chronic Current Visit: No Qualifiers: Anemia type: due to chronic kidney disease Chronic kidney disease stage: stage 4 (severe) Qualified Code(s): N18.4 - Chronic kidney disease, stage 4 ( severe); D63.1 - Anemia in chronic kidney disease (5) Sequela of cerebrovascular accident Status: Chronic Current Visit: Yes
[2016-10-21] MEDS: CYANOCOBALAMIN 1000 MCG/1 ML VIAL IM SCH (08:36)
[2016-10-21] MEDS: SERTRALINE 25 MG TABLET PO SCH (08:36)
[2016-10-21] MEDS: LANSOPRAZOLE ODT 30 MG TABLET PO SCH ×2 (08:36→21:24)
[2016-10-21] MEDS: BACITRACIN OINT 0.9 GM PACK TOP SCH (08:36)
[2016-10-21] MEDS: ISOSORBIDE DINITRATE 10 MG TABLET PO SCH ×2 (08:36→21:22)
[2016-10-21] MEDS: DILTIAZEM 60 MG TABLET PO SCH ×4 (08:36→21:23)
[2016-10-21] MEDS: FOLIC ACID 0.4 MG TABLET PO SCH ×2 (08:36→21:23)
[2016-10-21] MEDS: FERROUS SULFATE 300 MG/5 ML UDCUP NG SCH ×2 (08:36→21:18)
[2016-10-21] MEDS: FINASTERIDE 5 MG TABLET PO SCH (08:37)
[2016-10-21] MEDS: METOPROLOL TARTRATE 50 MG TABLET PO SCH ×3 (08:37→21:25)
[2016-10-21] MEDS: AMIODARONE 200 MG TABLET PO SCH (08:37)
[2016-10-21] MEDS: amLODIPine 5 MG TABLET PO SCH (08:37)
[2016-10-21] MEDS: DESITIN 4OZ/NYSTATIN 15 GRAM MIXTURE PASTE TOP SCH ×2 (08:38→23:33)
[2016-10-21] MEDS: TAMSULOSIN 0.4 MG CAPSULE PO SCH (08:38)
--- NOTE | 2016-10-21 11:07 | Hospitalist Progress Note ---
Assessment and Plan (1) Aspiration pneumonia Status: Acute Assessment and plan: The patient is presently stable on the ventilator but not making progress toward extubation. Prognosis is poor considering the patient's multiple comorbidities. I coordinated care with Dr. Lord and with Dr. Graham. The patient will continue present care plan. We will recheck electrolytes and CBC in the morning. Current Visit: Yes Qualifiers: Aspiration pneumonia type: due to gastric secretions Lung location: unspecified part of lung (2) History of multiple strokes Status: Chronic Current Visit: No (3) Acute on chronic renal failure Status: Acute Current Visit: No Qualifiers: Chronic kidney disease stage: stage 4 (severe) (4) Patient is Jew Status: Chronic Current Visit: Yes (5) Chronic respiratory failure Status: Acute Current Visit: Yes Hospitalist: Subjective Interval history: The patient is resting quietly on ventilator. There have been no overt signs of bleeding. The patient is tolerating tube feedings per PEG. Exam - Constitutional Vitals: Period Temp Pulse Resp BP Sys/Crespo Pulse Ox Last 24 Hr 97.6 F-98.9 F 61-80 12-21 115-167/47-62 90-99 Exam: Constitutional System: No distress. No tremulousness. The patient is resting on the ventilator but not tolerating spontaneous ventilation trials. Head: Normocephalic, atraumatic. Ears, Nose and Throat System: No evidence of Otitis or Mastoiditis. No epistaxis or discharge Eyes System: Pupils equal, round, and reactive. Extraocular muscles intact. Neck: Supple, without adenopathy, No jugular venous distention. No thyromegaly , neck mass, or prior surgery apparent. Respiratory System: Chest moderate right-sided rhonchi to auscultation. Cardiovascular System: Heart with regular rate and rhythm. No murmur. GI System: Abdomen soft, nontender. Normo active bowel sounds present. Musculoskeletal System: limbs with no pedal edema. Full distal pulses. Neurological System: No discernable sensory deficit. No aphasia Psychiatric System: Conversation is rational Results - Labs CBC & BMP: 10/21/16 03:40 10/21/16 03:40 Lab Results: I have reviewed the past 24 hour labs
[2016-10-21] MEDS: INSULIN GLARGINE 100 UNIT/ML SUBCUT SCH (21:24)
[2016-10-22] MEDS: ALBUTEROL 2.5 MG/3 ML NEB RESP TX SCH ×4 (02:02→19:01)
[2016-10-22 03:24] LABS: ABG Base Excess -7.6 MMOL/L (-2.5-2.5); ABG HCO3 18.1 MMOL/L (20-26); ABG Oxygen Saturation 97.6 % (95-100); ABG PCO2 34.6 MM HG (35-48); ABG PH 7.319 (7.35-7.45); ABG PO2 94.7 MM HG (80-95); ABG TCO2 17.2 MMOL/L (23-27); Allen Test Positive; Pt O2 Delivery Device Ventilator
[2016-10-22 04:28] LABS: Eosinophils # 0.7 10*3/uL (0.0-0.87); Eosinophils % 6.1 % (0.00-10.9); Immature Granulocytes % 1.5 %; Immature Granulocytes Absolute 0.17 #; Lymphocytes # 0.5 10*3/uL (1.4-4.0); Lymphocytes % 4.2 % (21.2-54.2); Mean Corpuscular HGB Conc 30.1 GM/DL (32-36); Mean Corpuscular Hemoglobin 30 PG (27-34); Mean Corpuscular Volume 97.8 FL (87-102); Mean Platelet Volume 14.1 FL (9.6-12.0); Monocytes # 0.5 10*3/uL (0.11-0.8); Monocytes % 4.8 % (1.7-12.7); NRBC # 0.04 10*3/uL; Neutrophils # 9.2 10*3/uL (1.4-7.4); Neutrophils % 83.4 % (38.7-73.9); Platelet Count 225 T/CUMM (130-400); Red Blood Count 1.39 MC/CUMM (3.8-5.5); Red Cell Distribution Width 21.2 % (9.3-17.3)
[2016-10-22 04:36] LABS: Hematocrit 13.6 VOL% (42.0-52.0); Hemoglobin 4.1 GM/DL (14.0-18.0)
[2016-10-22 04:47] LABS: Calcium 9.1 MG/DL (8.5-10.1); Magnesium 3.8 MG/DL (1.8-2.4); Osmolality,Calculated 312.8 MOS/KG (273-304); Potassium 4.1 MMOL/L (3.5-5.1)
[2016-10-22 05:10] LABS: Eosinophils 3 % (0-10); Lymphocytes 1 % (20-55); Segmented Neutrophils 94 % (50-85); Total Cells Counted 100
[2016-10-22 05:11] LABS: Platelet Estimate Normal
[2016-10-22 05:12] LABS: Hypochromasia 2+; Microcytosis 2+
[2016-10-22 05:13] LABS: Burr Cells Slight; Target Cells Slight
[2016-10-22] MEDS: INSULIN REGULAR 100 UNIT/ML SUBCUT SCH ×3 (06:09→18:29)
--- NOTE | 2016-10-22 06:53 | XRay Report ---
Exam: XR chest 1V portable Date: 10/22/2016 4:00 AM Indication: Follow-up ventilator respiratory failure Comparison: 10/21/2016 Technical:AP portable Findings: Endotracheal tube and right IJ catheter unchanged. External cardiac leads are present. Cardiomegaly is noted with underlying alveolar edema and low volume effusions present no pneumothorax. Mediastinum is intact. ASVD is present. Impression: 1. Stable appearance of life support tubing 2. Diffuse alveolar edema and effusions. 3. No significant interval change. PROCEDURE INTERPRETED AT [facility] DEPARTMENT OF RADIOLOGY Final Report Signed by: Dr. Cayetano Hayden
--- NOTE | 2016-10-22 08:07 | Pulmonology Progress Note ---
Pulmonary - PN: Subj Interval history: Patient is a 61-year-old white man that is very debilitated. 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 He has chronic renal failure with anemia chronic disease and does not want blood because the family is [employer]. He now has congestive heart failure and possible pneumonia. He developed worsening respiratory distress and basically had an arrest. Now he is on the ventilator again. The patient has been having positive stool for blood. He does have some right lower lobe pneumonia with ESBL E. coli growing out of bronchial washings. The patient looks comfortable on IMV. The patient has been reasonably stable on the ventilator. Vital signs have been stable. He did do CPAP a little better. He still has bilateral infiltrates. His lab is about the same. Exam (Progress Note) - Constitutional Vitals: Period Temp Pulse Resp BP Sys/Crespo Pulse Ox Last 24 Hr 97.5 F-98.9 F 60-75 12-25 110-156/37-74 90-99 Exam: General appearance: the patient will grimace but does not do much activity. He is still comfortable on the ventilator. - Head Head exam: Present: normal inspection, normocephalic - Eye Eye exam: Present: EOMI. Absent: scleral icterus Pupils: Present: JOVANY - ENT ENT exam: Present: The ET tube is in good position. - Neck Neck exam: Present: normal inspection. Absent: lymphadenopathy, thyromegaly - Respiratory Respiratory exam: Present: He has good breath sounds bilaterally is moving air fairly well with some rhonchi and rales bilaterally. - Cardiovascular Cardiovascular exam: Present: regular rate and rhythm, systolic murmur (He does have a soft murmur). Absent: gallop - GI/Abdominal GI/Abdominal exam: Present: hypoactive bowel sounds, soft. Absent: organomegaly , tenderness - Extremities Exam Extremities exam: Present: other (Multiple toe amputations). Absent: calf tenderness, edema - Neurological Exam Neurological exam: Present: He is grimacing some but less responsive. - Psychiatric Psychiatric exam: Absent: anxious - Skin Skin exam: Present: warm, pallor Results - Labs CBC & BMP: 10/22/16 03:05 10/22/16 03:45 Labs: Her PO2 is 94 with a PCO2 of 34 and a pH of 7.3 - Diagnostic Findings Procedure: Chest x-ray: image reviewed by me, report reviewed by me (Chest x- ray still shows bilateral infiltrates.) Assessment and Plan (1) History of multiple strokes Status: Chronic Assessment and plan: The patient has had multiple strokes and is bedridden. His mental status is unchanged. Current Visit: No (2) Dementia Status: Chronic Assessment and plan: Patient now is status post arrest and his prognosis is poor. He has no change in his mental status. Current Visit: No (3) Diabetes mellitus Status: Chronic Assessment and plan: His glucoses will be monitored. His glucose is 134 this morning. Current Visit: No Qualifiers: Diabetes mellitus type: type 2 Diabetes mellitus complication detail: with other kidney complication Diabetes mellitus usp insulin use: with usp use (4) Leg ulcer Status: Acute Assessment and plan: The patient has had bilateral leg ulcers. He has been followed by wound care. Current Visit: No (5) CKD stage 4 due to type 2 diabetes mellitus Problem details: No indication for renal replacement therapy. Pt is not a good chronic dialysis candidate due to comorbidities. Status: Chronic Assessment and plan: The patient has chronic renal failure and his creatinine is 5.0 . His urine output was on the low side yesterday. Current Visit: No (6) Chronic respiratory failure Status: Acute Assessment and plan: The patient likely has aspiration pneumonia and chronic respiratory problems. He has very poor pulmonary toilet. He also has a component of heart failure. He is now status post arrest is back on the ventilator. He does have multiorgan system failure. He still has extensive bilateral infiltrates. Ordinarily he would need a tracheostomy tube but his hematocrit is so low, no one will do surgery. He did do CPAP a little better yesterday. Will plan a therapeutic bronchoscopy tomorrow and clear airways. We will probably just have to try to extubate him at some point. Current Visit: Yes (7) Anemia, chronic disease Status: Acute Assessment and plan: The patient has chronic anemia and his hemoglobin is still 4.1. Current Visit: Yes (8) Congestive heart failure Status: Acute Assessment and plan: Patient has a tendency for heart failure but seems to be stable at present. He still has bilateral infiltrates and some of this is fluid. We will stop the IV fluids and try to diurese. If we can clear his lungs a little bit will try to extubate him. Current Visit: Yes Qualifiers: Congestive heart failure type: diastolic Congestive heart failure chronicity: acute on chronic Qualified Code(s): I50.33 - Acute on chronic diastolic (congestive) heart failure
[2016-10-22] MEDS ORDERED: FUROSEMIDE 40 MG/4 ML VIAL IV ONE (08:10)
[2016-10-22] MEDS: TAMSULOSIN 0.4 MG CAPSULE PO SCH (08:47)
[2016-10-22] MEDS: AMIODARONE 200 MG TABLET PO SCH (08:47)
[2016-10-22] MEDS: FOLIC ACID 0.4 MG TABLET PO SCH ×2 (08:47→21:16)
[2016-10-22] MEDS: BACITRACIN OINT 0.9 GM PACK TOP SCH (08:47)
[2016-10-22] MEDS: LANSOPRAZOLE ODT 30 MG TABLET PO SCH ×2 (08:47→21:16)
[2016-10-22] MEDS: FERROUS SULFATE 300 MG/5 ML UDCUP NG SCH ×2 (08:48→21:16)
[2016-10-22] MEDS: FINASTERIDE 5 MG TABLET PO SCH (08:48)
--- NOTE | 2016-10-22 08:51 | Nephrology Progress Note ---
Nephrology - PN: Subj Interval history: No acute overnight events. Unresponsive. CXR looks wetter. Trying to diurese for possible extubation. Creatinine stable at 5.0. Exam (PN)-Nephrology - Vital Signs Vital signs: Period Temp Pulse Resp BP Sys/Crespo Pulse Ox Last 24 Hr 97.5 F-98.9 F 60-75 12-25 110-156/37-74 90-99 - General Appearance General appearance: chronically ill, intubated EENT: ATNC, PERRL Neck: no JVD, no thyromegaly Respiratory: no kyphosis, clear Cardiology: no murmurs, no rub Gastrointestinal: normoactive bowel sounds, no tenderness Integumentary: no rash, warm and dry Neurologic: no asterixis, obtunded Musculoskeletal: no deformities, no erythema - Lab 10/22/16 03:05 10/22/16 03:45 Most recent lab results ABG pH 7.319 (7.35-7.45) L 10/22/16 03:09 ABG pCO2 34.6 MM HG (35-48) L 10/22/16 03:09 ABG pO2 94.7 MM HG (80-95) 10/22/16 03:09 ABG HCO3 18.1 MMOL/L (20-26) L 10/22/16 03:09 ABG O2 Saturation 97.6 % (95-100) 10/22/16 03:09 Calcium 9.1 MG/DL (8.5-10.1) 10/22/16 03:45 Phosphorus 9.6 MG/DL (2.5-4.9) H 10/20/16 04:25 Magnesium 3.8 MG/DL (1.8-2.4) H 10/22/16 03:45 Assessment and Plan (1) CKD stage 4 due to type 2 diabetes mellitus Problem details: No indication for renal replacement therapy. Pt is not a good chronic dialysis candidate due to comorbidities. Status: Chronic Assessment and plan: Continue conservative/expectant care. Current Visit: No (2) Hyponatremia Problem details: Improved from 126 to 129. Status: Acute Assessment and plan: FeUrea 31% c/w prerenal azotemia. Stop lasix start maintenance IVFs. Check renal panel and CBC in am. Current Visit: Yes (3) Congestive heart failure Problem details: Increase lasix to 80 mg bid. Start albumin 25gms q8h to help with lasix delivery, improve oncotic pressure. Status: Acute Current Visit: Yes Qualifiers: Congestive heart failure type: diastolic Congestive heart failure chronicity: acute on chronic Qualified Code(s): I50.33 - Acute on chronic diastolic (congestive) heart failure (4) Dementia Status: Chronic Current Visit: No (5) Anemia Problem details: Multiple ulcerations found on EGD. PPI increased to BID. Bx pathology pending. Status: Chronic Assessment and plan: CBC in am. Current Visit: No Qualifiers: Anemia type: due to chronic kidney disease Chronic kidney disease stage: stage 4 (severe) Qualified Code(s): N18.4 - Chronic kidney disease, stage 4 ( severe); D63.1 - Anemia in chronic kidney disease (6) Sequela of cerebrovascular accident Status: Chronic Current Visit: Yes
[2016-10-22] MEDS: ALBUMIN 25% 25 GM in PREMIX 1 EACH IV SCH ×2 (09:30→16:40)
[2016-10-22] MEDS: ISOSORBIDE DINITRATE 10 MG TABLET PO SCH ×2 (09:32→20:59)
[2016-10-22] MEDS: DILTIAZEM 60 MG TABLET PO SCH ×4 (09:33→20:20)
[2016-10-22] MEDS: CYANOCOBALAMIN 1000 MCG/1 ML VIAL IM SCH (09:33)
[2016-10-22] MEDS: amLODIPine 5 MG TABLET PO SCH (09:33)
[2016-10-22] MEDS: METOPROLOL TARTRATE 50 MG TABLET PO SCH ×3 (09:33→20:59)
[2016-10-22] MEDS: SERTRALINE 25 MG TABLET PO SCH (09:36)
--- NOTE | 2016-10-22 10:02 | Hospitalist Progress Note ---
Assessment and Plan (1) Aspiration pneumonia Status: Acute Assessment and plan: The patient is presently stable on the ventilator and making incremental progress toward extubation. Prognosis is poor considering the patient's multiple comorbidities. I coordinated care with Dr. Lord and with Dr. Graham. The patient will continue present care plan. We will recheck electrolytes and CBC in the morning. Current Visit: Yes Qualifiers: Aspiration pneumonia type: due to gastric secretions Lung location: unspecified part of lung (2) History of multiple strokes Status: Chronic Current Visit: No (3) Acute on chronic renal failure Status: Acute Current Visit: No Qualifiers: Chronic kidney disease stage: stage 4 (severe) (4) Patient is Episcopalian Status: Chronic Current Visit: Yes (5) Chronic respiratory failure Status: Acute Current Visit: Yes Hospitalist: Subjective Interval history: The patient is resting quietly on ventilator today. He is making incremental progress with CPAP. The patient is now on IMV type ventilation. The patient is not alert. Exam - Constitutional Vitals: Period Temp Pulse Resp BP Sys/Crespo Pulse Ox Last 24 Hr 97.5 F-98.9 F 60-74 12-25 110-156/37-74 90-99 Exam: Constitutional System: No distress. No tremulousness. The patient is resting on the ventilator but not tolerating spontaneous ventilation trials. Head: Normocephalic, atraumatic. Ears, Nose and Throat System: No evidence of Otitis or Mastoiditis. No epistaxis or discharge Eyes System: Pupils equal, round, and reactive. Extraocular muscles intact. Neck: Supple, without adenopathy, No jugular venous distention. No thyromegaly , neck mass, or prior surgery apparent. Respiratory System: Chest moderate right-sided rhonchi to auscultation. Cardiovascular System: Heart with regular rate and rhythm. No murmur. GI System: Abdomen soft, nontender. Normo active bowel sounds present. Musculoskeletal System: limbs with no pedal edema. Full distal pulses. Neurological System: No discernable sensory deficit. No aphasia Psychiatric System: Conversation is rational Results - Labs CBC & BMP: 10/22/16 03:05 10/22/16 03:45 Lab Results: I have reviewed the past 24 hour labs
--- NOTE | 2016-10-22 11:57 | Gastrointestinal Progress Note ---
Assessment and Plan (1) Anemia Problem details: Multiple ulcerations found on EGD. PPI increased to BID. Bx pathology pending. Status: Chronic Assessment and plan: 10/22-hemoglobin holding at 4.1 without overt bleeding. Plan an addendum to followed by Dr. Leo. 10/18-No overt bleeding over the weekend. Hgb holds at this time at 4.3. Plan and addendum to follow by Dr Leo. 10/17-no reports of overt bleeding. EGD findings on yesterday noted. Continue to monitor at this time. Plan an addendum to follow by Dr. Leo. 10/15-no changes at present time. No overt bleeding reported. Discussed with Dr. Leo and at this time will plan to proceed with EGD tomorrow to further evaluate source of anemia and heme positive stools. Father plan an addendum to followed by Dr. Leo peer Current Visit: No Qualifiers: Anemia type: due to chronic kidney disease Chronic kidney disease stage: stage 4 (severe) Qualified Code(s): N18.4 - Chronic kidney disease, stage 4 ( severe); D63.1 - Anemia in chronic kidney disease (2) PEG tube malfunction Status: Acute Assessment and plan: 10/22-findings overnight of using tube feedings at PEG tube site. Minimal to no residuals. Maceration and erythema noted as well as air bubbles around site. GI Lab to further evaluate. Plan an addendum to followed by Dr. Leo. Current Visit: Yes Gastroenterology - PN: Subj Interval history: CC: Leaking PEG tube GI was reconsulted to assess PEG tube after findings on mold shifter of tube feeding is oozing around the PEG site as well as reports of air bubbles noted. Patient remains on the ventilator at this time and is continuing with a weaning process. He is having no reported signs of overt bleeding. Nursing staff is at bedside and states that he has had minimal to no residuals with his tube feedings however PEG tube site is noted to be somewhat macerated with erythema and some slight PEG tube stained drainage and observance of air bubbles noted around the PEG site. Abdomen is soft, nontender. GI Lab notified and to come for further assessment. ROS: No acute distress at this time. Exam (Progress Note) - Constitutional Vitals: Period Temp Pulse Resp BP Sys/Crespo Pulse Ox Last 24 Hr 97.5 F-98.9 F 60-74 12-25 110-156/37-74 90-99 General appearance: no acute distress, over weight - Head Head exam: Present: normal inspection, normocephalic - Eye Eye exam: Present: other (Lids and conjunctive are unremarkable). Absent: scleral icterus - ENT ENT exam: Present: normal exam, normal oropharynx - Neck Neck exam: Present: normal inspection - Respiratory Respiratory exam: Present: clear to auscultation bilaterally. Absent: rales, rhonchi, wheezes - Cardiovascular Cardiovascular exam: Present: regular rate and rhythm. Absent: diastolic murmur , JVD, systolic murmur - GI/Abdominal GI/Abdominal exam: Present: normal bowel sounds, soft. Absent: ascites, distended, mass, organomegaly, tenderness - Extremities Exam Extremities exam: Present: normal inspection, full ROM - Back Exam Back exam: Present: normal inspection - Neurological Exam Neurological exam: Present: altered - Psychiatric Psychiatric exam: Present: other - Skin Skin exam: Present: warm, dry, pallor Results - Labs CBC & BMP: 10/22/16 03:05 10/22/16 03:45 Lab Results: I have reviewed the past 24 hour labs
[2016-10-22] MEDS: DESITIN 4OZ/NYSTATIN 15 GRAM MIXTURE PASTE TOP SCH ×2 (13:10→21:16)
[2016-10-22] MEDS: EPOETIN ALFA 10,000 UNIT/1 ML VIAL SUBCUT SCH (13:10)
[2016-10-22] MEDS: FUROSEMIDE 40 MG/4 ML VIAL IV SCH (16:40)
[2016-10-22] MEDS ORDERED: SODIUM CHLORIDE 0.9% 500 ML IV ONE (18:23)
[2016-10-22] MEDS: INSULIN GLARGINE 100 UNIT/ML SUBCUT SCH (20:27)
[2016-10-23] MEDS: INSULIN REGULAR 100 UNIT/ML SUBCUT SCH ×4 (00:24→17:33)
[2016-10-23] MEDS: ALBUMIN 25% 25 GM in PREMIX 1 EACH IV SCH ×3 (01:09→17:00)
[2016-10-23] MEDS: ALBUTEROL 2.5 MG/3 ML NEB RESP TX SCH ×4 (01:15→19:20)
[2016-10-23 03:30] LABS: ABG Oxygen Saturation 95.9 % (95-100); ABG PCO2 41.9 MM HG (35-48); ABG PH 7.234 (7.35-7.45); ABG PO2 89.5 MM HG (80-95); ABG TCO2 17.4 MMOL/L (23-27); Allen Test Positive; Pt O2 Delivery Device Ventilator
[2016-10-23 04:59] LABS: Basophils % 0.1 % (0.0-0.8); Eosinophils # 0.2 10*3/uL (0.0-0.87); Eosinophils % 1.4 % (0.00-10.9); Immature Granulocytes % 1.3 %; Immature Granulocytes Absolute 0.16 #; Lymphocytes # 0.3 10*3/uL (1.4-4.0); Lymphocytes % 2.5 % (21.2-54.2); Mean Corpuscular HGB Conc 29.8 GM/DL (32-36); Mean Corpuscular Hemoglobin 29 PG (27-34); Mean Corpuscular Volume 96.3 FL (87-102); Mean Platelet Volume 13.8 FL (9.6-12.0); Monocytes # 0.5 10*3/uL (0.11-0.8); Monocytes % 3.7 % (1.7-12.7); NRBC # 0.03 10*3/uL; Neutrophils # 11.5 10*3/uL (1.4-7.4); Platelet Count 187 T/CUMM (130-400); Red Blood Count 1.36 MC/CUMM (3.8-5.5); Red Cell Distribution Width 20.5 % (9.3-17.3); White Blood Count 12.6 T/CUMM (4-12)
[2016-10-23 05:01] LABS: Hematocrit 13.1 VOL% (42.0-52.0); Hemoglobin 3.9 GM/DL (14.0-18.0)
[2016-10-23 05:32] LABS: Band Neutrophils 3 % (0-10); Giant Platelets Few; Hypochromasia 1+; Lymphocytes 2 % (20-55); Microcytosis 1+; Platelet Estimate Adequate; Segmented Neutrophils 92 % (50-85); Total Cells Counted 100
[2016-10-23 05:54] LABS: Calcium 8.4 MG/DL (8.5-10.1); Magnesium 3.9 MG/DL (1.8-2.4); Osmolality,Calculated 322.7 MOS/KG (273-304); Potassium 4.2 MMOL/L (3.5-5.1)
--- NOTE | 2016-10-23 07:35 | XRay Report ---
Exam: XR chest 1V portable Date: 10/23/2016 4:00 AM Indication: Follow-up ventilator respiratory failure Comparison: 10/22/2016 Technical:AP portable Findings: Mild cardiac enlargement. External cardiac leads are present. Right IJ catheter is present. Endotracheal tube is level of mid clavicle. Patchy alveolar infiltrates and low volume effusions are present bilaterally. Cardiomegaly is noted. Impression: 1. Stable appearance of life support tubing 2. Persistent diffuse alveolar interstitial densities and effusions associated cardiac enlargement unchanged from prior exam without pneumothorax. A component of underlying ARDS cannot be excluded PROCEDURE INTERPRETED AT [facility] DEPARTMENT OF RADIOLOGY Final Report Signed by: Dr. Cayetano Hayden
--- NOTE | 2016-10-23 08:00 | Pulmonology Progress Note ---
Pulmonary - PN: Subj Interval history: Patient is a 61-year-old white man that is very debilitated. 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 He has chronic renal failure with anemia chronic disease and does not want blood because the family is [employer]. He now has congestive heart failure and possible pneumonia. He developed worsening respiratory distress and basically had an arrest. Now he is on the ventilator again. The patient has been having positive stool for blood. He does have some right lower lobe pneumonia with ESBL E. coli growing out of bronchial washings. The patient looks comfortable on IMV. The patient still drops his O2 saturations quite easily. His x-ray still shows bilateral infiltrates. He does not diuresed very well at all. Will try therapeutic bronchoscopy but his chances of improving are very small. Exam (Progress Note) - Constitutional Vitals: Period Temp Pulse Resp BP Sys/Crespo Pulse Ox Last 24 Hr 97.4 F-97.7 F 58-65 8-23 109-143/41-59 20-100 Exam: General appearance: the patient is not responding very well. He is still requiring full ventilatory support. - Head Head exam: Present: normal inspection, normocephalic - Eye Eye exam: Present: EOMI. Absent: scleral icterus Pupils: Present: JOVANY - ENT ENT exam: Present: The ET tube is in good position. - Neck Neck exam: Present: normal inspection. Absent: lymphadenopathy, thyromegaly - Respiratory Respiratory exam: Present: He has good breath sounds bilaterally is moving air fairly well with some rhonchi and rales bilaterally. - Cardiovascular Cardiovascular exam: Present: regular rate and rhythm, systolic murmur (He does have a soft murmur). Absent: gallop - GI/Abdominal GI/Abdominal exam: Present: hypoactive bowel sounds, soft. Absent: organomegaly , tenderness - Extremities Exam Extremities exam: Present: other (Multiple toe amputations). Absent: calf tenderness, edema - Neurological Exam Neurological exam: Present: He is grimacing some but less responsive. He does not move his extremities very much at all. - Psychiatric Psychiatric exam: Absent: anxious - Skin Skin exam: Present: warm, pallor Results - Labs CBC & BMP: 10/23/16 04:45 10/23/16 04:45 - Diagnostic Findings Procedure: Chest x-ray: image reviewed by me, report reviewed by me (Chest x- ray still shows bilateral infiltrates.) Assessment and Plan (1) History of multiple strokes Status: Chronic Assessment and plan: The patient has had multiple strokes and is bedridden. His mental status is unchanged. Current Visit: No (2) Dementia Status: Chronic Assessment and plan: Patient now is status post arrest and his prognosis is poor. He has no change in his mental status. Current Visit: No (3) Diabetes mellitus Status: Chronic Assessment and plan: His glucoses will be monitored. His glucose is 135 this morning. Current Visit: No Qualifiers: Diabetes mellitus type: type 2 Diabetes mellitus complication detail: with other kidney complication Diabetes mellitus meterman insulin use: with meterman use (4) Leg ulcer Status: Acute Assessment and plan: The patient has had bilateral leg ulcers. He has been followed by wound care. Current Visit: No (5) CKD stage 4 due to type 2 diabetes mellitus Problem details: No indication for renal replacement therapy. Pt is not a good chronic dialysis candidate due to comorbidities. Status: Chronic Assessment and plan: The patient has chronic renal failure and his creatinine is 5.3 . His urine output was on the low side yesterday. Current Visit: No (6) Chronic respiratory failure Status: Acute Assessment and plan: The patient likely has aspiration pneumonia and chronic respiratory problems. He has very poor pulmonary toilet. He also has a component of heart failure. He is now status post arrest is back on the ventilator. He does have multiorgan system failure. He still has extensive bilateral infiltrates. Ordinarily he would need a tracheostomy tube but his hematocrit is so low, no one will do surgery. He did do CPAP a little better yesterday. Will try a therapeutic bronchoscopy but his prognosis is poor Current Visit: Yes (7) Anemia, chronic disease Status: Acute Assessment and plan: The patient has chronic anemia and his hemoglobin is still 3.9. Current Visit: Yes (8) Congestive heart failure Problem details: Increase lasix to 80 mg bid. Start albumin 25gms q8h to help with lasix delivery, improve oncotic pressure. Status: Acute Assessment and plan: Patient has a tendency for heart failure but seems to be stable at present. He still has bilateral infiltrates and some of this is fluid. He is not diuresing very well and his renal function is worse and his chest x-ray is about the same. His outlook is very poor. Current Visit: Yes Qualifiers: Congestive heart failure type: diastolic Congestive heart failure chronicity: acute on chronic Qualified Code(s): I50.33 - Acute on chronic diastolic (congestive) heart failure
--- NOTE | 2016-10-23 08:05 | Operative Note ---
Date of procedure: 10/23/16 Pre-op diagnosis: Respiratory failure Post-op diagnosis: other (Mild retained secretions and mucous plugging.) Procedure: The patient is on the ventilator with respiratory failure bilateral infiltrates. A therapeutic bronchoscopy will be done to try to improve oxygenation. Procedure: The fiberoptic bronchoscope was passed to the ET tube into the airways. The bronchopulmonary segment were identified but no specimens obtained. Findings: The ET tube is in good position in the trachea. The main bronchi are open. There is a mild bronchitis but no endobronchial lesion seen. There is small amount of thick secretions and mucous plugs that were washed and cleared bilaterally. The secretions were not that bad at this time. Once the airways were clear the procedure was stopped. He tolerated the procedure well without problems. He does drop his O2 saturation quite easily. Impression: Respiratory failure with extensive bilateral infiltrates. Mild mucous plugging. Plan: We will continue to try to wean from the ventilator. Anesthesia: conscious sedation Surgeon / Physician: Brett Lord Estimated blood loss: none Specimens: none sent Condition: critical Disposition: ICU Results - Labs CBC & BMP: 10/23/16 04:45 10/23/16 04:45 Discharge Plan - Discharge Medications No Action Sertraline [Zoloft] 25 mg PO DAILY Pregabalin [Lyrica] 225 mg PO BID Metoprolol Tartrate 50 mg PO TID Methocarbamol 500 mg PO BID PRN PRN Reason: Pain Tamsulosin [Flomax] 0.4 mg PO DAILY Finasteride 5 mg PO DAILY cloNIDine TAB [Catapres Tab] 0.1 mg PO Q4H Aspirin EC Tab 81 mg PO QPM Valsartan 80 mg PO QID Pantoprazole Tab [Protonix Tab] 40 mg PO DAILY Simvastatin 20 mg PO BEDTIME Albuterol/Ipratropium Neb [Duoneb] 3 ml RESP TX RT Q4H #120 vial Folic Acid Tab 0.4 mg PO BID #60 tablet Albuterol/Ipratropium Neb [Duoneb] 3 ml RESP TX RT Q4H cloNIDine TAB [Catapres Tab] 0.1 mg PO Q4H Cyanocobalamin Tab [Vitamin B12 Tab] 500 mcg PO BID Ferrous Sulfate Tab [Feosol Original Tab] 325 mg PO BID Finasteride [Proscar] 5 mg PO DAILY Folic Acid Tab 0.4 mg PO BID Isosorbide Mononitrate [Imdur] 30 mg PO DAILY Methocarbamol Tab [Robaxin Tab] 500 mg PO BID PRN PRN Reason: Pain Pantoprazole Tab [Protonix Tab] 40 mg PO DAILY Pregabalin [Lyrica] 225 mg PO BID Sertraline [Zoloft] 25 mg PO DAILY Simvastatin 20 mg PO QPM Valsartan 80 mg PO QID Isosorbide Mononitrate [Imdur] 30 mg PO DAILY Ferrous Sulfate 325 mg PO BID Acetaminophen Tab [Tylenol Tab] 325 mg PO Q4H PRN tablet PRN Reason: fever, headache/body aches Cyanocobalamin Tab [Vitamin B12 Tab] 500 mcg PO BID #60 tablet Insulin Glargine [Lantus] 15 unit SUBCUT BEDTIME #1 packet Acetaminophen Tab [Tylenol Tab] 325 mg PO Q4H PRN PRN Reason: Pain Aspirin EC Tab 81 mg PO QPM Insulin Glargine [Lantus] 15 unit SUBCUT BEDTIME Metoprolol Tartrate Tab [Lopressor Tab] 50 mg PO TID Tamsulosin [Flomax] 0.4 mg PO DAILY - Follow Up or Referral - Forms/Instructions
[2016-10-23] MEDS: FUROSEMIDE 40 MG/4 ML VIAL IV SCH (08:55)
[2016-10-23] MEDS: FERROUS SULFATE 300 MG/5 ML UDCUP NG SCH ×2 (08:55→22:24)
[2016-10-23] MEDS: AMIODARONE 200 MG TABLET PO SCH (08:55)
[2016-10-23] MEDS: BACITRACIN OINT 0.9 GM PACK TOP SCH (08:56)
[2016-10-23] MEDS: FINASTERIDE 5 MG TABLET PO SCH (08:56)
[2016-10-23] MEDS: FOLIC ACID 0.4 MG TABLET PO SCH ×2 (08:56→22:24)
[2016-10-23] MEDS: SERTRALINE 25 MG TABLET PO SCH (08:56)
[2016-10-23] MEDS: LANSOPRAZOLE ODT 30 MG TABLET PO SCH ×2 (08:56→22:25)
[2016-10-23] MEDS: TAMSULOSIN 0.4 MG CAPSULE PO SCH (08:56)
--- NOTE | 2016-10-23 09:27 | Nephrology Progress Note ---
Nephrology - PN: Subj Interval history: Pt opens eyes upon examination. Edema unchanged. UOP dropping despite high dose lasix and albumin q8h. BNP >2k. S/P FOB this am to clear secretions. Hgb 3.9. Exam (PN)-Nephrology - Vital Signs Vital signs: Period Temp Pulse Resp BP Sys/Crespo Pulse Ox Last 24 Hr 96.6 F-97.7 F 57-65 8-23 109-143/41-59 20-100 - General Appearance General appearance: obese, chronically ill, intubated EENT: ATNC, PERRL Neck: JVD, no carotid bruit Respiratory: no kyphosis, clear Cardiology: no murmurs, no rub, edema Gastrointestinal: normoactive bowel sounds, no tenderness Integumentary: no rash, warm and dry Neurologic: no asterixis Musculoskeletal: no deformities, no erythema - Lab 10/23/16 04:45 10/23/16 04:45 Most recent lab results ABG pH 7.234 (7.35-7.45) L 10/23/16 03:20 ABG pCO2 41.9 MM HG (35-48) 10/23/16 03:20 ABG pO2 89.5 MM HG (80-95) 10/23/16 03:20 ABG HCO3 17.0 MMOL/L (20-26) L 10/23/16 03:20 ABG O2 Saturation 95.9 % (95-100) 10/23/16 03:20 Calcium 8.4 MG/DL (8.5-10.1) L 10/23/16 04:45 Phosphorus 9.6 MG/DL (2.5-4.9) H 10/20/16 04:25 Magnesium 3.9 MG/DL (1.8-2.4) H 10/23/16 04:45 Assessment and Plan (1) CKD stage 4 due to type 2 diabetes mellitus Problem details: No indication for renal replacement therapy. Pt is not a good chronic dialysis candidate due to comorbidities. Status: Chronic Assessment and plan: Continue conservative/expectant care. Current Visit: No (2) Hyponatremia Problem details: Improved from 126 to 129. Status: Acute Assessment and plan: FeUrea 31% c/w prerenal azotemia. Stop lasix start maintenance IVFs. Check renal panel and CBC in am. Current Visit: Yes (3) Congestive heart failure Problem details: Increased lasix to 160 mg bid. Continue albumin 25gms q8h one more day. Status: Acute Current Visit: Yes Qualifiers: Congestive heart failure type: diastolic Congestive heart failure chronicity: acute on chronic Qualified Code(s): I50.33 - Acute on chronic diastolic (congestive) heart failure (4) Dementia Status: Chronic Current Visit: No (5) Anemia Problem details: Multiple ulcerations found on EGD. PPI increased to BID. Bx pathology pending. Status: Chronic Assessment and plan: CBC in am. Current Visit: No Qualifiers: Anemia type: due to chronic kidney disease Chronic kidney disease stage: stage 4 (severe) Qualified Code(s): N18.4 - Chronic kidney disease, stage 4 ( severe); D63.1 - Anemia in chronic kidney disease (6) Sequela of cerebrovascular accident Status: Chronic Current Visit: Yes
[2016-10-23] MEDS: amLODIPine 5 MG TABLET PO SCH (09:45)
[2016-10-23] MEDS: DILTIAZEM 60 MG TABLET PO SCH ×4 (09:45→22:09)
[2016-10-23] MEDS: METOPROLOL TARTRATE 50 MG TABLET PO SCH ×3 (09:45→22:11)
[2016-10-23] MEDS: ISOSORBIDE DINITRATE 10 MG TABLET PO SCH ×2 (09:45→22:09)
[2016-10-23] MEDS: DESITIN 4OZ/NYSTATIN 15 GRAM MIXTURE PASTE TOP SCH ×2 (09:46→22:26)
[2016-10-23] MEDS: CYANOCOBALAMIN 1000 MCG/1 ML VIAL IM SCH (09:46)
--- NOTE | 2016-10-23 11:30 | Hospitalist Progress Note ---
Assessment and Plan (1) Aspiration pneumonia Status: Acute Assessment and plan: The patient is presently stable on the ventilator and making incremental progress toward extubation. Prognosis is poor considering the patient's multiple comorbidities. I coordinated care with Dr. Lord and with Dr. Graham. The patient will continue present care plan. We will recheck electrolytes and CBC in the morning. Current Visit: Yes Qualifiers: Aspiration pneumonia type: due to gastric secretions Lung location: unspecified part of lung (2) History of multiple strokes Status: Chronic Current Visit: No (3) Acute on chronic renal failure Status: Acute Current Visit: No Qualifiers: Chronic kidney disease stage: stage 4 (severe) (4) Patient is Yazidism Status: Chronic Current Visit: Yes (5) Chronic respiratory failure Status: Acute Current Visit: Yes Hospitalist: Subjective Interval history: Mr. Kim is resting quietly following bronchoscopy this morning to clear mucus plugging. The patient was obstipated and required mechanical disimpaction which led to some rectal bleeding this morning. Exam - Constitutional Vitals: Period Temp Pulse Resp BP Sys/Crespo Pulse Ox Last 24 Hr 96.6 F-97.7 F 55-65 8-23 109-143/41-59 20-100 Exam: Constitutional System: No distress. No tremulousness. The patient is resting on the ventilator but not tolerating spontaneous ventilation trials. Head: Normocephalic, atraumatic. Ears, Nose and Throat System: No evidence of Otitis or Mastoiditis. No epistaxis or discharge Eyes System: Pupils equal, round, and reactive. Extraocular muscles intact. Neck: Supple, without adenopathy, No jugular venous distention. No thyromegaly , neck mass, or prior surgery apparent. Respiratory System: Chest moderate right-sided rhonchi to auscultation. Cardiovascular System: Heart with regular rate and rhythm. No murmur. GI System: Abdomen soft, nontender. Normo active bowel sounds present. Musculoskeletal System: limbs with no pedal edema. Full distal pulses. Neurological System: No discernable sensory deficit. No aphasia Psychiatric System: Conversation is rational Results - Labs CBC & BMP: 10/23/16 04:45 10/23/16 04:45 Lab Results: I have reviewed the past 24 hour labs
--- NOTE | 2016-10-23 13:39 | XRay Report ---
Exam: XR KUB Date: 10/23/2016 8:42 AM Comparison: 10/08/2016 Indication: Ileus Technique:[Supine abdomen] Findings: Nonobstructed bowel gas pattern. PEG tube projecting in the area of the stomach. Degenerative changes are noted with vascular calcifications. Impression: Nonobstructed bowel gas pattern. Persistent increased fecal material in colon. PEG tube projecting in the area of the stomach. PROCEDURE INTERPRETED AT [facility] DEPARTMENT OF RADIOLOGY Final Report Signed by: Dr. Danielle Dyer
[2016-10-23] MEDS: FUROSEMIDE 100 MG/10 ML VIAL IV SCH (22:25)
[2016-10-23] MEDS: INSULIN GLARGINE 100 UNIT/ML SUBCUT SCH (22:25)
[2016-10-23] MEDS ORDERED: LACTULOSE 20 GM/30 ML UDCUP PO ONE (22:55)
[2016-10-23] MEDS ORDERED: POLYETHYLENE GLYCOL POWDER 17 GM PACK PO PRN (22:55)
[2016-10-24] MEDS: INSULIN REGULAR 100 UNIT/ML SUBCUT SCH ×4 (00:14→18:54)
[2016-10-24] MEDS: ALBUTEROL 2.5 MG/3 ML NEB RESP TX SCH ×4 (01:07→19:34)
[2016-10-24] MEDS: ALBUMIN 25% 25 GM in PREMIX 1 EACH IV SCH (01:09)
--- NOTE | 2016-10-24 06:12 | Nephrology Progress Note ---
Nephrology - PN: Subj Interval history: No acute overnight events. Intubated/ventilated. Unresponsive. UOP decreased. Exam (PN)-Nephrology - Vital Signs Vital signs: Period Temp Pulse Resp BP Sys/Crespo Pulse Ox Last 24 Hr 96.4 F-97.6 F 55-70 11-50 116-143/41-68 88-100 - General Appearance General appearance: obese, chronically ill, sedated on ventilator, intubated EENT: ATNC, PERRL, mucous membranes dry Neck: no JVD, no thyromegaly Respiratory: no kyphosis, clear Cardiology: no murmurs, no rub Gastrointestinal: normoactive bowel sounds, no tenderness Integumentary: no rash, warm and dry Neurologic: obtunded Musculoskeletal: no deformities, no erythema - Lab 10/23/16 04:45 10/23/16 04:45 Most recent lab results ABG pH 7.234 (7.35-7.45) L 10/23/16 03:20 ABG pCO2 41.9 MM HG (35-48) 10/23/16 03:20 ABG pO2 89.5 MM HG (80-95) 10/23/16 03:20 ABG HCO3 17.0 MMOL/L (20-26) L 10/23/16 03:20 ABG O2 Saturation 95.9 % (95-100) 10/23/16 03:20 Calcium 8.4 MG/DL (8.5-10.1) L 10/23/16 04:45 Phosphorus 9.6 MG/DL (2.5-4.9) H 10/20/16 04:25 Magnesium 3.9 MG/DL (1.8-2.4) H 10/23/16 04:45 Assessment and Plan (1) CKD stage 4 due to type 2 diabetes mellitus Problem details: No indication for renal replacement therapy. Pt is not a good chronic dialysis candidate due to comorbidities. Status: Chronic Assessment and plan: Continue conservative/expectant care. Current Visit: No (2) Congestive heart failure Problem details: Increased lasix to 160 mg bid. D/C albumin. Status: Chronic Current Visit: Yes Qualifiers: Congestive heart failure type: diastolic Congestive heart failure chronicity: acute on chronic Qualified Code(s): I50.33 - Acute on chronic diastolic (congestive) heart failure (3) Dementia Status: Chronic Current Visit: No (4) Anemia Problem details: Multiple ulcerations found on EGD. PPI increased to BID. Bx pathology pending. Status: Chronic Current Visit: No Qualifiers: Anemia type: due to chronic kidney disease Chronic kidney disease stage: stage 4 (severe) Qualified Code(s): N18.4 - Chronic kidney disease, stage 4 ( severe); D63.1 - Anemia in chronic kidney disease (5) Sequela of cerebrovascular accident Status: Chronic Current Visit: Yes
--- NOTE | 2016-10-24 06:24 | XRay Report ---
Exam: XR chest 1V portable Date: 10/24/2016 4:00 AM Indication: Respiratory failure follow-up ventilator Comparison: 10/23/2016 Technical: AP portable Findings: Right IJ catheter is present. Endotracheal tube is at the level of aortic knob. Low volume effusions and alveolar edema and infiltrates are present without pneumothorax. ASVD is present. Mediastinum is otherwise intact. External cardiac leads are present. Impression: 1. Stable appearance of life support tubing 2. Persistent diffuse interstitial alveolar infiltrates and effusions with associated cardiac enlargement PROCEDURE INTERPRETED AT [facility] DEPARTMENT OF RADIOLOGY Final Report Signed by: Dr. Cayetano Hayden
--- NOTE | 2016-10-24 08:36 | Pulmonology Progress Note ---
Pulmonary - PN: Subj Interval history: Patient is a 61-year-old white man that is very debilitated. 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 He has chronic renal failure with anemia chronic disease and does not want blood because the family is Bahai. He now has congestive heart failure and possible pneumonia. He developed worsening respiratory distress and basically had an arrest. Now he is on the ventilator again. The patient has been having positive stool for blood. He does have some right lower lobe pneumonia with ESBL E. coli growing out of bronchial washings. The patient looks comfortable on IMV. The patient still has extensive bilateral infiltrates and is unable to do CPAP very well. He does get hypoxic quite easily. He is poorly responsive. He has decreased urine output and his creatinine is 5.3. He basically has multiorgan system dysfunction. Exam (Progress Note) - Constitutional Vitals: Period Temp Pulse Resp BP Sys/Crespo Pulse Ox Last 24 Hr 96.4 F-97.6 F 55-70 12-50 117-138/41-68 88-96 Exam: General appearance: the patient is not responding very well. He is still requiring full ventilatory support. - Head Head exam: Present: normal inspection, normocephalic - Eye Eye exam: Present: EOMI. Absent: scleral icterus Pupils: Present: JOVANY - ENT ENT exam: Present: The ET tube is in good position. - Neck Neck exam: Present: normal inspection. Absent: lymphadenopathy, thyromegaly - Respiratory Respiratory exam: Present: He has good breath sounds bilaterally is moving air fairly well with some rhonchi and rales bilaterally. - Cardiovascular Cardiovascular exam: Present: regular rate and rhythm, systolic murmur (He does have a soft murmur). Absent: gallop - GI/Abdominal GI/Abdominal exam: Present: hypoactive bowel sounds, soft. Absent: organomegaly , tenderness - Extremities Exam Extremities exam: Present: other (Multiple toe amputations). Absent: calf tenderness, edema - Neurological Exam Neurological exam: Present: He is not very responsive now. He really does not move much at all. - Psychiatric Psychiatric exam: Absent: anxious - Skin Skin exam: Present: warm, pallor Results - Labs CBC & BMP: 10/23/16 04:45 10/23/16 04:45 - Diagnostic Findings Procedure: Chest x-ray: image reviewed by me, report reviewed by me (Chest x- ray still looks like chronic heart failure.) Assessment and Plan (1) History of multiple strokes Status: Chronic Assessment and plan: The patient has had multiple strokes and is bedridden. His mental status is unchanged. He is poorly responsive now. Current Visit: No (2) Dementia Status: Chronic Assessment and plan: Patient now is status post arrest and his prognosis is poor. He has no change in his mental status. Current Visit: No (3) Diabetes mellitus Status: Chronic Assessment and plan: His glucoses will be monitored. His glucose is 115 this morning. Current Visit: No Qualifiers: Diabetes mellitus type: type 2 Diabetes mellitus complication detail: with other kidney complication Diabetes mellitus predatory animal exterminator insulin use: with predatory animal exterminator use (4) Leg ulcer Status: Acute Assessment and plan: The patient has had bilateral leg ulcers. He has been followed by wound care. Current Visit: No (5) CKD stage 4 due to type 2 diabetes mellitus Problem details: No indication for renal replacement therapy. Pt is not a good chronic dialysis candidate due to comorbidities. Status: Chronic Assessment and plan: The patient has chronic renal failure and his creatinine is 5.3 . His urine output has been on the low side. Current Visit: No (6) Chronic respiratory failure Status: Acute Assessment and plan: The patient likely has aspiration pneumonia and chronic respiratory problems. He has very poor pulmonary toilet. He also has a component of heart failure. He is now status post arrest is back on the ventilator. He does have multiorgan system failure. He still has extensive bilateral infiltrates. Ordinarily he would need a tracheostomy tube but his hematocrit is so low, no one will do surgery. He was unable to do CPAP yesterday. His prognosis is extremely poor. This case may come to the ethics committee since the patient really needs to be taken off the ventilator and kept comfortable. Current Visit: Yes (7) Anemia, chronic disease Status: Acute Assessment and plan: The patient has chronic anemia and his hemoglobin is still 3.9. Current Visit: Yes (8) Congestive heart failure Problem details: Increased lasix to 160 mg bid. D/C albumin. Status: Chronic Assessment and plan: Patient has a tendency for heart failure but seems to be stable at present. He still has bilateral infiltrates and some of this is fluid. He is not diuresing very well and his renal function is worse and his chest x-ray is about the same. His outlook is very poor. Current Visit: Yes Qualifiers: Congestive heart failure type: diastolic Congestive heart failure chronicity: acute on chronic Qualified Code(s): I50.33 - Acute on chronic diastolic (congestive) heart failure
[2016-10-24] MEDS: SERTRALINE 25 MG TABLET PO SCH (09:01)
[2016-10-24] MEDS: FOLIC ACID 0.4 MG TABLET PO SCH ×2 (09:01→21:38)
[2016-10-24] MEDS: TAMSULOSIN 0.4 MG CAPSULE PO SCH (09:01)
[2016-10-24] MEDS: FERROUS SULFATE 300 MG/5 ML UDCUP NG SCH ×2 (09:01→21:38)
[2016-10-24] MEDS: LANSOPRAZOLE ODT 30 MG TABLET PO SCH ×2 (09:01→21:38)
[2016-10-24] MEDS: FINASTERIDE 5 MG TABLET PO SCH (09:02)
[2016-10-24] MEDS: FUROSEMIDE 100 MG/10 ML VIAL IV SCH ×2 (09:02→21:37)
[2016-10-24] MEDS: AMIODARONE 200 MG TABLET PO SCH (09:02)
[2016-10-24] MEDS: amLODIPine 5 MG TABLET PO SCH (09:34)
[2016-10-24] MEDS: cloNIDine 0.2 MG/24 HR PATCH TRANSDERM SCH (09:34)
[2016-10-24] MEDS: DILTIAZEM 60 MG TABLET PO SCH ×4 (09:34→21:15)
[2016-10-24] MEDS: ISOSORBIDE DINITRATE 10 MG TABLET PO SCH ×2 (09:34→21:15)
[2016-10-24] MEDS: METOPROLOL TARTRATE 50 MG TABLET PO SCH ×3 (09:34→21:38)
[2016-10-24] MEDS: EPOETIN ALFA 10,000 UNIT/1 ML VIAL SUBCUT SCH (11:06)
[2016-10-24] MEDS: BACITRACIN OINT 0.9 GM PACK TOP SCH (11:06)
[2016-10-24] MEDS: DESITIN 4OZ/NYSTATIN 15 GRAM MIXTURE PASTE TOP SCH ×2 (11:07→21:38)
--- NOTE | 2016-10-24 14:55 | Hospitalist Progress Note ---
Assessment and Plan (1) Aspiration pneumonia Status: Acute Assessment and plan: The patient is presently stable on the ventilator and making incremental progress toward extubation. Prognosis is poor considering the patient's multiple comorbidities. I coordinated care with Dr. Lord and with Dr. Graham. The patient will continue present care plan. We will recheck electrolytes and CBC in the morning. Current Visit: Yes Qualifiers: Aspiration pneumonia type: due to gastric secretions Lung location: unspecified part of lung (2) History of multiple strokes Status: Chronic Current Visit: No (3) Acute on chronic renal failure Status: Acute Current Visit: No Qualifiers: Chronic kidney disease stage: stage 4 (severe) (4) Patient is Bahai Status: Chronic Current Visit: Yes (5) Chronic respiratory failure Status: Acute Current Visit: Yes Hospitalist: Subjective Interval history: Mr. Kim is a 61-year-old Bahai patient who has recurring aspiration pneumonia following previous stroke. The patient is ventilator dependent after respiratory arrest. He has profound anemia but of course has declined transfusion. The patient's creatinine is 5 and not improving on account of low oxygen transport. The patient is tolerating tube feedings. Exam - Constitutional Vitals: Period Temp Pulse Resp BP Sys/Crespo Pulse Ox Last 24 Hr 96.4 F-97.6 F 57-70 13-50 119-139/45-68 90-99 Exam: Constitutional System: No distress. No tremulousness. The patient is resting on the ventilator but not tolerating spontaneous ventilation trials. Head: Normocephalic, atraumatic. Ears, Nose and Throat System: No evidence of Otitis or Mastoiditis. No epistaxis or discharge Eyes System: Pupils equal, round, and reactive. Extraocular muscles intact. Neck: Supple, without adenopathy, No jugular venous distention. No thyromegaly , neck mass, or prior surgery apparent. Respiratory System: Chest moderate right-sided rhonchi to auscultation. Cardiovascular System: Heart with regular rate and rhythm. No murmur. GI System: Abdomen soft, nontender. Normo active bowel sounds present. Musculoskeletal System: limbs with no pedal edema. Full distal pulses. Neurological System: No discernable sensory deficit. No aphasia Psychiatric System: Conversation is rational Results - Labs CBC & BMP: 10/23/16 04:45 10/23/16 04:45 Lab Results: I have reviewed the past 24 hour labs
[2016-10-24] MEDS: INSULIN GLARGINE 100 UNIT/ML SUBCUT SCH (21:37)
[2016-10-25] MEDS: INSULIN REGULAR 100 UNIT/ML SUBCUT SCH ×2 (00:26→06:43)
[2016-10-25] MEDS: ALBUTEROL 2.5 MG/3 ML NEB RESP TX SCH ×2 (01:35→08:37)
[2016-10-25] MEDS ORDERED: ATROPINE 1 MG/10 ML SYRINGE ONE (08:27)
[2016-10-25] MEDS ORDERED: EPINEPHrine 1 MG/10 ML SYRINGE ONE (08:27)
--- NOTE | 2016-10-25 08:51 | Event Note ---
Called to the bedside as patient oxygen saturations had acutely decline. He was suctioned but difficulty to get return. Moreover despite being on the ventilator he was difficult to do bag ventilation. His ET tube was examined and it showed increased thick secretions noted throughout the tube. The ET tube was removed and he underwent mask ventilation which was difficult. At that time, rhythm on monitor showed bradycardia with a rate of 40. Atropine was given at that time. Moreover a code was called. Chest compressions also started simultaneously once no pulse was appreciated. The patient's sister was immediately notified of the events. The patient's sister subsequently stated she did not want further resuscitation. The code was stopped at 8:00 AM. The patient did not have any spontaneous respirations. No pulse appreciated. The family was notified the patient had at 816AM.
--- NOTE | 2016-10-25 08:53 | Discharge Summary ---
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 Patient's hemoglobin was noted to be 3 hematocrit of 13. Patient serum creatinine had continued to worsen with a creatinine of 5 due to his severe anemia and multisystem failure. A code was called the morning of October 25 due to decreasing oxygenation. He was found to have severe mucus and a mucous plug in his ET tube. That tube was removed and mask ventilation was started during the procedure. Moreover chest compressions and code medications administered. His sister, Ms. Kim, was notified of his change in status and requested no further resuscitation and to stop the resuscitation proceedings. The code was stopped at 8 AM. There was no pulse and no spontaneous respirations. The cardiac rhythm was noted to be flat line at 8:16 AM. Time of 8:16 AM. The patient's sister was notified. MARY as well as the picture hanger were notified. - Time spent with patient Time with patient DS: Greater than 30 minutes - Cause of Cause of : Respiratory failure, anemia, renal failure Diagnosis - Discharge Diagnosis (1) Anemia Status: Chronic (2) Bedbound patient Status: Chronic (3) Hypertension Status: Chronic (4) Diabetes mellitus Status: Chronic (5) CKD stage 4 due to type 2 diabetes mellitus Status: Chronic (6) Patient is Taoism Status: Chronic (7) Respiratory failure Status: Acute (8) Renal failure Status: Acute (9) due to respiratory arrest Status: Acute Discharge Plan - Discharge Data Disposition: Condition at Discharge: - Discharge Medications No Action Sertraline [Zoloft] 25 mg PO DAILY Pregabalin [Lyrica] 225 mg PO BID Metoprolol Tartrate 50 mg PO TID Methocarbamol 500 mg PO BID PRN PRN Reason: Pain Tamsulosin [Flomax] 0.4 mg PO DAILY Finasteride 5 mg PO DAILY cloNIDine TAB [Catapres Tab] 0.1 mg PO Q4H Aspirin EC Tab 81 mg PO QPM Valsartan 80 mg PO QID Pantoprazole Tab [Protonix Tab] 40 mg PO DAILY Simvastatin 20 mg PO BEDTIME Albuterol/Ipratropium Neb [Duoneb] 3 ml RESP TX RT Q4H #120 vial Folic Acid Tab 0.4 mg PO BID #60 tablet Albuterol/Ipratropium Neb [Duoneb] 3 ml RESP TX RT Q4H cloNIDine TAB [Catapres Tab] 0.1 mg PO Q4H Cyanocobalamin Tab [Vitamin B12 Tab] 500 mcg PO BID Ferrous Sulfate Tab [Feosol Original Tab] 325 mg PO BID Finasteride [Proscar] 5 mg PO DAILY Folic Acid Tab 0.4 mg PO BID Isosorbide Mononitrate [Imdur] 30 mg PO DAILY Methocarbamol Tab [Robaxin Tab] 500 mg PO BID PRN PRN Reason: Pain Pantoprazole Tab [Protonix Tab] 40 mg PO DAILY Pregabalin [Lyrica] 225 mg PO BID Sertraline [Zoloft] 25 mg PO DAILY Simvastatin 20 mg PO QPM Valsartan 80 mg PO QID Isosorbide Mononitrate [Imdur] 30 mg PO DAILY Ferrous Sulfate 325 mg PO BID Acetaminophen Tab [Tylenol Tab] 325 mg PO Q4H PRN tablet PRN Reason: fever, headache/body aches Cyanocobalamin Tab [Vitamin B12 Tab] 500 mcg PO BID #60 tablet Insulin Glargine [Lantus] 15 unit SUBCUT BEDTIME #1 packet Acetaminophen Tab [Tylenol Tab] 325 mg PO Q4H PRN PRN Reason: Pain Aspirin EC Tab 81 mg PO QPM Insulin Glargine [Lantus] 15 unit SUBCUT BEDTIME Metoprolol Tartrate Tab [Lopressor Tab] 50 mg PO TID Tamsulosin [Flomax] 0.4 mg PO DAILY - Follow Up or Referral - Forms/Instructions Exam - Constitutional Vitals: Period Temp Pulse Resp BP Sys/Crespo Pulse Ox Last 24 Hr 96.7 F-97.7 F 63-75 11-25 111-143/44-69 92-99 No spontaneous respirations. No heart sounds appreciated. No pulse. Discharge Results Procedures and tests throughout hospitalization: Pending Orders 10/23/16 09:35 Occult Blood, Stool Routine 10/30/16 04:00 Magnesium Routine Phosphorous Routine Prealbumin Routine Labs on day of discharge: Labs from last 24 hours 10/25/16 10/25/16 10/24/16 06:42 00:18 17:36 POC Glucose 75 113 H 130 H 10/24/16 12:21 POC Glucose 142 H DS: Provider Date of admission: 09/30/16 20:40 Primary care physician: . No PCP Attending physician on admission: Tino Estrada MD Consults: 09/30/16 20:45 Consult to Physician [CONS] Routine Comment: Consulting Provider: Brett Lord Consult to Specialist Group: Pulmonology When should Consulting Provider be notified: In am 09/30/16 20:46 Consult to Physician [CONS] Routine Comment: Worsening renal function and hyperkalemia Consulting Provider: Romie Graham Consult to Specialist Group: Nephrology When should Consulting Provider be notified: In am Person Notified: lissette Date Notified: 10/01/16 Time Notified: 11:11 10/01/16 11:49 Consult to Dietitian [CONS] Routine Reason for Dietitian: TF-Initiate/Manage 10/02/16 17:09 Consult to Physician [CONS] Routine Comment: afib Consulting Provider: Allen Friend Consult to Specialist Group: Cardiology When should Consulting Provider be notified: Now Person Notified: Dr. Friend Date Notified: 10/02/16 Time Notified: 17:44 Consult Notification Comment: 10/03/16 10:25 Consult to Physician [CONS] Routine Comment: PEG tube dislodged Consulting Provider: Consult to Specialist Group: Gastroenterology When should Consulting Provider be notified: Now Person Notified: josh @ [email or web address] Date Notified: 10/03/16 Time Notified: 11:17 10/03/16 10:26 Consult to Physician [CONS] Routine Comment: Peg tube came out Consulting Provider: Cayetano Leo When should Consulting Provider be notified: Now Person Notified: josh @ dr leo Date Notified: 10/03/16 Time Notified: 11:17 10/07/16 07:53 Consult to Physician [CONS] Routine Comment: recurrent bilateral pna Consulting Provider: Ivanna Delgado 10/07/16 08:53 Consult to Dietitian [CONS] Routine Reason for Dietitian: Dietary Consult Consult Comment: low potassium, low phosphorus, and renal diet 10/14/16 09:05 Consult to Physician [CONS] Routine Comment: gi bleeding, anemia Consulting Provider: Cayetano Leo 10/18/16 10:34 Consult to Occupational Therapy [CONS] Routine Reason for Occupational Therapy: Evaluate and Treat Consult to Physical Therapy [CONS] Routine Reason for Physical Therapy: Evaluate and Treat Discharging clinician: Omi Rodrigues Jr., MD
--- NOTE | 2016-10-25 09:15 | Pulmonology Progress Note ---
Pulmonary - PN: Subj Interval history: This is a 61-year-old male who is extremely developed a little irritated. 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 He is been tube fed for a number of years. He has been on and off the ventilator because he is unable to clear secretions from his lungs. He has had pulmonary edema and renal failure with a creatinine of about 5. His his his hemoglobin is 3.9. He is a [employer] and will not take blood.. 10/24/2069 chest x-ray showed increased markings at both bases. Endotracheal tube is in good position. Labs been reviewed. Vital signs. Very poor when I made rounds this morning Neurologic. Unable to arouse Chest. Loose large airway congestion Heart. Lateral PMI Abdomen. Rare bowel sounds Extremities contracted. The remainder the exam was noncontributory. After I made rounds this morning patient had a cardiac arrest around 8 AM and resuscitative measures were begun but unsuccessful and the patient subsequently Exam (Progress Note) - Constitutional Vitals: Period Temp Pulse Resp BP Sys/Crespo Pulse Ox Last 24 Hr 96.7 F-97.7 F 64-75 03-21 111-143/44-69 92-99 Results - Labs CBC & BMP: 10/23/16 04:45 10/23/16 04:45
[2016-10-25 11:34] VITALS: BP 122/45
== END 2016-10-25 08:16 | disposition expired | DRG 130 ==
LOC: EDSEX → MERGE 18:34 → N.ED 18:34 → SUATTDRO 20:40 → N.EDINP 20:40 → N.CC 21:15 → N.2E 10-05 15:16 → N.ICU 10-08 19:15
PROVIDERS: ADMIT Internal Medicine; ATTEND Internal Medicine Nephrology